=== PATIENT | female | born 1995 | race Caucasian/White ===

== ENCOUNTER → 2023-07-02 | Outpatient (CLI) | payer OTHER, SELFPAY ==
[2023-07-05 08:11] LABS: Chlamydia By Nucleic Acid AMP Negative (Negative); Gonococcus By Nucleic Acid AMP Negative (Negative)
== END | disposition home or self-care (01) ==
PROVIDERS: Visit Provider Nurse Practitioner Family
DX: N89.8 Other specified noninflammatory disorders of vagina (principal)
CPT/HCPCS: 87070; 87205; 87491; 87591

== ENCOUNTER → 2023-08-01 | Outpatient (CLI) | payer OTHER, SELFPAY ==
--- NOTE | 2023-08-01 10:19 | US_ITS ---
EXAM: US PELVIS TRANSVAGINAL CLINICAL INDICATION: PCOS TECHNIQUE: Endovaginal pelvic ultrasound was performed with grayscale and color Doppler imaging. Endovaginal imaging was used for better evaluation of the endometrium and adnexa. COMPARISON: No relevant prior studies available. FINDINGS: UTERUS/CERVIX: Uterus measures 8.0 x 5.3 x 2.4 cm. Endometrial thickness is 8 mm. RIGHT OVARY: Right ovary measures 7.0 x 6.6 x 6.0 cm and contains a 6 cm complex cyst consistent with hemorrhagic ovarian cyst. No evidence of torsion. LEFT OVARY: Left ovary measures 2.5 x 3.8 x 2.2 cm. Blood flow is present in the left ovary. FREE FLUID: Physiological amount of free fluid noted within the pelvis. US/Transvaginal Non- IMPRESSION: Complex 6 cm right ovarian cystic lesion consistent with hemorrhagic ovarian cyst. Short-interval pelvic ultrasound follow-up (6-12 weeks) is recommended to ensure resolution. Electronically Signed: Zeke Francois MD at 14:57 EDT ,
== END | disposition home or self-care (01) ==
PROVIDERS: PCP Family Medicine; Referring Provider Advanced Practice Midwife; Visit Provider Advanced Practice Midwife
DX: E28.2 Polycystic ovarian syndrome (principal)
CPT/HCPCS: 76830

== ENCOUNTER → 2023-08-08 | Outpatient (CLI) | payer OTHER, SELFPAY ==
[2023-08-08 11:40] LABS: Prolactin 14.1 ng/mL; Thyroid Stim Hormone (TSH) 1.34 uIU/mL (0.358-3.74)
[2023-08-08 12:31] LABS: Hemoglobin A1c 4.8 % (3.8-5.6)
[2023-08-15 01:07] LABS: Testosterone Free 2.6 pg/mL (0.0-4.2)
== END | disposition home or self-care (01) ==
LOC: LAB 10:29
PROVIDERS: PCP Family Medicine; Referring Provider Advanced Practice Midwife; Visit Provider Advanced Practice Midwife
DX: N97.9 Female infertility, unspecified (principal); E28.2 Polycystic ovarian syndrome
CPT/HCPCS: 82627; 83036; 84146; 84402; 84443; 82626

== ENCOUNTER → 2023-09-19 | Outpatient (CLI) | payer OTHER, SELFPAY ==
--- NOTE | 2023-09-19 09:58 | US_ITS ---
STUDY: ULTRASOUND OF THE FEMALE PELVIS - COMPLETE REASON FOR EXAM: Female, 28 years old. 6 week follow up cyst LMP: September 17, 2023. TECHNIQUE: Transvaginal TECHNICAL QUALITY: Adequate. COMPARISON: Comparison is made with prior study dated August 01, 2023. FINDINGS: The uterus is anteverted and is in a midline position. The uterus measures 6.7 cm x 4.5 cm x 2.9 cm. 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 Normal uterine cervix. The endometrium measures 8 mm in thickness, and is heterogeneous (striated). There is no demonstrated endometrial mass. There is no demonstrated myometrial mass. I.U.D. - The patient does not have an I.U.D. The right ovary is visualized. The right ovary measures 3.9 cm x 3.3 cm x 2.2 cm. There is no right ovarian cyst or ovarian mass. There is no visualized right adnexal mass or complex lesion. There is normal arterial and normal venous vascularity. The left ovary is visualized. The left ovary measures 3.8 cm x 3.8 cm x 3.3 cm. There is a dominant follicle measuring 1.8 cm by [place] by 1.9 cm. There is no visualized left adnexal mass or complex lesion. There is normal arterial and normal venous vascularity. There is no fluid in the cul-de-sac. US/Transvaginal Non- IMPRESSION: Interval decrease in size of the complex left ovarian cyst. Electronically Signed: Kwame Gibson MD at 11:01 EDT ,
== END | disposition home or self-care (01) ==
LOC: US 09:56
PROVIDERS: PCP Family Medicine; Referring Provider Advanced Practice Midwife; Visit Provider Advanced Practice Midwife
DX: N83.209 Unspecified ovarian cyst, unspecified side (principal)
CPT/HCPCS: 76830

== ENCOUNTER → 2023-10-30 | Outpatient (CLI) | payer OTHER, SELFPAY ==
[2023-11-01 14:09] LABS: PROGESTERONE 0.4 ng/mL (.)
[2023-11-03 15:08] LABS: Anti-Cardiolipin Ab, IgG, Qn 9 GPL U/mL (0-14); Anti-Cardiolipin Ab, IgM, Qn < 9 MPL U/mL (0-12); Beta-2-Glycoprotein I IgA <9 (0-25); Beta-2-Glycoprotein I IgG <9 (0-20); Beta-2-Glycoprotein I IgM <9 (0-32); Dilute Prothrombin Time (dPT) 31.8 sec (0.0-47.6); Dilute Russell Viper Venom 43.5 sec (0.0-47.0); Interpretation Comment: (.); PTT-LA 39.5 sec (0.0-43.5); Thrombin Time 18.6 sec (0.0-23.0)
== END | disposition home or self-care (01) ==
LOC: LAB 16:41
PROVIDERS: PCP Family Medicine; Referring Provider Advanced Practice Midwife; Visit Provider Advanced Practice Midwife
DX: E28.2 Polycystic ovarian syndrome (principal); N96 Recurrent pregnancy loss
CPT/HCPCS: 36415; 84144; 86146; 86147

== ENCOUNTER → 2023-12-04 | Outpatient (CLI) | payer OTHER, SELFPAY ==
[2023-12-06 08:12] LABS: PROGESTERONE 12.1 ng/mL (.)
== END | disposition home or self-care (01) ==
LOC: LAB 16:59
PROVIDERS: PCP Family Medicine; Referring Provider Advanced Practice Midwife; Visit Provider Advanced Practice Midwife
DX: E28.2 Polycystic ovarian syndrome (principal)
CPT/HCPCS: 36415; 84144

== ENCOUNTER → 2024-01-02 | Outpatient (CLI) | payer OTHER, SELFPAY ==
--- OUTSIDE RECORDS SUMMARY | 2024-01-02 09:15 | XMS RPT_ITS | CCD ---
Author Organization [facility] Care Team Providers Care Security Guard Name Role Phone GALINA WALLACE, DR LARA Primary Care Physician [phone] Galina WALLACE, Marco Espino Primary Care Provider Physician, No Pcp Primary Care Provider Unavaila GABRIELLA Andino Attending Unavailable PHYSICIAN, NO PCP Primary Care Unavailable PHYSICIAN, NO PCP Primary Care Unavailable NONE, NONE Primary Care Unavailable GRULLON DO, FOSTER K Admitting Unavailable GRULLON DO, FOSTER K Attending Unavailable TOM [phone], NASEEM Zapata Consulting U hina AGUERO CONSUMER SERVICES ADVISOR, SHONA Consulting Unavailable NONE, NONE Consulting Unavailable NONE, NONE Primary Care Unavailable YOANA IYER MD Admitting Unavailable YOANA IYER MD Attending Unavailable CORINA REYES, YA PENNINGTON Consulting Unavaila rhianna NUNEZ [phone], OSBALDO Consulting Sarah vacole HESTER [phone], JOHANNE Alvarez Consulting Unavai lable NONE, NONE Consulting Unavailable Marco Mojica MD Primary Care Provider MARCO MOJICA Primary Care Unavailable EMMANUEL MARTELL Attending Unavailabner GORDON MD, ADAM Primary Care Physician CATY WALLACE~[phone], CATY BONILLA V Admitting Unavailable NONE, NONE Consulting Unavailable NONE, NONE Primary Care Unavailable CATY WALLACE~[phone], CATY BONILLA V Attending Unavailable NONE, NONE Consulting Unavailable SOWMYA WALLACE, WOODROW Consulting Unavailable SOWMYA WALLACE, WOODROW Consulting Unavailable CATY WALLACE, CHAD Kaufman Consulting Unavailable CATY WALLACE, CHAD Kaufman Consulting Unavailable GALINA WALLACE, DR LARA Primary Care Unavailable THAD WALLACE, MARU Attending Unavailable DOLLY BLUE-IOANA, LIZ Attending Unavailabner MOJICA MD, DR LARA Primary Care Unavailable GALINA WALLACE, DR LARA Primary Care Unavailable AUGIE HANNAH MD Attending Unavailable LUNA VOSS, CARLEE GEORGE Attending Chela MOJICA MD, DR LARA Primary Care Unavailable DOLLY VOSS, LIZ Attending Yenni MOJICA MD, DR LARA Primary Care Unavailable DOLLY VOSS, LIZ Attending Yenni MOJICA MD, DR LARA Primary Care Unavailable Allergies Allergy Classification Reported Allergen(s) Allergy Type Date of Onset Reaction(s) Facility (4 sources) Contrast media; Translations: [iodinated radiocontrast agents] Drug allergy Dizziness (finding), Weal (disorder) [facility] (8 sources) Gadolinium-Contai shane Contrast Media; Translations: [GADOLINIUM-CONTA INING CONTRAST MEDIA] Drug Allergy 1 [facility] (3 sources) Iodinated Contrast Media; Translations: [IODINATED CONTRAST MEDIA] Drug Allergy 2 [facility] (1 source) Iodine (And Iodine Containting Drugs) Drug allergy (disorder) [facility] Repository Medications Current Medications Medication Drug Class(es) Dates Sig (Normalized) Sig (Original) doxycycline hyclate 100 mg oral capsule (3 sources) Tetracycline-class Drug Start: 2022 End: 02-11-2022 take 1 capsule by mouth twice daily doxycycline hyclate (VIBRAMYCIN) 100 mg capsule Indications: Vaginal discharge Take 1 capsule by mouth twice daily for 7 days. 14 capsule 0 2022 02/11/2022 Active Comment on above: Take 1 capsule by mo [facility] twice daily for 7 days. metroNIDAZOLE 500 mg oral tablet (2 sources) Nitroimidazole Antimicrobial Start: 02-06-2022 End: 02-13-2022 take 1 tablet by mouth twice daily metroNIDAZOLE (FLAGYL) 500 mg tablet Indications: Bacterial vaginosis Take 1 tablet by mouth twice daily for 7 days. 14 tablet 0 02/06/2022 02/13/2022 Active Comment on above: Take [address] [facility] twice daily for 7 days. Pharmacy See ORDER COMMENTS (3 sources) Start: 05-19-2016 Pharmacy See ORDER COMMENTS Start Date: 05/19/16 Status: Ordered progesterone 100 mg vaginal insert (2 sources) Progesterone progesterone (ENDOMETRIN) 100 mg vaginal insert Insert 100 mg into the vagina 2 (two) times a day. 0 Active Completed/Discontinued Medications Medication Drug Class(es) Dates Sig (Normalized) Sig (Original) acetaminophen 325 mg / HYDROcodone bitartrate 5 mg oral tablet (2 sources) Opioid Agonist Start: 02-15-2023 End: 02-18-2023 acetaminophen-hydr ocodone 325 mg-5 mg oral tablet Dose = 1 tab(s), Oral, q6h, PRN for pain, 0 Refill(s), 102 Start Date: 02/19/23 Status: Ordered dicyclomine hydrochloride 20 mg oral tablet (3 sources) Anticholinergic Start: 05-19-2016 End: 05-29-2016 Bentyl 20 mg oral tablet Dose : 20 mg = 1 tab(s), PO, QID, # 40 tab(s), 0 Refill(s) Start Date: 05/19/16 Stop Date: 05/29/16 Status: Ordered Problems Active Problems Problem Classification Problem Date Documented Date Episodic/Chronic Abdominal pain (1 source) Abdominal pain 02-17-2023 Episodic Anxiety disorders (1 source) Anxiety 02-19-2023 Chronic Cardiac dysrhythmias (1 source) Palpitations 02-19-2023 Episodic Diverticulosis and diverticulitis (1 source) Diverticular disease 02-19-2023 Chronic Essential hypertension (2 sources) Essential (primary) hypertension; Translations: [ESSENTIAL PRIMARY HYPERTENSION] Onset: 09-12-2021 Chronic Genitourinary symptoms and ill-defined conditions (1 source) Dysuria; Translations: [Dysuria] Episodic Inflammatory diseases of female pelvic organs (1 source) Bacterial vaginosis; Translations: [Acute vaginitis] Episodic Mood disorders (1 source) Depressive disorder 02-19-2023 Chronic Other female genital disorders (1 source) Vaginal discharge; Translations: [Other specified noninflammatory disorders of vagina] Episodic Other hematologic conditions (2 sources) Splenic cyst; Translations: [Cyst of spleen] Onset: 02-15-2023 Episodic Spontaneous (1 source) Miscarriage; Translations: [Complete or unspecified spontaneous without complication] Episodic Sprains and strains (3 sources) Strain of muscle, fascia and tendon of lower back, initial encounter; Translations: [STRAIN MUSC FASC TENDON LW BACK INT] Onset: 05-30-2022 Episodic Past or Other Problems Problem Classification Problem Date Documented Da te Episodic/Chronic Nonspecific chest pain (2 sources) Chest pain, unspecified; Translations: [CHEST PAIN UNSPECIFIED] Onset: 03-13-2021 Episodic Results Test Name Value Interpretation Reference Range Facil ity [facility] LCon 03-05-2023 Order Number [id number] [facility]) Comment on above: Performed By: #### 9 [id number] #### [address] [address] LC Test Name echinoccus granulosis ab Normal [facility] ([place]) Comment on above: Performed By: #### 9 [id number] #### [address] [place] [address] Test Source see report [facility]) Comment on above: Performed By: #### 9 [id number] #### [address] [address] [facility] Test Result COMMENT Normal [facility]) Comment on above: Result Comment: Test Ordered: [id number] Echinococcus Antibody Echinococcus Antibody Equivocal Reference Range: Negative Performed At: [facility] [address] [id number] Gia Mcgowan PhD Ph:[phone] Performed At: [facility] [address] [id number] Eric Chavira MD Ph:[phone] Performed By: #### 9 [id number] #### [address] [address] .Auto Diffon 02-15-2023 Basophil, Absolute 0.0 10 3/mcL Normal 0.0-0.2 [facility]) Comment on above: Performed By: #### A YAN WALLS, ADIFF, GFR, CBC, LIP, CMP #### [address] [address] Basophils/100 WBC (Bld) 0.3 % Normal 0.0-2.5 [facility]) Comment on above: Performed By: #### A YAN WALLS, ADIFF, GFR, CBC, LIP, CMP #### [address] [address] Eosinophil, Absolute 0.0 10 3/mcL Normal 0.0-0.4 [facility] ([place]) Comment on above: Performed By: #### A YAN WALLS, ADIFF, GFR, CBC, LIP, CMP #### [address] [address] Eosinophils/100 WBC (Bld) 0.7 % Normal 0.0-7.0 [facility] ([place]) Comment on above: Performed By: #### A YAN WALLS, ADIFF, GFR, CBC, LIP, CMP #### [address] [address] Lymphocyte, Absolute 2.1 10 3/mcL Normal 0.8-3.9 [facility] ([place]) Comment on above: Performed By: #### A YAN WALLS, SCOTTIFF, GFR, CBC, LIP, CMP #### [address] [address] Lymphocytes/100 WBC (Bld) 29.5 % Normal 10.0-50.0 [facility] ([place]) Comment on above: Performed By: #### A YAN WALLS, ADIFF, GFR, CBC, LIP, CMP #### [address] [address] Monocyte, Absolute 0.4 10 3/mcL Normal 0.2-1.0 [facility] ([place]) Comment on above: Performed By: #### A YAN WALLS, ADIFF, GFR, CBC, LIP, CMP #### [address] [address] Monocytes/100 WBC (Bld) 5.5 % Normal 1.7-13.0 [facility] ([place] Comment on above: Performed By: #### A YAN WALLS, ADIFF, GFR, CBC, LIP, CMP #### [address] [address] Neutrophils/100 WBC (Bld) 64.0 % Normal 37.0-80.0 [facility] ([place] Comment on above: Performed By: #### A YAN WALLS, ADIFF, GFR, CBC, LIP, CMP #### [address] [address] .GFRon 02-15-2023 GFR 149 ml/min/1.73sqm Normal [facility] ([place]) Comment on above: Result Comment: GFR Population mean for , Non- Americans Ages 20-29 = 116 mL/min/1.73 sq.m. Ages 30-39 = 107 mL/min/1.73 sq.m. Ages 40-49 = 99 mL/min/1.73 sq.m. Ages 50-59 = 93 mL/min/1.73 sq.m. Ages 60-69 = 85 mL/min/1.73 sq.m. Ages 70+ = 75 mL/min/1.73 sq.m. Chronic Kidney Disease: Less than 60 mL/min/1.73 square meters End Stage Renal Disease: Less than 15 mL/min/1.73 square meters Performed By: #### A YAN WALLS, ADIFF, GFR, CBC, LIP, CMP #### [address] [address] GFR Non- 123 ml/min/1.73sqm Normal [facility] ([place] Comment on above: Result Comment: GFR Population mean for , Non- Americans Ages 20-29 = 116 mL/min/1.73 sq.m. Ages 30-39 = 107 mL/min/1.73 sq.m. Ages 40-49 = 99 mL/min/1.73 sq.m. Ages 50-59 = 93 mL/min/1.73 sq.m. Ages 60-69 = 85 mL/min/1.73 sq.m. Ages 70+ = 75 mL/min/1.73 sq.m. Chronic Kidney Disease: Less than 60 mL/min/1.73 square meters End Stage Renal Disease: Less than 15 mL/min/1.73 square meters Performed By: #### A YAN WALLS, ADIFF, GFR, CBC, LIP, CMP #### [address] [address] .MDWon 02-15-2023 Monocyte Distribution Width 18.17 Normal 0.00-20.00 [facility] ([place]) Comment on above: Result Comment: For ED adult patients suspected of sepsis, MDW<=20.0 does not rule out sepsis or risk of sepsis Performed By: #### A YAN WALLS, ADIFF, GFR, CBC, LIP, CMP #### [place] [address] .NEUABSon 02-15-2023 Neutrophil, Absolute 4.5 10 3/mcL Normal 2.9-6.2 [facility] ([place] Comment on above: Performed By: #### A YAN WALLS, ADUZMA, GFR, CBC, LIP, CMP #### [place] [address] .Urinalysis Microscopic (AO) on 02-15-2023 UA Amorphus Trace Normal [facility] ([place] Comment on above: Performed By: #### 9 16462 #### [place] [address] UA Bacteria Trace Abnormal [facility] ([place] Comment on above: Performed By: #### 9 [address] #### [place] [address] UA Mucous 4+ /hpf Normal [facility] ([place] Comment on above: Performed By: #### 9 [address]38[address] #### [place] [address] UA RBC None Seen Normal None Seen [facility] [place] Comment on above: Performed By: #### 9 [id number] #### [place] [address] UA Squam Epithelial 5-10 Abnormal None Seen [facility] ([place] Comment on above: Performed By: #### 9 [address]1636 #### [place] [address] UA WBC 0-5 Abnormal None Seen [facility] [place] Comment on above: Performed By: #### 9 28069 #### [place] [address] CBCon 02-15-2023 Erythrocyte distribution width (RBC) [Ratio] 12.6 % Normal 11.5-14.5 [facility] ([place] Comment on above: Performed By: #### A YAN WALLS, ANIA, GFR, CBC, LIP, CMP #### [address] [address] Hematocrit (Bld) [Volume fraction] 45.3 % Normal 37.0-47.0 [facility] ([place] Comment on above: Performed By: #### A YAN WALLS, ANIA, GFR, CBC, LIP, CMP #### [place] [address] Hgb 15.3 G/dL Normal 12.0-16.0 [facility] [place] Comment on above: Performed By: #### A YAN WALLS, ANIA, GFR, CBC, LIP, CMP #### [place] [id number] MCH (RBC) [Entitic mass] 28.9 pg Normal 27.0-31.2 [facility] ([place] Comment on above: Performed By: #### A YAN WALLS, ANIA, GFR, CBC, LIP, CMP #### [place] [address] MCHC 33.7 G/dL Normal 33.0-37.0 [facility] [place] Comment on above: Performed By: #### A YAN WALLS, ANIA, GFR, CBC, LIP, CMP #### [place] [address] MCV (RBC) [Entitic vol] 85.7 fL Normal 80.0-94.0 [facility] [place] Comment on above: Performed By: #### A YAN WALLS, ANIA, GFR, CBC, LIP, CMP #### [place] [id number] Platelet 250 10 3/mcL Normal 130-400 [facility] ([place] Comment on above: Performed By: #### A YAN WALLS, ADIFF, GFR, CBC, LIP, CMP #### [address] [address] Platelet mean volume (Bld) [Entitic vol] 9.8 fL Normal 7.4-10.4 [facility] ([place] Comment on above: Performed By: #### A YAN WALLS, ANIA, GFR, CBC, LIP, CMP #### [address] [address] RBC 5.29 10 6/mcL Normal 4.20-5.40 [facility] ([place] Comment on above: Performed By: #### A YAN WALLS, ANIA, GFR, CBC, LIP, CMP #### [address] [address] WBC 7.0 10 3/mcL Normal 4.6-10.8 [facility] [place] Comment on above: Performed By: #### A YAN WALLS, ANIA, GFR, CBC, LIP, CMP #### [address] [address] CMPon 02-15-2023 Albumin Level 4.5 G/dL Normal 3.5-5.0 [facility] [place] Comment on above: Performed By: #### A YAN WALLS, ANIA, GFR, CBC, LIP, CMP #### [address] [address] Albumin/Globulin [Mass ratio] 1.2 {ratio} Normal 1.1-2.5 [facility] ([place] Comment on above: Performed By: #### A YAN WALLS, ANIA, GFR, CBC, LIP, CMP #### [address] [address] ALP [Catalytic activity/Vol] 101 U/L Normal 40-135 [facility] ([place] Comment on above: Performed By: #### A YAN WALLS, SCOTTIFF, GFR, CBC, LIP, CMP #### [address] [address] ALT [Catalytic activity/Vol] 29 U/L Normal 14-59 [facility] ([place] Comment on above: Performed By: #### A YAN WALLS, SCOTTIFF, GFR, CBC, LIP, CMP #### [address] [address] AST [Catalytic activity/Vol] 15 U/L Normal 10-40 [facility] ([place] Comment on above: Performed By: #### A YAN WALLS, ADIFF, GFR, CBC, LIP, CMP #### [address] [address] Bili Total 0.6 mg/dL Normal 0.2-1.0 [facility] ([place] Comment on above: Result Comment: Use of this assay is not recommended for patients undergoing treatment with eltrombopag due to the potential for falsely elevated results. Performed By: #### A YAN WALLS, ANIA, GFR, CBC, LIP, CMP #### [place] [id number] BUN/Creatinine Ratio 12 ratio Normal 7-27 [facility] ([place]) Comment on above: Performed By: #### A YAN WALLS, ANIA, GFR, CBC, LIP, CMP #### [address] [address] Calcium [Mass/Vol] 10.0 mg/dL Normal 8.4-10.2 [facility] ([place]) Comment on above: Performed By: #### A YAN WALLS, ANIA, GFR, CBC, LIP, CMP #### [address] [address] Chloride [Moles/Vol] 98 mmol/L Normal 98-107 [facility] ([place] Comment on above: Performed By: #### A YAN WALLS, ANIA, GFR, CBC, LIP, CMP #### [address] [address] CO2 [Moles/Vol] 25 mmol/L Normal 22-29 [facility] ([place] Comment on above: Performed By: #### A YAN WALLS, SCOTTIFF, GFR, CBC, LIP, CMP #### [address] [place] [address] Creatinine [Mass/Vol] 0.59 mg/dL Normal 0.55-1.02 [facility] ([place]) Comment on above: Performed By: #### A YAN WALLS, ANIA, GFR, CBC, LIP, CMP #### [address] [address] Electrolyte Balance 11.0 mEq/L Normal 4.0-15.0 [facility] ([place] Comment on above: Performed By: #### A YAN WALLS, ANIA, GFR, CBC, LIP, CMP #### [address] [address] Globulin 3.8 G/dL Normal [facility] ([place] Comment on above: Performed By: #### A YAN WALLS, ANIA, GFR, CBC, LIP, CMP #### [address] [address] Glucose [Mass/Vol] 101 mg/dL Normal 70-105 [facility] ([place] Comment on above: Performed By: #### A YAN WALLS, ANIA, GFR, CBC, LIP, CMP #### [address] [address] Potassium [Moles/Vol] 3.8 mmol/L Normal 3.5-5.1 [facility] ([place] Comment on above: Performed By: #### A YAN WALLS, ANIA, GFR, CBC, LIP, CMP #### [address] [address] Sodium [Moles/Vol] 134 mmol/L Low 136-145 [facility] ([place] Comment on above: Performed By: #### A YAN WALLS, ANIA, GFR, CBC, LIP, CMP #### [address] [address] Total Protein 8.3 G/dL High 6.4-8.2 [facility] ([place] Comment on above: Performed By: #### A YAN WALLS, SCOTTIFF, GFR, CBC, LIP, CMP #### [place] [address] [place], [place] [address] Urea nitrogen [Mass/Vol] 7 mg/dL Normal 7-18 [facility] ([place] Comment on above: Performed By: #### A YAN WALLS, ADIFF, GFR, CBC, LIP, CMP #### [place] [address] [place], [place] [address] CT ABD/PELVIS W/ IV CONTRAST ONLYon 02-15-2023 CT ABD/PELVIS W/ IV CONTRAST ONLY ORIGINAL EXAMINATION: CT OF THE ABDOMEN AND PELVIS WITH [id number]/9/2023 1:[address] ABDOMEN/PELVIS WITH CONTRAST TECHNIQUE: CT of the abdomen and pelvis was performed with the administration of intravenous contrast. Multiplanar reformatted images are provided for review. Automated exposure control, iterative reconstruction, and/or weight based adjustment of the mA/kV was utilized to reduce the radiation dose to as low as reasonably achievable. COMPARISON: 03/07/2022 MRI abdomen HISTORY: ORDERING SYSTEM PROVIDED HISTORY: Reason for Exam: Left upper pain FINDINGS: There are no lower thoracic findings. Liver: Normal size and density. No mass or biliary dilatation. Gallbladder: Physiologically distended and otherwise unremarkable in appearance. Common duct: Not dilated. Pancreas: No mass, inflammation, calcification or adjacent fluid collection. Stomach and duodenum: No mass or wall thickening. Spleen: Solid no mass and is normal in size. Cyst in the anterior spleen has increased in size, it measures 6.4 cm on today's study, it measured 4.6 cm on the prior study. Right Kidney: No hydronephrosis, solid mass or visible stone. Left Kidney: No hydronephrosis, solid mass or visible stone. Adrenal glands: Normal The large and small bowel loops are unremarkable in appearance. There is a normal appendix in the RIGHT lower quadrant. Retroperitoneum: No lymphadenopathy or hematoma. Aorta: No aneurysm. Urinary bladder: Normal Uterus and adnexal structures are unremarkable. Mesentery: No mass or inflammatory change. No ascites or free air. No abdominal wall masses or external hernias There are no suspicious bone lesions. IMPRESSION: Left-sided anterior splenic cyst which is increased in size compared to the prior study as above, this could relate to left upper quadrant pain. There is no visible acute process. Interpreted by: Domenico Lopes MD Preliminary Report By: Domenico Lopes MD Electronically signed By Domenico Lopes MD Dictated Date: 02/15/2023 1:29:53 PM Prelim Date: 02/15/2023 1:35:36 PM Sign Date: 02/15/2023 1:35:36 PM Ordering Provider: AUGIE Fagan [facility] ([place]) LABORATORYOrdered By: SYSTEM SYSTEM on 02-15-2023 Albumin BCP dye [Mass/Vol] 4.5 G/dL Normal 3.5 - 5.0 G/dL AO ADM SS Albumin/Globulin [Mass ratio] 1.2 {ratio} Normal 1.1 - 2.5 ratio AO ADM SS ALP [Catalytic activity/Vol] 101 U/L Normal 40 - 135 U/L AO ADM SS ALT With P-5'-P [Catalytic activity/Vol] 29 U/L Normal 14 - 59 U/L AO ADM SS AST With P-5'-P [Catalytic activity/Vol] 15 U/L Normal 10 - 40 U/L AO ADM SS Basophil, Absolute 0.0 103/mcL Normal 0.0 - 0.2 10^3/mcL AO Workflow SS Basophils/100 WBC (Bld) 0.3 % Normal 0.0 - 2.5 % AO Workflow SS Bilirubin [Mass/Vol] 0.6 mg/dL Normal 0.2 - 1.0 mg/dL AO ADM SS Comment on above: Interpretive Data: U se of this assay is not recommended for patients undergoing treatment with eltrombopag due to the potential for falsely elevated results. Calcium [Mass/Vol] 10.0 mg/dL Normal 8.4 - 10. 2 mg/dL AO ADM SS Chloride [Moles/Vol] 98 mmol/L Normal 98 - 107 mmol/L AO ADM SS CO2 [Moles/Vol] 25 mmol/L Normal 22 - 29 mmol/L AO AD M SS Creatinine [Mass/Vol] 0.59 mg/dL Normal 0.55 - 1.02 mg/dL AO ADM SS Electrolyte Balance 11.0 mEq/L Normal 4.0 - 15 .0 mEq/L AO ADM SS Eosinophil, Absolute 0.0 103/mcL Normal 0.0 - 0 .4 10^3/mcL AO Workflow SS Eosinophils/100 WBC (Bld) 0.7 % Normal 0.0 - 7.0 % AO Workflow SS Erythrocyte distribution width (RBC) [Ratio] 12.6 % Normal 11.5 - 14.5 % AO Workflow SS GFR/1.73 sq M.predicted among blacks MDRD (S/P/Bld) [Vol rate/Area] 149 ml/min/1.73sqm Invalid Interpretation Code AO Chemistry S Comment on above: Interpretive Data: GFR Population mean for , Non- Americans Ages 20-29 = 116 mL/min/1.73 sq.m. Ages 30-39 = 107 mL/min/1.73 sq.m. Ages 40-49 = 99 mL/min/1.73 sq.m. Ages 50-59 = 93 mL/min/1.73 sq.m. Ages 60-69 = 85 mL/min/1.73 sq.m. Ages 70+ = 75 mL/min/1.73 sq.m. Chronic Kidney Disease: Less than 60 mL/min/1.73 square meters End Stage Renal Disease: Less than 15 mL/min/1.73 square meters GFR/1.73 sq M.predicted among non-blacks MDRD (S/P/Bld) [Vol rate/Area] 123 ml/min/1.73sqm Invalid Interpretation Code AO Chemistry S Comment on above: Interpretive Data: GFR Population mean for , Non- Americans Ages 20-29 = 116 mL/min/1.73 sq.m. Ages 30-39 = 107 mL/min/1.73 sq.m. Ages 40-49 = 99 mL/min/1.73 sq.m. Ages 50-59 = 93 mL/min/1.73 sq.m. Ages 60-69 = 85 mL/min/1.73 sq.m. Ages 70+ = 75 mL/min/1.73 sq.m. Chronic Kidney Disease: Less than 60 mL/min/1.73 square meters End Stage Renal Disease: Less than 15 mL/min/1.73 square meters Globulin 3.8 G/dL Invalid Interpretation Code AO ADM SS Glucose [Mass/Vol] 101 mg/dL Normal 70 - 105 mg/dL AO ADM SS Hematocrit (Bld) [Volume fraction] 45.3 % Normal 37.0 - 47.0 % AO Workflow SS Hemoglobin (Bld) [Mass/Vol] 15.3 G/dL Normal 12.0 - 16.0 G/dL AO Workflow SS Lipase [Catalytic activity/Vol] 18 U/L Normal 16 - 77 U/L AO ADM SS Lymphocyte, Absolute 2.1 103/mcL Normal 0.8 - 3 .9 10^3/mcL AO Workflow SS Lymphocytes/100 WBC (Bld) 29.5 % Normal 10.0 - 50.0 % AO Workflow SS MCH (RBC) [Entitic mass] 28.9 pg Normal 27.0 - 31.2 pg AO Workflow SS MCHC 33.7 G/dL Normal 33.0 - 37.0 G/dL AO Workflow SS MCV (RBC) [Entitic vol] 85.7 fL Normal 80.0 - 94.0 fL AO Workflow SS Monocyte distribution width Auto (Bld) [Entitic vol] 18.17 1 Normal 0.00 - 20.00 AO Workflow SS Comment on above: Result Comment: For ED adult patients suspected of sepsis, MDW<=20.0 does not rule out sepsis or risk of sepsis Monocyte, Absolute 0.4 103/mcL Normal 0.2 - 1.0 10^3/mcL AO Workflow SS Monocytes/100 WBC (Bld) 5.5 % Normal 1.7 - 13.0 % AO Workflow SS Neutrophil, Absolute 4.5 103/mcL Normal 2.9 - 6 .2 10^3/mcL AO Workflow SS Neutrophils/100 WBC (Bld) 64.0 % Normal 37.0 - 80.0 % AO Workflow SS Platelet mean volume (Bld) [Entitic vol] 9.8 fL Normal 7.4 - 10.4 fL AO Workflow SS Platelets (Bld) [#/Vol] 250 103/mcL Normal 130 - 400 10^3/mcL AO Workflow SS Potassium [Moles/Vol] 3.8 mmol/L Normal 3.5 - 5.1 mmol/L AO ADM SS Protein [Mass/Vol] 8.3 G/dL High 6.4 - 8.2 G/dL AO ADM SS RBC (Bld) [#/Vol] 5.29 106/mcL Normal 4.20 - 5.4 0 10^6/mcL AO Workflow SS Sodium [Moles/Vol] 134 mmol/L Low 136 - 145 mmol/L AO ADM SS Urea nitrogen [Mass/Vol] 7 mg/dL Normal 7 - 18 mg/dL AO ADM SS Urea nitrogen/Creatinine [Mass ratio] 12 ratio Normal 7 - 27 ratio AO ADM SS WBC (Bld) [#/Vol] 7.0 103/mcL Normal 4.6 - 10.8 10^3/mcL AO Workflow SS LABORATORYOrdered By: Sherry Haney on 02-15-2023 Appearance (U) Cloudy *ABN* (02/15/23 12:24 PM) Invalid Interpretation Code Clear AO Auto Urine SS Bacteria LM.HPF (Urine sed) [#/Area] Trace /HPF Invalid Interpretation Code AO Auto Urine SS Bilirubin Ql (U) Negative (02/15/23 12:24 PM) Normal Negative AO Auto Urine SS Color (U) Yellow (02/15/23 12:24 PM) Normal AO Auto Urine SS Crystals.amorphous LM.HPF (Urine sed) [#/Area] Trace /HPF Normal AO Auto Urine SS Glucose Test strip (U) [Mass/Vol] Negative Normal Negative AO Auto Urine SS HCG ( test) Ql Negative (02/15/23 12:24 PM) Normal AO Manual Urine SS Hemoglobin Auto test strip (U) [Mass/Vol] Negative (02/15/23 12:24 PM) Normal Negative AO Auto Urine SS Ketones Ql (U) Negative Normal Negative AO Auto Ur ine SS test (u) int Not detected Invalid Interpretation Code AO Manual Urine SS UA Leuk Est Negative (02/15/23 12:24 PM) Normal Negative AO Auto Urine SS UA Mucous 4+ /HPF Normal AO Auto Urine SS UA Nitrite Negative (02/15/23 12:24 PM) Normal Negative AO Auto Urine SS UA pH 6.0 (02/15/23 12:24 PM) Normal 5.0 - 8.0 AO Auto Urine SS UA Protein Negative Normal Negative AO Auto Urine SS UA RBC None Seen /HPF Normal None Seen AO Auto Ur ine SS UA Spec Grav 1.025 (02/15/23 12:24 PM) Normal 1.015-1.025 AO Auto Urine SS UA Specimen Type Clean Catch (02/15/23 12:24 PM) Normal AO Auto Urine SS UA Squam Epithelial 5-10 /HPF Invalid Interpretation Code None Seen AO Auto Urine SS UA Urobilinogen 0.2 E.U./dL Normal 0.2-1.0 AO Auto Urine SS WBC LM.HPF (Urine sed) [#/Area] 0-5 /HPF Invalid Interpretation Code None Seen AO Auto Urine SS LIPon 02-15-2023 Lipase Level 18 U/L Normal 16-77 [facility] ([place]) Comment on above: Performed By: #### A TITI, MDW, ADIFF, GFR, CBC, LIP, CMP #### Porf[address]io [address] [address] PREGUon 02-15-2023 HCG ( test) Ql (U) Negative Normal [facility] ([place] Comment on above: Performed By: #### P REGU, UA, UAMICAO #### Por[address]irio [address] [address] test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 on above: Performed By: #### 1 9-0, , , ####[facility] Director - Mary Shaffer [id number] HGFR GLOMERULAR FILTRATION RATE INTERPRETATION~The eGFR is calculated using the MDRD equation.~This equation has been validated in patients with chronic kidney disease;~however, it underestimates the GFR in healthy patients with GFR's over 60 mL/min.~The equation is not valid in children under the age of 18.~NOTE: Criteria for Chronic Kidney Disease:~ ~1. Kidney damage for at least three months, as defined~by structural or functional abnormalities of the kidney,~with or without decreased glomerular filtration rate, manifested by either:~* Pathological abnormalities or~* Markers of Kidney damage, including abnormalities in~the composition of the blood or urine or abnormalities in imaging tests.~ ~2. GFR <60 mL/min/1.73 m squared for at least three months, with or without kidney damage.~ Normal [facility] Comment on above: Performed By: #### 1 9-0, , , ####[facility] Director - Mary Shaffer [id number] Potassium [Moles/Vol] 3.7 mmol/L Normal 3.5-5.1 [facility] Comment on above: Performed By: #### 1 9-0, , , ####[facility] - Mary Shaffer [id number] Protein [Mass/Vol] 6.8 g/dL Normal 6.4-8.2 [facility] Comment on above: Performed By: #### 1 9-0, , , ####[facility] Director - Mary Shaffer [id number] Sodium [Moles/Vol] 134 mmol/L Low 136-145 [facility] Comment on above: Performed By: #### 1 9-0, , , ####[facility] Director - Mary Shaffer [id number] Urea nitrogen [Mass/Vol] 7 mg/dL Normal 7-17 [facility] Comment on above: Performed By: #### 1 9-0, , , ####[facility] Director - Mary Shaffer [id number] Drugs identified Screen Nom (U)on 09-12-2021 Amphetamines Ql (U) Not detected Normal CUTOFF = 500 K [facility] Comment on above: Performed By: #### 1 2286-1 #### [facility] [address] [place] [address] T[employer]ode[employer] Rider - Mary GAUTAM [id number] Barbiturates Ql (U) Not detected Normal CUTOFF = 200 K [facility] Comment on above: Performed By: #### 1 2286-1 #### [facility] [address] [place] [address] [employer] - Mary GAUTAM [id number] Benzodiazepines Ql (U) Not detected Normal CUTOFF = 15 0 [facility] Comment on above: Performed By: #### 1 2286-1 #### [facility] [address] [place] [address] [employer] - Mary GAUTAM [id number] Cocaine Ql (U) Not detected Normal CUTOFF = 150 [facility] Comment on above: Performed By: #### 1 2286-1 #### [facility] [address] [place] [address] T[employer] Rode[employer] Rider - Mary Parra MILO [id number] [facility] Drugs of abuse screening provides only a preliminary analytical test result. A more specific alternate chemical method must be used in order to obtain a confimed analytical result. Clinical consideration and professional judgment should be applied to any drug of abuse test result, particularly when preliminary positive results are obtained. Normal [facility] Comment on above: Performed By: #### 1 2286-1 #### [facility] [address] [place] [address] Trick Rodeo Rider - [facility]Es[facility] HospitalIA [id number] Methadone Ql (U) Not detected Normal CUTOFF = 200 [facility] Comment on above: Performed By: #### 1 2286-1 #### [facility] [address] [place] [address] Trick Rodeo Rider - [facility] [id number] Opiates Ql (U) Not detected Normal CUTOFF = 300 [facility] Comment on above: Performed By: #### 1 2286-1 #### [facility] [address] [place] [address] Trick Rodeo Rider - [facility] CenterIA [id number] oxyCODONE Ql (U) Not detected Normal CUTOFF = 100 [facility] Comment on above: Performed By: #### 1 2286-1 #### [facility] [address] [place] [address] Trick Rodeo Rider - [facility] Center[facility] [id number] Phencyclidine Ql (U) Not detected Normal CUTOFF = 25 [facility] Comment on above: Performed By: #### 1 2286-1 #### [facility] [address] [place] [address] Trick Rodeo Rider - [facility] CenterIA [id number] Tetrahydrocannabinol Ql (U) Not detected Normal CUTOFF = 50 [facility] Comment on above: Performed By: #### 1 2286-1 #### [facility] [address] [place], [place] [address] [employer]ider - Mary PORTILLOIA [id number] HCG ( test) Ql (U)o n 09-12-2021 Beta HCG ( test) Ql (U) Negative Normal NEGATIVE [facility] Comment on above: Performed By: #### 2 106-3 #### [facility] [address] [place] [address] T[employer] Rode[employer] Rider - Mary PORTILLOIA [id number] #### UAR #### [place] [address] [place] [address] Trick [employer]ider - Mary PORTILLOIA [id number] Performed for [place] [address] [place] [address] HCG BLOODon 09-12-2021 HCG.beta subunit Qn m[IU]/mL Normal 1-3 [facility] Comment on above: Performed By: #### 1 1579-0, 00623-4, 70093-5, 72746-1 ####[place] [address] Director - Mary Shaffer [id number] HCG.beta subunit Qnon 2021 [facility] HCG INTERPRETATION The expected values were calculated non-parametrically and represent the central 95% of the population. When borderline results are encountered, patient samples should be drawn 48 hours later. The concentration of HCG rises rapidly during early . Gestational Age Expected HCG Values 0.2-1 week 5-50 1-2 weeks 50-500 2-3 weeks 100-5000 3-4 weeks 500-10,000 4-5 weeks 1000-50,000 5-6 weeks 10,000-100,000 6-8 weeks 15,000-200,000 2-3 months 10,000-100,000 Normal [facility] Comment on above: Performed By: #### 1 1579-0, 09289-9, 22223-0, 61362-2 ####[facility], [place] [address]Xayozwr Director - Mary Shaffer [id number] MAGNESIUMon 09-12-2021 Magnesium [Mass/Vol] 2.1 mg/dL Normal 1.6-2.6 [facility] Comment on above: Performed By: #### 1 1579-0, 85042-9, 59721-1, ####[facility] [address]Medical Director - Mary Shaffer [id number] TROPONIN HIGH SENSITIVITYon 09-12-2021 TNIH <3.00 Normal <=59.00 [facility] Comment on above: Result Comment: <59 pg/mL is considered a negative result. Performed By: #### T ROP2 #### [facility] [address] [place] [address] T[employer] Rode[employer] Rider - Mary GAUTAM [id number] TSH DL <= 0.05 mIU/L Qnon TSH Qn 1.200 uIU/mL Normal 0.358-3.740 [facility] Comment on above: Performed By: #### 1 1579-0, 33722-4, 15645-6, ####[facility] [address]Medical Director - Mary Shaffer [id number] URINALYSIS with reflex to CU LTUREon 09-12-2021 BACTERIA Normal TRACE [facility] Comment on above: Performed By: #### 2 106-3 #### [facility] [address] [place] [address] T[employer] Rode[employer] Rider - Mary GAUTAM [id number] #### UAR #### [facility] [address] [place] [address] T[employer] Rode[employer] Rider - Mary GAUTAM [id number] Performed for [facility] [address] [place] [address] Bilirubin Ql (U) Negative Normal NEGATIVE [facility] Comment on above: Performed By: #### 2 106-3 #### [facility] [address] [place] [address] T[employer] Rode[employer] Rider - Mary GAUTAM [id number] #### UAR #### [facility] [address] [place] [address] T[employer] Rode[employer] Rider - Mary GAUTAM [id number] Performed for [facility] [address] [place] [address] Clarity (U) CLEAR Normal CLEAR [facility] Comment on above: Performed By: #### 2 106-3 #### [facility] [address] [place] [address] T[employer] Rode[employer] Rider - Mary GAUTAM [id number] #### UAR #### [facility] [address] [place] [address] T[employer] Rode[employer] Rider - Mary GAUTAM [id number] Performed for [facility] [address] [place] [address] Color (U) YELLOW Normal YELLOW [facility] Comment on above: Performed By: #### 2 106-3 #### [facility] [address] [place] [address] T[employer] Rode[employer] Rider - Mary GAUTAM [id number] #### UAR #### [facility] [address] [place] [address] Trick Rode[employer] Rider - Mary GAUTAM [id number] Performed for [facility] [address] [place] [address] Glucose Ql (U) Negative Normal NEGATIVE [facility] Comment on above: Performed By: #### 2 106-3 #### [facility] [address] [place] [address] T[employer] Rode[employer] Rider - Mary GAUTAM [id number] #### UAR #### [facility] [address] [place] [address] Trick Rode[employer] Rider - Mary GAUTAM [id number] Performed for [facility] [address] [place] [address] Hemoglobin Ql (U) Negative Normal NEGATIVE [facility] Comment on above: Performed By: #### 2 106-3 #### [facility] [address] [place] [address] Trick Rodeo Rider - aMry GAUTAM [id number] #### UAR #### [facility] [address] [place] [address] Trick Rode[employer] Rider - Mary GAUTAM [id number] Performed for [facility] [address] [place] [address] HMICRO MICROSCOPIC Normal [facility] Comment on above: Performed By: #### 2 106-3 #### [facility] [address] [place] [address] Trick Rode[employer] Rider - Mary GAUTAM [id number] #### UAR #### [facility] [address] [place] [address] Trick Rodeo Rider - Mayr GAUTAM [id number] Performed for [facility] [address] [place] [address] Hyaline casts (Urine sed) [#/Area] Normal 0-8 [facility] Comment on above: Performed By: #### 2 106-3 #### [facility] [address] [place] [address] Trick Rodeo Rider - Mary GAUTAM [id number] #### UAR #### [facility] [address] [place] [address] Trick Rodeo Rider - Mary GAUTAM [id number] Performed for [facility] [address] [place] [address] KETONE Negative Normal NEGATIVE [facility] Comment on above: Performed By: #### 2 106-3 #### [facility] [address] [place] [address] Trick Rodeo Rider - Mary GAUTAM [id number] #### UAR #### [facility] [address] [place] [address] Trick Rodeo Rider - Mary GAUTAM [id number] Performed for [facility] [address] [place] [address] Leukocyte esterase Test strip Ql (U) Negative Normal TRACE [facility] Comment on above: Performed By: #### 2 106-3 #### [facility] [address] [place] [address] Trick Rode[employer] Rider - Mary GAUTAM [id number] #### UAR #### [facility] [address] [place] [address] Trick Rode[employer] Rider - Mary GAUTAM [id number] Performed for [facility] [address] [place] [address] Nitrite Ql (U) Negative Normal NEGATIVE [facility] Comment on above: Performed By: #### 2 106-3 #### [facility] [address] [place] [address] Trick Rode[employer] Rider - Mary GAUTAM [id number] #### UAR #### [facility] [address] [place] [address] Trick Rodeo Rider - Mary GAUTAM [id number] Performed for [facility] [address] [place] [address] pH (U) 6.5 [pH] Normal 5.5-7.5 [facility] Comment on above: Performed By: #### 2 106-3 #### [facility] [address] [place] [address] Trick Rodeo Rider - Mary GAUTAM [id number] #### UAR #### [facility] [address] [place] [address] Trick Rodeo Rider - Mary GAUTAM [id number] Performed for [facility] [address] [place] [address] Protein Ql (U) Negative Normal NEGATIVE [facility] Comment on above: Performed By: #### 2 106-3 #### [facility] [address] [place] [address] Trick Rodeo Rider - Mary GATUAM [id number] #### UAR #### [facility] [address] [place] [address] Trick Rode[employer] Rider - Mary GAUTAM [id number] Performed for [facility] [address] [place] [address] RBC LM.HPF (Urine sed) [#/Area] Normal 0-4 [facility] Comment on above: Performed By: #### 2 106-3 #### [facility] [address] [place] [address] Trick Rodeo Rider - Mary GAUTAM [id number] #### UAR #### [facility] [address] [place] [address] Trick Rodeo Rider - Mary GAUTAM [id number] Performed for [facility] [address] [place] [address] Specific gravity (U) [Rel density] 1.022 Normal 1.010-1.035 [facility] Comment on above: Performed By: #### 2 106-3 #### [facility] [address] [place] [address] Trick Rodeo Rider - Mary GAUTAM [id number] #### UAR #### [facility] [address] [place] [address] Trick Rodeo Rider - Mary GAUTAM [id number] Performed for [facility] [address] [place] [address] SQUAMOUS EPITHELIALS Normal 0-5 [facility] Comment on above: Performed By: #### 2 106-3 #### [facility] [address] [place] [address] Trick Rodeo Rider - Mary GAUTAM [id number] #### UAR #### [facility] [address] [place] [address] Trick Rodeo Rider - Mary GAUTAM [id number] Performed for [facility] [address] [place] [address] Urobilinogen Qn (U) 1.0 {Jasmyne'U}/dL Normal <=1.0 [facility] Comment on above: Performed By: #### 2 106-3 #### [facility] [address] [place] [address] Trick Rodeo Rider - Mary GAUTAM [id number] #### UAR #### [facility] [address] [place] [address] Trick Rodeo Rider - Mary GAUTAM [id number] Performed for [facility] [address] [place], [place] [address] WBC LM.HPF (Urine sed) [#/Area] Normal 0-5 [facility] Comment on above: Performed By: #### 2 106-3 #### [facility] [address] [place], [place] [address] Trick Rode[employer] Rider - Mary PORTILLOIA [id number] #### UAR #### [facility] [address] [place] [address] Trick Rodeo Rider [facility] CLIA [id number] Performed for [facility] [address] [place], [place] [address] HCG.beta subunit Qnon 2021 hCG Quant 1355 mIU/mL Normal [facility] Comment on above: Result Comment: Preg [place] Reference Ranges Negative = < 5 mIU/ml Positive = > OR EQUAL TO 5 mIU/ml The concentration of HCG rises rapidly during early . A maximum level of 5,000 to 200,000 mIU/ML is reached at 6-8 weeks. This is followed by a slow decline to levels of 1,000 to 50,000 mIU/ML during the third trimester. This test should be used only for the diagnosis and monitoring of . It should not be used for monitoring of neoplastic conditions including gestational trophoblastic disease (partial mole, complete hydatidiform mole, choriocarcinoma) or other tumors. For monitoring of neoplastic disease a Beta subunit HCG test should be ordered. Results obtained using different immunoassay methods are not interchangeable. Patient results should not be trended using values obtained with a different immunoassay method. Performed By: #### 2 1198-7 #### [facility] [address] [place] [address] Hemogram and platelets WO di fferential panel (Bld)on 07-20-2021 Basophils (Bld) [#/Vol] 0.10 10*3/uL Normal 0.00-0.20 [facility] Comment on above: Performed By: #### 2 4317-0 #### [facility] [address] [place] [address] Basophils/100 WBC (Bld) 0.6 % Normal 0.0-2.0 [facility] Comment on above: Performed By: #### 2 4317-0 #### [facility] [address] [place] [address] Eosinophils (Bld) [#/Vol] 0.10 10*3/uL Normal 0.00-0.70 [facility] Comment on above: Performed By: #### 2 4317-0 #### [facility] [address] [place] [address] Eosinophils/100 WBC (Bld) 0.8 % Normal 0.0-7.0 [facility] Comment on above: Performed By: #### 2 4317-0 #### [facility] [address] [place] [address] Erythrocyte distribution width (RBC) [Ratio] 12.8 % Normal 11.0-14.8 [facility] Comment on above: Performed By: #### 2 4317-0 #### [facility] [address] [place] [address] Hematocrit (Bld) [Volume fraction] 40.2 % Normal 35.0-45.0 [facility] Comment on above: Performed By: #### 2 4317-0 #### [facility] [address] [place] [address] Hemoglobin (Bld) [Mass/Vol] 14.0 g/dL Normal 12.0-16.0 [facility] Comment on above: Performed By: #### 2 4317-0 #### [facility] [address] [place] [address] Lymphocytes (Bld) [#/Vol] 3.10 10*3/uL Normal 1.00-4.80 [facility] Comment on above: Performed By: #### 2 4317-0 #### [facility] [address] [place] [address] Lymphocytes/100 WBC (Bld) 33.8 % Normal 22.0-44.0 [facility] Comment on above: Performed By: #### 2 7-0 #### [facility] [address] [place] [address] MCH 29.3 pcg Normal 27.0-34.0 [facility] Comment on above: Performed By: #### 2 4317-0 #### [facility] [address] [place] [address] MCHC (RBC) [Mass/Vol] 34.9 g/dL Normal 32.0-36.0 [facility] Comment on above: Performed By: #### 2 4317-0 #### [facility] [address] [place] [address] MCV (RBC) [Entitic vol] 84.0 fL Normal 80.0-97.0 [facility] Comment on above: Performed By: #### 2 4317-0 #### [facility] [address] [place] [address] Monocytes (Bld) [#/Vol] 0.50 10*3/uL Normal 0.00-0.90 [facility] Comment on above: Performed By: #### 2 4317-0 #### [facility] [address] [place] [address] Monocytes/100 WBC (Bld) 5.0 % Normal 0.0-12.0 [facility] Comment on above: Performed By: #### 2 4317-0 #### [facility] [address] [place] [address] Neutrophils Absolute 5.40 K/mcL Normal 1.80-7.70 [facility] Comment on above: Performed By: #### 2 4317-0 #### [facility] [address] [place] [address] Neutrophils/100 WBC (Bld) 59.8 % Normal 40.0-70.0 [facility] Comment on above: Performed By: #### 2 4317-0 #### [facility] [address] [place] [address] Platelet mean volume (Bld) [Entitic vol] 9.2 fL Normal 6.2-12.1 [facility] Comment on above: Performed By: #### 2 4317-0 #### [facility] [address] [place] [address] Platelets (Bld) [#/Vol] 219 10*3/uL Normal 142-424 [facility] Comment on above: Performed By: #### 2 4317-0 #### [facility] [address] [place] [address] RBC (Bld) [#/Vol] 4.79 10*6/uL Normal 3.80-5.10 [facility] Comment on above: Performed By: #### 2 4317-0 #### [facility] [address] [place] [address] WBC (Bld) [#/Vol] 9.0 10*3/uL Normal 4.6-10.2 [facility] Comment on above: Performed By: #### 2 4317-0 #### [facility] [address] [place] [address] Rh immune globulin screen (B ld) [Interp]on 07-20-2021 ABO group Nom (Bld) O Normal [facility] Comment on above: Performed By: #### 1 314-4 #### [facility] [address] [place] [address] Rh Type Positive Normal [facility] Comment on above: Performed By: #### 1 314-4 #### [facility] [address] [place] [address] RhIG Candidate RhIG not indicated Normal Mo [facility] Comment on above: Performed By: #### 1 314-4 #### [facility] [address] [place] [address] ABO group Nom (Bld) O [facility] Blood group antibody screen Ql Negative [employer] Rh Nom (Bld) Positive [employer] RhIG Candidate RhIG not indicated Tr [facility] [employer] HCG ( test) Ql (U)o n 07-19-2021 Preg Test, Ur Positive Abnormal Negative [facility] Comment on above: Performed By: #### 2 106-3 #### [facility] [address] [place] [address] HCG ( test) Ql (U)O rdered By: Sumi Watkins on 07-19-2021 Interpretation and review of laboratory results Abnormal [facility] [address] [employer] HCG qualitative, urineOrdere d By: Sumi Watkins on 07-19-2021 HCG ( test) Ql (U) Positive Abnormal Negative [employer] HCG.beta subunit Qnon 2021 HCG Qn 1355 m[IU]/mL mIU/mL [facility] [address] Comment on above: Reference Ranges Negative = < 5 mIU/ml Positive = > OR EQUAL TO 5 mIU/ml The concentration of HCG rises rapidly during early . A maximum level of 5,000 to 200,000 mIU/ML is reached at 6-8 weeks. This is followed by a slow decline to levels of 1,000 to 50,000 mIU/ML during the third trimester. This test should be used only for the diagnosis and monitoring of . It should not be used for monitoring of neoplastic conditions including gestational trophoblastic disease (partial mole, complete hydatidiform mole, choriocarcinoma) or other tumors. For monitoring of neoplastic disease a Beta subunit HCG test should be ordered. Results obtained using different immunoassay methods are not interchangeable. Patient results should not be trended using values obtained with a different immunoassay method. [employer] HCGQon 07-19-2021 HCGQ 2860.2 MIU/ML Normal less than 3 [facility] Comment on above: Result Comment: OMARE EARL COMMENTS Less than 5 mIU/ML NEGATIVE FOR 5-25 mIU/ML BORDERLINE; RETEST IN 48 HOURS, IF INDICATED Greater than 25 mIU/ML POSITIVE FOR WEEKS POST LMP RANGE IN mIU/ML* 3-4 9-130 4-5 75-2600 5-6 [phone] 6-7 [phone] 7-12 [id number] 12-16 [phone] 16-29 1400-40127 29-41 [phone] *These ranges are from published literature and may not be appropriate for all cases. When HCG levels are above 4000 mIU/ML, distinction between normal and abnormal is poor. The rate of change (doubling time) may be helpful. (Reference: NCCLS ) Performed By: #### L 550.99669, L550.76082 #### [facility] [address]# [phone] Hemogram and platelets WO di fferential panel (Bld)on 07-19-2021 Basophils (Bld) [#/Vol] 0.10 10*3/uL [employer] Basophils/100 WBC (Bld) 0.6 % 0.0 - 2.0 % [employer] Eosinophils (Bld) [#/Vol] 0.10 10*3/uL [employer] Eosinophils/100 WBC (Bld) 0.8 % 0.0 - 7.0 % [employer] Erythrocyte distribution width (RBC) [Ratio] 12.8 % 11.0 - 14.8 % [employer] Hematocrit (Bld) [Volume fraction] 40.2 % 35.0 - 45.0 % [facility] [address] Hemoglobin (Bld) [Mass/Vol] 14.0 g/dL 12.0 - 16.0 g/dL [facility] [address] Interpretation and review of laboratory results Normal [facility] [address] Lymphocytes (Bld) [#/Vol] 3.10 10*3/uL [facility] Lymphocytes/100 WBC (Bld) 33.8 % 22.0 - 44.0 % [facility] [address] MCH (RBC) [Entitic mass] 29.3 pg [facility] [address] MCHC (RBC) [Mass/Vol] 34.9 g/dL 32.0 - 36.0 g/dL [facility] [address] MCV (RBC) [Entitic vol] 84.0 fL [facility] [address] Monocytes (Bld) [#/Vol] 0.50 10*3/uL [facility] Monocytes/100 WBC (Bld) 5.0 % 0.0 - 12.0 % [facility] Neutrophils (Bld) [#/Vol] 5.40 10*3/uL [facility] Neutrophils/100 WBC (Bld) 59.8 % 40.0 - 70.0 % [facility] [address] Platelet mean volume (Bld) [Entitic vol] 9.2 fL [facility] [address] Platelets (Bld) [#/Vol] 219 10*3/uL [facility] RBC (Bld) [#/Vol] 4.79 10*6/uL [facility] WBC (Bld) [#/Vol] 9.0 10*3/uL [facility] No Panel Informationon 07-19 of unknown location. An ectopic is not excluded. Clinical/hCG correlation and follow-up sonography are recommended. -------- FINAL REPORT -------- Dictated By: Srinivas Wilson Dictated Date: 07/19/2021 20:51 Assigned Physician: Srinivas Wilson Reviewed and Electronically Signed By: Srinivas Wilson Signed Date: 07/19/2021 20:54 Workstation ID: [id number] Transcribed By: Self Edit Transcribed Date: 07/19/2021 20:51 POWERSCRIBE EXAMINATION TYPE: US OB LESS 14 WKS SINGLE OR FIRST GESTATION, US OB TRANSVAGINAL DATE OF EXAM : 07/19/2021 7:47 PM HISTORY: pelvic pain,, patient COMPARISON: NONE FINDINGS: Transabdominal imaging was performed. Transvaginal imaging was then performed to further evaluate the pelvic structures. The uterus is 7.4 x 4.1 x 5.7 cm. No myometrial masses. Endometrial stripe is 1.2 cm thick. No intrauterine . No amniotic fluid or placenta are demonstrated. The right and left ovaries are 3.1 x 3.3 x 3.3 and 2.8 x 2.8 x 2.9 cm respectively. A 2.1 x 2.3 x 1.6 cm mildly hypoechoic region within the right ovary is probably a corpus luteum. No adnexal masses or free pelvic fluid. POWERSCRIBE Srinivas Wilson MD - 07/19/2021 EXAMINATION TYPE: US OB LESS 14 WKS SINGLE OR FIRST GESTATION, US OB TRANSVAGINAL DATE OF EXAM : 07/19/2021 7:47 PM HISTORY: pelvic pain,, patient COMPARISON: NONE FINDINGS: Transabdominal imaging was performed. Transvaginal imaging was then performed to further evaluate the pelvic structures. The uterus is 7.4 x 4.1 x 5.7 cm. No myometrial masses. Endometrial stripe is 1.2 cm thick. No intrauterine . No amniotic fluid or placenta are demonstrated. The right and left ovaries are 3.1 x 3.3 x 3.3 and 2.8 x 2.8 x 2.9 cm respectively. A 2.1 x 2.3 x 1.6 cm mildly hypoechoic region within the right ovary is probably a corpus luteum. No adnexal masses or free pelvic fluid. IMPRESSION: of unknown location. An ectopic is not excluded. Clinical/hCG correlation and follow-up sonography are recommended. -------- FINAL REPORT -------- Dictated By: Srinivas Wilson Dictated Date: 07/19/2021 20:51 Assigned Physician: Srinivas Wilson Reviewed and Electronically Signed By: Srinivas Wilson Signed Date: 07/19/2021 20:54 Workstation ID: [id number] Transcribed By: Self Edit Transcribed Date: 07/19/2021 20:51 [facility] [address] Radiology Study observation (narrative) [facility] No Panel InformationOrdered By: Srinivas Wilson on 07-19-2021 [employer] Work Phone: PROGESTERONEon 07-19-2021 PROGESTERONE 25.43 NG/ML Normal SEE CHART [facility] Comment on above: Result Comment: Femboubacar le Reference range: Follicular 0.1 - 1.4 ng/ml Luteal 3.3 - 25.6 ng/ml Mid-luteal 4.4 - 28.0 ng/ml Postmenopausal 0.0 - 0.7 ng/ml : 1st Trimester 11.2 - 90.0 ng/ml 2nd Trimester 25.5 - 89.4 ng/ml 3rd Trimester 48.4 -422.5 ng/ml The presence of DHEA-S (a metabolite of DHEA, a steroid hormone that may be used as part of in vitro fertilization (IVF) protocols to improve ovarian response and IVF treatment outcomes), causes falsely elevated progesterone results around the clinically important decision level of 1 ng/ml of progesterone, on the [employer] Cent[employer] assay. For patients taking DHEA supplements, an alternate methodology should be used to measure progesterone concentrations. Performed By: #### L 550.37027, L550.77970 #### [facility] [address] [place] [address]# [phone] US OB LESS 14 WKS SINGLE OR FIRST GESTATIONon 07-19-2021 US OB LESS 14 WKS SINGLE OR FIRST GESTATION EXAMINATION TYPE: US OB LESS 14 WKS SINGLE OR FIRST GESTATION, US OB TRANSVAGINAL DATE OF EXAM : 07/19/2021 7:47 PM HISTORY: pelvic pain,, patient COMPARISON: NONE FINDINGS: Transabdominal imaging was performed. Transvaginal imaging was then performed to further evaluate the pelvic structures. The uterus is 7.4 x 4.1 x 5.7 cm. No myometrial masses. Endometrial stripe is 1.2 cm thick. No intrauterine . No amniotic fluid or placenta are demonstrated. The right and left ovaries are 3.1 x 3.3 x 3.3 and 2.8 x 2.8 x 2.9 cm respectively. A 2.1 x 2.3 x 1.6 cm mildly hypoechoic region within the right ovary is probably a corpus luteum. No adnexal masses or free pelvic fluid. IMPRESSION: of unknown location. An ectopic is not excluded. Clinical/hCG correlation and follow-up sonography are recommended. -------- FINAL REPORT -------- Dictated By: Srinivas Wilson Dictated Date: 07/19/2021 20:51 Assigned Physician: Srinivas Wilson Reviewed and Electronically Signed By: Srinivas Wilson Signed Date: 07/19/2021 20:54 Workstation ID: [id number] Transcribed By: Self Edit Transcribed Date: 07/19/2021 20:51 Normal [facility] US OB TRANSVAGINALon 022 US OB TRANSVAGINAL EXAMINATION TYPE: US OB LESS 14 WKS SINGLE OR FIRST GESTATION, US OB TRANSVAGINAL DATE OF EXAM : 07/19/2021 7:47 PM HISTORY: pelvic pain,, patient COMPARISON: NONE FINDINGS: Transabdominal imaging was performed. Transvaginal imaging was then performed to further evaluate the pelvic structures. The uterus is 7.4 x 4.1 x 5.7 cm. No myometrial masses. Endometrial stripe is 1.2 cm thick. No intrauterine . No amniotic fluid or placenta are demonstrated. The right and left ovaries are 3.1 x 3.3 x 3.3 and 2.8 x 2.8 x 2.9 cm respectively. A 2.1 x 2.3 x 1.6 cm mildly hypoechoic region within the right ovary is probably a corpus luteum. No adnexal masses or free pelvic fluid. IMPRESSION: of unknown location. An ectopic is not excluded. Clinical/hCG correlation and follow-up sonography are recommended. -------- FINAL REPORT -------- Dictated By: Srinivas Wilson Dictated Date: 07/19/2021 20:51 Assigned Physician: Srinivas Wilson Reviewed and Electronically Signed By: Srinivas Wilson Signed Date: 07/19/2021 20:54 Workstation ID: [id number] Transcribed By: Self Edit Transcribed Date: 07/19/2021 20:51 Normal [facility] Urinalysis dipstick W Reflex Culture panel (U)on 07-19-2021 Bacteria, Urine Few Abnormal None [facility] Comment on above: Performed By: #### 5 7019-2 #### [facility] [address] [place] [address] Bilirubin, Urine Negative Normal Negative [facility] Comment on above: Performed By: #### 5 7019-2 #### [facility] [address] [place] [address] Blood, Urine 3+ Abnormal Negative [facility] Comment on above: Performed By: #### 5 7019-2 #### [facility] [address] [place] [address] Clarity (U) Hazy Abnormal Clear [facility] Comment on above: Performed By: #### 5 7019-2 #### [facility] [address] [place] [address] Color (U) Yellow Normal Yellow [facility] Comment on above: Performed By: #### 5 7019-2 #### [facility] [address] [place] [address] Glucose Ql (U) Normal Normal Normal [facility] Comment on above: Performed By: #### 5 7019-2 #### [facility] [address] [place] [address] Ketones Ql (U) 80 mg/dL Abnormal Negative [facility] Comment on above: Performed By: #### 5 7019-2 #### [facility] [address] [place] [address] Leukocytes, Urine Negative Normal Negative [facility] Comment on above: Performed By: #### 5 7019-2 #### [facility] [address] [place] [address] Mucus, UA Many Abnormal None [facility] Comment on above: Performed By: #### 5 7019-2 #### [facility] [address] [place] [address] Nitrite, Urine Negative Normal Negative [facility] Comment on above: Performed By: #### 5 7019-2 #### [facility] [address] [place] [address] pH (U) 5.0 [pH] Normal 5.0-8.0 [facility] Comment on above: Performed By: #### 5 7019-2 #### [facility] [address] [place] [address] Protein (U) [Mass/Vol] 30 mg/dL Abnormal Negative [facility] Comment on above: Performed By: #### 5 7019-2 #### [facility] [address] [place] [address] RBC LM.HPF (Urine sed) [#/Area] 14 /[HPF] High 0-5 [facility] Comment on above: Performed By: #### 5 7019-2 #### [facility] [address] [place] [address] Specific [place] Urine 1.025 Normal 1.002-1.030 [facility] Comment on above: Performed By: #### 5 7019-2 #### [facility] [address] [place] [address] Squamous Epithelial, Urine Many Abnormal None [facility] Comment on above: Performed By: #### 5 7019-2 #### [facility] [address] [place] [address] Urobilinogen, Urine Normal Normal Normal [facility] Comment on above: Performed By: #### 5 7019-2 #### [facility] [address] [place] [address] WBC LM.HPF (Urine sed) [#/Area] 9 /[HPF] High 0-5 [facility] Comment on above: Performed By: #### 5 7019-2 #### [facility] [address] [place] [address] Bacteria LM.HPF (Urine sed) [#/Area] Few Abnormal None /HPF [facility] Bilirubin Ql (U) Negative Negative mg/dL [facility] Clarity (U) Hazy Abnormal Clear [facility] Color (U) Yellow Yellow [employer] Epithelial cells.squamous LM.HPF (Urine sed) [#/Area] Many Abnormal None /LPF [employer] Glucose Ql (U) Normal Normal mg/dL [employer] Hemoglobin Ql (U) 3+ Abnormal Negative [employer] Interpretation and review of laboratory results Abnormal [employer] Ketones (U) [Mass/Vol] 80 mg/dL Abnormal Negative mg/d L [employer] Leukocyte esterase Test strip Ql (U) Negative Negative WBCs/mcL [employer] Mucus Ql (Urine sed) Many Abnormal None /LPF [facility] Nitrite Ql (U) Negative Negative [facility] pH (U) 5.0 [pH] 5.0 - 8.0 [employer] Protein (U) [Mass/Vol] 30 mg/dL Abnormal Negative mg/d L [facility] RBC LM.HPF (Urine sed) [#/Area] 14 /[HPF] High [employer] Specific gravity (U) [Rel density] 1.025 [employer] Urobilinogen (U) [Mass/Vol] Normal Normal mg/dL [employer] WBC LM.HPF (Urine sed) [#/Area] 9 /[HPF] High [facility] HCGQon 07-17-2021 HCGQ 1594.7 MIU/ML Normal less than 3 [facility] [place] Comment on above: Result Comment: ONDINA ELLIOTT COMMENTS Less than 5 mIU/ML NEGATIVE FOR 5-25 mIU/ML BORDERLINE; RETEST IN 48 HOURS, IF INDICATED Greater than 25 mIU/ML POSITIVE FOR WEEKS POST LMP RANGE IN mIU/ML* 3-4 9-130 4-5 75-2600 5-6 [phone] 6-7 [phone] 7-12 [phone] 12-16 11044-938813 16-29 1400-98095 29-41 [phone] *These ranges are from published literature and may not be appropriate for all cases. When HCG levels are above 4000 mIU/ML, distinction between normal and abnormal is poor. The rate of change (doubling time) may be helpful. (Reference: [facility] ) Performed By: #### L 550.99305 #### [facility] [place] [address] PROGESTERONEon 07-17-2021 PROGESTERONE 3.64 NG/ML Normal SEE CHART [facility] Comment on above: Result Comment: Fema le Reference range: Follicular 0.1 - 1.4 ng/ml Luteal 3.3 - 25.6 ng/ml Mid-luteal 4.4 - 28.0 ng/ml Postmenopausal 0.0 - 0.7 ng/ml : 1st Trimester 11.2 - 90.0 ng/ml 2nd Trimester 25.5 - 89.4 ng/ml 3rd Trimester 48.4 -422.5 ng/ml The presence of DHEA-S (a metabolite of DHEA, a steroid hormone that may be used as part of in vitro fertilization (IVF) protocols to improve ovarian response and IVF treatment outcomes), causes falsely elevated progesterone results around the clinically important decision level of 1 ng/ml of progesterone, on the [employer] assay. For patients taking DHEA supplements, an alternate methodology should be used to measure progesterone concentrations. Performed By: #### L 550.59034 #### [facility] [address] [place] [address] GENITAL CULTUREon 04-22-2021 GENITAL CULTURE GENITAL RESULT NO NEISSERIA GONORRHOEAE ISOLATED BETA STREP RESULT NO BETA STREPTOCOCCUS ISOLATED NORMAL JOB FEW NORMAL JOB ORGANISM 1: YEAST QUANTITATION FEW Normal [facility] Comment on above: Performed By: #### M 100.56680 #### [facility] [address] [place] [address] PCR GC AND CHLAMon PCR CHLAMYDIA Not detected Normal NOT DETECTD [facility] Comment on above: Performed By: #### L 770.88550 #### [facility] [address] [place] [address] PCR GONORRHOEAE Not detected Normal NOT DETECTD [facility] Comment on above: Performed By: #### L 770.62517 #### [facility] [place] [address] HCGQon 04-13-2021 HCGQ LESS THAN 2.6 Normal less than 3 [facility] Comment on above: Result Comment: REFE EARL COMMENTS Less than 5 mIU/ML NEGATIVE FOR 5-25 mIU/ML BORDERLINE; RETEST IN 48 HOURS, IF INDICATED Greater than 25 mIU/ML POSITIVE FOR WEEKS POST LMP RANGE IN mIU/ML* 3-4 9-130 4-5 75-2600 5-6 [phone] 6-7 [phone] 7-12 37792-378189 12-16 [phone] 16-29 [phone] 29-41 [phone] *These ranges are from published literature and may not be appropriate for all cases. When HCG levels are above 4000 mIU/ML, distinction between normal and abnormal is poor. The rate of change (doubling time) may be helpful. (Reference: NCC ) Performed By: #### L 550.88638, L550.04513 #### [facility] [place] [address] PROGESTERONEon 04-13-2021 PROGESTERONE 0.72 NG/ML Normal SEE CHART [facility] Comment on above: Result Comment: Fema le Reference range: Follicular 0.1 - 1.4 ng/ml Luteal 3.3 - 25.6 ng/ml Mid-luteal 4.4 - 28.0 ng/ml Postmenopausal 0.0 - 0.7 ng/ml : 1st Trimester 11.2 - 90.0 ng/ml 2nd Trimester 25.5 - 89.4 ng/ml 3rd Trimester 48.4 -422.5 ng/ml The presence of DHEA-S (a metabolite of DHEA, a steroid hormone that may be used as part of in vitro fertilization (IVF) protocols to improve ovarian response and IVF treatment outcomes), causes falsely elevated progesterone results around the clinically important decision level of 1 ng/ml of progesterone, on the [employer] assay. For patients taking DHEA supplements, an alternate methodology should be used to measure progesterone concentrations. Performed By: #### L 550.23920, L550.74672 #### [facility] [address] [place] [address]# [phone] CT ABDOMEN AND PELVIS WITHOU T CONTRASTon 03-14-2021 CT ABDOMEN AND PELVIS WITHOUT CONTRAST EXAMINATION: CT ABDOMEN AND PELVIS WITHOUT CONTRAST, 03/13/2021 8:30 PM EST HISTORY: Pain COMPARISON: None. TECHNIQUE: CT scan of the abdomen and pelvis was performed without IV contrast. CT dose reduction technique was used, including Automated Exposure Control. FINDINGS: The lung bases are clear. The heart size is normal. A 3.2 cm low-density is seen about the anterior superior spleen, which can be better evaluated with ultrasound or MR imaging, but which CT appearance can be seen with a cyst or other benign etiology. The liver, gallbladder, pancreas and bilateral adrenal glands appear unremarkable on this noncontrast examination. Bilateral kidneys have an unremarkable noncontrasted appearance. There is no evidence for nephrolithiasis or hydronephrosis bilaterally. No ureteral calculus is seen bilaterally. The urinary bladder appears unremarkable. The stomach and duodenum appear unremarkable. Nonobstructive bowel pattern is seen. Normal-appearing appendix is visualized. Moderate to large volume of stool is seen throughout the colon. No significant spinal thickening is seen. No significant free fluid or abnormal fluid collection is seen in the abdomen or pelvis. Aortic and iliac arterial calcification is seen without aneurysmal dilatation. The abdominal and visualized soft tissues appear unremarkable. No acute osseous abnormality is seen. IMPRESSION: No acute abnormality on this noncontrast examination. 3.2 cm round low-density structure is seen in the anterior superior spleen, of uncertain etiology, but which appearance can be seen with benign etiology. If clinically indicated, this finding can be evaluated with ultrasound or MR imaging of the spleen. Normal appearing appendix is visualized. Normal [facility] CBC W Auto Differential pane l (Bld)on 03-13-2021 Basophils (Bld) [#/Vol] 0.02 10*3/uL Normal <=0.70 [facility] Comment on above: Performed By: #### 5 7021-8 ####[facility] Director - Mary FarrellCLIA [id number] Basophils/100 WBC (Bld) 0.2 % Normal <=2.0 [facility] Comment on above: Performed By: #### 5 7021-8 ####[place] [address] Director - Mary FarrellCLIA [id number] Eosinophils (Bld) [#/Vol] 0.07 10*3/uL Normal <=0.70 [facility] Comment on above: Performed By: #### 5 7021-8 ####[facility] Director - Mary FarrellCLIA [id number] Eosinophils/100 WBC (Bld) 0.8 % Normal <=10.0 [facility] Comment on above: Performed By: #### 5 7021-8 ####[facility] Director - Mary FarrellCLIA [id number] Erythrocyte distribution width (RBC) [Entitic vol] 35.8 fL Low 36.4-46.3 [facility] Comment on above: Performed By: #### 5 7021-8 ####[facility] Director - Mary FarrellCLIA [id number] Hematocrit (Bld) [Volume fraction] 40.6 % Normal 37.0-47.0 [facility] Comment on above: Performed By: #### 5 7021-8 ####[facility] Director - Mary FarrellCLIA [id number] Hemoglobin (Bld) [Mass/Vol] 14.0 g/dL Normal 12.0-16.0 [facility] Comment on above: Performed By: #### 5 7021-8 ####[facility] Director - Maryjazmine ParraCLIA [id number] Immature granulocytes (Bld) [#/Vol] 0.03 10*3/uL Normal <=0.10 [facility] Comment on above: Performed By: #### 5 7021-8 ####[place] [address] Director - Maryjazmine ParraCLIA [id number] Immature granulocytes/100 WBC (Bld) 0.30 % Normal <=1.50 [facility] Comment on above: Performed By: #### 5 7021-8 ####[address]ct[facility] Director - Maryjazmine ParraCLIA [id number] Lymphocytes (Bld) [#/Vol] 3.31 10*3/uL Normal 1.20-3.40 [facility] Comment on above: Performed By: #### 5 7021-8 ####[place] [address] Director - Maryjazmine AcevesIA [id number] Lymphocytes/100 WBC (Bld) 35.8 % Normal 20.0-40.0 [facility] Comment on above: Performed By: #### 5 7021-8 ####[facility] Director - Maryjazmine ParraCLIA [id number] MCH (RBC) [Entitic mass] 29.1 pg Normal 27.0-31.0 [facility] Comment on above: Performed By: #### 5 7021-8 ####[facility] Director - Mary FidelCLIA [id number] MCHC (RBC) [Mass/Vol] 34.5 g/dL Normal 32.0-36.0 [facility] Comment on above: Performed By: #### 5 7021-8 ####[facility], [place] [address]Lfoslon Director - Mary DavidrellCLIA [id number] MCV (RBC) [Entitic vol] 84.4 fL Normal 80.0-100.0 [facility] Comment on above: Performed By: #### 5 7021-8 ####[place] [address], [place] [address]Xufcvwa Director - Mary FarrellCLIA [id number] Monocytes (Bld) [#/Vol] 0.45 10*3/uL Normal 0.10-0.60 [facility] Comment on above: Performed By: #### 5 7021-8 ####[place] [address], [place] [address]Zobnlbo Director - Mary FarrellCLIA [id number] Monocytes/100 WBC (Bld) 4.9 % Normal <=8.0 [facility] Comment on above: Performed By: #### 5 7021-8 ####[facility] Director - Mary FarrellCLIA [id number] Neutrophils (Bld) [#/Vol] 5.36 10*3/uL Normal 1.40-6.50 [facility] Comment on above: Performed By: #### 5 7021-8 ####[facility], [place] [address]Wrigzes Director - Mary FarrellCLIA [id number] Neutrophils/100 WBC (Bld) 58.0 % Normal 50.0-70.0 [facility] Comment on above: Performed By: #### 5 7021-8 ####[facility], [place] [address]Cccdxpx Director - Mary FarrellCLIA [id number] Nucleated RBC (Bld) [#/Vol] 0.00 10*3/uL Normal <=0.10 [facility] Comment on above: Performed By: #### 5 7021-8 ####[facility] Director - Mary Shaffer [id number] Platelet mean volume (Bld) [Entitic vol] 11.9 fL Normal 9.0-13.0 [facility] Comment on above: Performed By: #### 5 7021-8 ####[facility] Director - Mary Shaffer [id number] Platelets (Bld) [#/Vol] 255 10*3/uL Normal 130-400 [facility] Comment on above: Performed By: #### 5 7021-8 ####[facility] Director - Mary Shaffer [id number] RBC (Bld) [#/Vol] 4.81 10*6/uL Normal 4.00-6.30 [facility] Comment on above: Performed By: #### 5 7021-8 ####[facility] Director - Mary Shaffer [id number] WBC (Bld) [#/Vol] 9.24 10*3/uL Normal 4.80-10.80 [facility] Comment on above: Performed By: #### 5 7021-8 ####[facility] Director - Mary Shaffer [id number] Comprehensive metabolic 2000 panelon 03-13-2021 Albumin [Mass/Vol] 3.9 g/dL Normal 3.4-5.0 [facility] Comment on above: Performed By: #### 3 040-3, 29088-5 ####[facility] Director - Mary Shaffer [id number] ALP [Catalytic activity/Vol] 88 U/L Normal 50-136 [facility] Comment on above: Performed By: #### 3 -3, ####[facility], [place] [address]Jatpmhj Director - Maryjazmine Shaffer [id number] ALT [Catalytic activity/Vol] 28 U/L Normal 14-59 [facility] Comment on above: Performed By: #### 3 -3, ####[facility] Director - Maryjazmine ParraCLIA [id number] Anion gap [Moles/Vol] 5.0 mmol/L Normal <=15.0 [facility] Comment on above: Performed By: #### 3 -3, ####[facility] Director - Maryjazmine HernandezrellCLMILO [id number] AST [Catalytic activity/Vol] 12 U/L Low 15-37 [facility] Comment on above: Performed By: #### 3 -3, ####[facility] Director - Mary FarrellCLIA [id number] Bilirubin [Mass/Vol] 0.4 mg/dL Normal 0.2-1.0 [facility] Comment on above: Performed By: #### 3 -3, ####[facility] Director - Maryjazmine HernandezrellCLIA [id number] Calcium [Mass/Vol] 9.0 mg/dL Normal 8.5-10.1 [facility] Comment on above: Performed By: #### 3 -3, ####[facility] Director - Maryjazmine HernandezrellCLIA [id number] Chloride [Moles/Vol] 104 mmol/L Normal 98-107 [facility] Comment on above: Performed By: #### 3 -3, ####[facility] Mary Shaffer [id number] CO2 [Moles/Vol] 28 mmol/L Normal 21-32 [facility] Comment on above: Performed By: #### 3 040-3, 84992-6 ####[facility] Mary KetanDC [id number] Creatinine [Mass/Vol] 0.43 mg/dL Low 0.51-0.95 [facility] Comment on above: Performed By: #### 3 040-3, ####[facility] [facility]GRACE [facility] [id number] GFR/1.73 sq M.predicted MDRD (S/P/Bld) [Vol rate/Area] mL/min/{1.73_m2} Normal >=59 [facility] Comment on above: Performed By: #### 3 040-3, ####[facility] Deena [id number] Glucose [Mass/Vol] 122 mg/dL High 74-106 [facility] Comment on above: Performed By: #### 3 040-3, ####[facility] FidelMILO [id number] HGFR GLOMERULAR FILTRATION RATE INTERPRETATION~The eGFR is calculated using the MDRD equation.~This equation has been validated in patients with chronic kidney disease;~however, it underestimates the GFR in healthy patients with GFR's over 60 mL/min.~The equation is not valid in children under the age of 18.~NOTE: Criteria for Chronic Kidney Disease:~ ~1. Kidney damage for at least three months, as defined~by structural or functional abnormalities of the kidney,~with or without decreased glomerular filtration rate, manifested by either:~* Pathological abnormalities or~* Markers of Kidney damage, including abnormalities in~the composition of the blood or urine or abnormalities in imaging tests.~ ~2. GFR <60 mL/min/1.73 m squared for at least three months, with or without kidney damage.~ Normal [facility] Comment on above: Performed By: #### 3 040-3, 38343-8 ####[facility] Director - Mary Shaffer [id number] Potassium [Moles/Vol] 3.3 mmol/L Low 3.5-5.1 [facility] Comment on above: Performed By: #### 3 040-3, 69425-7 ####[facility] Director - Mary Shaffer [id number] Protein [Mass/Vol] 7.7 g/dL Normal 6.4-8.2 [facility] Comment on above: Performed By: #### 3 040-3, 89491-1 ####[facility] Director - Mary Shaffer [id number] Sodium [Moles/Vol] 137 mmol/L Normal 136-145 [facility] Comment on above: Performed By: #### 3 040-3, 34799-3 ####[facility] Director - Mary Shaffer [id number] Urea nitrogen [Mass/Vol] 10 mg/dL Normal 7-17 [facility] Comment on above: Performed By: #### 3 040-3, 42477-4 ####[facility] Director - Mary Shaffer [id number] Heterophile Ab IA Qlon 03-13 MONO SCREEN Negative Normal [facility] Comment on above: Performed By: #### 6 425-3 ####[facility] Director - Mary Shaffer [id number] LIPASEon 03-13-2021 Lipase [Catalytic activity/Vol] 87 U/L Normal 73-393 [facility] Comment on above: Performed By: #### 3 040-3, 13827-5 ####[facility] [address]Medical Director - Mary Shaffer [id number] RIBS LEFT UNILATERAL WITH CX Ildefonso 03-13-2021 RIBS LEFT UNILATERAL WITH CXR RIBS LEFT UNILATERAL WITH CXR 03/13/2021 8:22 PM EST CLINICAL INDICATION: Left-sided rib pain COMPARISON: None. TECHNIQUE: Portable semiupright AP view of the chest. Multiple oblique views of the left ribs. FINDINGS: There are no tubes or implants noted. The cardiomediastinal silhouette and pulmonary vasculature is within normal limits. The lungs are clear. No pneumothorax or pleural effusion. Osseous structures and soft tissues are within normal limits. IMPRESSION: No acute cardiopulmonary abnormality. No displaced rib fractures. Normal [facility] URINALYSIS with reflex to CU LTUREon 03-13-2021 BACTERIA Normal TRACE [facility] Comment on above: Performed By: #### U AR #### [facility] [address] [place] [address] [employer] - Mary GAUTAM [id number] Performed for [facility] [address] [place], [place] [address] Bilirubin Ql (U) Negative Normal NEGATIVE [facility] Comment on above: Performed By: #### U AR #### [facility] [address] [place] [address] [employer] - Mary GAUTAM [id number] Performed for [facility] [address] [place], [place] [address] Clarity (U) CLEAR Normal CLEAR [facility] Comment on above: Performed By: #### U AR #### [facility] [address] [place] [address] [employer] - Mary GAUTAM [id number] Performed for [facility] [address] [place], [place] [address] Color (U) YELLOW Normal YELLOW [facility] Comment on above: Performed By: #### U AR #### [facility] [address] [place] [address] [employer] - Mary GAUTAM [id number] Performed for [facility] [address] [place], [place] [address] Glucose Ql (U) Negative Normal NEGATIVE [facility] Comment on above: Performed By: #### U AR #### [facility] [address] [place] [address] [employer]ider - Mary PORTILLOIA [id number] Performed for [facility] [address] [place], [place] [address] Hemoglobin Ql (U) Negative Normal NEGATIVE [facility] Comment on above: Performed By: #### U AR #### [facility] [address] [place] [address] [employer] - Mary GAUTAM [id number] Performed for [facility] [address] [place] [address] HMICRO MICROSCOPIC Normal [facility] Comment on above: Performed By: #### U AR #### [facility] [address] [place] [address] [employer] - Mary GAUTAM [id number] Performed for [facility] [address] [place], [place] [address] Hyaline casts (Urine sed) [#/Area] Normal 0-8 [facility] Comment on above: Performed By: #### U AR #### [facility] [address] [place] [address] [employer]ider - Mary GAUTAM [id number] Performed for [facility] [address] [place], [place] [address] KETONE Negative Normal NEGATIVE [facility] Comment on above: Performed By: #### U AR #### [facility] [address] [place] [address] [employer]ider - Mary GAUTAM [id number] Performed for [facility] [address] [place], [place] [address] Leukocyte esterase Test strip Ql (U) Negative Normal TRACE [facility] Comment on above: Performed By: #### U AR #### [facility] [address] [place], [place] [address] [employer] - Mary GAUTAM [id number] Performed for [facility] [address] [place], [place] [address] Nitrite Ql (U) Negative Normal NEGATIVE [facility] Comment on above: Performed By: #### U AR #### [facility] [address] [place], [place] [address] [employer] - Mary GAUTAM [id number] Performed for [facility] [address] [place], [place] [address] pH (U) 5.5 [pH] Normal 5.5-7.5 [facility] Comment on above: Performed By: #### U AR #### [facility] [address] [place], [place] [address] [employer] - Mary GAUTAM [id number] Performed for [facility] [address] [place], [place] [address] Protein Ql (U) Negative Normal NEGATIVE [facility] Comment on above: Performed By: #### U AR #### [facility] [address] [place] [address] [employer]ider - Mary GAUTAM [id number] Performed for [facility] [address] [place], [place] [address] RBC LM.HPF (Urine sed) [#/Area] Normal 0-4 [facility] Comment on above: Performed By: #### U AR #### [facility] [address] [place], [place] [address] [employer]ider - Mary GAUTAM [id number] Performed for [facility] [address] [place], [place] [address] Specific gravity (U) [Rel density] 1.024 Normal 1.010-1.035 [facility] Comment on above: Performed By: #### U AR #### [facility] [address] [place], [place] [address] [employer] - Mary GAUTAM [id number] Performed for [facility] [address] [place], [place] [address] SQUAMOUS EPITHELIALS Normal 0-5 [facility] Comment on above: Performed By: #### U AR #### [facility] [address] [place] [address] [employer]ider - Mary GAUTAM [id number] Performed for [facility] [address] [place] [address] Urobilinogen Qn (U) 1.0 {Jasmyne'U}/dL Normal <=1.0 [facility] Comment on above: Performed By: #### U AR #### [facility] [address] [place] [address] [employer]ider - Mary GAUTAM [id number] Performed for [facility] [address] [place] [address] WBC LM.HPF (Urine sed) [#/Area] Normal 0-5 [facility] Comment on above: Performed By: #### U AR #### [facility] [address] [place] [address] [employer]ider - Mary GAUTAM [id number] Performed for [facility] [address] [place] [address] VIRAL RESPIRATORY PANELon Adenovirus Not detected Normal NOT DETECTED [facility] Comment on above: Performed By: #### R ESPIRA #### [facility] [address] [place] [address] [employer]ider - Mary GAUTAM [id number] Performed for [facility] [address] [place] [address] B parapertussis Not detected Normal NOT DETECTED [facility] Comment on above: Performed By: #### R ESPIRA #### [facility] [address] [place] [address] [employer] Rider - Mary GAUTAM [id number] Performed for [facility] [address] [place] [address] B pertussis Not detected Normal NOT DETECTED [facility] Comment on above: Performed By: #### R ESPIRA #### [facility] [address] [place] [address] [employer]ider - Mary GAUTAM [id number] Performed for [facility] [address] [place], [place] [address] Chlamydia pneumoniae Not detected Normal NOT DETECTED [facility] Comment on above: Performed By: #### R ESPIRA #### [facility] [address] [place], [place] [address] [employer] - Mary Parra [place] [id number] Performed for [facility] [address] [place], [place] [address] CORONAVIRUS [id number] Not detected Normal NOT DETECTED [facility] Comment on above: Performed By: #### R ESPIRA #### [facility] [address] [place], [place] [address] [employer] Rider - MaryH[facility] InfirmaryParra [place] [id number] Performed for [facility] [address] [place], [place] [address] CORONAVIRUS HKU1 Not detected Normal NOT DETECTED [facility] Comment on above: Performed By: #### R ESPIRA #### [facility] [address] [place], [place] [address] T[employer] Rode[employer] Rider - [facility]rayEs[facility] HospitalIA [id number] Performed for [facility] [address] [place], [place] [address] CORONAVIRUS NL63 Not detected Normal NOT DETECTED [facility] Comment on above: Performed By: #### R ESPIRA #### [facility] [address] [place], [place] [address] T[employer]ider - Mary Parra MILO [id number] Performed for [facility] [address] [place], [place] [address] CORONAVIRUS OC43 Not detected Normal NOT DETECTED [facility] Comment on above: Performed By: #### R ESPIRA #### [facility] [address] [place], [place] [address] [employer]ider - Mary Parra MILO [id number] Performed for [facility] [address] [place], [place] [address] HPCR TESTING PERFORMED BY PCR METHODOLOGY Normal [facility] Comment on above: Performed By: #### R ESPIRA #### [facility] [address] [place], [place] [address] T[employer] Rider - Mary GAUTAM [id number] Performed for [facility] [address] [place], [place] [address] HPCRB TEST PERFORMED USING BIOFIRE Normal [facility] Comment on above: Performed By: #### R ESPIRA #### [facility] [address] [place], [place] [address] T[employer] Rider - Mary GAUTAM [id number] Performed for [facility] [address] [place], [place] [address] Human Metapneumoviru Not detected Normal NOT DETECTED [facility] Comment on above: Performed By: #### R ESPIRA #### [facility] [address] [place], [place] [address] T[employer] Rider - Mary GAUTAM [id number] Performed for [facility] [address] [place], [place] [address] Influenza A Not detected Normal NOT DETECTED [facility] Comment on above: Performed By: #### R ESPIRA #### [facility] [address] [place] [address] [employer] Rider - Mary GAUTAM [id number] Performed for [facility] [address] [place], [place] [address] Influenza A / H1 Normal NOT DETECTED [facility] Comment on above: Performed By: #### R ESPIRA #### [facility] [address] [place], [place] [address] T[employer] R[employer] Rider - Mary GAUTAM [id number] Performed for [facility] [address] [place], [place] [address] Influenza A / H3 Normal NOT DETECTED [facility] Comment on above: Performed By: #### R ESPIRA #### [facility] [address] [place], [place] [address] T[employer] R[employer] Rider - Mary GAUTAM [id number] Performed for [facility] [address] [place], [place] [address] Influenza A H1-2009 Normal NOT DETECTED [facility] Comment on above: Performed By: #### R ESPIRA #### [facility] [address] [place] [address] T[employer] Rode[employer] Rider - Mary GAUTAM [id number] Performed for [facility] [address] [place], [place] [address] Influenza B Not detected Normal NOT DETECTED [facility] Comment on above: Performed By: #### R ESPIRA #### [facility] [address] [place], [place] [address] T[employer] Rode[employer] Rider - MaryH[facility] InfirmaryParra [place] [id number] Performed for [facility] [address] [place], [place] [address] Mycoplasma pneumonia Not detected Normal NOT DETECTED [facility] Comment on above: Performed By: #### R ESPIRA #### [facility] [address] [place], [place] [address] T[employer] Rodeo Rider - MaryEssex [facility] HospitalIA [id number] Performed for [facility] [address] [place], [place] [address] Parainfluenza 1 Not detected Normal NOT DETECTED [facility] Comment on above: Performed By: #### R ESPIRA #### [facility] [address] [place], [place] [address] T[employer] R[employer] Rider - Mary Parra CLIA [id number] Performed for [facility] [address] [place], [place] [address] Parainfluenza 2 Not detected Normal NOT DETECTED [facility] Comment on above: Performed By: #### R ESPIRA #### [facility] [address] [place] [address] T[employer] R[employer] Rider - Mary Parra [place] [id number] Performed for [facility] [address] [place], [place] [address] Parainfluenza 3 Not detected Normal NOT DETECTED [facility] Comment on above: Performed By: #### R ESPIRA #### [facility] [address] [place], [place] [address] T[employer] R[employer] Rider - Mary Parra CLIA [id number] Performed for [facility] [address] [place], [place] [address] Parainfluenza 4 Not detected Normal NOT DETECTED [facility] Comment on above: Performed By: #### R ESPIRA #### [facility] [address] [place] [address] T[employer] Rode[employer] Rider - Mary Parra CLIA [id number] Performed for [facility] [address] [place] [address] Rhinovirus Not detected Normal NOT DETECTED [facility] Comment on above: Performed By: #### R ESPIRA #### [facility] [address] [place] [address] T[employer] R[employer] Rider - Mary Parra CLIA [id number] Performed for [facility] [address] [place] [address] RSV Not detected Normal NOT DETECTED [facility] Comment on above: Performed By: #### R ESPIRA #### [place] [address] [place] [address] T[employer] Rode[employer] Rider - MaryEs[facility] HospitalIA [id number] Performed for [place] [address] [place] [address] SARS-CoV-2 (COVID-19) RNA PETER+probe Ql (Unsp spec) Not detected Normal NOT DETECTED [facility] Comment on above: Performed By: #### R ESPIRA #### [place] [address] [place] [address] T[employer] Rodeo Rider - MaryEssex [facility] HospitalIA [id number] Performed for [facility] [address] [place] [address] HCGQon 09-04-2020 HCGQ LESS THAN 2.6 Normal less than 3 [facility] [place] Comment on above: Result Comment: REFE RUTCE COMMENTS Less than 5 mIU/ML NEGATIVE FOR 5-25 mIU/ML BORDERLINE; RETEST IN 48 HOURS, IF INDICATED Greater than 25 mIU/ML POSITIVE FOR WEEKS POST LMP RANGE IN mIU/ML* 3-4 9-130 4-5 75-2600 5-6 [phone] 6-7 [phone] 7-12 [id number] 12-16 [id number] 16-29 [phone] 29-41 [phone] *These ranges are from published literature and may not be appropriate for all cases. When HCG levels are above 4000 mIU/ML, distinction between normal and abnormal is poor. The rate of change (doubling time) may be helpful. (Reference: NCCLS ) Performed By: #### L 550.62959 #### [facility] [address] [place] [address] CHEST (TWO VIEWS) - CXRon CHEST (TWO VIEWS) - CXR [place] [address] Name: JEFF PORTILLO Linda Phys: MARCO MOJICA M.D. : [birth year] Age: 25 Sex: F Acct: [id number] Loc: RAD Exam Date: 08/21/20 Status: REG CLI Radiology No.: [id number] Unit Number: [id number] Exam # Type/Exam [id number] RAD / CHEST (TWO VIEWS) - CXR XR CHEST 2 VIEWS CLINICAL STATEMENT: Left-sided rib and chest pain. Prior smoking history. COMPARISON: 11/06/2018. FINDINGS: Lungs are clear. There is a normal cardiac and pulmonary contour. No acute airspace disease, pleural effusion or pneumothorax is present. Skeletal elements are intact and age-appropriate. IMPRESSION: No acute chest process. Electronically signed by: Lei Mayfield DO 08/21/2020 7:51 PM CDT < > Reported By: LEI MAYFIELD D.O. Signed In PowerScribe By: LEI MAYFIELD D.O. << Signature on File>> Reported By: LEI MAYFIELD D.O. Signed By: LEI MAYFIELD D.O. Tests performed at: [place] [address] Normal [facility] INSULINon 09-27-2019 INSULIN 23.2 uIU/mL Normal 2.6-24.9 [facility] Comment on above: Result Comment: Perf ormed at: CB - [facility] [address] [id number] [place] Worker: Juan M Nielsen PhD, Phone: [phone] Performed By: #### L 429.9923, L471.8397 #### [place] [address] TESTOSFREEon 09-27-2019 TESTOSFREE 3.8 pg/mL Normal 0.0-4.2 [facility] Comment on above: Result Comment: Perf ormed at: BN - [facility] [address] [id number] [place] Worker: Cait Reyes MD, Phone: [phone] Performed By: #### L 451.6815, L263.9838 #### [place] [address] CBC NO DIFon 09-21-2019 Erythrocyte distribution width (RBC) [Ratio] 12.5 % Normal 12.5-15.7 [facility] Comment on above: Performed By: #### L 200.0005 #### [facility] - [facility]AT[facility] [address] [place] [address] Hematocrit (Bld) [Volume fraction] 40.4 % Normal 36.0-48.0 [facility] Comment on above: Performed By: #### L 200.0005 #### [facility] [address] [place] [address] Hemoglobin (Bld) [Mass/Vol] 13.9 g/dL Normal 12.0-16.0 [facility] Comment on above: Performed By: #### L 200.0005 #### [facility] [address] [place] [address] MCH (RBC) [Entitic mass] 29.7 pg Normal 28.5-32.9 [facility] Comment on above: Performed By: #### L 200.0005 #### [facility] [address] [place] [address] MCHC (RBC) [Mass/Vol] 34.3 g/dL Normal 33.0-36.0 [facility] Comment on above: Performed By: #### L 200.0005 #### [facility] [address] [place] [address] MCV (RBC) [Entitic vol] 86.7 fL Normal 80.0-99.0 [facility] Comment on above: Performed By: #### L 200.0005 #### [facility] [address] [place] [address] Platelet mean volume (Bld) [Entitic vol] 10.1 fL High 7.5-9.5 [facility] Comment on above: Performed By: #### L 200.0005 #### [facility] [address] [place] [address] PLT 219 X10(3) Normal 150-450 [facility] Comment on above: Performed By: #### L 200.0005 #### [facility] [address] [place] [address] RBC 4.66 x10(6) Normal 3.30-5.00 [facility] Comment on above: Performed By: #### L 200.0005 #### [facility] [address] [place] [address] WBCHS 6.3 x10(3) Normal 4.5-10.0 [facility] Comment on above: Performed By: #### L 200.0005 #### [facility] [address] [place] [address] FSHon 09-21-2019 FSH 7.16 mIU/mL [facility] Comment on above: Result Comment: Fema le Ref. Ranges Follicular Phase: 3.5 - 12.5 mIU/mL Ovulation Phase: 4.7 - 12.5 mIU/mL Luteal Phase : 1.7 - 7.7 mIU/mL Post-Menopause : 25.8-134.8 mIU/mL Performed By: #### L 304.0170, L100.0060, L304.0140, L304.0480, L304.0180 #### [facility] [address] [place] [address] GLUCOSEon 09-21-2019 Glucose [Mass/Vol] 92 mg/dL Normal 74-106 [facility] Comment on above: Performed By: #### L 304.0170, L100.0060, L304.0140, L304.0480, L304.0180 #### [facility] [address] [place] [address] LHon 09-21-2019 LH 9.12 mIU/mL [facility] Comment on above: Result Comment: Toni huynh Ref. Ranges Follicular Phase : 2.4 - 12.6 mIU/mL Ovulatory Peak : 14.0 - 95.6 mIU/mL Luteal Phase : 1.0 - 11.4 mIU/mL Post-Menopausal : 7.7 - 58.5 mIU/mL Performed By: #### L 304.0170, L100.0060, L304.0140, L304.0480, L304.0180 #### [facility] [address] [place] [address] TESTOSTERONE TOon 09-21-2019 TESTOSTERONE TO 44.67 ng/dL Normal 8.40-48.1 [facility] Comment on above: Performed By: #### L 304.0170, L100.0060, L304.0140, L304.0480, L304.0180 #### [facility] [address] [place] [address] TSHon 09-21-2019 TSH 1.40 uIU/mL Normal 0.27-4.20 [facility] Comment on above: Performed By: #### L 304.0170, L100.0060, L304.0140, L304.0480, L304.0180 #### - LABORATORY [address] [place] [address] Vital Signs Date Time Vital Sign Value Performing Clinician Yawi angelay 02-15-2023 11:53-0500 Body temperature 98.6 [degF] AUGIE HANNAH MD [facility] 02-15-2023 11:53-0500 Body weight 101 kg AUGIE HANNAH MD [facility] 02-15-2023 11:53-0500 Diastolic Blood Pressure Non-Invasive 116 mm[Hg] AUGIE HANNAH MD [facility] 02-15-2023 11:53-0500 Heart rate 100 /min AUGIE HANNAH MD [facility] 02-15-2023 11:53-0500 Respiratory rate 16 /min AUGIE HANNAH MD [facility] 02-15-2023 11:53-0500 Systolic Blood Pressure Non-Invasive 169 mm[Hg] AUGIE HANNAH MD [facility] 2022 11:50-0500 Body temperature 97.9 [degF] Isi Martell APRN.DIPLOMA MEDICAL ASSISTANT Work Phone: [facility] 2022 11:50-0500 Body weight 102.51 kg Isi Martell APRN.DIPLOMA MEDICAL ASSISTANT Work Phone: [facility] 2022 11:50-0500 Diastolic blood pressure 89 mm[Hg] Isi Martell APRN.DIPLOMA MEDICAL ASSISTANT Work Phone: [facility] 2022 11:50-0500 Heart rate 49 /min Isi Martell APRN.DIPLOMA MEDICAL ASSISTANT Work Phone: [facility] 2022 11:50-0500 SaO2% (BldA) [Mass fraction] 96 % Isi Martell APRN.DIPLOMA MEDICAL ASSISTANT Work Phone: [facility] 2022 11:50-0500 Systolic blood pressure 140 mm[Hg] Isi Martell APRN.DIPLOMA MEDICAL ASSISTANT Work Phone: [facility] 09-11-2021 18:26-0400 Body height 172.7 cm No Physician [facility] [address] 09-11-2021 18:26-0400 Body mass index (BMI) [Ratio] 34.21 kg/m2 No Physician [facility] [address] 09-11-2021 18:26-0400 Body temperature 99.1 [degF] No Physician [facility] [address] 09-11-2021 18:26-0400 Body weight 102.06 kg No Physician [facility] [address] 09-11-2021 18:26-0400 Diastolic blood pressure 99 mm[Hg] No Physician [facility] [address] 09-11-2021 18:26-0400 Heart rate 136 /min No Physician [facility] [address] 09-11-2021 18:26-0400 SaO2% (BldA) [Mass fraction] 92 % No Physician [facility] [address] 09-11-2021 18:26-0400 Systolic blood pressure 136 mm[Hg] No Physician [facility] [address] 07-20-2021 01:01-0400 Diastolic blood pressure 78 mm[Hg] Gabriella Ohara MD Work Phone: [employer] 07-20-2021 01:01-0400 Heart rate 89 /min Gabriella Ohara MD Work Phone: [employer] 07-20-2021 01:01-0400 Respiratory rate 16 /min Gabriella Ohara MD Work Phone: [employer] 07-20-2021 01:01-0400 SaO2% (BldA) [Mass fraction] 100 % Gabriella Ohara MD Work Phone: [employer] 07-20-2021 01:01-0400 Systolic blood pressure 122 mm[Hg] Gabriella Ohara MD Work Phone: [employer] 07-19-2021 18:15-0400 Body height 172.7 cm Gabriella Ohara MD Work Phone: [employer] 07-19-2021 18:15-0400 Body mass index (BMI) [Ratio] 34.52 kg/m2 Gabriella Ohara MD Work Phone: [employer] 07-19-2021 18:15-0400 Body weight 102.97 kg Gabriella Ohara MD Work Phone: [employer] 07-19-2021 18:08-0400 Body temperature 99 [degF] [facility] MD [facility] En[facility] Encounter Date Encounter Type Care Provider Facility Start: 03-31-2023 ambulatory CARLEE GEORGE LUNA INSTRUMENT AND CONTROLS TECHNICIAN-[facility] Facility:B Start: 02-21-2023 End: 02-21-2023 ambulatory LIZ DOLLY INSTRUMENT AND CONTROLS TECHNICIAN-[employer] Facility:A Start: 02-20-[address] MARCO MOJICA MD Facil ity:A Start: 02-19-2023 ambulatory LIZ ALBERTO INSTRUMENT AND CONTROLS TECHNICIAN-[employer]IST[employer] Fa cility:A Start: 02-19-2023 End: 02-20-2023 ambulatory LIZ ALBERTO INSTRUMENT AND CONTROLS TECHNICIAN-[employer]IST[employer] Facility:B Start: 02-19-2023 End: 02-19-2023 Patient encounter procedure LIZ ALBERTO INSTRUMENT AND CONTROLS TECHNICIAN-DIPLOMA MEDICAL ASSISTANT [facility] Start: 02-15-2023 End: 02-15-2023 Emergency department patient visit DR MARCO MOJICA MD Facility:B Start: 02-15-2023 End: 02-15-2023 Emergency department patient visit AUGIE HANNAH MD [facility] Start: 05-30-2022 End: 05-31-2022 ambulatory CATY BYRNE [id number] Facility:[facility] Start: 03-07-2022 End: 03-07-[address] MARCO MOJICA MD [facility] Start: 02-06-2022 Telephone encounter Isi Martell APRN.DIPLOMA MEDICAL ASSISTANT Work Phone: [facility] Comment on above: Results Start: 2022 ambulatory FC-ISI Hutson cility:[facility] Start: 2022 End: 2022 Subsequent hospital visit by physician Provider [facility] Start: 2022 End: 2022 ambulatory MARCO MOJICA Facility:[facility] Start: 2022 End: 2022 Patient encounter procedure Isi Martell APRN.DIPLOMA MEDICAL ASSISTANT Work Phone: [facility] Comment on above: Dysuria (Primary Dx) ; Vaginal discharge Start: 09-12-2021 End: 09-12-2021 ambulatory NONE NONE Facility:[facility] Start: 09-11-2021 End: 09-11-2021 Emergency department patient visit NO PCP PHYSICIAN [facility] Start: 09-11-2021 End: 09-11-2021 Emergency department patient visit No Physician [facility] Start: 09-11-2021 End: 09-11-2021 Evaluation and management of inpatient No Physician [facility] Start: 07-19-2021 End: 07-20-2021 Emergency department patient visit GABRIELLA OHARA [facility] Start: 07-19-2021 End: 07-20-2021 Emergency department patient visit Gabriella Ohara MD Work Phone: [facility] Comment on above: Miscarriage (Primary Dx) Start: 07-19-2021 End: 07-20-2021 Evaluation and management of inpatient Gabriella Ohara MD Work Phone: [facility] Start: 07-19-2021 End: 07-19-2021 Subsequent hospital visit by physician Dat Morrow MD Work Phone: [facility] Comment on above: N92.5 Start: 07-17-2021 End: 07-17-2021 Subsequent hospital visit by physician Dat Morrow MD Work Phone: [facility] Comment on above: N92.5 Start: 03-13-2021 End: 03-14-2021 ambulatory NONE NONE Facility:[facility] Start: 03-08-2021 End: 03-08-2021 Patient encounter procedure GILLIAN VO [facility] Start: 04-02-2020 Patient encounter procedure Lencho Solis PA-C Work Phone: [facility] Start: 04-02-2020 Progress Note Lencho ElkinsC Work Phone[facility] Procedures Date Procedure Procedure Detail Performing Clinician Start: 2022 Bacteria identified in Urine by Culture Isi Martell INSTRUMENT AND CONTROLS TECHNICIAN.DIPLOMA MEDICAL ASSISTANT Work Phone: Start: 2022 BACTERIAL VAGINOSIS NAAT Isi Martell INSTRUMENT AND CONTROLS TECHNICIAN.DIPLOMA MEDICAL ASSISTANT Work Phone: Start: 2022 GONORRHEA/CHLAMYDIA NAAT Isi Martell INSTRUMENT AND CONTROLS TECHNICIAN.DIPLOMA MEDICAL ASSISTANT Work Phone: Start: 2022 TRICHOMONAS VAGINALIS NAAT Isi Martell INSTRUMENT AND CONTROLS TECHNICIAN.DIPLOMA MEDICAL ASSISTANT Work Phone: Start: 2022 Urine test visual color cmprsn meths Isi Martell INSTRUMENT AND CONTROLS TECHNICIAN.DIPLOMA MEDICAL ASSISTANT Work Phone: Start: 07-20-2021 Antibody screen GABRIELLA MURRIETA Comment on above: Performed By: #### 1 [id number] #### [facility] [address] [place] [address] Start: 07-19-2021 Antibody screen rbc each serum technique Lucian CULLEN Work Phone: Start: 07-19-2021 CBC W Auto Different ial panel - Blood Lucian CULLEN Work Phone: Start: 07-19-2021 Gonadotropin chorion ic quantitative Lucian CULLEN Work Phone: Start: 07-19-2021 Us uterus 1 4 wk transabdl 03/10 gestat Lucian CULLEN Work Phone: Start: 07-19-2021 Urine test visual color cmprsn meths Lucian CULLEN Work Phone: Start: 07-19-2021 Urnls dip stick/tabl et reagent auto microscopy Lucian CULLEN Work Phone: None (qualifier value) LIZ ALBERTO INSTRUMENT AND CONTROLS TECHNICIAN-DIPLOMA MEDICAL ASSISTANT Plan of Treatment Date Care Activity Detail Author Start: 11-08-2022 Influenza vaccination Influenza Vacc ine (#1) [facility] Start: 03-10-2022 Depression Assessment Depression Ass [facility] Start: 2022 End: 04-06-2022 Bacteria identified in Urine by Culture URINE CULTURE Microbiology Routine Dysuria Expected: 2022, Expires: 04/06/2022 [facility] Work Phone: Comment on above: Expected: 2022 , Expires: 04/06/2022 Start: 2022 End: 04-06-2022 Chlamydia trachomatis+Neisseria gonorrhoeae DNA [Presence] in Urine by PETER with probe detection GC/CHLAMYDIA AMPLIF, URINE Microbiology Routine Dysuria Vaginal discharge Expected: 2022, Expires: 04/06/2022 [facility] Work Phone: Comment on above: Expected: 2022 , Expires: 04/06/2022 Start: 11-08-2021 Influenza vaccination [facility] Start: 07-19-2021 Adolescent depressio n screening assessment Depression Screening [facility] Start: 07-19-2021 Hepatitis C screening Hepatitis C [facility] Start: 07-19-2021 HIV screening HIV Screening [facility] [address] Start: 07-19-2021 Screening for Chlamy edin trachomatis Gonorrhea/Chlamydia Screening [facility] [address] Start: 07-19-2021 Social Influencers o f Health Screening Social Influencers of Health Screening [facility] Start: 03-10-2021 DEPRESSION ASSESSMENT DEPRESSION ASS [facility] Start: 2018 PAP TESTING PAP TESTING [facility] Start: 2018 Screening for malign ant neoplasm of cervix Cervical Cancer Screening: Pap Smear [facility] [address] Start: 02-05-2016 DTaP,Tdap,and Td Vaccines (1 - Tdap) DTaP,Tdap,and Td Vaccines (1 - Tdap) [facility] [address] [facility] Start: 02-05-2016 Urine microalbumin profile [facility] Start: 2015 HEPATITIS C SCREENING HEPATITIS C [facility] Start: 2015 HIV SCREENING HIV SCREENING [facility] Start: 2011 PEDS TO ADULT TRANSI TION ANNUAL ASSESSMENT PEDS TO ADULT TRANSITION ANNUAL ASSESSMENT [facility] Start: 2009 Adult depression screening assessment DEPRESSION SCREENING [facility] Start: 2009 PEDS TO ADULT TRANSI TION INITIAL DISCUSSION PEDS TO ADULT TRANSITION INITIAL DISCUSSION [facility] Start: 02-05-2008 HPV VACCINE (1 - 2-d ose series) HPV VACCINE (1 - 2-dose series) [facility] Start: 02-05-2008 HPV Vaccines (1 - 2- dose series) HPV Vaccines (1 - 2-dose series) [facility] Start: 2007 MENINGOCOCCAL B: Consider based on risk (1 of 2 - Risk Bexsero 2-dose series) MENINGOCOCCAL B: Consider based on risk (1 of 2 - Risk Bexsero 2-dose series) [facility] Start: 2006 HPV Vaccine (1 - 2-d ose series) HPV Vaccine (1 - 2-dose series) [facility] Start: 2002 COVID-19 VACCINE (#1) COVID-19 VACCI NE (#1) [facility] Start: 2002 COVID-19 Vaccine (1) COVID-19 Vaccin e (1) [facility] Start: 1997 COVID-19 Vaccine (#1) COVID-19 Vacci ne (#1) [facility] Start: 1997 HEPATITIS B (1 of 3 - 3-dose series) HEPATITIS B (1 of 3 - 3-dose series) [facility] Start: 1997 Hepatitis B Vaccine (1 of 3 - 3-dose series) Hepatitis B Vaccine (1 of 3 - 3-dose series) [facility] BACTERIAL VAGINOSIS AMPLIFICATION BACTERIAL VAGINOSIS AMPLIFICATION Lab Routine Vaginal discharge Ordered: 2022 [facility] Work Phone: Comment on above: Ordered: 2022 HOMER / TRICHOMONA S AMPLIFICATION HOMER / TRICHOMONAS AMPLIFICATION Microbiology Routine Vaginal discharge Ordered: 2022 [facility] Work Phone: Comment on above: Ordered: 2022 Payers Date Payer Category Payer Unknown [id number] 2019 Unknown [employer] P[employer] [id number] 2019-Present [phone] [facility] [address] [place] [address] PPO [id number] 2016 Private Health Insurance [facility] [id number] 2016-Present [employer] [address] [place] [address] [id number] 2016 Private Health Insurance [id number] 1997 Unknown [id number] 1143 1997 Unknown [id number]. 1143 1997 Unknown [id number] 419 1997 Unknown [id number] 419 1997 Unknown [id number] 627 1997 Unknown [id number] 627 1997 Unknown [id number] 627 1997 Unknown [id number] 627 1997 Unknown [id number]. 627 1997 Unknown [id number] 627 1959 Private Health Insurance [id number] Unknown [id number] Social History Date Type Detail Facility Start: 04-20-2020 End: 02-15-2023 Never smoked tobacco (finding) [facility] Sex Assigned At [facility] Start: 06-22-2020 End: 07-19-2021 Tobacco smoking status NHIS Ex-smoker [facility] Start: 06-22-2020 End: 07-19-2021 Tobacco use and exposure Smokeless tobacco non-user [facility] Start: 1997 Sex Assigned At Not on file [facility] Start: 07-19-2021 Alcohol intake Lifetime non-d juan jose (finding) [facility] Start: 07-19-2021 History SDOH Alcohol Frequency 1 [facility] Start: 05-23-2020 End: 2022 Exposure to SARS-CoV-2 (event) Not sure [facility] History of tobacco use Current smoker [facility] Start: 2022 Alcohol intake Ex-drinker (finding) [facility] Start: 02-17-2020 End: 2022 History of Social function [facility] Start: 02-17-2020 End: 2022 Tobacco use panel [facility] National Score (1-100), lower number is lower risk Not on file [facility] Tobacco Nicotine Use: Va ping Product in Last 90 Days. Type: Electronic Cigarettes (Vaping). [facility] Functional Status Date Assessment Result Facility 02-15-2023 Functional Status Independent [facility] 02-15-2023 Functional Status Standard Safet y ID band on, Call device within reach, Wheels locked, Upper/Half-Length side-rails up, Bedside Cart Locked, Safety level maintained [facility] Mental Status Date Assessment Result Facility 02-15-2023 Mental Status Orientation Oriented x 4 [facility] 02-15-2023 Mental Status [facility] Clinical Notes 04-02-2020 to 03-05-2023 Note Date & Type Note Facility 03-05-2023 Note ORIGINAL PROCEDURE: Ultrasound and fluoroscopic guided percutaneous drainage catheter placement with sclerosis performed on 02/21/2023. INDICATION: 28y/o with a symptomatic splenic cyst. COMPARISON: CT Abdomen/Pelvis dated 02/15/2023. TECHNIQUE/FINDINGS: The procedure was performed in the VIR Suite following informed consent and a Time Out. Local anesthesia was obtained using 2% lidocaine. With the patient in a supine position, the left upper quadrant of the abdomen was prepped and draped in the usual sterile fashion. Ultrasound was used to localize the subcapsular splenic cyst involving the upper pole. Using ultrasound guidance, the collection was entered with a 15 cm, 5-F Centesis needle. Aspiration yielded approximately 60 mL of fluid. Contrast was then injected through the catheter to evaluate the splenic cyst. There is a mild degree of septation. There is no evidence of vascular communication from the initial catheter placement. There was near complete drainage of contrast from the catheter. Sclerosis of the splenic cyst was then performed by administering 40 mL of 95% ethanol. The sclerosant was allowed to dwell within the splenic cyst for approximately 2 hours. The patient was placed in various positions to allow adequate coverage of the sclerosant. The sclerosant was then completely aspirated from the cyst. The catheter was subsequently removed and the site cleaned and dressed in the usual fashion. There were no immediate complications. Total Fluoroscopy Time: 0.9 minutes. Reference Air Kerma (FIORELLA): 46 mGy. Intra-Service Time (Moderate Sedation): 30 minutes. Patient Monitoring: I personally supervised and directed an independent trained observer who assisted in monitoring the patient's level of consciousness and physiological status throughout the procedure. IMPRESSION: 1. Successful percutaneous 5-F catheter placement and drainage of a splenic cyst. 2. Sclerosis of the splenic cyst using 40 mL 95% Ethanol. 3. Removal of sclerosant and percutaneous drainage catheter. Interpreted by: Marco Mercedes MD Preliminary Report By: Marco Mercedes MD Electronically signed By Marco Mercedes MD Dictated Date: 03/05/2023 2:32:06 PM Prelim Date: 03/05/2023 2:56:21 PM Sign Date: 03/05/2023 2:56:21 PM Ordering Provider: [facility]) 02-15-2023 Hospital Discharge instructions Patient Education 02/15/2023 14:05:58 Abdominal Pain, Unknown Cause, (Female) Unknown Causes of Abdominal Pain (Female) The exact cause of your belly (abdominal) pain is not clear. This does not mean that this is something to worry about. Everyone likes to know the exact cause of the problem. But sometimes with belly pain, there is no clear-cut cause, and this could be a good thing. The good news is that your symptoms can be treated, and you will feel better. Your condition does not seem serious now. But sometimes the signs of a serious problem may take more time to appear. For this reason, it is important for you to watch for any new symptoms, problems, or worsening of your condition. Over the next few days, the abdominal pain may come and go. Or it may be constant. Other common symptoms can include nausea and vomiting. Sometimes it can be difficult to tell if you feel nauseous. You may just feel bad and not connect that feeling to nausea. Constipation, diarrhea, and a fever may go along with the pain. The pain may continue even if treated correctly over the following days. Depending on how things go, sometimes the cause can become clear and may need more or different treatment. Additional evaluations, medicines, or tests may also be needed. Home care Your healthcare provider may prescribe medicine for pain, symptoms, or an infection. Follow the healthcare provider's instructions for taking these medicines. General care Rest as much as you can until your next exam. No strenuous activities. Try to find positions that ease discomfort. A small pillow placed on the abdomen may help relieve pain. Something warm on your abdomen (such as a heating pad) may help, but be careful not to burn yourself. Diet Don t force yourself to eat, especially if having cramps, vomiting, or diarrhea. Water is important so you don't get dehydrated. Soup may also be good. Sports drinks may also help, especially if they are not too acidic. Don't drink sugary drinks as this can make things worse. Take liquids in small amounts. Don t guzzle them. Caffeine sometimes makes the pain and cramping worse. Don t take dairy products if you have vomiting or diarrhea. Don't eat large amounts at a time. Wait a few minutes between bites. Eat a diet low in fiber (called a low-residue diet). Foods allowed include refined breads, white rice, fruit and vegetable juices without pulp, tender meats. These foods will pass more easily through the intestine. Don t have whole-grain foods, whole fruits and vegetables, meats, seeds and nuts, fried or fatty foods, dairy, alcohol and spicy foods until your symptoms go away. Follow-up care Follow up with your healthcare provider, or as advised, if your pain does not begin to improve in the next 24 hours. Call 911 Call 911 if any of these occur: Trouble breathing Confusion Fainting or loss of consciousness Rapid heart rate Seizure When to seek medical advice Call your healthcare provider right away if any of these occur: Pain gets worse or moves to the right lower abdomen New or worsening vomiting or diarrhea Swelling of the abdomen Unable to pass stool for more than 3 days Fever of 100.4 F (38 C) or higher, or as directed by your healthcare provider. Blood in vomit or bowel movements (dark red or black color) Yellow color of eyes and skin (jaundice) Weakness, dizziness Chest, arm, back, neck, or jaw pain Unexpected vaginal bleeding or missed period Can't keep down liquids or water and you are getting dehydrated [id number] The [employer]. [address] [place] [address]. All rights reserved. This information is not intended as a substitute for professional medical care. Always follow your healthcare professional's instructions. Follow Up Care 02/15/2023 11:50:16 With:MARU REYES MD, Surgery Address: [address] [facility] [place] [address]- [phone] When:1-2 days [facility] 02-15-2023 Note Discharge Instructions Thank you for allowing [facility] to assist you with your healthcare needs. The following is important discharge information regarding your hospital visit. Diagnosis from Today's Visit Abdominal pain Splenic cyst What to Do Next Instructions from Your Care Team No qualifying data available. Post Acute Orders No qualifying data available. You Need to Schedule the Following Appointments Follow Up with MARU REYES MD, Surgery When Within 1-2 days Where: [address] [place] [address]- [phone] Allergies Contrast dye Medications Please ask your primary doctor or pharmacist before taking any other medication not listed, including over the counter drugs, herbal medications, vitamins and or supplements as they may interact with your home medications. What How Much When Why Instructions Last Dose New acetaminophen-hydrocodone ([place] 325- 5 mg oral tablet) 1 tab(s) by mouth Every 6 hours as needed for for pain Splenic cyst Duration: 3 Days Printed Prescription Unchanged .PharmacyCommunication (Pharmacy See ORDER COMMENTS) Unchanged dicyclomine (Bentyl 20 mg oral tablet) 1 tab(s) by mouth Four (4) times a day Duration: 10 Days Please take this list to your next doctor s visit. Bring all medications you take, including over the counter medications, herbals and other supplements with you to your doctor s visit. Patients and families are reminded to discard old lists and to update any records with all medication providers or retail pharmacies. Education Materials Unknown Causes of Abdominal Pain (Female) The exact cause of your belly (abdominal) pain is not clear. This does not mean that this is something to worry about. Everyone likes to know the exact cause of the problem. But sometimes with belly pain, there is no clear-cut cause, and this could be a good thing. The good news is that your symptoms can be treated, and you will feel better. Your condition does not seem serious now. But sometimes the signs of a serious problem may take more time to appear. For this reason, it is important for you to watch for any new symptoms, problems, or worsening of your condition. Over the next few days, the abdominal pain may come and go. Or it may be constant. Other common symptoms can include nausea and vomiting. Sometimes it can be difficult to tell if you feel nauseous. You may just feel bad and not connect that feeling to nausea. Constipation, diarrhea, and a fever may go along with the pain. The pain may continue even if treated correctly over the following days. Depending on how things go, sometimes the cause can become clear and may need more or different treatment. Additional evaluations, medicines, or tests may also be needed. Home care Your healthcare provider may prescribe medicine for pain, symptoms, or an infection. Follow the healthcare provider's instructions for taking these medicines. General care Rest as much as you can until your next exam. No strenuous activities. Try to find positions that ease discomfort. A small pillow placed on the abdomen may help relieve pain. Something warm on your abdomen (such as a heating pad) may help, but be careful not to burn yourself. Diet Don t force yourself to eat, especially if having cramps, vomiting, or diarrhea. Water is important so you don't get dehydrated. Soup may also be good. Sports drinks may also help, especially if they are not too acidic. Don't drink sugary drinks as this can make things worse. Take liquids in small amounts. Don t guzzle them. Caffeine sometimes makes the pain and cramping worse. Don t take dairy products if you have vomiting or diarrhea. Don't eat large amounts at a time. Wait a few minutes between bites. Eat a diet low in fiber (called a low-residue diet). Foods allowed include refined breads, white rice, fruit and vegetable juices without pulp, tender meats. These foods will pass more easily through the intestine. Don t have whole-grain foods, whole fruits and vegetables, meats, seeds and nuts, fried or fatty foods, dairy, alcohol and spicy foods until your symptoms go away. Follow-up care Follow up with your healthcare provider, or as advised, if your pain does not begin to improve in the next 24 hours. Call 911 Call 911 if any of these occur: Trouble breathing Confusion Fainting or loss of consciousness Rapid heart rate Seizure When to seek medical advice Call your healthcare provider right away if any of these occur: Pain gets worse or moves to the right lower abdomen New or worsening vomiting or diarrhea Swelling of the abdomen Unable to pass stool for more than 3 days Fever of 100.4 F (38 C) or higher, or as directed by your healthcare provider. Blood in vomit or bowel movements (dark red or black color) Yellow color of eyes and skin (jaundice) Weakness, dizziness Chest, arm, back, neck, or jaw pain Unexpected vaginal bleeding or missed period Can't keep down liquids or water and you are getting dehydrated [id number] The [facility]. [address] [place] [address], [place] [address]. All rights reserved. This information is not intended as a substitute for professional medical care. Always follow your healthcare professional's instructions. Additional Information VACCINATE! IT SAVES LIVES! Members of the community who have not yet received the COVID-19 vaccine and would like to receive it can visit one of [facility] vaccine clinics. There are many vaccine clinic locations within the [facility] [place] [facility]. For locations and available times, please visit [email or web address] [email or web address] It is important to note that some COVID mobile vaccine clinics are held outdoors and may be canceled in rainy or stormy conditions. To learn more about pediatric vaccinations (ages 5-11), we invite you to visit the [facility] webpage. [email or web address] To learn more about the COVID-19 vaccine, we invite you to visit the CDC website for a list of frequently asked questions. https://www.cdc.gov/coronavirus/ 2019-ncov/vaccines/faq.html [facility] Patient Portal Access Instructions: Stay connected with your healthcare team and access your personal medical information anytime with the [facility] Patient Portal. If you would like a full copy of your medical records please contact the [facility] Medical Records Department Friday through Friday between 8a.m. and 4:30p.m. Please follow the directions below to access the portal: 1.Access the email account you provided upon registration to the hospital.2.Look for an invitation email from [facility].3.Open the email and access the invitation link: Accept Invitation to [facility]4.Fill in the required feliz to create your account. Sign into www.[email or web address] with your username and password that you created in the above steps to stay up to date. You can then view a summary of results, a summary of your visits, and the ability to download your summaries to your computer or send the information securely to a physician. Remember that your healthcare information is confidential, so carefully consider who you will allow to register on the [facility] Patient Portal for access to your information. You can also access the [facility] Patient Portal on the [employer] sylvia. Simply click on Health Records under Health Data and then click on the [facility] logo. HOW TO SAFELY DISPOSE OF PRESCRIPTION MEDICATIONS Please use one of the following methods to safely dispose of your unused medications. 1.Use a drug disposal kit: the drug disposal pouch allows you to safely discard your old and unused drugs. Ask your nurse to give you one when you are discharged.2.Visit a local take-back location: Many local pharmacies and police departments have programs that collect old and unwanted prescription drugs. Call your local pharmacy or go to http://Mandy & Pandy.NileGuide/4P2Za7m to find one close to you.3.Make use of household items: Use cat litter or old coffee grounds to dispose medications if other options are not available. Mix your drugs with these household products, seal them in an airtight container and throw it into the garbage. Call [facility]: [phone] to be sure your drugs can be disposed of in this way. Some medicines may require a different approach.4.Never flush your medications down the toilet. IF YOU HAVE BEEN PRESCRIBED AN OPIOIDS FOR PAIN If you have been prescribed an opioid (such as hydrocodone, oxycodone or morphine), it is critical to understand the possible side effects and risks of opioid pain medications. Even when taken as directed, opioids can have several side effects including: Tolerance, meaning you might need to take more of a medication for the same pain relief. Nausea, vomiting and/or constipation. Sleepiness, dizziness, dry mouth, confusion, depression or itching. Physical dependence, meaning you have withdrawal symptoms when a medication is stopped ? this can develop within a few days. KNOW YOUR RESPONSIBILITIES It is important to know exactly how much and how often to take the opioid pain medications you are prescribed. Never take opioids in higher amounts or more often than prescribed. Do not combine opioids with alcohol or other drugs that cause drowsiness, such as benzodiazepines, also known as benzos, including diazepam and alprazolam, muscle relaxants or sleep aids. Never sell or share prescription opioids. This is illegal. Store opioids in a secure place and out of reach of others (including children, family, friends and visitors). The last page(s) of this document has been signed and retained as a CHART COPY Signatures Patient Education Materials Abdominal Pain, Unknown Cause, (Female) Medication Leaflets My discharge plan and instructions have been reviewed and explained to me and IKRISTAN TAYLOR L understand my current condition and have read and understand these discharge instructions. I have received a written copy of the plan/instructions. If I have questions, I am aware that I should contact my doctor. 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 Will proceed with abdominal CT with contrast, patient does have known history of hives after receiving IV contrast so we will pretreat with Benadryl and Solu-Medrol IV. Will give Zofran and Dilaudid for symptom control here in the emergency department. Will also check CMP, lipase, urine and follow-up on those results. MDM: Symptoms are improved here in the ED with Zofran and Dilaudid. CT of the abdomen and pelvis does show increase in size of splenic cyst from 4.5 to 6.5 cm, but otherwise is largely unremarkable. Presumably at this point her abdominal pain is due to increasing size of the splenic cyst but at this point she does not require admission for urgent intervention, she was agreeable to discharge home in stable condition with follow-up as an outpatient with general surgery to discuss elective measures to address this definitively. Given a short course of [place] for pain control over the weekend and referred to Dr. Reyes as an outpatient. [facility] 12-09-2023 Note ORIGINAL EXAMINATION: TWO XRAY VIEWS OF THE CHEST02/15/2023 1:18 pm COMPARISON: None HISTORY: ORDERING SYSTEM PROVIDED HISTORY: Reason for Exam: chest pain FINDINGS: The heart size is normal. There is no pulmonary consolidation. No pneumothorax or pleural effusion. No aggressive osseous lesions identified. IMPRESSION: No acute radiographic findings. Interpreted by: Lei Funes MD Preliminary Report By: Lei Funes MD Electronically signed By Lei Funes MD Dictated Date: 02/15/2023 1:26:04 PM Prelim Date: 02/15/2023 1:26:39 PM Sign Date: 02/15/2023 1:26:39 PM Ordering Provider: [facility] 02-15-2023 Note ORIGINAL EXAMINATION: CT OF THE ABDOMEN AND PELVIS WITH RIESRKBL95/9/2023 1:[address] ABDOMEN/PELVIS WITH CONTRAST TECHNIQUE: CT of the abdomen and pelvis was performed with the administration of intravenous contrast. Multiplanar reformatted images are provided for review. Automated exposure control, iterative reconstruction, and/or weight based adjustment of the mA/kV was utilized to reduce the radiation dose to as low as reasonably achievable. COMPARISON: 03/07/2022 MRI abdomen HISTORY: ORDERING SYSTEM PROVIDED HISTORY: Reason for Exam: Left upper pain FINDINGS: There are no lower thoracic findings. Liver: Normal size and density. No mass or biliary dilatation. Gallbladder: Physiologically distended and otherwise unremarkable in appearance. Common duct: Not dilated. Pancreas: No mass, inflammation, calcification or adjacent fluid collection. Stomach and duodenum: No mass or wall thickening. Spleen: Solid no mass and is normal in size. Cyst in the anterior spleen has increased in size, it measures 6.4 cm on today's study, it measured 4.6 cm on the prior study. Right Kidney: No hydronephrosis, solid mass or visible stone. Left Kidney: No hydronephrosis, solid mass or visible stone. Adrenal glands: Normal The large and small bowel loops are unremarkable in appearance. There is a normal appendix in the RIGHT lower quadrant. Retroperitoneum: No lymphadenopathy or hematoma. Aorta: No aneurysm. Urinary bladder: Normal Uterus and adnexal structures are unremarkable. Mesentery: No mass or inflammatory change. No ascites or free air. No abdominal wall masses or external hernias There are no suspicious bone lesions. IMPRESSION: Left-sided anterior splenic cyst which is increased in size compared to the prior study as above, this could relate to left upper quadrant pain. There is no visible acute process. Interpreted by: Domenico Lopes MD Preliminary Report By: Domenico Lopes MD Electronically signed By Domenico Lopes MD Dictated Date: 02/15/2023 1:29:53 PM Prelim Date: 02/15/2023 1:35:36 PM Sign Date: 02/15/2023 1:35:36 PM [facility] [id number] History and physical note Date of Service 02/15/2023 Chief Complaint c/o left abdominal pain since last night. 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 Explains that she does have chronic fullness and discomfort in the left upper quadrant, has been told that this was due to a cyst in the spleen, MRI of that performed in February of last year showed a 4.5 cm smoothly marginated simple appearing cyst, findings suggestive of benign cyst either congenital in nature or secondary to remote trauma. She explains that last night she woke up with sharp left-sided abdominal pain that made it difficult to sleep but she was able to get back to sleep, throughout the morning this left upper quadrant pain progressed and has gotten more severe than ever before which prompted her presentation the emergency department. She denies any recent illness, medication changes,intolerance of oral intake prior to last night, denies any urinary or bowel changes. Review of Systems Constitutional: Denies weight change, fever, chills Eyes: Denies vision changes Ears, Nose, Mouth & Throat: Denies headache, sneezing, hoarseness, sore throat Cardiovascular: Denies chest pain, orthopnea, palpitations Respiratory: Denies wheezing, cough, shortness of breath. Gastrointestinal: Denies change in appetite, vomiting, nausea, endorses diarrhea/constipation that is chronic in nature and unchanged Genitourinary: Denies frequency, urgency, dysuria Musculoskeletal: Denies lower extremity swelling bilaterally, joint pain, muscle pain Skin: Denies new rashes Neurological: denies numbness, tingling, weakness fainting Physical Exam Vitals and Measurements T: 37.0 C (Oral) HR: 100 RR: 16 BP: 169/116 SpO2: 97% WT: 101 kg Weight Dosing Weight: 101 kg (02/15/23) Constitutional - patient lying in bed, appears in pain, cooperative Head - atraumatic, normocephalic Eyes - extraocular movements grossly intact, no scleral icterus Respiratory - equal air entry bilaterally, clear to auscultation bilaterally, poor respiratory effort secondary to abdominal pain Cardiovascular - regular rate and rhythm without murmurs or rubs Abdomen - soft, tender in the LUQ without guarding or rigidity Musculoskeletal - no gross deformities, ROM intact Extremities - no pedal edema Neuro - A&Ox4 Lab Results 02/15 12:24 WBC: 7.0 Hgb: 15.3 Hct: 45.3 Platelet: 250 Neutrophil %: 64.0 Glucose Level: 101 Sodium Level: 134 L Potassium Level: 3.8 BUN: 7 Creatinine Lvl (s): 0.59 Imaging Results and Diagnostics CT Abd/Pelvis w/ IV Contrast Only Result Date: February 15, 2023 Verified By: SYMONE WALLACE, DOMENICO Juan CLINICAL STATEMENT: IMPRESSION: Left-sided anterior splenic cyst which is increased in size compared to theprior study as above, this could relate to left upper quadrant pain. Thereis no visible acute process. XR Chest 2 Views Result Date: February 15, 2023 Verified By: LEI FUNES MD CLINICAL STATEMENT: IMPRESSION: No acute radiographic findings. Assessment/Plan Abdominal Pain Splenic Cyst Abdominal pain of unclear etiology, potentially related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
[2024-01-03 08:11] LABS: PROGESTERONE 21.8 ng/mL (.)
== END | disposition home or self-care (01) ==
PROVIDERS: Referring Provider Advanced Practice Midwife; Visit Provider Advanced Practice Midwife
DX: E28.2 Polycystic ovarian syndrome (principal)
CPT/HCPCS: 36415; 84144

== ENCOUNTER → 2024-02-01 | Outpatient (CLI) | payer OTHER, SELFPAY ==
[2024-02-03 04:07] LABS: PROGESTERONE 17.6 ng/mL (.)
== END | disposition home or self-care (01) ==
LOC: LAB 10:32
PROVIDERS: Visit Provider Advanced Practice Midwife
DX: E28.2 Polycystic ovarian syndrome (principal)
CPT/HCPCS: 84144

== ENCOUNTER → 2024-03-01 | Outpatient (CLI) | payer OTHER, SELFPAY | END | disposition home or self-care (01) | PROVIDERS: Referring Provider Advanced Practice Midwife; Visit Provider Advanced Practice Midwife | DX: N97.0 Female infertility associated with anovulation (principal); E28.2 Polycystic ovarian syndrome | CPT/HCPCS: 36415; 84144 ==

== ENCOUNTER → 2024-07-06 | Outpatient (CLI) | payer OTHER, SELFPAY ==
[2024-07-06 12:32] LABS: hCG Titer Quant., Serum 36 mIU/mL (<9 non-preg)
== END | disposition home or self-care (01) ==
LOC: LAB 11:02
PROVIDERS: Referring Provider Advanced Practice Midwife; Visit Provider Advanced Practice Midwife
DX: N91.2 Amenorrhea, unspecified (principal)
CPT/HCPCS: 36415; 84702

== ENCOUNTER → 2024-07-08 | Outpatient (CLI) | payer OTHER, SELFPAY ==
[2024-07-08 13:43] LABS: hCG Titer Quant., Serum 83 mIU/mL (<9 non-preg)
== END | disposition home or self-care (01) ==
LOC: LAB 10:47
PROVIDERS: Referring Provider Advanced Practice Midwife; Visit Provider Advanced Practice Midwife
DX: N91.2 Amenorrhea, unspecified (principal)
CPT/HCPCS: 36415; 84702

== ENCOUNTER → 2024-07-19 | Outpatient (CLI) | payer OTHER, SELFPAY ==
--- NOTE | 2024-07-19 11:25 | US_ITS ---
PROCEDURE: TRANSVAGINAL W/PREG US 07/19/2024 REASON FOR EXAM: SPOTTING TECHNIQUE: Transvaginal. COMPARISON: None FINDINGS: Comments: LMP: May 29, 2024. Number of Gestational Sacs: 1 Gestational Sac Shape: Normal Number of Fetuses: 1 Heart Rate: Not detected. (Average) Yolk Sac: Present and unremarkable. Placenta: Presently not well-visualized Amniotic Fluid Volume: Subjectively normal for gestational age. Uterine Abnormalities: Maternal uterus is unremarkable. Ovaries / Adnexa: There is a corpus luteum cyst in the right ovary measuring 2.2 cm x 2.2 cm x 1.8 cm. DIMENSIONS: Parameter Measurement / EGA Gestational Sac: 1.18 cm/6 weeks and 0 days. Yolk Sac: 1.9 mm/ ESTIMATED GESTATIONAL AGE: By Ultrasound: 6 weeks and 0 days By LMP: 7 weeks and 2 days ESTIMATED DATE OF DELIVERY: By Ultrasound: March 14, 2025 By LMP: March 05, 2025 US/Transvaginal w/Preg US IMPRESSION: Intrauterine gestation with a mean gestational age of 6 weeks. No pole i s seen at this time. No detected cardiac activity. Corpus luteum cyst measuring 2.2 cm x 2.2 cm 1.8 cm seen in the right ovary. Reading Location: [id number]
[2024-07-19 17:55] LABS: hCG Titer Quant., Serum 8841 mIU/mL (<9 non-preg)
[2024-07-21 04:07] LABS: PROGESTERONE 7.7 ng/mL (.)
== END | disposition home or self-care (01) ==
PROVIDERS: Referring Provider Advanced Practice Midwife; Visit Provider Advanced Practice Midwife
DX: O26.859 Spotting complicating pregnancy, unspecified trimester (principal); O99.891 Other specified diseases and conditions complicating pregnancy; N96 Recurrent pregnancy loss; Z3A.00 Weeks of gestation of pregnancy not specified
CPT/HCPCS: 36415; 76817; 84144; 84702

== ENCOUNTER → 2024-07-21 | Outpatient (CLI) | payer OTHER, SELFPAY ==
[2024-07-21 19:14] LABS: hCG Titer Quant., Serum 15034 mIU/mL (<9 non-preg)
== END | disposition home or self-care (01) ==
PROVIDERS: Advanced Practice Midwife; Referring Provider Obstetrics & Gynecology; Visit Provider Obstetrics & Gynecology
DX: O26.859 Spotting complicating pregnancy, unspecified trimester (principal); Z3A.00 Weeks of gestation of pregnancy not specified
CPT/HCPCS: 36415; 84702

== ENCOUNTER 2024-07-25 11:12 | Emergency (ER) | payer OTHER, SELFPAY ==
[2024-07-25 11:13] VITALS: BP 134/101; PULSE 89; RESP 16; TEMP 36.3; O2SAT 99; BMI 35.0
--- NOTE | 2024-07-25 11:23 | US_ITS ---
EXAM: US , Transvaginal CLINICAL INDICATION: VAG BLEEDING TECHNIQUE: Real-time transvaginal obstetrical ultrasound of the maternal pelvis and a first trimester with image documentation. Transvaginal imaging was used for better evaluation of the fetus and adnexa. COMPARISON: No relevant prior studies available. FINDINGS: GESTATION: Gestational sac 2.1 cm. Yolk sac 0.3 cm. CRL 0.5 cm. heart tone 120 beats per minute. Gestational age 7 weeks and 0 day gestation. JYOTHI: JYOTHI 03/15/2025. PLACENTA/AMNIOTIC FLUID: Cannot be adequately evaluated due to the early gestational age. UTERUS/CERVIX: Possible cervical cardiac hemorrhage. No myometrial mass. The uterus measures 8.3 x 6.2 x 4.4 cm. OVARIES: 2.0 ovarian cysts on the right. No mass. The right ovary measures 3.9 x 3.5 x 2.8 cm. The left ovary measures 4.1 x 2.9 x 2.4 cm. FREE FLUID: No free fluid. US/Transvaginal w/Preg US IMPRESSION: Single live intrauterine . Reading Location: [id number]
--- NOTE | 2024-07-25 11:50 | ED.VIS.FEGU ---
HPI HPI - Female History of Present Illness Chief Complaint: Vag Bld, Preg Narrative Narrative: 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 Patient states that she is about 6 weeks and notes that around Mother's Day she started having some spotting with brown discharge states that she followed up with her OB at that point time and noted that they did an ultrasound that showed a intrauterine gestational sac. She states that she is on progesterone suppositories as she has a history of low progesterone and also was recently treated with Keflex for urinary tract infection. Patient states that last night she had some cramping and had some heavier bleeding therefore she called her SENIOR VICE PRESIDENT AND CHIEF INFORMATION OFFICER and they advised her to come here for further evaluation management. Patient states that she is not have any pain right now. [facility] Medical History Recurrent loss Trichomonal vaginitis Seasonal allergies Shingles Cyst of spleen Home Medications ?Medication ?Instructions ?Recorded ?Last Taken ?Type progesterone micronized 200 mg 400 mg (2 x 200 mg) vaginal ONCE 07/06/24 Unknown Rx capsule (Prometrium) #60 caps aspirin 81 mg tablet,delayed 81 mg PO QDAY 07/16/24 Unknown History release (Adult Low Dose Aspirin) multivit-min no.71-iron fum 28 cap PO 07/16/24 Unknown History mg-folate no.1 1 mg-dha 300 mg capsule (PNV-Waves) cephalexin 500 mg capsule 500 mg PO Q12H 5 days #10 caps 07/25/24 Unknown Rx Allergy/AdvReac Type Severity Reaction Status Date / Time Iodinated Contrast Media Allergy Mild Hives Verified 07/25/24 11:13 Family History Grandmother Throat cancer, Onset Age: 68 Maternal Grandfather Lung cancer Maternal, smoker-onset age unknown Father Diabetes Hypertension Myocardial infarction Surgical History [place] teeth removed Social History adopted: No household members: significant other housing: house current occupational status: employed 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 Quit Vaping 07/06/24 quit status: quit date established alcohol intake: current alcohol intake frequency: holidays/special occasions only details: socially - but not while substance use type: does not use, former substance user Date of last use: 4 years ago and marijuana well-balanced diet: daily or most days caffeine: Yes Type: carbonated beverages Number of servings: 1 eating out: rarely or never during the past year weight has: increased > 10 lbs what type of physical activity do you participate in: none whitney/yazidi: Yazidism seatbelt use: always do you feel safe at home: Yes additional social history: Significant other - Franck GROSS ROS ED ROS Narrative Constitutional: Denies fevers, chills, headaches malaise, dizziness Abdomen: Denies abdominal pain nausea vomit diarrhea : Complains of vaginal spotting as noted above denies painful urination, hematuria, polyuria Neurological: Denies numbness, weakness, tingling Musculoskeletal: Denies back pain Skin: Denies rashes or lesions EXAM Physical Exam Narrative Exam Narrative: General: Patient was lying bed rest comfortably did not appear to be acute distress Head: Atraumatic, normocephalic Eyes: PERRL bilaterally, EOMI bilateral, no conjunctival injection noted Neck: Soft, supple, trachea midline Abdomen: Soft, nondistended, nontender to palpation Extremities: +5/5 strength in the bilateral upper and lower extremities Neurological: Patient follow commands knew that she was at [facility] year is 2024 Skin: Warm, dry, intact no rashes lesions noted Const Vital Signs: 07/25/24 11:13 Temperature 97.3 F L Temperature Source Temporal Pulse Rate 89 Respiratory Rate 16 Blood Pressure 134/101 H Blood Pressure Mean 112 Pulse Ox 99 Oxygen Delivery Method Room Air MDM MDM MDM Narrative Medical decision making narrative: Patient is a 29-year-old female who presented to the emergency department chief complaint of vaginal spotting in the current setting of at 6 weeks. On the differential diagnosis includes but limited to threatened miscarriage, missed miscarriage, UTI. Once workup is obtained reviewed she will be reevaluated. Patient states that her hCG when it was checked on Friday was 15,034. Patient CBC reviewed and was largely unremarkable white blood count normal at 6.7, hemoglobin 14.9, platelet count of 203. Patient sodium is 136, potassium normal at 3.6, creatinine was 0.41. Patient's AST and ALT were 1722 respectively. Patient lipase normal at 17, hCG increased to 28,328. Patient urinalysis showed negative nitrates 25 leukocyte esterase 0-5 white cells with 2+ bacteria. She states that she completed the antibiotic on Friday she will be placed back on Keflex this was sent for culture. Patient's ultrasound was reviewed which showed a single live intrauterine with heartbeat of 120 bpm. I called and discussed the case with on-call SENIOR VICE PRESIDENT AND CHIEF INFORMATION OFFICER Dr. Vu who states the patient to follow-up early this coming week with them in the office. Discussed this plan with the patient and significant other bedside they are agreeable with this plan. She will be placed on pelvic rest and was advised to refrain from intercourse or anything in the vagina. She was encouraged to take antibiotics as prescribed and follow-up on urine culture as well. She is encouraged to return with worsening symptoms or concerns. They are agreeable to plan all question concerns answered she is discharged home in stable condition. Lab Data Labs: Laboratory Results - last 24 hr 07/25/24 07/25/24 11:28 11:29 WBC 6.7 RBC 5.09 Hgb 14.9 Hct 42.8 MCV 84.1 MCH 29.3 MCHC 34.8 RDW Std Deviation 36.9 RDW Coeff of Enma 12.2 Plt Count 203 MPV 11.9 Immature Gran % (Auto) 0.300 Neut % (Auto) 58.7 Lymph % (Auto) 35.0 [place] % (Auto) 5.1 Eos % (Auto) 0.6 Baso % (Auto) 0.3 Absolute Neuts (auto) 3.9 Absolute Lymphs (auto) 2.34 Nucleated RBC % 0 Sodium 136 Potassium 3.6 Chloride 104 Carbon Dioxide 20.4 L Anion Gap 12 BUN 5 Creatinine 0.41 L Estim Creat Clear Calc 260.82 H Est GFR (MDRD) Non-Af 138 BUN/Creatinine Ratio 12.3 Glucose 87 Calcium 9.3 Total Bilirubin 0.52 AST 17 ALT 22 Alkaline Phosphatase 73 Total Protein 7.2 Albumin 4.4 Globulin 2.8 Albumin/Globulin Ratio 1.5 Lipase 17 HCG, Quant 22764 H Serum , Qual POSITIVE Urine Color Yellow Urine Clarity Sl. Cloudy Urine pH 6.5 Ur Specific Banks 1.015 Urine Protein 30 H Urine Glucose (UA) Normal Urine Ketones Negative Urine Occult Blood 150 H Urine Nitrite Negative Urine Bilirubin Negative Urine Urobilinogen Normal Ur Leukocyte Esterase 25 H Urine RBC 0-5 SEEN Urine WBC 0-5 SEEN Ur Squamous Epith Cells 0-5 SEEN Urine Bacteria 2+ Urine Mucus 1+ Blood Type O POSITIVE Radiography Diagnostic Testing: Clinical Impression(s) from Imaging Studies Obstetrics Ultrasound 07/25/24 11:23 IMPRESSION: Single live intrauterine . Reading Location: [facility] Discharge Plan Triage Chief Complaint: Vag Bld, Preg ED Provider: Margarito Huston Dx/Rx/DC Orders Clinical Impression: Vaginal bleeding affecting early , Asymptomatic bacteriuria during Prescriptions: New cephalexin 500 mg capsule 500 mg PO Q12H 5 Days Qty: 10 0RF No Action PNV-Waves 28-1-300 mg capsule PO aspirin [Adult Low Dose Aspirin] 81 mg tablet,delayed release (DR/EC) 81 mg PO QDAY progesterone micronized [Prometrium] 200 mg capsule 400 mg vaginal ONCE Qty: 60 4RF Rx Instructions: Vaginal nightly until 16 weeks Primary Care Provider: Care Physician,No Primary Referrals: Care Physician,No Primary [Primary Care Provider] - Activity Restrictions/Additional Instructions: Follow-up with your SENIOR VICE PRESIDENT AND CHIEF INFORMATION OFFICER in the outpatient setting call them on Friday for a follow-up appointment and see if they want you to be seen tomorrow versus at your scheduled appointment on Friday. You are placed on pelvic rest no sex and do not insert anything in your vagina. Follow-up on urine culture with your SENIOR VICE PRESIDENT AND CHIEF INFORMATION OFFICER and take antibiotics as prescribed. Return with any other concerns Print Language: Grenadian Disposition Disposition: Home, Self Care
[2024-07-25 11:51] LABS: Absolute Lymphocyte Count 2.34 X10^3/uL (0.83-4.51); Absolute Neutrophil Count 3.9 X10^3/uL (2.0-7.7); Basophil# 0.02 X10^3/uL; Basophil% 0.3 % (0-1); Eosinophil# 0.04 X10^3/uL; Eosinophils% 0.6 % (0-5); Hematocrit 42.8 % (37-47); Hemoglobin 14.9 g/dL (12.0-15.0); Lymphocyte # 2.34 X10^3/ul (0.83-4.51); Mean Corp Hgb Conc 34.8 g/dL (32-36); Mean Corpuscular Hgb 29.3 pg (27.0-32.0); Mean Corpuscular Volume 84.1 fL (81-99); Mean Platelet Vol. 11.9 fl (6.2-12.0); Monocyte# 0.34 X10^3/uL; Monocyte% 5.1 % (0-10); NRBC Flagged by Analyzer 0 % (0-5); Neutrophil # 3.92 X10^3/uL (2.7-7.7); Neutrophil % 58.7 % (47-70); Platelet Count 203 K/mm3 (150-450); RBC Distribution Width CV 12.2 % (11.6-14.6); RBC Distribution Width SD 36.9 fl (35.1-43.9); Red Blood Count 5.09 M/mm3 (4.2-5.4); White Blood Count 6.7 K/mm3 (4.4-11.0)
[2024-07-25 11:55] LABS: Color, Urine Yellow (Yellow); Glucose, Dipstick Normal (Normal); Ketone-Dipstick Negative (Negative); Leukocyte Esterase-Dipstick 25 /ul (Negative); Nitrite-Dipstick Negative (Negative); Occult Blood-Urine 150 /ul (Negative); Protein-Dipstick 30 mg/dl (Negative); Specific Gravity, Urine 1.015 (1.002-1.030); Urine Bilirubin Dipstick Negative (Negative); Urine Clarity Sl. Cloudy (Clear); Urine Urobilinogen Normal (Normal); Urine pH 6.5 (5.0 - 8.0)
[2024-07-25 11:59] LABS: Internal QC Validated? YES +Cl - CLEAR BKGD
[2024-07-25 12:00] LABS: Pregnancy, Serum, hCG Quali. POSITIVE Negative
[2024-07-25 12:07] LABS: Red Blood Cells-Urine 0-5 SEEN /hpf (0-5); White Blood Cells 0-5 SEEN /hpf (0-5)
[2024-07-25 12:08] LABS: Bacteria 2+ /hpf (None Seen); Mucous, Urine 1+ /hpf (<or=2+); Squamous Epithelial Cells - UA 0-5 SEEN /hpf (5-10)
[2024-07-25 12:25] LABS: ALB/GLOB Ratio 1.5 RATIO (0.9-2.4); AST(SGOT) 17 U/L (<=31); Alanine Aminotransfer ALT/SGPT 22 U/L (<=34); Albumin, Serum 4.4 g/dL (3.5-5.0); Alkaline Phosphatase 73 U/L (35-104); Anion Gap 12 (5-15); BUN 5 mg/dL (4-19); BUN/Creat Ratio 12.3 RATIO (10-20); Calcium,Total 9.3 mg/dL (7.6-11.0); Carbon Dioxide 20.4 mmol/L (21.0-32.0); Chloride 104 mmol/L (98-108); Creatinine, Serum 0.41 mg/dL (0.70-1.20); EST Glomerular Filtration Rate 138 (>60); Estimated Creatinine Clearance 260.82 ml/min (50-250); Globulin 2.8 g/dL (2.2-4.2); Glucose 87 mg/dL (70-99); Lipase 17 U/L (13-75); Potassium 3.6 mmol/L (3.3-5.1); Protein, Total 7.2 g/dL (5.9-8.4); Sodium Level 136 mmol/L (133-145); Total Bilirubin 0.52 mg/dL (0.00-1.30)
[2024-07-25 12:51] LABS: hCG Titer Quant., Serum 28320 mIU/mL (<9 non-preg)
[2024-07-25 13:13] VITALS: BP 118/78; PULSE 80; RESP 15; O2SAT 98
[2024-07-25 13:26] VITALS: BP 118/78; PULSE 80; RESP 15; TEMP 36.4; O2SAT 98
== END 2024-07-25 13:35 | disposition home or self-care (01) ==
PROVIDERS: Emergency Provider Emergency Medicine; Referring Provider Emergency Medicine; Visit Provider Emergency Medicine
DX: O20.9 Hemorrhage in early pregnancy, unspecified (principal); Z3A.01 Less than 8 weeks gestation of pregnancy; Z87.891 Personal history of nicotine dependence
CPT/HCPCS: 76817; 80053; 81001; 83690; 84702; 84703; 85025; 86900; 86901; 87086; 87088; 99282; A4216

== ENCOUNTER → 2024-07-27 | Outpatient (CLI) | payer OTHER, SELFPAY ==
[2024-07-28 21:08] LABS: Chlamydia By Nucleic Acid AMP Negative (Negative); Gonococcus By Nucleic Acid AMP Negative (Negative)
== END | disposition home or self-care (01) ==
LOC: LABSPEC 11:48
PROVIDERS: Referring Provider Obstetrics & Gynecology; Visit Provider Obstetrics & Gynecology
DX: O09.90 Supervision of high risk pregnancy, unspecified, unspecified trimester (principal); O26.899 Other specified pregnancy related conditions, unspecified trimester; O99.891 Other specified diseases and conditions complicating pregnancy; N89.8 Other specified noninflammatory disorders of vagina; Z3A.00 Weeks of gestation of pregnancy not specified
CPT/HCPCS: 87070; 87205; 87491; 87591

== ENCOUNTER → 2024-08-03 | Outpatient (CLI) | payer OTHER, SELFPAY ==
[2024-08-03 17:26] LABS: Amphetamine Urine NEGATIVE (<1000 ng/mL); Barbiturate Urine NEGATIVE (< 200 ng/mL); Benzodiazepine Urine NEGATIVE (< 200 ng/mL); Buprenorphine Urine NEGATIVE (< 200 ng/mL); Cocaine Urine NEGATIVE (< 300 ng/mL); Fentanyl, Urine NEGATIVE; Methadone Urine NEGATIVE (< 300 ng/mL); Opiates Urine NEGATIVE (< 300 ng/mL); Oxycodone, Urine NEGATIVE (< 100 ng/mL); PCP Urine NEGATIVE (< 25 ng/mL); THC Urine NEGATIVE (< 50 ng/mL)
== END | disposition home or self-care (01) ==
LOC: LABSPEC 16:18
PROVIDERS: Referring Provider Obstetrics & Gynecology; Visit Provider Obstetrics & Gynecology
DX: O09.90 Supervision of high risk pregnancy, unspecified, unspecified trimester (principal); Z3A.00 Weeks of gestation of pregnancy not specified
CPT/HCPCS: 80307

== ENCOUNTER → 2024-08-27 | Outpatient (CLI) | payer OTHER, SELFPAY ==
[2024-08-27 17:13] LABS: Absolute Lymphocyte Count 1.75 X10^3/uL (0.83-4.51); Absolute Neutrophil Count 4.8 X10^3/uL (2.0-7.7); Basophil# 0.02 X10^3/uL; Basophil% 0.3 % (0-1); Eosinophil# 0.04 X10^3/uL; Eosinophils% 0.6 % (0-5); Hematocrit 41.7 % (37-47); Hemoglobin 14.2 g/dL (12.0-15.0); Lymphocyte # 1.75 X10^3/ul (0.83-4.51); Mean Corp Hgb Conc 34.1 g/dL (32-36); Mean Corpuscular Volume 85.1 fL (81-99); Mean Platelet Vol. 12.4 fl (6.2-12.0); Monocyte# 0.36 X10^3/uL; Monocyte% 5.1 % (0-10); NRBC Flagged by Analyzer 0 % (0-5); Neutrophil # 4.82 X10^3/uL (2.7-7.7); Neutrophil % 68.7 % (47-70); Platelet Count 184 K/mm3 (150-450); RBC Distribution Width CV 12.1 % (11.6-14.6); RBC Distribution Width SD 36.9 fl (35.1-43.9)
[2024-08-27 17:56] LABS: HIV Nonreactive (Nonreactive); Hepatitis B Surface Antigen Nonreactive (Nonreactive); Hepatitis C Antibody Nonreactive (Nonreactive); Rubella IgG REAC (Nonreactive); Syphilis Antibodies Nonreactive (Nonreactive)
--- OUTSIDE RECORDS SUMMARY | 2024-08-27 18:50 | XMS RPT_ITS | CCD ---
Author Organization [facility]iniSyaz Care Team Providers Care Mission Analyst Name Role Phone GALINA WALLACE, DR LARA Primary Care Physician Galina WALLACE, Marco Espino Primary Care Provider Physician, No Pcp Primary Care Provider Unavaila GABRIELLA Andino Attending Unavailable PHYSICIAN, NO PCP Primary Care Unavailable PHYSICIAN, NO PCP Primary Care Unavailable NONE, NONE Primary Care Unavailable GRULLON DO, FOSTER K Admitting Unavailable GRULLON DO, FOSTER K Attending Unavailable TOM [phone], NASEEM Zapata Consulting U hina AGUERO CULLET WASHER, SHONA Consulting Unavailable NONE, NONE Consulting Unavailable NONE, NONE Primary Care Unavailable YOANA IYER MD Admitting Unavailable YOANA IYER MD Attending Unavailable CORINA REYES, YA PENNINGTON Consulting Unavaila ble AHDOOT [phone], OSBALDO Consulting Sarah vailable HESTER [phone], JOHANNE Alvarez Consulting Unavai lable NONE, NONE Consulting Unavailable Galina WALLACE, Marco Espino Primary Care Provider MARCO MOJICA Primary Care Unavailable EMMANUEL MARTELL Attending Unavailabner GORDON MD, ADAM Primary Care Physician CATY WALLACE~[phone], CATY BONILLA V Admitting Unavailable NONE, NONE Consulting Unavailable NONE, NONE Primary Care Unavailable CATY WALLACE~[phone], CATY BONILLA V Attending Unavailable NONE, NONE Consulting Unavailable SOWMYA WALLACE, WOODROW Consulting Unavailable SOWMYA WALLACE, WOODROW Consulting Unavailable CATY WALLACE, CHAD Kaufman Consulting Unavailable CATY WALLACE, CHAD Kaufman Consulting Unavailable GALINA WALLACE, DR LARA Primary Care Unavailable MARU REYES MD Attending Unavailable DOLLY BLUE-IOANA, LIZ Attending Unavailabner MOJICA MD, DR ALRA Primary Care Unavailable GALINA WALLACE, DR LARA Primary Care Unavailable AUGIE HANNAH MD Attending Unavailable LUNA VOSS, CARLEE GEORGE Attending U hina MOJICA MD, DR LARA Primary Care Unavailable DOLLY VOSS, LIZ Attending Yenni MOJICA MD, DR LARA Primary Care Unavailable DOLLY VOSS, LIZ Attending Unavailabner MOJICA MD, DR LARA Primary Care Unavailable JACKI Dotson Attending Provider [phone] Unavailable Primary Care Provider UnavailMARCO Butler Primary Care Unavailable MEGHNA GARCIA Attending Unavailable Care Physician, No Primary Primary Care Provider Unavailable Elmo RIZO, Aaliyah Attending Provider [phone] Aaliyah Borrego CNM Referring Provider Care Physician, No Primary Referring Provider Un available Tena Soliman DO, Dr. Ortiz Attending Provider Tena Soliman DO, Dr. Ortiz Referring Provider Betzaida BLACK, Dr. Pimentel Referring Provider Betzaida BLACK, Dr. Pimentel Emergency Provider Betzaida BLACK, Dr. Pimentel Attending Provider Felicia Kaur CNM Attending Provider Margarito Huston Referring Unavailable Margarito Huston Attending Unavailable Care Physician, No Primary Primary Care Unava ilable Care Physician, No Primary Primary Care Unava ilable Aaliyah Borrego Attending Unavailable Aaliyah Borrego Referring Unavailable Velde, Diana Madsen Referring Unavailabl e Velde, Diana Madsen Attending Unavailabl e Care Physician, No Primary Primary Care Unava ilable Aaliyah Borrego Referring Unavailable Care Physician, No Primary Primary Care Unava ilable Aaliyah Borrego Attending Unavailable Aaliyah Borrego Referring Unavailable Care Physician, No Primary Primary Care Unava ilable Aaliyah Borrego Attending Unavailable Marco Mojica Primary Care Unavailable Aaliyah Borrego Attending Unavailable Aaliyah Borrego Referring Unavailable Velde, Diana Madsen Referring Unavailabl e Velde, Diana Madsen Attending Unavailabl e Care Physician, No Primary Primary Care Unava ilable Marco Mojica Primary Care Unavailable Aaliyah Borrego Attending Unavailable Aaliyah Borrego Referring Unavailable Velde, Diana Madsen Attending Unavailabl e Velde, Diana Madsen Referring Unavailabl e Care Physician, No Primary Primary Care Unava ilable Care Physician, No Primary Referring Unava ilable Care Physician, No Primary Primary Care Unava ilable Aaliyah Borrego Attending Unavailable Care Physician, No Primary Referring Unava ilable Care Physician, No Primary Primary Care Unava ilable Aaliyah Borrego Attending Unavailable Care Physician, No Primary Primary Care Unava ilable Aaliyah Borrego Attending Unavailable Aaliyah Borrego Referring Unavailable Care Physician, No Primary Primary Care Unava ilable Aaliyah Borrego Attending Unavailable Galina, Marco Primary Care Unavailable Elmo, Aaliyah Referring Unavailable Elmo, Aaliyah Attending Unavailable Care Physician, No Primary Referring Unava ilable Aaliyah Borrego Attending Unavailable Care Physician, No Primary Primary Care Unava ilable Galina, Marco Referring Unavailable Galina, Marco Primary Care Unavailable Elmo, Aaliyah Attending Unavailable Care Physician, No Primary Referring Unava ilable Diana Soliman Attending Unavailabl e Care Physician, No Primary Primary Care Unava ilable Care Physician, No Primary Referring Unava ilable Diana Soliman Attending Unavailabl e Care Physician, No Primary Primary Care Unava ilable Care Physician, No Primary Primary Care Unava ilable Felicia Kaur Attending Unavailable Care Physician, No Primary Referring Unava ilable Aaliyah Borrego Referring Unavailable Care Physician, No Primary Primary Care Unava ilable Aaliyah Borrego Attending Unavailable Allergies Allergy Classification Reported Allergen(s) Allergy Type Date of Onset Reaction(s) Facility (5 sources) Contrast media; Translations: [iodinated radiocontrast agents] Drug allergy Dizziness (finding), Weal (disorder) [facility] (9 sources) Gadolinium-Contain ing Contrast Media; Translations: [GADOLINIUM-CONTAI PATTIE CONTRAST MEDIA] Drug Allergy 1 [facility] (3 sources) Iodinated Contrast Media; Translations: [IODINATED CONTRAST MEDIA] Drug Allergy 2 [facility] (1 source) Iodine (And Iodine Containting Drugs) Drug allergy (disorder) [facility] Rep[facility] (12 sources) Triiodobenzoic Acids Allergy to substance 4 [facility] (1 source) Gadolinium-Contain ing Contrast Media Drug Allergy 1 [facility] Work Phone: (1 source) Iodinated Contrast Media Drug allergy (disorder) 5 [facility] Repository Medications Current Medications Medication Drug Class(es) Dates Sig (Normalized) Sig (Original) [id number] 200 actuat albuterol 0.09 mg/actuat metered dose inhaler (1 source) beta2-Adrenergic Agonist Start: 04-12-2024 End: 04-12-2025 take 2 puff(s) by inhalation every six hours for wheezing albuterol 90 mcg/actuation inhaler Indications: SOB (shortness of breath) Inhale 2 puffs every 6 hours if needed for wheezing. 18 g 04/12/2024 04/12/2025 Active amoxicillin 875 mg / clavulanate 125 mg oral tablet (1 source) Penicillin-class Antibacterial Start: 04-12-2024 End: 04-19-2024 take 1 tablet by mouth twice daily amoxicillin-pot clavulanate (Augmentin) 875-125 mg tablet Indications: Non-recurrent acute suppurative otitis media of both ears without spontaneous rupture of tympanic membranes Take 1 tablet (875 mg) by mouth 2 times a day for 7 days. 14 tablet 04/12/2024 04/19/2024 Active aspirin 81 mg delayed release oral tablet (11 sources) Platelet Aggregation Inhibitor, Nonsteroidal Anti-inflammatory Drug Start: 07-16-2024 Aspirin (Adult Low Dose Aspirin) 81 mg tablet,delayed release (DR/EC) Active 81 mg PO daily July 16, 2024 12:00am benzonatate 200 mg oral capsule (1 source) Non-narcotic Antitussive Start: 04-12-2024 End: 04-22-2024 take 1 capsule by mouth three times daily as needed for cough benzonatate (Tessalon) 200 mg capsule Indications: Acute cough Take 1 capsule (200 mg) by mouth 3 times a day as needed for cough for up to 10 days. Do not crush or chew. 30 capsule 04/12/2024 04/22/2024 Active cephalexin 500 mg oral capsule (10 sources) Cephalosporin Antibacterial Start: 07-25-2024 take 1 capsule by mouth every twelve hours Cephalexin 500 mg capsule Active 500 mg PO Q12H 10 5 July 25, 2024 12:00am cetirizine hydrochloride 10 mg oral tablet (1 source) Histamine-1 Receptor Antagonist Start: 04-12-2024 End: 05-12-2024 take 1 tablet by mouth once daily cetirizine (ZyrTEC) 10 mg tablet Indications: PND (post-nasal drip) Take 1 tablet (10 mg) by mouth once daily. 30 tablet 04/12/2024 05/12/2024 Active doxycycline hyclate 100 mg oral capsule (3 sources) Tetracycline-class Drug Start: 2022 End: 02-11-2022 take 1 capsule by mouth twice daily doxycycline hyclate (VIBRAMYCIN) 100 mg capsule Indications: Vaginal discharge Take 1 capsule by mouth twice daily for 7 days. 14 capsule 0 2022 02/11/2022 Active Comment on above: Take 1 capsule by [facility] twice daily for 7 days. fluticasone propionate 0.05 mg/actuat metered dose nasal spray (1 source) Corticosteroid Start: 04-12-2024 End: 05-12-2024 take 1 spray(s) nasal route once daily fluticasone (Flonase) 50 mcg/actuation nasal spray Indications: PND (post-nasal drip) Administer 1 spray into each nostril once daily. Shake gently. Before first use, prime pump. After use, clean tip and replace cap. 16 g 04/12/2024 05/12/2024 Active metroNIDAZOLE 500 mg oral tablet (2 sources) Nitroimidazole Antimicrobial Start: 02-06-2022 End: 02-13-2022 take 1 tablet by mouth twice daily metroNIDAZOLE (FLAGYL) 500 mg tablet Indications: Bacterial vaginosis Take 1 tablet by mouth twice daily for 7 days. 14 tablet 0 02/06/2022 02/13/2022 Active Comment on above: Take 1 tablet by [facility] twice daily for 7 days. Mv-Mins 07-Gxoh-Ytnvd No.1-Dha (Pnv-Arapaho) 28-1-300 mg capsule (11 sources) Start: 07-16-2024 Mv-Mins 22-Wfan-Fedpg No.1-Dha (Pnv-Arapaho) 28-1-300 mg capsule Active NMA PO July 16, 2024 12:00am ondansetron 4 mg disintegrating oral tablet (8 sources) Serotonin-3 Receptor Antagonist Start: 07-27-2024 take 1 tablet by mouth every six hours as needed for nausea and vomiting Ondansetron 4 mg tablet,disintegrat ing Active 4 mg PO EVERY 6 HOURS as needed for nausea and vomiting July 27, 2024 12:00am Pharmacy See ORDER COMMENTS (3 sources) Start: 05-19-2016 Pharmacy See ORDER COMMENTS Start Date: 05/19/16 Status: Ordered progesterone 200 mg oral capsule (20 sources) Progesterone Start: 07-06-2024 End: 07-06-2024 Progesterone Micronized (Prometrium) 200 mg capsule Active 400 mg VAGINAL ONCE 60 July 06, 2024 11:31am Vaginal nightly until 16 weeks progesterone (EN DOMETRIN) 100 mg vaginal insert Insert 100 mg into the vagina 2 (two) times a day. 0 Active Completed/Discontinued Medications Medication Drug Class(es) Dates Sig (Normalized) Sig (Original) acetaminophen 325 mg / HYDROcodone bitartrate 5 mg oral tablet (3 sources) Opioid Agonist Start: 02-15-2023 End: 02-18-2023 [...] Date: 05/19/16 Stop Date: 05/29/16 Status: Ordered letrozole 2.5 mg oral tablet (20 sources) Aromatase Inhibitor Start: 02-12-2024 End: 02-17-2024 Letrozole 2.5 mg tablet Discontinued 7.5 mg PO DAILY 15 February 12, 2024 9:03am February 16, 2024 1:00am February 17, 2024 1:08am begin between days 3 and 7 of menstrual cycle Start: 01-12-2024 End: 01-17-2024 Letrozole 2.5 mg tablet Disc ontinued 7.5 mg PO DAILY 15 January 12, 2024 1:00am January 16, 2024 1:00am January 17, 2024 1:15am begin between days 3 and 7 of menstrual cycle Start: 12-16-2023 End: 12-21-2023 Letrozole 2.5 mg tablet Disc ontinued 7.5 mg PO DAILY 15 5 December 16, 2023 8:59am December 20, 2023 12:00am December 21, 2023 12:09am take days 3 and 7 of menstrual cycle Start: 12-08-2023 End: 12-13-2023 Letrozole 2.5 mg tablet Disc ontinued 2.5 mg PO DAILY 5 December 08, 2023 12:00am December 12, 2023 12:00am December 13, 2023 12:13am begin between days 3 and 7 of menstrual cycle Start: 11-03-2023 End: 11-08-2023 Letrozole 2.5 mg tablet Disc ontinued 5 mg PO DAILY 10 November 03, 2023 12:00am November 07, 2023 12:00am November 08, 2023 12:09am begin between days 2 and 5 of mentrual cycle Problems Active Problems Problem Classification Problem Date Documented Date Episodic/Chronic Abdominal pain (3 sources) Abdominal pain; Translations: [Right lower quadrant pain] Onset: 07-15-2024 02-17-2023 Episodic Anxiety disorders (20 sources) Anxiety; Translations: [Anxiety disorder, unspecified] Onset: 08-16-2024 02-19-2023 Chronic Conduction disorders (20 sources) [id number]-Martw pattern; Translations: [Pre-excitation syndrome] Onset: 08-16-2024 07-16-2024 Chronic Diverticulosis and diverticulitis (2 sources) Diverticular disease 02-19-2023 Chronic Essential hypertension (2 sources) Essential (primary) hypertension; Translations: [ESSENTIAL PRIMARY HYPERTENSION] Onset: 09-12-2021 Chronic Female infertility (1 source) Female infertility associated with anovulation; Translations: [Female infertility associated with anovulation] Onset: 03-25-2024 Chronic Genitourinary congenital anomalies (20 sources) Bicornuate uterus; 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] Onset: 08-16-2024 10-20-2023 Chronic Genitourinary symptoms and ill-defined conditions (2 sources) Dysuria; Translations: [Dysuria] Onset: 07-27-2024 Episodic Hemorrhage during ; abruptio placenta; placenta previa (19 sources) Vaginal bleeding complicating early ; Translations: [Hemorrhage in early , unspecified] Onset: 07-27-2024 07-25-2024 Episodic Inflammatory diseases of female pelvic organs (1 source) Bacterial vaginosis; Translations: [Acute vaginitis] Episodic Malaise and fatigue (1 source) Fatigue; Translations: [Other fatigue] 04-12-2024 Episodic Menstrual disorders (1 source) Amenorrhea, unspecified; Translations: [Amenorrhea, unspecified] Onset: 07-13-2024 Chronic Mood disorders (2 sources) Depressive disorder 02-19-2023 Chronic Other circulatory disease (1 source) Other specified symptoms and signs involving the circulatory and respiratory systems; Translations: [Other specified symptoms and signs involving the circulatory and respiratory systems] Onset: 07-16-2024 Episodic Other complications of (20 sources) Maternal obesity complicating , childbirth and the puerperium, antepartum; Translations: [Obesity complicating , unspecified trimester] 07-16-2024 Chronic Comment on above: HGBA1c Other complications of (1 source) Obesity complicating , unspecified trimester; Translations: [Obesity complicating , unspecified trimester] Onset: 08-16-2024 Chronic Other complications of (20 sources) Spotting per vagina in ; Translations: [Spotting complicating , unspecified trimester] 07-19-2024 Episodic Comment on above: HCGx2, formal [place] Other complications of (20 sources) High risk ; Translations: [Supervision of high risk , unspecified, unspecified trimester] 07-16-2024 Episodic Comment on above: , JYOTHI 03/05/25, FOB Franck Other complications of (18 sources) Asymptomatic bacteriuria in ; Translations: [Asymptomatic bacteriuria during ] 07-25-2024 Episodic Other complications of (1 source) Spotting complicating , unspecified trimester; Translations: [Spotting complicating , unspecified trimester] Onset: 08-16-2024 Episodic Other complications of (1 source) Supervision of high risk , unspecified, unspecified trimester; Translations: [Supervision of high risk , unspecified, unspecified trimester] Onset: 08-16-2024 Episodic Other ear and sense organ disorders (1 source) Impacted cerumen of bilateral ears; Translations: [Impacted cerumen, bilateral] 04-12-2024 Episodic Other endocrine disorders (20 sources) Polycystic ovary syndrome; Translations: [Polycystic ovarian syndrome] 07-02-2023 Chronic Comment on above: per OAR Letro zole 2.5mg 12/07 per [facility]AR Letro zole 2.5mg 12/07. conceived naturally Other endocrine disorders (2 sources) Polycystic ovarian syndrome; Translations: [Polycystic ovaries] Onset: 08-16-2024 07-02-2023 Chronic Other female genital disorders (1 source) Abnormal uterine and vaginal bleeding, unspecified; Translations: [Abnormal uterine and vaginal bleeding, unspecified] Onset: 07-29-2024 Chronic Other female genital disorders (20 sources) Vaginal discharge; Translations: [Other specified noninflammatory disorders of vagina] Episodic Other female genital disorders (2 sources) Other specified noninflammatory disorders of vagina; Translations: [Leukorrhea, not specified as infective] Onset: 08-16-2024 07-02-2023 Episodic Other female genital disorders (20 sources) Recurrent loss; Translations: [History of recurrent miscarriages] Onset: 08-16-2024 07-16-2024 Episodic Comment on above: 2020 chemical, week miscarriage, APL neg in 2023 Other female genital disorders (11 sources) Recurrent miscarriage; 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] 07-16-2024 Episodic Comment on above: nl APL panel Other lower respiratory disease (1 source) Cough; Translations: [Acute cough] 04-12-2024 Episodic Other lower respiratory disease (1 source) Dyspnea; Translations: [Shortness of breath] 04-12-2024 Episodic Other and delivery including normal (20 sources) Early stage of ; Translations: [Encounter for supervision of normal , unspecified, unspecified trimester] Onset: 08-16-2024 07-06-2024 Episodic Comment on above: discussed NIPT & Car rier testing-undecided Other screening for suspected conditions (not mental disorders or infectious disease) (2 sources) Possible ; Translations: [Encounter for test, result unknown] Onset: 07-16-2024 04-12-2024 Episodic Other upper respiratory infections (1 source) Posterior rhinorrhea; Translations: [Postnasal drip] 04-12-2024 Episodic Otitis media and related conditions (1 source) Acute suppurative otitis media without spontaneous rupture of ear drum; Translations: [Acute suppurative otitis media without spontaneous rupture of ear drum, bilateral] 04-12-2024 Episodic Ovarian cyst (20 sources) Hemorrhagic cyst of ovary; Translations: [Unspecified ovarian cyst, unspecified side] Onset: 08-16-2024 08-06-2023 Episodic Residual codes; unclassified (1 source) Other specified personal risk factors, not elsewhere classified; Translations: [Other specified personal history presenting hazards to health] 04-12-2024 Episodic Residual codes; unclassified (1 source) Less than 8 weeks gestation of ; Translations: [Less than 8 weeks gestation of (HCC)] Onset: 07-15-2024 Episodic Residual codes; unclassified (1 source) 10 weeks gestation of ; Translations: [10 weeks gestation of ] Onset: 08-16-2024 Episodic Screening and history of mental health and substance abuse codes (20 sources) History of clinical finding in subject; Translations: [Personal history of nicotine dependence] Onset: 08-16-2024 07-16-2024 Episodic Comment on above: Quit 07/06/24 Quit 2021 Spontaneous (1 source) Miscarriage; Translations: [Complete or unspecified spontaneous without complication] Episodic Sprains and strains (3 sources) Strain of muscle, fascia and tendon of lower back, initial encounter; Translations: [STRAIN MUSC FASC TENDON LW BACK INT] Onset: 05-30-2022 Episodic Substance-related disorders (20 sources) History of clinical finding in subject; Translations: [History of marijuana use] 07-16-2024 Chronic Comment on above: last used 4 yrs ago, discussed tox screen initial & random last used 4 yrs ago, discussed tox screen initial & random Neg @ [facility] Unclassified (1 source) Patient encounter status 02-20-2023 Unclassified (1 source) Acute cough 04-12-2024 Unclassified (1 source) Cannabis use, unspecified, in remission; Translations: [Cannabis use, unspecified, in remission] Onset: 08-16-2024 Unclassified (1 source) Other specified diseases and conditions complicating ; Translations: [Other specified diseases and conditions complicating ] Onset: 07-27-2024 Viral infection (1 source) Disease caused by 2019-nCoV; Translations: [COVID-19] 04-12-2024 Episodic Past or Other Problems Problem Classification Problem Date Documented Da te Episodic/Chronic Cardiac dysrhythmias (2 sources) Palpitations 02-19-2023 Episodic Nonspecific chest pain (2 sources) Chest pain, unspecified; Translations: [CHEST PAIN UNSPECIFIED] Onset: 03-13-2021 Episodic Other hematologic conditions (3 sources) Splenic cyst; Translations: [Cyst of spleen] Onset: 02-15-2023 Episodic Results Test Name Value Interpretation Reference Range Facil ity Laboratory - Chemistry and C hemistry - challengeOrdered By: Aaliyah Borrego on 08-16-2024 Glucose Ql (U) Negative [facility] Laboratory - UrinalysisOrder ed By: Aaliyah Borrego on 08-16-2024 Protein Ql (U) Negative [facility] Associate Sales Manager Office Visit Reporton 08-16-2024 Associate Sales Manager Office Visit Report [facility] [address], [address] [place] [address] OFFICE VISIT Date of Service: 08/16/24 MR#: [id number] Acct: [id number] Name: JEFF RUSHING Rep #: [id number] : 1995 Provider: SALLIE Chamberlain ams Age/Sex: 29/F [place] [facility] [place]: Signed Intake Vital Signs 07/27/24 11:04 08/13/24 15:56 08/16/24 15:43 08/16/24 15:46 Height 5 ft 8 in 5 ft 8 in 5 ft 8 in 5 ft 8 in Weight: 238 lb 8 oz BMI 36.2 BP 145/87 H 130/93 H Intake Visit Reasons: 10wk ob per JV Beam Doffer Required: No Is patient in pain?: No Allergies Iodinated Contrast Media Allergy (Mild, Verified 08/16/24 15:44) Hives Medications ???Medication ???Instructions ???Recorded ???Confirmed ???Type progesterone micronized 200 mg 400 mg (2 x 200 mg) vaginal ONCE 0 07/06/24 08/16/24 Rx capsule (Prometrium) #60 caps aspirin 81 mg tablet,delayed 81 mg PO QDAY 05/09/25 06/09/25 Hi story release (Adult Low Dose Aspirin) multivit-min no.71-iron fum 28 cap PO 07/16/24 08/16/24 History mg-folate no.1 1 mg-dha 300 mg capsule (PNV-Arapaho) cephalexin 500 mg capsule 500 mg PO Q12H 5 days #10 caps 08/16/24 Rx ondansetron 4 mg disintegrating 4 mg PO Q6H PRN nausea and 5 08/16/24 Rx tablet vomiting #30 tabs Last Menstrual Period: 05/29/24 Zika: Zika virus screening: Negative : No PFSH PFSH Medical History Recurrent loss Trichomonal vaginitis Seasonal allergies Shingles Cyst of spleen Surgical History [place] teeth removed Family History Grandmother Throat cancer, Onset Age: 68 Maternal Grandfather Lung cancer Maternal, smoker-onset age unknown Father Diabetes Hypertension Myocardial infarction Social History adopted: No household members: significant other housing: house current occupational status: employed 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 Quit Vaping 07/06/24 quit status: quit date established alcohol intake: current alcohol intake frequency: holidays/special occasions only details: socially - but not while substance use type: does not use, former substance user Date of last use: 4 years ago and marijuana well-balanced diet: daily or most days caffeine: Yes Type: carbonated beverages Number of servings: 1 eating out: rarely or never during the past year weight has: increased > 10 lbs what type of physical activity do you participate in: none whit[place]/mormon: Christianity seatbelt use: always do you feel safe at home: Yes additional social history: Significant other - Franck History 3 Elective abortions Hx Para 0 Spontaneous abortions 2 Hx # Term Pregnancies Ectopic pregnancies Hx # Pregnancies Multiple births # of living children 0 Past Pregnancies Del. Date Name GA/Weeks Outcome Route Bth Weight Infant Gen Labor Lgth Anesthesia Del [place] Provider FOB 06/10/20 chemical 4 spontaneous 07/16/212021 5 spontaneous HPI 10wk ob per JV Details: JEFF RUSHING is a 29 year old who presents for routine OB visit. OB Visit JYOTHI Calculator Estimated Delivery Date Method Current WG Current Estimate 03/13/25 Ultrasound #1 10w 1d Other Estimates 03/05/25 LMP (Certain) 11w 2d 03/17/25 Ultrasound #2 9w 4d Expected Delivery Route/Plan Labor Preferences- CB/BF classes: [] labor support person: [] labor intervention preferences: [] pain management options preferred: [] cut cord/dad catch: [] : [] PP control planned: [] discussed possible routes of delivery and associated risks: [] special requests: [] Specific Issue/Plans Covid status: [] Flu vaccine: [] Tdap vaccine: [] Rhogam: [] LARC form signed: [] Problem list reviewed and updated with the most current plan of care details and appropriate orders placed. Relevant counseling for the gestational age provided. Continue routine care and follow up unless otherwise noted in visit notes/problem list details Initial Weight: Not Recorded Date -???-???-???-???-?? ?-???-???-???-???-? ??-???-???- EGA Weight BP Urine Prot -???-???-???-???-?? ? (more content not included)... Normal [facility] Laboratory - Chemistry and C hemistry - challengeOrdered By: Felicia Kaur on 08-13-2024 Glucose Ql (U) Negative [facility] - UrinalysisOrder ed By: Felicia Kaur on 08-13-2024 Protein Ql (U) Negative [facility] Associate Sales Manager Office Visit Reporton 08-13-2024 Associate Sales Manager Office Visit Report [facility] [address], [address] [place] [address] OFFICE VISIT Date of Service: 08/13/24 MR#: [id number] Acct: [id number] Name: JEFF RUSHING Rep #: [id number] : 1995 Provider: SALLIE hull Age/Sex: 29/F [place] [facility] Status: Signed Intake Vital Signs 07/27/24 10:15 07/27/24 11:03 08/09/24 14:00 08/13/24 15:55 08/13/24 15:56 Height 5 ft 8 in 5 ft 8 in 5 ft 8 in 5 ft 8 in 5 ft 8 in Weight: 234 lb 2 oz BMI 35.6 BP 130/82 H Intake Visit Reasons: 9wk ob per JV Beam Doffer Required: No Is patient in pain?: No Allergies Iodinated Contrast Media Allergy (Mild, Verified 08/13/24 15:55) Hives Medications ???Medication ???Instructions ???Recorded ???Confirmed ???Type progesterone micronized 200 mg 400 mg (2 x 200 mg) vaginal ONCE 0 07/06/24 08/13/24 Rx capsule (Prometrium) #60 caps aspirin 81 mg tablet,delayed 81 mg PO QDAY 07/16/24 08/13/24 Hi story release (Adult Low Dose Aspirin) multivit-min no.71-iron fum 28 cap PO 07/16/24 08/13/24 History mg-folate no.1 1 mg-dha 300 mg capsule (PNV-Arapaho) cephalexin 500 mg capsule 500 mg PO Q12H 5 days #10 caps 08/13/24 Rx ondansetron 4 mg disintegrating 4 mg PO Q6H PRN nausea and 5 08/13/24 Rx tablet vomiting #30 tabs Last Menstrual Period: 05/29/24 Zika: Zika virus screening: Negative : No PFSH PFSH Medical History Recurrent loss Trichomonal vaginitis Seasonal allergies Shingles Cyst of spleen Surgical History Viborg teeth removed Family History Grandmother Throat cancer, Onset Age: 68 Maternal Grandfather Lung cancer Maternal, smoker-onset age unknown Father Diabetes Hypertension Myocardial infarction Social History adopted: No household members: significant other housing: house current occupational status: employed 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 Quit Vaping 07/06/24 quit status: quit date established alcohol intake: current alcohol intake frequency: holidays/special occasions only details: socially - but not while substance use type: does not use, former substance user Date of last use: 4 years ago and marijuana well-balanced diet: daily or most days caffeine: Yes Type: carbonated beverages Number of servings: 1 eating out: rarely or never during the past year weight has: increased > 10 lbs what type of physical activity do you participate in: none whitney/mormon: Christianity seatbelt use: always do you feel safe at home: Yes additional social history: Significant other - Franck History 3 Elective abortions Hx Para 0 Spontaneous abortions 2 Hx # Term Pregnancies Ectopic pregnancies Hx # Pregnancies Multiple births # of living children 0 Past Pregnancies Del. Date Name GA/Weeks Outcome Route Bth Weight Infant Gen Labor Lgth Anesthesia Del Locatn Provider FOB 06/10/20 chemical 4 spontaneous 07/16/212021 5 spontaneous HPI 9wk ob per JV Details: JEFF RUSHING is a 29 year old who presents for routine OB visit. OB Visit JYOTHI Calculator Estimated Delivery Date Method Current WG Current Estimate 03/13/25 Ultrasound #1 9w 5d Other Estimates 03/05/25 LMP (Certain) 10w 6d 03/17/25 Ultrasound #2 9w 1d Expected Delivery Route/Plan Labor Preferences- CB/BF classes: [] labor support person: [] labor intervention preferences: [] pain management options preferred: [] cut cord/dad catch: [] : [] PP control planned: [] discussed possible routes of delivery and associated risks: [] special requests: [] Specific Issue/Plans Covid status: [] Flu vaccine: [] Tdap vaccine: [] Rhogam: [] LARC form signed: [] Problem list reviewed and updated with the most current plan of care details and appropriate orders placed. Relevant counseling for the gestational age provided. Continue routine care and follow up unless otherwise noted in visit notes/problem list details Initial Weight: Not Recorded Date -???-???-???-???-?? ?-???-???-???-???-? ??-???-???- EGA Weight BP Urine Pro (more content not included)... Normal [facility] Associate Sales Manager Office Visit Reporton 08-09-2024 Associate Sales Manager Office Visit Report [facility] [address], [address] [place] [address] OFFICE VISIT Date of Service: 08/09/24 MR#: [id number] Acct: [id number] Name: JEFF RUSHING Rep #: [id number] : 1995 Provider: SALLIE Chamberlain ams Age/Sex: 29/F [place] [facility] [place]: Signed Intake Vital Signs 08/03/24 14:54 08/09/24 14:00 08/09/24 14:19 Height 5 ft 8 in 5 ft 8 in Weight: 237 lb 238 lb 8 oz BMI 36.0 36.2 BP 139/91 H 140/98 H 135/88 H Intake Visit Reasons: bleeding, heartbeat check per KW Chief Complaint: Bleeding, Heartbeat check Beam Doffer Required: No Is patient in pain?: No Allergies Iodinated Contrast Media Allergy (Mild, Verified 08/09/24 13:59) Hives Medications ???Medication ???Instructions ???Recorded ???Confirmed ???Type progesterone micronized 200 mg 400 mg (2 x 200 mg) vaginal ONCE 0 07/06/24 08/09/24 Rx capsule (Prometrium) #60 caps aspirin 81 mg tablet,delayed 81 mg PO QDAY 07/16/24 08/09/24 Hi story release (Adult Low Dose Aspirin) multivit-min no.71-iron fum 28 cap PO 07/16/24 08/09/24 History mg-folate no.1 1 mg-dha 300 mg capsule (PNV-Arapaho) cephalexin 500 mg capsule 500 mg PO Q12H 5 days #10 caps 08/09/24 Rx ondansetron 4 mg disintegrating 4 mg PO Q6H PRN nausea and 5 08/09/24 Rx tablet vomiting #30 tabs Last Menstrual Period: 05/29/24 : No PFSH PFSH Medical History Recurrent loss Trichomonal vaginitis Seasonal allergies Shingles Cyst of spleen Surgical History Viborg teeth removed Family History Grandmother Throat cancer, Onset Age: 68 Maternal Grandfather Lung cancer Maternal, smoker-onset age unknown Father Diabetes Hypertension Myocardial infarction Social History adopted: No household members: significant other housing: house current occupational status: employed 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 Quit Vaping 07/06/24 quit status: quit date established alcohol intake: current alcohol intake frequency: holidays/special occasions only details: socially - but not while substance use type: does not use, former substance user Date of last use: 4 years ago and marijuana well-balanced diet: daily or most days caffeine: Yes Type: carbonated beverages Number of servings: 1 eating out: rarely or never during the past year weight has: increased > 10 lbs what type of physical activity do you participate in: none whitney/mormon: Christianity seatbelt use: always do you feel safe at home: Yes additional social history: Significant other - Franck History 3 Elective abortions Hx Para 0 Spontaneous abortions 2 Hx # Term Pregnancies Ectopic pregnancies Hx # Pregnancies Multiple births # of living children 0 Past Pregnancies Del. Date Name GA/Weeks Outcome Route Bth Weight Infant Gen Labor Lgth Anesthesia Del Locatn Provider FOB 06/10/20 chemical 4 spontaneous 07/16/212021 5 spontaneous HPI bleeding, heartbeat check per KW Details: JEFF RUSHING is a 29 year old who presents for routine OB visit. OB Visit JYOTHI Calculator Estimated Delivery Date Method Current WG Current Estimate 03/13/25 Ultrasound #1 9w 2d Other Estimates 03/05/25 LMP (Certain) 10w 3d 03/17/25 Ultrasound #2 8w 5d Expected Delivery Route/Plan Labor Preferences- CB/BF classes: [] labor support person: [] labor intervention preferences: [] pain management options preferred: [] cut cord/dad catch: [] : [] PP control planned: [] discussed possible routes of delivery and associated risks: [] special requests: [] Specific Issue/Plans Covid status: [] Flu vaccine: [] Tdap vaccine: [] Rhogam: [] LARC form signed: [] Problem list reviewed and updated with the most current plan of care details and appropriate orders placed. Relevant counseling for the gestational age provided. Continue routine care and follow up unless otherwise noted in visit notes/problem list details Initial Weight: Not Recorded Date -???-???-???-???-?? ?-???-???-???-???-? ??-???-???- EGA Weight BP Urine Prot -???-?? (more content not included)... Normal [facility] Amphetamine detection with 1 000 ng/mL as cutoffOrdered By: Diana Soliman on 08-03-2024 Amphetamines Screen method >1000 ng/mL Ql (U) Negative < 200 ng/mL [facility] Laboratory - Chemistry and C hemistry - challengeOrdered By: Aaliyah Borrego on 08-03-2024 Glucose Ql (U) Negative [facility] Laboratory - UrinalysisOrder ed By: Aaliyah Borrego on 08-03-2024 Protein Ql (U) Negative [facility] No Panel InformationOrdered By: Diana Soliman on 08-03-2024 Urine Buprenorphine Qualitative Negative < 200 ng/mL [facility] Urine Oxycodone Screen Negative < 100 ng/mL [facility] Associate Sales Manager Office Visit Reporton 08-03-2024 Associate Sales Manager Office Visit Report [facility] [address], [address] [place] [address] OFFICE VISIT Date of Service: 08/03/24 MR#: [id number] Acct: [id number] Name: JEFF RUSHING Rep #: [id number] : 1995 Provider: SALLIE Chamberlain ams Age/Sex: 29/F [place] [facility] [place]: Signed Intake Vital Signs 07/27/24 10:15 07/27/24 11:04 08/03/24 14:54 Height 5 ft 8 in 5 ft 8 in 5 ft 8 in Weight: 237 lb BMI 36.0 BP 139/91 H Intake Visit Reasons: 8wk ob *rescan per JV Chief Complaint: 8wk OB Beam Doffer Required: No Is patient in pain?: No Allergies Iodinated Contrast Media Allergy (Mild, Verified 08/03/24 14:52) Hives Medications ???Medication ???Instructions ???Recorded ???Confirmed ???Type progesterone micronized 200 mg 400 mg (2 x 200 mg) vaginal ONCE 0 07/06/24 08/03/24 Rx capsule (Prometrium) #60 caps aspirin 81 mg tablet,delayed 81 mg PO QDAY 07/16/24 08/03/24 Hi story release (Adult Low Dose Aspirin) multivit-min no.71-iron fum 28 cap PO 07/16/24 08/03/24 History mg-folate no.1 1 mg-dha 300 mg capsule (PNV-Arapaho) cephalexin 500 mg capsule 500 mg PO Q12H 5 days #10 caps 08/03/24 Rx ondansetron 4 mg disintegrating 4 mg PO Q6H PRN nausea and 5 08/03/24 Rx tablet vomiting #30 tabs Last Menstrual Period: 05/29/24 : No Have you fallen in the past year?: No PFSH PFSH Medical History Recurrent loss Trichomonal vaginitis Seasonal allergies Shingles Cyst of spleen Surgical History Viborg teeth removed Family History Grandmother Throat cancer, Onset Age: 68 Maternal Grandfather Lung cancer Maternal, smoker-onset age unknown Father Diabetes Hypertension Myocardial infarction Social History adopted: No household members: significant other housing: house current occupational status: employed 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 Quit Vaping 07/06/24 quit status: quit date established alcohol intake: current alcohol intake frequency: holidays/special occasions only details: socially - but not while substance use type: does not use, former substance user Date of last use: 4 years ago and marijuana well-balanced diet: daily or most days caffeine: Yes Type: carbonated beverages Number of servings: 1 eating out: rarely or never during the past year weight has: increased > 10 lbs what type of physical activity do you participate in: none whitney/mormon: Christianity seatbelt use: always do you feel safe at home: Yes additional social history: Significant other - Franck History 3 Elective abortions Hx Para 0 Spontaneous abortions 2 Hx # Term Pregnancies Ectopic pregnancies Hx # Pregnancies Multiple births # of living children 0 Past Pregnancies Del. Date Name GA/Weeks Outcome Route Bth Weight Infant Gen Labor Lgth Anesthesia Del Locatn Provider FOB 06/10/20 chemical 4 spontaneous 07/16/212021 5 spontaneous HPI 8wk ob *rescan per JV Details: JEFF RUSHING is a 29 year old who presents for routine OB visit. OB Visit JYOTHI Calculator Estimated Delivery Date Method Current WG Current Estimate 03/13/25 Ultrasound #1 8w 2d Other Estimates 03/05/25 LMP (Certain) 9w 3d 03/17/25 Ultrasound #2 7w 5d Expected Delivery Route/Plan Labor Preferences- CB/BF classes: [] labor support person: [] labor intervention preferences: [] pain management options preferred: [] cut cord/dad catch: [] : [] PP control planned: [] discussed possible routes of delivery and associated risks: [] special requests: [] Specific Issue/Plans Covid status: [] Flu vaccine: [] Tdap vaccine: [] Rhogam: [] LARC form signed: [] Problem list reviewed and updated with the most current plan of care details and appropriate orders placed. Relevant counseling for the gestational age provided. Continue routine care and follow up unless otherwise noted in visit notes/problem list details Initial Weight: Not Recorded Date -???-???-???-???-?? ?-???-???-???-???-? ??-???-???- EGA Weight BP Urine Prot -???-???-???-???-?? ?-???-???-???-? (more content not included)... Normal [facility] Quantitative urine opiates m easurementOrdered By: Diana Soliman on 08-03-2024 Opiates Ql (U) Negative < 300 ng/mL [facility] Screening urine fentanyl patti surementOrdered By: Diana Soliman on 08-03-2024 fentaNYL Screen Ql (U) Negative [facility] Urine Drug Screen (VISTA)on 08-03-2024 AMPHETAMINES Negative Normal <1000 ng/mL [facility] Comment on above: Order Comment: N day 20231010 Performed By: #### L 4500.0100, L3100.8410, L3410.2000, L801.2600 #### [facility] [address] [place], [place], [id number] BARBITIURATES Negative Normal < 200 ng/mL [facility] Comment on above: Order Comment: N day 20231010 Performed By: #### L 4500.0100, L3100.8410, L3410.2000, L801.2600 #### [facility] [address] [place], [address] BENZODIAZIPINE Negative Normal < 200 ng/mL [facility] Comment on above: Order Comment: N 20231010 Performed By: #### L 4500.0100, L3100.8410, L3410.2000, L801.2600 #### [facility] [address] [place], [address] BUP Ur Drug Scr Negative Normal < 200 ng/mL [facility] Comment on above: Order Comment: N 20231010 Performed By: #### L 4500.0100, L3100.8410, L3410.2000, L801.2600 #### [facility] [address] [place], [address] COCAINE Negative Normal < 300 ng/mL [facility] Comment on above: Order Comment: N 20231010 Performed By: #### L 4500.0100, L3100.8410, L3410.2000, L801.2600 #### [facility] [address] [place], [address] Fentanyl Negative Normal [facility] Comment on above: Order Comment: N 20231010 Performed By: #### L 4500.0100, L3100.8410, L3410.2000, L801.2600 #### [facility] [address] [place], [address] METHADONE Negative Normal < 300 ng/mL [facility] Comment on above: Order Comment: N 20231010 Performed By: #### L 4500.0100, L3100.8410, L3410.2000, L801.2600 #### [facility] [address] [place], [address] OPIATES Negative Normal < 300 ng/mL [facility] Comment on above: Order Comment: N 20231010 Performed By: #### L 4500.0100, L3100.8410, L3410.2000, L801.2600 #### [facility] [address] [place], [address] OXYCODONE Negative Normal < 100 ng/mL [facility] Comment on above: Order Comment: N day 20231010 Performed By: #### L 4500.0100, L3100.8410, L3410.2000, L801.2600 #### [facility] [address] [place], [address] PCP Negative Normal < 25 ng/mL [facility] Comment on above: Order Comment: N day 20231010 Performed By: #### L 4500.0100, L3100.8410, L3410.2000, L801.2600 #### [facility] [address] [place], [address] THC Negative Normal < 50 ng/mL [facility] Comment on above: Order Comment: N day 20231010 Performed By: #### L 4500.0100, L3100.8410, L3410.2000, L801.2600 #### [facility] [address] [place], [address] Urine benzodiazepine levelOr dered By: Diana Soliman on 08-03-2024 Benzodiazepines Ql (U) Negative < 200 ng/mL [facility] Urine cocaine levelOrdered B y: Diana Soliman on 08-03-2024 Cocaine Ql (U) Negative < 300 ng/mL [facility] Urine uaddt-4-xgigzrgonlsump abinol (THC) measurementOrdered By: Diana Soliman on 08-03-2024 Cannabinoids Screen Ql (U) Negative < 50 ng/mL [facility] Urine phencyclidine (PCP) de tectionOrdered By: Diana Soliman on 08-03-2024 Phencyclidine Ql (U) Negative < 25 ng/mL [facility] Genital Culture Comprehensiv key 05-22-2025 VAC Reason for Exam: vaginal discharge Normal vaginal job isolated. No yeast, Gardnerella, Neisseria or beta-hemolytic Streptococcus isolated. Normal [facility] Comment on above: Performed By: #### L 4500.0100, L3100.8410, L3410.2000, L801.2600 #### [facility] [address] [place], [address] Chlamydia/GC PETER aptimaon CHLAMY,NUC ACID Negative Normal Negative [facility] Comment on above: Performed By: #### L 4500.0100, L3100.8410, L3410.2000, L801.2600 #### [facility] [address] [place], [address] GC BY NUC ACID Negative Normal Negative [facility] Comment on above: Result Comment: Perf ormed at: =G - [facility] [address] [id number] Tension Machine Operator: Jada Mayberry MD, Phone: [phone] Performed By: #### L 4500.0100, L3100.8410, L3410.2000, L801.2600 #### [facility] [address] [place], [address] Urine Cultureon 07-28-2024 [facility] Mixed Gram Positive Organisms Bovey Count 11,000-25,000 MIXC Mixed contaminants. Submit a new specimen if indicated. Normal [facility] Comment on above: Performed By: #### L 4500.0100, L3100.8410, L3410.2000, L801.2600 #### [facility] [address] [place], [address] Chlamydia trachomatis rRNA d etection by probe and target amplification methodOrdered By: Diana Soliman on 07-27-2024 C. trachomatis rRNA PETER+probe Ql (Unsp spec) Negative Negative [facility] Genital cultureOrdered By: María Soliman on 07-27-2024 Source specific culture Neisseria or beta-hemolytic Streptococcus isolated. [facility] Gram Stainon 07-27-2024 GS Reason for Exam: vaginal discharge Gram Stain 4+ Gram positive rods 1+ Gram variable ximena No Gram negative diplococci Score =1 Interpretation: 0-3 Normal, 4-6 Intermediate, 7-10 Positive BV Normal [facility] Comment on above: Performed By: #### L 4500.0100, L3100.8410, L3410.2000, L801.2600 #### [facility] [address] [place], [address] Gram stainOrdered By: Daniel Soliman on 07-27-2024 Microscopic observation Gram stain Nom (Unsp spec) [facility] Neisseria gonorrhoeae nuclei c acid detection by amplified probe techniqueOrdered By: Diana Soliman on 07-27-2024 N. gonorrhoeae DNA PETER+probe Ql (Unsp spec) Negative Negative [facility] Comment on above: Performed at: =[address] [id number] Director: Jada Mayberry MD, Phone: [phone] Associate Sales Manager Office Visit Reporton 07-27-2024 Associate Sales Manager Office Visit Report [facility] [address], [address] [place] [address] OFFICE VISIT Date of Service: 07/27/24 MR#: [id number] Acct: [id number] Name: JEFF RUSHING Rep #: [id number] : 1995 Provider: Dr. Diana Morton DO Age/Sex: 29/F [place] [facility] [place]: Signed Intake Vital Signs 10/17/23 10:44 07/16/24 14:24 07/25/24 11:13 07/27/24 10:15 07/27/24 10:15 Height 5 ft 8 in 5 ft 8 in 5 ft 8 in 5 ft 8 in 5 ft 8 in Weight: 234 lb 2 oz BMI 35.6 BP 138/88 H Intake Visit Reasons: NOB: LMP 05/29/24, JYOTHI 03/05/25 Beam Doffer Required: No Is patient in pain?: No Allergies Iodinated Contrast Media Allergy (Mild, Verified 07/27/24 10:13) Hives Medications ???Medication ???Instructions ???Recorded ???Confirmed ???Type progesterone micronized 200 mg 400 mg (2 x 200 mg) vaginal ONCE 0 07/06/24 07/27/24 Rx capsule (Prometrium) #60 caps aspirin 81 mg tablet,delayed 81 mg PO QDAY 07/16/24 07/27/24 Hi story release (Adult Low Dose Aspirin) multivit-min no.71-iron fum 28 cap PO 07/16/24 07/27/24 History mg-folate no.1 1 mg-dha 300 mg capsule (PNV-Arapaho) cephalexin 500 mg capsule 500 mg PO Q12H 5 days #10 caps 07/27/24 Rx ondansetron 4 mg disintegrating 4 mg PO Q6H PRN nausea and 5 07/27/24 Rx tablet vomiting #30 tabs Last Menstrual Period: 05/29/24 Zika: Zika virus screening: Negative : No PFSH PFSH Medical History Recurrent loss Trichomonal vaginitis Seasonal allergies Shingles Cyst of spleen Surgical History Viborg teeth removed Family History Grandmother Throat cancer, Onset Age: 68 Maternal Grandfather Lung cancer Maternal, smoker-onset age unknown Father Diabetes Hypertension Myocardial infarction Social History adopted: No household members: significant other housing: house current occupational status: employed 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 Quit Vaping 07/06/24 quit status: quit date established alcohol intake: current alcohol intake frequency: holidays/special occasions only details: socially - but not while substance use type: does not use, former substance user Date of last use: 4 years ago and marijuana well-balanced diet: daily or most days caffeine: Yes Type: carbonated beverages Number of servings: 1 eating out: rarely or never during the past year weight has: increased > 10 lbs what type of physical activity do you participate in: none whit[place]/mormon: Christianity seatbelt use: always do you feel safe at home: Yes additional social history: Significant other - Franck History 3 Elective abortions Hx Para 0 Spontaneous abortions 2 Hx # Term Pregnancies Ectopic pregnancies Hx # Pregnancies Multiple births # of living children 0 Past Pregnancies Del. Date Name GA/Weeks Outcome Route Bth Weight Gen Labor Lgth Anesthesia Del Locatn Provider FOB 06/10/20 chemical 4 spontaneous 07/16/212021 5 spontaneous HPI NOB: LMP 05/29/24, JYOTHI 03/05/25 Details: JEFF RUSHING is a 29 year old who presents for New OB visit. OB Visit JYOTHI Calculator Estimated Delivery Date Method Current WG Current Estimate 03/13/25 Ultrasound #1 7w 2d Other Estimates 03/05/25 LMP (Certain) 8w 3d 03/17/25 Ultrasound #2 6w 5d Estimated Due Date: 03/05/25 Expected Delivery Route/Plan Labor Preferences- CB/BF classes: [] labor support person: [] labor intervention preferences: [] pain management options preferred: [] cut cord/dad catch: [] : [] PP control planned: [] discussed possible routes of delivery and associated risks: [] special requests: [] Specific Issue/Plans Covid status: [] Flu vaccine: [] Tdap vaccine: [] Rhogam: [] LARC form signed: [] Problem list reviewed and updated with the most current plan of care details and appropriate orders placed. Relevant counseling for the gestational age provided. Continue routine care and follow up unless otherwise noted in visit notes/problem list details Initial Weight: Not Recorded Date -??? (more content not included)... Normal [facility] Absolute lymphocyte countOrd ered By: Margarito Huston on 07-25-2024 Lymphocytes Auto (Unsp spec) [#/Vol] 2.34 10*3/uL 0.83-4.51 [facility] Absolute neutrophil countOrd ered By: Margarito Huston on 07-25-2024 Neutrophils (Bld) [#/Vol] 3.9 10*3/uL 2.0-7.7 [facility] Anion gap in Serum or Plasma Ordered By: Margarito Huston on 07-25-2024 Anion gap [Moles/Vol] 12 mmol/L 5-15 [facility] Automated lymphocyte count a s percentage of total leukocytesOrdered By: Margarito Huston on 07-25-2024 Lymphocytes/100 WBC Auto (Unsp spec) 35.0 % 19-41 [facility] [id number] 07-25-2024 ABO and Rh group Nom (Bld) Blood group O Rh(D) positive Normal [facility] Comment on above: Performed By: #### L 4500.0100, L3100.8410, L3410.2000, L801.2600 #### [facility] [address] [place], [place], [id number] BUN/creatinine ratioOrdered By: Margarito Huston on 07-25-2024 Urea nitrogen/Creatinine [Mass ratio] 12.3 mg/mg 10-20 [facility] Basophil percentageOrdered B y: Margarito Huston on 07-25-2024 Basophils/100 WBC (Bld) 0.3 % 0-1 [facility] Bilirubin Test strip Ql (U)O rdered By: Margarito Huston on 07-25-2024 Bilirubin Ql (U) Negative Negative [facility] Bilirubin, totalOrdered By: Margarito Huston on 07-25-2024 Bilirubin [Mass/Vol] 0.52 mg/dL 0.00-1.30 [facility] CBC W/Diff, Automatedon 07-08 Absolute Lymph 2.34 X10 3/uL Normal 0.83-4.51 [facility] Comment on above: Performed By: #### L 4500.0100, L3100.8410, L3410.2000, L801.2600 #### [facility] [address] [place], [place], [id number] Absolute Neut 3.9 X10 3/uL Normal 2.0-7.7 [facility] Comment on above: Performed By: #### L 4500.0100, L3100.8410, L3410.2000, L801.2600 #### [facility] [address] [place], [address] Basophils/100 WBC (Bld) 0.3 % Normal 0-1 [facility] Comment on above: Performed By: #### L 4500.0100, L3100.8410, L3410.2000, L801.2600 #### [facility] [address] [place], [address] Eosinophils/100 WBC (Bld) 0.6 % Normal 0-5 [facility] Comment on above: Performed By: #### L 4500.0100, L3100.8410, L3410.2000, L801.2600 #### [facility] [address] [place], [address] Erythrocyte distribution width (RBC) [Ratio] 12.2 % Normal 11.6-14.6 [facility] Comment on above: Performed By: #### L 4500.0100, L3100.8410, L3410.2000, L801.2600 #### [facility] [address] [place], [address] Hematocrit (Bld) [Volume fraction] 42.8 % Normal 37-47 [facility] Comment on above: Performed By: #### L 4500.0100, L3100.8410, L3410.2000, L801.2600 #### [facility] [address] [place], [address] Hemoglobin (Bld) [Mass/Vol] 14.9 g/dL Normal 12.0-15.0 [facility] Comment on above: Performed By: #### L 4500.0100, L3100.8410, L3410.2000, L801.2600 #### [facility] [address] [place], [address] IG% 0.300 Normal 0.0-0.9 [facility] Comment on above: Result Comment: IG% - Immature Granulocytes (promyelocytes, myelocytes and metamyelocytes) > 1% indicates that a LEFT SHIFT is Present. Performed By: #### L 4500.0100, L3100.8410, L3410.1999, L801.2600 #### [facility] [address] [place], [address] Lymphocytes/100 WBC (Bld) 35.0 % Normal 19-41 [facility] Comment on above: Performed By: #### L 4500.0100, L3100.8410, L3410.1999, L801.2600 #### [facility] [address] [place], [address] MCH (RBC) [Entitic mass] 29.3 pg Normal 27.0-32.0 [facility] Comment on above: Performed By: #### L 4500.0100, L3100.8410, L3410.1999, L801.2600 #### [facility] [address] [place], [address] MCHC (RBC) [Mass/Vol] 34.8 g/dL Normal 32-36 [facility] Comment on above: Performed By: #### L 4500.0100, L3100.8410, L3410.1999, L801.2600 #### [facility] [address] [place], [address] MCV (RBC) [Entitic vol] 84.1 fL Normal 81-99 [facility] Comment on above: Performed By: #### L 4500.0100, L3100.8410, L3410.2000, L801.2600 #### [facility] [address] [place], [address] Monocytes/100 WBC (Bld) 5.1 % Normal 0-10 [facility] Comment on above: Performed By: #### L 4500.0100, L3100.8410, L3410.2000, L801.2600 #### [facility] [address] [place], [address] Neutrophils/100 WBC (Bld) 58.7 % Normal 47-70 [facility] Comment on above: Performed By: #### L 4500.0100, L3100.8410, L3410.2000, L801.2600 #### [facility] [address] [place], [address] Nucleated RBC (Bld) [#/Vol] 0 10*3/uL Normal 0-5 [facility] Comment on above: Performed By: #### L 4500.0100, L3100.8410, L3410.1999, L801.2600 #### [facility] [address] [place], [address] Platelet mean volume (Bld) [Entitic vol] 11.9 fL Normal 6.2-12.0 [facility] Comment on above: Performed By: #### L 4500.0100, L3100.8410, L3410.1999, L801.2600 #### [facility] [address] [place], [address] Platelets (Bld) [#/Vol] 203 10*3/uL Normal 150-450 [facility] Comment on above: Performed By: #### L 4500.0100, L3100.8410, L3410.2000, L801.2600 #### [facility] [address] [place], [address] RBC (Bld) [#/Vol] 5.09 10*6/uL Normal 4.2-5.4 [facility] Comment on above: Performed By: #### L 4500.0100, L3100.8410, L3410.2000, L801.2600 #### [facility] [address] [place], [address] RDW SD 36.9 fl Normal 35.1-43.9 [facility] Comment on above: Performed By: #### L 4500.0100, L3100.8410, L3410.2000, L801.2600 #### [facility] [address] [place], [address] WBC (Bld) [#/Vol] 6.7 10*3/uL Normal 4.4-11.0 [facility] Comment on above: Performed By: #### L 4500.0100, L3100.8410, L3410.1999, L801.2600 #### [facility] [address] [place], [address] Carbon dioxide, total [Moles /volume] in Central venous bloodOrdered By: Margarito Huston on 07-25-2024 CO2 [Moles/Vol] 20.4 mmol/L Low 21.0-32.0 [facility] Chloride assayOrdered By: Kalpesh Huston on 07-25-2024 Chloride [Moles/Vol] 104 mmol/L 98-108 [facility] Comprehensive Metabolic Prof ilon 07-25-2024 Albumin [Mass/Vol] 4.4 g/dL Normal 3.5-5.0 [facility] Comment on above: Performed By: #### L 4500.0100, L3100.8410, L3410.2000, L801.2600 #### [facility] [address] [place], [address] Albumin/Globulin [Mass ratio] 1.5 {ratio} Normal 0.9-2.4 [facility] Comment on above: Performed By: #### L 4500.0100, L3100.8410, L3410.2000, L801.2600 #### [facility] [address] [place], [address] ALK PHOS 73 U/L Normal 35-104 [facility] Comment on above: Performed By: #### L 4500.0100, L3100.8410, L3410.2000, L801.2600 #### [facility] [address] [place], [address] ALT [Catalytic activity/Vol] 22 U/L Normal <=34 [facility] Comment on above: Performed By: #### L 4500.0100, L3100.8410, L3410.2000, L801.2600 #### [facility] [address] [place], [address] AST [Catalytic activity/Vol] 17 U/L Normal <=31 [facility] Comment on above: Performed By: #### L 4500.0100, L3100.8410, L3410.1999, L801.2600 #### [facility] [address] [place], [address] Bilirubin [Mass/Vol] 0.52 mg/dL Normal 0.00-1.30 [facility] Comment on above: Performed By: #### L 4500.0100, L3100.8410, L3410.1999, L801.2600 #### [facility] [address] [place], [address] BUN/CRE 12.3 RATIO Normal 10-20 [facility] Comment on above: Performed By: #### L 4500.0100, L3100.8410, L3410.2000, L801.2600 #### [facility] [address] [place], [address] Calcium [Mass/Vol] 9.3 mg/dL Normal 7.6-11.0 [facility] Comment on above: Performed By: #### L 4500.0100, L3100.8410, L3410.1999, L801.2600 #### [facility] [address] [place], [address] Chloride [Moles/Vol] 104 mmol/L Normal 98-108 [facility] Comment on above: Performed By: #### L 4500.0100, L3100.8410, L3410.1999, L801.2600 #### [facility] [address] [place], [address] CO2 [Moles/Vol] 20.4 mmol/L Low 21.0-32.0 [facility] Comment on above: Performed By: #### L 4500.0100, L3100.8410, L3410.1999, L801.2600 #### [facility] [address] [place], [address] Creatinine [Mass/Vol] 0.41 mg/dL Low 0.70-1.20 [facility] Comment on above: Performed By: #### L 4500.0100, L3100.8410, L3410.1999, L801.2600 #### [facility] [address] [place], [address] ECRCL 260.82 ml/min High 50-250 [facility] Comment on above: Performed By: #### L 4500.0100, L3100.8410, L3410.1999, L801.2600 #### [facility] [address] [place], [address] GAP 12 Normal 5-15 [facility] Comment on above: Performed By: #### L 4500.0100, L3100.8410, L3410.2000, L801.2600 #### [facility] [address] [place], [address] GFR/1.73 sq M.predicted among non-blacks MDRD (S/P/Bld) [Vol rate/Area] 138 mL/min/{1.73_m2} Normal >60 [facility] Comment on above: Result Comment: mL/m in/1.73m2 CKD-EPI Creatinine Equation (2020) Performed By: #### L 4500.0100, L3100.8410, L3410.2000, L801.2600 #### [facility] [address] [place], [address] Globulin (S) [Mass/Vol] 2.8 g/dL Normal 2.2-4.2 [facility] Comment on above: Performed By: #### L 4500.0100, L3100.8410, L3410.1999, L801.2600 #### [facility] [address] [place], [address] Glucose [Mass/Vol] 87 mg/dL Normal 70-99 [facility] Comment on above: Performed By: #### L 4500.0100, L3100.8410, L3410.1999, L801.2600 #### [facility] [address] [place], [address] Potassium [Moles/Vol] 3.6 mmol/L Normal 3.3-5.1 [facility] Comment on above: Performed By: #### L 4500.0100, L3100.8410, L3410.1999, L801.2600 #### [facility] [address] [place], [address] Sodium [Moles/Vol] 136 mmol/L Normal 133-145 [facility] Comment on above: Performed By: #### L 4500.0100, L3100.8410, L3410.2000, L801.2600 #### [facility] [address] [place], [address] T PROT 7.2 g/dL Normal 5.9-8.4 [facility] Comment on above: Performed By: #### L 4500.0100, L3100.8410, L3410.2000, L801.2600 #### [facility] [address] [place], [address] Urea nitrogen [Mass/Vol] 5 mg/dL Normal 4-19 [facility] Comment on above: Performed By: #### L 4500.0100, L3100.8410, L3410.2000, L801.2600 #### [facility] [address] [place], [address] Emergency Department Summary on 07-25-2024 Emergency Department Summary [facility] [address] [facility] [place] [address] Emergency Department Summary 07/25/24 MR#: [id number] Acct: [id number] Name: JEFF RUSHING Rep #: [id number] : 1995 29 From: Margarito Huston DO PCP: Care Physician,No Primary Status:REG ER Location: ED HPI HPI - Female History of Present Illness Chief Complaint: Vag Bld, Preg Narrative Narrative: 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 Patient states that she is about 6 weeks and notes that around Mother's Day she started having some spotting with brown discharge states that she followed up with her OB at that point time and noted that they did an ultrasound that showed a intrauterine gestational sac. She states that she is on progesterone suppositories as she has a history of low progesterone and also was recently treated with Keflex for urinary tract infection. Patient states that last night she had some cramping and had some heavier bleeding therefore she called her BILL CHECKER and they advised her to come here for further evaluation management. Patient states that she is not have any pain right now. [facility] Medical History Recurrent loss Trichomonal vaginitis Seasonal allergies Shingles Cyst of spleen Home Medications ???Medication ???Instructions ???Recorded ???Last Taken ???Type progesterone micronized 200 mg 400 mg (2 x 200 mg) vaginal ONCE 0 07/06/24 Unknown Rx capsule (Prometrium) #60 caps aspirin 81 mg tablet,delayed 81 mg PO QDAY 07/16/24 Unknown His tory release (Adult Low Dose Aspirin) multivit-min no.71-iron fum 28 cap PO 07/16/24 Unknown History mg-folate no.1 1 mg-dha 300 mg capsule (PNV-[place]aho) cephalexin 500 mg capsule 500 mg PO Q12H 5 days #10 caps Unknown Rx Allergy/AdvReac Type Severity Reaction Status Date / Time Iodinated Contrast Media Allergy Mild Hives Verified 07/25/24 11:13 Family History Grandmother Throat cancer, Onset Age: 68 Maternal Grandfather Lung cancer Maternal, smoker-onset age unknown Father Diabetes Hypertension Myocardial infarction Surgical History [place] teeth removed Social History adopted: No household members: significant other housing: house current occupational status: employed 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 Quit Vaping 07/06/24 quit status: quit date established alcohol intake: current alcohol intake frequency: holidays/special occasions only details: socially - but not while substance use type: does not use, former substance user Date of last use: 4 years ago and marijuana well-balanced diet: daily or most days caffeine: Yes Type: carbonated beverages Number of servings: 1 eating out: rarely or never during the past year weight has: increased > 10 lbs what type of physical activity do you participate in: none whit[place]/mormon: Christianity seatbelt use: always do you feel safe at home: Yes additional social history: Significant other - Franck GROSS ROS ED ROS Narrative Constitutional: Denies fevers, chills, headaches malaise, dizziness Abdomen: Denies abdominal pain nausea vomit diarrhea : Complains of vaginal spotting as noted above denies painful urination, hematuria, polyuria Neurological: Denies numbness, weakness, tingling Musculoskeletal: Denies back pain Skin: Denies rashes or lesions EXAM Physical Exam Narrative Exam Narrative: General: Patient was lying bed rest comfortably did not appear to be acute distress Head: Atraumatic, normocephalic Eyes: PERRL bilaterally, EOMI bilateral, no conjunctival injection noted Neck: Soft, supple, trachea midline Abdomen: Soft, nondistended, nontender to palpation Extremities: +5/5 strength in the bilateral upper and lower extremities Neurological: Patient follow commands knew that she was at [facility] year is 2024 Skin: Warm, dry, intact no rashes lesions noted Const Vital Signs: 07/25/24 11:13 Temperature 97.3 F L Temperature Source Temporal Pulse Rate 89 Respiratory Rate 16 Blood Pressure 134/101 H Blood Pressure Mean 112 Pulse Ox 99 Oxygen Delivery Method Room A (more content not included)... Normal [facility] Eosinophil percentageOrdered By: Margarito Huston on 07-25-2024 Eosinophils/100 WBC (Bld) 0.6 % 0-5 [facility] Erythrocyte distribution wid th ratioOrdered By: Margarito Huston on 07-25-2024 Erythrocyte distribution width (RBC) [Ratio] 12.2 % 11.6-14.6 [facility] Erythrocyte distribution wid th standard deviationOrdered By: Margarito Huston on 07-25-2024 Erythrocyte distribution width (RBC) [Ratio] 36.9 fl 35.1-43.9 [facility] Glomerular filtration rate ( GFR) estimation/1.73 sq m using serum, plasma, or whole bOrdered By: Margarito Huston on 07-25-2024 GFR/1.73 sq M.predicted among non-blacks MDRD (S/P/Bld) [Vol rate/Area] 138 mL/min/{1.73_m2} >60 [facility] Comment on above: mL/min/1.73m2 CKD-EP I Creatinine Equation (2020) Hematocrit Auto (Bld) [Volum e fraction]Ordered By: Margarito Huston on 07-25-2024 Hematocrit (Bld) [Volume fraction] 42.8 % 37-47 [facility] Hemoglobin measurementOrdere d By: Margarito Huston on 07-25-2024 Hemoglobin (Bld) [Mass/Vol] 14.9 g/dL 12.0-15.0 [facility] Immature granulocytes/100 WB C Auto (Bld)Ordered By: Margarito Huston on 07-25-2024 Immature granulocytes/100 WBC (Bld) 0.300 % 0.0-0.9 [facility] Comment on above: IG% - Immature Granu locytes (promyelocytes, myelocytes and metamyelocytes) > 1% indicates that a LEFT SHIFT is Present. Ketones Test strip Ql (U)Ord ered By: Margarito Huston on 07-25-2024 Ketones Ql (U) Negative Negative [facility] - Chemistry and C hemistry - challengeOrdered By: Margarito Huston on 07-25-2024 AST [Catalytic activity/Vol] 17 U/L <32 [facility] Lipaseon 07-25-2024 Lipase [Catalytic activity/Vol] 17 U/L Normal 13-75 [facility] Comment on above: Result Comment: Plea se note: LIPASE revised reference range effective 22. New Lipase methodology. Expected to produce lower values than the previous assay method. NEW Reference Range: 13 - 75 U/L Performed By: #### L 4500.0100, L3100.8410, L3410.2000, L801.2600 #### [facility] [address] [place] [address], [address] Lipase measurementOrdered By : Margarito Huston on 07-25-2024 Lipase [Catalytic activity/Vol] 17 U/L 13-75 [facility] Comment on above: Please note:LIPASE r evised reference range effective 22. New Lipase methodology. Expected to produce lower values than the previous assay method. NEW Reference Range: 13 - 75 U/L MCV (mean corpuscular volume ) determinationOrdered By: Margarito Huston on 07-25-2024 MCV (RBC) [Entitic vol] 84.1 fL 81-99 [facility] Mean corpuscular hemoglobin (MCH) determinationOrdered By: Margarito Huston on 07-25-2024 MCH (RBC) [Entitic mass] 29.3 pg 27.0-32.0 [facility] Mean corpuscular hemoglobin concentration (MCHC) determinationOrdered By: Margarito Huston on 07-25-2024 MCHC (RBC) [Mass/Vol] 34.8 g/dL 32-36 [facility] Mean platelet volume determi nationOrdered By: Margarito Huston on 07-25-2024 Platelet mean volume (Bld) [Entitic vol] 11.9 fL 6.2-12.0 [facility] Microscopic analysis of urin e for red blood cells (RBC)Ordered By: Margarito Huston on 07-25-2024 Microscopic analysis of urine for red blood cells (RBC) 0-5 SEEN /hpf 0-5 [facility] Monocyte percentageOrdered B y: Margarito Huston on 07-25-2024 Monocytes/100 WBC (Bld) 5.1 % 0-10 [facility] Mucus LM Ql (Urine sed)Order ed By: Margarito Huston on 07-25-2024 Mucus Ql (Urine sed) 1+ /hpf [facility] Neutrophil percentageOrdered By: Margarito Huston on 07-25-2024 Neutrophils/100 WBC (Bld) 58.7 % 47-70 [facility] Nitrite Test strip Ql (U)Ord ered By: Margarito Huston on 07-25-2024 Nitrite Ql (U) Negative Negative [facility] Nucleated red blood cell per centageOrdered By: Margarito Huston on 07-25-2024 Nucleated RBC/100 WBC (Bld) [Ratio] 0 % 0-5 [facility] Platelet countOrdered By: Kalpesh Huston on 07-25-2024 Platelets (Bld) [#/Vol] 203 10*3/uL 150-450 [facility] Potassium measurement (mass/ volume)Ordered By: Margarito Huston on 07-25-2024 Potassium (Unsp spec) [Mass/Vol] 3.6 mmol/L 3.3-5.1 [facility] ,Serum,hCG Quali.on 07-25-2024 HCG, SERUM QUAL Positive Normal [facility] Comment on above: Result Comment: RESU LTS CALLED TO Stefany KAM 07/25/24 1200 Jailene Kerr. REPORT READ BACK BY SAME. Performed By: #### L 4500.0100, L3100.8410, L3410.2000, L801.2600 #### [facility] [address] [place], [address] Protein Test strip Ql (U)Ord ered By: Margarito Huston on 07-25-2024 Protein Ql (U) 30 mg/dl High Negative [facility] RBC Auto (Bld) [#/Vol]Ordere d By: Margarito Huston on 07-25-2024 RBC (Bld) [#/Vol] 5.09 10*6/uL 4.2-5.4 [facility] Serum beta-hCG test, qualita tiveOrdered By: Margarito Huston on 07-25-2024 Beta HCG ( test) Ql Negative [facility] Comment on above: RESULTS CALLED TO Stefany KAM 07/25/24 1200 Jailene Krer.REPORT READ BACK BY SAME. Serum creatinine measurement (mass/volume)Ordered By: Margarito Huston on 07-25-2024 Creatinine [Mass/Vol] 0.41 mg/dL Low 0.70-1.20 [facility] Serum globulin measurementOr dered By: Margarito Huston on 07-25-2024 Globulin (S) [Mass/Vol] 2.8 g/dL 2.2-4.2 [facility] Serum glucose measurement (m ass/volume)Ordered By: Margarito Huston on 07-25-2024 Glucose [Mass/Vol] 87 mg/dL 70-99 [facility] Serum human chorionic gonado tropin detection for pregnancyOrdered By: Margarito Huston on 07-25-2024 HCG ( test) Ql [address] mIU/mL High <9 [facility] Comment on above: Gestational Age0.2-1 Week: 5-50 mIU/mL1-2 Weeks: 50-500 mIU/mL2-3 Weeks: 100-5000 mIU/mL3-4 Weeks: 500-10,000 mIU/mL4-5 Weeks:1000-50,000 mIU/mL5-6 Weeks: 10,000-100,000 mIU/mL6-8 Weeks: 15,000-200,000 mIU/mL2-3 Months:10,000-100,000 mIU/mL Serum or plasma alanine bae otransferase (ALT) measurementOrdered By: Margarito Huston on 07-25-2024 ALT [Catalytic activity/Vol] 22 U/L <35 [facility] Serum or plasma albumin ash urement (mass/volume)Ordered By: Margarito Huston on 07-25-2024 Albumin [Mass/Vol] 4.4 g/dL 3.5-5.0 [facility] Serum or plasma albumin/glob ulin mass ratioOrdered By: Margarito Huston on 07-25-2024 Albumin/Globulin [Mass ratio] 1.5 {ratio} 0.9-2.4 [facility] Serum or plasma alkaline belle sphatase measurementOrdered By: Margarito Huston on 07-25-2024 ALP [Catalytic activity/Vol] 73 U/L 35-104 [facility] Serum or plasma calcium ash urement (mass/volume)Ordered By: Margarito Huston on 07-25-2024 Calcium [Mass/Vol] 9.3 mg/dL 7.6-11.0 [facility] Serum or plasma urea nitroge n measurement (mass/volume)Ordered By: Margarito Huston on 07-25-2024 Urea nitrogen [Mass/Vol] 5 mg/dL 4-19 [facility] Sodium levelOrdered By: Placido Huston on 07-25-2024 Sodium [Moles/Vol] 136 mmol/L 133-145 [facility] Squamous epithelial cells de tection in urine sediment by light microscopyOrdered By: Margarito Huston on 07-25-2024 Epithelial cells.squamous LM Ql (Urine sed) 0-5 SEEN /hpf 5-10 [facility] Total proteinOrdered By: William Huston on 07-25-2024 Protein [Mass/Vol] 7.2 g/dL 5.9-8.4 [facility] Transvaginal w/Preg USon Transvaginal w/Preg US [facility] [address] [place], [place] [id number] Transvaginal w/Preg US MR#: [id number] Acct: [id number] Name: JEFF RUSHING Rep #: [id number] : 1995 F 29 From: Maru Huynh MD PCP: Care Physician,No Primary Status: REG ER Study: Transvaginal w/Preg US Date of Exam: 07/25/24 Exam# [id number] Ordering Dr: Margarito uHston DO EXAM: US , Transvaginal CLINICAL INDICATION: VAG BLEEDING TECHNIQUE: Real-time transvaginal obstetrical ultrasound of the maternal pelvis and a first trimester with image documentation. Transvaginal imaging was used for better evaluation of the fetus and adnexa. COMPARISON: No relevant prior studies available. FINDINGS: GESTATION: Gestational sac 2.1 cm. Yolk sac 0.3 cm. CRL 0.5 cm. heart tone 120 beats per minute. Gestational age 7 weeks and 0 day gestation. JYOTHI: JYOTHI 03/15/2025. PLACENTA/AMNIOTIC FLUID: Cannot be adequately evaluated due to the early gestational age. UTERUS/CERVIX: Possible cervical cardiac hemorrhage. No myometrial mass. The uterus measures 8.3 x 6.2 x 4.4 cm. OVARIES: 2.0 ovarian cysts on the right. No mass. The right ovary measures 3.9 x 3.5 x 2.8 cm. The left ovary measures 4.1 x 2.9 x 2.4 cm. FREE FLUID: No free fluid. US/Transvaginal w/Preg US IMPRESSION: Single live intrauterine . Reading Location: [facility] CC: Dr. Margarito Huston DO; No Primary Care Physician Block Handler: Signed Normal [facility] Urinalysis, Completeon 07-25 BACTERIA 2+ /hpf Normal None Seen [facility] Comment on above: Order Comment: CLEAN CATCH Performed By: #### L 400.0001 #### [facility] [address] [place], [address] EPI,SQUAMOUS 0-5 SEEN Normal 5-10 [facility] Comment on above: Order Comment: CLEAN CATCH Performed By: #### L 400.0001 #### [facility] [address] [place], [address] Mucus Ql (Urine sed) 1+ /hpf Normal [facility] Comment on above: Order Comment: CLEAN CATCH Performed By: #### L 400.0001 #### [facility] [address] [place], [address] RBC 0-5 SEEN Normal 0-5 [facility] Comment on above: Order Comment: CLEAN CATCH Performed By: #### L 400.0001 #### [facility] [address] [place], [address] WBC 0-5 SEEN Normal 0-5 [facility] Comment on above: Order Comment: CLEAN CATCH Performed By: #### L 400.0001 #### [facility] [address] [place], [place], [id number] Urine clarityOrdered By: William Huston on 07-25-2024 Clarity (U) Sl. Cloudy Clear [facility] Urine color determinationOrd ered By: Margarito Huston on 07-25-2024 Color (U) Yellow Yellow [facility] Urine cultureOrdered By: William Huston on 07-25-2024 Bacteria identified Cx Nom (U) Positive Abnormal [facility] Urine glucose detectionOrder ed By: Margarito Huston on 07-25-2024 Glucose Ql (U) Normal mg/dl Normal [facility] Urine leukocyte esterase det ection by dipstickOrdered By: Margarito Huston on 07-25-2024 Leukocyte esterase Test strip Ql (U) 25 /ul High Negative [facility] Urine pHOrdered By: Margarito latham on 07-25-2024 pH (U) 6.5 [pH] 5.0 - 8.0 [facility] Urine sediment bacteria coun t by microscopy (number/high power field)Ordered By: Margarito Huston on 07-25-2024 Bacteria LM.HPF (Urine sed) [#/Area] 2 /[HPF] None Seen [facility] Urine specific gravity measu rementOrdered By: Margarito Huston on 07-25-2024 Specific gravity (U) [Rel density] 1.015 1.002-1.030 [facility] Urine urobilinogen measureme ntOrdered By: Margarito Huston on 07-25-2024 Urobilinogen Ql (U) Normal mg/dl Normal [facility] White blood cell (WBC) count Ordered By: Margarito Huston on 07-25-2024 WBC (Bld) [#/Vol] 6.7 10*3/uL 4.4-11.0 [facility] White blood cell countOrdere d By: Margarito Huston on 07-25-2024 White blood cell count 0-5 SEEN /hpf 0-5 [facility] hCG Titer Quant., Serumon HCG QUANT. 31576 mIU/mL High <9 non-preg [facility] Comment on above: Result Comment: Gest ational Age 0.2-1 Week: 5-50 mIU/mL 1-2 Weeks: 50-500 mIU/mL 2-3 Weeks: 100-5000 mIU/mL 3-4 Weeks: 500-10,000 mIU/mL 4-5 Weeks:1000-50,000 mIU/mL 5-6 Weeks: 10,000-100,000 mIU/mL 6-8 Weeks: 15,000-200,000 mIU/mL 2-3 Months:10,000-100,000 mIU/mL Performed By: #### L 700.8000 #### [facility] [address] [place] [address], [id number] PROGESTERONE 4317on 07-22-19 25 PROGESTERONE 7.7 ng/mL Normal . [facility] Comment on above: Order Comment: N Result Comment: Foll icular phase 0.1 - 0.9 Luteal phase 1.8 - 23.9 Ovulation phase 0.1 - 12.0 First trimester 11.0 - 44.3 Second trimester 25.4 - 83.3 Third trimester 58.7 - 214.0 Postmenopausal 0.0 - 0.1 Performed at: [facility] [address] [id number] Tension Machine Operator: Juan M Nielsen PhD, Phone: [phone] Performed By: #### L 010.9933, L801.2600 #### [facility] [address] [place], [place], [address] Serum human chorionic gonado tropin detection for pregnancyOrdered By: Aaliyah Borrego on 07-21-2024 HCG ( [place]) [place] [address] mIU/mL High <9 [facility] Comment on above: Gestational Age0.2-1 Week: 5-50 mIU/mL1-2 Weeks: 50-500 mIU/mL2-3 Weeks: 100-5000 mIU/mL3-4 Weeks: 500-10,000 mIU/mL4-5 Weeks:1000-50,000 mIU/mL5-6 Weeks: 10,000-100,000 mIU/mL6-8 Weeks: 15,000-200,000 mIU/mL2-3 Months:10,000-100,000 mIU/mL hCG Titer Quant., Serumon HCG QUANT. 91106 mIU/mL High <9 non-preg [facility] Comment on above: Result Comment: Gest ational Age 0.2-1 Week: 5-50 mIU/mL 1-2 Weeks: 50-500 mIU/mL 2-3 Weeks: 100-5000 mIU/mL 3-4 Weeks: 500-10,000 mIU/mL 4-5 Weeks:1000-50,000 mIU/mL 5-6 Weeks: 10,000-100,000 mIU/mL 6-8 Weeks: 15,000-200,000 mIU/mL 2-3 Months:10,000-100,000 mIU/mL Performed By: #### L 4500.0100, L3100.8410, L3410.2000, L801.2600 #### [facility] [address] [place], [address] Serum human chorionic gonado tropin detection for pregnancyOrdered By: Aaliyah Borrego on 07-19-2024 HCG ( test) Ql 8841 mIU/mL High <9 [facility] Comment on above: Gestational Age0.2-1 Week: 5-50 mIU/mL1-2 Weeks: 50-500 mIU/mL2-3 Weeks: 100-5000 mIU/mL3-4 Weeks: 500-10,000 mIU/mL4-5 Weeks:1000-50,000 mIU/mL5-6 Weeks: 10,000-100,000 mIU/mL6-8 Weeks: 15,000-200,000 mIU/mL2-3 Months:10,000-100,000 mIU/mL Transvaginal w/Preg USon Transvaginal w/Preg US [facility] [address] [place] [address] Transvaginal w/Preg US MR#: [id number] Acct: [id number] Name: JEFF RUSHING Rep #: [id number] : 1995 F 29 From: Kwame lanier MD PCP: Care Physician,No Primary Status: REG CLI Study: Transvaginal w/Preg US Date of Exam: 07/19/24 Exam# [id number] Ordering Dr: Aaliyah Borrego CNM PROCEDURE: TRANSVAGINAL W/PREG US 07/19/2024 REASON FOR EXAM: SPOTTING TECHNIQUE: Transvaginal. COMPARISON: None FINDINGS: Comments: LMP: May 29, 2024. Number of Gestational Sacs: 1 Gestational Sac Shape: Normal Number of Fetuses: 1 Heart Rate: Not detected. (Average) Yolk Sac: Present and unremarkable. Placenta: Presently not well-visualized Amniotic Fluid Volume: Subjectively normal for gestational age. Uterine Abnormalities: Maternal uterus is unremarkable. Ovaries / Adnexa: There is a corpus luteum cyst in the right ovary measuring 2.2 cm x 2.2 cm x 1.8 cm. DIMENSIONS: Parameter Measurement / EGA Gestational Sac: 1.18 cm/6 weeks and 0 days. Yolk Sac: 1.9 mm/ ESTIMATED GESTATIONAL AGE: By Ultrasound: 6 weeks and 0 days By LMP: 7 weeks and 2 days ESTIMATED DATE OF DELIVERY: By Ultrasound: March 14, 2025 By LMP: March 05, 2025 US/Transvaginal w/Preg US IMPRESSION: Intrauterine gestation with a mean gestational age of 6 weeks. No pole is seen at this time. No detected cardiac activity. Corpus luteum cyst measuring 2.2 cm x 2.2 cm 1.8 cm seen in the right ovary. Reading Location: [id number] CC: SALLIE Borrego; No Primary Care Physician Block Handler: Signed Normal [facility] hCG Titer Quant., Serumon HCG QUANT. 8841 mIU/mL High <9 non-preg [facility] Comment on above: Result Comment: Gest ational Age 0.2-1 Week: 5-50 mIU/mL 1-2 Weeks: 50-500 mIU/mL 2-3 Weeks: 100-5000 mIU/mL 3-4 Weeks: 500-10,000 mIU/mL 4-5 Weeks:1000-50,000 mIU/mL 5-6 Weeks: 10,000-100,000 mIU/mL 6-8 Weeks: 15,000-200,000 mIU/mL 2-3 Months:10,000-100,000 mIU/mL Performed By: #### L 700.8000, L801.2600 #### [facility] [address] [place], [address] Laboratory - Chemistry and C hemistry - challengeOrdered By: Diana Soliman on 07-16-2024 HCG ( test) Ql (U) Positive [facility] Office Visit Reporton 2024 Office Visit Report [facility] [address] [place] [address] OFFICE VISIT Date of Service: 07/16/24 MR#: [id number] Acct: [id number] Patient: JEFF RUSHING Rep #: [id number] : 1995 Provider: Dr. Diana Morton DO Age/Sex: 29/F [place] [facility]: Signed Intake Vital Signs 10/17/23 10:44 07/16/24 14:24 Height 5 ft 8 in 5 ft 8 in Weight: 235 lb 8 oz BMI 35.8 BP 116/76 Intake Visit Reasons: PNOB/Confirmation of Beam Doffer Required: No Is patient in pain?: No Allergies Iodinated Contrast Media Allergy (Mild, Verified 08/03/24 14:52) Hives Medications ???Medication ???Instructions ???Recorded ???Confirmed ???Type progesterone micronized 200 mg 400 mg (2 x 200 mg) vaginal ONCE 0 07/06/24 08/03/24 Rx capsule (Prometrium) #60 caps aspirin 81 mg tablet,delayed 81 mg PO QDAY 07/16/24 08/03/24 Hi story release (Adult Low Dose Aspirin) multivit-min no.71-iron fum 28 cap PO 07/16/24 08/03/24 History mg-folate no.1 1 mg-dha 300 mg capsule (PNV-Arapaho) cephalexin 500 mg capsule 500 mg PO Q12H 5 days #10 caps 08/03/24 Rx ondansetron 4 mg disintegrating 4 mg PO Q6H PRN nausea and 5 08/03/24 Rx tablet vomiting #30 tabs Is last menstrual period known: Yes Last menstrual period: 05/29/24 Post menopausal: No Patient : Yes Current gender identity: female Nurse's Note: Pt here for PNOB. Office UPT: positive. Vitals WNL. PNOB questions completed. Problem list, allergies, and medications updated. 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, week miscarriage, APL neg in 2023 (4) Supervision of high-risk : Status: Acute Comment: , JYOTHI 03/05/25, LOIS Juárez (5) : Status: Acute Qualifiers: Weeks of gestation: 8 weeks Qualified Code(s): Z3A.08 - 8 weeks gestation of Comment: discussed NIPT Carrier testing-undecided (6) History of marijuana use: Status: Acute Comment: last used 4 yrs ago, discussed tox screen initial random (7) History of nicotine vaping: Status: Acute Comment: Quit 07/06/24 (8) Former smoker, stopped smoking in distant past: Status: Acute Comment: Quit 2021 (9) Anxiety: Status: Acute (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 (11) at early stage: Status: Acute (12) Bicornuate uterus: Status: Acute (13) Hemorrhagic cyst of ovary: Status: Acute (14) Vaginal discharge: Status: Acute (15) PCOS (polycystic ovarian syndrome): Status: Acute Comment: per OAR Letrozole 2.5mg 12/07 Orders: Orders CBC W/Diff, Automated 07/16/24 O09.90 - Supervision of high risk , unspecified, unspecified trimester Type Screen 07/16/24 O09.90 - Supervision of high risk , unspecified, unspecified trimester Rubella IgG 07/16/24 O09.90 - Supervision of high risk , unspecified, unspecified trimester Hepatitis C Antibody 07/16/24 O09.90 - Supervision of high risk , unspecified, unspecified trimester Hepatitis B Surface Antigen 07/16/24 O09.90 - Supervision of high risk , unspecified, unspecified trimester Culture, Urine 4 Weeks O.90 - Supervision of high risk , unspecified, unspecified trimester Syphilis Antibodies 07/16/24 O09.90 - Supervision of high risk , unspecified, unspecified trimester Chlamydia/GC PETER aptima 07/27/24 O09.90 - Supervision of high risk , unspecified, unspecified trimester HIV 07/16/24 O09.90 - Supervision of high risk , unspecified, unspecified trimester Hemoglobin A1c 07/16/24 E28.2 - Polycystic ovarian syndrome, O09.90 - Supervision of high risk , unspecified, unspecified trimester, O99.210 - Obesity complicating , unspecified trimester Urine Drug Screen 07/16/24 O09.90 - Supervision of high risk , unspecified, unspecified trimester POC Urine 07/16/24 N91.2 - Amenorrhea, unspecified 08/03/24 1508 Date Diana Vande Velde DO Cosigner Signature: Date (if applicable) CC: Normal [facility] ALLIED HEALTHon 07-15-2024 ALLIED HEALTH HNO ID: [id number] Author: SIMRAN RICKS RDMS Service: Radiology Author Type: Technologist Type: Allied Health Filed: 07/15/2024 14:30 Note Text: Radiology Service Progress Note PATIENT NAME: Jeff Rushing DATE OF SERVICE: July 15, 2024 TIME: 2:30 PM PATIENT IDENTITY VERIFICATION COMPLETED USING TWO (2) IDENTIFIERS: Name and Date of confirmed by patient verbally. FALL SCREENING: Has the patient had 2 falls in the last year or 1 fall with injury or currently using an Ambulatory Assistive Device (Walker, Cane, Wheelchair, Crutches, etc.)? No PATIENT GENDER DATA: Assigned female at . status: : Yes. Urinalysis hCG results are as follows: Positive status: NO. PATIENT RELEVANT IMPLANT DATA REVIEWED: Not Applicable PATIENT PRESENTS WITH AN IMPLANTABLE OR ATTACHED MATERIAL ENGINEER: No RADIOLOGY DEPARTMENT: Ultrasound PERIPHERAL IV DATA: Not applicable SIGNED BY: Simran Ricks RDMS July 15, 2024 2:30 PM Normal [facility] BETA HCG, QUANTITATIVE FOR Juan Diego Camacho 07-15-2024 HCG.beta subunit Qn 1851.0 m[IU]/mL High <5.0 [facility] Comment on above: Order Comment: Speci men Type: BLOOD SPECIMEN Ordering Facility: [facility] Address: [address] [place] [address] Result Comment: TI TITATIVE HCG NORMAL RANGES Weeks of Gestation (Weeks Since LMP) 3 Weeks (5.8-71.2 mIU/mL) 4 Weeks (9.5-750 mIU/mL) 5 Weeks (217-7138 mIU/mL) 6 Weeks (158-27703 mIU/mL) 7 Weeks (3697-900910 mIU/mL) 8 Weeks (51905-486270 mIU/mL) 9 Weeks (64101-033032 mIU/mL) 10 Weeks (92730-420462 mIU/mL) 12 Weeks (31557-573490 mIU/mL) Referenced to 4th IS of [facility] Performed By: #### H CGED, 05547-5 #### [facility] CLIA [id number] [address] [place] [address] [place] CBC W Auto Differential pane l (Bld)on 07-15-2024 Basophils (Bld) [#/Vol] 10*3/uL Normal <0.11 [facility] Comment on above: Order Comment: Speci men Type: BLOOD SPECIMEN Ordering Facility: [facility] Address: [address] [place] [address] Performed By: #### 5 7021-8 #### [facility] CLIA [id number] [address] [place] [address] [place] Basophils/100 WBC (Bld) 0.3 % Normal [facility] Comment on above: Order Comment: Speci men Type: BLOOD SPECIMEN Ordering Facility: [facility] Address: [address] [place] [address] Performed By: #### 5 7021-8 #### [facility] CLIA [id number] [address] [place] [address] [place] [facility] Differential cell count method Nom (Bld) Auto Normal [facility] Comment on above: Order Comment: Speci men Type: BLOOD SPECIMEN Ordering Facility: [facility] Address: [address] [place] [address] Performed By: #### 5 7021-8 #### [facility] CLIA [id number] [address] [place] [address] [place] Eosinophils (Bld) [#/Vol] 0.07 10*3/uL Normal <0.46 [facility] Comment on above: Order Comment: Speci men Type: BLOOD SPECIMEN Ordering Facility: [facility] Address: [address] [place] [address] Performed By: #### 5 7021-8 #### [facility] CLIA [id number] [address] [place] Eosinophils/100 WBC (Bld) 0.9 % Normal [facility] Comment on above: Order Comment: Speci men Type: BLOOD SPECIMEN Ordering Facility: [facility] Address: [address] [place] [address] Performed By: #### 5 7021-8 #### [facility] CLIA [id number] [address] Erythrocyte distribution width (RBC) [Ratio] 12.3 % Normal 11.5-15.0 [facility] Comment on above: Order Comment: Speci men Type: BLOOD SPECIMEN Ordering Facility: [facility] Address: [address] [place] [address] Performed By: #### 5 7021-8 #### [facility] CLIA [id number] [address] Hematocrit (Bld) [Volume fraction] 41.5 % Normal 36.0-46.0 [facility] Comment on above: Order Comment: Speci men Type: BLOOD SPECIMEN Ordering Facility: [facility] Address: [address] [place] [address] Performed By: #### 5 7021-8 #### [facility] CLIA [id number] [address] [place] Hemoglobin (Bld) [Mass/Vol] 14.1 g/dL Normal 11.5-15.5 [facility] Comment on above: Order Comment: Speci men Type: BLOOD SPECIMEN Ordering Facility: [facility] Address: [address] [place] [address] Performed By: #### 5 7021-8 #### [facility] CLIA [id number] [address] OF [facility] Immature granulocytes (Bld) [#/Vol] 10*3/uL Normal <0.10 [facility] Comment on above: Order Comment: Speci men Type: BLOOD SPECIMEN Ordering Facility: [facility] Address: [address] [place] [address] Performed By: #### 5 7021-8 #### [facility] CLIA [id number] [address] Immature granulocytes/100 WBC (Bld) 0.3 % Normal [facility] Comment on above: Order Comment: Speci men Type: BLOOD SPECIMEN Ordering Facility: [facility] Address: [address] [place] [address] Performed By: #### 5 7021-8 #### [facility] CLIA [id number] [address] Lymphocytes (Bld) [#/Vol] 2.43 10*3/uL Normal 1.00-4.00 [facility] Comment on above: Order Comment: Speci men Type: BLOOD SPECIMEN Ordering Facility: [facility] Address: [address] [place] [address] Performed By: #### 5 7021-8 #### [facility] CLIA [id number] [address] Lymphocytes/100 WBC (Bld) 32.8 % Normal [facility] Comment on above: Order Comment: Speci men Type: BLOOD SPECIMEN Ordering Facility: [facility] Address: [address] [place] [address] Performed By: #### 5 7021-8 #### [facility] CLIA [id number] [address] MCH (RBC) [Entitic mass] 29.0 pg Normal 26.0-34.0 [facility] Comment on above: Order Comment: Speci men Type: BLOOD SPECIMEN Ordering Facility: [facility] Address: [address] [place] [address] Performed By: #### 5 7021-8 #### [facility] CLIA [id number] [address] MCHC (RBC) [Mass/Vol] 34.0 g/dL Normal 30.5-36.0 [facility] Comment on above: Order Comment: Speci men Type: BLOOD SPECIMEN Ordering Facility: [facility] Address: [address] [place] [address] Performed By: #### 5 7021-8 #### [facility] CLIA [id number] [address] MCV (RBC) [Entitic vol] 85.2 fL Normal 80.0-100.0 [facility] Comment on above: Order Comment: Speci men Type: BLOOD SPECIMEN Ordering Facility: [facility] Address: [address] [place] [address] Performed By: #### 5 7021-8 #### [facility] CLIA [id number] [address] [place] [address] [place] Monocytes (Bld) [#/Vol] 0.39 10*3/uL Normal <0.87 [facility] Comment on above: Order Comment: Speci men Type: BLOOD SPECIMEN Ordering Facility: [facility] Address: [address] [place] [address] Performed By: #### 5 7021-8 #### [facility] CLIA [id number] [address] Monocytes/100 WBC (Bld) 5.3 % Normal [facility] Comment on above: Order Comment: Speci men Type: BLOOD SPECIMEN Ordering Facility: [facility] Address: [address] [place] [address] Performed By: #### 5 7021-8 #### [facility] CLIA [id number] [address] [place] [address] [place] Neutrophils (Bld) [#/Vol] 4.47 10*3/uL Normal 1.45-7.50 [facility] Comment on above: Order Comment: Speci men Type: BLOOD SPECIMEN Ordering Facility: [facility] Address: [address] [place] [address] Performed By: #### 5 7021-8 #### [facility] CLIA [id number] [address] [place] Neutrophils/100 WBC (Bld) 60.4 % Normal [facility] Comment on above: Order Comment: Speci men Type: BLOOD SPECIMEN Ordering Facility: [facility] Address: [address] [place] [address] Performed By: #### 5 7021-8 #### [facility] CLIA [id number] [address] [place] [address] [place] Nucleated RBC (Bld) [#/Vol] 10*3/uL Normal <0.01 [facility] Comment on above: Order Comment: Speci men Type: BLOOD SPECIMEN Ordering Facility: [facility] Address: [address] [place] [address] Performed By: #### 5 7021-8 #### [facility] CLIA [id number] [address] [place] Nucleated RBC/100 WBC (Bld) [Ratio] 0.0 /100 WBC Normal [facility] Comment on above: Order Comment: Speci men Type: BLOOD SPECIMEN Ordering Facility: [facility] Address: [address] [place] [address] Performed By: #### 5 7021-8 #### [facility] CLIA [id number] [address] [place] Platelet mean volume (Bld) [Entitic vol] 11.7 fL Normal 9.0-12.7 [facility] Comment on above: Order Comment: Speci men Type: BLOOD SPECIMEN Ordering Facility: [facility] Address: [address] [place] [address] Performed By: #### 5 7021-8 #### [facility] CLIA [id number] [address] [place] [address] [place] Platelets (Bld) [#/Vol] 221 10*3/uL Normal 150-400 [facility] Comment on above: Order Comment: Speci men Type: BLOOD SPECIMEN Ordering Facility: [facility] Address: [address] [place] [address] Performed By: #### 5 7021-8 #### [facility] CLIA [id number] [address] [place] [address] [place] RBC (Bld) [#/Vol] 4.87 10*6/uL Normal 3.90-5.20 [facility] Comment on above: Order Comment: Speci men Type: BLOOD SPECIMEN Ordering Facility: [facility] Address: [address] [place] [address] Performed By: #### 5 7021-8 #### [facility] CLIA [id number] [address] [place] WBC (Bld) [#/Vol] 7.40 10*3/uL Normal 3.70-11.00 [facility] Comment on above: Order Comment: Speci men Type: BLOOD SPECIMEN Ordering Facility: [facility] Address: [address] [place] [address] Performed By: #### 5 7021-8 #### [facility] CLIA [id number] [address] OF [facility] Comprehensive metabolic 2000 panelon 07-15-2024 Albumin [Mass/Vol] 4.2 g/dL Normal 3.9-4.9 [facility] Comment on above: Order Comment: Speci men Type: BLOOD SPECIMEN Ordering Facility: [facility] Address: [address] [place] [address] Performed By: #### H CGED, 09529-6 #### [facility] CLIA [id number] [address] [place] [facility] ALP [Catalytic activity/Vol] 67 U/L Normal 34-123 [facility] Comment on above: Order Comment: Speci men Type: BLOOD SPECIMEN Ordering Facility: [facility] Address: [address] [place] [address] Performed By: #### H CGED, 81642-8 #### [facility] CLIA [id number] [address] ALT [Catalytic activity/Vol] 28 U/L Normal 7-38 [facility] Comment on above: Order Comment: Speci men Type: BLOOD SPECIMEN Ordering Facility: [facility] Address: [address] [place] [address] Performed By: #### H CGED, 62174-3 #### [facility] CLIA [id number] [address] Anion gap [Moles/Vol] 12 mmol/L Normal 8-15 [facility] Comment on above: Order Comment: Speci men Type: BLOOD SPECIMEN Ordering Facility: [facility] Address: [address] [place] [address] Performed By: #### H CGED, 15761-3 #### [facility] CLIA [id number] [address] [place] AST [Catalytic activity/Vol] 22 U/L Normal 13-35 [facility] Comment on above: Order Comment: Speci men Type: BLOOD SPECIMEN Ordering Facility: [facility] Address: [address] [place] [address] Performed By: #### H CINDYED, 15900-4 #### [facility] CLIA [id number] [address] [place] [address] [place] Bilirubin [Mass/Vol] 0.3 mg/dL Normal 0.2-1.3 [facility] Comment on above: Order Comment: Speci men Type: BLOOD SPECIMEN Ordering Facility: [facility] Address: [address] [place] [address] Performed By: #### H CINDYED, 82062-3 #### [facility] CLIA [id number] [address] [place] [address] [place] Calcium [Mass/Vol] 8.8 mg/dL Normal 8.5-10.2 [facility] Comment on above: Order Comment: Speci men Type: BLOOD SPECIMEN Ordering Facility: [facility] Address: [address] [place] [address] Performed By: #### H CINDYED, 80620-3 #### [facility] CLIA [id number] [address] [place] [address] [place] Chloride [Moles/Vol] 101 mmol/L Normal 98-107 [facility] Comment on above: Order Comment: Speci men Type: BLOOD SPECIMEN Ordering Facility: [facility] Address: [address] [place] [address] Performed By: #### H CGED, 88359-2 #### [facility] CLIA [id number] [address] [place] [address] [place] CO2 [Moles/Vol] 23 mmol/L Normal 22-30 [facility] Comment on above: Order Comment: Speci men Type: BLOOD SPECIMEN Ordering Facility: [facility] Address: [address] [place] [address] Performed By: #### H CGED, 09155-2 #### [facility] CLIA [id number] [address] [place] [address] [place] Creatinine [Mass/Vol] 0.52 mg/dL Low 0.58-0.96 [facility] Comment on above: Order Comment: Khadar dye Type: BLOOD SPECIMEN Ordering Facility: [facility] Address: [address] [place] [address] Performed By: #### H CGED, 61211-1 #### [facility] CLIA [id number] [address] [place] [address] [place] [facility] Creatinine and Glomerular filtration rate.predicted panel (S/P/Bld) 131 mL/min/1.73m??? Normal >=60 [facility] Comment on above: Order Comment: Khadar dye Type: BLOOD SPECIMEN Ordering Facility: [facility] Address: [address] [place] [address] Result Comment: Thu mated Glomerular Filtration Rate (eGFR) is calculated using the 2020 CKD-EPI creatinine equation. This equation utilizes serum creatinine, sex, and age as parameters. The creatinine assay has traceable calibration to isotope dilution-mass spectrometry. Refer to KDIGO guidelines for clinical interpretation. In patients with unstable renal function, e.g. those with acute kidney injury, the eGFR may not accurately reflect actual GFR. Performed By: #### H CGED, 51548-8 #### [facility] CLIA [id number] [address] [place] [address] [place] Glucose [Mass/Vol] 127 mg/dL High 74-99 [facility] Comment on above: Order Comment: Khadar dye Type: BLOOD SPECIMEN Ordering Facility: [facility] Address: [address] [place] [address] Result Comment: The [place] [employer] (ADA) provides guidance for cutoff values for fasting glucose and random glucose. The ADA defines fasting as no caloric intake for at least 8 hours. Fasting plasma glucose results between 100 to 125 mg/dL indicate increased risk for diabetes (prediabetes). Fasting plasma glucose results greater than or equal to 126 mg/dL meet the criteria for diagnosis of diabetes. In the absence of unequivocal hyperglycemia, results should be confirmed by repeat testing. In a patient with classic symptoms of hyperglycemia or hyperglycemic crisis, random plasma glucose results greater than or equal to 200 mg/dL meet the criteria for diagnosis of diabetes. Reference: Standards of Medical Care in Diabetes 2016, [place] [employer]. Diabetes Care. 2016.39(Suppl 1). Performed By: #### H CGED, 69004-1 #### [facility] CLIA [id number] [address] [place] [address] [place] Potassium [Moles/Vol] 3.7 mmol/L Normal 3.7-5.1 [facility] Comment on above: Order Comment: Speci men Type: BLOOD SPECIMEN Ordering Facility: [facility] Address: [address] [place] [address] Performed By: #### H CGED, 05383-9 #### [facility] CLIA [id number] [address] [place] [address] [place] Protein [Mass/Vol] 6.9 g/dL Normal 6.3-8.0 [facility] Comment on above: Order Comment: Speci men Type: BLOOD SPECIMEN Ordering Facility: [facility] Address: [address] [place] [address] Performed By: #### H CGED, 56716-6 #### [facility] CLIA [id number] [address] [place] [address] [place] Sodium [Moles/Vol] 136 mmol/L Normal 136-144 [facility] Comment on above: Order Comment: Speci men Type: BLOOD SPECIMEN Ordering Facility: [facility] Address: [address] [place] [address] Performed By: #### H CGED, 63880-9 #### [facility] CLIA [id number] [address] [place] [address] [place] Urea nitrogen [Mass/Vol] 5 mg/dL Low 7-21 [facility] Comment on above: Order Comment: Speci men Type: BLOOD SPECIMEN Ordering Facility: [facility] Address: [address] [place] [address] Performed By: #### H CGED, 46104-5 #### [facility] CLIA [id number] [address] [place] [address] [place] ED NOTEon 07-15-2024 ED NOTE HNO ID: [id number] Author: ATIF RANDHAWA RN Service: ? Author Type: Registered Nurse Type: ED Notes Filed: 07/15/2024 15:32 Note Text: Ultrasound brought over cd disc. [facility] ED NOTE HNO ID: [id number] Author: ATIF RANDHAWA RN Service: ? 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 Pt in rm 10. Work excuse provided to return tomorrow . [facility] ED NOTE HNO ID: [id number] Author: ATIF RANDHAWA RN Service: ? Author Type: Registered Nurse Type: ED Notes Filed: 07/15/2024 15:29 Note Text: Denies vag bleed or discharge. [facility] ED PROV NOTEon 07-15-2024 ED PROV NOTE HNO ID: [id number] Author: MEGHNA GARCIA MD Service: ? Author Type: Physician Type: ED Provider Notes Filed: 07/15/2024 18:11 Note Text: ED Provider Note Patient Name: Jeff Rushing : 1995 SERVICE DATE: 07/15/24 History Patient presents with: Pelvic Pain: INTERMITTENT, RIGHT SIDED PELVIC PAIN X 2 DAYS, DENIES BLEEDING/DISCHARGE. G4, P0, 3 AB. 29-year-old female presents to the emergency department with right lower quadrant abdominal pain that is occurred intermittently for the last 2 days. She is currently [id number]. She reports LMP May 2024 but thinks she ovulated a few weeks later than normal based on her testing. She has had no bleeding or discharge. No fevers or chills. Pain has been intermittent lasting a second or two sharp stabbing in nature and resolves spontaneously. Today it has been frequent and she has some intermittent throbbing. History provided by: Patient sluice tender used: No History reviewed. No pertinent past medical history. No past surgical history on file. FAMILY HISTORY Problem Relation Age of Onset Diabetes Father Hyperlipidemia Father Social History Tobacco Use Smoking status: Former Smokeless tobacco: Never Vaping Use Vaping status: Never Used Substance and Sexual Activity Alcohol use: Not Currently Drug use: Not Currently Sexual activity: Not on file ALLERGIES Allergen Reactions Contrast Dye [Gadol* Hives Review of Systems Constitutional: Negative for chills and fever. HENT: Negative for congestion and sore throat. Eyes: Negative. Respiratory: Negative for cough and shortness of breath. Cardiovascular: Negative for chest pain and palpitations. Gastrointestinal: Negative for abdominal pain and vomiting. Endocrine: Negative. Genitourinary: Positive for pelvic pain. Negative for dysuria and frequency. Musculoskeletal: Negative for arthralgias and myalgias. Skin: Negative for rash and wound. Allergic/Immunologi c: Negative. Neurological: Negative for dizziness and syncope. Psychiatric/Behavio ral: Negative. Physical Exam Vitals [07/15/24 1317] BP Pulse Temp Temp src Resp SpO2 Weight Height 143/85 (!) 117 36.6 ?C (97.9 ?F) Temporal 20 97 % 104.3 kg (230 lb) -- Physical Exam Vitals and nursing note reviewed. Constitutional: General: She is not in acute distress. Appearance: Normal appearance. She is not toxic-appearing. HENT: Head: Normocephalic and atraumatic. Cardiovascular: Rate and Rhythm: Normal rate and regular rhythm. Pulses: Normal pulses. Pulmonary: Effort: Pulmonary effort is normal. Breath sounds: Normal breath sounds. No wheezing, rhonchi or rales. Abdominal: General: Bowel sounds are normal. Palpations: Abdomen is soft. Tenderness: There is no abdominal tenderness. Musculoskeletal: Legs: Skin: General: Skin is warm. Capillary Refill: Capillary refill takes less than 2 seconds. Neurological: Mental Status: She is alert and oriented to person, place, and time. Psychiatric: Mood and Affect: Mood normal. Behavior: Behavior normal. Behavior is cooperative. Diagnostic Testing ED Labs Ordered and Reviewed COMPREHENSIVE METABOLIC PANEL - Abnormal; Notable for the following components: Result Value Ref Range Glucose 127 (*) 74 - 99 mg/dL BUN 5 (*) 7 - 21 mg/dL Creatinine 0.52 (*) 0.58 - 0.96 mg/dL All other components within normal limits URINALYSIS (WITH MICROSCOPIC) WITH CULTURE IF INDICATED - Abnormal; Notable for the following components: Clarity Slightly Cloudy (*) Clear Specific Hurley, Ur >=1.030 (*) 1.005 - 1.030 Bacteria Few (*) None Seen /HPF All other components within normal limits BETA HCG, QUANTITATIVE FOR ED - Abnormal; Notable for the following components: Beta HCG, Quantitative For ED Use 1,851.0 (*) <5.0 mIU/mL All other components within normal limits COMPLETE BLOOD COUNT AND DIFFERENTIAL TYPE + SCREEN Procedures ED Course / Clinical Impression ED Course as of 07/15/24 1516 Others' Documentation Kendy July 15, 2024 1502 Beta HCG, Quantitative For ED Use(!): 1,851.0 [MU] 1502 BETA HCG, QUANTITATIVE FOR ED(!): Beta HCG, Quantitative For ED Use 1,851.0(!) [MU] ED Course User Index [MU] Meghna Garcia MD Clinical Impressions as of 07/15/24 1516 Less than 8 weeks gestation of (HCC) RLQ abdominal pain MDM / Disposition / Plan Vital signs, triage records and nursing notes were reviewed and incorporated. Patient is a 29 year old female who presents today with RLQ abdominal pain. Physical exam reveals non-toxic appearing female, AANDOX3, neurologically intact, breathing is unlabored, no use of accessory muscles. Heart rate and rhythm are regular. Lungs are clear. Abdomen is soft, nondistended, nontender. . She is tachycardic although reports she just feels anxious otherwise vital signs are stable on initial exam.Ordered and reviewed labwork with findings of (more content not included)... Normal [facility] ED Triage Noteon 07-15-2024 ED Triage Note HNO ID: [id number] Author: DOMENICO TORRES MD Service: ? Author Type: Physician Type: ED Triage Notes Filed: 07/15/2024 13:25 Note Text: ED INTAKE NOTE Patient Name: Jeff Rushing Service Date: 07/15/24 BRIEF HPI: This is a 29 year old female who presents to the ED with: Approximately 7 weeks and intermittent right sided pelvic pain for 2 days. Denies bleeding or discharge. BRIEF EXAM: NAD INITIAL WORKUP AND DECISION MAKING: Orders Placed This Encounter US PREG TRANSABD <14 WEEKS LTD US PREG TRANSVAG <14 WEEKS CBC + DIFF COMP METABOLIC PANEL (BMP+LFT) Urinalysis w Microscopic, reflex Culture BETA HCG, QUANTITATIVE FOR ED Provider examination performed via virtual platform with assistance from bedside clinician. SIGNATURE: Domenico Torres MD Further triage/room assignment per nursing Limited role in this case performing a screening of the patient in triage Further work up, treatment, follow up on testing ordered from triage, further testing, care, disposition, and final MDM per downstream emergency provider team Please see downstream ED providers's notation for full HnP and MDM [facility] TYPE + SCREEN PRENATALon ABO O [facility] Comment on above: Order Comment: Speci men Type: BLOOD SPECIMEN Ordering Facility: [facility] Address: [address] [place] [address] Performed By: #### H CGED, 14460-2 #### [facility] CLIA [id number] [address] Rh Nom (Bld) Positive [facility] Comment on above: Order Comment: Speci men Type: BLOOD SPECIMEN Ordering Facility: [facility] Address: [address] [place] [address] Performed By: #### H CGED, 15566-9 #### [facility] CLIA [id number] [address] TYPE AND SCREEN EXPIRATION 07/18/2024 23:59 [facility] Comment on above: Order Comment: Speci men Type: BLOOD SPECIMEN Ordering Facility: [facility] Address: [address] [place] [address] Performed By: #### H CGED, 76043-8 #### [facility] CLIA [id number] [address] US PREG TRANSABD <14 WKS LTD on 07-15-2024 US PREG TRANSABD <14 WKS LTD * * *Final Report* * * DATE OF EXAM: Jul 15 2024 2:35PM MDU 1035 - US PREG TRANSABD <14 WKS LTD / PROCEDURE REASON: Pelvic pain, positive beta-HCG, cell builder etiology suspected * * * * Physician Interpretation * * * * EXAMINATION: FIRST TRIMESTER TRANSVAGINAL AND TRANSABDOMINAL PELVIC ULTRASOUND CLINICAL HISTORY: Intermittent right pelvic pain. LMP 05/29/2024 (6+5). beta HCG 1851. History of PCOS. TECHNIQUE: Sonography of the pelvis was performed by transabdominal and transvaginal techniques. Images were obtained and stored in a permanent archive. COMPARISON: None. RESULT: Uterus: - Orientation: Anteverted - Size: 8.0 x 5.8 x 3.9 cm - Myometrium: Homogeneous echogenicity { If leiomyomas present give index lesion size, location etc here} Cervix: Closed with no funneling. 3.2 cm in length. Endometrium: Gestation: - Definitive gestational sac: Present - Gestational sac location: Normal location within the upper 2/3 of the uterine cavity - Mean Sac Diameter: 0.43 cm, corresponding gestational age 5 week 0 days - Amnion: Not identified - Embryo: None identified Subgestational hematoma: Absent Right ovary: 4.5 x 4.2 x 2.3 cm - Normal sonographic appearance with physiologic follicles and a corpus luteum. Left ovary: 4.0 x 2.9 x 2.4 cm - Normal sonographic appearance with physiologic follicles. Pelvis free fluid: None Impression: Single intrauterine gestational sac compatible with early . Estimated Gestational Age: 5 weeks, 0 days by mean gestational sac diameter. Block Handler: YUNG Transcribe Date/Time: Jul 15 2024 2:38P Dictated by : PAPITO OWENS MD This examination was interpreted and the report reviewed and electronically signed by: PAPITO OWENS MD on Jul 15 2024 2:49PM EST [id number] Normal [facility] US PREG TRANSVAG <14 WEEKSon 07-15-2024 US PREG TRANSVAG <14 WEEKS * * *Final Report* * * DATE OF EXAM: Jul 15 2024 2:35PM MDU 1034 - US PREG TRANSVAG <14 WEEKS / PROCEDURE REASON: Pelvic pain, positive beta-HCG, cell builder etiology suspected * * * * Physician Interpretation * * * * EXAMINATION: FIRST TRIMESTER TRANSVAGINAL AND TRANSABDOMINAL PELVIC ULTRASOUND CLINICAL HISTORY: Intermittent right pelvic pain. LMP 05/29/2024 (6+5). beta HCG 1851. History of PCOS. TECHNIQUE: Sonography of the pelvis was performed by transabdominal and transvaginal techniques. Images were obtained and stored in a permanent archive. COMPARISON: None. RESULT: Uterus: - Orientation: Anteverted - Size: 8.0 x 5.8 x 3.9 cm - Myometrium: Homogeneous echogenicity { If leiomyomas present give index lesion size, location etc here} Cervix: Closed with no funneling. 3.2 cm in length. Endometrium: Gestation: - Definitive gestational sac: Present - Gestational sac location: Normal location within the upper 2/3 of the uterine cavity - Mean Sac Diameter: 0.43 cm, corresponding gestational age 5 week 0 days - Amnion: Not identified - Embryo: None identified Subgestational hematoma: Absent Right ovary: 4.5 x 4.2 x 2.3 cm - Normal sonographic appearance with physiologic follicles and a corpus luteum. Left ovary: 4.0 x 2.9 x 2.4 cm - Normal sonographic appearance with physiologic follicles. Pelvis free fluid: None Impression: Single intrauterine gestational sac compatible with early . Estimated Gestational Age: 5 weeks, 0 days by mean gestational sac diameter. Block Handler: PSCB Transcribe Date/Time: Jul 15 2024 2:38P Dictated by : PAPITO OWENS MD This examination was interpreted and the report reviewed and electronically signed by: PAPITO OWENS MD on Jul 15 2024 2:49PM EST [id number] Normal [facility] Urinalysis complete panel (U )on 07-15-2024 Bacteria LM.HPF (Urine sed) [#/Area] Few Abnormal None Seen [facility] Comment on above: Order Comment: Speci men Type: URINE SPECIMEN Ordering Facility: [facility] Address: [address] [place] [address] Performed By: #### 2 4356-8 #### [facility] CLIA [id number] [address] [place] Bilirubin Ql (U) Negative Normal Negative [facility] Comment on above: Order Comment: Speci men Type: URINE SPECIMEN Ordering Facility: [facility] Address: [address] [place] [address] Performed By: #### 2 4356-8 #### [facility] CLIA [id number] [address] Clarity (Unsp spec) Slightly Cloudy Abnormal Clear [facility] Comment on above: Order Comment: Speci men Type: URINE SPECIMEN Ordering Facility: [facility] Address: [address] [place] [address] Performed By: #### 2 4356-8 #### [facility] CLIA [id number] [address] [place] [address] [place] Color (U) Yellow Normal Yellow [facility] Comment on above: Order Comment: Speci men Type: URINE SPECIMEN Ordering Facility: [facility] Address: [address] [place] [address] Performed By: #### 2 4356-8 #### [facility] CLIA [id number] [address] [place] [address] [place] Epithelial cells LM.HPF (Urine sed) [#/Area] Moderate Normal [facility] Comment on above: Order Comment: Speci men Type: URINE SPECIMEN Ordering Facility: [facility] Address: [address] [place] [address] Performed By: #### 2 4356-8 #### [facility] CLIA [id number] [address] [place] Glucose Test strip (U) [Mass/Vol] Negative Normal Negative [facility] Comment on above: Order Comment: Speci men Type: URINE SPECIMEN Ordering Facility: [facility] Address: [address] [place] [address] Performed By: #### 2 4356-8 #### [facility] CLIA [id number] [address] [place] [address] [place] Hemoglobin Ql (U) Negative Normal Negative [facility] Comment on above: Order Comment: Speci men Type: URINE SPECIMEN Ordering Facility: [facility] Address: [address] [place] [address] Performed By: #### 2 4356-8 #### [facility] CLIA [id number] [address] [place] [address] [place] Ketones Ql (U) Negative Normal Negative [facility] Comment on above: Order Comment: Speci men Type: URINE SPECIMEN Ordering Facility: [facility] Address: [address] [place] [address] Performed By: #### 2 4356-8 #### [facility] CLIA [id number] [address] [place] [address] [place] Leukocyte esterase Test strip Ql (U) Negative Normal Negative [facility] Comment on above: Order Comment: Speci men Type: URINE SPECIMEN Ordering Facility: [facility] Address: [address] [place] [address] Performed By: #### 2 4356-8 #### [facility] CLIA [id number] [address] [place] [address] [place] Nitrite Ql (U) Negative Normal Negative [facility] Comment on above: Order Comment: Speci men Type: URINE SPECIMEN Ordering Facility: [facility] Address: [address] [place] [address] Performed By: #### 2 4356-8 #### [facility] CLIA [id number] [address] [place] [address] [place] pH (U) 6.0 [pH] Normal 5.0-8.0 [facility] Comment on above: Order Comment: Speci men Type: URINE SPECIMEN Ordering Facility: [facility] Address: [address] [place] [address] Performed By: #### 2 4356-8 #### [facility] CLIA [id number] [address] [place] [address] [place] Protein (U) [Mass/Vol] Negative Normal Negative [facility] Comment on above: Order Comment: Speci men Type: URINE SPECIMEN Ordering Facility: [facility] Address: [address] [place] [address] Performed By: #### 2 4356-8 #### [facility] CLIA [id number] [address] [place] RBC LM.HPF (Urine sed) [#/Area] 0-3 /HPF Normal 0-3 /HPF [facility] Comment on above: Order Comment: Speci men Type: URINE SPECIMEN Ordering Facility: [facility] Address: [address] [place] [address] Performed By: #### 2 4356-8 #### [facility] CLIA [id number] [address] [place] Specific gravity (U) [Rel density] >=1.030 High 1.005-1.030 [facility] Comment on above: Order Comment: Speci men Type: URINE SPECIMEN Ordering Facility: [facility] Address: [address] [place] [address] Performed By: #### 2 4356-8 #### [facility] CLIA [id number] [address] [place] [address] [place] Urobilinogen Ql (U) 0.2 EU/dL Normal 0.2-1.0 EU/dL [facility] Comment on above: Order Comment: Speci men Type: URINE SPECIMEN Ordering Facility: [facility] Address: [address] [place] [address] Performed By: #### 2 4356-8 #### [facility] CLIA [id number] [address] [place] [address] [place] WBC LM.HPF (Urine sed) [#/Area] 0-5 /HPF Normal 0-5 /HPF [facility] Comment on above: Order Comment: Speci men Type: URINE SPECIMEN Ordering Facility: [facility] Address: [address] [place] [address] Performed By: #### 2 4356-8 #### [facility] CLIA [id number] [address] [place] Serum human chorionic gonado tropin detection for pregnancyOrdered By: Aaliyah Borrego on 07-08-2024 HCG ( test) Ql 83 mIU/mL High <9 [facility] Comment on above: Gestational Age0.2-1 Week: 5-50 mIU/mL1-2 Weeks: 50-500 mIU/mL2-3 Weeks: 100-5000 mIU/mL3-4 Weeks: 500-10,000 mIU/mL4-5 Weeks:1000-50,000 mIU/mL5-6 Weeks: 10,000-100,000 mIU/mL6-8 Weeks: 15,000-200,000 mIU/mL2-3 Months:10,000-100,000 mIU/mL hCG Titer Quant., Serumon HCG QUANT. 83 mIU/mL High <9 non-preg [facility] Comment on above: Result Comment: Gest ational Age 0.2-1 Week: 5-50 mIU/mL 1-2 Weeks: 50-500 mIU/mL 2-3 Weeks: 100-5000 mIU/mL 3-4 Weeks: 500-10,000 mIU/mL 4-5 Weeks:1000-50,000 mIU/mL 5-6 Weeks: 10,000-100,000 mIU/mL 6-8 Weeks: 15,000-200,000 mIU/mL 2-3 Months:10,000-100,000 mIU/mL Performed By: #### L 4500.0100, L3100.8410, L3410.1999, L801.2600 #### [facility] [address] [place], [address] Serum human chorionic gonado tropin detection for pregnancyOrdered By: Aaliyah Borrego on 07-06-2024 HCG ( test) Ql 36 mIU/mL High <9 [facility] Comment on above: Gestational Age0.2-1 Week: 5-50 mIU/mL1-2 Weeks: 50-500 mIU/mL2-3 Weeks: 100-5000 mIU/mL3-4 Weeks: 500-10,000 mIU/mL4-5 Weeks:1000-50,000 mIU/mL5-6 Weeks: 10,000-100,000 mIU/mL6-8 Weeks: 15,000-200,000 mIU/mL2-3 Months:10,000-100,000 mIU/mL hCG Titer Quant., Serumon HCG QUANT. 36 mIU/mL High <9 non-preg [facility] Comment on above: Result Comment: Gest ational Age 0.2-1 Week: 5-50 mIU/mL 1-2 Weeks: 50-500 mIU/mL 2-3 Weeks: 100-5000 mIU/mL 3-4 Weeks: 500-10,000 mIU/mL 4-5 Weeks:1000-50,000 mIU/mL 5-6 Weeks: 10,000-100,000 mIU/mL 6-8 Weeks: 15,000-200,000 mIU/mL 2-3 Months:10,000-100,000 mIU/mL Performed By: #### L 4500.0100, L3100.8410, L3410.2000, L801.2600 #### [facility] [address] [place], [address] Ear Cerumen Removalon 2024 BIPIN Estrada 04/12/2024 9:40 AM Ear Cerumen Removal Date/Time: 04/12/2024 9:00 AM Performed by: BIPIN Estrada Authorized by: BIPIN Estrada [facility] Work Phone: [facility] Work Phone: HCG ( test) Ql (U)o n 04-12-2024 Interpretation and review of laboratory results Normal [facility] Work Phone: Preg Test, Ur Negative Negative [facility] Work Phone: [facility] Work Phone: POCT Covid-19 Rapid Antigeno n 04-12-2024 SARS-CoV-2 (COVID-19) Ag IA.rapid Ql (Resp) Positive Abnormal Presumptive negative test for SARS-CoV-2 (no antigen detected) [facility] Work Phone: POCT Influenza A/B manually resultedon 04-12-2024 Interpretation and review of laboratory results Normal [facility] Work Phone: POC Rapid Influenza A Negative Negative [facility] Work Phone: POC Rapid Influenza B Negative Negative [facility] Work Phone: [facility] Work Phone: SARS-CoV-2 (COVID-19) Ag IA. rapid Ql (Resp)on 04-12-2024 Interpretation and review of laboratory results Abnormal [facility] Work Phone: [facility] Work Phone: XR Chest 2 Viewson No active disease in the chest identified. MACRO: None Signed by: Altaf Grullon 04/12/2024 9:10 AM Dictation workstation: [id number] MMODAL Interpreted By: Altaf Grullon, STUDY: XR CHEST 2 VIEWS; 04/12/2024 9:06 am INDICATION: Signs/Symptoms:coug h. COMPARISON: None. ACCESSION NUMBER(S): [id number] ORDERING CLINICIAN: DOMENICO LONG FINDINGS: The lungs are clear without pleural effusion. Normal heart size, mediastinum, ya, and pulmonary vasculature. MMODAL Altaf Grullon MD - 04/12/2024 Interpreted By: Altaf Grullon, STUDY: XR CHEST 2 VIEWS; 04/12/2024 9:06 am INDICATION: Signs/Symptoms:coug h. COMPARISON: None. ACCESSION NUMBER(S): [id number] ORDERING CLINICIAN: DOMENICO LONG FINDINGS: The lungs are clear without pleural effusion. Normal heart size, mediastinum, ya, and pulmonary vasculature. IMPRESSION: No active disease in the chest identified. MACRO: None Signed by: Altaf Grullon 04/12/2024 9:10 AM Dictation workstation: [id number] [facility] Work Phone: Radiology Study observation (narrative) [facility] Work Phone: XR Chest 2 ViewsOrdered By: Altaf Grullon on 04-12-2024 [facility] Work Phone: PROGESTERONE 4317on 03-03- 24 PROGESTERONE 15.0 ng/mL Normal . [facility] Comment on above: Order Comment: N Result Comment: Foll icular phase 0.1 - 0.9 Luteal phase 1.8 - 23.9 Ovulation phase 0.1 - 12.0 First trimester 11.0 - 44.3 Second trimester 25.4 - 83.3 Third trimester 58.7 - 214.0 Postmenopausal 0.0 - 0.1 Performed at: [address] [id number] Tension Machine Operator: Juan M Nielsen PhD, Phone: [phone] Performed By: #### L 0098.5510, I4984.7909, M1140.2000, G404.8808 #### [facility] [address] [place], [place], [address] PROGESTERONE 4317on 02-03-20 24 PROGESTERONE 17.6 ng/mL Normal . [facility] Comment on above: Order Comment: N day 21 [id number] Result Comment: Foll icular phase 0.1 - 0.9 Luteal phase 1.8 - 23.9 Ovulation phase 0.1 - 12.0 First trimester 11.0 - 44.3 Second trimester 25.4 - 83.3 Third trimester 58.7 - 214.0 Postmenopausal 0.0 - 0.1 Performed at: [address] [id number] Tension Machine Operator: Juan M Nielsen PhD, Phone: [phone] Performed By: #### L 4500.0100, L3100.3627, L3650.2184, L057.1246 #### [facility] [address] [place], [place], [id number] PROGESTERONE 4317on 01-03-20 24 PROGESTERONE 21.8 ng/mL Normal . [facility] Comment on above: Order Comment: N 21 day Result Comment: Foll icular phase 0.1 - 0.9 Luteal phase 1.8 - 23.9 Ovulation phase 0.1 - 12.0 First trimester 11.0 - 44.3 Second trimester 25.4 - 83.3 Third trimester 58.7 - 214.0 Postmenopausal 0.0 - 0.1 Performed at: [address] [id number] Tension Machine Operator: Juan M Nielsen PhD, Phone: [phone] Performed By: #### L 787.5827 #### [facility] [address] [place], [place], [address] PROGESTERONE 4317on 12-06-19 24 PROGESTERONE 12.1 ng/mL Normal . [facility] Comment on above: Order Comment: N 21 day progesterone Result Comment: Foll icular phase 0.1 - 0.9 Luteal phase 1.8 - 23.9 Ovulation phase 0.1 - 12.0 First trimester 11.0 - 44.3 Second trimester 25.4 - 83.3 Third trimester 58.7 - 214.0 Postmenopausal 0.0 - 0.1 Performed at: [address] [id number] Tension Machine Operator: Juan M Nielsen PhD, Phone: [phone] Performed By: #### L 459.4982 #### [facility] [address] [place], [address] Anticardiolipin IgG, IgMon 0 11-03-2023 Anticardio.IgG 9 GPL U/mL Normal 0-14 [facility] Comment on above: Result Comment: Nega tive: <15 Indeterminate: 15 - 20 Low-Med Positive: >20 - 80 High Positive: >80 Performed By: #### L 4500.0100, L3100.8410, L3410.2000, L987.2053 #### [facility] [address] [place], [address] Anticardio.IgM < 9 Normal 0-12 [facility] Comment on above: Result Comment: Nega tive: <13 Indeterminate: 13 - 20 Low-Med Positive: >20 - 80 High Positive: >80 Performed at: [address] [id number] Tension Machine Operator: Cait Reyes MD, Phone: [phone] Performed at: [address] [id number] Tension Machine Operator: Juan M Nielsen PhD, Phone: [phone] Performed By: #### L 4500.0100, L3100.8410, L3410.2000, L805.2602 #### [facility] [address] [place], [place], [address] Beta-2 Glycoprot IgG, A, 11-03-2023 B2 GLYCO I IGA <9 Normal 0-25 [facility] Comment on above: Result Comment: Resu lt Units: GPI IgA units The reference interval reflects a 3SD or 99th percentile interval, which is thought to represent a potentially clinically significant result in accordance with the International Consensus Statement on the classification criteria for definitive antiphospholipid syndrome (APS). J Thromb Haem 2006;4:295-306. Performed By: #### L 4500.0100, L3100.8410, L3410.2000, L801.2600 #### [facility] [address] [place], [address] B2 GLYCO I IGG <9 Normal 0-20 [facility] Comment on above: Result Comment: Resu lt Units: GPI IgG units The reference interval reflects a 3SD or 99th percentile interval, which is thought to represent a potentially clinically significant result in accordance with the International Consensus Statement on the classification criteria for definitive antiphospholipid syndrome (APS). J Thromb Haem 2006;4:295-306. Performed By: #### L 4500.0100, L3100.8410, L3410.2000, L801.2600 #### [facility] [address] [place], [address] B2 GLYCO I IGM <9 Normal 0-32 [facility] Comment on above: Result Comment: Resu lt Units: GPI IgM units The reference interval reflects a 3SD or 99th percentile interval, which is thought to represent a potentially clinically significant result in accordance with the International Consensus Statement on the classification criteria for definitive antiphospholipid syndrome (APS). J Thromb Haem 2006;4:295-306. Performed By: #### L 4500.0100, L3100.8410, L3410.2000, L801.2600 #### [facility] [address] [place], [address] Lupus Anticoagulant Compon 0 - aPTT Coag (Bld) [Time] 39.5 s Normal 0.0-43.5 [facility] Comment on above: Performed By: #### L 4500.0100, L3100.8410, L3410.2000, L801.2600 #### [facility] [address] [place], [address] DILUTE PT (dPT) 31.8 sec Normal 0.0-47.6 [facility] Comment on above: Performed By: #### L 4500.0100, L3100.8410, L3410.2000, L801.2600 #### [facility] [address] [place], [address] dPT Conf. Ratio 1.20 Ratio Normal 0.00-1.34 [facility] Comment on above: Performed By: #### L 4500.0100, L3100.8410, L3410.2000, L801.2600 #### [facility] [address] [place], [address] DRVVT 43.5 sec Normal 0.0-47.0 [facility] Comment on above: Performed By: #### L 4500.0100, L3100.8410, L3410.2000, L801.2600 #### [facility] [address] [place], [address] Interpretation Comment: Normal . [facility] Comment on above: Result Comment: No l upus anticoagulant was detected. Performed By: #### L 4500.0100, L3100.8410, L3410.2000, L801.2600 #### [facility] [address] [place], [address] THROMBIN TIME 18.6 sec Normal 0.0-23.0 [facility] Comment on above: Performed By: #### L 4500.0100, L3100.8410, L3410.2000, L801.2600 #### [facility] [address] [place], [address] PROGESTERONE 4317on 08-24-20 24 PROGESTERONE 0.4 ng/mL Normal . [facility] Comment on above: Order Comment: N day 21 [id number] Result Comment: Foll icular phase 0.1 - 0.9 Luteal phase 1.8 - 23.9 Ovulation phase 0.1 - 12.0 First trimester 11.0 - 44.3 Second trimester 25.4 - 83.3 Third trimester 58.7 - 214.0 Postmenopausal 0.0 - 0.1 Performed at: - [facility] [id number] Tension Machine Operator: Juan M Nielsen PhD, Phone: [phone] Performed By: #### L 4500.0100, L3152.3066, L3890.2186, L428.0263 #### [facility] [address] [place], [address] Associate Sales Manager Office Visit Reporton 10-17-2023 Associate Sales Manager Office Visit Report [facility] [address] [place] [address] OFFICE VISIT Date of Service: 10/17/23 MR#: [id number] Acct: [id number] Name: JEFF RUSHING Rep #: [id number] : 1995 Provider: SALLIE Chamberlain ams Age/Sex: 28/F [place] [facility] [place]: Signed Intake Vital Signs 07/25/23 09:56 10/17/23 10:44 10/17/23 10:44 Height 5 ft 8 in 5 ft 8 in 5 ft 8 in Weight: 222 lb 8 oz BMI 33.8 BP 128/83 H Intake Visit Reasons: discuss starting Clomid Beam Doffer Required: No Is patient in pain?: No Allergies Iodinated Contrast Media Allergy (Mild, Verified 10/17/23 10:43) Hives Medications ???Medication ???Instructions ???Recorded ???Confirmed ???Type NK 07/02/23 10/17/23 History Post menopausal: No Patient : No : No PFSH Medical History Cyst of spleen Surgical History [place] teeth removed Family History Grandmother Throat cancer Grandfather Lung cancer Father Diabetes Hypertension Social History adopted: No household members: significant other current occupational status: employed 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 Has had infertility work up and labs are normal. Needs 21 day progesterone. Has been able to conceive in the past but said previous OBGYN said she needed progesterone. Tried both shot and suppositories and still had miscarriage. Discussed getting labs to determine if she ovulated and determine if CLomid/letrozole appropriate. Female Reproductive History Last Menstrual Period: 10/10/23 Cycle Length: 21-35 Bleeding Duration: 5 Frequency of changing protection: TTC Questions: sexually active: Yes, dyspareunia: No and PCB: No ROS Const Constitutional: Reports system reviewed and no additional complaints, except as documented Cardio Card: Reports system reviewed and no additional complaints, except as documented Resp Resp: Reports system reviewed and no additional complaints, except as documented GI GI: Reports system reviewed and no additional complaints, except as documented : Reports system reviewed and no additional complaints, except as documented; Denies difficulty voiding, dysuria or urinary frequency Skin Skin/Breast: Reports system reviewed and no additional complaints, except as documented Neuro Neuro: Reports system reviewed and no additional complaints, except as documented Psych Psych: Reports system reviewed and no additional complaints, except as documented Exam Const General: cooperative, healthy appearing, comfortable and no acute distress Resp Effort Inspection: normal respiratory effort, able to speak in complete sentences and symmetric chest movement Neuro General: patient alert, patient awake and patient oriented x3 Cognition: normal cognition Speech: speech normal Gait: normal gait Psych Appearance: grossly normal and well kempt Mental Status: mental status grossly normal Affect: normal affect Speech and Movement: speech and movement normal Attitude: cooperative Thought Process: normal Thought Content: normal Judgment: judgment good Coding Level of Care Code Off vis,est,level 3 Diagnoses PCOS (polycystic ovarian syndrome) E28.2 Recurrent loss N96 Assessment and Plan Assessment and Plan (1) PCOS (polycystic ovarian syndrome): Status: Acute Plan: 21 day progesterone OAR -PCOS TVUS-nl Letrozole/clomid pending results (2) Recurrent loss: Status: Acute Plan: APL panel Orders: Orders PROGESTERONE Today E28.2 - Polycystic ovarian syndrome Beta-2 Glycoprot IgG, A, M Today N96 - Recurrent loss Lupus Anticoagulant Comp Today N96 - Recurrent loss Anticardiolipin IgG, IgM Today N96 - Recurrent loss 10/17/23 1133 Date Aaliyah Borrego CNM Cosigner Signature: Date (if applicable) CC: Normal [facility] Transvaginal Non-on 09-19-2023 Transvaginal Non- [facility] [address] [place] [address] Transvaginal Non- MR#: [id number] Acct: [id number] Name: JEFF RUSHING Rep #: [id number] : 1995 F 28 From: Kwame lanier MD PCP: Dr. Marco Mojica MD Status: [facility] Study: Transvaginal Non- Date of Exam: Exam# [id number] Ordering Dr: Aaliyah Borrego CNM -[id number] STUDY: ULTRASOUND OF THE FEMALE PELVIS - COMPLETE REASON FOR EXAM: Female, 28 years old. 6 week follow up cyst LMP: September 17, 2023. TECHNIQUE: Transvaginal TECHNICAL QUALITY: Adequate. COMPARISON: Comparison is made with prior study dated August 01, 2023. FINDINGS: The uterus is anteverted and is in a midline position. The uterus measures 6.7 cm x 4.5 cm x 2.9 cm. 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 Normal uterine cervix. The endometrium measures 8 mm in thickness, and is heterogeneous (striated). There is no demonstrated endometrial mass. There is no demonstrated myometrial mass. I.U.D. - The patient does not have an I.U.D. The right ovary is visualized. The right ovary measures 3.9 cm x 3.3 cm x 2.2 cm. There is no right ovarian cyst or ovarian mass. There is no visualized right adnexal mass or complex lesion. There is normal arterial and normal venous vascularity. The left ovary is visualized. The left ovary measures 3.8 cm x 3.8 cm x 3.3 cm. There is a dominant follicle measuring 1.8 cm by [place] by 1.9 cm. There is no visualized left adnexal mass or complex lesion. There is normal arterial and normal venous vascularity. There is no fluid in the cul-de-sac. US/Transvaginal Non- IMPRESSION: Interval decrease in size of the complex left ovarian cyst. Electronically Signed: Kwame Gibson MD at 11:01 EDT Reading Location ID and State: 3 [facility] , Service support , CC: SALLIE Borrego; Dr. Marco Mojica MD Block Handler: Signed Normal [facility] Chlamydia trachomatis rRNA d etection by probe and target amplification methodOrdered By: Esperanza Dotson on 07-02-2023 C. trachomatis rRNA PETER+probe Ql (Unsp spec) Negative Negative [facility] Gram stain for investigation of transfusion reactionOrdered By: Esperanza Dotson on 07-02-2023 Microscopic observation Gram stain Nom (Unsp spec) [facility] Laboratory - Microbiology an d Antimicrobial susceptibilityOrdered By: Esperanza Dotson on 07-02-2023 N. gonorrhoeae DNA PETER+probe Ql (Unsp spec) Negative Negative [facility] Comment on above: Performed at: =G - L [address], [place] [id number] Director: Jada Mayberry MD, Phone: [phone] No Panel InformationOrdered By: Esperanza Dotson on 07-02-2023 Genital Culture [facility] No Panel Informationon 07-01 POC Bacterial Vaginitis (Rapid) Negative [facility] POC [facility]ich[facility] (Rapid) [facility] Order Number [id number] [facility]) Comment on above: Performed By: #### 9 [id number] #### [address] Test Name echinoccus granulosis ab [facility]) Comment on above: Performed By: #### 9 [id number] #### [address] Test Source see report [facility]) Comment on above: Performed By: #### 9 [address] #### [address] 02-21-2023 [facility] Test Result COMMENT Normal [facility]) Comment on above: Result Comment: Test Ordered: [id number] Echinococcus Antibody Echinococcus Antibody Equivocal Reference Range: Negative Performed At: [facility] [address] [place], [place] [id number] Gia Mcgowan PhD Ph:[phone] Performed At: [facility] [id number] Eric Chavira MD Ph:[phone] Performed By: #### 9 [address] #### [place] [address] .Auto Diffon 02-15-2023 Basophil, Absolute 0.0 10 3/mcL Normal 0.0-0.2 [facility]) Comment on above: Performed By: #### A TITI, MDW, ADIFF, GFR, CBC, LIP, CMP #### [place] [address] Basophils/100 WBC (Bld) 0.3 % Normal 0.0-2.5 A [facility] ([place]) Comment on above: Performed By: #### A YAN WALLS, ADIFF, GFR, CBC, LIP, CMP #### [address] [address] Eosinophil, Absolute 0.0 10 3/mcL Normal 0.0-0.4 [facility] ([place]) Comment on above: Performed By: #### A YAN WALLS, ADIFF, GFR, CBC, LIP, CMP #### [address] [address] Eosinophils/100 WBC (Bld) 0.7 % Normal 0.0-7.0 [facility] ([place]) Comment on above: Performed By: #### A YAN WALLS, ADIFF, GFR, CBC, LIP, CMP #### [address] [address] Lymphocyte, Absolute 2.1 10 3/mcL Normal 0.8-3.9 [facility] ([place]) Comment on above: Performed By: #### A YAN WALLS, SCOTTIFF, GFR, CBC, LIP, CMP #### [address] [address] Lymphocytes/100 WBC (Bld) 29.5 % Normal 10.0-50.0 [facility] [facility] ([place] Comment on above: Performed By: #### A YAN WALLS, ADIFF, GFR, CBC, LIP, CMP #### [address] [address] Monocyte, Absolute 0.4 10 3/mcL Normal 0.2-1.0 [facility] ([place]) Comment on above: Performed By: #### A YAN WALLS, ADIFF, GFR, CBC, LIP, CMP #### [address] [address] Monocytes/100 WBC (Bld) 5.5 % Normal 1.7-13.0 A [facility] ([place]) Comment on above: Performed By: #### A YAN WALLS, ADIFF, GFR, CBC, LIP, CMP #### [address] [address] Neutrophils/100 WBC (Bld) 64.0 % Normal 37.0-80.0 [facility] ([place] Comment on above: Performed By: #### A YAN WALLS, ADIFF, GFR, CBC, LIP, CMP #### [address] [address] .GFRon 02-15-2023 GFR 149 ml/min/1.73sqm Normal [facility] ([place]) Comment on above: Result Comment: GFR Population [...] meters Performed By: #### A YAN WALLS, ADUZMA, GFR, CBC, LIP, CMP #### [address] [address] GFR Non- 123 ml/min/1.73sqm Normal [facility] ([place] Comment on above: Result Comment: GFR Population [...] WALLS, ADIFF, GFR, CBC, LIP, CMP #### [place] [address] .MDWon 02-15-2023 Monocyte Distribution Width 18.17 Normal 0.00-20.00 [facility] ([place] Comment on above: Result Comment: For ED adult patients suspected of sepsis, MDW<=20.0 does not rule out sepsis or risk of sepsis Performed By: #### A YAN WALLS, ADIFF, GFR, CBC, LIP, CMP #### [place] [address] .NEUABSon 02-15-2023 Neutrophil, Absolute 4.5 10 3/mcL Normal 2.9-6.2 [facility] ([place] Comment on above: Performed By: #### A YAN WALLS, ADIFF, GFR, CBC, LIP, CMP #### [place] [address] .Urinalysis Microscopic (AO) on 02-15-2023 UA Amorphus Trace Normal [facility]) Comment on above: Performed By: #### 9 [address] #### [place] [address] UA Bacteria Trace Abnormal [facility] ([place] Comment on above: Performed By: #### 9 306[address] #### [place] [address] UA Mucous 4+ /hpf Normal [facility] ([place] Comment on above: Performed By: #### 9 [address]59 #### [address] [address] UA RBC None Seen Normal None Seen [facility] ([place] Comment on above: Performed By: #### 9 [address]997 #### [place] [address] UA Squam Epithelial 5-10 Abnormal None Seen [facility] ([place] Comment on above: Performed By: #### #### [place] [address] UA WBC 0-5 Abnormal None Seen [facility] ([place] Comment on above: Performed By: #### 9 [address] #### [place] [id number] CBCon 02-15-2023 Erythrocyte distribution width (RBC) [Ratio] 12.6 % Normal 11.5-14.5 [facility] ([place] Comment on above: Performed By: #### A YAN WALLS, ANIA, GFR, CBC, LIP, CMP #### [place] [address]647 Hematocrit (Bld) [Volume fraction] 45.3 % Normal 37.0-47.0 [facility] ([place] Comment on above: Performed By: #### A YAN WALLS, ANIA, GFR, CBC, LIP, CMP #### [place] [address]647 Hgb 15.3 G/dL Normal 12.0-16.0 [facility] ([place] Comment on above: Performed By: #### A YAN WALLS, ANIA, GFR, CBC, LIP, CMP #### [place] [address]647 MCH (RBC) [Entitic mass] 28.9 pg Normal 27.0-31.2 [facility] ([place] Comment on above: Performed By: #### A YAN WALLS, ANIA, GFR, CBC, LIP, CMP #### [place] [address]647 MCHC 33.7 G/dL Normal 33.0-37.0 [facility] ([place] Comment on above: Performed By: #### A YAN WALLS, ANIA, GFR, CBC, LIP, CMP #### [place] [id number] MCV (RBC) [Entitic vol] 85.7 fL Normal 80.0-94.0 [facility] ([place]) Comment on above: Performed By: #### A YAN WALLS, ANIA, GFR, CBC, LIP, CMP #### [address] [address] Platelet 250 10 3/mcL Normal 130-400 [facility] ([place] Comment on above: Performed By: #### A YAN WALLS, ADIFF, GFR, CBC, LIP, CMP #### [address] [address] Platelet mean volume (Bld) [Entitic vol] 9.8 fL Normal 7.4-10.4 [facility] ([place] Comment on above: Performed By: #### A YAN WALLS, ANIA, GFR, CBC, LIP, CMP #### [address] [address] RBC 5.29 10 6/mcL Normal 4.20-5.40 [facility] ([place] Comment on above: Performed By: #### A YAN WALLS, ANIA, GFR, CBC, LIP, CMP #### [address] [address] WBC 7.0 10 3/mcL Normal 4.6-10.8 [facility] ([place] Comment on above: Performed By: #### A YAN WALLS, ANIA, GFR, CBC, LIP, CMP #### [address] [address] CMPon 02-15-2023 Albumin Level 4.5 G/dL Normal 3.5-5.0 [facility] ([place] Comment on above: Performed By: #### A YAN WALLS, ANIA, GFR, CBC, LIP, CMP #### [address] [address] Albumin/Globulin [Mass ratio] 1.2 {ratio} Normal 1.1-2.5 [facility] ([place] Comment on above: Performed By: #### A YAN WALLS, SCOTTIFF, GFR, CBC, LIP, CMP #### [address] [address] ALP [Catalytic activity/Vol] 101 U/L Normal 40-135 [facility] ([place] Comment on above: Performed By: #### A YAN WALLS, SCOTTIFF, GFR, CBC, LIP, CMP #### [address] [address] ALT [Catalytic activity/Vol] 29 U/L Normal 14-59 [facility] ([place] Comment on above: Performed By: #### A YAN WALLS, ADIFF, GFR, CBC, LIP, CMP #### [address] [address] AST [Catalytic activity/Vol] 15 U/L Normal 10-40 [facility] ([place] Comment on above: Performed By: #### A YAN WALLS, ADIFF, GFR, CBC, LIP, CMP #### [address] [address] Bili Total 0.6 mg/dL Normal 0.2-1.0 [facility] ([place] Comment on above: Result Comment: Use of this assay is not recommended for patients undergoing treatment with eltrombopag due to the potential for falsely elevated results. Performed By: #### A YAN WALLS, SCOTTIFF, GFR, CBC, LIP, CMP #### [address] [address] BUN/Creatinine Ratio 12 ratio Normal 7-27 [facility] ([place]) Comment on above: Performed By: #### A YAN WALLS, SCOTTIFF, GFR, CBC, LIP, CMP #### [address] [address] Calcium [Mass/Vol] 10.0 mg/dL Normal 8.4-10.2 [facility] ([place]) Comment on above: Performed By: #### A YAN WALLS, ADIFF, GFR, CBC, LIP, CMP #### [address] [address] Chloride [Moles/Vol] 98 mmol/L Normal 98-107 [facility] ([place] Comment on above: Performed By: #### A YAN WALLS, ADIFF, GFR, CBC, LIP, CMP #### [address] [address] CO2 [Moles/Vol] 25 mmol/L Normal 22-29 [facility] ([place] Comment on above: Performed By: #### A YAN WALLS, ANIA, GFR, CBC, LIP, CMP #### [place] [address] Creatinine [Mass/Vol] 0.59 mg/dL Normal 0.55-1.02 [facility] ([place]) Comment on above: Performed By: #### A YAN WALLS, ANIA, GFR, CBC, LIP, CMP #### [place] [address] Electrolyte Balance 11.0 mEq/L Normal 4.0-15.0 [facility] ([place]) Comment on above: Performed By: #### A YAN WALLS, ANIA, GFR, CBC, LIP, CMP #### [place] [address] Globulin 3.8 G/dL Normal [facility] ([place] Comment on above: Performed By: #### A YAN WALLS, ANIA, GFR, CBC, LIP, CMP #### [place] [address] Glucose [Mass/Vol] 101 mg/dL Normal 70-105 [facility] ([place] Comment on above: Performed By: #### A YAN WALLS, ANIA, GFR, CBC, LIP, CMP #### [place] [address] Potassium [Moles/Vol] 3.8 mmol/L Normal 3.5-5.1 [facility] ([place]) Comment on above: Performed By: #### A YAN WALLS, ANIA, GFR, CBC, LIP, CMP #### [place] [address] Sodium [Moles/Vol] 134 mmol/L Low 136-145 [facility] ([place] Comment on above: Performed By: #### A YAN WALLS, ANIA, GFR, CBC, LIP, CMP #### [place] [phone] Total Protein 8.3 G/dL High 6.4-8.2 [facility] ([place] Comment on above: Performed By: #### A YAN WALLS, ANIA, GFR, CBC, LIP, CMP #### [address] [place] [address] [place], [place] [address] Urea nitrogen [Mass/Vol] 7 mg/dL Normal 7-18 [facility] ([place] Comment on above: Performed By: #### A YAN WALLS, ANIA, GFR, CBC, LIP, CMP #### [place] [place] [address] [place], [place] [address] CT ABD/PELVIS W/ IV CONTRAST ONLYon 02-15-2023 CT ABD/PELVIS W/ IV CONTRAST ONLY ORIGINAL EXAMINATION: CT OF THE ABDOMEN AND PELVIS WITH YMQSNPCK67/9/2023 1:[address] ABDOMEN/PELVIS WITH CONTRAST TECHNIQUE: [...] 02/15/2023 1:35:36 PM Ordering Provider: AUGIE Fagan [facility] ([place]) LABORATORYOrdered By: SYSTEM SYSTEM on 02-15-2023 Albumin [...] Ql (U) Negative Normal Negative AO Auto Urine SS test (u) int Not detected Invalid [...] Seen /HPF Normal None Seen AO Auto Urine SS UA Spec Grav 1.025 (02/15/23 12:24 [...] 02-15-2023 Lipase Level 18 U/L Normal 16-77 [facility] ([place] Comment on above: Performed By: #### A TITI, MDW, ADIFF, GFR, CBC, LIP, CMP #### [address] [address] PREGUon 02-15-2023 HCG ( test) Ql (U) Negative Normal [facility] ([place] Comment on above: Performed By: #### P REGU, UA, UAMICAO #### [place] [id number] test (u) int Not detected Invalid Interpretation Code [facility] ([place] Comment on above: Performed By: #### P REGU, UA, UAMICAO #### [address] [address] UAon 02-15-2023 Color (U) Yellow Normal [facility] ([place] Comment on above: Performed By: #### 9 [address] #### [place] [address] Glucose (U) [Mass/Vol] Negative Normal Negative [facility] ([place]) Comment on above: Performed By: #### 9 [address] #### [place] [address] Ketones Ql (U) Negative Normal Negative [facility] ([place] Comment on above: Performed By: #### 9 [address] #### [address] [address] UA Appear Cloudy Abnormal Clear [facility] ([place] Comment on above: Performed By: #### 9 [address] #### [address] [address] UA Blood Negative Normal Negative [facility] ([place] Comment on above: Performed By: #### 9 17431 #### [place] [address] UA Leuk Est Negative Normal Negative [facility] ([place] Comment on above: Performed By: #### 9 44[address] #### [place] [address] UA Nitrite Negative Normal Negative [facility] ([place] Comment on above: Performed By: #### 9 54[address] #### [place] [address] UA pH 6.0 Normal 5.0 - 8.0 [facility] ([place] Comment on above: Performed By: #### 9 [address] #### [place] [address] UA Protein Negative Normal Negative [facility] ([place] Comment on above: Performed By: #### 9 37671 #### [place] [address] UA Spec Grav 1.025 Normal 1.015-1.025 [facility] ([place] Comment on above: Performed By: #### 9 [address] #### [place] [address] UA Specimen Type Clean Catch Normal [facility] ([place] Comment on above: Performed By: #### 9 58[address] #### [place] [address] UA Urobilinogen 0.2 E.U./dL Normal 0.2-1.0 [facility] ([place] Comment on above: Performed By: #### 9 09354 #### [place] [address] Urobilinogen (U) [Mass/Vol] Negative Normal Negative [facility] ([place] Comment on above: Performed By: #### 9 [address] #### [address] [address] XR CHEST 2 VIEWSon 3 XR CHEST [...] 02/15/2023 1:26:39 PM Ordering Provider: OSCAR ZAMBRANO [facility] ([place]) DIGIT OF FOOT LEFT 5THon DIGIT OF [...] articular extension to the PIP joint. Normal [facility] LUMBAR WITH OBLIQUESon 05-30 LUMBAR WITH OBLIQUES [...] acute osseous abnormality. 2. Normal alignment. Normal [facility] LUMBAR WITH OBLIQUESon 05-01 LUMBAR WITH OBLIQUES [...] represent constipation in proper clinical context. Normal [facility] BACTERIAL VAGINOSIS AMPLIFIC ATIONon 02-06-2022 Bacterial Vaginosis Amplification High () [facility] Bact Vag Ampon 02-06-2022 Bact Vag Amp High () [facility] Comment on above: Result Comment: INFC E Result: Positive for bacterial vaginosis INFCE Result Reference Range: Negative for bacterial INFCE Result Reference Range: vaginosis INFCE Result Abnormal Flag: A Test Performed By: [facility] [address] [place] [address] Reimbursement Representative: Sathish Gillespie III, M.D. C. trachomatis+N. gonorrhoea e DNA PETER+probe Ql (Unsp spec)on 02-06-2022 Chlamydia Amplification [facility] GC Amplification [facility] CNPNon 02-06-2022 IOANAN Telephone (KRISTY) ---- JEFF RUSHING ([id number]) 1995 F Date Time Provider Department 02/06/22 ISI MARTELL During your visit today, we recorded the following information about you: Isi Martell APRN.IOANA 02/06/2022 11:31 AM Signed Please notify patient [...] either over or under the allotted amount. eXnia stated she is waiting for a return call. Informed if urine is not able to be processed to add order to the vaginal swabs collected then. Xenia verbalized understanding. Isi Martell APRN. MACHINE [employer]AT [employer] Allergies As of Date: 02/06/2022 Noted Allergy [...] Encounter Status:Closed by [facility] JEFF RUSH[facility] ([id number]) 1995 F Date Time Provider Department 02/06/22 ISI MARTELL [facility] During your visit today, we recorded the following information about you: Isi Martell APRN.MACHINE [employer]AT BASKET MAKER 02/06/2022 3:54 PM Signed Negative for Chlamydia and Gonorrhea. May stop Doxycyline. 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 Thanks Kendy Whitt 02/07/2022 10:30 AM Signed Left message for patient to return phone call. Kendy Kam, RT(R) 02/08/2022 10:42 AM Signed Message left to call back. RT Augustine(R) Mirella Ram MA 02/09/2022 8:40 AM Signed Patient called in and was advised of results. 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 Mirella Ram MA Allergies As [...] Status:Closed by ISI MARTELL on 02/06/22 Normal [facility] GC/Jenifer Ampon 02-06-2022 Chlamydia Amp Normal [facility] Comment on above: Result Comment: INFC E Result: Negative for Chlamydia trachomatis by INFCE Result: amplification INFCE Result Reference Range: Negative for Chlamydia INFCE Result Reference Range: trachomatis by amplificaton SOURCE: GENITAL Test Performed By: [facility] [address] [place] [address] Reimbursement Representative: Sathish Gillespie III, M.D. Amplificatin [facility] Comment on above: Result Comment: INFC E Result: Negative for Neisseria gonorrhoeae by INFCE Result: amplification INFCE Result Reference Range: Negative for Neisseria INFCE Result Reference Range: gonorrhoeae by amplification T VAGINALIS AMPLIFICATIONon 02-06-2022 T. vaginalis Amplif [facility] URINE CULTUREon 02-06-2022 Bacteria identified Cx Nom (U) XXX [facility] BACTERIAL VAGINOSIS AMPLIFIC ATIONon 02-05-2022 Lactobacillus crispatus+gasseri+jense delmy + Gardnerella vaginalis + Atopobium vaginae rRNA PETER+probe Ql (Vag fld) Positive Abnormal Negative for bacterial vaginosis [facility] Comment on above: Order Comment: Speci men Type: SWAB Ordering Facility: [facility] Address: [address] [place] [address] Performed By: #### T RVAMP, BVAMP #### [facility] CLIA [id number] [address] [place] [address] [place] Bacteria Ur Culton 2 Bacteria identified Cx Nom (U) ORGANISM ID: 1 <10,000 CFU/ml Mixed microbiota Streptococcus agalactiae (Group B streptococcus) was identified in this specimen, which is clinically relevant if the individual is . Insignificant colony count. No further workup. Normal [facility] Comment on above: Performed By: #### 6 30-4 #### [facility] CLIA [id number] [facility] [place] [address] [place] C. trachomatis+N. gonorrhoea e DNA PETER+probe Ql (Unsp spec)on 02-05-2022 C. trachomatis DNA PETER+probe Ql (Unsp spec) Negative Normal Negative for Chlamydia trachomatis by amplificaton [facility] Comment on above: Order Comment: Speci men Type: SWAB Ordering Facility: [facility] Address: [address] [place] [address] Performed By: #### 3 6902-5 #### [facility] CLIA [id number] [address] [place] [address] [place] N. gonorrhoeae DNA PETER+probe Ql (Unsp spec) Negative Normal Negative for Neisseria gonorrhoeae by amplification [facility] Comment on above: Order Comment: Speci men Type: SWAB Ordering Facility: [facility] Address: [address] [place] [address] Performed By: #### 3 6902-5 #### [facility] CLIA [id number] [address] [place], [place] [id number] [place] T VAGINALIS AMPLIFICATIONon 02-05-2022 T. vaginalis DNA PETER+probe Ql (Unsp spec) Negative Normal Negative for Trichomonas vaginalis by amplification [facility] Comment on above: Order Comment: Speci men Type: MICROBIAL ISOLATE Ordering Facility: [facility] Address: [address] [place] [address] Performed By: #### T RVAMP, BVAMP #### [facility] CLIA [id number] [address] [place] [address] [id number] [address] [place] Trich Vaginalison 02-05-2022 Trich Vaginalis Normal [facility] Comment on above: Result Comment: INFC E Result: Negative for Trichomonas vaginalis by INFCE Result: amplification INFCE Result Reference Range: Negative for Trichomonas INFCE Result Reference Range: vaginalis by amplification SOURCE: GENITAL Test Performed By: [facility] [address] [place] [address] Reimbursement Representative: Agnes Rhodes III 2022 CNOV Office Visit (UCUPNO) ---- JEFF RUSHING ([id number]) 1995 F Date Time Provider Department 02/04/22 10:20 AM ISI MARTELL During your visit today, we recorded the following information about you: Temperature Pulse Blood pressure Weight 97.9 degrees 49/minute 140/89 102.5 kg Last Period 01/29/22 Isi Martell APRN.MACHINE [employer] 2022 12:37 PM Signed 2022 Subjective Chief [...] Exam Vitals reviewed. Exam conducted with a trade mark examiner present. Constitutional: General: She is not in acute distress. Appearance: Normal appearance. She is not ill-appearing, toxic-appearing or diaphoretic. HENT: Head: Normocephalic and atraumatic. Genitourinary: Exam position: Lithotomy position. Vagina: Vaginal discharge present. Cervix: Discharge present. 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 prosthetic technician, was in room during physical examination [...] Diagnosis:Vaginal discharge [N89.8] Order(s):HCG QUAL UR B/O [3818155] Order #: [id number] UA DIP B/O [[id number]] Order #: [id number] URINE CULTURE [SQURCUL] Ord (more content not included)... Normal [facility] HCG QUAL UR B/Oon 2022 status Negative neg - pos [facility] Quality Check Yes [facility] UA DIP B/Oon 2022 Bilirubin, Urine Negative Neg [facility] Color/Appearance YELLOW/CLEAR [facility] Glucose Ql (U) Negative Neg mg/dL [facility] Hemoglobin/Blood,Ur Negative Neg [facility] Ketones Ql (U) Negative Neg [facility] Leukocytes Negative Neg [facility] Nitrite Ql (U) Negative Neg [facility] pH (U) 5.5 [pH] 4.5 - 8.0 [facility] Protein.monoclonal (U) [Mass/Vol] Negative Neg mg/dL [facility] Specific [place], Ur 1.030 1.005 - 1.030 [facility] Urobilinogen, Urine 0.2 EU Normal ( <1.1) EU [facility] Urine Cultureon 2022 Bacteria identified Cx Nom (U) CULTURE, URINE MIXED MICROBIOTA <10,000 CFU/ml Mixed microbiota Streptococcus agalactiae (Group B streptococcus) was identified in this specimen, which is clinically relevant if the individual is . Insignificant colony count. No further workup. Urine, Midstream clean catch SOURCE: URINE Test Performed By: [facility] [address] [place] [address] Reimbursement Representative: Sathish Gillespie III, M.D. See Below [facility] CBC W Auto Differential pane l (Bld)on 09-12-2021 Basophils (Bld) [#/Vol] 0.01 10*3/uL Normal <=0.70 [facility] Comment on above: Performed By: #### 5 7021-8 #### [place] [address] Automotive Lube Technician - Mary PORTILLOIA [id number] Basophils/100 WBC (Bld) 0.2 % Normal <=2.0 [facility] Comment on above: Performed By: #### 5 7021-8 #### [place] [address] Automotive Lube Technician - Mary Hernandezrell LINDSEYIA [id number] Eosinophils (Bld) [#/Vol] 0.06 10*3/uL Normal <=0.70 [facility] Comment on above: Performed By: #### 5 7021-8 #### [place] [address] [employer] LINDSEYIA [id number] Eosinophils/100 WBC (Bld) 0.9 % Normal <=10.0 [facility] Comment on above: Performed By: #### 5 7021-8 #### [place] [address] Automotive Lube Technician - Mary PORTILLOIA [id number] Erythrocyte distribution width (RBC) [Entitic vol] 38.1 fL Normal 36.4-46.3 [facility] Comment on above: Performed By: #### 5 7021-8 #### [address] [place] [address] Automotive Lube Technician - Mary PORTILLOIA [id number] Hematocrit (Bld) [Volume fraction] 41.2 % Normal 37.0-47.0 [facility] Comment on above: Performed By: #### 5 7021-8 #### [address] [place] [address] Automotive Lube Technician - Mary PORTILLOIA [id number] Hemoglobin (Bld) [Mass/Vol] 14.1 g/dL Normal 12.0-16.0 [facility] Comment on above: Performed By: #### 5 7021-8 #### [place] [address] Automotive Lube Technician - Mary Parra CLIA [id number] Immature granulocytes (Bld) [#/Vol] 0.03 10*3/uL Normal <=0.10 [facility] Comment on above: Performed By: #### 5 7021-8 #### [address] [place] [address] Automotive Lube Technician - Mary Parra CLIA [id number] Immature granulocytes/100 WBC (Bld) 0.50 % Normal <=1.50 [facility] Comment on above: Performed By: #### 5 7021-8 #### [address] [place] [address] Automotive Lube Technician - Mary Parra CLIA [id number] Lymphocytes (Bld) [#/Vol] 2.28 10*3/uL Normal 1.20-3.40 [facility] Comment on above: Performed By: #### 5 7021-8 #### [address] [place] [address] Automotive Lube Technician - Mary Parra CLIA [id number] Lymphocytes/100 WBC (Bld) 35.4 % Normal 20.0-40.0 [facility] Comment on above: Performed By: #### 5 7021-8 #### [facility] [address] [place] [address] Automotive Lube Technician - Mary GAUTAM [id number] MCH (RBC) [Entitic mass] 29.3 pg Normal 27.0-31.0 [facility] Comment on above: Performed By: #### 5 7021-8 #### [facility] [address] [place] [address] Automotive Lube Technician - Mary GAUTAM [id number] MCHC (RBC) [Mass/Vol] 34.2 g/dL Normal 32.0-36.0 [facility] Comment on above: Performed By: #### 5 7021-8 #### [address] [facility] [place] [address] Automotive Lube Technician - Mary GAUTAM [id number] MCV (RBC) [Entitic vol] 85.7 fL Normal 80.0-100.0 [facility] Comment on above: Performed By: #### 5 7021-8 #### [place] [address] [place] [address] Automotive Lube Technician - Mary PORTILLOIA [id number] Monocytes (Bld) [#/Vol] 0.36 10*3/uL Normal 0.10-0.60 [facility] Comment on above: Performed By: #### 5 7021-8 #### [place] [address] [place] [address] [employer]ician - Mary PORTILLOIA [id number] Monocytes/100 WBC (Bld) 5.6 % Normal <=8.0 [facility] Comment on above: Performed By: #### 5 7021-8 #### [place] [address] [place] [address] [employer]ician - Mary PORTILLOIA [id number] Neutrophils (Bld) [#/Vol] 3.70 10*3/uL Normal 1.40-6.50 [facility] Comment on above: Performed By: #### 5 7021-8 #### [place] [address] [place] [address] Autom[employer] Technician - Mary PORTILLOIA [id number] Neutrophils/100 WBC (Bld) 57.4 % Normal 50.0-70.0 [facility] Comment on above: Performed By: #### 5 7021-8 #### [facility] [address] [place] [address] [employer] Technician - Mary PORTILLOIA [id number] Nucleated RBC (Bld) [#/Vol] 0.00 10*3/uL Normal <=0.10 [facility] Comment on above: Performed By: #### 5 7021-8 #### [facility] [address] [place] [address] Automotive L[employer] Technician - Mary PORTILLOIA [id number] Platelet mean volume (Bld) [Entitic vol] 11.9 fL Normal 9.0-13.0 [facility] Comment on above: Performed By: #### 5 7021-8 #### [place] [address] [place] [address] Autom[employer] L[employer] Technician - Mary PORTILLOIA [id number] Platelets (Bld) [#/Vol] 210 10*3/uL Normal 130-400 [facility] Comment on above: Performed By: #### 5 7021-8 #### [facility] [address] [place] [address] Automotive Lube Technician - Mary PORTILLOIA [id number] RBC (Bld) [#/Vol] 4.81 10*6/uL Normal 4.00-6.30 [facility] Comment on above: Performed By: #### 5 7021-8 #### [facility] [address] [place] [address] Automotive L[employer] Technician - Mary PORTILLOIA [id number] WBC (Bld) [#/Vol] 6.44 10*3/uL Normal 4.80-10.80 [facility] Comment on above: Performed By: #### 5 7021-8 #### [facility] [address] [place] [address] Autom[employer] L[employer] Technician - Mary PORTILLOIA [id number] CHEST AND LATERAL OR 2 VIEWS on [...] No acute cardiopulmonary process is identified. Normal [facility] Comprehensive metabolic 2000 panelon 09-12-2021 Albumin [Mass/Vol] 3.6 g/dL Normal 3.4-5.0 [facility] Comment on above: Performed By: #### 1 1579-0, 24034-1, , ####[facility] Director - Mary Shaffer [id number] ALP [Catalytic activity/Vol] 82 U/L Normal 50-136 [facility] Comment on above: Performed By: #### 1 1579-0, , , ####[facility] Director - Mary Shaffer [id number] ALT [Catalytic activity/Vol] 19 U/L Normal 14-59 [facility] Comment on above: Performed By: #### 1 1579-0, 46555-7, , ####[facility] Director - Mary Shaffer [id number] Anion gap [Moles/Vol] 3.0 mmol/L Normal <=15.0 [facility] Comment on above: Performed By: #### 1 1579-0, 42734-9, , 26327-0 ####[facility] Director - Mary Shaffer [id number] AST [Catalytic activity/Vol] 13 U/L Low 15-37 [facility] Comment on above: Performed By: #### 1 1579-0, 21448-9, , ####[facility], [place] [address]Pctlulo Director - Mary Shaffer [id number] Bilirubin [Mass/Vol] 0.4 mg/dL Normal 0.2-1.0 [facility] Comment on above: Performed By: #### 1 1579-0, , , ####[facility], [place] [address]Grnehjt Director - Mary Shaffer [id number] Calcium [Mass/Vol] 8.7 mg/dL Normal 8.5-10.1 [facility] Comment on above: Performed By: #### 1 9-0, , , ####[facility], [place] [address]Nujtqpf Director - Mary Shaffer [id number] Chloride [Moles/Vol] 105 mmol/L Normal 98-107 [facility] Comment on above: Performed By: #### 1 9-0, , , ####[facility], [place] [address]Ekjkxdv Director - Mary Shaffer [id number] CO2 [Moles/Vol] 26 mmol/L Normal 21-32 [facility] Comment on above: Performed By: #### 1 1579-0, , , ####[facility], [place] [address]Pvmdrzj Director - Mary Shaffer [id number] Creatinine [Mass/Vol] 0.40 mg/dL Low 0.51-0.95 [facility] Comment on above: Performed By: #### 1 1579-0, , , 63500-7 ####[facility] Director - Mary Shaffer [id number] GFR/1.73 sq M.predicted MDRD (S/P/Bld) [Vol rate/Area] mL/min/{1.73_m2} Normal >=59 [facility] Comment on above: Performed By: #### 1 9-0, 95855-6, , ####[facility] Director - Mary Shaffer [id number] Glucose [Mass/Vol] 99 mg/dL Normal 74-106 [facility] Comment on above: Performed By: #### 1 9-0, , , ####[place] [address] - Mary Shaffer [id number] HGFR GLOMERULAR FILTRATION RATE INTERPRETATION~The eGFR is [...] months, with or without kidney damage.~ Normal [facility] Comment on above: Performed By: #### 1 9-0, 17082-1, , ####[facility] Director - [facility] [id number] Potassium [Moles/Vol] 3.7 mmol/L Normal 3.5-5.1 [facility] Comment on above: Performed By: #### 1 9-0, 72600-4, 18948-1, 43388-9 ####[facility], [place] [address]Yjcokpt Director - Mary Shaffer [id number] Protein [Mass/Vol] 6.8 g/dL Normal 6.4-8.2 [facility] Comment on above: Performed By: #### 1 1579-0, , , 76793-5 ####[facility], [place] [address]Lzasnwk Director - Mary Shaffer [id number] Sodium [Moles/Vol] 134 mmol/L Low 136-145 [facility] Comment on above: Performed By: #### 1 1579-0, , , ####[facility], [place] [address]Uakpoyy Director - Mary Shaffer [id number] Urea nitrogen [Mass/Vol] 7 mg/dL Normal 7-17 [facility] Comment on above: Performed By: #### 1 9-0, , , ####[facility], [place] [address]Hfpnoii Director - Mary Shaffer [id number] Drugs identified Screen Nom (U)on 09-12-2021 Amphetamines Ql (U) Not detected Normal CUTOFF = 500 [facility] Comment on above: Performed By: #### 1 2286-1 #### [facility] [address] [place], [place] [address] Autom[employer] L[employer] Technician - Mary GAUTAM [id number] Barbiturates Ql (U) Not detected Normal CUTOFF = 200 [facility] Comment on above: Performed By: #### 1 2286-1 #### [facility] [address] [place], [place] [address] Automotive Lube Technician - Mary GAUTAM [id number] Benzodiazepines Ql (U) Not detected Normal CUTOFF = 15 0 [facility] Comment on above: Performed By: #### 1 2286-1 #### [facility] [address] [place] [address] Automotive Lube Technician - [facility] [id number] Cocaine Ql (U) Not detected Normal CUTOFF = 150 [facility] Comment on above: Performed By: #### 1 2286-1 #### [facility] [address] [place] [address] Automotive Lube Technician - [facility] [id number] [facility] abuse screening provides only a preliminary analytical test result. A more specific alternate chemical method must be used in order to obtain a confimed analytical result. Clinical consideration and professional judgment should be applied to any drug of abuse test result, particularly when preliminary positive results are obtained. Normal [facility] Comment on above: Performed By: #### 1 2286-1 #### [facility] [address] [place] [address] Automotive Lube Technician - [facility] [id number] Methadone Ql (U) Not detected Normal CUTOFF = 200 [facility] Comment on above: Performed By: #### 1 2286-1 #### [facility] [address] Director - [facility] [id number] Opiates Ql (U) Not detected Normal CUTOFF = 300 [facility] Comment on above: Performed By: #### 1 2286-1 #### [facility] [address] [place] [address] Automotive Lube Technician - [facility] [id number] oxyCODONE Ql (U) Not detected Normal CUTOFF = 100 [facility] Comment on above: Performed By: #### 1 2286-1 #### [facility] [address] Director - [facility] [id number] Phencyclidine Ql (U) Not detected Normal CUTOFF = 25 [facility] Comment on above: Performed By: #### 1 2286-1 #### [facility] [address] Director - Mary PORTILLOIA [id number] Tetrahydrocannabinol Ql (U) Not detected Normal CUTOFF = 50 [facility] Comment on above: Performed By: #### 1 2286-1 #### [facility] [address] [place] [address] Automotive Lube Technician - Mary PORTILLOIA [id number] HCG ( test) Ql (U)o n 09-12-2021 Beta HCG ( test) Ql (U) Negative Normal NEGATIVE [facility] Comment on above: Performed By: #### 2 106-3 #### [facility] [address] [place] [address] Automotive Lube Technician - Mary PORTILLOIA [id number] #### UAR #### [place] [address] [place] [address] Automotive Lube Technician - Mary PORITLLOIA [id number] Performed for [facility] [address] [place] [address] HCG BLOODon 09-12-2021 HCG.beta subunit Qn m[IU]/mL Normal 1-3 [facility] Comment on above: Performed By: #### 1 1579-0, 27541-7, 41449-0, 71683-1 ####[facility] [address]Medical Director - Mary Shaffer [id number] HCG.beta subunit Qnon 2021 [facility] HCG INTERPRETATION The expected values were calculated [...] 6-8 weeks 15,000-200,000 2-3 months 10,000-100,000 Normal [facility] Comment on above: Performed By: #### 1 1579-0, , , ####[facility], [place] [address]Ulyekxq Director - Mary Shaffer [id number] MAGNESIUMon 09-12-2021 Magnesium [Mass/Vol] 2.1 mg/dL Normal 1.6-2.6 [facility] Comment on above: Performed By: #### 1 1579-0, , , ####[facility], [place] [address]Ischcrx Director - Mary Shaffer [id number] TROPONIN HIGH SENSITIVITYon 09-12-2021 TNIH <3.00 Normal <=59.00 [facility] Comment on above: Result Comment: <59 pg/mL is considered a negative result. Performed By: #### T ROP2 #### [facility] [address] [place] [address] Automotive L[employer] Technician - Mary GAUTAM [id number] TSH DL <= 0.05 mIU/L Qnon TSH Qn 1.200 uIU/mL Normal 0.358-3.740 [facility] Comment on above: Performed By: #### 1 9-0, , , ####[facility] [address]Medical Director - Mary Shaffer [id number] URINALYSIS with reflex to CU LTUREon 09-12-2021 BACTERIA Normal TRACE [facility] Comment on above: Performed By: #### 2 106-3 #### [facility] [address] [place] [address] Automotive Lube Technician - Mary GAUTAM [id number] #### UAR #### [facility] [address] [place] [address] Automotive Lube Technician - Mary GAUTAM [id number] Performed for [facility] [address] [place], [place] [address] Bilirubin Ql (U) Negative Normal NEGATIVE [facility] Comment on above: Performed By: #### 2 106-3 #### [facility] [address] [place] [address] Automotive Lube Technician - Mary GAUTAM [id number] #### UAR #### [facility] [address] [place] [address] Automotive Lube Technician - Mary GAUTAM [id number] Performed for [facility] [address] [place] [address] Clarity (U) CLEAR Normal CLEAR [facility] Comment on above: Performed By: #### 2 106-3 #### [facility] [address] [place] [address] Automotive Lube Technician - Mary GAUTAM [id number] #### UAR #### [facility] [address] [place] [address] Automotive Lube Technician - Mary GAUTAM [id number] Performed for [facility] [address] [place] [address] Color (U) YELLOW Normal YELLOW [facility] Comment on above: Performed By: #### 2 106-3 #### [facility] [address] [place] [address] Automotive Lube Technician - Mary GAUTAM [id number] #### UAR #### [facility] [address] [place] [address] Automotive Lube Technician - Mary GAUTAM [id number] Performed for [facility] [address] [place] [address] Glucose Ql (U) Negative Normal NEGATIVE [facility] Comment on above: Performed By: #### 2 106-3 #### [facility] [address] [place] [address] Automotive Lube Technician - Mary GAUTAM [id number] #### UAR #### [facility] [address] [place] [address] Automotive Lube Technician - Mary GAUTAM [id number] Performed for [facility] [address] [place] [address] Hemoglobin Ql (U) Negative Normal NEGATIVE [facility] Comment on above: Performed By: #### 2 106-3 #### [facility] [address] [place] [address] Automotive Lube Technician - Mary GAUTAM [id number] #### UAR #### [facility] [address] [place] [address] Automotive Lube Technician - Mary GAUTAM [id number] Performed for [facility] [address] [place] [address] HMICRO MICROSCOPIC Normal [facility] Comment on above: Performed By: #### 2 106-3 #### [facility] [address] [place] [address] Automotive Lube Technician - Mary GAUTAM [id number] #### UAR #### [facility] [address] [place] [address] Automotive Lube Technician - Mary GAUTAM [id number] Performed for [facility] [address] [place] [address] Hyaline casts (Urine sed) [#/Area] Normal 0-8 [facility] Comment on above: Performed By: #### 2 106-3 #### [facility] [address] [place] [address] Automotive Lube Technician - Mary GAUTAM [id number] #### UAR #### [facility] [address] [place] [address] Automotive Lube Technician - Mary GAUTAM [id number] Performed for [facility] [address] [place] [address] KETONE Negative Normal NEGATIVE [facility] Comment on above: Performed By: #### 2 106-3 #### [facility] [address] [place] [address] Automotive Lube Technician - Mary GAUTAM [id number] #### UAR #### [facility] [address] [place] [address] Automotive Lube Technician - Mary GAUTAM [id number] Performed for [facility] [address] [place] [address] Leukocyte esterase Test strip Ql (U) Negative Normal TRACE [facility] Comment on above: Performed By: #### 2 106-3 #### [facility] [address] [place] [address] Automotive Lube Technician - Mary GAUTAM [id number] #### UAR #### [facility] [address] [place] [address] Automotive Lube Technician - Mary GAUTAM [id number] Performed for [facility] [address] [place] [address] Nitrite Ql (U) Negative Normal NEGATIVE [facility] Comment on above: Performed By: #### 2 106-3 #### [facility] [address] [place] [address] Automotive Lube Technician - Mary GAUTAM [id number] #### UAR #### [facility] [address] [place] [address] Automotive Lube Technician - Mary GAUTAM [id number] Performed for [facility] [address] [place] [address] pH (U) 6.5 [pH] Normal 5.5-7.5 [facility] Comment on above: Performed By: #### 2 106-3 #### [facility] [address] [place] [address] Automotive Lube Technician - Mary GAUTAM [id number] #### UAR #### [facility] [address] [place] [address] Automotive Lube Technician - Mary GAUTAM [id number] Performed for [facility] [address] [place] [address] Protein Ql (U) Negative Normal NEGATIVE [facility] Comment on above: Performed By: #### 2 106-3 #### [facility] [address] [place] [address] Automotive Lube Technician - Mary GAUTAM [id number] #### UAR #### [facility] [address] [place] [address] Automotive Lube Technician - Mary GAUTAM [id number] Performed for [facility] [address] [place], [place] [address] RBC LM.HPF (Urine sed) [#/Area] Normal 0-4 [facility] Comment on above: Performed By: #### 2 106-3 #### [facility] [address] [place] [address] Automotive Lube Technician - Mary GAUTAM [id number] #### UAR #### [facility] [address] [place] [address] Automotive Lube Technician - Mary GAUTAM [id number] Performed for [facility] [address] [place] [address] Specific gravity (U) [Rel density] 1.022 Normal 1.010-1.035 [facility] Comment on above: Performed By: #### 2 106-3 #### [facility] [address] [place] [address] Automotive Lube Technician - Mary GAUTAM [id number] #### UAR #### [facility] [address] [place] [address] Automotive Lube Technician - Mary GAUTAM [id number] Performed for [facility] [address] [place] [address] SQUAMOUS EPITHELIALS Normal 0-5 [facility] Comment on above: Performed By: #### 2 106-3 #### [facility] [address] [place] [address] Automotive Lube Technician - Mary GAUTAM [id number] #### UAR #### [facility] [address] [place] [address] Automotive Lube Technician - Mary GAUTAM [id number] Performed for [facility] [address] [place] [address] Urobilinogen Qn (U) 1.0 {Jasmyne'U}/dL Normal <=1.0 [facility] Comment on above: Performed By: #### 2 106-3 #### [facility] [address] [place] [address] Automotive Lube Technician - [facility] [id number] #### UAR #### [facility] [address] [place] [address] Automotive Lube Technician - [facility] [id number] Performed for [facility] [address] [place], [place] [address] WBC LM.HPF (Urine sed) [#/Area] Normal 0-5 [facility] Comment on above: Performed By: #### 2 106-3 #### [facility] [address] [place] [address] Automotive Lube Technician - [facility] [id number] #### UAR #### [place] [address] [place] [address] Automotive Lube Technician - [facility] [id number] Performed for [place] [address] HCG.beta subunit Qnon 2021 hCG Quant 1355 mIU/mL Normal [facility] Comment on above: Result Comment: Preg obion Reference Ranges Negative = < 5 mIU/ml [...] method. Performed By: #### 2 1198-7 #### [facility] [address] [place] [address] Hemogram and platelets WO di fferential panel (Bld)on 07-20-2021 Basophils (Bld) [#/Vol] 0.10 10*3/uL Normal 0.00-0.20 [facility] Comment on above: Performed By: #### 2 4317-0 #### [facility] [address] [place] [address] Basophils/100 WBC (Bld) 0.6 % Normal 0.0-2.0 [facility] Comment on above: Performed By: #### 2 4317-0 #### [facility] [address] [place] [address] Eosinophils (Bld) [#/Vol] 0.10 10*3/uL Normal 0.00-0.70 [facility] Comment on above: Performed By: #### 2 4317-0 #### [facility] [address] [place] [address] Eosinophils/100 WBC (Bld) 0.8 % Normal 0.0-7.0 [facility] Comment on above: Performed By: #### 2 4317-0 #### [facility] [address] [place] [address] Erythrocyte distribution width (RBC) [Ratio] 12.8 % Normal 11.0-14.8 [facility] Comment on above: Performed By: #### 2 4317-0 #### [facility] [address] [place] [address] Hematocrit (Bld) [Volume fraction] 40.2 % Normal 35.0-45.0 [facility] Comment on above: Performed By: #### 2 4317-0 #### [facility] [address] [place] [address] Hemoglobin (Bld) [Mass/Vol] 14.0 g/dL Normal 12.0-16.0 [facility] Comment on above: Performed By: #### 2 4317-0 #### [facility] [address] [place] [address] Lymphocytes (Bld) [#/Vol] 3.10 10*3/uL Normal 1.00-4.80 [facility] Comment on above: Performed By: #### 2 4317-0 #### [facility] [address] [place] [address] Lymphocytes/100 WBC (Bld) 33.8 % Normal 22.0-44.0 [facility] Comment on above: Performed By: #### 2 4317-0 #### [facility] [address] [place] [address] MCH 29.3 pcg Normal 27.0-34.0 [facility] Comment on above: Performed By: #### 2 4317-0 #### [facility] [facility] [address] [place] [address] MCHC (RBC) [Mass/Vol] 34.9 g/dL Normal 32.0-36.0 [facility] Comment on above: Performed By: #### 2 4317-0 #### [facility] [address] [place] [address] MCV (RBC) [Entitic vol] 84.0 fL Normal 80.0-97.0 M ount [facility] Comment on above: Performed By: #### 2 4317-0 #### [facility] [address] [place] [address] Monocytes (Bld) [#/Vol] 0.50 10*3/uL Normal 0.00-0.90 [facility] Comment on above: Performed By: #### 2 4317-0 #### [facility] [address] [place] [address] Monocytes/100 WBC (Bld) 5.0 % Normal 0.0-12.0 [facility] Comment on above: Performed By: #### 2 4317-0 #### [facility] [address] [place] [address] Neutrophils Absolute 5.40 K/mcL Normal 1.80-7.70 [facility] Comment on above: Performed By: #### 2 4317-0 #### [facility] [address] [place] [address] Neutrophils/100 WBC (Bld) 59.8 % Normal 40.0-70.0 [facility] Comment on above: Performed By: #### 2 4317-0 #### [facility] [address] [place] [address] Platelet mean volume (Bld) [Entitic vol] 9.2 fL Normal 6.2-12.1 [facility] Comment on above: Performed By: #### 2 4317-0 #### [facility] [address] [place] [address] Platelets (Bld) [#/Vol] 219 10*3/uL Normal 142-424 [facility] Comment on above: Performed By: #### 2 4317-0 #### [facility] [address] [place] [address] RBC (Bld) [#/Vol] 4.79 10*6/uL Normal 3.80-5.10 [facility] Comment on above: Performed By: #### 2 4317-0 #### [facility] [address] [place] [address] WBC (Bld) [#/Vol] 9.0 10*3/uL Normal 4.6-10.2 [facility] Comment on above: Performed By: #### 2 4317-0 #### [facility] [address] [place] [address] Rh immune globulin screen (B ld) [Interp]on 07-20-2021 ABO group Nom (Bld) O Normal [facility] Comment on above: Performed By: #### 1 314-4 #### [facility] [address] [place] [address] Rh Type Positive Normal [facility] Comment on above: Performed By: #### 1 314-4 #### [facility] [address] [place] [address] RhIG Candidate RhIG not indicated Normal [facility] Comment on above: Performed By: #### 1 314-4 #### [facility] [address] [place] [address] ABO group Nom (Bld) O [facility] Blood group antibody screen Ql Negative [employer] [employer] Rh Nom (Bld) Positive [facility] RhIG Candidate RhIG not indicated Tr [facility] HCG ( test) Ql (U)o n 07-19-2021 Preg Test, Ur Positive Abnormal Negative [facility] Comment on above: Performed By: #### 2 106-3 #### [facility] [address] [place] [address] HCG ( test) Ql (U)O rdered By: Sumi Watkins on 07-19-2021 Interpretation and review of laboratory results Abnormal [facility] HCG qualitative, urineOrdere d By: Sumi Watkins on 07-19-2021 HCG ( test) Ql (U) Positive Abnormal Negative [facility] HCG.beta subunit Qnon 2021 HCG Qn 1355 m[IU]/mL mIU/mL [facility] Comment on above: Reference Ranges Negative = [...] values obtained with a different immunoassay method. [facility] HCGQon 07-19-2021 HCGQ 2860.2 MIU/ML Normal less than 3 [facility] Comment on above: Result Comment: ONDINA ELLIOTT COMMENTS Less than 5 mIU/ML NEGATIVE FOR 5-25 mIU/ML BORDERLINE; RETEST IN 48 HOURS, IF INDICATED Greater than 25 mIU/ML POSITIVE FOR WEEKS POST LMP RANGE IN mIU/ML* 3-4 9-130 4-5 75-2600 5-6 [phone] 6-7 [phone] 7-12 [id number] 12-16 [id number] 16-29 1400-60078 29-41 [phone] *These ranges are from published literature and may not be appropriate for all cases. When HCG levels are above 4000 mIU/ML, distinction between normal and abnormal is poor. The rate of change (doubling time) may be helpful. (Reference: NCCLS ) Performed By: #### L 550.83445, L550.11797 #### [facility] [address]# [phone] Hemogram and platelets WO di fferential panel (Bld)on 07-19-2021 Basophils (Bld) [#/Vol] 0.10 10*3/uL [facility] Basophils/100 WBC (Bld) 0.6 % 0.0 - 2.0 % [facility] Eosinophils (Bld) [#/Vol] 0.10 10*3/uL [facility] Eosinophils/100 WBC (Bld) 0.8 % 0.0 - 7.0 % [facility] Erythrocyte distribution width (RBC) [Ratio] 12.8 % 11.0 - 14.8 % [facility] Hematocrit (Bld) [Volume fraction] 40.2 % 35.0 - 45.0 % [facility] Hemoglobin (Bld) [Mass/Vol] 14.0 g/dL 12.0 - 16.0 g/dL [facility] Interpretation and review of laboratory results Normal [facility] Lymphocytes (Bld) [#/Vol] 3.10 10*3/uL [facility] Lymphocytes/100 WBC (Bld) 33.8 % 22.0 - 44.0 % [facility] MCH (RBC) [Entitic mass] 29.3 pg [facility] MCHC (RBC) [Mass/Vol] 34.9 g/dL 32.0 - 36.0 g/dL [facility] MCV (RBC) [Entitic vol] 84.0 fL T [facility] Monocytes (Bld) [#/Vol] 0.50 10*3/uL [facility] Monocytes/100 WBC (Bld) 5.0 % 0.0 - 12.0 % [facility] Neutrophils (Bld) [#/Vol] 5.40 10*3/uL [facility] Neutrophils/100 WBC (Bld) 59.8 % 40.0 - 70.0 % [facility] Platelet mean volume (Bld) [Entitic vol] 9.2 fL [facility] Platelets (Bld) [#/Vol] 219 10*3/uL [facility] RBC (Bld) [#/Vol] 4.79 10*6/uL [facility] WBC (Bld) [#/Vol] 9.0 10*3/uL [facility] No Panel Informationon 07-19 of unknown location. An ectopic is not excluded. Clinical/hCG correlation and follow-up sonography are recommended. -------- FINAL REPORT -------- Dictated By: Srinivas Wilson Dictated Date: 07/19/2021 20:51 Assigned Physician: Srinivas Wilson Reviewed and Electronically Signed By: Srinivas Wilson Signed Date: 07/19/2021 20:54 Workstation ID: [id number] Transcribed By: Self Edit Transcribed Date: 07/19/2021 20:51 Adaptive TCR EXAMINATION TYPE: US OB LESS 14 WKS [...] No adnexal masses or free pelvic fluid. ExtrapriseE Srinivas Wilson MD - 07/19/2021 EXAMINATION TYPE: [...] By: Self Edit Transcribed Date: 07/19/2021 20:51 [facility] Radiology Study observation (narrative) [facility] No Panel InformationOrdered By: Srinivas Wilson on 07-19-2021 [facility] Work Phone: PROGESTERONEon 07-19-2021 PROGESTERONE 25.43 NG/ML Normal SEE CHART [facility] Comment on above: Result Comment: Fema [...] measure progesterone concentrations. Performed By: #### L 550.71893, L550.89384 #### [facility] [address] [place] [address]# [phone] US OB LESS 14 WKS SINGLE OR [...] Self Edit Transcribed Date: 07/19/2021 20:51 Normal [facility] US OB TRANSVAGINALon 022 US [...] Self Edit Transcribed Date: 07/19/2021 20:51 Normal [facility] Urinalysis dipstick W Reflex Culture panel (U)on 07-19-2021 Bacteria, Urine Few Abnormal None [facility] Comment on above: Performed By: #### 5 7019-2 #### [facility] [address] [place] [address] Bilirubin, Urine Negative Normal Negative [facility] Comment on above: Performed By: #### 5 7019-2 #### [facility] [address] [place] [address] Blood, Urine 3+ Abnormal Negative [facility] Comment on above: Performed By: #### 5 7019-2 #### [facility] [address] [place] [address] Clarity (U) Hazy Abnormal Clear [facility] Comment on above: Performed By: #### 5 7019-2 #### [facility] [address] [place] [address] Color (U) Yellow Normal Yellow [facility] Comment on above: Performed By: #### 5 7019-2 #### [facility] [address] [place] [address] Glucose Ql (U) Normal Normal Normal [facility] Comment on above: Performed By: #### 5 7019-2 #### [facility] [address] [place] [address] Ketones Ql (U) 80 mg/dL Abnormal Negative [facility] Comment on above: Performed By: #### 5 7019-2 #### [facility] [address] [place] [address] Leukocytes, Urine Negative Normal Negative [facility] Comment on above: Performed By: #### 5 7019-2 #### [facility] [address] [place] [address] Mucus, UA Many Abnormal None [facility] Comment on above: Performed By: #### 5 7019-2 #### [facility] [address] [place] [address] Nitrite, Urine Negative Normal Negative [facility] Comment on above: Performed By: #### 5 7019-2 #### [facility] [address] [place] [address] pH (U) 5.0 [pH] Normal 5.0-8.0 [facility] Comment on above: Performed By: #### 5 7019-2 #### [facility] [address] [place] [address] Protein (U) [Mass/Vol] 30 mg/dL Abnormal Negative [facility] Comment on above: Performed By: #### 5 7019-2 #### [facility] [address] [place] [address] RBC LM.HPF (Urine sed) [#/Area] 14 /[HPF] High 0-5 [facility] Comment on above: Performed By: #### 5 7019-2 #### [facility] [address] [place] [address] Specific [place] Urine 1.025 Normal 1.002-1.030 [facility] Comment on above: Performed By: #### 5 7019-2 #### [facility] [address] [place] [address] Squamous Epithelial, Urine Many Abnormal None [facility] Comment on above: Performed By: #### 5 7019-2 #### [facility] [address] [place] [address] Urobilinogen, Urine Normal Normal Normal [facility] Comment on above: Performed By: #### 5 7019-2 #### [facility] [address] [place] [address] WBC LM.HPF (Urine sed) [#/Area] 9 /[HPF] High 0-5 [facility] Comment on above: Performed By: #### 5 7019-2 #### [facility] [address] [place] [address] Bacteria LM.HPF (Urine sed) [#/Area] Few Abnormal None /HPF [facility] Bilirubin Ql (U) Negative Negative mg/dL [facility] [facility] Clarity (U) Hazy Abnormal Clear [facility] Color (U) Yellow Yellow [facility] Epithelial cells.squamous LM.HPF (Urine sed) [#/Area] Many Abnormal None /LPF [facility] Glucose Ql (U) Normal Normal mg/dL [facility] Hemoglobin Ql (U) 3+ Abnormal Negative [facility] Interpretation and review of laboratory results Abnormal [facility] Ketones (U) [Mass/Vol] 80 mg/dL Abnormal Negative mg/d L [facility] Leukocyte esterase Test strip Ql (U) Negative Negative WBCs/mcL [facility] Mucus Ql (Urine sed) Many Abnormal None /LPF [facility] Nitrite Ql (U) Negative Negative [facility] pH (U) 5.0 [pH] 5.0 - 8.0 [facility] Protein (U) [Mass/Vol] 30 mg/dL Abnormal Negative mg/d L [facility] RBC LM.HPF (Urine sed) [#/Area] 14 /[HPF] High [facility] Specific gravity (U) [Rel density] 1.025 [facility] [employer] (U) [Mass/Vol] Normal Normal mg/dL [facility] WBC LM.HPF (Urine sed) [#/Area] 9 /[HPF] High [facility] HCGQon 07-17-2021 HCGQ 1594.7 MIU/ML Normal less than 3 [facility] Comment on above: Result Comment: ONDINA ELLIOTT COMMENTS Less than 5 mIU/ML NEGATIVE FOR 5-25 mIU/ML BORDERLINE; RETEST IN 48 HOURS, IF INDICATED Greater than 25 mIU/ML POSITIVE FOR WEEKS POST LMP RANGE IN mIU/ML* 3-4 9-130 4-5 75-2600 5-6 [phone] 6-7 [phone] 7-12 30103-479166 12-16 39088-492538 16-29 1400-56006 29-41 [phone] *These ranges are from published literature and may not be appropriate for all cases. When HCG levels are above 4000 mIU/ML, distinction between normal and abnormal is poor. The rate of change (doubling time) may be helpful. (Reference: [facility], [facility]–1983 ) Performed By: #### L 550.71179 #### [facility] [address] [place] [address] PROGESTERONEon 07-17-2021 PROGESTERONE 3.64 NG/ML Normal SEE CHART [facility] Comment on above: Result Comment: Toni huynh Reference range: Follicular 0.1 - 1.4 ng/ml [...] measure progesterone concentrations. Performed By: #### L 550.99348 #### [facility] [address] [place] [address] GENITAL CULTUREon 04-22-2021 GENITAL CULTURE GENITAL RESULT NO NEISSERIA GONORRHOEAE ISOLATED BETA STREP RESULT NO BETA STREPTOCOCCUS ISOLATED NORMAL JOB FEW NORMAL JOB ORGANISM 1: YEAST QUANTITATION FEW Normal [facility] Comment on above: Performed By: #### M 100.86897 #### [facility] [address] [place] [address] PCR GC AND CHLAMon PCR CHLAMYDIA Not detected Normal NOT DETECTD [facility] Comment on above: Performed By: #### L 770.41587 #### [facility] [place] [address] PCR GONORRHOEAE Not detected Normal NOT DETECTD [facility] Comment on above: Performed By: #### L 770.99847 #### [facility] [address] [place] [address] HCGQon 04-13-2021 HCGQ LESS THAN 2.6 Normal less than 3 [facility] Comment on above: Result Comment: REFE EARL COMMENTS Less than 5 mIU/ML NEGATIVE FOR 5-25 mIU/ML BORDERLINE; RETEST IN 48 HOURS, IF INDICATED Greater than 25 mIU/ML POSITIVE FOR WEEKS POST LMP RANGE IN mIU/ML* 3-4 9-130 4-5 75-2600 5-6 [phone] 6-7 [phone] 7-12 53871-989505 12-16 22730-669270 16-29 1400-33615 29-41 [phone] *These ranges are from published literature and may not be appropriate for all cases. When HCG levels are above 4000 mIU/ML, distinction between normal and abnormal is poor. The rate of change (doubling time) may be helpful. (Reference: NCCLS ) Performed By: #### L 550.39636, L550.56228 #### [facility] [address] [place] [address] PROGESTERONEon 04-13-2021 PROGESTERONE 0.72 NG/ML Normal SEE CHART [facility] Comment on above: Result Comment: Fema [...] measure progesterone concentrations. Performed By: #### L 550.32715, L550.50532 #### [facility] [address] [place] [address]# [phone] CT ABDOMEN AND PELVIS WITHOU T CONTRASTon [...] spleen. Normal appearing appendix is visualized. Normal [facility] CBC W Auto Differential pane l (Bld)on 03-13-2021 Basophils (Bld) [#/Vol] 0.02 10*3/uL Normal <=0.70 [facility] Comment on above: Performed By: #### 5 7021-8 ####[place] [address] Director - Mary FarrellCLIA [id number] Basophils/100 WBC (Bld) 0.2 % Normal <=2.0 [facility] Comment on above: Performed By: #### 5 7021-8 ####[place] [address] Director - Mary FarrellCLIA [id number] Eosinophils (Bld) [#/Vol] 0.07 10*3/uL Normal <=0.70 [facility] Comment on above: Performed By: #### 5 7021-8 ####[place] [address] Director - Mary FarrellCLIA [id number] Eosinophils/100 WBC (Bld) 0.8 % Normal <=10.0 [facility] Comment on above: Performed By: #### 5 7021-8 ####[place] [address] Director - Mary DavidrellCLIA [id number] Erythrocyte distribution width (RBC) [Entitic vol] 35.8 fL Low 36.4-46.3 [facility] Comment on above: Performed By: #### 5 7021-8 ####[place] [address] Director - Maryjazmine Shaffer [id number] Hematocrit (Bld) [Volume fraction] 40.6 % Normal 37.0-47.0 [facility] Comment on above: Performed By: #### 5 7021-8 ####[facility] Director - Maryjazmine ParraCLMILO [id number] Hemoglobin (Bld) [Mass/Vol] 14.0 g/dL Normal 12.0-16.0 [facility] Comment on above: Performed By: #### 5 7021-8 ####[facility] [address] Director - Mary DavidrellCLIA [id number] Immature granulocytes (Bld) [#/Vol] 0.03 10*3/uL Normal <=0.10 [facility] Comment on above: Performed By: #### 5 7021-8 ####[place] [address] Director - Mary FarrellCLIA [id number] Immature granulocytes/100 WBC (Bld) 0.30 % Normal <=1.50 [facility] Comment on above: Performed By: #### 5 7021-8 ####[facility] Director - Mary DavidrellCLIA [id number] Lymphocytes (Bld) [#/Vol] 3.31 10*3/uL Normal 1.20-3.40 [facility] Comment on above: Performed By: #### 5 7021-8 ####[facility] Director - Mary DavidrellCLIA [id number] Lymphocytes/100 WBC (Bld) 35.8 % Normal 20.0-40.0 [facility] Comment on above: Performed By: #### 5 7021-8 ####[facility] Director - Maryjazmine HernandezrellCLIA [id number] MCH (RBC) [Entitic mass] 29.1 pg Normal 27.0-31.0 [facility] Comment on above: Performed By: #### 5 7021-8 ####[facility] Director - Mary Shaffer [id number] MCHC (RBC) [Mass/Vol] 34.5 g/dL Normal 32.0-36.0 [facility] Comment on above: Performed By: #### 5 7021-8 ####[facility] Director - Maryjazmine ParraCLIA [id number] MCV (RBC) [Entitic vol] 84.4 fL Normal 80.0-100.0 [facility] Comment on above: Performed By: #### 5 7021-8 ####[place] [address] Director - Maryjazmine Shaffer [id number] Monocytes (Bld) [#/Vol] 0.45 10*3/uL Normal 0.10-0.60 [facility] Comment on above: Performed By: #### 5 7021-8 ####[facility] Director - Mary FidelCLIA [id number] Monocytes/100 WBC (Bld) 4.9 % Normal <=8.0 [facility] Comment on above: Performed By: #### 5 7021-8 ####[facility] Director - Mary DavidrellCLIA [id number] Neutrophils (Bld) [#/Vol] 5.36 10*3/uL Normal 1.40-6.50 [facility] Comment on above: Performed By: #### 5 7021-8 ####[facility] Director - Mary DavidrellCLIA [id number] Neutrophils/100 WBC (Bld) 58.0 % Normal 50.0-70.0 [facility] Comment on above: Performed By: #### 5 7021-8 ####[place] [address] Director - Mary Shaffer [id number] Nucleated RBC (Bld) [#/Vol] 0.00 10*3/uL Normal <=0.10 [facility] Comment on above: Performed By: #### 5 7021-8 ####[facility] Director - Mary Shaffer [id number] Platelet mean volume (Bld) [Entitic vol] 11.9 fL Normal 9.0-13.0 [facility] Comment on above: Performed By: #### 5 7021-8 ####[facility] Director - Mary Shaffer [id number] Platelets (Bld) [#/Vol] 255 10*3/uL Normal 130-400 [facility] Comment on above: Performed By: #### 5 7021-8 ####[facility] Director - Mary Shaffer [id number] RBC (Bld) [#/Vol] 4.81 10*6/uL Normal 4.00-6.30 [facility] Comment on above: Performed By: #### 5 7021-8 ####[facility] Director - Mary Shaffer [id number] WBC (Bld) [#/Vol] 9.24 10*3/uL Normal 4.80-10.80 [facility] Comment on above: Performed By: #### 5 7021-8 ####[facility] Director - Mary Shaffer [id number] Comprehensive metabolic 2000 panelon 03-13-2021 Albumin [Mass/Vol] 3.9 g/dL Normal 3.4-5.0 [facility] Comment on above: Performed By: #### 3 040-3, 18664-3 ####[facility], [place] [address] Director - Mary Shaffer [id number] ALP [Catalytic activity/Vol] 88 U/L Normal 50-136 [facility] Comment on above: Performed By: #### 3 040-3, ####[facility], [place] [address] Director - Maryjazmine Shaffer [id number] ALT [Catalytic activity/Vol] 28 U/L Normal 14-59 [facility] Comment on above: Performed By: #### 3 040-3, ####[facility] Director - Mary Shaffer [id number] Anion gap [Moles/Vol] 5.0 mmol/L Normal <=15.0 [facility] Comment on above: Performed By: #### 3 -3, ####[facility], [place] [address]Ymymoyq Director - Maryjazmine HernandezrellCLMILO [id number] AST [Catalytic activity/Vol] 12 U/L Low 15-37 [facility] Comment on above: Performed By: #### 3 -3, ####[facility], [place] [address]Wmzwweu Director - Mary ParraCLMILO [id number] Bilirubin [Mass/Vol] 0.4 mg/dL Normal 0.2-1.0 [facility] Comment on above: Performed By: #### 3 040-3, ####[facility], [place] [address]Ilaygxw Director - Maryjazmine HernandezrellCLMILO [id number] Calcium [Mass/Vol] 9.0 mg/dL Normal 8.5-10.1 [facility] Comment on above: Performed By: #### 3 040-3, ####[facility] Director - Mary Shaffer [id number] Chloride [Moles/Vol] 104 mmol/L Normal 98-107 [facility] Comment on above: Performed By: #### 3 -3, ####[facility], [place] [address] [place] [address] - Mary Shaffer [id number] CO2 [Moles/Vol] 28 mmol/L Normal 21-32 [facility] Comment on above: Performed By: #### 3 -3, ####[facility] - Mary Shaffer [id number] Creatinine [Mass/Vol] 0.43 mg/dL Low 0.51-0.95 [facility] Comment on above: Performed By: #### 3 -3, ####[facility] Mary Shaffer [id number] GFR/1.73 sq M.predicted MDRD (S/P/Bld) [Vol rate/Area] mL/min/{1.73_m2} Normal >=59 [facility] Comment on above: Performed By: #### 3 -3, ####[facility] Mary Shaffer [id number] Glucose [Mass/Vol] 122 mg/dL High 74-106 [facility] Comment on above: Performed By: #### 3 040-3, ####[facility] Mary Shaffer [id number] HGFR GLOMERULAR FILTRATION RATE INTERPRETATION~The eGFR is [...] months, with or without kidney damage.~ Normal [facility] Comment on above: Performed By: #### 3 040-3, ####[facility] Director - Mary Shaffer [id number] Potassium [Moles/Vol] 3.3 mmol/L Low 3.5-5.1 [facility] Comment on above: Performed By: #### 3 -3, ####[facility] Director - Mary Shaffer [id number] Protein [Mass/Vol] 7.7 g/dL Normal 6.4-8.2 [facility] Comment on above: Performed By: #### 3 -3, 78687-0 ####[facility] Director - Mary Shaffer [id number] Sodium [Moles/Vol] 137 mmol/L Normal 136-145 [facility] Comment on above: Performed By: #### 3 -3, 81897-7 ####[facility] Director - Mary Shaffer [id number] Urea nitrogen [Mass/Vol] 10 mg/dL Normal 7-17 [facility] Comment on above: Performed By: #### 3 -3, 35247-4 ####[facility] Director - Mary Shaffer [id number] Heterophile Ab [place] Qlon 03-13 MONO SCREEN Negative Normal [facility] Comment on above: Performed By: #### 6 425-3 ####[facility] [address]Medical Director - Mary Shaffer [id number] LIPASEon 03-13-2021 Lipase [Catalytic activity/Vol] 87 U/L Normal 73-393 [facility] Comment on above: Performed By: #### 3 040-3, 15486-3 ####[facility] [address]Medical Director - Mary Shaffer [id number] RIBS LEFT UNILATERAL WITH CX Ildefonso 03-13-2021 [...] cardiopulmonary abnormality. No displaced rib fractures. Normal [facility] URINALYSIS with reflex to CU LTUREon 03-13-2021 BACTERIA Normal TRACE [facility] Comment on above: Performed By: #### U AR #### [facility] [address] [place] [address] Automotive Lube Technician - Mary GAUTAM [id number] Performed for [facility] [address] [place], [place] [address] Bilirubin Ql (U) Negative Normal NEGATIVE [facility] Comment on above: Performed By: #### U AR #### [facility] [address] [place] [address] Automotive Lube Technician - Mary GAUTAM [id number] Performed for [facility] [address] [place], [place] [address] Clarity (U) CLEAR Normal CLEAR [facility] Comment on above: Performed By: #### U AR #### [facility] [address] [place] [address] Automotive Lube Technician - Mary GAUTAM [id number] Performed for [facility] [address] [place], [place] [address] Color (U) YELLOW Normal YELLOW [facility] Comment on above: Performed By: #### U AR #### [facility] [address] [place], [place] [address] Automotive Lube Technician - Mary GAUTAM [id number] Performed for [facility] [address] [place], [place] [address] Glucose Ql (U) Negative Normal NEGATIVE [facility] Comment on above: Performed By: #### U AR #### [facility] [address] [place] [address] Automotive Lube Technician - Mary GAUTAM [id number] Performed for [facility] [address] [place], [place] [address] Hemoglobin Ql (U) Negative Normal NEGATIVE [facility] Comment on above: Performed By: #### U AR #### [facility] [address] [place] [address] Automotive Lube Technician - Mary GAUTAM [id number] Performed for [facility] [address] [place], [place] [address] HMICRO MICROSCOPIC Normal [facility] Comment on above: Performed By: #### U AR #### [facility] [address] [place], [place] [address] Automotive Lube Technician - Mary GAUTAM [id number] Performed for [facility] [address] [place], [place] [address] Hyaline casts (Urine sed) [#/Area] Normal 0-8 [facility] Comment on above: Performed By: #### U AR #### [facility] [address] [place] [address] Automotive Lube Technician - Mary GAUTAM [id number] Performed for [facility] [address] [place], [place] [address] KETONE Negative Normal NEGATIVE [facility] Comment on above: Performed By: #### U AR #### [facility] [address] [place] [address] Automotive Lube Technician - Mary GAUTAM [id number] Performed for [facility] [address] [place], [place] [address] Leukocyte esterase Test strip Ql (U) Negative Normal TRACE [facility] Comment on above: Performed By: #### U AR #### [facility] [address] [place], [place] [address] Automotive Lube Technician - Mary GAUTAM [id number] Performed for [facility] [address] [place], [place] [address] Nitrite Ql (U) Negative Normal NEGATIVE [facility] Comment on above: Performed By: #### U AR #### [facility] [address] [place], [place] [address] Automotive Lube Technician - Mary GAUTAM [id number] Performed for [facility] [address] [place], [place] [address] pH (U) 5.5 [pH] Normal 5.5-7.5 [facility] Comment on above: Performed By: #### U AR #### [facility] [address] [place], [place] [address] Automotive Lube Technician - Mary GAUTAM [id number] Performed for [facility] [address] [place], [place] [address] Protein Ql (U) Negative Normal NEGATIVE [facility] Comment on above: Performed By: #### U AR #### [facility] [address] [place], [place] [address] Automotive Lube Technician - Mary GAUTAM [id number] Performed for [facility] [address] [place], [place] [address] RBC LM.HPF (Urine sed) [#/Area] Normal 0-4 [facility] Comment on above: Performed By: #### U AR #### [facility] [address] [place], [place] [address] Automotive Lube Technician - Mary GAUTAM [id number] Performed for [facility] [address] [place], [place] [address] Specific gravity (U) [Rel density] 1.024 Normal 1.010-1.035 [facility] Comment on above: Performed By: #### U AR #### [facility] [address] [place], [place] [address] Automotive Lube Technician - Mary PORTILLOIA [id number] Performed for [facility] [address] [place], [place] [address] SQUAMOUS EPITHELIALS Normal 0-5 [facility] Comment on above: Performed By: #### U AR #### [facility] [address] [place] [address] Automotive Lube Technician - Mary PORTILLOIA [id number] Performed for [facility] [address] [place], [place] [address] Urobilinogen Qn (U) 1.0 {Jasmyne'U}/dL Normal <=1.0 [facility] Comment on above: Performed By: #### U AR #### [facility] [address] [place], [place] [address] Automotive Lube Technician - Mary GAUTAM [id number] Performed for [facility] [address] [place], [place] [address] WBC LM.HPF (Urine sed) [#/Area] Normal 0-5 [facility] Comment on above: Performed By: #### U AR #### [facility] [address] [place] [address] Automotive Lube Technician - Mary GAUTAM [id number] Performed for [facility] [address] [place], [place] [address] VIRAL RESPIRATORY PANELon Adenovirus Not detected Normal NOT DETECTED [facility] Comment on above: Performed By: #### R ESPNIMA #### [facility] [address] [place], [place] [address] Automotive Lube Technician - Mary GAUTAM [id number] Performed for [facility] [address] [place], [place] [address] B parapertussis Not detected Normal NOT DETECTED [facility] Comment on above: Performed By: #### R ESPIRA #### [facility] [address] [place], [place] [address] Automotive Lube Technician - Mary GAUTAM [id number] Performed for [facility] [address] [place], [place] [address] B pertussis Not detected Normal NOT DETECTED [facility] Comment on above: Performed By: #### R ESPIRA #### [facility] [address] [place], [place] [address] Automotive Lube Technician - Mary Parra CLIA [id number] Performed for [facility] [address] [place], [place] [address] Chlamydia pneumoniae Not detected Normal NOT DETECTED [facility] Comment on above: Performed By: #### R ESPIRA #### [facility] [address] [place], [place] [address] Autom[employer] L[employer] Technician [facility] [place] [id number] Performed for [facility] [address] [place] [address] CORONAVIRUS [id number] Not detected Normal NOT DETECTED [facility] Comment on above: Performed By: #### R ESPIRA #### [facility] [address] [place], [place] [address] Automotive Lube Technician [facility] [place] [id number] Performed for [facility] [address] [place], [place] [address] CORONAVIRUS HKU1 Not detected Normal NOT DETECTED [facility] Comment on above: Performed By: #### R ESPIRA #### [facility] [address] [place], [place] [address] Automotive Lube Technician [facility] [place] [id number] Performed for [facility] [address] [place] [address] CORONAVIRUS NL63 Not detected Normal NOT DETECTED [facility] Comment on above: Performed By: #### R ESPIRA #### [facility] [address] [place], [place] [address] Automotive Lube Technician [facility] [place] [id number] Performed for [facility] [address] [place], [place] [address] CORONAVIRUS OC43 Not detected Normal NOT DETECTED [facility] Comment on above: Performed By: #### R ESPIRA #### [facility] [address] [place], [place] [address] Automotive Lube Technician - Mary PORTILLOIA [id number] Performed for [facility] [address] [place], [place] [address] HPCR TESTING PERFORMED BY PCR METHODOLOGY Normal [facility] Comment on above: Performed By: #### R ESPIRA #### [facility] [address] [place], [place] [address] Automotive Lube Technician - Mary PORTILLOIA [id number] Performed for [facility] [address] [place], [place] [address] HPCRB TEST PERFORMED USING BIOFIRE Normal [facility] Comment on above: Performed By: #### R ESPIRA #### [facility] [address] [place] [address] Automotive Lube Technician - Mary PORTILLOIA [id number] Performed for [facility] [address] [place] [address] Human Metapneumoviru Not detected Normal NOT DETECTED [facility] Comment on above: Performed By: #### R ESPIRA #### [facility] [address] [place] [address] Automotive Lube Technician - Mary PORTILLOIA [id number] Performed for [facility] [address] [place], [place] [address] Influenza A Not detected Normal NOT DETECTED [facility] Comment on above: Performed By: #### R ESPIRA #### [facility] [address] [place] [address] Automotive Lube Technician - Mary PORTILLOIA [id number] Performed for [facility] [address] [place], [place] [address] Influenza A / H1 Normal NOT DETECTED [facility] Comment on above: Performed By: #### R ESPIRA #### [facility] [address] [place], [place] [address] Automotive Lube Technician - Mary Parra CLIA [id number] Performed for [facility] [address] [place], [place] [address] Influenza A / H3 Normal NOT DETECTED [facility] Comment on above: Performed By: #### R ESPIRA #### [facility] [address] [place] [address] Automotive Lube Technician - Mary PORTILLOIA [id number] Performed for [facility] [address] [place], [place] [address] Influenza A H1-2009 Normal NOT DETECTED [facility] Comment on above: Performed By: #### R ESPIRA #### [facility] [address] [place], [place] [address] Automotive Lube Technician - Mary PORTILLOIA [id number] Performed for [facility] [address] [place], [place] [address] Influenza B Not detected Normal NOT DETECTED [facility] Comment on above: Performed By: #### R ESPIRA #### [facility] [address] [place] [address] Automotive Lube Technician - Maryjazmine PORTILLOIA [id number] Performed for [facility] [address] [place] [address] Mycoplasma pneumonia Not detected Normal NOT DETECTED [facility] Comment on above: Performed By: #### R ESPIRA #### [facility] [address] [place] [address] Automotive Lube Technician - Mary Parra CLIA [id number] Performed for [facility] [address] [place], [place] [address] Parainfluenza 1 Not detected Normal NOT DETECTED [facility] Comment on above: Performed By: #### R ESPIRA #### [facility] [address] [place] [address] Automotive Lube Technician - Mary Parra CLIA [id number] Performed for [facility] [address] [place], [place] [address] Parainfluenza 2 Not detected Normal NOT DETECTED [facility] Comment on above: Performed By: #### R ESPIRA #### [facility] [address] [place], [place] [address] Automotive Lube Technician - [employer] CLIA [id number] Performed for [facility] [address] [place], [place] [address] Parainfluenza 3 Not detected Normal NOT DETECTED [facility] Comment on above: Performed By: #### R ESPIRA #### [facility] [address] [place] [address] Automotive Lube Technician - Mary Parra CLIA [id number] Performed for [facility] [address] [place], [place] [address] Parainfluenza 4 Not detected Normal NOT DETECTED [facility] Comment on above: Performed By: #### R ESPIRA #### [facility] [address] [place], [place] [address] Automotive Lube Technician - [facility] Hospital[facility] [id number] Performed for [facility] [address] [place], [place] [address] Rhinovirus Not detected Normal NOT DETECTED [facility] Comment on above: Performed By: #### R ESPIRA #### [facility] [address] [place] [address] Automotive Lube Technician - MaryAtlantiCare [facility] Main[facility] CampusIA [id number] Performed for [facility] [address] [place], [place] [address] RSV Not detected Normal NOT DETECTED [facility] Comment on above: Performed By: #### R ESPIRA #### [facility] [address] [place] [address] Automotive Lube Technician - MaryAtlantiCare [facility] CampusIA [id number] Performed for [facility] [address] [place], [place] [address] SARS-CoV-2 (COVID-19) RNA PETER+probe Ql (Unsp spec) Not detected Normal NOT DETECTED [facility] Comment on above: Performed By: #### R ESPIRA #### [facility] [address] [place], [place] [address] Automotive Lube Technician - MaryAtlantiCare [facility] CampusIA [id number] Performed for [facility] [address] [place], [place] [address] HCGQon 09-04-2020 HCGQ LESS THAN 2.6 Normal less than 3 [place] Comment on above: Result Comment: REFE RENCE COMMENTS Less than 5 mIU/ML NEGATIVE FOR 5-25 mIU/ML BORDERLINE; RETEST IN 48 HOURS, IF INDICATED Greater than 25 mIU/ML POSITIVE FOR WEEKS POST LMP RANGE IN mIU/ML* 3-4 9-130 4-5 75-2600 5-6 [phone] 6-7 [phone] 7-12 [id number] 12-16 [id number] 16-29 1400-20039 29-41 [phone] *These ranges are from published literature and may not be appropriate for all cases. When HCG levels are above 4000 mIU/ML, distinction between normal and abnormal is poor. The rate of change (doubling time) may be helpful. (Reference: NCCLS ) Performed By: #### L 550.97404 #### [facility] [address] [place] [address] CHEST (TWO VIEWS) - CXRon CHEST (TWO VIEWS) - CXR [place] [address] Name: DARSHANYeyoJEFF Phys: MARCO MOJICA M.D. : [birth year] Age: 25 Sex: F Acct: [id number] Loc: RAD Exam Date: 08/21/20 Status: REG CLI Radiology No.: [id number] Unit Number: [id number] Exam # Type/Exam [id number] RAD / CHEST (TWO VIEWS) - CXR [...] By: LEI MAYFIELD D.O. Tests performed at: [place] [address] Normal [facility] INSULINon 09-27-2019 INSULIN 23.2 uIU/mL Normal 2.6-24.9 [facility] Comment on above: Result Comment: Perf ormed at: - [facility] [address] [id number] Tension Machine Operator: Juan M Nielsen PhD, Phone: [phone] Performed By: #### L 800.0950, L800.1420 #### [place] [address] TESTOSFREEon 09-27-2019 TESTOSFREE 3.8 pg/mL Normal 0.0-4.2 [facility] Comment on above: Result Comment: Perf ormed at: BN - [facility] [address] [id number] Tension Machine Operator: Cait Reyes MD, Phone: [phone] Performed By: #### L 800.0950, L800.1420 #### [place] [address] CBC NO DIFon 09-21-2019 Erythrocyte distribution width (RBC) [Ratio] 12.5 % Normal 12.5-15.7 [facility] Comment on above: Performed By: #### L 200.0005 #### [facility] [address] [place] [address] Hematocrit (Bld) [Volume fraction] 40.4 % Normal 36.0-48.0 [facility] Comment on above: Performed By: #### L 200.0005 #### [facility] [address] [place] [address] Hemoglobin (Bld) [Mass/Vol] 13.9 g/dL Normal 12.0-16.0 [facility] Comment on above: Performed By: #### L 200.0005 #### [facility] [address] [place] [address] MCH (RBC) [Entitic mass] 29.7 pg Normal 28.5-32.9 [facility] Comment on above: Performed By: #### L 200.0005 #### [facility] [address] [place] [address] MCHC (RBC) [Mass/Vol] 34.3 g/dL Normal 33.0-36.0 [facility] Comment on above: Performed By: #### L 200.0005 #### [facility] [address] [place] [address] MCV (RBC) [Entitic vol] 86.7 fL Normal 80.0-99.0 [facility] Comment on above: Performed By: #### L 200.0005 #### [facility] [address] [place] [address] Platelet mean volume (Bld) [Entitic vol] 10.1 fL High 7.5-9.5 [facility] Comment on above: Performed By: #### L 200.0005 #### [facility] [address] [place] [address] PLT 219 X10(3) Normal 150-450 [facility] Comment on above: Performed By: #### L 200.0005 #### [facility] [address] [place] [address] RBC 4.66 x10(6) Normal 3.30-5.00 [facility] Comment on above: Performed By: #### L 200.0005 #### [facility] [address] [place] [address] WBCHS 6.3 x10(3) Normal 4.5-10.0 [facility] Comment on above: Performed By: #### L 200.0005 #### [facility] [address] [place] [address] FSHon 09-21-2019 FSH 7.16 mIU/mL Normal [facility] Comment on above: Result Comment: Fema le Ref. Ranges Follicular Phase: 3.5 - 12.5 mIU/mL Ovulation Phase: 4.7 - 12.5 mIU/mL Luteal Phase : 1.7 - 7.7 mIU/mL Post-Menopause : 25.8-134.8 mIU/mL Performed By: #### L 304.0170, L100.0060, L304.0140, L304.0480, L304.0180 #### [facility] [address] [place] [address] GLUCOSEon 09-21-2019 Glucose [Mass/Vol] 92 mg/dL Normal 74-106 [facility] Comment on above: Performed By: #### L 304.0170, L100.0060, L304.0140, L304.0480, L304.0180 #### - LABORATORY [address] [place] [address] LHon 09-21-2019 LH 9.12 mIU/mL Normal [facility] Comment on above: Result Comment: Toni huynh Ref. Ranges Follicular Phase : 2.4 - 12.6 mIU/mL Ovulatory Peak : 14.0 - 95.6 mIU/mL Luteal Phase : 1.0 - 11.4 mIU/mL Post-Menopausal : 7.7 - 58.5 mIU/mL Performed By: #### L 304.0170, L100.0060, L304.0140, L304.0480, L304.0180 #### [facility] [address] [place] [address] TESTOSTERONE TOon 09-21-2019 TESTOSTERONE TO 44.67 ng/dL Normal 8.40-48.1 [facility] Comment on above: Performed By: #### L 304.0170, L100.0060, L304.0140, L304.0480, L304.0180 #### [facility] [address] [place] [address] TSHon 09-21-2019 TSH 1.40 uIU/mL Normal 0.27-4.20 [facility] Comment on above: Performed By: #### L 304.0170, L100.0060, L304.0140, L304.0480, L304.0180 #### [facility] [address] [place] [address] Vital Signs Date Time Vital Sign Value Performing Clinician Facility 08-27-2024 13:02-0400 Body height 172.72 cm No Primary Care Physician [facility] 08-27-2024 13:02-0400 Body mass index (BMI) [Ratio] 35.9 kg/m2 No Primary Care Physician [facility] 08-27-2024 13:02-040 Body weight 107.16 kg No Primary Care Physician [facility] 08-27-2024 13:02-0400 Diastolic blood pressure 87 mm[Hg] No Primary Care Physician [facility] 08-27-2024 13:02-0400 Systolic blood pressure 131 mm[Hg] No Primary Care Physician [facility] 08-16-2024 15:46-0400 Body height 172.72 cm No Primary Care Physician [facility] 08-16-2024 15:46-0400 Diastolic blood pressure 93 mm[Hg] No Primary Care Physician [facility] 08-16-2024 15:46-0400 Systolic blood pressure 130 mm[Hg] No Primary Care Physician [facility] 08-16-2024 15:43-0400 Body mass index (BMI) [Ratio] 36.2 kg/m2 No Primary Care Physician [facility] [facility] 08-16-2024 15:43-0400 Body weight 108.18 kg No Primary Care Physician [facility] 08-13-2024 15:56-0400 Body height 172.72 cm No Primary Care Physician [facility] 08-13-2024 15:55-0400 Body mass index (BMI) [Ratio] 35.6 kg/m2 No Primary Care Physician [facility] 08-13-2024 15:55-0400 Body weight 106.19 kg No Primary Care Physician [facility] 08-13-2024 15:55-0400 Diastolic blood pressure 82 mm[Hg] No Primary Care Physician [facility] 08-13-2024 15:55-0400 Systolic blood pressure 130 mm[Hg] No Primary Care Physician [facility] 08-09-2024 14:19-0400 Diastolic blood pressure 88 mm[Hg] No Primary Care Physician [facility] 08-09-2024 14:19-0400 Systolic blood pressure 135 mm[Hg] No Primary Care Physician [facility] 08-09-2024 14:00-0400 Body height 172.72 cm No Primary Care Physician [facility] 08-09-2024 14:00-0400 Body mass index (BMI) [Ratio] 36.2 kg/m2 No Primary Care Physician [facility] 08-09-2024 14:00-0400 Body weight 108.18 kg No Primary Care Physician [facility] 08-03-2024 14:54-0400 Body height 172.72 cm No Primary Care Physician [facility] 08-03-2024 14:54-0400 Body mass index (BMI) [Ratio] 36 kg/m2 No Primary Care Physician [facility] 08-03-2024 14:54-0400 Body weight 107.5 kg No Primary Care Physician [facility] 08-03-2024 14:54-0400 Diastolic blood pressure 91 mm[Hg] No Primary Care Physician [facility] 08-03-2024 14:54-0400 Systolic blood pressure 139 mm[Hg] No Primary Care Physician [facility] 07-27-2024 10:15-0400 Body mass index (BMI) [Ratio] 35.6 kg/m2 No Primary Care Physician [facility] 07-27-2024 10:15-0400 Body weight 106.19 kg No Primary Care Physician [facility] 07-27-2024 10:15-0400 Diastolic blood pressure 88 mm[Hg] No Primary Care Physician [facility] 07-27-2024 10:15-0400 Systolic blood pressure 138 mm[Hg] No Primary Care Physician [facility] 07-25-2024 13:26-0400 Body temperature 97.6 [degF] No Primary Care Physician [facility] 07-25-2024 13:26-0400 Diastolic blood pressure 78 mm[Hg] No Primary Care Physician [facility] 07-25-2024 13:26-0400 Heart rate 80 /min No Primary Care Physician [facility] 07-25-2024 13:26-0400 Respiratory rate 15 /min No Primary Care Physician [facility] 07-25-2024 13:26-0400 SaO2% (BldA) [Mass fraction] 98 % No Primary Care Physician [facility] 07-25-2024 13:26-0400 Systolic blood pressure 118 mm[Hg] No Primary Care Physician [facility] 07-25-2024 11:13-0400 Body height 172.72 cm No Primary Care Physician [facility] 07-25-2024 11:13-0400 Body mass index (BMI) [Ratio] 35 kg/m2 No Primary Care Physician [facility] 07-25-2024 11:13-0400 Body weight 104.55 kg No Primary Care Physician [facility] 07-16-2024 14:24-0400 Body height 172.72 cm No Primary Care Physician [facility] 07-16-2024 14:24-0400 Body mass index (BMI) [Ratio] 35.8 kg/m2 No Primary Care Physician [facility] 07-16-2024 14:24-0400 Body weight 106.82 kg No Primary Care Physician [facility] 07-16-2024 14:24-0400 Diastolic blood pressure 76 mm[Hg] No Primary Care Physician [facility] 07-16-2024 14:24-0400 Systolic blood pressure 116 mm[Hg] No Primary Care Physician [facility] 04-12-2024 08:51-0500 Heart rate 100 /min Domenico VOSS Work Phone: [phone] [place] [address] 04-12-2024 08:18-0500 Body temperature 98.4 [degF] Domenico Long APRN-IOANA Work Phone: [facility] 04-12-2024 08:18-0500 Body weight 106.59 kg Domenico Long APRN-IOANA Work Phone: [facility] 04-12-2024 08:18-0500 Diastolic blood pressure 82 mm[Hg] Domenico Long APRN-IOANA Work Phone: [facility] 04-12-2024 08:18-0500 Respiratory rate 19 /min Domenico Long APRN-MACHINE [employer] Work Phone: [facility] 04-12-2024 08:18-0500 SaO2% (BldA) [Mass fraction] 97 % Domenico Long APRN-MACHINE [employer] Work Phone: [facility] 04-12-2024 08:18-0500 Systolic blood pressure 141 mm[Hg] Domenico Long APRN-MACHINE [employer] Work Phone: [facility] 07-02-2023 15:00-0400 Body height 172.72 cm JACKI Dotson Work Phone: [facility] 07-02-2023 15:00-0400 Body mass index (BMI) [Ratio] 34.2 kg/m2 CULLET WASHER-C Esperanza Dotson Work Phone: [facility] 07-02-2023 15:00-0400 Body weight 102.17 kg CULLET WASHER-C Esperanza Dotson Work Phone: [facility] 07-02-2023 15:00-0400 Diastolic blood pressure 82 mm[Hg] CULLET WASHER-C Esperanza Dotson Work Phone: [facility] 07-02-2023 15:00-0400 Systolic blood pressure 130 mm[Hg] CULLET WASHER-C Esperanza Dotson Work Phone: [facility] 02-21-2023 13:10-0500 Diastolic Blood Pressure Non-Invasive 73 mm[Hg] LIZ BATERS [employer]ENT-MACHINE [employer] [facility] 02-21-2023 13:10-0500 Heart rate 93 /min LIZ BATERS [employer]-MACHINE [employer] [facility] 02-21-2023 13:10-0500 Respiratory rate 16 /min LIZ BATERS [employer]ENT-MACHINE [employer] [facility] 02-21-2023 13:10-0500 Systolic Blood Pressure Non-Invasive 117 mm[Hg] LIZ BATERS [employer]ENT-MACHINE [employer] [facility] 02-21-2023 12:55-0500 Diastolic Blood Pressure Non-Invasive 65 mm[Hg] LIZ BATERS [employer]ENT-MACHINE [employer] [facility] 02-21-2023 12:55-0500 Heart rate 91 /min LIZ BATERS [employer]ENT-MACHINE [employer] [facility] 02-21-2023 12:55-0500 Respiratory rate 16 /min LIZ BATERS [employer]ENT-MACHINE [employer] [facility] 02-21-2023 12:55-0500 Systolic Blood Pressure Non-Invasive 111 mm[Hg] LIZ BATERS [employer]ENT-MACHINE [employer] [facility] 02-21-2023 12:40-0500 Diastolic Blood Pressure Non-Invasive 78 mm[Hg] LIZ BATERS [employer]ENT-MACHINE [employer] [facility] 02-21-2023 12:40-0500 Heart rate 91 /min LIZ BATERS [employer]ENT-MACHINE [employer] [facility] 02-21-2023 12:40-0500 Respiratory rate 16 /min LIZ BATERS [employer]ENT-MACHINE [employer] [facility] 02-21-2023 12:40-0500 Systolic Blood Pressure Non-Invasive 131 mm[Hg] LIZ BATERS [employer]ENT-MACHINE [employer] [facility] 02-21-2023 11:40-0500 Heart rate 71 /min LIZ BATERS [employer]ENT-MACHINE [employer] [facility] 02-21-2023 11:35-0500 Heart rate 76 /min LIZ BATERS [employer]ENT-MACHINE [employer] [facility] 02-21-2023 11:30-0500 Heart rate 75 /min LIZ BATERS [employer]ENT-MACHINE [employer] [facility] 02-21-2023 09:04-0500 Body height 172 cm LIZ BATERS [employer]ENT-MACHINE [employer] [facility] 02-21-2023 09:04-0500 Body temperature 98.6 [degF] LIZ BATERS [employer]ENT-MACHINE [employer] [facility] 02-21-2023 09:04-0500 Body weight 101 kg LIZ BATERS [employer]ENT-MACHINE [employer] [facility] 02-21-2023 09:04-0500 Body weight 34.14 kg/m2 LIZ BATERS [employer]ENT-MACHINE [employer] [facility] 02-15-2023 11:53-0500 Body temperature 98.6 [degF] AUGIE HANNAH MD [facility] 02-15-2023 11:53-0500 Body weight 101 kg AUGIE HANNAH MD [facility] 02-15-2023 11:53-0500 Diastolic Blood Pressure Non-Invasive 116 mm[Hg] AUGIE HANNAH MD [facility] 02-15-2023 11:53-0500 Heart rate 100 /min AUGIE HANNAH MD [facility] 02-15-2023 11:53-0500 Respiratory rate 16 /min AUGIE HANNAH MD [facility] 02-15-2023 11:53-0500 Systolic Blood Pressure Non-Invasive 169 mm[Hg] AUGIE HANNAH MD [facility] 2022 11:50-0500 Body temperature 97.9 [degF] Isi Martell APRN.MACHINE [employer] Work Phone: [facility] 2022 11:50-0500 Body weight 102.51 kg Isi Martell APRN.MACHINE [employer] Work Phone: [facility] 2022 11:50-0500 Diastolic blood pressure 89 mm[Hg] Isi Martell APRN.MACHINE [employer] Work Phone: [facility] 2022 11:50-0500 Heart rate 49 /min Isi Martell APRN.MACHINE [employer] Work Phone: [facility] 2022 11:50-0500 SaO2% (BldA) [Mass fraction] 96 % Isi Martell APRN.MACHINE [employer] Work Phone: [facility] 2022 11:50-0500 Systolic blood pressure 140 mm[Hg] Isi Martell APRN.MACHINE [employer] Work Phone: [facility] 09-11-2021 18:26-0400 Body height 172.7 cm Physician [facility] 09-11-2021 18:26-0400 Body mass index (BMI) [Ratio] 34.21 kg/m2 No Physician [facility] 09-11-2021 18:26-0400 Body temperature 99.1 [degF] No Physician [facility] 09-11-2021 18:26-0400 Body weight 102.06 kg No Physician [facility] 09-11-2021 18:26-0400 Diastolic blood pressure 99 mm[Hg] No Physician [facility] 09-11-2021 18:26-0400 Heart rate 136 /min No Physician [facility] 09-11-2021 18:26-0400 SaO2% (BldA) [Mass fraction] 92 % No Physician [facility] 09-11-2021 18:26-0400 Systolic blood pressure 136 mm[Hg] No Physician [facility] 07-20-2021 01:01-0400 Diastolic blood pressure 78 mm[Hg] Gabriella Ohara MD Work Phone: [facility] 07-20-2021 01:01-0400 Heart rate 89 /min Gabriella Ohara MD Work Phone: [facility] 07-20-2021 01:01-0400 Respiratory rate 16 /min Gabriella Ohara MD Work Phone: [facility] 07-20-2021 01:01-0400 SaO2% (BldA) [Mass fraction] 100 % Gabriella Ohara MD Work Phone: [facility] 07-20-2021 01:01-0400 Systolic blood pressure 122 mm[Hg] Gabriella Ohara MD Work Phone: [facility] 07-19-2021 18:15-0400 Body height 172.7 cm Gabriella Ohara MD Work Phone: [facility] 07-19-2021 18:15-0400 Body mass index (BMI) [Ratio] 34.52 kg/m2 Gabriella Ohara MD Work Phone: [facility] 07-19-2021 18:15-0400 Body weight 102.97 kg Gabriella Ohara MD Work Phone: [facility] 07-19-2021 18:08-0400 Body temperature 99 [degF] Gabriella Ohara MD Work Phone: [facility] Encounters Encounter Date Encounter Type Care Provider Facility Start: 08-27-2024 End: 08-27-2024 ambulatory No Primary Care Physician [facility] Work Phone: Start: 08-27-2024 End: 08-27-[address] Diana Leigh DO -[facility] Work Phone: Start: 08-16-2024 End: 08-16-2024 Patient encounter procedure Aaliyah Borrego [facility] -[facility] Work Phone: Start: 08-16-2024 End: 08-16-2024 ambulatory No Primary Care Physician [facility] Work Phone: Start: 08-13-2024 End: 08-13-2024 Patient encounter procedure Felicia Kaur [facility] -[facility] Work Phone: Start: 08-13-2024 End: 08-13-2024 ambulatory No Primary Care Physician [facility] Work Phone: Start: 08-09-2024 End: 08-09-2024 Patient encounter procedure Aaliyah Borrego [facility] -[facility] Work Phone: Start: 08-09-2024 End: 08-09-2024 ambulatory No Primary Care Physician [facility] Work Phone: Start: 08-03-2024 End: 08-03-2024 ambulatory No Primary Care Physician [facility] Work Phone: Start: 08-03-2024 End: 08-03-[address] Diana Leigh DO -Laboratory Specimen Work Phone: Start: 08-03-2024 End: 08-03-2024 Patient encounter procedure Aaliyah Borrego [facility] -[facility] Work Phone: Start: 08-03-2024 End: 08-03-2024 ambulatory No Primary Care Physician [facility] Work Phone: Start: 08-03-2024 End: 08-03-2024 ambulatory Diana Leigh Facility:[facility] Start: 07-27-2024 End: 07-27-2024 ambulatory No Primary Care Physician [facility] Work Phone: Start: 07-27-2024 End: 07-27-[address] Diana Legih DO -Labor[facility] Specimen Work Phone: Start: 07-27-2024 End: 07-27-[address] Diana Leigh DO -[facility] Work Phone: Start: 07-27-2024 End: 07-27-2024 ambulatory No Primary Care Physician [facility] Work Phone: Start: 07-27-2024 End: 07-27-2024 ambulatory Diana Leigh Facility:[facility] Start: 07-25-2024 End: 07-25-2024 Emergency department patient visit No Primary Care Physician -Emergency Department Work Phone: Start: 07-21-2024 End: 07-21-2024 ambulatory No Primary Care Physician [facility] Work Phone: Start: 07-21-2024 End: 07-21-[address] Diana Leigh DO -Laboratory Work Phone: Start: 07-21-2024 End: 07-21-2024 ambulatory Diana Leigh Facility:[facility] Start: 07-19-2024 End: 07-19-2024 ambulatory No Primary Care Physician [facility] Work Phone: Start: 07-19-2024 End: 07-19-2024 Patient encounter procedure Aaliyah Borrego CNM -[facility] Work Phone: Start: 07-19-2024 End: 07-19-2024 ambulatory No Primary Care Physician Facility:[facility] Start: 07-16-2024 End: 07-16-[address] Diana Leigh DO [facility] Work Phone: Start: 07-16-2024 End: 07-16-2024 ambulatory No Primary Care Physician Facility:[facility] Start: 07-15-2024 End: 07-15-2024 Emergency department patient visit MARCO MOJICA Facility:[facility] Start: 07-08-2024 End: 07-08-2024 Patient encounter procedure Aaliyah Borrego CNM -Laboratory Work Phone: Start: 07-08-2024 End: 07-08-2024 ambulatory Aaliyah Borrego Facility:[facility] Start: 07-06-2024 End: 07-06-2024 Patient encounter procedure Aaliyah Borrego CNM -Laboratory Work Phone: Start: 07-06-2024 End: 07-06-2024 ambulatory Aaliyah Borrego Facility:[facility] Start: 04-12-2024 End: 04-12-2024 Office outpatient new 45 minutes Domenico Long [employer]-MACHINE [employer] Work Phone: [facility] Comment on above: COVID-19 (Primary Dx ); Acute cough; SOB (shortness of breath); Fatigue, unspecified type; Bilateral impacted cerumen; At increased risk of exposure to COVID-19 virus; Possible ; PND (post-nasal drip); Non-recurrent acute suppurative otitis media of both ears without spontaneous rupture of tympanic membranes Start: 03-01-2024 End: 03-01-2024 ambulatory Aaliyah Borrego Facility:[facility] Start: 02-01-2024 End: 02-01-2024 ambulatory No Primary Care Physician Facility:[facility] Start: 01-02-2024 End: 01-02-2024 ambulatory No Primary Care Physician Facility:[facility] Start: 12-04-2023 End: 12-04-2023 ambulatory Marco Mojica Facility:[facility] Start: 10-30-2023 End: 10-30-2023 ambulatory Marco Mojica Facility:[facility] Start: 10-17-2023 End: 10-17-2023 ambulatory Marco Mojica [facility] Start: 09-19-2023 End: 09-19-2023 ambulatory Marco Mojica Facility:[facility] Start: 07-02-2023 End: 07-02-2023 ambulatory 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 WASHER-C Esperanza Dotson Work Phone: [facility] Work Phone: Start: 07-02-2023 End: 07-02-2023 Patient encounter procedure CULLET WASHER-C Esperanza Dotson Work Phone: [facility]-Laboratory, Specimen Work Phone: Start: 07-02-2023 End: 07-02-2023 Patient encounter procedure CULLET WASHER-C Esperanza Dotson Work Phone: [facility] Work Phone: Start: 03-31-2023 ambulatory CARLEE CARRASCO [employer]MACHINE [employer] Facility:B Start: 02-21-2023 End: 02-21-2023 ambulatory LIZ ALBERTO [employer]-MACHINE [employer] Facility:A Start: 02-21-2023 End: 02-21-2023 Patient encounter procedure LIZ BATERS [employer]ENT-MACHINE [employer] [facility] Start: 02-20-[address] MARCO MOJICA MD Facil ity:A Start: 02-19-2023 ambulatory LIZ BATERS [employer]ENT-MACHINE [employer] Fa cility:A Start: 02-19-2023 End: 02-20-2023 ambulatory LIZ AMINAHERS [employer]-MACHINE [employer] Facility:[facility] Start: 02-19-2023 End: 02-19-2023 Patient encounter procedure LIZ BURRERS [employer]ENT-MACHINE [employer] [facility] Start: 02-15-2023 End: 02-15-2023 Emergency department patient visit DR MARCO MOJICA MD Facility:[facility] Start: 02-15-2023 End: 02-15-2023 Emergency department patient visit AUGIE HANNAH MD [facility] Start: 05-30-2022 End: 05-31-2022 ambulatory CATY BYRNE MD~[id number] Facility:[facility] Start: 03-07-2022 End: 03-07-[address] MARCO MOJICA MD [facility] Start: 02-06-2022 Telephone encounter Isi Martell APRN.MACHINE [employer] Work Phone: [facility] Comment on above: Results Start: 2022 ambulatory FC-ISI MARTELL Fa cility:[facility] Start: 2022 End: 2022 Subsequent hospital visit by physician Provider [facility] Start: 2022 End: 2022 ambulatory MARCO MOJICA Facility:[facility] Start: 2022 End: 2022 Patient encounter procedure Isi Martell APRN.MACHINE [employer] Work Phone: [facility] Comment on above: Dysuria (Primary Dx) ; Vaginal discharge Start: 09-12-2021 End: 09-12-2021 ambulatory NONE NONE Facility:[facility] Start: 09-11-2021 End: 09-11-2021 Emergency department patient visit NO PCP PHYSICIAN [facility] Start: 09-11-2021 End: 09-11-2021 Emergency department patient visit No Physician [facility] Start: 09-11-2021 End: 09-11-2021 Evaluation and management of inpatient No Physician [facility] Start: 07-19-2021 End: 07-20-2021 Emergency department patient visit GABRIELLA OHARA [facility] Start: 07-19-2021 End: 07-20-2021 Emergency department patient visit Gabriella Ohara MD Work Phone: [facility] Comment on above: Miscarriage (Primary Dx) Start: 07-19-2021 End: 07-20-2021 Evaluation and management of inpatient Gabriella Ohara MD Work Phone: [facility] Start: 07-19-2021 End: 07-19-2021 Subsequent hospital visit by physician Dat Morrow MD Work Phone: [facility] Comment on above: N92.5 Start: 07-17-2021 End: 07-17-2021 Subsequent hospital visit by physician Dat Morrow MD Work Phone: [facility] Comment on above: N92.5 Start: 03-13-2021 End: 03-14-2021 ambulatory NONE NONE Facility:[facility] Start: 03-08-2021 End: 03-08-2021 Patient encounter procedure GILLIAN Marisel [facility] Start: 04-02-2020 Patient encounter procedure Lencho Solis PA-C Work Phone: [facility] Start: 04-02-2020 Progress Note Lencho Joiner-C Work Phone: [facility] Procedures Date Procedure Procedure Detail Performing Clinician Start: 08-03-2024 Methadone measurement, urine No Primary Care Physician Start: 07-27-2024 Gram stain microscopy N o Primary Care Physician Start: 07-27-2024 Source specific culture No Primary Care Physician Start: 07-25-2024 Urine culture No Primar y Care Physician Start: 07-25-2024 Urnls dip stick/tabl et reagent auto microscopy No Primary Care Physician Start: 07-25-2024 Estimated creatinine clearance No Primary Care Physician Start: 07-25-2024 Transvaginal obstetr ic ultrasonography No Primary Care Physician Start: 07-19-2024 Serum progesterone measurement No Primary Care Physician Comment on above: Follicular phase 0.1 - 0.9 Luteal phase 1.8 - 23.9 Ovulation phase 0.1 - 12.0 First trimester 11.0 - 44.3 Second trimester 25.4 - 83.3 Third trimester 58.7 - 214.0 Postmenopausal 0.0 - 0.1Performed at: [facility], [place] [id number] Director: Juan M Nielsen PhD, Phone: [phone] Start: 07-19-2024 Transvaginal obstetr ic ultrasonography No Primary Care Physician Start: 07-15-2024 Antibody screen MARCO ROMERO Comment on above: Order Comment: Speci men Type: BLOOD SPECIMEN Ordering Facility: [facility] Address: [address] [place] [address] Performed By: #### [place], [id number] #### [facility] CLIA [id number] [address] [place] [id number] [place] Start: 04-12-2024 Urine test visual color cmprsn meths Domenico Long [employer]ENT-[facility] Work Phone: Start: 04-12-2024 EAR CERUMEN REMOVAL [facility] demetrio Long [employer]ENT-[facility] Work Phone: Start: 04-12-2024 Iaadiadoo influenza [facility] demetrio Long [employer] SPECIAL AGENT-[facility] Work Phone: Start: 04-12-2024 SARS-CoV-2 (COVID-19 ) Ag [Presence] in Respiratory specimen by Rapid immunoassay Domenico Long APRN-[facility] Work Phone: Start: 07-02-2023 Genital Culture CULLET WASHER-C Camila Dotson Work Phone: Start: 07-02-2023 Investigation of tra nsfusion reaction CULLET WASHER-C Esperanza Dotson Work Phone: Start: 2022 Bacteria identified in Urine by Culture Isi Martell APRN.MACHINE [employer] Work Phone: Start: 2022 BACTERIAL VAGINOSIS NAAT Isi Martell [employer]ENT.MACHINE [employer] Work Phone: Start: 2022 GONORRHEA/CHLAMYDIA NAAT Isi Martell [employer]ENT.MACHINE [employer] Work Phone: Start: 2022 TRICHOMONAS VAGINALIS NAAT Isi Martell [employer] AGENT.MACHINE [employer] Work Phone: Start: 2022 Urine test visual color cmprsn meths Isishon Martell [employer] AGENT.MACHINE [employer] Work Phone: Start: 07-20-2021 Antibody screen GABRIELLA MURRIETA Comment on above: Performed By: #### 1 [id number] #### [facility] [address] [place] [address] Start: 07-19-2021 Antibody screen rbc each serum technique Lucian Bae PA Work Phone: Start: 07-19-2021 CBC W Auto Different ial panel - Blood Lucian Bae PA Work Phone: Start: 07-19-2021 Gonadotropin chorion ic quantitative Lucian Bae PA Work Phone: Start: 07-19-2021 Us uterus 1 4 wk transabdl 03/10 gestat Lucian CULLEN Work Phone: Start: 07-19-2021 Urine test visual color cmprsn meths Lucian Bae PA Work Phone: Start: 07-19-2021 Urnls dip stick/tabl et reagent auto microscopy Lucian Bae PA Work Phone: None (qualifier value) LIZ ALBERTO [employer]ENT-MACHINE [employer] Plan of Treatment Date Care Activity Detail Author Start: 2047 Zoster Vaccines (1 of 2) Zoste r Vaccines (1 of 2) [facility] Start: 08-27-2024 CBC W Auto Different ial panel - Blood [facility] Start: 08-27-2024 Hemoglobin A1c/Hemoglobin.total in Blood [facility] System Start: 08-27-2024 Hepatitis C antibody measurement [facility] Start: 08-27-2024 Rubella IgG measurement [facility] Start: 08-27-2024 Serologic test for syphilis [facility] Start: 08-27-2024 [facility] Start: 08-27-2024 Procedure [facility] Start: 05-18-2025 Bacteria identified in Urine by Culture Urine Culture [facility] Start: 07-25-2024 [facility] Start: 07-25-2024 [facility] Start: 11-09-2023 COVID-19 Vaccine ( season) COVID-19 Vaccine ( season) [facility] Start: 11-09-2023 Influenza vaccination Influenza Vacc ine (#1) [facility] Start: 11-08-2022 Influenza vaccination Influenza Vacc ine (#1) [facility] Start: 03-10-2022 [facility] Start: 2022 End: 04-06-2022 Bacteria identified in Urine by Culture URINE CULTURE Microbiology Routine Dysuria Expected: 2022, Expires: 04/06/2022 [facility] Work Phone: Comment on above: Expected: 2022 , Expires: 04/06/2022 Start: 2022 End: 04-06-2022 Chlamydia trachomatis+Neisseria gonorrhoeae DNA [Presence] in Urine by PETER with probe detection GC/CHLAMYDIA AMPLIF, URINE Microbiology Routine Dysuria Vaginal discharge Expected: 2022, Expires: 04/06/2022 [facility] Work Phone: Comment on above: Expected: 2022 , Expires: 04/06/2022 Start: 11-08-2021 Influenza vaccination [facility] Start: 07-19-2021 Adolescent depressio n screening assessment Depression Screening [facility] Start: 07-19-2021 Hepatitis C screening Hepatitis C Sc reening [facility] Start: 07-19-2021 HIV screening HIV Screening [facility] Start: 07-19-2021 Screening for Chlamy edin trachomatis Gonorrhea/Chlamydia Screening [facility] Start: 07-19-2021 Social Influencers o f Health Screening Social Influencers of Health Screening [facility] Start: 03-10-2021 DEPRESSION ASSESSMENT DEPRESSION ASS ESSMENT [facility] Start: 11-10-2019 DTaP/Tdap/Td Vaccine s (2 - Td or Tdap) DTaP/Tdap/Td Vaccines (2 - Td or Tdap) [facility] Start: 2018 PAP TESTING PAP TESTING [facility] Start: 2018 Screening for malign ant neoplasm of cervix [facility] Start: 02-05-2016 DTaP,Tdap,and Td Vac cines (1 - Tdap) DTaP,Tdap,and Td Vaccines (1 - Tdap) [facility] Start: 02-05-2016 Hepatitis B Vaccines (1 of 3 - 19+ 3-dose series) Hepatitis B Vaccines (1 of 3 - 19+ 3-dose series) [facility] Start: 02-05-2016 Pneumococcal Vaccine : Pediatrics and At-Risk Adult Patients (1 of 2 - PCV) Pneumococcal Vaccine: Pediatrics and At-Risk Adult Patients (1 of 2 - PCV) [facility] Start: 02-05-2016 Urine microalbumin profile [facility] Start: 2015 HEPATITIS C SCREENING HEPATITIS C [facility] Start: 2015 Hepatitis C screening Hepatitis C [facility] Start: 2015 HIV SCREENING HIV SCREENING [facility] Start: 2011 PEDS TO ADULT TRANSI TION ANNUAL ASSESSMENT PEDS TO ADULT TRANSITION ANNUAL ASSESSMENT [facility] Start: 2010 Varicella vaccination Varicell a Vaccines (1 of 2 - 13+ 2-dose series) [facility] Start: 2009 Adult depression scr ning assessment DEPRESSION SCREENING [facility] Start: 2009 PEDS TO ADULT TRANSI TION INITIAL DISCUSSION PEDS TO ADULT TRANSITION INITIAL DISCUSSION [facility] Start: 02-05-2008 HPV VACCINE (1 - 2-d ose series) HPV VACCINE (1 - 2-dose series) [facility] Start: 02-05-2008 HPV Vaccines (1 - 2- dose series) HPV Vaccines (1 - 2-dose series) [facility] Start: 2007 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 (1 of 2 - Risk Bexsero 2-dose series) MENINGOCOCCAL B: Consider based on risk (1 of 2 - Risk Bexsero 2-dose series) [facility] Start: 2006 HPV Vaccine (1 - 2-d ose series) HPV Vaccine (1 - 2-dose series) [facility] Start: 2002 COVID-19 VACCINE (#1) COVID-19 VACCI NE (#1) [facility] Start: 2002 COVID-19 Vaccine (1) COVID-19 Vaccin e (1) [facility] Start: 1998 MMR Vaccines (1 of 1 - Standard series) MMR Vaccines (1 of 1 - Standard series) [facility] Start: 1997 COVID-19 Vaccine (#1) COVID-19 Vacci ne (#1) [facility] Start: 1997 HEPATITIS B (1 of 3 - 3-dose series) HEPATITIS B (1 of 3 - 3-dose series) [facility] Start: 1997 Hepatitis B Vaccine (1 of 3 - 3-dose series) Hepatitis B Vaccine (1 of 3 - 3-dose series) [facility] Start: 1997 HIV screening HIV Screening [facility] Start: 1997 Lipid panel Lipid Panel [facility] Start: 1997 Yearly Adult Physical Yearly Adult P hycal [facility] BACTERIAL VAGINOSIS AMPLIFICATION BACTERIAL VAGINOSIS AMPLIFICATION Lab Routine Vaginal discharge Ordered: 2022 [facility] Work Phone: Comment on above: Ordered: 2022 HOMER / TRICHOMONA S AMPLIFICATION HOMER / TRICHOMONAS AMPLIFICATION Microbiology Routine Vaginal discharge Ordered: 2022 [facility] Work Phone: Comment on above: Ordered: 2022 CBC W Auto Different ial panel - Blood [facility] Chlamydia deoxyribon ucleic acid detection [facility] Chlamydia deoxyribon ucleic acid detection [facility] Drugs identified in Urine by Screen method [facility] Drugs identified in Urine by Screen method [facility] Drugs identified in Urine by Screen method [facility] Erythrocyte mean corpuscular volume determination [facility] Hematocrit [Volume Fraction] of Blood [facility] Hemoglobin [Mass/vol ume] in Blood [facility] Hemoglobin A1c/Hemoglobin.total in Blood [facility] Hepatitis B virus mackay rface Ag [Presence] in Serum [facility] Hepatitis C antibody measurement [facility] Leukocytes [#/volume ] in Blood [facility] Liquid based cervica l cytology screening [facility] Mean corpuscular hemoglobin concentration determination [facility] Mean corpuscular hemoglobin determination [facility] Neutrophil count [facility] Neutrophil percent differential count [facility] Patient referral 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 2022 Unknown [id number] 2019 Unknown [employer] PPO [id number] 2019-Present [phone] [address] [place] [address] PPO [id number]. [id number] 2016 Private Health Insurance [facility] [id number] 2016-Present [address] [address] [place] [address] [id number]. [id number] 2016 Private Health Insurance [id number] .[id number]. [id number] 1997 Unknown [id number] 2.16.840.1.317559.3.579.2. 1143 1997 Unknown [id number] 2.16.840.1.165438.3.579.2. 1143 1997 Unknown [id number] 2.16.840.1.176057.3.579.2. 419 1997 Unknown [id number] 2.16.840.1.987282.3.579.2. 419 1997 Unknown [id number] 2.16.840.1.900899.3.579.2. 627 1997 Unknown [id number] 2.16.840.1.805952.3.579.2. 627 1997 Unknown [id number] 2.16.840.1.998490.3.579.2. 627 1997 Unknown [id number] 2.16.840.1.782185.3.579.2. 627 1997 Unknown [id number] 2.16.840.1.314131.3.579.2. 627 1997 Unknown [id number] 2.16.840.1.027842.3.579.2. 627 1959 Private Health Insurance [id number] Unknown [id number] 2.16.840.1.687825.3.579.2. 283 Unknown [id number] 2.16.840.1.864490.3.579.2. 462 Unknown [id number] 2.16.840.1.463945.3.579.2. 462 Unknown [id number] 2.16840.1.411405.3.579.2. 462 Unknown [id number] 2.16840.1.930494.3.579.2. 462 Unknown [id number] 2.16840.1.724456.3.579.2. 462 Unknown [id number] 2.840.1.485147.3.579.2. 462 Unknown [id number] 2.840.1.562514.3.579.2. 462 Unknown [id number] 2.840.1.043485.3.579.2. 462 Unknown [id number] 2.840.1.855296.3.579.2. 462 Unknown [id number] 2.840.1.281505.3.579.2. 462 Unknown [id number] 2.840.1.046995.3.579.2. 462 Unknown [id number] 2.840.1.049684.3.579.2. 462 Unknown [id number] 2.840.1.396507.3.579.2. 462 Unknown [id number] 2.840.1.013424.3.579.2. 462 Unknown [id number] 2.840.1.741791.3.579.2. 462 Unknown [id number] 2.840.1.837554.3.579.2. 462 Unknown [id number] 2.840.1.326885.3.579.2. 462 Unknown [id number] 2.840.1.027164.3.579.2. 462 Unknown [id number] 2.840.1.422675.3.579.2. 462 Unknown [id number] 2.840.1.440168.3.579.2. 462 Social History Date Type Detail Facility Start: 04-20-2020 End: 02-15-2023 Never smoked tobacco (finding) [facility] Sex Assigned At [facility] Start: 06-22-2020 End: 07-27-2024 Tobacco smoking status NHIS Ex-smoker [facility] Start: 06-22-2020 End: 04-12-2024 Tobacco use and exposure Smokeless tobacco non-user [facility] Start: 1995 Sex Assigned At Not on file [facility] Start: 07-19-2021 Alcohol intake Lifetime non-d juan jose (finding) [facility] Start: 07-19-2021 History SDOH Alcohol Frequency 1 [facility] Start: 05-23-2020 End: 2022 Exposure to SARS-CoV-2 (event) Not sure [facility] History of tobacco use Current smoker [facility] Start: 2022 Alcohol intake Ex-drinker (finding) [facility] Start: 2022 End: 04-12-2024 History of Social function [facility] Start: 07-08-2017 End: 04-12-2024 Tobacco use panel [facility] National Score (1-100), lower number is lower risk Not on file [facility] Tobacco Nicotine Use: Va ping Product in Last 90 Days. Type: Electronic Cigarettes (Vaping). [facility] Start: 1995 Sex Assigned At Female [facility] Start: 04-12-2024 Tobacco smoking stat us MSIS Occasional tobacco smoker [facility] Work Phone: History of tobacco use Cigarette Smoker U [facility] Work Phone: Functional Status Date Assessment Result Facility 02-21-2023 [facility] 02-[facility]-2023 Functional Status [facility] 02-15-2023 Functional Status Independent [facility] 12-09-2023 Functional Status Standard Safet y ID band on, Call device within reach, Wheels locked, Upper/Half-Length side-rails up, Bedside Cart Locked, Safety level maintained [facility] Mental Status Date Assessment Result Facility 02-21-2023 Mental Status Orientation Oriented x 4 [facility] 02-15-2023 Mental Status Orientation Oriented x 4 [facility] 02-15-2023 Mental Status [facility] Clinical Notes 04-02-2020 to 08-16-2024 Note Date & Type Note Facility 08-16-2024 Progress note [facility] 08-16-2024 Progress note Note Date/Time August 16, 2024 4:08pm [facility] [address], [address] [place] [address] OFFICE VISIT Date of Service: 08/16/24 MR#: [id number] Acct: [id number] Name: JEFF RUSHING Rep #: [id number] : 1995 Provider: SALLIE Borrego Age/Sex: 29/F [place] [facility] [place]: Signed Intake Vital Signs 07/27/24 11:04 08/13/24 15:56 08/16/24 15:43 08/16/24 15:46 Height 5 ft 8 in 5 ft 8 in 5 ft 8 in 5 ft 8 in Weight: 238 lb 8 oz BMI 36.2 BP 145/87 H 130/93 H Intake Visit Reasons: 10wk ob per JV Beam Doffer Required: No Is patient in pain?: No Allergies Iodinated Contrast Media Allergy (Mild, Verified 08/16/24 15:44) Hives Medications ?Medication ?Instructions ?Recorded ?Confirmed ?Type progesterone micronized 200 mg 400 mg (2 x 200 mg) vag inal ONCE 07/06/24 08/16/24 Rx capsule (Prometrium) #60 caps aspirin 81 mg tablet,delayed 81 mg PO QDAY 07/16/24 History release (Adult Low Dose Aspirin) multivit-min no.71-iron fum 28 cap PO 07/16/24 5 History mg-folate no.1 1 mg-dha 300 mg capsule (PNV-Arapaho) cephalexin 500 mg capsule 500 mg PO Q12H 5 days #10 ca ps 07/25/24 08/16/24 Rx ondansetron 4 mg disintegrating 4 mg PO Q6H PRN nausea and 07/27/24 08/16/24 Rx tablet vomiting #30 tabs Last Menstrual Period: 05/29/24 Zika: Zika virus screening: Negative : No PFSH PFSH Medical History Recurrent loss Trichomonal vaginitis Seasonal allergies Shingles Cyst of spleen Surgical History [place] teeth removed Family History Grandmother Throat cancer, Onset Age: 68 Maternal Grandfather Lung cancer Maternal, smoker-onset age unknown Father Diabetes Hypertension Myocardial infarction Social History adopted: No household members: significant other housing: house current occupational status: employed 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 Quit Vaping 07/06/24 quit status: quit date established alcohol intake: current alcohol intake frequency: holidays/special occasions only details: socially - but not while substance use type: does not use, former substance user Date of last use: 4 years ago and marijuana well-balanced diet: daily or most days caffeine: Yes Type: carbonated beverages Number of servings: 1 eating out: rarely or never during the past year weight has: increased > 10 lbs what type of physical activity do you participate in: none whitney/mormon: Christianity seatbelt use: always do you feel safe at home: Yes additional social history: Significant other - Franck History 3 Elective abortions Hx Para 0 Spontaneous abortions 2 Hx # Term Pregnancies Ectopic pregnancies Hx # Pregnancies Multiple births # of living children 0 Past Pregnancies Del. Date Name GA/Weeks Outcome Route Bth Weight Infant Gen Labor Lgth Anesthesia Del Locatn Provider FOB 06/10/20 chemical 4 spontaneous 07/16/212021 5 spontaneous HPI 10wk ob per JV Details: JEFF RUSHING is a 29 year old who presents for routine OB visit. OB Visit JYOTHI Calculator Estimated Delivery Date Method Current WG Current Estimate 03/13/25 Ultrasound #1 10w 1d Other Estimates 03/05/25 LMP (Certain) 11w 2d 03/17/25 Ultrasound #2 9w 4d Expected Delivery Route/Plan Labor Preferences- CB/BF classes: [] labor support person: [] labor intervention preferences: [] pain management options preferred: [] cut cord/dad catch: [] : [] PP control planned: [] discussed possible routes of delivery and associated risks: [] special requests: [] Specific Issue/Plans Covid status: [] Flu vaccine: [] Tdap vaccine: [] Rhogam: [] LARC form signed: [] Problem list reviewed and updated with the most current plan of care details and appropriate orders placed. Relevant counseling for the gestational age provided. Continue routine care and follow up unless otherwise noted in visit notes/problem list details Initial Weight: Not Recorded Date -?-?-?-?-?-?-?-?-?-?-?-?- EGA Weight BP Urine Prot -?-?-?-?-?-?-?-?-?-?-?-?- Glucose FHR FuHt Pres Dilation -?-?-?-?-?-?-?-?-?-?-?-?- Effaced St Visit Note 07/27/24 -?-?-?-?-?-?-?-?-?-?-?-?- 7w 2d 234 lb 2 oz 138/88 -?-?-?-?-?-?-?-?-?-?-?-?- 124 -?-?-?-?-?-?-?-?-?-?-?-?- JV- CRL measurin g 6 weeks 5 days with heart tones. last ultrasound was in ER and was measuring 7 weeks 0 days. JYOTHI based on that us. still having bleeding. there is a 0.77cm MIGUEL. RTO in one week for repeat ultrasound. stop baby asa, continue progesterone. 08/03/24 -?-?-?-?-?-?-?-?-?-?-?-?- 8w 2d 237 lb 139/91 Negative -?-?-?-?-?-?-?-?-?-?-?-?- Negative 162 -?-?-?-?-?-?-?-?-?-?-?-?- KW- Rescan today . measuring 1.49cm. cons with previous scan. had some spotting last week that stopped on friday. No other concerns will RTO in one week for another scan. 08/09/24 -?-?-?-?-?-?-?-?-?-?-?-?- 9w 1d 238 lb 8 oz 140/98 135/88 -?-?-?-?-?-?-?-?-?-?-?-?- 180 -?-?-?-?-?-?-?-?-?-?-?-?- KW- Work in for spotting. FHT noted on US and measuring 1.99cm- cons with previous scan. 08/13/24 -?-?-?-?-?-?-?-?-?-?-?-?- 9w 5d 234 lb 2 oz 130/82 Nega tive -?-?-?-?-?-?-?-?-?-?-?-?- Negative 176 -?-?-?-?-?-?-?-?-?-?-?-?- - brown discha rge lightening. +FHT. 08/16/24 -?-?-?-?-?-?-?-?-?-?-?-?- 10w 1d 238 lb 8 oz 145/87 130/93 Negative -?-?-?-?-?-?-?-?-?-?-?-?- Negative 176 -?-?-?-?-?-?-?-?-?-?-?-?- KW- no vb/luiza wallace. is going to start doing home BPs. is leaving for vacation on friday. ACOG First Trimester First Trimester: Desire for , Alcohol, Tobacco Cessation, Illicit/Recreational Drug/Substance Use, Intimate Partner Violence, Barriers to care, Unstable Housing, Communication Barriers, Environmental/Work Hazards, Anticipated Course of Care, Toxoplasmosis Precations, Use of Any medications, Sexual activity, Exercise, Dental Care, Sauna/Hot tub use, Seat Belt use, Childbirth classes/Hospital facilities, Travel, Indications for Ultrasound and Screening for Aneuploidy; Discussed ROS Const Reports system reviewed and no additional complaints, except as documented Eyes Reports system reviewed and no additional complaints, except as documented ENT Reports system reviewed and no additional complaints, except as documented Card Reports system reviewed and no additional complaints, except as documented Resp Reports system reviewed and no additional complaints, except as documented GI Reports system reviewed and no additional complaints, except as documented, Denies nausea and Denies vomiting Reports system reviewed and no additional complaints, except as documented Musc Reports system reviewed and no additional complaints, except as documented Skin/Breast Reports system reviewed and no additional complaints, except as documented Neuro Yes system reviewed and no additional complaints, except as documented Psych Reports system reviewed and no additional complaints, except as documented Endo Reports system reviewed and no additional complaints, except as documented David/Lymph Reports system reviewed and no additional complaints, except as documented Aller/Immun Reports system reviewed and no additional complaints, except as documented Exam Const General: cooperative, healthy appearing and no acute distress Orientation: alert, awake and oriented x3 Neck Neck: normal visual inspection and full ROM Resp Effort & Inspection: normal respiratory effort, able to speak in complete sentences and symmetric chest movement GI Inspection: normal to inspection Palpation: soft and other Other: gravid Skin General: no rashes or lesions noted Neuro General: patient alert, patient awake and patient oriented x3 Cognition: normal cognition Speech: speech normal Gait: normal gait Motor: muscle tone normal throughout Extrem General: normal to inspection and full ROM Psych Appearance: grossly normal Mental Status: mental status grossly normal Mood: congruent mood Affect: normal affect Speech and Movement: speech and movement normal Attitude: cooperative Thought Process: normal Thought Content: normal Judgment: judgment good Results POC Urinalysis 2 Dip (Clinic) Office Urine Glucose Negative Last Edit by Rneetta Wolf on 08/16/24 15:51 Office Urine Protein Negative Last Edit by Renetta Wolf on 08/16/24 15:51 Coding Level of Care Code OB Routine Diagnoses Spotting in early O26.859 Obesity affecting O99.210 History of recurrent miscarriages N96 Supervision of high-risk O09.90 10 weeks gestation of Z3A.10 Weeks of gestation: 10 weeks History of marijuana use F12.91 History of nicotine vaping Z87.891 Former smoker, stopped smoking in distant past Z87.891 Anxiety F41.9 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.90 Bicornuate uterus Q51.3 Hemorrhagic cyst of ovary N83.209 Vaginal discharge N89.8 PCOS (polycystic ovarian syndrome) E28.2 Assessment and Plan Assessment and Plan (1) Spotting in early : Status: Acute Comment: HCGx2, formal US (2) Obesity affecting : Status: Acute Comment: HGBA1c (3) History of recurrent miscarriages: Status: Acute Comment: 2020 chemical, week miscarriage, APL neg in 2023 (4) Supervision of high-risk : Status: Acute Comment: , JYOTHI 03/05/25, FOFranci Juárez (5) : Status: Acute Qualifiers: Weeks of gestation: 10 weeks Qualified Code(s): Z3A.10 - 10 weeks gestation of Comment: discussed NIPT & Carrier testing-undecided (6) History of marijuana use: Status: Acute Comment: last used 4 yrs ago, discussed tox screen initial & random Neg @ [facility] (7) History of nicotine vaping: Status: Acute Comment: Quit 07/06/24 (8) Former smoker, stopped smoking in distant past: Status: Acute Comment: Quit 2021 (9) Anxiety: Status: Acute (10) Ziatw-Ugjskhpur-Kqqud syndrome: Status: Acute (11) at early stage: Status: Acute (12) Bicornuate uterus: Status: Acute (13) Hemorrhagic cyst of ovary: Status: Acute (14) Vaginal discharge: Status: Acute (15) PCOS (polycystic ovarian syndrome): Status: Acute Comment: per OAR Letrozole 2.5mg 12/07. conceived naturally Orders: Orders POC Urinalysis 2 Dip (Clinic) Today Plan Details Additional Comments: ACOG trimester education reviewed and updated. see problem list details for updated plan management information and see below for orders placed at this visit. GA appropriate handout given. 08/16/24 9509 <Electronically signed by Aaliyah maciel CNM> Date _ Aaliyah Borrego CNM Cosigner Signature: Date (if applicable) CC: ~ [facility] Work Phone: 1(542) 243-663205-20-2025 Evaluation note* Diagnosis Onset Date Resolution Status Admit Date Anxiety acute July 27, 2024 10:11am Bicornuate uterus acute July 10:11am Former smoker, stopped smoki ng in distant past acute July 27, 2024 1 0:11am Hemorrhagic cyst of ovary acute July 27, 2024 10:11am History of marijuana use acute July 27, 2024 10:11am History of nicotine vaping acute July 27, 2024 10:11am History of recurrent miscarriages acute July 27, 2024 1 0:11am Obesity affecting acute July 27, 2024 10:11am PCOS (polycystic ovarian syndrome) acute July 27, 2024 1 0:11am acute July 27, 2024 10:11am at early stage acute July 27, 2024 10:11am Spotting in early acute July 27, 2024 10:11am Supervision of high-risk acute July 27, 2024 1 0:11am Vaginal discharge acute July 10:11am Bkhcf-Cpdbztsjt-Jdcuj syndrome acute July 27, 2024 10:11am Asymptomatic bacteriuria dur ing inactive July 27, 2024 1 0:11am Vaginal bleeding affecting early inactive July 27, 2024 1 0:11am [facility] Work Phone: 1(927) 598-124505-20-2025 [facility] [address] [place] [address], [address] [place] [address] OFFICE VISIT Date of Service: 07/27/24 MR#: [id number] Acct: [id number] Name: JEFF RUSHING Rep #: [id number] : 1995 Provider: Dr. Caitlin Leigh DO Age/Sex: 29/F Location[facility] Status: Signed Intake Vital Signs 10/17/23 10:44 07/16/24 14:24 07/25/24 11:13 07/27/24 10:15 07/27/24 10:15 Height 5 ft 8 in 5 ft 8 in 5 ft 8 in 5 ft 8 in 5 ft 8 in Weight: 234 lb 2 oz BMI 35.6 BP 138/88 H Intake Visit Reasons: NOB: LMP 05/29/24, JYOTHI 03/05/25 Beam Doffer Required: No Is patient in pain?: No Allergies Iodinated Contrast Media Allergy (Mild, Verified 07/27/24 10:13) Hives Medications ?Medication ?Instructions ?Recorded ?Confirmed ?Type progesterone micronized 200 mg 400 mg (2 x 200 mg) vag inal ONCE 07/06/24 07/27/24 Rx capsule (Prometrium) #60 caps aspirin 81 mg tablet,delayed 81 mg PO QDAY 07/16/24 History release (Adult Low Dose Aspirin) multivit-min no.71-iron fum 28 cap PO 07/16/24 5 History mg-folate no.1 1 mg-dha 300 mg capsule (PNV-Arapaho) cephalexin 500 mg capsule 500 mg PO Q12H 5 days #10 ca ps 07/25/24 07/27/24 Rx ondansetron 4 mg disintegrating 4 mg PO Q6H PRN nausea and 07/27/24 07/27/24 Rx tablet vomiting #30 tabs Last Menstrual Period: 05/29/24 Zika: Zika virus screening: Negative : No PFSH PFSH Medical History Recurrent loss Trichomonal vaginitis Seasonal allergies Shingles Cyst of spleen Surgical History Viborg teeth removed Family History Grandmother Throat cancer, Onset Age: 68 Maternal Grandfather Lung cancer Maternal, smoker-onset age unknown Father Diabetes Hypertension Myocardial infarction Social History adopted: No household members: significant other housing: house current occupational status: employed 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 Quit Vaping 07/06/24 quit status: quit date established alcohol intake: current alcohol intake frequency: holidays/special occasions only details: socially - but not while substance use type: does not use, former substance user Date of last use: 4 years ago and marijuana well-balanced diet: daily or most days caffeine: Yes Type: carbonated beverages Number of servings: 1 eating out: rarely or never during the past year weight has: increased > 10 lbs what type of physical activity do you participate in: none whitney/mormon: Christianity seatbelt use: always do you feel safe at home: Yes additional social history: Significant other - Franck History 3 Elective abortions Hx Para 0 Spontaneous abortions 2 Hx # Term Pregnancies Ectopic pregnancies Hx # Pregnancies Multiple births # of living children 0 Past Pregnancies Del. Date Name GA/Weeks Outcome Route Bth Weight Infant Gen Labor Lgth Anesthesia Del [facility] Provider FOB 06/10/20 chemical 4 spontaneous 07/16/212021 5 spontaneous HPI NOB: LMP 05/29/24, JYOTHI 03/05/25 Details: JEFF RUSHING is a 29 year old who presents for New OB visit. OB Visit JYOTHI Calculator Estimated Delivery Date Method Current WG Current Estimate 03/13/25 Ultrasound #1 7w 2d Other Estimates 03/05/25 LMP (Certain) 8w 3d 03/17/25 Ultrasound #2 6w 5d Estimated Due Date: 03/05/25 Expected Delivery Route/Plan Labor Preferences- CB/BF classes: [] labor support person: [] labor intervention preferences: [] pain management options preferred: [] cut cord/dad catch: [] : [] PP control planned: [] discussed possible routes of delivery and associated risks: [] special requests: [] Specific Issue/Plans Covid status: [] Flu vaccine: [] Tdap vaccine: [] Rhogam: [] LARC form signed: [] Problem list reviewed and updated with the most current plan of care details and appropriate ordersplaced. Relevant counseling for the gestational age provided. Continue routine care and follow up unless otherwise noted in visit notes/problem list details Initial Weight: Not Recorded Date -?-?-?-?-?-?-?-?-?-?-?-?- EGA Weight BP Urine Prot -?-?-?-?-?-?-?-?-?-?-?-?- Glucose FHR FuHt Pres Dilation -?-?-?-?-?-?-?-?-?-?-?-?- Effaced St Visit Note 07/27/24 -?-?-?-?-?-?-?-?-?-?-?-?- 7w 2d 234 lb 2 oz 138/88 -?-?-?-?-?-?-?-?-?-?-?-?- 124 -?-?-?-?-?-?-?-?-?-?-?-?- JV- CRL measurin g 6 weeks 5 days with heart tones. last ultrasound was on07/25 in ER and was measuring 7 weeks 0 days. JYOTHI based on that us. still having bleeding. there is a 0.77cm MIGUEL. RTO in one week for repeat ultrasound. stop baby asa, continue progesterone. Menstrual History Last Menstrual Period: 05/29/24 Reported LMP: definite Normal amount/duration: Yes Frequency in days: 29-35 average On hormonal BC at conception: No hCG+: 07/06/24 Antepartum Record Genetic Screening: Congenital Heart Defect: Patient (Ricky Parkinsons Syndrome), Neural Tube Defect: Other, Hemoglobinopathy Or Carrier: Other, Cystic Fibrosis: Other, Chromosome Abnormality: Other, Naveen-Sachs: Other, Hemophilia: Other, Intellectual Disability/Autism: Other, Recurrent Loss/Stillbirth: Other, Other Structural Defect: Other, Other Genetic Disease: Other and Maternal Metabolic Disorder: Other Infection History: Live with someone with TB or Exposed to TB: No, Patient or Partner has history of Genital Herpes: No, Rash or Viral illness since last mentrual period: No, Prior GBS-Infected child: No, History of STD: Yes (Trich in past treated), HIV Infection: No, History of Hepatitis: No, Recent travel outside of [place]: No, Concern for hepatitis exposure: No, Varicella immune: Yes (immune -vaccinated, has had shingles 3-4yrsago) and Covid Vaccinated: No Medical History Medical History: Positive: Psychiatric (anxiety), Seasonal allergies (mild), Operations/hospitalizations (wisdom teeth), Uterine anomaly/marcela (bicornuate uterus-partial), Infertility (was letrazole 4 rounds) and Other (PCOS, obesity) and Negative: Diabetes, Hypertension, Heart disease, Auto-immune disorder, Kidney disease/UTI, Neurologic/epilepsy, Depression/ depression, Hepatitis/liver disease, Varicosities/phlebitis, Thyroid dysfunction, Trauma/domestic violence, History of blood transfusions, D (Rh) Sensitized, Pulmonary (e.g.,TB,Asthma), Drug/latex allergies/reactions, Breast, Computer Training Specialist surgery, Anesthetic complications, History of abnormal pap, Anti-retroviral treatment and Relevantfamily history (Nothing to add. See PFSH) ACOG First Trimester First Trimester: Desire for , Alcohol, Tobacco Cessation, Illicit/Recreational Drug/Substance Use, Intimate Partner Violence, Barriers to care, Unstable Housing, Communication Barriers, Environmental/Work Hazards, Anticipated Course of Care, Toxoplasmosis Precations, Use of Any med ications, Sexual activity, Exercise, Dental Care, Sauna/Hot tub use, Seat Belt use, Childbirth classes/Hospital facilities, Travel, Indications for Ultrasound and Screening for Aneuploidy; Discussed ROS Const Reports system reviewed and no additional complaints, except as documented, Reports fatigue and Denies fever(s) Eyes Reports system reviewed and no additional complaints, except as documented ENT Reports system reviewed and no additional complaints, except as documented Card Denies chest pain and Denies dyspnea Resp Reports system reviewed and no additional complaints, except as documented, Denies cough and Deniesdyspnea GI Denies abdominal pain and Reports nausea Reports system reviewed and no additional complaints, except as documented Musc Reports system reviewed and no additional complaints, except as documented Skin/Breast Reports system reviewed and no additional complaints, except as documented Neuro Yes system reviewed and no additional complaints, except as documented Psych Reports system reviewed and no additional complaints, except as documented Endo Reports system reviewed and no additional complaints, except as documented and Reports fatigue Exam Const General: healthy appearing, comfortable and no acute distress Orientation: alert [facility] Head: normal to inspection, normocephalic and atraumatic Ears: hearing grossly normal bilaterally and external ears normal Nose: external nose normal and nares normal Mouth: oral mucosae normal Teeth and gingiva: dentition normal Eyes General: appearance normal, both eyes and all related structures Neck Neck: normal visual inspection, no lymphadenopathy and supple Thyroid: thyroid normal Chest Chest palpation & inspection: normal inspection of the chest Breast inspection: normal inspection of the breasts and normal inspection of the axillae Breast palpation: normal palpation of the breasts and normal palpation of the axillae Resp Effort & Inspection: normal respiratory effort GI Inspection: normal to inspection Palpation: soft and no hepatosplenomegaly General: bladder normal to palpation External Female Exam: normal external appearance and normal appearance of the urethra Urethra: normal appearance of the urethra Speculum Exam - Vagina: normal appearance of the vagina and normal vaginal discharge Speculum Exam - Cervix: normal appearance of the cervix Bimanual Exam- Vagina & Uterus: normal bimanual exam, bladder normal to palpation, non-tender and other Bimanual Exam- Adnexa, other: non-tender Skin General: no rashes or lesions noted Neuro Motor: muscle tone normal throughout and no movement abnormalities noted Extrem General: normal to inspection and full ROM Supplemental Info ACOG book given and patient encouraged to read about nutrition, exercise, weight gain, and food avoidance in . 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 (3) Spotting in early : Status: Acute Comment: HCGx2, formal US (4) Obesity affecting : Status: Acute Comment: HGBA1c (5) History of recurrent miscarriages: Status: Acute Comment: 2020 chemical, week miscarriage, APL neg in 2023 (6) Supervision of high-risk : Status: Acute Comment: , JYOTHI 03/05/25, LOIS Juárez (7) : Status: Acute Comment: discussed NIPT & Carrier testing-undecided (8) History of marijuana use: Status: Acute Comment: last used 4 yrs ago, discussed tox screen initial & random (9) History of nicotine vaping: Status: Acute Comment: Quit 07/06/24 (10) Former smoker, stopped smoking in distant past: Status: Acute Comment: Quit 2021 (11) Anxiety: Status: Acute (12) Uwjri-Brnpoplql-Mzyif syndrome: Status: Acute (13) at early stage: Status: Acute (14) Bicornuate uterus: Status: Acute (15) Hemorrhagic cyst of ovary: Status: Acute (16) Vaginal discharge: Status: Acute (17) PCOS (polycystic ovarian syndrome): Status: Acute Comment: per OAR Letrozole 2.5mg 12/07 Medications: New ondansetron 4 mg PO Q6H PRN 30 tabs 0RF nausea and vomiting 07/27/24 1100 e Jourdan DO> Date _ Diana Leigh DO [facility] Signature: Date (if applicable) CC: ~ [facility]05-19-2025 Hospital Discharge instructions Additional Instructions Follow-up with your BILL CHECKER in the outpatient setting call them on Friday for a follow-up appointment and see if they want you to be seen tomorrow versus at your scheduled appointment on Friday. You are placed on pelvic rest no sex and do not insert anything in your vagina. Follow-up on urine culture with your BILL CHECKER and take antibiotics as prescribed. [facility] with any [facility] Work Phone: [phone] Discharge summary [facility] Medical Records Department [address] [place] [address] Emergency Department Summary 07/25/24 MR#: [id number] Acct: [id number] Name: JEFF RUSHING Rep #:[id number] : 1995 29 From: Margarito Huston DO PCP: Care Physician,No Primary Status :REG ER Location: ED HPI HPI - Female History of Present Illness Chief Complaint: Vag Bld, Preg Narrative Narrative: 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 Patient states that she isabout 6 weeks and notes that aroundMother's Day she started having some spotting with brown discharge states that she followed up withher OB at that point time and noted that they did an ultrasound that showed a intrauterinegestational sac. She states that she is on progesterone suppositories as she has a history of low progesterone and also was recently treated with Keflex for urinary tract infection. Patient states that last night she had some cramping and had some heavier bleeding therefore she called her BILL CHECKER and they advised her to come here for further evaluation management. Patient states that she is not have any pain right now. [facility] Medical History Recurrent loss Trichomonal vaginitis Seasonal allergies Shingles Cyst of spleen Home Medications ?Medication ?Instructions ?Recorded ?Last Taken ?Type progesterone micronized 200 mg 400 mg (2 x 200 mg) vag inal ONCE 07/06/24 Unknown Rx capsule (Prometrium) #60 caps aspirin 81 mg tablet,delayed 81 mg PO QDAY 07/16/24 Un known History release (Adult Low Dose Aspirin) multivit-min no.71-iron fum 28 cap PO 07/16/24 Unknown History mg-folate no.1 1 mg-dha 300 mg capsule (PNV-Arapaho) cephalexin 500 mg capsule 500 mg PO Q12H 5 days #10 ca ps 07/25/24 Unknown Rx Allergy/AdvReac Type Severity Reaction Status Date / Time Iodinated Contrast Media Allergy Mild Hives Verified 07/25/24 11:13 Family History Grandmother Throat cancer, Onset Age: 68 Maternal Grandfather Lung cancer Maternal, smoker-onset age unknown Father Diabetes Hypertension Myocardial infarction Surgical History Viborg teeth removed Social History adopted: No household members: significant other housing: house current occupational status: employed 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 Quit Vaping 07/06/24 quit status: quit date established alcohol intake: current alcohol intake frequency: holidays/special occasions only details: socially - but not while substance use type: does not use, former substance user Date of last use: 4 years ago and marijuana well-balanced diet: daily or most days caffeine: Yes Type: carbonated beverages Number of servings: 1 eating out: rarely or never during the past year weight has: increased > 10 lbs what type of physical activity do you participate in: none whitney/mormon: Christianity seatbelt use: always do you feel safe at home: Yes additional social history: Significant other - Franck GROSS ROS ED ROS Narrative Constitutional: Denies fevers, chills, headaches malaise, dizziness Abdomen: Denies abdominal pain nausea vomit diarrhea : Complains of vaginal spotting as noted above denies painful urination, hematuria, polyuria Neurological: Denies numbness, weakness, tingling Musculoskeletal: Denies back pain Skin: Denies rashes or lesions EXAM Physical Exam Narrative Exam Narrative: General: Patient was lying bed rest comfortably did not appear to be acute distress Head: Atraumatic, normocephalic Eyes: PERRL bilaterally, EOMI bilateral, no conjunctival injection noted Neck: Soft, supple, trachea midline Abdomen: Soft, nondistended, nontender to palpation Extremities: +5/5 strength in the bilateral upper and lower extremities Neurological: Patient follow commands knew that [facility] year[facility] 2024 Skin: Warm, dry, intact no rashes lesions noted Const Vital Signs: 07/25/24 11:13 Temperature 97.3 F L Temperature Source Temporal Pulse Rate 89 Respiratory Rate 16 Blood Pressure 134/101 H Blood Pressure Mean 112 Pulse Ox 99 Oxygen Delivery Method Room Air MDM MDM MDM Narrative Medical decision making narrative: Patient is a 29-year-old female who presented to the emergency department chief complaint of vaginal spotting in the current setting of at 6 weeks. On the differential diagnosis includes but limited to threatened miscarriage, missed miscarriage, UTI. Once workup is obtained reviewed she will be reevaluated. Patient states that her hCG when it was checked on Friday was 15,034. Patient CBC reviewed and was largely unremarkable white blood count normal at 6.7, hemoglobin 14.9,platelet count of 203. Patient sodium is 136, potassium normal at 3.6, creatinine was 0.41. Patient's AST and ALT were 1722 respectively. Patient lipase normal at 17, hCG increased to 28,328. Patient urinalysis showed negative nitrates 25 leukocyte esterase 0-5 white cells with 2+ bacteria. She states that she completed the antibiotic on Friday she will beplaced back on Keflex this was sent for culture. Patient's ultrasound was reviewed which showed a single live intrauterine with heartbeat of 120 bpm. I called and discussed the case with on-call BILL CHECKER Dr. Vu who states the patient to follow-up early this coming week with them in the office. Discussed this plan with the patient and significant other bedside they are agreeable with this plan. She will be placed on pelvic rest and was advised to refrain from intercourse or anything in the vagina. She was encouraged to take antibiotics as prescribed and follow-up on urine culture as well.She is encouraged to return with worsening symptoms or concerns. They are agreeable toplan all question concerns answered she is discharged home in stable condition. Lab Data Labs: Laboratory Results - last 24 hr 07/25/24 07/25/24 11:28 11:29 WBC 6.7 RBC 5.09 Hgb 14.9 Hct 42.8 MCV 84.1 MCH 29.3 MCHC 34.8 RDW Std Deviation 36.9 RDW Coeff of Enma 12.2 Plt Count 203 MPV 11.9 Immature Gran % (Auto) 0.300 Neut % (Auto) 58.7 Lymph % (Auto) 35.0 Gilliam % (Auto) 5.1 Eos % (Auto) 0.6 Baso % (Auto) 0.3 Absolute Neuts (auto) 3.9 Absolute Lymphs (auto) 2.34 Nucleated RBC % 0 Sodium 136 Potassium 3.6 Chloride 104 Carbon Dioxide 20.4 L Anion Gap 12 BUN 5 Creatinine 0.41 L Estim Creat Clear Calc 260.82 H Est GFR (MDRD) Non-Af 138 BUN/Creatinine Ratio 12.3 Glucose 87 Calcium 9.3 Total Bilirubin 0.52 AST 17 ALT 22 Alkaline Phosphatase 73 Total Protein 7.2 Albumin 4.4 Globulin 2.8 Albumin/Globulin Ratio 1.5 Lipase 17 HCG, Quant 87557 H Serum , Qual POSITIVE Urine Color Yellow Urine Clarity Sl. Cloudy Urine pH 6.5 Ur Specific Hurley 1.015 Urine Protein 30 H Urine Glucose (UA) Normal Urine Ketones Negative Urine Occult Blood 150 H Urine Nitrite Negative Urine Bilirubin Negative Urine Urobilinogen Normal Ur Leukocyte Esterase 25 H Urine RBC 0-5 SEEN Urine WBC 0-5 SEEN Ur Squamous Epith Cells 0-5 SEEN Urine Bacteria 2+ Urine Mucus 1+ Blood Type O POSITIVE Radiography Diagnostic Testing: Clinical Impression(s) from Imaging Studies Obstetrics Ultrasound 07/25/24 11:23 IMPRESSION: Single live intrauterine . Reading Location: [facility] Discharge Plan Triage Chief Complaint: Vag Bld, Preg ED Provider: Margarito Huston Dx/Rx/DC Orders Clinical Impression: Vaginal bleeding affecting early , Asymptomatic bacteriuria during Prescriptions: New cephalexin 500 mg capsule 500 mg PO Q12H 5 Days Qty: 10 0RF No Action PNV-Arapaho 28-1-300 mg capsule PO aspirin [Adult Low Dose Aspirin] 81 mg tablet,delayed release (DR/EC) 81 mg PO QDAY progesterone micronized [Prometrium] 200 mg capsule 400 mg vaginal ONCE Qty: 60 4RF Rx Instructions: Vaginal nightly until 16 weeks Primary Care Provider: Care Physician,No Primary Referrals: Care Physician,No Primary [Primary Care Provider] - Activity Restrictions/Additional Instructions: Follow-up with your BILL CHECKER in the outpatient setting call them on Friday for a follow-up appointment and see if they want you to be seen tomorrow versus at your scheduled appointment on Friday. You are placed on pelvic rest no sex anddo not insert anything in your vagina. Follow-up on urine culture with your BILL CHECKER and take antibiotics as prescribed. Return with any other concerns Print Language: Mosotho Disposition Disposition: Home, Self Care What to do if you have Problems For any increased pain, shortness of breath, bleeding, nausea or vomiting, chestpain, or any unexpected problems, contact your Primary Care Provider. Call [facility] ([phone]) or report tothe closest Emergency Room. Call 911 if necessary. 07/25/24 1321 Cosigner Signature (if applicable): CC: No Primary Care Physician ~ Signed [facility]05-18-2025 Radiology Diagnostic study note [facility] Imaging Services [address] [place] [address] Transvaginal w/Preg US MR#: [id number] Acct: [id number] Name: JEFF RUSHING Rep #: [id number] : 1995 F 29 From: Argenis Huynh MD PCP: Care Physician,No Primary Status: REG ER Study:Transvaginal w/Preg US Date of Exam: 07/25/24 Exam# [id number] Ordering Dr: Melchor Huston DO EXAM: US , Transvaginal CLINICAL INDICATION: VAG BLEEDING TECHNIQUE: Real-time transvaginal obstetrical ultrasound of the maternal pelvisand a first trimester with image documentation. Transvaginal imaging was used for better evaluation of the fetusand adnexa. COMPARISON: No relevant prior studies available. FINDINGS: GESTATION: Gestational sac 2.1 cm. Yolk sac 0.3 cm. CRL 0.5 cm. heart tone 120 beats per minute. Gestational age 7 weeks and 0 day gestation. JYOTHI: JYOTHI 03/15/2025. PLACENTA/AMNIOTIC FLUID: Cannot be adequately evaluated due to the early gestational age. UTERUS/CERVIX: Possible cervical cardiac hemorrhage. No myometrial mass. The uterus measures 8.3 x 6.2 x 4.4 cm. OVARIES: 2.0 ovarian cysts on the right. No mass. The right ovary measures 3.9 x 3.5 x 2.8 cm. The left ovary measures 4.1 x 2.9 x 2.4 cm. FREE FLUID: No free fluid. US/Transvaginal w/Preg US IMPRESSION: Single live intrauterine . Reading Location: [facility] CC: Dr. Margarito Huston, DO; No Primary Care Physician ~ Block Handler: Signed [facility]05-12-2025 Radiology Diagnostic study note [facility] Imaging Services [address] [facility] [address], [place] [id number] Transvaginal w/Preg US MR#: [id number] Acct: [id number] Name: JEFF RUSHING Rep #: [id number] : 1995 F 29 From: Randy Gibson MD PCP: Care Physician,No Primary Status: REG CLI Study:Transvaginal w/Preg US Date of Exam: 07/19/24 Exam# [id number] Ordering Dr: Aaliyah Borrego CNM PROCEDURE: TRANSVAGINAL W/PREG US 07/19/2024 REASON FOR EXAM: SPOTTING TECHNIQUE: Transvaginal. COMPARISON: None FINDINGS: Comments: LMP: May 29, 2024. Number of Gestational Sacs: 1 Gestational Sac Shape: Normal Number of Fetuses: 1 Heart Rate: Not detected. (Average) Yolk Sac: Present and unremarkable. Placenta: Presently not well-visualized Amniotic Fluid Volume: Subjectively normal for gestational age. Uterine Abnormalities: Maternal uterus is unremarkable. Ovaries / Adnexa: There is a corpus luteum cyst in the right ovary measuring 2.2cm x 2.2 cm x 1.8 cm. DIMENSIONS: Parameter Measurement / EGA Gestational Sac: 1.18 cm/6 weeks and 0 days. Yolk Sac: 1.9 mm/ ESTIMATED GESTATIONAL AGE: By Ultrasound: 6 weeks and 0 days By LMP: 7 weeks and 2 days ESTIMATED DATE OF DELIVERY: By Ultrasound: March 14, 2025 By LMP: March 05, 2025 US/Transvaginal w/Preg US IMPRESSION: Intrauterine gestation with a mean gestational age of 6 weeks. No pole isseen at this time. No detected cardiac activity. Corpus luteum cyst measuring 2.2 cm x 2.2 cm 1.8 cm seen in the right ovary. Reading Location: [id number] CC: SALLIE Borrego; No Primary Care Physician ~ Block Handler: Signed [facility]05-09-2025 Evaluation note* Diagnosis Onset Date Resolution Status Admit Date Anxiety acute July 16, 2024 1:06pm Bicornuate uterus acute July 1:06pm Former smoker, stopped smoki ng in distant past acute July 16, 2024 1: 06pm Hemorrhagic cyst of ovary acute July 16, 2024 1:06pm History of marijuana use acute July 16, 2024 1:06pm History of nicotine vaping acute July 16, 2024 1:06pm History of recurrent miscarriages acute July 16, 2024 1: 06pm Obesity affecting acute July 16, 2024 1:06pm PCOS (polycystic ovarian syndrome) acute July 16, 2024 1: 06pm acute July 16, 2024 1:06pm at early stage acute July 16, 2024 1:06pm Spotting in early acute July 16, 2024 1:06pm Supervision of high-risk acute July 16, 2024 1: 06pm Vaginal discharge acute July 1:06pm Fscpm-Bykalzjgc-Vcgfc syndrome acute July 16, 2024 1:06pm Anxiety acute July 27, 2024 10:11am Bicornuate uterus acute July 10:11am Former smoker, stopped smoki ng in distant past acute July 27, 2024 1 0:11am Hemorrhagic cyst of ovary acute July 27, 2024 10:11am History of marijuana use acute July 27, 2024 10:11am History of nicotine vaping acute July 27, 2024 10:11am History of recurrent miscarriages acute July 27, 2024 1 0:11am Obesity affecting acute July 27, 2024 10:11am PCOS (polycystic ovarian syndrome) acute July 27, 2024 1 0:11am acute July 27, 2024 10:11am at early stage acute July 27, 2024 10:11am Spotting in early acute July 27, 2024 10:11am Supervision of high-risk acute July 27, 2024 1 0:11am Vaginal discharge acute July 10:11am Ugqde-Kcrgimxhk-Bynod syndrome acute July 27, 2024 10:11am Asymptomatic bacteriuria dur ing inactive July 27, 2024 1 0:11am Vaginal bleeding affecting early inactive July 27, 2024 1 0:11am Anxiety acute August 03, 2024 2:51pm Bicornuate uterus acute July 2:51pm Former smoker, stopped smoki ng in distant past acute August 03, 2024 2 :51pm Hemorrhagic cyst of ovary acute August 03, 2024 2:51pm History of marijuana use acute August 03, 2024 2:51pm History of nicotine vaping acute August 03, 2024 2:51pm History of recurrent miscarriages acute August 03, 2024 2 :51pm Obesity affecting acute August 03, 2024 2:51pm PCOS (polycystic ovarian syndrome) acute August 03, 2024 2 :51pm acute August 03, 2024 2:51pm at early stage acute August 03, 2024 2:51pm Spotting in early acute August 03, 2024 2:51pm Supervision of high-risk acute August 03, 2024 2 :51pm Vaginal discharge acute July 2:51pm Dvsei-Uvoksljjq-Beren syndrome acute August 03, 2024 2:51pm [facility] Work Phone: [phone] 198-492705-09-2025 Evaluation note* Diagnosis Onset Date Resolution Status Admit Date Anxiety acute July 16, 2024 1:06pm Bicornuate uterus acute July 1:06pm Former smoker, stopped smoki ng in distant past acute July 16, 2024 1: 06pm Hemorrhagic cyst of ovary acute July 16, 2024 1:06pm History of marijuana use acute July 16, 2024 1:06pm History of nicotine vaping acute July 16, 2024 1:06pm History of recurrent miscarriages acute July 16, 2024 1: 06pm Obesity affecting acute July 16, 2024 1:06pm PCOS (polycystic ovarian syndrome) acute July 16, 2024 1: 06pm acute July 16, 2024 1:06pm at early stage acute July 16, 2024 1:06pm Spotting in early acute July 16, 2024 1:06pm Supervision of high-risk acute July 16, 2024 1: 06pm Vaginal discharge acute July 1:06pm Yuwvr-Cgqsmfaax-Jquvr syndrome acute July 16, 2024 1:06pm Anxiety acute July 27, 2024 10:11am Bicornuate uterus acute July 10:11am Former smoker, stopped smoki ng in distant past acute July 27, 2024 1 0:11am Hemorrhagic cyst of ovary acute July 27, 2024 10:11am History of marijuana use acute July 27, 2024 10:11am History of nicotine vaping acute July 27, 2024 10:11am History of recurrent miscarriages acute July 27, 2024 1 0:11am Obesity affecting acute July 27, 2024 10:11am PCOS (polycystic ovarian syndrome) acute July 27, 2024 1 0:11am acute July 27, 2024 10:11am at early stage acute July 27, 2024 10:11am Spotting in early acute July 27, 2024 10:11am Supervision of high-risk acute July 27, 2024 1 0:11am Vaginal discharge acute July 10:11am Psxng-Ztenxrzjm-Euxxu syndrome acute July 27, 2024 10:11am Asymptomatic bacteriuria dur ing inactive July 27, 2024 1 0:11am Vaginal bleeding affecting early inactive July 27, 2024 1 0:11am Anxiety acute August 03, 2024 2:51pm Bicornuate uterus acute July 2:51pm Former smoker, stopped smoki ng in distant past acute August 03, 2024 2 :51pm Hemorrhagic cyst of ovary acute August 03, 2024 2:51pm History of marijuana use acute August 03, 2024 2:51pm History of nicotine vaping acute August 03, 2024 2:51pm History of recurrent miscarriages acute August 03, 2024 2 :51pm Obesity affecting acute August 03, 2024 2:51pm PCOS (polycystic ovarian syndrome) acute August 03, 2024 2 :51pm acute August 03, 2024 2:51pm at early stage acute August 03, 2024 2:51pm Spotting in early acute August 03, 2024 2:51pm Supervision of high-risk acute August 03, 2024 2 :51pm Vaginal discharge acute July 2:51pm Rwrsj-Weqjaqpwe-Araod syndrome acute August 03, 2024 2:51pm Anxiety acute August 09, 2024 1:57pm Bicornuate uterus acute August 1:57pm Former smoker, stopped smoki ng in distant past acute August 09, 2024 1 :57pm Hemorrhagic cyst of ovary acute August 09, 2024 1:57pm History of marijuana use acute August 09, 2024 1:57pm History of nicotine vaping acute August 09, 2024 1:57pm History of recurrent miscarriages acute August 09, 2024 1 :57pm Obesity affecting acute August 09, 2024 1:57pm PCOS (polycystic ovarian syndrome) acute August 09, 2024 1 :57pm acute August 09, 2024 1:57pm at early stage acute August 09, 2024 1:57pm Spotting in early acute August 09, 2024 1:57pm Supervision of high-risk acute August 09, 2024 1 :57pm Vaginal discharge acute August 1:57pm Snsrr-Atdytifeq-Iarcv syndrome acute August 09, 2024 1:57pm [facility] Work Phone: [phone] 841-122305-09-2025 Evaluation note* Diagnosis Onset Date Resolution Status Admit Date Anxiety acute July 16, 2024 1:06pm Bicornuate uterus acute July 1:06pm Former smoker, stopped smoki ng in distant past acute July 16, 2024 1: 06pm Hemorrhagic cyst of ovary acute July 16, 2024 1:06pm History of marijuana use acute July 16, 2024 1:06pm History of nicotine vaping acute July 16, 2024 1:06pm History of recurrent miscarriages acute July 16, 2024 1: 06pm Obesity affecting acute July 16, 2024 1:06pm PCOS (polycystic ovarian syndrome) acute July 16, 2024 1: 06pm acute July 16, 2024 1:06pm at early stage acute July 16, 2024 1:06pm Spotting in early acute July 16, 2024 1:06pm Supervision of high-risk acute July 16, 2024 1: 06pm Vaginal discharge acute July 1:06pm Xfqgm-Hhhanajkp-Exeuz syndrome acute July 16, 2024 1:06pm Anxiety acute July 27, 2024 10:11am Bicornuate uterus acute July 10:11am Former smoker, stopped smoki ng in distant past acute July 27, 2024 1 0:11am Hemorrhagic cyst of ovary acute July 27, 2024 10:11am History of marijuana use acute July 27, 2024 10:11am History of nicotine vaping acute July 27, 2024 10:11am History of recurrent miscarriages acute July 27, 2024 1 0:11am Obesity affecting acute July 27, 2024 10:11am PCOS (polycystic ovarian syndrome) acute July 27, 2024 1 0:11am acute July 27, 2024 10:11am at early stage acute July 27, 2024 10:11am Spotting in early acute July 27, 2024 10:11am Supervision of high-risk acute July 27, 2024 1 0:11am Vaginal discharge acute July 10:11am Xumsj-Wqxhwxadq-Zxojh syndrome acute July 27, 2024 10:11am Asymptomatic bacteriuria dur ing inactive July 27, 2024 1 0:11am Vaginal bleeding affecting early inactive July 27, 2024 1 0:11am Anxiety acute August 03, 2024 2:51pm Bicornuate uterus acute July 2:51pm Former smoker, stopped smoki ng in distant past acute August 03, 2024 2 :51pm Hemorrhagic cyst of ovary acute August 03, 2024 2:51pm History of marijuana use acute August 03, 2024 2:51pm History of nicotine vaping acute August 03, 2024 2:51pm History of recurrent miscarriages acute August 03, 2024 2 :51pm Obesity affecting acute August 03, 2024 2:51pm PCOS (polycystic ovarian syndrome) acute August 03, 2024 2 :51pm acute August 03, 2024 2:51pm at early stage acute August 03, 2024 2:51pm Spotting in early acute August 03, 2024 2:51pm Supervision of high-risk acute August 03, 2024 2 :51pm Vaginal discharge acute July 2:51pm Dwklz-Bahvorxpy-Qcarh syndrome acute August 03, 2024 2:51pm Anxiety acute August 09, 2024 1:57pm Bicornuate uterus acute August 1:57pm Former smoker, stopped smoki ng in distant past acute August 09, 2024 1 :57pm Hemorrhagic cyst of ovary acute August 09, 2024 1:57pm History of marijuana use acute August 09, 2024 1:57pm History of nicotine vaping acute August 09, 2024 1:57pm History of recurrent miscarriages acute August 09, 2024 1 :57pm Obesity affecting acute August 09, 2024 1:57pm PCOS (polycystic ovarian syndrome) acute August 09, 2024 1 :57pm acute August 09, 2024 1:57pm at early stage acute August 09, 2024 1:57pm Spotting in early acute August 09, 2024 1:57pm Supervision of high-risk acute August 09, 2024 1 :57pm Vaginal discharge acute August 1:57pm Pdtew-Gxmhupdvt-Bdxjr syndrome acute August 09, 2024 1:57pm Anxiety acute August 13, 2024 3:43pm Bicornuate uterus acute August 3:43pm Former smoker, stopped smoki ng in distant past acute August 13, 2024 3 :43pm Hemorrhagic cyst of ovary acute August 13, 2024 3:43pm History of marijuana use acute August 13, 2024 3:43pm History of nicotine vaping acute August 13, 2024 3:43pm History of recurrent miscarriages acute August 13, 2024 3 :43pm Obesity affecting acute August 13, 2024 3:43pm PCOS (polycystic ovarian syndrome) acute August 13, 2024 3 :43pm acute August 13, 2024 3:43pm at early stage acute August 13, 2024 3:43pm Spotting in early acute August 13, 2024 3:43pm Supervision of high-risk acute August 13, 2024 3 :43pm Vaginal discharge acute August 3:43pm Jdprs-Owfwpdxtn-Voltg syndrome acute August 13, 2024 3:43pm [facility] Work Phone: [phone] Evaluation note* Diagnosis Onset Date Resolution Status Admit Date Anxiety acute July 16, 2024 1:06pm Bicornuate uterus acute July 1:06pm Former smoker, stopped smoki ng in distant past acute July 16, 2024 1: 06pm Hemorrhagic cyst of ovary acute July 16, 2024 1:06pm History of marijuana use acute July 16, 2024 1:06pm History of nicotine vaping acute July 16, 2024 1:06pm History of recurrent miscarriages acute July 16, 2024 1: 06pm Obesity affecting acute July 16, 2024 1:06pm PCOS (polycystic ovarian syndrome) acute July 16, 2024 1: 06pm acute July 16, 2024 1:06pm at early stage acute July 16, 2024 1:06pm Spotting in early acute July 16, 2024 1:06pm Supervision of high-risk acute July 16, 2024 1: 06pm Vaginal discharge acute July 1:06pm Rihpv-Wwkagtcdl-Wlcfz syndrome acute July 16, 2024 1:06pm Anxiety acute July 27, 2024 10:11am Bicornuate uterus acute July 10:11am Former smoker, stopped smoki ng in distant past acute July 27, 2024 1 0:11am Hemorrhagic cyst of ovary acute July 27, 2024 10:11am History of marijuana use acute July 27, 2024 10:11am History of nicotine vaping acute July 27, 2024 10:11am History of recurrent miscarriages acute July 27, 2024 1 0:11am Obesity affecting acute July 27, 2024 10:11am PCOS (polycystic ovarian syndrome) acute July 27, 2024 1 0:11am acute July 27, 2024 10:11am at early stage acute July 27, 2024 10:11am Spotting in early acute July 27, 2024 10:11am Supervision of high-risk acute July 27, 2024 1 0:11am Vaginal discharge acute July 10:11am Wnqem-Iztptotle-Onejs syndrome acute July 27, 2024 10:11am Asymptomatic bacteriuria dur ing inactive July 27, 2024 1 0:11am Vaginal bleeding affecting early inactive July 27, 2024 1 0:11am Anxiety acute August 03, 2024 2:51pm Bicornuate uterus acute July 2:51pm Former smoker, stopped smoki ng in distant past acute August 03, 2024 2 :51pm Hemorrhagic cyst of ovary acute August 03, 2024 2:51pm History of marijuana use acute August 03, 2024 2:51pm History of nicotine vaping acute August 03, 2024 2:51pm History of recurrent miscarriages acute August 03, 2024 2 :51pm Obesity affecting acute August 03, 2024 2:51pm PCOS (polycystic ovarian syndrome) acute August 03, 2024 2 :51pm acute August 03, 2024 2:51pm at early stage acute August 03, 2024 2:51pm Spotting in early acute August 03, 2024 2:51pm Supervision of high-risk acute August 03, 2024 2 :51pm Vaginal discharge acute July 2:51pm Zltgl-Auxrdlnoj-Ozwmm syndrome acute August 03, 2024 2:51pm Anxiety acute August 09, 2024 1:57pm Bicornuate uterus acute August 1:57pm Former smoker, stopped smoki ng in distant past acute August 09, 2024 1 :57pm Hemorrhagic cyst of ovary acute August 09, 2024 1:57pm History of marijuana use acute August 09, 2024 1:57pm History of nicotine vaping acute August 09, 2024 1:57pm History of recurrent miscarriages acute August 09, 2024 1 :57pm Obesity affecting acute August 09, 2024 1:57pm PCOS (polycystic ovarian syndrome) acute August 09, 2024 1 :57pm acute August 09, 2024 1:57pm at early stage acute August 09, 2024 1:57pm Spotting in early acute August 09, 2024 1:57pm Supervision of high-risk acute August 09, 2024 1 :57pm Vaginal discharge acute August 1:57pm Fzhuc-Fmqboldxs-Inpwq syndrome acute August 09, 2024 1:57pm Anxiety acute August 13, 2024 3:43pm Bicornuate uterus acute August 3:43pm Former smoker, stopped smoki ng in distant past acute August 13, 2024 3 :43pm Hemorrhagic cyst of ovary acute August 13, 2024 3:43pm History of marijuana use acute August 13, 2024 3:43pm History of nicotine vaping acute August 13, 2024 3:43pm History of recurrent miscarriages acute August 13, 2024 3 :43pm Obesity affecting acute August 13, 2024 3:43pm PCOS (polycystic ovarian syndrome) acute August 13, 2024 3 :43pm acute August 13, 2024 3:43pm at early stage acute August 13, 2024 3:43pm Spotting in early acute August 13, 2024 3:43pm Supervision of high-risk acute August 13, 2024 3 :43pm Vaginal discharge acute August 3:43pm Rgryu-Ipncxvthz-Ckjdb syndrome acute August 13, 2024 3:43pm Anxiety acute August 16, 2024 3:41pm Bicornuate uterus acute August 3:41pm Former smoker, stopped smoki ng in distant past acute August 16, 2024 3 :41pm Hemorrhagic cyst of ovary acute August 16, 2024 3:41pm History of marijuana use acute August 16, 2024 3:41pm History of nicotine vaping acute August 16, 2024 3:41pm History of recurrent miscarriages acute August 16, 2024 3 :41pm Obesity affecting acute August 16, 2024 3:41pm PCOS (polycystic ovarian syndrome) acute August 16, 2024 3 :41pm acute August 16, 2024 3:41pm at early stage acute August 16, 2024 3:41pm Spotting in early acute August 16, 2024 3:41pm Supervision of high-risk acute August 16, 2024 3 :41pm Vaginal discharge acute August 3:41pm Byawk-Mddnltfnk-Bkpqf syndrome acute August 16, 2024 3:41pm [facility] Work Phone: [phone] 168-789405-09-2025 Evaluation note* Diagnosis Onset Date Resolution Status Admit Date Anxiety acute July 16, 2024 1:06pm Bicornuate uterus acute July 1:06pm Former smoker, stopped smoki ng in distant past acute July 16, 2024 1: 06pm Hemorrhagic cyst of ovary acute July 16, 2024 1:06pm History of marijuana use acute July 16, 2024 1:06pm History of nicotine vaping acute July 16, 2024 1:06pm History of recurrent miscarriages acute July 16, 2024 1: 06pm Obesity affecting acute July 16, 2024 1:06pm PCOS (polycystic ovarian syndrome) acute July 16, 2024 1: 06pm acute July 16, 2024 1:06pm at early stage acute July 16, 2024 1:06pm Spotting in early acute July 16, 2024 1:06pm Supervision of high-risk acute July 16, 2024 1: 06pm Vaginal discharge acute July 1:06pm Mnkfq-Iecejxmjs-Ytbtf syndrome acute July 16, 2024 1:06pm Anxiety acute July 27, 2024 10:11am Bicornuate uterus acute July 10:11am Former smoker, stopped smoki ng in distant past acute July 27, 2024 1 0:11am Hemorrhagic cyst of ovary acute July 27, 2024 10:11am History of marijuana use acute July 27, 2024 10:11am History of nicotine vaping acute July 27, 2024 10:11am History of recurrent miscarriages acute July 27, 2024 1 0:11am Obesity affecting acute July 27, 2024 10:11am PCOS (polycystic ovarian syndrome) acute July 27, 2024 1 0:11am acute July 27, 2024 10:11am at early stage acute July 27, 2024 10:11am Spotting in early acute July 27, 2024 10:11am Supervision of high-risk acute July 27, 2024 1 0:11am Vaginal discharge acute July 10:11am Rqwia-Aphjjpmfr-Usymq syndrome acute July 27, 2024 10:11am Asymptomatic bacteriuria dur ing inactive July 27, 2024 1 0:11am Vaginal bleeding affecting early inactive July 27, 2024 1 0:11am Anxiety acute August 03, 2024 2:51pm Bicornuate uterus acute July 2:51pm Former smoker, stopped smoki ng in distant past acute August 03, 2024 2 :51pm Hemorrhagic cyst of ovary acute August 03, 2024 2:51pm History of marijuana use acute August 03, 2024 2:51pm History of nicotine vaping acute August 03, 2024 2:51pm History of recurrent miscarriages acute August 03, 2024 2 :51pm Obesity affecting acute August 03, 2024 2:51pm PCOS (polycystic ovarian syndrome) acute August 03, 2024 2 :51pm acute August 03, 2024 2:51pm at early stage acute August 03, 2024 2:51pm Spotting in early acute August 03, 2024 2:51pm Supervision of high-risk acute August 03, 2024 2 :51pm Vaginal discharge acute July 2:51pm Cfnul-Fcucawrfa-Zqykw syndrome acute August 03, 2024 2:51pm Anxiety acute August 09, 2024 1:57pm Bicornuate uterus acute August 1:57pm Former smoker, stopped smoki ng in distant past acute August 09, 2024 1 :57pm Hemorrhagic cyst of ovary acute August 09, 2024 1:57pm History of marijuana use acute August 09, 2024 1:57pm History of nicotine vaping acute August 09, 2024 1:57pm History of recurrent miscarriages acute August 09, 2024 1 :57pm Obesity affecting acute August 09, 2024 1:57pm PCOS (polycystic ovarian syndrome) acute August 09, 2024 1 :57pm acute August 09, 2024 1:57pm at early stage acute August 09, 2024 1:57pm Spotting in early acute August 09, 2024 1:57pm Supervision of high-risk acute August 09, 2024 1 :57pm Vaginal discharge acute August 1:57pm Htjqo-Zralwcqor-Uqhpx syndrome acute August 09, 2024 1:57pm Anxiety acute August 13, 2024 3:43pm Bicornuate uterus acute August 3:43pm Former smoker, stopped smoki ng in distant past acute August 13, 2024 3 :43pm Hemorrhagic cyst of ovary acute August 13, 2024 3:43pm History of marijuana use acute August 13, 2024 3:43pm History of nicotine vaping acute August 13, 2024 3:43pm History of recurrent miscarriages acute August 13, 2024 3 :43pm Obesity affecting acute August 13, 2024 3:43pm PCOS (polycystic ovarian syndrome) acute August 13, 2024 3 :43pm acute August 13, 2024 3:43pm at early stage acute August 13, 2024 3:43pm Spotting in early acute August 13, 2024 3:43pm Supervision of high-risk acute August 13, 2024 3 :43pm Vaginal discharge acute August 3:43pm Hbjjt-Relbzriwp-Awvsw syndrome acute August 13, 2024 3:43pm Anxiety acute August 16, 2024 3:41pm Bicornuate uterus acute August 3:41pm Former smoker, stopped smoki ng in distant past acute August 16, 2024 3 :41pm Hemorrhagic cyst of ovary acute August 16, 2024 3:41pm History of marijuana use acute August 16, 2024 3:41pm History of nicotine vaping acute August 16, 2024 3:41pm History of recurrent miscarriages acute August 16, 2024 3 :41pm Obesity affecting acute August 16, 2024 3:41pm PCOS (polycystic ovarian syndrome) acute August 16, 2024 3 :41pm acute August 16, 2024 3:41pm at early stage acute August 16, 2024 3:41pm Spotting in early acute August 16, 2024 3:41pm Supervision of high-risk acute August 16, 2024 3 :41pm Vaginal discharge acute August 3:41pm Badjr-Auslrypix-Wfzyf syndrome acute August 16, 2024 3:41pm Anxiety acute August 27 1:59pm Bicornuate uterus acute August 272024 1:59pm Former smoker, stopped smoki ng in distant past acute August 27, 2024 1:59pm Hemorrhagic cyst of ovary acute August 27, 2024 1:59pm History of marijuana use acute August 27, 2024 1:59pm History of nicotine vaping acute August 27, 2024 1:59pm History of recurrent miscarriages acute August 27, 2024 1:59pm Obesity affecting acute August 27, 2024 1:59pm PCOS (polycystic ovarian syndrome) acute August 27, 2024 1:59pm acute August 27 1:59pm at early stage acute August 27, 2024 1:59pm Spotting in early acute August 27, 2024 1:59pm Supervision of high-risk acute August 27, 2024 1:59pm Vaginal discharge acute August 272024 1:59pm Boyza-Bhwqymhdv-Sstch syndrome acute August 27, 2024 1:59pm [facility] Work Phone: [phone] 202-511402-03-2025 History of Present illness Narrative* Domenico Long, [employer] - 04/12/2024 8:20 AM ESTAssociated Order(s): Ear Cerumen Removal Pre-Procedure Diagnose(s): Bilateral impacted cerumen Post-Procedure Diagnose(s): Bilateral impacted cerumen Subjective Patient ID: Jeff Portillo is a 29 y.o. female. They present today with a chief complaint of Illness (2 weeks of yellow mucus, congestion. ). History of Present Illness C/o nasal/sinus, cough and cold s/s x 14 days. Has tried OTC meds with mild relief. Patient denies any CP, SOB, BARRIOS, fever, abdominal pain, and nausea/vomiting otherwise. History provided by: Patient Illness Associated symptoms: cough, ear pain, shortness of breath and sore throat Associated symptoms: no chest pain, no fatigue, no fever, no nausea, no rhinorrhea, no vomiting andno wheezing Past Medical History Allergies as of 04/12/2024 - Reviewed 04/12/2024 Allergen Reaction Noted Gadolinium-containing contrast media Hives 06/22/2020 (Not in a hospital admission) History reviewed. No pertinent past medical history. History reviewed. No pertinent surgical history. reports that she has been smoking cigarettes. She has never used smokeless tobacco. Review of Systems Review of Systems Constitutional: Negative. Negative for chills, fatigue and fever. HENT: Positive for ear discharge, ear pain, postnasal drip and sore throat. Negative for rhinorrhea, sinus pressure and sinus pain. Eyes: Negative. Respiratory: Positive for cough and shortness of breath. Negative for wheezing. Cardiovascular: Negative. Negative for chest pain. Gastrointestinal: Negative. Negative for nausea and vomiting. Musculoskeletal: Negative. Skin: Negative. Neurological: Negative. Psychiatric/Behavioral: Negative. Objective Vitals: 04/12/24 0818 04/12/24 0851 BP: 141/82 Pulse: (!) 115 100 Resp: 19 Temp: 36.9 C (98.4 F) SpO2: 97% Weight: 107 kg (235 lb) No LMP recorded. Physical Exam Vitals and nursing note reviewed. Constitutional: General: She is not in acute distress. Appearance: Normal appearance. She is not ill-appearing or toxic-appearing. HENT: Head: Normocephalic and atraumatic. Right Ear: Ear canal normal. There is impacted cerumen. Left Ear: Ear canal normal. There is impacted cerumen. Nose: Nose normal. No rhinorrhea. Mouth/Throat: Mouth: Mucous membranes are moist. Pharynx: Oropharynx is clear. Posterior oropharyngeal erythema present. Eyes: Extraocular Movements: Extraocular movements intact. Pupils: Pupils are equal, round, and reactive to light. Cardiovascular: Rate and Rhythm: Normal rate and regular rhythm. Pulses: Normal pulses. Heart sounds: Normal heart sounds. Pulmonary: Effort: Pulmonary effort is normal. No respiratory distress. Breath sounds: Normal breath sounds. No wheezing or rhonchi. Abdominal: General: Abdomen is flat. Bowel sounds are normal. Palpations: Abdomen is soft. Skin: General: Skin is warm and dry. Neurological: Mental Status: She is alert and oriented to person, place, and time. Psychiatric: Mood and Affect: Mood normal. Behavior: Behavior normal. Ear Cerumen Removal Date/Time: 04/12/2024 9:00 AM Performed by: BIPIN Estrada Authorized by: BIPIN Estrada Point of Care Test & Imaging Results from this visit Results for orders placed or performed in visit on 04/12/24 POCT Influenza A/B manually resulted Result Value Ref Range POC Rapid Influenza A Negative Negative POC Rapid Influenza B Negative Negative POCT Covid-19 Rapid Antigen Result Value Ref Range POC WILLIAN-COV-2 AG Positive test for SARS-CoV-2 (antigen detected) (A) Presumptive negative test for SARS-CoV-2 (no antigen detected) POCT , urine manually resulted Result Value Ref Range Preg Test, Ur Negative Negative XR chest 2 views Result Date: 04/12/2024 Interpreted By: Altaf Grullno, STUDY: XR CHEST 2 VIEWS; 04/12/2024 9:06 am INDICATION: Signs/Symptoms:cough. COMPARISON: None. ACCESSION NUMBER(S): [id number] ORDERING CLINICIAN: DOMENICO LONG FINDINGS: The lungs are clear without pleural effusion. Normal heart size, mediastinum, ya, and pulmonary vasculature. No active disease in the chest identified. MACRO: None Signed by: Altaf Grullon 04/12/2024 9:10 AM Dictation workstation: [id number] Diagnostic study results (if any) were reviewed by BIPIN Estrada. Assessment/Plan Allergies, medications, history, and pertinent labs/EKGs/Imaging reviewed by BIPIN Estrada. Medical Decision Making CXR neg. See results. Neg preg test. Positive COVID 19. See results. Bilat impacted cerumen. R/L ear lavage. Well tolerated. On exam, bilat otitis media. Will send augmentin. Sending cetrizine and Flonase for PND. Sending benzonatate for cough. Albuterol PRN for any SOB. See orders. Discussed pushing fluids, rest, OTC symptoms management PRN. Work note provided. Patient will stay off work/school until fever free for at least 24 hours without an antipyretics, per CDC guidelines. Pt advised to rest, stay hydrated, monitor temperature. Pt will notify PCP if temp 104 or persists for 3 weeks. Patient verbalized understanding and agreed with the plan of care. At time of discharge, patient was clinically well-appearing and appropriate for outpatient management. The patient/parent/guardian was educated regarding diagnosis, supportive care, OTC and Rx medications. The patient/parent/guardian was given the opportunity to ask questions prior to discharge. They verbalized understanding of discussion of treatment plan, expected course of illness and/or injury, indications on when to return to , when to seek further evaluation in ED/call 911, and the needto follow up with PCP and/or specialist as referred. Patient/parent/guardian was provided with work/school documentation if requested. Patient stable upon discharge. Orders and Diagnoses Diagnoses and all orders for this visit: COVID-19 Acute cough - XR chest 2 views; Future - benzonatate (Tessalon) 200 mg capsule; Take 1 capsule (200 mg) by mouth 3 times a day as needed for cough for up to 10 days. Do not crush or chew. SOB (shortness of breath) - albuterol 90 mcg/actuation inhaler; Inhale 2 puffs every 6 hours if needed for wheezing. Fatigue, unspecified type Bilateral impacted cerumen - Ear Cerumen Removal At increased risk of exposure to COVID-19 virus - POCT Influenza A/B manually resulted - POCT Covid-19 Rapid Antigen Possible - POCT , urine manually resulted PND (post-nasal drip) - cetirizine (ZyrTEC) 10 mg tablet; Take 1 tablet (10 mg) by mouth once daily. - fluticasone (Flonase) 50 mcg/actuation nasal spray; Administer 1 spray into each nostril once daily. Shake gently. Before first use, prime pump. After use, clean tip and replace cap. Non-recurrent acute suppurative otitis media of both ears without spontaneous rupture of tympanic membranes - amoxicillin-pot clavulanate (Augmentin) 875-125 mg tablet; Take 1 tablet (875 mg) by mouth 2 times a day for 7 days. Medical Admin Record Patient disposition: Home documented in this [facility] Work Phone: [phone]) 710-871312-27-2023 NoteORIGINAL PROCEDURE: Ultrasound and fluoroscopic guided percutaneous drainage [...] and percutaneous drainage catheter. Interpreted by: Marco Bloom MD Preliminary Report By: Marco Bloom MD Electronically signed By Marco Bloom MD Dictated Date: 03/05/2023 2:32:06 PM Prelim Date: 03/05/2023 2:56:21 PM Sign Date: 03/05/2023 2:56:21 PM Ordering Provider: [facility] [place]02-[place]-2023 Hospital Discharge instructions Patient Education 02/21/2023 13:13:02 Radiology- CT Aspiration or Drainage 06/23/2019 (CUSTOM) [place] [facility] Aspiration or Drainage Discharge Instructions Interventional Radiology [facility] [address] [place] [address] Today, you had a drainage or aspiration of a cyst with Sclerotherapy. This procedure was done to help your doctor treat the signs and symptoms you have been experiencing. These instructions should befollowed after your procedure to reduce the chance of experiencing complications. Diet: Resume your normal diet as tolerated. Activity: Rest for the remainder of the day. You may resume your normal activity tomorrow. You may bathe/shower after 24 hours, unless you have a drainage catheter. Do not soak or submerge site (including swimming or hot tubs) until a scab forms. No heavy lifting, pushing, or straining. Dressing: Check the site for bleeding. Apply pressure to the site if bleeding excessively and call your physician. Change the band aid as needed; it can be removed after 24 hours. Keep the site dry at all times until a scab forms over the site. Pain Control: The puncture site may be sore for 1 to 2 days following the procedure. Oeka-zlt-smiqwol pain medication should be used for pain or discomfort. Please check with the physician who ordered this procedure for you for their specific recommendations. If your pain is not relieved or becomes more severe, notify the physician who sent you for this procedure. CT Aspiration or Drainage Discharge Instructions If you were sedated for this procedure: Avoid alcoholic beverages for 24 hours after your procedure. Do not drive or operate heavy machinery for 24 hours after your procedure. Do not make any legal decisions for 24 hours after your procedure. Medication: Please resume all medications today per home schedule. When to seek medical help: Lightheadedness, dizziness, or fainting. Infection: fever greater than 101 degrees, chills, redness, warmth, swelling, bleeding, or pus frompuncture site. Increased pain at the puncture site. If you experience any of these issues during the first 24 hours, please follow the instruction below: call [phone] After 24 hours, contact the physician who ordered this procedure for you. Obtaining test results: Please make an appointment with your doctor to obtain your test results. They are usually availablewithin 4 to 7 business days. Do not assume everything is normal if you have not heard from your doctor or medical facility. It is important for you to follow up on all of your test results. Special Instructions: 02/21/2023 13:09:05 Moderate Conscious Sedation, Adult, Care After Moderate Conscious Sedation, Adult, Care After These instructions provide you with information about caring for yourself after your procedure. Your health care provider may also give you more specific instructions. Your treatment has been plannedaccording to current medical practices, but problems sometimes occur. Call your health care provider if you have any problems or questions after your procedure. What can I expect after the procedure? After your procedure, it is common: To feel sleepy for several hours. To feel clumsy and have poor balance for several hours. To have poor judgment for several hours. To vomit if you eat too soon. Follow these instructions at home: For at least 24 hours after the procedure: Do not: ?Participate in activities where you could fall or become injured. ?Drive. ?Use heavy machinery. ?Drink alcohol. ?Take sleeping pills or medicines that cause drowsiness. ?Make important decisions or sign legal documents. ?Take care of children on your own. Rest. Eating and drinking Follow the diet recommended by your health care provider. If you vomit: ?Drink water, juice, or soup when you can drink without vomiting. ?Make sure you have little or no nausea before eating solid foods. General instructions Have a responsible adult stay with you until you are awake and alert. Take rcuw-exj-rormidn and prescription medicines only as told by your health care provider. If you smoke, do not smoke without supervision. Keep all follow-up visits as told by your health care provider. This is important. Contact a health care provider if: You keep feeling nauseous or you keep vomiting. You feel light-headed. You develop a rash. You have a fever. Get help right away if: You have trouble breathing. This information is not intended to replace advice given to you by your health care provider. Make sure you discuss any questions you have with your health care provider. Document Released: 12/15/2013 Document Revised: 02/06/2018 Document Reviewed: 06/15/2016 [employer] Patient Education 2020 [employer]. Follow Up Care 02/20/2023 10:47:45 With:MARCO BLOOM MD, [facility] Address: [address] [place] [address] [place] [address]- [phone] When: Unknown Comments:Follow-up as needed With:MARCO MOJICA MD Address: [address] [place] [phone] When: Unknown With:Go to emergency room if symptoms worsen Address:Unknown When: Unknown [facility] 12-15-2023 Evaluation + Plan noteExtracted from: Title:IR pre procedure H&P Author:NOLVIA RICH PA-C Date:02/21/23 IR PREPROCEDURE H&P UPDATE IF A HISTORY AND PHYSICAL EXAMINATION HAS BEEN COMPLETED PRIOR TO ADMISSION TO THE HOSPITAL, AN UPDATED EXAMINATION MUST BE COMPLETED AND DOCUMENTED WITHIN 24 HOURS AFTER ADMISSION OR REGISTRATION BUT BEFORE A SURGICAL PROCEDURE. I have examined the patient, reviewed the H&P, and there are no changes unless noted below: Patient is allergic to contrast. Not pre medicated. The most recent H&P/Office Note has been performed on 02/20/2023 and can be found on paper, which has been scanned into the [facility] PACS/RIS system. _ Future Scheduled Tests Laboratory* [facility] Lab Send out (Blood Specimens) 02/19/23 [facility] 12-15-2023 Note* NICHELLE Dewitt: SIGN, AUTHOR, PERFORM Event Display: IR Procedure Record Authored Date: [id number] IR Procedure Record Summary Primary Physician: MARCO BLOOM MD Finalized Date/Time: 02/21/23 11:42:44 Pt. Name: JEFF RUSHING/Sex: 1995 Female Med Rec #: [id number] Physician: Financial #: [id number] Pt. Type: O Room/Bed: / Admit/Disch: 02/21/23 08:50:00 - Institution: Allergies identified in patient's electronic medical record at time of printing on 02/21/23 Entry 1 Substance Contrast dye Reaction Type Allergy Last Modified By: NICHELLE Grant 02/19/23 08:06:55 Case Attendance- IR Entry 1 Entry 2 Entry 3 Case Attendee MARCO BLOOM MD, Kendy Ayala Amanda K Tech Role Performed Primary Surgeon Scrub Technologist Circulating Technologist Details Time In 02/21/23 11:11:00 02/21/23 11:11:00 02/21/23 11:11:00 Time Out 02/21/23 11:46:00 02/21/23 11:46:00 02/21/23 11:46:00 Procedure/Preference IR Sclerotherapy SN IR Sclerotherapy SN IR Sclerotherapy SN Card Last Modified By: NICHELLE Dewitt RN Corey Snider, RN Corey 02/21/23 11:39:13 02/21/23 11:39:13 02/21/23 11:39:13 Entry 4 Case Attendee NICHELLE Dewitt Role Performed Procedure Nurse Details Time In 02/21/23 11:11:00 Time Out 02/21/23 11:46:00 Procedure/Preference IR Sclerotherapy SN Card Last Modified By: NICHELLE Dewitt 02/21/23 11:39:13 Radiology Procedures- IR Entry 1 Procedure/Preference IR Sclerotherapy SN Actual Procedure IR SCLEROTHERAPY SN Card Primary Procedure Yes Primary Surgeon MARCO BLOOM MD Anesthesia/Sedation Local, IV Sedation Type Additional Procedure Times Start 02/21/23 11:17:00 Stop 02/21/23 11:39:00 Specialty Service SN Radiology Procedure EBL 1 mL Last Modified By: NICHELLE Dewitt 02/21/23 11:39:16 Radiology Procedure Details - IR Entry 1 Radiology Sedation Case Times Sedation Start Time 02/21/23 11:17:00 Sedation Stop Time 02/21/23 11:39:00 Sedation Total Time 22min Radiology - Fluid/Drainage Fluid Amount mL: 58 Fluid Description sanguinous Radiology Contrast Contrast Used? Yes Dose 25 mL Medication OMNIPAQUE 300 50ML 10/PK Y-530 [facility] [id number] Radiology Flouroscopy Fluoroscopy Used? Yes Fluoro Dose (mGy) 46 Fluoro Time 0.9min Radiology Local Local Used? Yes Local Type: lidocaine 2% Local Dose 8ml Radiology Procedure Site Site/Location abdomen Site Condition No complications Dressing Type Gauze sponge 4 X 4, Technologist Notes 40ml etoh injected by Transparent dr bloom Last Modified By: NICHELLE Dewitt 02/21/23 11:42:27 General Case Data - IR Entry 1 Case Information Room IR 18 Case Level IR Level 2 Wound Class None Specialty SN Radiology Procedure ASA Class None Diagnosis Preop Diagnosis splenic cyst Postop Same As Preop Yes Postop Diagnosis splenic cyst Last Modified By: NICHELLE Dewitt 02/21/23 11:30:14 Medication Administration- IR Entry 1 Entry 2 Entry 3 Medication versed fentanyl versed Time Administered 02/21/23 11:21:00 02/21/23 11:21:00 02/21/23 11:29:00 Route of Admin IV Push IV Push IV Push Dose 1mg 50mcg 1mg Volume VORB * *Verbal Order Read Back (VORB) is required for NON- PHYSICIAN administration of medications. Administered by No No No Physician? Administered by: NICHELLE Dewitt RN Corey Snider, RN Corey Verbal Order Read MARCO BLOOM MD, JAMES MD BUCHINO, JAMES MD Back from: Last Modified By: NICHELLE Dewitt RN Corey Snider, RN Corey 02/21/23 11:27:50 02/21/23 11:27:50 02/21/23 11:33:39 Entry 4 Medication fentanyl Time Administered 02/21/23 11:29:00 Route of Admin IV Push Dose 50mcg Volume VORB * *Verbal Order Read Back (VORB) is required for NON- PHYSICIAN administration of medications. Administered by No Physician? Administered by: NICHELLE Dewitt Verbal Order Read MARCO BLOOM MD Back from: Last Modified By: NICHELLE Dewitt 02/21/23 11:33:39 Procedure Case Times- IR Entry 1 Patient In Procedure Patient In OR 02/21/23 11:11:00 Patient Out of OR 02/21/23 11:46:00 Procedure Start/Stop Procedure Start Time 02/21/23 11:17:00 Procedure Stop Time 02/21/23 11:39:00 Last Modified By: NICHELLE Dewitt 02/21/23 11:39:12 Immediate Post Procedure Note - IR Entry 1 Immediate Post Yes Procedure Note displayed for Physician to review Closure Technique Closure Technique Other than Primary Last Modified By: NICHELLE Dewitt 02/21/23 11:29:47 Immediate Post Procedure Note - IR Signed By: MARCO BLOOM MD 02/21/23 11:40 Allergy Information- IR Entry 1 Allergies Reviewed? Yes Allergies Reviewed Medical Record With Last Modified By: NICHELLE Dewitt 02/21/23 11:24:22 Radiology Protocols/Time Out- IR Entry 1 Preprocedure Clinician Verifies Correct patient ID When Clinically Confirmation of correct using name & date Indicated side(s) and site(s), or MRN, Accurate Correct diagnostic and procedure, complete radiology tests Informed Consent, H & P available, Required update immediately blood products, prior to procedure, if implants, devices applicable and/or special equipment available OR/Procedure Room/Bedside Time 02/21/23 11:17:00 Clinician Verifies Correct patient identity including EMR & records using name and date or medical record number, Accurate procedure consent form, Correct patient position, Necessary equipment is available, Anticipated non-routine events with surgical team (case duration, estimated blood loss, patient specific concerns)., Santiago patient factors for recovery and management identified with surgical team. When Applicable Confirmation correct Team Members MARCO BLOOM MD, side and site marked, Present for Time Out Mono Line Maintenance Relevant images and Kenyetta Louise, results are properly Kendy R Line Maintenance, labeled and NICHELLE Dewitt appropriately displayed, Alcohol based prep dry, Double verification of sterility indicators complete Instrument Sterility Team Members MARCO BLOOM MD, Verifying Sterility SharonArgoPay Line Maintenance Radha K Procedure IR Sclerotherapy SN Last Modified By: NICHELLE Dewitt 02/21/23 11:26:52 Skin Prep- IR Entry 1 Procedure IR Sclerotherapy SN Skin Prep Prep Area Abdomen Side Left By Mono Line Maintenance Prep Agents Chloraprep Radha K Hair Removal Method N/A Last Modified By: NICHELLE Dewitt 02/21/23 11:29:22 Patient Positioning- IR Entry 1 Procedure IR Sclerotherapy SN Body Position OP Supine Feet Uncrossed? Yes Pressure Points Yes Checked Last Modified By: NICHELLE Dewitt 02/21/23 11:29:30 Radiology Procedure Plan - IR Entry 1 Radiology - Nursing Care Plan Outcome Statement The patient Outcome Statement The patient receives demonstrates knowledge Cont. appropriate of the expected medication(s), safely responses to the administered during the operative/invasive perioperative/invasive procedure., The period., The patient is patient's value system, free from signs and lifestyle, ethnicity, symptoms of injury and culture are caused by extraneous considered, respected, objects (equipment, and incorporated in the instrumentation, perioperative plan of sponges, or sharps). care., The patient is free from signs and symptoms of infection., The patient is free from signs and symptoms of injury related to positioning. Radiology - Action Plan Outcomes Met? Yes Mission Analyst NICHELLE Dewitt Completing Procedure Plan Last Modified By: NICHELLE Dewitt 02/21/23 11:30:03 Case Comments <None> Finalized By: NICHELLE Dewitt Document Signatures Signed By: NICHELLE Dewitt 02/21/23 11:42 [facility] 12-15-2023 Summary of episode note Discharge Instructions Thank you for allowing [facility] to assist you with your healthcare needs. The following is importantdischarge information regarding your hospital visit. Your Care Team MARCO MOJICA MD What to do next Follow Up Appointments Follow Up with MARCO BLOOM MD, [facility] When Why: Follow-up as needed Where: [address] [place] [address] [place] [address]- [phone] Follow Up with MARCO MOJICA MD When Where: [address] [place] [phone] Follow Up with Go to emergency room if symptoms worsen When Allergies Contrast dye (Dizziness, Hives) Medications Please ask your primary doctor or pharmacist before taking any other medication not listed, including over the counter drugs, herbal medications, vitamins and or supplements as they may interact withyour home medications. What How Much When Instructions Last Dose Unchanged acetaminophen-hydrocodone (acetaminophen-hydrocodone 325 mg-5 mg oral tablet) 1 tab(s) by mouth Every 6 hours as needed for for pain Please take this list to your next doctor s visit. Bring all medications you take, including over the counter medications, herbals and other supplements with you to your doctor s visit. Patients and families are reminded to discard old lists and to update any records with all medication providers or retail pharmacies. Education Materials [place] Aspiration or Drainage Discharge Instructions Interventional Radiology [facility] [address] [address] Today, you had a drainage or aspiration of a cyst with Sclerotherapy. This procedure was done to help your doctor treat the signs and symptoms you have been experiencing. These instructions should befollowed after your procedure to reduce the chance of experiencing complications. Diet: Resume your normal diet as tolerated. Activity: Rest for the remainder of the day. You may resume your normal activity tomorrow. You may bathe/shower after 24 hours, unless you have a drainage catheter. Do not soak or submerge site (including swimming or hot tubs) until a scab forms. No heavy lifting, pushing, or straining. Dressing: Check the site for bleeding. Apply pressure to the site if bleeding excessively and call your physician. Change the band aid as needed; it can be removed after 24 hours. Keep the site dry at all times until a scab forms over the site. Pain Control: The puncture site may be sore for 1 to 2 days following the procedure. Jrwg-uyi-plszoty pain medication should be used for pain or discomfort. Please check with the physician who ordered this procedure for you for their specific recommendations. If your pain is not relieved or becomes more severe, notify the physician who sent you for this procedure. CT Aspiration or Drainage Discharge Instructions If you were sedated for this procedure: Avoid alcoholic beverages for 24 hours after your procedure. Do not drive or operate heavy machinery for 24 hours after your procedure. Do not make any legal decisions for 24 hours after your procedure. Medication: Please resume all medications today per home schedule. When to seek medical help: Lightheadedness, dizziness, or fainting. Infection: fever greater than 101 degrees, chills, redness, warmth, swelling, bleeding, or pus frompuncture site. Increased pain at the puncture site. If you experience any of these issues during the first 24 hours, please follow the instruction below: call [phone] After 24 hours, contact the physician who ordered this procedure for you. Obtaining test results: Please make an appointment with your doctor to obtain your test results. They are usually availablewithin 4 to 7 business days. Do not assume everything is normal if you have not heard from your doctor or medical facility. It is important for you to follow up on all of your test results. Special Instructions: Moderate Conscious Sedation, Adult, Care After These instructions provide you with information about caring for yourself after your procedure. Your health care provider may also give you more specific instructions. Your treatment has been plannedaccording to current medical practices, but problems sometimes occur. Call your health care provider if you have any problems or questions after your procedure. What can I expect after the procedure? After your procedure, it is common: To feel sleepy for several hours. To feel clumsy and have poor balance for several hours. To have poor judgment for several hours. To vomit if you eat too soon. Follow these instructions at home: For at least 24 hours after the procedure: Do not: ? Participate in activities where you could fall or become injured. ? Drive. ? Use heavy machinery. ? Drink alcohol. ? Take sleeping pills or medicines that cause drowsiness. ? Make important decisions or sign legal documents. ? Take care of children on your own. Rest. Eating and drinking Follow the diet recommended by your health care provider. If you vomit: ? Drink water, juice, or soup when you can drink without vomiting. ? Make sure you have little or no nausea before eating solid foods. General instructions Have a responsible adult stay with you until you are awake and alert. Take mmxl-udd-egciwpo and prescription medicines only as told by your health care provider. If you smoke, do not smoke without supervision. Keep all follow-up visits as told by your health care provider. This is important. Contact a health care provider if: You keep feeling nauseous or you keep vomiting. You feel light-headed. You develop a rash. You have a fever. Get help right away if: You have trouble breathing. This information is not intended to replace advice given to you by your health care provider. Make sure you discuss any questions you have with your health care provider. Document Released: 12/15/2013 Document Revised: 02/06/2018 Document Reviewed: 06/15/2016 [employer] Patient Education 2020 [employer] Additional Information VACCINATE! IT SAVES LIVES! Members of the community who have not yet received the COVID-19 vaccine and would like to receive it can visit one of [facility] vaccine clinics. There are many vaccine clinic locations within the [facility]. For locations and available times, please visit https://gettheshot.coronavirus.[place].gov/. It is important to note that some COVID mobile vaccine clinics are held outdoors and may be canceled in rainy or stormy conditions. To learn more about pediatric vaccinations (ages 5-11), we invite you to visit the [facility] webpage. https://www.[facility].org/pages/2354-Xqdfd-Hpaecmtbegf-Hzbbankjib-Nwpjp-Yuh stions.htmlTo learn more about the COVID-19 vaccine, we invite you to visit the CDC website for a list of frequently asked questions.https://www.cdc.gov/coronavirus/2019-ncov/vaccines/faq.html [employer] Patient Portal Access Instructions: Stay connected with your healthcare team and access your personal medical information anytime with the [facility] Patient Portal. Please follow the directions below to create your [employer] account: 1.Access the email account you provided upon registration to the hospital/physician office.2.Look for an invitation email from [facility].3.Open the email and access the invitation link: AcceptInvitation to [facility].4.Fill in the required feliz to create your account. To access your account, visit [employer]ma deliat. Click the blue button labeled Access Patient Portal and then log in with the username and password that you created in the steps above. You will be able to view your test results, lab results, a summary of your visits, upcoming appointments and more. There is also a convenient messaging option where you can send secure messages to your p rovider. In addition, you will have the ability to download any documents or summaries to your computer and/or send the information securely to a physician. Remember that your healthcare information is confidential, so carefully consider who you will allowto register on the [facility] for access to your information. You can also access the [facility] on the [facility] sylvia. Simply click on Patient Portal and then log into your account. If you would like to receive a full copy of your medical records, please contact the [facility] Medical Records Department by calling [phone], Friday through Friday between 8 a.m. and 4:30 p.m. HOW TO SAFELY DISPOSE OF PRESCRIPTION MEDICATIONS Please use one of the following methods to safely dispose of your unused medications. 1.Use a drug disposal kit: the drug disposal pouch allows you to safely discard your old and unuseddrugs. Ask your nurse to give you one when you are discharged.2.Visit a local take-back location: Many local pharmacies and police departments have programs that collect old and unwanted prescriptiondrugs. Call your local pharmacy or go to http://txtr.[employer]elloc[employer]/3Z0Ko9z to find one close to you.3.Make use of household items: Use cat litter or old coffee grounds to dispose medications if other options arenot available. Mix your drugs with these household products, seal them in an airtight container andthrow it into the garbage. Call [facility]: [phone] to be sure your drugs can be disposed of in this way. Some medicines may require a different approach.4.Never flush your medications down the toilet. IF YOU HAVE BEEN PRESCRIBED AN OPIOID FOR PAIN If you have been prescribed [...] have withdrawal symptoms when a medication is stopped, can develop within a few days. KNOW [...] children, family, friends and visitors). The last page of this document has been signed and retained as a CHART COPY. Signatures Patient Education Materials Radiology- CT Aspiration or Drainage 06/23/2019 (CUSTOM) Moderate Conscious Sedation, Adult, Care After Medication Leaflets My discharge plan and instructions have been reviewed and explained to me and I,DEMETRIS RUSHING understand my current condition and have read and understand these discharge instructions. I havereceived a written copy of the plan/instructions. If I have questions, I am aware that I should contact my doctor. Patient/Reception Clerk Signature: Date/Time: Relationship to Patient: Witness Name/Signature: Date/Time: [id number] Note IR Procedure Record Summary Primary Physician: MARCO BLOOM MD Finalized Date/Time: 02/21/23 11:42:44 Pt. Name: JEFF RUSHING D.O.B./Sex: 1995 Female Med Rec #: [id number] Physician: Financial #: [id number] Pt. Type: O Room/Bed: / Admit/Disch: 02/21/23 08:50:00 - Institution: Allergies identified in patient's electronic medical record at time of printing on 02/21/23 Entry 1 Substance Contrast dye Reaction Type Allergy Last Modified By: NICHELLE Grant 02/19/23 08:06:55 Case Attendance- IR Entry 1 Entry 2 Entry 3 Case Attendee MAROC BLOOM MD, Rad Tech Fierstos, Megan R Rad Amanda K Tech Role Performed Primary Surgeon Scrub Technologist Circulating Technologist Details Time In 02/21/23 11:11:00 02/21/23 11:11:00 02/21/23 11:11:00 Time Out 02/21/23 11:46:00 02/21/23 11:46:00 02/21/23 11:46:00 Procedure/Preference IR Sclerotherapy SN IR Sclerotherapy SN IR Sclerotherapy SN Card Last Modified By: NICHELLE Dewitt RN Corey Snider, RN Corey 02/21/23 11:39:13 02/21/23 11:39:13 02/21/23 11:39:13 Entry 4 Case Attendee NICHELLE Dewitt Role Performed Procedure Nurse Details Time In 02/21/23 11:11:00 Time Out 02/21/23 11:46:00 Procedure/Preference IR Sclerotherapy SN Card Last Modified By: NICHELLE Dewitt 02/21/23 11:39:13 Radiology Procedures- IR Entry 1 Procedure/Preference IR Sclerotherapy SN Actual Procedure IR SCLEROTHERAPY SN Card Primary Procedure Yes Primary Surgeon MARCO BLOOM MD Anesthesia/Sedation Local, IV Sedation Type Additional Procedure Times Start 02/21/23 11:17:00 Stop 02/21/23 11:39:00 Specialty Service SN Radiology Procedure EBL 1 mL Last Modified By: NICHELLE Dewitt 02/21/23 11:39:16 Radiology Procedure Details - IR Entry 1 Radiology Sedation Case Times Sedation Start Time 02/21/23 11:17:00 Sedation Stop Time 02/21/23 11:39:00 Sedation Total Time 22min Radiology - Fluid/Drainage Fluid Amount mL: 58 Fluid Description sanguinous Radiology Contrast Contrast Used? Yes Dose 25 mL Medication OMNIPAQUE 300 50ML 10/PK Y-530 [facility] [id number] Radiology Flouroscopy Fluoroscopy Used? Yes Fluoro Dose (mGy) 46 Fluoro Time 0.9min Radiology Local Local Used? Yes Local Type: lidocaine 2% Local Dose 8ml Radiology Procedure Site Site/Location abdomen Site Condition No complications Dressing Type Gauze sponge 4 X 4, Technologist Notes 40ml etoh injected by Transparent dr bloom Last Modified By: NICHELLE Dewitt 02/21/23 11:42:27 General Case Data - IR Entry 1 Case Information Room IR 18 Case Level IR Level 2 Wound Class None Specialty SN Radiology Procedure ASA Class None Diagnosis Preop Diagnosis splenic cyst Postop Same As Preop Yes Postop Diagnosis splenic cyst Last Modified By: NICHELLE Dewitt 02/21/23 11:30:14 Medication Administration- IR Entry 1 Entry 2 Entry 3 Medication versed fentanyl versed Time Administered 02/21/23 11:21:00 02/21/23 11:21:00 02/21/23 11:29:00 Route of Admin IV Push IV Push IV Push Dose 1mg 50mcg 1mg Volume VORB * *Verbal Order Read Back (VORB) is required for NON- PHYSICIAN administration of medications. Administered by No No No Physician? Administered by: NICHELLE Dewitt RN Corey Snider, RN Corey Verbal Order Read MARCO BLOOM MD, JAMES MD BUCHINO, JAMES MD Back from: Last Modified By: NICHELLE Dewitt RN Corey Snider, RN Corey 02/21/23 11:27:50 02/21/23 11:27:50 02/21/23 11:33:39 Entry 4 Medication fentanyl Time Administered 02/21/23 11:29:00 Route of Admin IV Push Dose 50mcg Volume VORB * *Verbal Order Read Back (VORB) is required for NON- PHYSICIAN administration of medications. Administered by No Physician? Administered by: NICHELLE Dewitt Verbal Order Read MARCO BLOOM MD Back from: Last Modified By: NICHELLE Dewitt 02/21/23 11:33:39 Procedure Case Times- IR Entry 1 Patient In Procedure Patient In OR 02/21/23 11:11:00 Patient Out of OR 02/21/23 11:46:00 Procedure Start/Stop Procedure Start Time 02/21/23 11:17:00 Procedure Stop Time 02/21/23 11:39:00 Last Modified By: NICHELLE Dewitt 02/21/23 11:39:12 Immediate Post Procedure Note - IR Entry 1 Immediate Post Yes Procedure Note displayed for Physician to review Closure Technique Closure Technique Other than Primary Last Modified By: NICHELLE Dewitt 02/21/23 11:29:47 Immediate Post Procedure Note - IR Signed By: MARCO BLOOM MD 02/21/23 11:40 Allergy Information- IR Entry 1 Allergies Reviewed? Yes Allergies Reviewed Medical Record With Last Modified By: NICHELLE Dewitt 02/21/23 11:24:22 Radiology Protocols/Time Out- IR Entry 1 Preprocedure Clinician Verifies Correct patient ID When Clinically Confirmation of correct using name & date Indicated side(s) and site(s), or MRN, Accurate Correct diagnostic and procedure, complete radiology tests Informed Consent, H & P available, Required update immediately blood products, prior to procedure, if implants, devices applicable and/or special equipment available OR/Procedure Room/Bedside Time 02/21/23 11:17:00 Clinician Verifies Correct patient identity including EMR & records using name and date or medical record number, Accurate procedure consent form, Correct patient position, Necessary equipment is available, Anticipated non-routine events with surgical team (case duration, estimated blood loss, patient specific concerns)., Santiago patient factors for recovery and management identified with surgical team. When Applicable Confirmation correct Team Members MARCO BLOOM MD, side and site marked, Present for Time Out Mono Line Maintenance Relevant images and Radha K, Fierstos, results are properly Kendy R Line Maintenance, labeled and NICHELLE Dewitt appropriately displayed, Alcohol based prep dry, Double verification of sterility indicators complete Instrument Sterility Team Members MARCO BLOOM MD, Verifying Sterility Mono Line Maintenance Radha K Procedure IR Sclerotherapy SN Last Modified By: NICHELLE Dewitt 02/21/23 11:26:52 Skin Prep- IR Entry 1 Procedure IR Sclerotherapy SN Skin Prep Prep Area Abdomen Side Left By Mono Line Maintenance Prep Agents Chloraprep Radha K Hair Removal Method N/A Last Modified By: NICHELLE Dewitt 02/21/23 11:29:22 Patient Positioning- IR Entry 1 Procedure IR Sclerotherapy SN Body Position OP Supine Feet Uncrossed? Yes Pressure Points Yes Checked Last Modified By: NICHELLE Dewitt 02/21/23 11:29:30 Radiology Procedure Plan - IR Entry 1 Radiology - Nursing Care Plan Outcome Statement The patient Outcome Statement The patient receives demonstrates knowledge Cont. appropriate of the expected medication(s), safely responses to the administered during the operative/invasive perioperative/invasive procedure., The period., The patient is patient's value system, free from signs and lifestyle, ethnicity, symptoms of injury and culture are caused by extraneous considered, respected, objects (equipment, and incorporated in the instrumentation, perioperative plan of sponges, or sharps). care., The patient is free from signs and symptoms of infection., The patient is free from signs and symptoms of injury related to positioning. Radiology - Action Plan Outcomes Met? Yes Mission Analyst NICHELLE Dewitt Completing Procedure Plan Last Modified By: NICHELLE Dewitt 02/21/23 11:30:03 Case Comments Finalized By: NICHELLE Dewitt Document Signatures Signed By: NICHELLE Dewitt 02/21/23 11:42 [facility]Idk[facility]zoj30[facility]-1088 History and physical note IR PREPROCEDURE H&P UPDATE IF A HISTORY AND PHYSICAL EXAMINATION HAS BEEN COMPLETED PRIOR TO ADMISSION TO THE HOSPITAL, AN UPDATED EXAMINATION MUST BE COMPLETED AND DOCUMENTED WITHIN 24 HOURS AFTER ADMISSION OR REGISTRATION BUT BEFORE A SURGICAL PROCEDURE. I have examined the patient, reviewed the H&P, and there are no changes unless noted below: Patient is allergic to contrast. Not pre medicated. The most recent H&P/Office Note has been performed on 02/20/2023 and can be found on paper, which has been scanned into the [facility] PACS/RIS system. _ Digitally Signed by UMANG RICH PA-C on 02/21/2023 09:40 AM Digitally Signed by MARCO BLOOM MD on 02/21/2023 09:51 AM [facility] [id number] Hospital Discharge instructions Patient Education 02/15/2023 14:05:58 [...] to nausea. Constipation, diarrhea, and a fever maygo along with the pain. The pain may [...] also be good. Sports drinks may also help,especially if they are not too acidic. Don't [...] meats. These foods will pass more easily throughthe intestine. Don t have whole-grain foods, whole [...] or water and you are getting dehydrated 2967-2705 [employer]. [address] [place] [address]. All rights reserved. This information is not intended as a substitute for professional medical care. Always follow yourhealthcare professional's instructions. Follow Up Care 02/15/2023 11:50:16 With:MARU REYES MD, Surgery Address: [address] [place], [place] [id number] [phone] When:1-2 days [facility] 12-09-2023 Note Discharge Instructions Thank you for allowing [facility] to assist you with your healthcare needs. The following is importantdischarge information regarding your hospital visit. Diagnosis from Today's Visit Abdominal pain Splenic cyst What to Do Next Instructions from Your Care Team No qualifying data available. Post Acute Orders No qualifying data available. You Need to Schedule the Following Appointments Follow Up with MARU REYES MD, Surgery When Within 1-2 days Where: [address] [place] [address]- [phone] Allergies Contrast dye Medications Please ask your primary doctor or pharmacist before taking any other medication not listed, including over the counter drugs, herbal medications, vitamins and or supplements as they may interact withyour home medications. What How Much When Why Instructions Last Dose New acetaminophen-hydrocodone (Vanzant 325- 5 mg oral tablet) 1 tab(s) [...] to nausea. Constipation, diarrhea, and a fever maygo along with the pain. The pain may [...] also be good. Sports drinks may also help,especially if they are not too acidic. Don't [...] meats. These foods will pass more easily throughthe intestine. Don t have whole-grain foods, whole [...] or water and you are getting dehydrated 7044-1314 [employer]. [address] [place] [address]. All rights reserved. This information is not intended as a substitute for professional medical care. Always follow yourhealthcare professional's instructions. Additional Information VACCINATE! IT SAVES LIVES! Members of the community who have not yet received the COVID-19 vaccine and would like to receive it can visit one of [facility] vaccine clinics. There are many vaccine clinic locations within the [facility]. For locations and available times, please visit www.gettheshot.coronavirus.[place].gov/. It is important to note that some COVID mobile vaccine clinics are held outdoors and may be canceled in rainy or stormy conditions. To learn more about pediatric vaccinations (ages 5-11), we invite you to visit the [facility] webpage. https://www.[facility].org/pages/1896-Cccts-Vivqscwtcrg-Mmnwhnyfms-Jraqe-Esp stions.htmlTo learn more about the COVID-19 vaccine, we invite you to visit the CDC website for a list of frequently asked questions. https://www.cdc.gov/coronavirus/2019-ncov/vaccines/faq.html [employer] Patient Portal Access Instructions: Stay connected with your healthcare team and access your personal medical information anytime with the [employer] Patient Portal. If you would like a full copy of your medical records please contact the [facility] Medical Records Department Friday through Friday between 8a.m. and 4:30p.m. Please follow the directions below to access the portal: 1.Access the email account you provided upon registration to the [facility].2.Look for an invitation email from [facility].3.Open the email and access the invitation link: Accept Invitation to [facility]4.Fill in the required feliz to create your account. Sign into www.[employer] with your username and password that you [...] you will allow to register on the [employer] Patient Portal for access to your information. You can also access the [employer] Patient Portal on the [employer]T. Simply click on Health Records under [employer] and then click on the [facility] logo. HOW TO SAFELY DISPOSE OF PRESCRIPTION MEDICATIONS Please use one of the following methods to safely dispose of your unused medications. 1.Use a drug disposal kit: the drug disposal pouch allows you to safely discard your old and unuseddrugs. Ask your nurse to give you one when you are discharged.2.Visit a local take-back location: Many local pharmacies and police departments have programs that collect old and unwanted prescriptiondrugs. Call your local pharmacy or go to http://bit.Intellocorp/1V6Ri4c to find one close to you.3.Make use of household items: Use cat litter or old coffee grounds to dispose medications if other options arenot available. Mix your drugs with these household products, seal them in an airtight container andthrow it into the garbage. Call [facility]: [phone] to be sure your drugs can be [...] drowsiness, such as benzodiazepines, also known as benzos,including diazepam and alprazolam, muscle relaxants or sleep aids. Never sell or share prescriptionopioids. This is illegal. Store opioids in a secure place and out of reach of others (including children, family, friends and visitors). The last page(s) of this document has been signed and retained as a CHART COPY Signatures Patient Education Materials Abdominal Pain, Unknown Cause, (Female) Medication Leaflets My discharge plan and instructions have been reviewed and explained to me and IKRISTAN TAYLORL understand my current condition and have read and understand these discharge instructions. I havereceived a written copy of the plan/instructions. If I have questions, I am aware that I should contact my doctor. Patient/Reception Clerk Signature: Date/Time: Relationship to Patient: Witness Name/Signature: Date/Time: [facility]12-09-2023 Evaluation + Plan noteExtracted from: Title:[place] [facility] Note Author:OSCAR LEES DO Date:02/15/23 [...] this definitively. Given a short course of Vanzant for pain control over the weekend and referred to Dr. Reyes as an outpatient. [facility] 12-09-2023 Note ORIGINAL EXAMINATION: TWO XRAY VIEWS [...] Date: 02/15/2023 1:26:39 PM Ordering Provider: [facility] 02-15-2023 Note ORIGINAL EXAMINATION: CT OF THE ABDOMEN AND PELVIS WITH EGMZOFJT87/9/2023 1:[address] ABDOMEN/PELVIS WITH CONTRAST TECHNIQUE: [...] Sign Date: 02/15/2023 1:35:36 PM Ordering Provider: [facility]12-09-2023 History and physical note Date of Service [...] this definitively. Given a short course of Vanzant for pain control over the weekend and [...] PM Digitally Signed by AUGIE HANNAH MD [facility]11-30-2022 Miscellaneous Notes* Telephone Encounter - Isi Martell APRN.CNP - 02/06/2022 3:53 PM EST Negative for Chlamydia and Gonorrhea. May stop Doxycyline. 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 Thanks documented in this encounterTrihealth [facility]11-30-2022 Miscellaneous Notes* Telephone Encounter - Kendy [...] Isi Martell APRN. CNP documented in this encounterTrihealth [facility]hes[facility] Hospital11-28-2022 NoteHNO ID: [id number] Author: Isi Martell APRN.IOANA Service: ? Author Type: Nurse Practitioner Type: [...] Exam Vitals reviewed. Exam conducted with a trade mark examiner present. Constitutional: General: She is not in acute distress. Appearance: Normal appearance. She is not ill-appearing, toxic-appearing or diaphoretic. HENT: Head: Normocephalic and atraumatic. Genitourinary: Exam position: Lithotomy position. Vagina: Vaginal discharge present. Cervix: Discharge present. 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 prosthetic technician, was in room during physical examination [...] DOXYCYCLINE HYCLATE 100 MG CAPSULE Isi Martell APRN.CNPOhiohealth O'Bleness Hospital11-28-2022 Instructions* Patient Instructions* Isi Martell APRN.CNP - 2022 12:16 PM EST -Will call with STD results -Based on clinical presentation will treat for Chlamydia -Drink plenty of fluids to stay hydrated -Vaginal rest until results are received of all STD testing -Educational pamphlet regarding Chlamydia given documented in this encounterTrihealth [facility]11-28-2022 History of Present illness Narrative* Isi [...] Exam Vitals reviewed. Exam conducted with a trade mark examiner present. Constitutional: General: She is not in acute distress. Appearance: Normal appearance. She is not ill-appearing, toxic-appearing or diaphoretic. HENT: Head: Normocephalic and atraumatic. Genitourinary: Exam position: Lithotomy position. Vagina: Vaginal discharge present. Cervix: Discharge present. 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 prosthetic technician, was in room during physical examination [...] DOXYCYCLINE HYCLATE 100 MG CAPSULE Isi Martell APRN.MACHINE SLAT BASKET MAKER documented in this encounterTrihealth [facility]hes[facility] Hospital05-12-2022 History of Present illness Narrative* Khushboo Hussein RN - 07/19/2021 6:22 PM EDT Pt arrives after speaking with her BILL CHECKER office. She had positive test on Friday [...] due to progesterone issue. documented in this encounterKindred [id number] Evaluation + Plan note Future Scheduled Tests Radiology* CT Thorax w[facility]o Contrast [facility] History of Present illness Narrative* Lencho [...] Discharged with supportive care. Lencho Solis PA-C [id number] SSI File#: [id number] END OF DOCUMENT / CHANGE LOG FOLLOWS Last Edited By Elec. Signed By Lencho SolisDYKLE Lencho Solis on 04/29/2020 10:45 ET on 04/29/2020 10:45 ET Revision Number - 2 ^^^ Verified/Reviewed by 04/29/[address] [facility] PATIENT NAME: JEFF PORTILLO [address] [place] MEDICAL REC #: [id number] [place] [address] TUSAADIAARAWAAdama STATCARE REPORT STATCARE PHYSICIAN documented in this encounterTrihealth Bethesda North HospitalDisst. john of god hospitalr summary Author Margarito Huston [facility] Note Date/Time July 25, 2024 1:21p [facility] Medical Records Department [address] [place] [address] Emergency Department Summary 07/25/24 MR#: [id number] Acct: [id number] Name: JEFF RUSHING Rep #:[id number] : 1995 29 From: Margarito Huston DO PCP: Care Physician,No Primary Status :REG ER Location: ED HPI HPI - Female History of Present Illness Chief Complaint: Vag Bld, Preg Narrative Narrative: 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 Patient states that she isabout 6 weeks and notes that around Mother's Day she started having some spotting with brown discharge states that she followed up with her OB at that point time and noted that they did an ultrasound that showed a intrauterinegestational sac. She states that she is on progesterone suppositories as she has a history of low progesterone and also was recently treated with Keflex for urinary tract infection. Patient states that last night she had some cramping and had some heavier bleeding therefore she called her BILL CHECKER and they advised her to come here for further evaluation management. Patient states that she is not have any pain right now. [facility] Medical History Recurrent loss Trichomonal vaginitis Seasonal allergies Shingles Cyst of spleen Home Medications ?Medication ?Instructions ?Recorded ?Last Taken ?Type progesterone micronized 200 mg 400 mg (2 x 200 mg) vag inal ONCE 07/06/24 Unknown Rx capsule (Prometrium) #60 caps aspirin 81 mg tablet,delayed 81 mg PO QDAY 07/16/24 Un known History release (Adult Low Dose Aspirin) multivit-min no.71-iron fum 28 cap PO 07/16/24 Unknown History mg-folate no.1 1 mg-dha 300 mg capsule (PNV-Arapaho) cephalexin 500 mg capsule 500 mg PO Q12H 5 days #10 ca ps 07/25/24 Unknown Rx Allergy/AdvReac Type Severity Reaction Status Date / Time Iodinated Contrast Media Allergy Mild Hives Verified 07/25/24 11:13 Family History Grandmother Throat cancer, Onset Age: 68 Maternal Grandfather Lung cancer Maternal, smoker-onset age unknown Father Diabetes Hypertension Myocardial infarction Surgical History V[place] teeth removed Social History adopted: No household members: significant other housing: house current occupational status: employed 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 Quit Vaping 07/06/24 quit status: quit date established alcohol intake: current alcohol intake frequency: holidays/special occasions only details: socially - but not while substance use type: does not use, former substance user Date of last use: 4 years ago and marijuana well-balanced diet: daily or most days caffeine: Yes Type: carbonated beverages Number of servings: 1 eating out: rarely or never during the past year weight has: increased > 10 lbs what type of physical activity do you participate in: none whitney/mormon: Christianity seatbelt use: always do you feel safe at home: Yes additional social history: Significant other - Franck ROS ROS ED ROS Narrative Constitutional: Denies fevers, chills, headaches malaise, dizziness Abdomen: Denies abdominal pain nausea vomit diarrhea : Complains of vaginal spotting as noted above denies painful urination, hematuria, polyuria Neurological: Denies numbness, weakness, tingling Musculoskeletal: Denies back pain Skin: Denies rashes or lesions EXAM Physical Exam Narrative Exam Narrative: General: Patient was lying bed rest comfortably did not appear to be acute distress Head: Atraumatic, normocephalic Eyes: PERRL bilaterally, EOMI bilateral, no conjunctival injection noted Neck: Soft, supple, trachea midline Abdomen: Soft, nondistended, nontender to palpation Extremities: +5/5 strength in the bilateral upper and lower extremities Neurological: Patient follow commands knew that she was at [facility] 2024 Skin: Warm, dry, intact no rashes lesions noted Const Vital Signs: 07/25/24 11:13 Temperature 97.3 F L Temperature Source Temporal Pulse Rate 89 Respiratory Rate 16 Blood Pressure 134/101 H Blood Pressure Mean 112 Pulse Ox 99 Oxygen Delivery Method Room Air MDM MDM MDM Narrative Medical decision making narrative: Patient is a 29-year-old female who presented to the emergency department chief complaint of vaginal spotting in the current setting of at 6 weeks. On the differential diagnosis includes but limited to threatened miscarriage, missed miscarriage, UTI. Once workup is obtained reviewed she will be reevaluated. Patient states that her hCG when it was checked on Friday was 15,034. Patient CBC reviewed and was largely unremarkable white blood count normal at 6.7, hemoglobin 14.9, platelet count of 203. Patient sodium is 136, potassium normal at 3.6, creatinine was 0.41. Patient's AST and ALT were 1722 respectively. Patient lipase normal at 17, hCG increased to 28,328. Patient urinalysis showed negative nitrates 25 leukocyte esterase 0-5 white cells with 2+ bacteria. She states that she completed the antibiotic on Friday she will beplaced back on Keflex this was sent for culture. Patient's ultrasound was reviewed which showed a single live intrauterine with heartbeat of 120 bpm. I called and discussed the case with on-call BILL CHECKER Dr. Vu who states the patient to follow-up early this coming week with them in the office. Discussed this plan with the patient and significant other bedside they are agreeable with this plan. She will be placed on pelvic rest and was advised to refrain from intercourse or anything in the vagina. She was encouraged to take antibiotics as prescribed and follow-up on urine culture as well. She is encouraged to return with worsening symptoms or concerns. They are agreeable toplan all question concerns answered she is discharged home in stable condition. Lab Data Labs: Laboratory Results - last 24 hr 07/25/24 07/25/24 11:28 11:29 WBC 6.7 RBC 5.09 Hgb 14.9 Hct 42.8 MCV 84.1 MCH 29.3 MCHC 34.8 RDW Std Deviation 36.9 RDW Coeff of Enma 12.2 Plt Count 203 MPV 11.9 Immature Gran % (Auto) 0.300 Neut % (Auto) 58.7 Lymph % (Auto) 35.0 Gilliam % (Auto) 5.1 Eos % (Auto) 0.6 Baso % (Auto) 0.3 Absolute Neuts (auto) 3.9 Absolute Lymphs (auto) 2.34 Nucleated RBC % 0 Sodium 136 Potassium 3.6 Chloride 104 Carbon Dioxide 20.4 L Anion Gap 12 BUN 5 Creatinine 0.41 L Estim Creat Clear Calc 260.82 H Est GFR (MDRD) Non-Af 138 BUN/Creatinine Ratio 12.3 Glucose 87 Calcium 9.3 Total Bilirubin 0.52 AST 17 ALT 22 Alkaline Phosphatase 73 Total Protein 7.2 Albumin 4.4 Globulin 2.8 Albumin/Globulin Ratio 1.5 Lipase 17 HCG, Quant 36789 H Serum , Qual POSITIVE Urine Color Yellow Urine Clarity Sl. Cloudy Urine pH 6.5 Ur Specific Hurley 1.015 Urine Protein 30 H Urine Glucose (UA) Normal Urine Ketones Negative Urine Occult Blood 150 H Urine Nitrite Negative Urine Bilirubin Negative Urine Urobilinogen Normal Ur Leukocyte Esterase 25 H Urine RBC 0-5 SEEN Urine WBC 0-5 SEEN Ur Squamous Epith Cells 0-5 SEEN Urine Bacteria 2+ Urine Mucus 1+ Blood Type O POSITIVE Radiography Diagnostic Testing: Clinical Impression(s) from Imaging Studies Obstetrics Ultrasound 07/25/24 11:23 IMPRESSION: Single live intrauterine . Reading Location: [facility] Discharge Plan Triage Chief Complaint: Vag Bld, Preg ED Provider: Margarito Huston Dx/Rx/DC Orders Clinical Impression: Vaginal bleeding affecting early , Asymptomatic bacteriuria during Prescriptions: New cephalexin 500 mg capsule 500 mg PO Q12H 5 Days Qty: 10 0RF No Action PNV-Arapaho 28-1-300 mg capsule PO aspirin [Adult Low Dose Aspirin] 81 mg tablet,delayed release (DR/EC) 81 mg PO QDAY progesterone micronized [Prometrium] 200 mg capsule 400 mg vaginal ONCE Qty: 60 4RF Rx Instructions: Vaginal nightly until 16 weeks Primary Care Provider: Care Physician,No Primary Referrals: Care Physician,No Primary [Primary Care Provider] - Activity Restrictions/Additional Instructions: Follow-up with your BILL CHECKER in the outpatient setting call them on Friday for a follow-up appointment and see if they want you to be seen tomorrow versus at your scheduled appointment on Friday. You are placed on pelvic rest no sex anddo not insert anything in your vagina. Follow-up on urine culture with your BILL CHECKER and take antibiotics as prescribed. Return with any other concerns Print Language: Mosotho Disposition Disposition: Home, Self Care What to do if you have Problems For any increased pain, shortness of breath, bleeding, nausea or vomiting, chestpain, or any unexpected problems, contact your Primary Care Provider. Call [facility] ([phone]) or report to the closest Emergency Room. Call 911 if necessary. 07/25/24 1321 <Electronically signed by Margarito Huston DO> Joseigner Signature (if applicable): CC: No Primary Care Physician ~ Signed [facility] Work Phone: Evaluation + Plan note No data available for this section [facility] Evaluation + Plan note Future Appointments Appointment Date:02/20/2023 02:30:00 PM Scheduled Provider:MARU REYES MD Location:[facility] Appointment Type:GS OV Pre Op Appointment Date:02/21/2023 10:00:00 AM Scheduled Provider: Location:IR Appointment Type:IR Sclerotherapy Diagnostic Tests Pending * Miscellaneous LC Test 02/19/23 Future Scheduled Tests Laboratory* [facility] Lab Send out (Blood Specimens) 02/19/23 Radiology* IR Sclerotherapy 02/21/23 [facility] Evaluation note* Diagnosis Miscarriage- Primary Unspecified spontaneous without mention of complication [facility]* Diagnosis Dysuria- Primary Vaginal discharge Leukorrhea, not specified as infective [facility]* Diagnosis Bacterial vaginosis- Primary Vaginitis and vulvovaginitis, unspecified [facility]* Diagnosis Onset Date Resolution Status PCOS (polycystic ovarian syndrome) acute Vaginal discharge acute Encounter for annual routine gynecological examination noneactive [facility] Work Phone: Evaluation note* Diagnosis COVID-19- Primary Acute cough SOB (shortness of breath) Shortness of breath Fatigue, unspecified type Bilateral impacted cerumen Impacted cerumen At increased risk of exposure to COVID-19 virus Possible PND (post-nasal drip) Postnasal drip Non-recurrent acute suppurative otitis media of both ears without spontaneous rupture of tympanic membranes Acute cough documented in this encounter [facility] Work Phone: Evaluation noteNo assessment information available [facility] Work Phone: Evaluation note* Diagnosis Onset Date Resolution Status Admit Date Anxiety acute July 27, 2024 10:11am Asymptomatic bacteriuria dur ing acute July 27, 2024 1 0:11am Bicornuate uterus acute July 10:11am Former smoker, stopped smoki ng in distant past acute July 27, 2024 1 0:11am Hemorrhagic cyst of ovary acute July 27, 2024 10:11am History of marijuana use acute July 27, 2024 10:11am History of nicotine vaping acute July 27, 2024 10:11am History of recurrent [place] July 27, 2024 10:11am Obesity affecting acute July 27, 2024 10:11am PCOS (polycystic ovarian syndrome) acute July 27, 2024 1 0:11am acute July 27, 2024 10:11am at early stage acute July 27, 2024 10:11am Spotting in early acute July 27, 2024 10:11am Supervision of high-risk acute July 27, 2024 1 0:11am Vaginal bleeding affecting e sylwia acute July 27, 2024 1 0:11am Vaginal discharge acute July 10:11am Qgecd-Eszflrrwp-Gmflv syndrome acute July 27, 2024 10:11am [facility] Work Phone: Hospital Discharge instructions No data available for this section [facility] Hospital Discharge instructions* Attachments The following attachments cannot be sent through Care Everywhere. * Miscarriage (Mosotho) [facility] Additional Instructions Follow-up with your BILL CHECKER in the outpatient setting call them on Friday for a follow-up appointment and see if they want you to be seen tomorrow versus at your scheduled appointment on Friday. You are placed on pelvic rest no sex and do not insert anything in your vagina. Follow-up on urine culture with your BILL CHECKER and take antibiotics as prescribed. [facility] Work Phone: Progress note No data available for this section [facility] Progress note Author Diana Soliman [facility] Note Date/Time July 27, 2024 11:00 am [facility] [address] [place] [address], [address] [place] [address] OFFICE VISIT Date of Service: 07/27/24 MR#: [id number] Acct: [id number] Name: JEFF RUSHING Rep #: [id number] : 1995 Provider: Dr. Caitlin Leigh DO Age/Sex: 29/F [place] [facility]: Signed Intake Vital Signs 10/17/23 10:44 07/16/24 14:24 07/25/24 11:13 07/27/24 10:15 07/27/24 10:15 Height 5 ft 8 in 5 ft 8 in 5 ft 8 in 5 ft 8 in 5 ft 8 in Weight: 234 lb 2 oz BMI 35.6 BP 138/88 H Intake Visit Reasons: NOB: LMP 05/29/24, JYOTHI 03/05/25 Beam Doffer Required: No Is patient in pain?: No Allergies Iodinated Contrast Media Allergy (Mild, Verified 07/27/24 10:13) Hives Medications ?Medication ?Instructions ?Recorded ?Confirmed ?Type progesterone micronized 200 mg 400 mg (2 x 200 mg) vag inal ONCE 07/06/24 07/27/24 Rx capsule (Prometrium) #60 caps aspirin 81 mg tablet,delayed 81 mg PO QDAY 07/16/24 History release (Adult Low Dose Aspirin) multivit-min no.71-iron fum 28 cap PO 07/16/24 5 History mg-folate no.1 1 mg-dha 300 mg capsule (PNV-Arapaho) cephalexin 500 mg capsule 500 mg PO Q12H 5 days #10 ca ps 07/25/24 07/27/24 Rx ondansetron 4 mg disintegrating 4 mg PO Q6H PRN nausea and 07/27/24 07/27/24 Rx tablet vomiting #30 tabs Last Menstrual Period: 05/29/24 Zika: Zika virus screening: Negative : No PFSH PFSH Medical History Recurrent loss Trichomonal vaginitis Seasonal allergies Shingles Cyst of spleen Surgical History [place] teeth removed Family History Grandmother Throat cancer, Onset Age: 68 Maternal Grandfather Lung cancer Maternal, smoker-onset age unknown Father Diabetes Hypertension Myocardial infarction Social History adopted: No household members: significant other housing: house current occupational status: employed 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 Quit Vaping 07/06/24 quit status: quit date established alcohol intake: current alcohol intake frequency: holidays/special occasions only details: socially - but not while substance use type: does not use, former substance user Date of last use: 4 years ago and marijuana well-balanced diet: daily or most days caffeine: Yes Type: carbonated beverages Number of servings: 1 eating out: rarely or never during the past year weight has: increased > 10 lbs what type of physical activity do you participate in: none whitney/mormon: Christianity seatbelt use: always do you feel safe at home: Yes additional social history: Significant other - Franck History 3 Elective abortions Hx Para 0 Spontaneous abortions 2 Hx # Term Pregnancies Ectopic pregnancies Hx # Pregnancies Multiple births # of living children 0 Past Pregnancies Del. Date Name GA/Weeks Outcome Route Bth Weight Infant Gen Labor Lgth Anesthesia Del Locatn Provider FOB 06/10/20 chemical 4 spontaneous 07/16/212021 5 spontaneous HPI NOB: LMP 05/29/24, JYOTHI 03/05/25 Details: JEFF RUSHING is a 29 year old who presents for New OB visit. OB Visit JYOTHI Calculator Estimated Delivery Date Method Current WG Current Estimate 03/13/25 Ultrasound #1 7w 2d Other Estimates 03/05/25 LMP (Certain) 8w 3d 03/17/25 Ultrasound #2 6w 5d Estimated Due Date: 03/05/25 Expected Delivery Route/Plan Labor Preferences- CB/BF classes: [] labor support person: [] labor intervention preferences: [] pain management options preferred: [] cut cord/dad catch: [] : [] PP control planned: [] discussed possible routes of delivery and associated risks: [] special requests: [] Specific Issue/Plans Covid status: [] Flu vaccine: [] Tdap vaccine: [] Rhogam: [] LARC form signed: [] Problem list reviewed and updated with the most current plan of care details and appropriate orders placed. Relevant counseling for the gestational age provided. Continue routine care and follow up unless otherwise noted in visit notes/problem list details Initial Weight: Not Recorded Date -?-?-?-?-?-?-?-?-?-?-?-?- EGA Weight BP Urine Prot -?-?-?-?-?-?-?-?-?-?-?-?- Glucose FHR FuHt Pres Dilation -?-?-?-?-?-?-?-?-?-?-?-?- Effaced St Visit Note 07/27/24 -?-?-?-?-?-?-?-?-?-?-?-?- 7w 2d 234 lb 2 oz 138/88 -?-?-?-?-?-?-?-?-?-?-?-?- 124 -?-?-?-?-?-?-?-?-?-?-?-?- JV- CRL measurin g 6 weeks 5 days with heart tones. last ultrasound was on07/25 in ER and was measuring 7 weeks 0 days. JYOTHI based on that us. still having bleeding. there is a 0.77cm MIGUEL. RTO in one week for repeat ultrasound. stop baby asa, continue progesterone. Menstrual History Last Menstrual Period: 05/29/24 Reported LMP: definite Normal amount/duration: Yes Frequency in days: 29-35 average On hormonal BC at conception: No hCG+: 07/06/24 Antepartum Record Genetic Screening: Congenital Heart Defect: Patient (Ricky Parkinsons Syndrome), Neural Tube Defect: Other, Hemoglobinopathy Or Carrier: Other, Cystic Fibrosis: Other, Chromosome Abnormality: Other, Naveen-Sachs: Other, Hemophilia: Other, Intellectual Disability/Autism: Other, Recurrent Loss/Stillbirth: Other, Other Structural Defect: Other, Other Genetic Disease: Other and Maternal Metabolic Disorder: Other Infection History: Live with someone with TB or Exposed to TB: No, Patient or Partner has history of Genital Herpes: No, Rash or Viral illness since last mentrual period: No, Prior GBS-Infected child: No, History of STD: Yes (Trich in past treated), HIV Infection: No, History of Hepatitis: No, Recent travel outside of [place]: No, Concern for hepatitis exposure: No, Varicella immune: Yes (immune -vaccinated, has had shingles 3-4yrsago) and Covid Vaccinated: No Medical History Medical History: Positive: Psychiatric (anxiety), Seasonal allergies (mild), Operations/hospitalizations (wisdom teeth), Uterine anomaly/marcela (bicornuate uterus-partial), Infertility (was letrazole 4 rounds) and Other (PCOS, obesity) and Negative: Diabetes, Hypertension, Heart disease, Auto-immune disorder, Kidney disease/UTI, Neurologic/epilepsy, Depression/ depression, Hepatitis/liver disease, Varicosities/phlebitis, Thyroid dysfunction, Trauma/domestic violence, History of blood transfusions, D (Rh) Sensitized, Pulmonary (e.g.,TB,Asthma), Drug/latex allergies/reactions, Breast, Computer Training Specialist surgery, Anesthetic complications, History of abnormal pap, Anti-retroviral treatment and Relevant family history (Nothing to add. See PFSH) ACOG First Trimester First Trimester: Desire for , Alcohol, Tobacco Cessation, Illicit/Recreational Drug/Substance Use, Intimate Partner Violence, Barriers to care, Unstable Housing, Communication Barriers, Environmental/Work Hazards, Anticipated Course of Care, Toxoplasmosis Precations, Use of Any medications, Sexual activity, Exercise, Dental Care, Sauna/Hot tub use, Seat Belt use, Childbirth classes/Hospital facilities, Travel, Indications for Ultrasound and Screening for Aneuploidy; Discussed ROS Const Reports system reviewed and no additional complaints, except as documented, Reports fatigue and Denies fever(s) Eyes Reports system reviewed and no additional complaints, except as documented ENT Reports system reviewed and no additional complaints, except as documented Card Denies chest pain and Denies dyspnea Resp Reports system reviewed and no additional complaints, except as documented, Denies cough and Denies dyspnea GI Denies abdominal pain and Reports nausea Reports system reviewed and no additional complaints, except as documented Musc Reports system reviewed and no additional complaints, except as documented Skin/Breast Reports system reviewed and no additional complaints, except as documented Neuro Yes system reviewed and no additional complaints, except as documented Psych Reports system reviewed and no additional complaints, except as documented Endo Reports system reviewed and no additional complaints, except as documented and Reports fatigue Exam Const General: healthy appearing, comfortable and no acute distress Orientation: alert [facility] Head: normal to inspection, normocephalic and atraumatic Ears: hearing grossly normal bilaterally and external ears normal Nose: external nose normal and nares normal Mouth: oral mucosae normal Teeth and gingiva: dentition normal Eyes General: appearance normal, both eyes and all related structures Neck Neck: normal visual inspection, no lymphadenopathy and supple Thyroid: thyroid normal Chest Chest palpation & inspection: normal inspection of the chest Breast inspection: normal inspection of the breasts and normal inspection of the axillae Breast palpation: normal palpation of the breasts and normal palpation of the axillae Resp Effort & Inspection: normal respiratory effort GI Inspection: normal to inspection Palpation: soft and no hepatosplenomegaly General: bladder normal to palpation External Female Exam: normal external appearance and normal appearance of the urethra Urethra: normal appearance of the urethra Speculum Exam - Vagina: normal appearance of the vagina and normal vaginal discharge Speculum Exam - Cervix: normal appearance of the cervix Bimanual Exam- Vagina & Uterus: normal bimanual exam, bladder normal to palpation, non-tender and other Bimanual Exam- Adnexa, other: non-tender Skin General: no rashes or lesions noted Neuro Motor: muscle tone normal throughout and no movement abnormalities noted Extrem General: normal to inspection and full ROM Supplemental Info ACOG book given and patient encouraged to read about nutrition, exercise, weight gain, and food avoidance in . 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 (3) Spotting in early : Status: Acute Comment: HCGx2, formal US (4) Obesity affecting : Status: Acute Comment: HGBA1c (5) History of recurrent miscarriages: Status: Acute Comment: 2020 chemical, week miscarriage, APL neg in 2023 (6) Supervision of high-risk : Status: Acute Comment: , JYOTHI 03/05/25, LOIS Juárez (7) : Status: Acute Comment: discussed NIPT & Carrier testing-undecided (8) History of marijuana use: Status: Acute Comment: last used 4 yrs ago, discussed tox screen initial & random (9) History of nicotine vaping: Status: Acute Comment: Quit 07/06/24 (10) Former smoker, stopped smoking in distant past: Status: Acute Comment: Quit 2021 (11) Anxiety: Status: Acute (12) Iyebd-Uddoomjcd-Mcmst syndrome: Status: Acute (13) at early stage: Status: Acute (14) Bicornuate uterus: Status: Acute (15) Hemorrhagic cyst of ovary: Status: Acute (16) Vaginal discharge: Status: Acute (17) PCOS (polycystic ovarian syndrome): Status: Acute Comment: per OAR Letrozole 2.5mg 12/07 Medications: New ondansetron 4 mg PO Q6H PRN 30 tabs 0RF nausea and vomiting 07/27/24 1100 <Electronically signed by Diana Londono DO> Date _ Diana Leigh DO Cosigner Signature: Date (if applicable) CC: ~ [facility] Work Phone: Reason for referral (narrative)No reason for referral information available[facility] Work Phone: Summary Purpose Family History Relationship Condition Age at Onset Recorded Date/T shelley grandmother Malignant neoplasm of throat Unknown grandfather Malignant neoplasm of lung Unknown father Diabetes mellitus Unknown Hypertension Unknown Relationship Condition Age at Onset Recorded Date/T shelley grandmother Malignant neoplasm of throat 68 grandfather Malignant neoplasm of lung Unknown father Diabetes mellitus Unknown Hypertension Unknown Myocardial infarction Unknown Advance Directives Documents on File Type Date Recorded 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 PCOS (polycystic ova chris syndrome) Vaginal discharge Encounter for annual routine gynecological examination Chief Complaint Admit Date EOER July 08, 2024 10:45a m PNOB/Confirmation of July 16, 2024 1:06pm SPOTTING (STAT) July 19, 2024 11:21 am INT LAB ORDERS July 21, 2024 4:08p m Chief Complaint Admit Date EORDER July 08, 2024 10:45a m PNOB/Confirmation of July 16, 2024 1:06pm SPOTTING (STAT) July 19, 2024 11:21 am INT LAB ORDERS July 21, 2024 4:08p m vag bleed preg July 25, 2024 11:12 am Chief Complaint Admit Date EOER July 08, 2024 10:45a m PNOB/Confirmation of July 16, 2024 1:06pm SPOTTING (STAT) July 19, 2024 11:21 am INT LAB ORDERS July 21, 2024 4:08p m vag bleed preg July 25, 2024 11:12 am NOB: LMP 05/29/24, JYOTHI 03/05/25July 10:11am Reason for Visit Admit Date Anxiety July 27, 2024 10:11 am Asymptomatic bacteriuria during pregnanc y July 27, 2024 10:11am 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 27, 2024 10:11 am Former smoker, stopped smoking in [place] past July 27, 2024 10:11am Hemorrhagic cyst of ovary July 27, 2024 10:11am History of marijuana use July 27, 2024 10:11am History of nicotine vaping July 27 10:11am History of recurrent miscarriages July 272024 10:11am Obesity affecting July 27 10:11am PCOS (polycystic ovarian syndrome) July 092024 10:11am July 27, 2024 10:11 am at early stage July 27, 2024 10:11am Spotting in early July 27 10:11am Supervision of high-risk July 092024 10:11am Vaginal bleeding affecting early pregnan cy July 27, 2024 10:11am Vaginal discharge July 27, 2024 10:11 am Zleiq-Chxhomtoq-Qobjo syndrome July 27, 2024 10:11am Reason for Visit Admit Date Anxiety July 27, 2024 10:11 am 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 27, 2024 10:11 am Former smoker, stopped smoking in past July 27, 2024 10:11am Hemorrhagic cyst of ovary July 27, 2024 10:11am History of marijuana use July 27, 2024 10:11am History of nicotine vaping July 27 10:11am History of recurrent miscarriages July 272024 10:11am Obesity affecting July 27 10:11am PCOS (polycystic ovarian syndrome) July 092024 10:11am July 27, 2024 10:11 am at early stage July 27, 2024 10:11am Spotting in early July 27 10:11am Supervision of high-risk July 092024 10:11am Vaginal discharge July 27, 2024 10:11 am Rmpqm-Dofuupuih-Jorsh syndrome July 27, 2024 10:11am Asymptomatic bacteriuria during pregnanc y July 27, 2024 10:11am Vaginal bleeding affecting early pregnan cy July 27, 2024 10:11am Chief Complaint Admit Date EORDER July 08, 2024 10:45a m PNOB/Confirmation of July 16, 2024 1:06pm SPOTTING (STAT) July 19, 2024 11:21 am INT LAB ORDERS July 21, 2024 4:08p m vag bleed preg July 25, 2024 11:12 am NOB: LMP 05/29/24, JYOTHI 03/05/25July 10:11am 8wk ob *rescan per JV August 03, 2024 2:5 1pm Reason for Visit Admit Date Anxiety July 16, 2024 1:06pm 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 16, 2024 1:06pm Former smoker, stopped smoking in past July 16, 2024 1:06pm Hemorrhagic cyst of ovary July 16, 2024 1:06pm History of marijuana use July 16, 2024 1 :06pm History of nicotine vaping July 16, 2024 1:06pm History of recurrent miscarriages July 1:06pm Obesity affecting July 16 1:06pm PCOS (polycystic ovarian syndrome) July 162024 1:06pm July 16, 2024 1:06pm at early stage July 16, 2024 1 :06pm Spotting in early July 16 1:06pm Supervision of high-risk July 162024 1:06pm Vaginal discharge July 16, 2024 1:06pm Hlkmr-Agncwsdao-Dfjig syndrome July 16, 2024 1:06pm Anxiety July 27, 2024 10:11 am 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 27, 2024 10:11 am Former smoker, stopped smoking in past July 27, 2024 10:11am Hemorrhagic cyst of ovary July 27, 2024 10:11am History of marijuana use July 27, 2024 10:11am History of nicotine vaping July 27 10:11am History of recurrent miscarriages July 272024 10:11am Obesity affecting July 27 10:11am PCOS (polycystic ovarian syndrome) July 092024 10:11am July 27, 2024 10:11 am at early stage July 27, 2024 10:11am Spotting in early July 27 10:11am Supervision of high-risk July 092024 10:11am Vaginal discharge July 27, 2024 10:11 am Xbsei-Zccpojinr-Fnfif syndrome July 27, 2024 10:11am Asymptomatic bacteriuria during pregnanc y July 27, 2024 10:11am Vaginal bleeding affecting early pregnan cy July 27, 2024 10:11am Anxiety August 03, 2024 2:51p m Bicornuate uterus August 03, 2024 2:51p m Former smoker, stopped smoking in past August 03, 2024 2:51pm Hemorrhagic cyst of ovary August 03, 2024 2:51pm History of marijuana use August 03, 2024 2:51pm History of nicotine vaping August 03 2:51pm History of recurrent miscarriages August 032024 2:51pm Obesity affecting August 03 2:51pm PCOS (polycystic ovarian syndrome) July 092024 2:51pm August 03, 2024 2:51p m at early stage August 03, 2024 2:51pm Spotting in early August 03 2:51pm Supervision of high-risk July 092024 2:51pm Vaginal discharge August 03, 2024 2:51p m Jzstr-Opspbwvrt-Jttbb syndrome August 03, 2024 2:51pm Chief Complaint Admit Date EORDER July 08, 2024 10:45a m PNOB/Confirmation of July 16, 2024 1:06pm SPOTTING (STAT) July 19, 2024 11:21 am INT LAB ORDERS July 21, 2024 4:08p m vag bleed preg July 25, 2024 11:12 am NOB: LMP 05/29/24, JYOTHI 03/05/25July 10:11am 8wk ob *rescan per JV August 03, 2024 2:5 1pm bleeding, heartbeat check per KW August 1:57pm Reason for Visit Admit Date Anxiety July 16, 2024 1:06pm 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 16, 2024 1:06pm Former smoker, stopped smoking in past July 16, 2024 1:06pm Hemorrhagic cyst of ovary July 16, 2024 1:06pm History of marijuana use July 16, 2024 1 :06pm History of nicotine vaping July 16, 2024 1:06pm History of recurrent miscarriages July 1:06pm Obesity affecting July 16 1:06pm PCOS (polycystic ovarian syndrome) July 162024 1:06pm July 16, 2024 1:06pm at early stage July 16, 2024 1 :06pm Spotting in early July 16 1:06pm Supervision of high-risk July 162024 1:06pm Vaginal discharge July 16, 2024 1:06pm Tvqha-Fdwrlecpj-Qxvkl syndrome July 16, 2024 1:06pm Anxiety July 27, 2024 10:11 am 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 27, 2024 10:11 am Former smoker, stopped smoking in [place] [facility] past July 27, 2024 10:11am Hemorrhagic cyst of ovary July 27, 2024 10:11am History of marijuana use July 27, 2024 10:11am History of nicotine vaping July 27 10:11am History of recurrent miscarriages July 272024 10:11am Obesity affecting July 27 10:11am PCOS (polycystic ovarian syndrome) July 092024 10:11am July 27, 2024 10:11 am at early stage July 27, 2024 10:11am Spotting in early July 27 10:11am Supervision of high-risk July 092024 10:11am Vaginal discharge July 27, 2024 10:11 am Biwav-Gghzxotnj-Biuyd syndrome July 27, 2024 10:11am Asymptomatic bacteriuria during pregnanc y July 27, 2024 10:11am Vaginal bleeding affecting early pregnan cy July 27, 2024 10:11am Anxiety August 03, 2024 2:51p m Bicornuate uterus August 03, 2024 2:51p m Former smoker, stopped smoking in [place] [facility] past August 03, 2024 2:51pm Hemorrhagic cyst of ovary August 03, 2024 2:51pm History of marijuana use August 03, 2024 2:51pm History of nicotine vaping August 03 2:51pm History of recurrent miscarriages August 032024 2:51pm Obesity affecting August 03 2:51pm PCOS (polycystic ovarian syndrome) July 092024 2:51pm August 03, 2024 2:51p m at early stage August 03, 2024 2:51pm Spotting in early August 03 2:51pm Supervision of high-risk July 092024 2:51pm Vaginal discharge August 03, 2024 2:51p m Aflan-Hgenstbhe-Rmnpl syndrome August 03, 2024 2:51pm Anxiety August 09, 2024 1:57p m Bicornuate uterus August 09, 2024 1:57p m Former smoker, stopped smoking in [place] [facility] past August 09, 2024 1:57pm Hemorrhagic cyst of ovary August 09, 2024 1:57pm History of marijuana use August 09, 2024 1:57pm History of nicotine vaping August 09 1:57pm 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 1:57pm Obesity affecting August 09 1:57pm PCOS (polycystic ovarian syndrome) August 09, 2024 1:57pm August 09, 2024 1:57p m at early stage August 09, 2024 1:57pm Spotting in early August 09 1:57pm Supervision of high-risk August 09, 2024 1:57pm Vaginal discharge August 09, 2024 1:57p m Unrgm-Rgqenbyup-Bqxdw syndrome August 09, 2024 1:57pm Chief Complaint Admit Date EORDER July 08, 2024 10:45a m PNOB/Confirmation of July 16, 2024 1:06pm SPOTTING (STAT) July 19, 2024 11:21 am INT LAB ORDERS July 21, 2024 4:08p m vag bleed preg July 25, 2024 11:12 am NOB: LMP 05/29/24, JYOTHI 03/05/25July 10:11am 8wk ob *rescan per JV August 03, 2024 2:5 1pm bleeding, heartbeat check per KW August 1:57pm 9wk ob per JV August 13, 2024 3:43p m Reason for Visit Admit Date Anxiety July 16, 2024 1:06pm 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 16, 2024 1:06pm Former smoker, stopped smoking in past July 16, 2024 1:06pm Hemorrhagic cyst of ovary July 16, 2024 1:06pm History of marijuana use July 16, 2024 1 :06pm History of nicotine vaping July 16, 2024 1:06pm History of recurrent miscarriages July 1:06pm Obesity affecting July 16 1:06pm PCOS (polycystic ovarian syndrome) July 162024 1:06pm July 16, 2024 1:06pm at early stage July 16, 2024 1 :06pm Spotting in early July 16 1:06pm Supervision of high-risk July 162024 1:06pm Vaginal discharge July 16, 2024 1:06pm Gmcgx-Banyrjihh-Szmls syndrome July 16, 2024 1:06pm Anxiety July 27, 2024 10:11 am 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 27, 2024 10:11 am Former smoker, stopped smoking in distan t past July 27, 2024 10:11am Hemorrhagic cyst of ovary July 27, 2024 10:11am History of marijuana use July 27, 2024 10:11am History of nicotine vaping July 27 10:11am History of recurrent miscarriages July 272024 10:11am Obesity affecting July 27 10:11am PCOS (polycystic ovarian syndrome) July 092024 10:11am July 27, 2024 10:11 am at early stage July 27, 2024 10:11am Spotting in early July 27 10:11am Supervision of high-risk July 092024 10:11am Vaginal discharge July 27, 2024 10:11 am Jcdps-Itzqqnent-Ctuzy syndrome July 27, 2024 10:11am Asymptomatic bacteriuria during pregnanc y July 27, 2024 10:11am Vaginal bleeding affecting early pregnan cy July 27, 2024 10:11am Anxiety August 03, 2024 2:51p m Bicornuate uterus August 03, 2024 2:51p m Former smoker, stopped smoking in [employer] past August 03, 2024 2:51pm Hemorrhagic cyst of ovary August 03, 2024 2:51pm History of marijuana use August 03, 2024 2:51pm History of nicotine vaping August 03 2:51pm History of recurrent miscarriages August 032024 2:51pm Obesity affecting August 03 2:51pm PCOS (polycystic ovarian syndrome) July 092024 2:51pm August 03, 2024 2:51p m at early stage August 03, 2024 2:51pm Spotting in early August 03 2:51pm Supervision of high-risk July 092024 2:51pm Vaginal discharge August 03, 2024 2:51p m Suuvk-Qtjdpyfkk-Phfei syndrome August 03, 2024 2:51pm Anxiety August 09, 2024 1:57p m Bicornuate uterus August 09, 2024 1:57p m Former smoker, stopped smoking in [employer] past August 09, 2024 1:57pm Hemorrhagic cyst of ovary August 09, 2024 1:57pm History of marijuana use August 09, 2024 1:57pm History of nicotine vaping August 09 1:57pm 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 1:57pm Obesity affecting August 09 1:57pm PCOS (polycystic ovarian syndrome) August 09, 2024 1:57pm August 09, 2024 1:57p m at early stage August 09, 2024 1:57pm Spotting in early August 09 1:57pm Supervision of high-risk August 09, 2024 1:57pm Vaginal discharge August 09, 2024 1:57p m Kcbxa-Tovgrbywn-Odpek syndrome August 09, 2024 1:57pm Anxiety August 13, 2024 3:43p m Bicornuate uterus August 13, 2024 3:43p m Former smoker, stopped smoking in distan t past August 13, 2024 3:43pm Hemorrhagic cyst of ovary August 13, 2024 3:43pm History of marijuana use August 13, 2024 3:43pm History of nicotine vaping August 13 3:43pm History of recurrent miscarriages August 132024 3:43pm Obesity affecting August 13 3:43pm PCOS (polycystic ovarian syndrome) August 13, 2024 3:43pm August 13, 2024 3:43p m at early stage August 13, 2024 3:43pm Spotting in early August 13 3:43pm Supervision of high-risk August 13, 2024 3:43pm Vaginal discharge August 13, 2024 3:43p m Mcddg-Tehswntad-Jjqod syndrome August 13, 2024 3:43pm Chief Complaint Admit Date EORDER July 08, 2024 10:45a m PNOB/Confirmation of July 16, 2024 1:06pm SPOTTING (STAT) July 19, 2024 11:21 am INT LAB ORDERS July 21, 2024 4:08p m vag bleed preg July 25, 2024 11:12 am NOB: LMP 05/29/24, JYOTHI 03/05/25July 10:11am 8wk ob *rescan per JV August 03, 2024 2:5 1pm bleeding, heartbeat check per KW August 1:57pm 9wk ob per JV August 13, 2024 3:43p m 10wk ob per JV August 16, 2024 3:41p m Reason for Visit Admit Date Anxiety July 16, 2024 1:06pm 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 16, 2024 1:06pm Former smoker, stopped smoking in past July 16, 2024 1:06pm Hemorrhagic cyst of ovary July 16, 2024 1:06pm History of marijuana use July 16, 2024 1 :06pm History of nicotine vaping July 16, 2024 1:06pm History of recurrent miscarriages July 1:06pm Obesity affecting July 16 1:06pm PCOS (polycystic ovarian syndrome) July 162024 1:06pm July 16, 2024 1:06pm at early stage July 16, 2024 1 :06pm Spotting in early July 16 1:06pm Supervision of high-risk July 162024 1:06pm Vaginal discharge July 16, 2024 1:06pm Ryrpu-Gbagwdtfe-Iizmm syndrome July 16, 2024 1:06pm Anxiety July 27, 2024 10:11 am 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 27, 2024 10:11 am [place] smoker, [place] [facility], 20[place] 10:11am Hemorrhagic cyst of ovary July 27, 2024 10:11am History of marijuana use July 27, 2024 10:11am History of nicotine vaping July 27 10:11am History of recurrent miscarriages July 272024 10:11am Obesity affecting July 27 10:11am PCOS (polycystic ovarian syndrome) July 092024 10:11am July 27, 2024 10:11 am at early stage July 27, 2024 10:11am Spotting in early July 27 10:11am Supervision of high-risk July 092024 10:11am Vaginal discharge July 27, 2024 10:11 am Qhqdw-Jjwgpgrnp-Jjyxz syndrome July 27, 2024 10:11am Asymptomatic bacteriuria during pregnanc y July 27, 2024 10:11am Vaginal bleeding affecting early pregnan cy July 27, 2024 10:11am Anxiety August 03, 2024 2:51p m Bicornuate uterus August 03, 2024 2:51p m Former smoker, stopped smoking [place] [facility] past August 03, 2024 2:51pm Hemorrhagic cyst of ovary August 03, 2024 2:51pm History of marijuana use August 03, 2024 2:51pm History of nicotine vaping August 03 2:51pm History of recurrent miscarriages August 032024 2:51pm Obesity affecting August 03 2:51pm PCOS (polycystic ovarian syndrome) July 092024 2:51pm August 03, 2024 2:51p m at early stage August 03, 2024 2:51pm Spotting in early August 03 2:51pm Supervision of high-risk July 092024 2:51pm Vaginal discharge August 03, 2024 2:51p m Djttu-Jweydrjgu-Gqkqw syndrome August 03, 2024 2:51pm Anxiety August 09, 2024 1:57p m Bicornuate uterus August 09, 2024 1:57p m Former smoker, stopped smoking [place] [facility] [place] past August 09, 2024 1:57pm Hemorrhagic cyst of ovary August 09, 2024 1:57pm History of marijuana use August 09, 2024 1:57pm History of nicotine vaping August 09 1:57pm 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 1:57pm Obesity affecting August 09 1:57pm PCOS (polycystic ovarian syndrome) August 09, 2024 1:57pm August 09, 2024 1:57p m at early stage August 09, 2024 1:57pm Spotting in early August 09 1:57pm Supervision of high-risk August 09, 2024 1:57pm Vaginal discharge August 09, 2024 1:57p m Fpbwb-Mcmjzyswa-Vtoox syndrome August 09, 2024 1:57pm Anxiety August 13, 2024 3:43p m Bicornuate uterus August 13, 2024 3:43p m Former smoker, stopped smoking [place] [facility] [place] past August 13, 2024 3:43pm Hemorrhagic cyst of ovary August 13, 2024 3:43pm History of marijuana use August 13, 2024 3:43pm History of nicotine vaping August 13 3:43pm History of recurrent miscarriages August 132024 3:43pm Obesity affecting August 13 3:43pm PCOS (polycystic ovarian syndrome) August 13, 2024 3:43pm August 13, 2024 3:43p m at early stage August 13, 2024 3:43pm Spotting in early August 13 3:43pm Supervision of high-risk August 13, 2024 3:43pm Vaginal discharge August 13, 2024 3:43p m Jthhd-Odszaramf-Gjbpb syndrome August 13, 2024 3:43pm Anxiety August 16, 2024 3:41p m Bicornuate uterus August 16, 2024 3:41p m Former smoker, stopped smoking in dist[facility] past August 16, 2024 3:41pm Hemorrhagic cyst of ovary August 16, 2024 3:41pm History of marijuana use August 16, 2024 3:41pm History of nicotine vaping August 16 3:41pm History of recurrent miscarriages August 162024 3:41pm Obesity affecting August 16 3:41pm PCOS (polycystic ovarian syndrome) August 16, 2024 3:41pm August 16, 2024 3:41p m at early stage August 16, 2024 3:41pm Spotting in early August 16 3:41pm Supervision of high-risk August 16, 2024 3:41pm Vaginal discharge August 16, 2024 3:41p m Yljnt-Rouwhmgaq-Ehnje syndrome August 16, 2024 3:41pm Chief Complaint Admit Date EORDER July 08, 2024 10:45a m PNOB/Confirmation of July 16, 2024 1:06pm SPOTTING (STAT) July 19, 2024 11:21 am INT LAB ORDERS July 21, 2024 4:08p m vag bleed preg July 25, 2024 11:12 am NOB: LMP 05/29/24, JYOTHI 03/05/25July 10:11am 8wk ob *rescan per JV August 03, 2024 2:5 1pm bleeding, heartbeat check per KW August 1:57pm 9wk ob per JV August 13, 2024 3:43p m 10wk ob per JV August 16, 2024 3:41p m 11wk ob per JV August 27, 2024 1:59 pm Reason for Visit Admit Date Anxiety July 16, 2024 1:06pm 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 16, 2024 1:06pm Former smoker, stopped smoking in past July 16, 2024 1:06pm Hemorrhagic cyst of ovary July 16, 2024 1:06pm History of marijuana use July 16, 2024 1 :06pm History of nicotine vaping July 16, 2024 1:06pm History of recurrent miscarriages July 1:06pm Obesity affecting July 16 1:06pm PCOS (polycystic ovarian syndrome) July 162024 1:06pm July 16, 2024 1:06pm at early stage July 16, 2024 1 :06pm Spotting in early July 16 1:06pm Supervision of high-risk July 162024 1:06pm Vaginal discharge July 16, 2024 1:06pm Tjlfi-Qimmflouf-Hdyuk syndrome July 16, 2024 1:06pm Anxiety July 27, 2024 10:11 am 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 27, 2024 10:11 am Former smoker, stopped smoking in past July 27, 2024 10:11am Hemorrhagic cyst of ovary July 27, 2024 10:11am History of marijuana use July 27, 2024 10:11am History of nicotine vaping July 27 10:11am History of recurrent miscarriages July 272024 10:11am Obesity affecting July 27 10:11am PCOS (polycystic ovarian syndrome) July 092024 10:11am July 27, 2024 10:11 am at early stage July 27, 2024 10:11am Spotting in early July 27 10:11am Supervision of high-risk July 092024 10:11am Vaginal discharge July 27, 2024 10:11 am Ixgij-Frcnyznie-Fbxpp syndrome July 27, 2024 10:11am Asymptomatic bacteriuria during pregnanc y July 27, 2024 10:11am Vaginal bleeding affecting early pregnan cy July 27, 2024 10:11am Anxiety August 03, 2024 2:51p m Bicornuate uterus August 03, 2024 2:51p m Former smoker, stopped smoking in [facility] past August 03, 2024 2:51pm Hemorrhagic cyst of ovary August 03, 2024 2:51pm History of marijuana use August 03, 2024 2:51pm History of nicotine vaping August 03 2:51pm History of recurrent miscarriages August 032024 2:51pm Obesity affecting August 03 2:51pm PCOS (polycystic ovarian syndrome) July 092024 2:51pm August 03, 2024 2:51p m at early stage August 03, 2024 2:51pm Spotting in early August 03 2:51pm Supervision of high-risk July 092024 2:51pm Vaginal discharge August 03, 2024 2:51p m Mfckp-Csckqnias-Whbru syndrome August 03, 2024 2:51pm Anxiety August 09, 2024 1:57p m Bicornuate uterus August 09, 2024 1:57p m Former smoker, stopped smoking in [place] [employer] [facility] past August 09, 2024 1:57pm Hemorrhagic cyst of ovary August 09, 2024 1:57pm History of marijuana use August 09, 2024 1:57pm History of nicotine vaping August 09 1:57pm 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 1:57pm Obesity affecting August 09 1:57pm PCOS (polycystic ovarian syndrome) August 09, 2024 1:57pm August 09, 2024 1:57p m at early stage August 09, 2024 1:57pm Spotting in early August 09 1:57pm Supervision of high-risk August 09, 2024 1:57pm Vaginal discharge August 09, 2024 1:57p m Dlfpa-Ieyhqwnid-Gejej syndrome August 09, 2024 1:57pm Anxiety August 13, 2024 3:43p m Bicornuate uterus August 13, 2024 3:43p m Former smoker, stopped smoking in dist[facility] past August 13, 2024 3:43pm Hemorrhagic cyst of ovary August 13, 2024 3:43pm History of marijuana use August 13, 2024 3:43pm History of nicotine vaping August 13 3:43pm History of recurrent miscarriages August 132024 3:43pm Obesity affecting August 13 3:43pm PCOS (polycystic ovarian syndrome) August 13, 2024 3:43pm August 13, 2024 3:43p m at early stage August 13, 2024 3:43pm Spotting in early August 13 3:43pm Supervision of high-risk August 13, 2024 3:43pm Vaginal discharge August 13, 2024 3:43p m Kjhee-Vfgzvlvfv-Ysxiu syndrome August 13, 2024 3:43pm Anxiety August 16, 2024 3:41p m Bicornuate uterus August 16, 2024 3:41p m Former smoker, stopped smoking [place] [facility] [facility] past August 16, 2024 3:41pm Hemorrhagic cyst of ovary August 16, 2024 3:41pm History of marijuana use August 16, 2024 3:41pm History of nicotine vaping August 16 3:41pm History of recurrent miscarriages August 162024 3:41pm Obesity affecting August 16 3:41pm PCOS (polycystic ovarian syndrome) August 16, 2024 3:41pm August 16, 2024 3:41p m at early stage August 16, 2024 3:41pm Spotting in early August 16 3:41pm Supervision of high-risk August 16, 2024 3:41pm Vaginal discharge August 16, 2024 3:41p m Pjtgw-Coeviwjmk-Dsjig syndrome August 16, 2024 3:41pm Anxiety August 27, 2024 1:59 pm Bicornuate uterus August 27, 2024 1:59 pm Former smoker, stopped smoking [place] [employer] [facility] past August 27, 2024 1:59pm Hemorrhagic cyst of ovary August 27 1:59pm History of marijuana use August 27, 2024 1:59pm History of nicotine vaping August 27 1:59pm 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 1:59pm Obesity affecting August 27 025 1:59pm PCOS (polycystic ovarian syndrome) August 27, 2024 1:59pm August 27, 2024 1:59 pm at early stage August 27, 2024 1:59pm Spotting in early Vian[place] 20th, 2 025 1:59pm Supervision of high-risk August 27, 2024 1:59pm Vaginal discharge August 27, 2024 1:59 pm Utfxa-Dgbpgmzdf-Iuohb syndrome August 1:59pm Additional Source Comments INFORMATION SOURCE (unrecogn ized section and content) DATE CREATED AUTHOR 09/02/2020 [facility] DATE CREATED AUTHOR AUTHOR'S ORGANIZ ATION 07/26/2021 [facility] DATE CREATED AUTHOR AUTHOR'S ORGANIZ ATION 09/12/2021 [facility] DATE CREATED AUTHOR AUTHOR'S ORGANIZ ATION 09/17/2021 [facility] DATE CREATED AUTHOR AUTHOR'S ORGANIZ ATION 02/09/2022 [facility] DATE CREATED AUTHOR AUTHOR'S ORGANIZ ATION 03/01/2022 [facility] DATE CREATED AUTHOR AUTHOR'S ORGANIZ ATION 08/19/2022 [facility] DATE CREATED AUTHOR AUTHOR'S ORGANIZ ATION 04/01/2023 [facility] ([place]) DATE CREATED AUTHOR AUTHOR'S ORGANIZ ATION 07/17/2024 [facility] DATE CREATED AUTHOR AUTHOR'S ORGANIZ ATION 08/17/2024 [facility] Source Comments (unrecognize d section and content) In the event this informatio n is protected by the Federal Confidentiality of Alcohol and Drug Abuse Patient Records regulations: The Federal rules restrict any use of the information to criminally investigate or prosecute any alcohol or drug abuse patient.[facility] the event this information is protected by the Federal Confidentiality of Alcohol and Drug Abuse Patient Records regulations: The Federal rules restrict any use of the information to criminally investigate or prosecute any alcohol or drug abuse patient.[facility] the event this information is protected by the Federal Confidentiality of Alcohol and Drug Abuse Patient Records regulations: The Federal rules restrict any use of the information to criminally investigate or prosecute any alcohol or drug abuse patient.[facility] the event this information is protected by the Federal Confidentiality of Alcohol and Drug Abuse Patient Records regulations: The Federal rules restrict any use of the information to criminally investigate or prosecute any alcohol or drug abuse patient.[facility] the event this information is protected by the Federal Confidentiality of Alcohol and Drug Abuse Patient Records regulations: The Federal rules restrict any use of the information to criminally investigate or prosecute any alcohol or drug abuse patient.[facility] the event this information is protected by the Federal Confidentiality of Alcohol and Drug Abuse Patient Records regulations: The Federal rules restrict any use of the information to criminally investigate or prosecute any alcohol or drug abuse patient.[facility] Hospital[facility] the event this information is protected by the Federal Confidentiality of Alcohol and Drug Abuse Patient Records regulations: The Federal rules restrict any use of the information to criminally investigate or prosecute any alcohol or drug abuse patient.[facility] Care Teams (unrecognized sec tion and content) Mission Analyst Relationship Specialty Start Date End Date Marco Mojica MD [address] [place], [place] [phone] PCP - General Family Practice 06/22/20 Mission Analyst Relationship Specialty Start Date End Date Physician, No Pcp PCP - General 07/19/21 Mission Analyst Relationship Specialty Start Date End Date Marco Mojica MD [address] [place] [phone] PCP - General Family Practice 06/22/20 Mission Analyst Relationship Specialty Start Date End Date Physician, No Pcp PCP - General 07/19/21 Mission Analyst Relationship Specialty Start Date End Date Marco Mojica MD [address] [place] [phone] PCP - General Family Medicine 06/22/20 Mission Analyst Relationship Specialty Start Date End Date Marco Mojica MD [address] [place] [phone] PCP - General Family Medicine 06/22/20 Mission Analyst Relationship Specialty Start Date End Date Marco Mojica MD [address] [place] [address] [place] [phone] PCP - General Family Medicine 06/22/20 Mission Analyst Relationship Specialty Start Date End Date Marco Mojica MD [address] [place] [phone] PCP - General Family Medicine 06/22/20 Team Status: Inactive Member Role Status Dates ERROL RuanoC Attending Provider Active Team Status: Active Member Role Status Dates No Primary Care Physician Primary Care Provider Active Team Status: Inactive Member Role Status Dates No Primary Care Physician Primary Care Provider Active Start: July 06, 2024 End: July 06, 2024 Aaliyah Borrego CNM Attending Provider Active S tart: July 06, 2024 End: July 06, 2024 Aaliyah Borrego CNM Referring Provider Active S tart: July 06, 2024 End: July 06, 2024 Team Status: Inactive Member Role Status Dates No Primary Care Physician Primary Care Provider Active Start: July 08, 2024 End: July 08, 2024 Aaliyah Borrego CNM Attending Provider Active S tart: July 08, 2024 End: July 08, 2024 Aaliyah Borrego CNM Referring Provider Active S tart: July 08, 2024 End: July 08, 2024 Team Status: Inactive Member Role Status Dates No Primary Care Physician Primary Care Provider Active Start: July 16, 2024 End: July 16, 2024 No Primary Care Physician Referring Provider Active Start: July 16, 2024 End: July 16, 2024 Dr. Diana Leigh DO Attending Provider Activ e Start: July 16, 2024 End: July 16, 2024 Team Status: Inactive Member Role Status Dates No Primary Care Physician Primary Care Provider Active Start: July 19, 2024 End: July 19, 2024 Aaliyah Borrego CNM Attending Provider Active S tart: July 19, 2024 End: July 19, 2024 Aaliyah Borrego CNM Referring Provider Active S tart: July 19, 2024 End: July 19, 2024 Team Status: Active Member Role Status Dates No Primary Care Physician Primary Care Provider Active Start: July 21, 2024 Dr. Diana Vande Velde , DO Attending Provider Activ e Start: July 21, 2024 Dr. Diana Leigh , DO Referring Provider Activ e Start: July 21, 2024 Team Status: Inactive Member Role Status Dates No Primary Care Physician Primary Care Provider Active Start: July 25, 2024 End: July 25, 2024 Dr. Margarito Huston , DO Referring Provider Active Start: July 25, 2024 End: July 25, 2024 Dr. Margarito Huston , DO Emergency Provider Active Start: July 25, 2024 End: July 25, 2024 Team Status: Inactive Member Role Status Dates No Primary Care Physician Primary Care Provider Active Start: July 21, 2024 End: July 21, 2024 Dr. Diana Leigh , DO Attending Provider Activ e Start: July 21, 2024 End: July 21, 2024 Dr. Diana Leigh , DO Referring Provider Activ e Start: July 21, 2024 End: July 21, 2024 Team Status: Inactive Member Role Status Dates No Primary Care Physician Primary Care Provider Active Start: July 27, 2024 End: July 27, 2024 No Primary Care Physician Referring Provider Active Start: July 27, 2024 End: July 27, 2024 Dr. Diana Leigh , DO Attending Provider Activ e Start: July 27, 2024 End: July 27, 2024 Team Status: Inactive Member Role Status Dates No Primary Care Physician Primary Care Provider Active Start: July 25, 2024 End: July 25, 2024 Dr. Margarito Huston , DO Attending Provider Active Start: July 25, 2024 End: July 25, 2024 Dr. Margartio Huston , DO Referring Provider Active Start: July 25, 2024 End: July 25, 2024 Dr. Margarito Huston , DO Emergency Provider Active Start: July 25, 2024 End: July 25, 2024 Team Status: Inactive Member Role Status Dates No Primary Care Physician Primary Care Provider Active Start: July 27, 2024 End: July 27, 2024 Dr. Diana Leigh , DO Attending Provider Activ e Start: July 27, 2024 End: July 27, 2024 Dr. Diana Leigh , DO Referring Provider Activ e Start: July 27, 2024 End: July 27, 2024 Team Status: Inactive Member Role Status Dates No Primary Care Physician Primary Care Provider Active Start: August 03, 2024 End: August 03, 2024 No Primary Care Physician Referring Provider Active Start: August 03, 2024 End: August 03, 2024 Aaliyah Borrego CNM Attending Provider Active S tart: August 03, 2024 End: August 03, 2024 Team Status: Inactive Member Role Status Dates No Primary Care Physician Primary Care Provider Active Start: August 03, 2024 End: August 03, 2024 Dr. Diana Leigh , DO Attending Provider Activ e Start: August 03, 2024 End: August 03, 2024 Dr. Diana Leigh , DO Referring Provider Activ e Start: August 03, 2024 End: August 03, 2024 Team Status: Inactive Member Role Status Dates No Primary Care Physician Primary Care Provider Active Start: August 09, 2024 End: August 09, 2024 No Primary Care Physician Referring Provider Active Start: August 09, 2024 End: August 09, 2024 Aaliyah Borrego CNM Attending Provider Active S tart: August 09, 2024 End: August 09, 2024 Team Status: Inactive Member Role Status Dates No Primary Care Physician Primary Care Provider Active Start: August 13, 2024 End: August 13, 2024 No Primary Care Physician Referring Provider Active Start: August 13, 2024 End: August 13, 2024 Felicia Kaur CNM Attending Provider Active Start: August 13, 2024 End: August 13, 2024 Team Status: Inactive Member Role Status Dates No Primary Care Physician Primary Care Provider Active Start: August 16, 2024 End: August 16, 2024 No Primary Care Physician Referring Provider Active Start: August 16, 2024 End: August 16, 2024 Aaliyah Borrego CNM Attending Provider Active S tart: August 16, 2024 End: August 16, 2024 Team Status: Active Member Role Status Dates No Primary Care Physician Primary Care Provider Active Start: August 27, 2024 Dr. Diana Leigh , DO Attending Provider Activ e Start: August 27, 2024 Dr. Diana Leigh , DO Referring Provider Activ e Start: August 27, 2024 Team Status: Inactive Member Role Status Dates No Primary Care Physician Primary Care Provider Active Start: August 27, 2024 End: August 27, 2024 No Primary Care Physician Referring Provider Active Start: August 27, 2024 End: August 27, 2024 Dr. Diana Leigh DO Attending Provider Activ e Start: August 27, 2024 End: August 27, 2024 Reason for Visit (unrecogniz ed section and content) Reason Comments Vaginal Bleeding - Abdominal Pain cramping Reason Comments UTI Discharge present, s genevieve smelling, burning with urination. Spouse was unfaithful, no symptoms until now. Reason Comments Results Reason Comments Illness 2 weeks of yellow mu cus, congestion. Care Team (unrecognized sect ion and content) Care Team Personnel Name: ADAM GORDON MD Position: Physician Member Role: Primary Care Physician Address: Address: [address] [place] [address] Care Team Related Persons Name: NATALIE PORTILLO Name: NATALIE PORTILLO Name: NATALIE PORTILLO Goals (unrecognized section and content) Goals may be documented in a n alternate section FOR RECORDS PERTAINING TO PATIENTS WHO ARE [...] BE BASED ON THE PRIMARY CLINICAL RECORDS. [facility] authorGEN [facility]. provides no warranty or guarantee of the accuracy or completeness of information in this document.
== END | disposition home or self-care (01) ==
PROVIDERS: Referring Provider Obstetrics & Gynecology; Visit Provider Obstetrics & Gynecology
DX: O09.90 Supervision of high risk pregnancy, unspecified, unspecified trimester (principal); O99.210 Obesity complicating pregnancy, unspecified trimester; O99.280 Endocrine, nutritional and metabolic diseases complicating pregnancy, unspecified trimester; E28.2 Polycystic ovarian syndrome; Z3A.00 Weeks of gestation of pregnancy not specified
CPT/HCPCS: 36415; 83036; 85025; 86703; 86762; 86780; 86803; 86850; 86900; 86901; 87340

== ENCOUNTER → 2024-09-01 | Outpatient (CLI) | payer OTHER, SELFPAY | END | disposition home or self-care (01) | LOC: LABSPEC 16:16 | PROVIDERS: Visit Provider Obstetrics & Gynecology | DX: O26.899 Other specified pregnancy related conditions, unspecified trimester (principal); R30.0 Dysuria; Z3A.00 Weeks of gestation of pregnancy not specified | CPT/HCPCS: 87086; 87088 ==

== ENCOUNTER 2024-09-29 21:44 | Emergency (ER) | payer OTHER, SELFPAY ==
[2024-09-29 21:46] VITALS: BP 142/88; PULSE 110; RESP 16; TEMP 36.6; O2SAT 98; BMI 36.8
--- NOTE | 2024-09-29 22:12 | EX.ED.DYSGE1 ---
HPI History of Present Illness Chief Complaint: [facility] Medical History Recurrent loss Trichomonal vaginitis Seasonal allergies Shingles Cyst of spleen Home Medications ?Medication ?Instructions ?Recorded ?Last Taken ?Type progesterone micronized 200 mg 400 mg (2 x 200 mg) vaginal ONCE 07/06/24 Unknown Rx capsule (Prometrium) #60 caps multivit-min no.71-iron fum 28 cap PO 07/16/24 09/29/24 History mg-folate no.1 1 mg-dha 300 mg capsule (PNV-Cloverdale) metoclopramide HCl 5 mg tablet 5 mg PO Q8H PRN nausea and 09/29/24 Unknown Rx (Reglan) vomiting #21 tabs Allergy/AdvReac Type Severity Reaction Status Date / Time Iodinated Contrast Media Allergy Mild Hives Verified 09/29/24 22:03 Family History Grandmother Throat cancer, Onset Age: 68 Maternal Grandfather Lung cancer Maternal, smoker-onset age unknown Father Diabetes Hypertension Myocardial infarction Surgical History [place] teeth removed Social History adopted: No household members: significant other housing: house current occupational status: employed 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 Quit Vaping 07/06/24 quit status: quit date established alcohol intake: current alcohol intake frequency: holidays/special occasions only details: socially - but not while substance use type: does not use, former substance user Date of last use: 4 years ago and marijuana well-balanced diet: daily or most days caffeine: Yes Type: carbonated beverages Number of servings: 1 eating out: rarely or never during the past year weight has: increased > 10 lbs what type of physical activity do you participate in: none whitney/zoroastrianism: Mandaeism seatbelt use: always do you feel safe at home: Yes additional social history: Significant other - Franck EXAM Physical Exam Const Vital Signs: 09/29/24 21:46 09/29/24 23:54 Temperature 98 F 98 F Temperature Source Oral Pulse Rate 110 H 96 Respiratory Rate 16 23 H Blood Pressure 142/88 H 120/85 H Blood Pressure Mean 106 96 Pulse Ox 98 99 Oxygen Delivery Method Room Air [facility] Narrative Medical decision making narrative: HISTORY OF PRESENT ILLNESS: Chief complaint: Headache 29-year-old female history of migraines presents with headache. Notes began This afternoon at 3 PM approximately 7 hours prior to arrival. Notes a pulsating sensation/visual disturbance but intermittent and has since resolved. States she has had migraines in the past with ocular phenomena. Notes this migraine is consistent with those however the ocular phenomena or different which concerned her. She also notes she is in her early second trimester of but less than 20-weeks OB (G4, P0) and that she called her OB and they were concerned that she may have gestational hypertension so wanted her evaluated. Denies recent illness. Denies neck stiffness or fever. No sick contacts. Patient denies active cancer, being bedridden for greater than 3 days, denies unilateral leg swelling, denies any varicose veins, denies any calf tenderness, denies tenderness along deep venous system. Denies major surgery within 12 weeks, recent paralysis, previous DVT. Patient denies sudden onset or thunderclap headache, denies maximal intensity within 1 minute, vomiting, neck pain, stiffness, changes in vision, fever, history malignancy, syncope, or seizures associated with headache. REVIEW OF SYSTEMS: Pertinent positives: Headache Pertinent negatives: As per HPI PHYSICAL EXAM: Nursing triage notes reviewed, Vital signs reviewed Constitutional: please see mdm HENT: MMM Eyes: Pupils equal round and reactive to light, Extraocular muscles intact Neck: No stridor, no JVD, full neck ROM Lungs: Clear to auscultation, No wheezing or rales. No increased work of breathing, no conversational dyspnea, no accessory muscle use, no nasal flaring. No respiratory distress noted Heart: Regular rate and rhythm, No murmurs, No rubs and No gallops, 2+ distal pulses (radial, femoral, posterior tibial) in all extremities Abdomen: Soft, there is no tenderness, rigidity, rebound or guarding, no obvious peritoneal signs, no palpable pulsatile abdominal masses, no auscultated abdominal bruit : No CVAT Extremities: No edema Neuro: Alert and oriented x3, neuro exam at baseline, cranial nerves II through XII are intact. No pain with extraocular muscle movement. There is negative test of skew. 5 of 5 strength in upper and lower extremities in flexion extension. Intact sensation to light touch in upper and lower extremity dermatomes. No truncal or extremity ataxia. No dysdiadochokinesia. Normal gait. 2+ reflexes in upper and lower extremities. No meningeal signs. Negative Babinski. NIH of 0. Skin: No rash or lesions noted MEDICAL DECISION MAKING: Chief Complaint: please see HPI External records reviewed: Reviewed prior imaging, allergies and problem list Factors affecting care: As per HPI Social determinants of health: none History obtained from others: none Consults: none [facility] Narrative: The patient was initially hemodynamically stable, afebrile and nontoxic-appearing. Exam without focal neurologic deficits I considered the following differential diagnosis: Primary headache, secondary headache (subarachnoid hemorrhage, ICH, cerebral vein thrombosis), meningitis, carotid artery dissection While I considered secondary cause of headache the patient's history and physical exam not consistent with these causes. On my assessment patient blood pressure was 131/86 this was not consistent with preeclampsia or gestational hypertension. I opted for symptomatic control with IV fluids, IV Reglan and Tylenol. Upon reassessment at approximately 2330 the patient looks great and is in no significant objective discomfort after Reglan and Tylenol. The patient's headache is non-specific. Exam is unremarkable. The patient is in no distress and the patient?s neurological exam is non-focal, neck is supple and without meningismus. The headache is not consistent with meningitis or infection, nor is it consistent with intracranial bleed (SAH etc.), carotid dissection, cerebral vein thrombosis nor mass by history and examination. Medication and outpatient follow-up was instructed. The patient was instructed to return as needed or if symptoms changed or worsened, fever developed or inability to tolerate fluids. The patient agreed with plan. Upon reevaluation patient blood pressure improved to 120/89. She felt better. Repeat neurologic exam remained intact. The patient is appropriate discharge home with oral Reglan and prompt PCP and OB follow-up. The patient and/or family, caregivers express understanding. The patient and/or family, caregivers agrees with the plan. Shared decision making: I will have a discussion with the patient and or visitors regarding risk/benefits of further testing or admission. They will be made aware of of the risk/benefits inherent in this decision they will be given the opportunity to voice understanding. Total critical care time today provided was at least 0 minutes. This excludes separately billable procedures. Critical care time (if documented) is secondary to the patient having high probability of clinically significant/life threatening deterioration in the patient's condition which required my urgent intervention. Impression: 1. Acute headache 2. Ocular migraine 3. Second trimester Dispo: Discharge home This note was generated with [employer] dictation software. It may contain incorrect words, spelling, and punctuation that were not noted in review of the chart prior to signing. Discharge Plan Triage Chief Complaint: Headache ED Provider: Spenser Valero Dx/Rx/DC Orders Clinical Impression: Headache Instructions: ED, Migraine (Classical) Prescriptions: New metoclopramide HCl [Reglan] 5 mg tablet 5 mg PO Q8H PRN (Reason: nausea and vomiting) Qty: 21 0RF No Action PNV-Cloverdale 28-1-300 mg capsule PO progesterone micronized [Prometrium] 200 mg capsule 400 mg vaginal ONCE Qty: 60 4RF Rx Instructions: Vaginal nightly until 16 weeks Primary Care Provider: Care Physician,No Primary Referrals: Your OBGYN [Other] Eddie Palacios MD [Non-Staff -Ordering Privileges] - Activity Restrictions/Additional Instructions: Thank you for trusting us with your care today! Your history and physical exam are reassuring. You are likely suffering from migraine/ocular migraine. Your exam was not consistent with any life-threatening headache condition. Please take Tylenol (2 pills, 650 mg), every 6 hours as needed for pain and fever control. Please take Reglan as needed for headache and nausea control. Please return to the emergency department if your symptoms change or worsen. Specifically develop loss of vision, slurred speech, facial drooping, loss of movement or sensation in your extremities. Please follow with your SPIRITUAL COUNSELOR for further outpatient evaluation and management. I have also given you information regarding local neurologist to her headache experts. Please follow with the neurologist if your headaches continue to increase in severity/duration or if you would like additional treatment options in addition to prescribed Reglan. Print Language: Uzbek Disposition Disposition: Home, Self Care
--- OUTSIDE RECORDS SUMMARY | 2024-09-29 22:14 | XMS RPT_ITS | CCD ---
Author Organization [facility] Care Team Providers Care Flame Cutting Supervisor Name Role Phone GALINA WALLACE, DR LARA Primary Care Physician Marco Mojica MD Primary Care Provider Physician, No Pcp Primary Care Provider Unavaila GABRIELLA Andino Attending Unavailable PHYSICIAN, NO PCP Primary Care Unavailable PHYSICIAN, NO PCP Primary Care Unavailable NONE, NONE Primary Care Unavailable GRULLON DO, FOSTER K Admitting Unavailable GRULLON DO, FOSTER K Attending Unavailable TOM [phone], NASEEM Zapata Consulting U hina AGUERO SWEATBAND PERFORATOR, SHONA Consulting Unavailable NONE, NONE Consulting Unavailable NONE, NONE Primary Care Unavailable YOANA IYER MD Admitting Unavailable YOANA IYER MD Attending Unavailable CORINA REYES, YA PENNINGTON Consulting Unavaila ble AHDOOT [phone], OSBALDO Consulting Sarah vailable KACIE [phone], JOHANNE Alvarez Consulting Unavai lable NONE, NONE Consulting Unavailable Marco Mojica MD Primary Care Provider [phone] MARCO MOJICA Primary Care Unavailable EMMANUEL MARTELL Attending UnavailADAM Cohn MD Primary Care Physician [phone] CATY WALLACE~[id number], CATY BONILLA V Admitting Unavailable NONE, NONE Consulting Unavailable NONE, NONE Primary Care Unavailable CATY WALLACE~[phone], CATY BONILLA V Attending Unavailable NONE, NONE Consulting Unavailable SOWMYA WALLACE, WOODROW Consulting Unavailable SOWMYA WALLACE, WOODROW Consulting Unavailable CATY WALLACE, CHAD Kaufman Consulting Unavailable CATY WALLACE, CHAD Kaufman Consulting Unavailable GALINA WALLACE, DR LARA Primary Care Unavailable THAD WALLACE, MARU Attending Unavailable DOLLY VOSS, LIZ Attending Yenni MOJICA MD, DR LARA Primary Care Unavailable GALINA WALLACE, DR LARA Primary Care Unavailable CAMDEN WALLACE, AUGIE Daniel Attending Unavailable LUNA BLUE-GIZZARD PULLER, CARLEE GEORGE Attending Chela MOJICA MD, DR LARA Primary Care Unavailable DOLLY VOSS, LIZ Attending Unavailabner MOJICA MD, DR LARA Primary Care Unavailable DOLLY VOSS, LIZ Attending Unavailabner MOJICA MD, DR LARA Primary Care Unavailable JACKI Dotson Attending Provider Unavailable Primary Care Provider UnavailMARCO Butler Primary Care Unavailable MEGHNA GARCIA Attending Unavailable Care Physician, No Primary Primary Care Provider Unavailable Aaliyah Borrego CNM Attending Provider [phone] Aaliyah Borrego CNM Referring Provider [phone] Care Physician, No Primary Referring Provider Un available Tena Soliman DO, Dr. Ortiz Attending Provider Tena Soliman DO, Dr. Ortiz Referring Provider Dr. Margarito Huston DO Referring Provider Dr. Margarito Huston DO Emergency Provider Betzaida BLACK, Dr. Pimentel Attending Provider [phone] Felicia Kaur CNM Attending Provider Care Physician, No Primary Referring Unava ilable Care Physician, No Primary Primary Care Unava ilable Aaliyah Borrego Attending Unavailable Care Physician, No Primary Primary Care Unava ilable Care Physician, No Primary Referring Unava ilable Aaliyah Borrego Attending Unavailable Marco Mojica Referring Unavailable Marco Mojica Primary Care Unavailable Aaliyah Borrego Attending Unavailable Care Physician, No Primary Referring Unava ilable Care Physician, No Primary Primary Care Unava ilable Aaliyah Borrego Attending Unavailable Care Physician, No Primary Primary Care Unava ilable Aaliyah Borrego Attending Unavailable Aaliyah Borrego Referring Unavailable Care Physician, No Primary Primary Care Unava ilable Margarito Huston Referring Unavailable Margarito Huston Attending Unavailable Care Physician, No Primary Primary Care Unava ilable Aaliyah Borrego Attending Unavailable Aaliyah Borrego Referring Unavailable Care Physician, No Primary Primary Care Unava ilable Aaliyah Borrego Referring Unavailable Aaliyah Borrego Attending Unavailable Diana Leigh Referring UnavailDiana Guo Attending Unavailabl e Care Physician, No Primary Primary Care Unava ilable Care Physician, No Primary Referring Unava ilable Karen Vu Attending Unavailable Care Physician, No Primary Primary Care Unava ilable Care Physician, No Primary Referring Unava ilable Adilenee VelDiana almendarez Attending Unavailabl e Care Physician, No Primary Primary Care Unava ilable Care Physician, No Primary Referring Unava ilable Adilenee Jourdan, Diana Attending Unavailabl e Care Physician, No Primary Primary Care Unava ilable Marco Mojica Primary Care Unavailable Aaliyah Borrego Referring Unavailable Aaliyah Borrego Attending Unavailable Diana Leigh Attending Unavailabl e Vande Velerickson, Diana Referring Unavailabl e Care Physician, No Primary Primary Care Unava ilable Adilenee Velerickson, Diana Attending Unavailabl e Care Physician, No Primary Primary Care Unava ilable Care Physician, No Primary Primary Care Unava ilable Aaliyah Borrego Attending Unavailable Care Physician, No Primary Primary Care Unava ilable Aaliyah Borrego Attending Unavailable Aaliyah Borrego Referring Unavailable Galina, Marco Primary Care Unavailable Aaliyah Borrego Referring Unavailable Aaliyah Borrego Attending Unavailable Care Physician, No Primary Primary Care Unava ilable Aaliyah Borrego Attending Unavailable Aaliyah Borrego Referring Unavailable Vande VelDiana almendarez Referring Unavailabl e Vande Velde, Diana Attending Unavailabl e Care Physician, No Primary Primary Care Unava ilable Care Physician, No Primary Primary Care Unava ilable Adilenee Velerickson, Diana Attending Unavailabl e Vande Velde, Diana Referring Unavailabl e Care Physician, No Primary Primary Care Unava ilable Care Physician, No Primary Referring Unava ilable Adilenee Diana Soliman Attending Unavailabl e Care Physician, No Primary Primary Care Unava ilable Adilenee VelDiana almendarez Attending Unavailabl e Care Physician, No Primary Referring Unava ilable Care Physician, No Primary Referring Unava ilable Felicia Kaur Attending Unavailable Care Physician, No Primary Primary Care Unava ilable Allergies Allergy Classification Reported Allergen(s) Allergy Type Date of Onset Reaction(s) Facility (5 sources) Contrast media; Translations: [iodinated radiocontrast agents] Drug allergy Dizziness (finding), Weal (disorder) [facility] (9 sources) Gadolinium-Contain ing Contrast Media; Translations: [GADOLINIUM-CONTAI PATTIE CONTRAST MEDIA] Drug Allergy 1 [facility] (3 sources) Iodinated Contrast Media; Translations: [IODINATED CONTRAST MEDIA] Drug Allergy 2 [facility] (1 source) Iodine (And Iodine Containting Drugs) Drug allergy (disorder) [facility] (15 sources) Triiodobenzoic Acids Allergy to substance 4 [facility] (1 source) Gadolinium-Contain ing Contrast Media Drug Allergy 1 [facility] Work Phone: (1 source) Iodinated Contrast Media Drug allergy (disorder) 5 [facility] Repository Medications Current Medications Medication Drug Class(es) Dates Sig (Normalized) Sig (Original) [id number] 200 actuat albuterol 0.09 mg/actuat metered dose [...] daily amoxicillin-pot clavulanate (Augmentin) 875-125 mg tablet ft 8 in Weight: 238 lb 8 oz BMI 36.2 BP 145/87 H 130/93 H Intake Visit Reasons: 10wk ob per JV Wire Stitcher Required: No Is patient in pain?: No Allergies Iodinated Contrast Media Allergy (Mild, Verified 08/16/24 15:44) Hives Medications ???Medication ???Instructions ???Recorded ???Confirmed ???Type progesterone micronized 200 mg 400 mg (2 x 200 mg) vaginal ONCE 0 07/06/24 08/16/24 Rx capsule (Prometrium) #60 caps aspirin 81 mg tablet,delayed 81 mg PO QDAY 07/16/24 08/16/24 Hi story release (Adult Low Dose Aspirin) multivit-min no.71-iron fum 28 cap PO 07/16/24 08/16/24 History mg-folate no.1 1 mg-dha 300 mg capsule (PNV-Blissfield) cephalexin 500 mg capsule 500 mg PO Q12H 5 days #10 caps 08/16/24 Rx ondansetron 4 mg disintegrating 4 mg PO Q6H PRN nausea and 5 08/16/24 Rx tablet vomiting #30 tabs Last Menstrual Period: 05/29/24 Zika: Zika virus screening: Negative : No PFSH PFSH Medical History Recurrent loss Trichomonal vaginitis Seasonal allergies Shingles Cyst of spleen Surgical History [place] teeth removed Family History Grandmother Throat cancer, [...] physical activity do you participate in: none whitney/amish: Anglican seatbelt use: always do you feel safe [...] -???-???-???-???-?? ? (more content not included)... Normal [facility] Laboratory - Chemistry and C hemistry - challengeOrdered By: Felicia Kaur on 08-13-2024 Glucose Ql (U) Negative [facility] Laboratory - UrinalysisOrder ed By: Felicia Kaur on 08-13-2024 Protein Ql (U) Negative [facility] Machine I Engraver Office Visit Reporton 08-13-2024 Machine I Engraver Office Visit Report [facility]'s [address], [address] [place] [address] OFFICE VISIT Date of Service: 08/13/24 MR#: [id number] Acct: [id number] Name: JEFF RUSHING Rep #: [id number] : 1995 Provider: SALLIE hull Age/Sex: 29/F Location: [facility] Status: Signed Intake Vital Signs 07/27/24 10:15 07/27/24 11:03 08/09/24 14:00 08/13/24 15:55 08/13/24 15:56 Height 5 ft 8 in 5 ft 8 in 5 ft 8 in 5 ft 8 in 5 ft 8 in Weight: 234 lb 2 oz BMI 35.6 BP 130/82 H Intake Visit Reasons: 9wk ob per JV Wire Stitcher Required: No Is patient in pain?: No [...] mg-folate no.1 1 mg-dha 300 mg capsule (PNV-Blissfield) cephalexin 500 mg capsule 500 mg PO Q12H 5 days #10 caps 08/13/24 Rx ondansetron 4 mg disintegrating 4 mg PO Q6H PRN nausea and 5 08/13/24 Rx tablet vomiting #30 tabs Last Menstrual Period: 05/29/24 Zika: Zika virus screening: Negative : No PFSH PFSH Medical History Recurrent loss Trichomonal vaginitis Seasonal allergies Shingles Cyst of spleen Surgical History [place] teeth removed Family History Grandmother Throat cancer, [...] physical activity do you participate in: none whitney/amish: Anglican seatbelt use: always do you feel safe [...] Urine Pro (more content not included)... Normal [facility] Machine I Engraver Office Visit Reporton 08-09-2024 Machine I Engraver Office Visit Report [facility] [address], [address] [place] [address] OFFICE VISIT Date of Service: 08/09/24 MR#: [id number] Acct: [id number] Name: JEFF RUSHING Rep #: [id number] : 1995 Provider: SALLIE Chamberlain ams Age/Sex: 29/F Location: [facility] Status: Signed Intake Vital Signs 08/03/24 14:54 08/09/24 14:00 08/09/24 14:19 Height 5 ft 8 in 5 ft 8 in Weight: 237 lb 238 lb 8 oz BMI 36.0 36.2 BP 139/91 H 140/98 H 135/88 H Intake Visit Reasons: bleeding, heartbeat check per KW Chief Complaint: Bleeding, Heartbeat check Wire Stitcher Required: No Is patient in pain?: No [...] mg-folate no.1 1 mg-dha 300 mg capsule (PNV-Blissfield) cephalexin 500 mg capsule 500 mg PO Q12H 5 days #10 caps 08/09/24 Rx ondansetron 4 mg disintegrating 4 mg PO Q6H PRN nausea and 5 08/09/24 Rx tablet vomiting #30 tabs Last Menstrual Period: 05/29/24 : No PFSH PFSH Medical History Recurrent loss Trichomonal vaginitis Seasonal allergies Shingles Cyst of spleen Surgical History [place] teeth removed Family History Grandmother Throat cancer, [...] physical activity do you participate in: none whitney/amish: Anglican seatbelt use: always do you feel safe [...] Prot -???-?? (more content not included)... Normal [facility] Amphetamine detection with 1 000 ng/mL as cutoffOrdered By: Diana Soliman on 08-03-2024 Amphetamines Screen method >1000 ng/mL Ql (U) Negative < 200 ng/mL [facility] Laboratory - Chemistry and C hemistry - challengeOrdered By: Aaliyah Borrego on 08-03-2024 Glucose Ql (U) Negative [facility] Laboratory - UrinalysisOrder ed By: Aaliyah Borrego on 08-03-2024 Protein Ql (U) Negative [facility] No Panel InformationOrdered By: Diana Soliman on 08-03-2024 Urine Buprenorphine Qualitative Negative < 200 ng/mL [facility] Urine Oxycodone Screen Negative < 100 ng/mL [facility] Machine I Engraver Office Visit Reporton 08-03-2024 Machine I Engraver Office Visit Report [facility] [place] [address], [address] [place] [address] OFFICE VISIT Date of Service: 08/03/24 MR#: [id number] Acct: [id number] Name: JEFF RUSHING Rep #: [id number] : 1995 Provider: SALLIE Chamberlain ams Age/Sex: 29/F Location: [facility] Status: Signed Intake Vital Signs 07/27/24 10:15 07/27/24 11:04 08/03/24 14:54 Height 5 ft 8 in 5 ft 8 in 5 ft 8 in Weight: 237 lb BMI 36.0 BP 139/91 H Intake Visit Reasons: 8wk ob *rescan per JV Chief Complaint: 8wk OB Wire Stitcher Required: No Is patient in pain?: No [...] mg-folate no.1 1 mg-dha 300 mg capsule (PNV-Blissfield) cephalexin 500 mg capsule 500 mg PO Q12H 5 days #10 caps 08/03/24 Rx ondansetron 4 mg disintegrating 4 mg PO Q6H PRN nausea and 5 08/03/24 Rx tablet vomiting #30 tabs Last Menstrual Period: 05/29/24 : No Have you fallen in the past year?: No PFSH PFSH Medical History Recurrent loss Trichomonal vaginitis Seasonal allergies Shingles Cyst of spleen Surgical History [place] teeth removed Family History Grandmother Throat cancer, [...] physical activity do you participate in: none whitney/amish: Anglican seatbelt use: always do you feel safe [...] -???-???-???-???-?? ?-???-???-???-? (more content not included)... Normal [facility] Quantitative urine opiates m easurementOrdered By: Diana Soliman on 08-03-2024 Opiates Ql (U) Negative < 300 ng/mL [facility] Screening urine fentanyl patti surementOrdered By: Diana Soliman on 08-03-2024 fentaNYL Screen Ql (U) Negative [facility] Urine Drug Screen (VISTA)on 08-03-2024 AMPHETAMINES Negative Normal <1000 ng/mL [facility] Comment on above: Order Comment: UNK Performed By: #### L 3100.8410, L4500.0100, L3410.1999, L801.2600 #### [facility] [address] [place], [place], [id number] BARBITIURATES Negative Normal < 200 ng/mL [facility] Comment on above: Order Comment: UNK Performed By: #### L 3100.8410, L4500.0100, L3410.2000, L801.2600 #### [facility] [address] [place], [address] BENZODIAZIPINE Negative Normal < 200 ng/mL [facility] Comment on above: Order Comment: UNK Performed By: #### L 3100.8410, L4500.0100, L3410.2000, L801.2600 #### [facility] [address] [place], [address] BUP Ur Drug Scr Negative Normal < 200 ng/mL [facility] Comment on above: Order Comment: UNK Performed By: #### L 3100.8410, L4500.0100, L3410.2000, L801.2600 #### [facility] [address] [place], [address] COCAINE Negative Normal < 300 ng/mL [facility] Comment on above: Order Comment: UNK Performed By: #### L 3100.8410, L4500.0100, L3410.1999, L801.2600 #### [facility] [address] [place], [address] Fentanyl Negative Normal [facility] Comment on above: Order Comment: UNK Performed By: #### L 3100.8410, L4500.0100, L3410.2000, L801.2600 #### [facility] [address] [place], [address] METHADONE Negative Normal < 300 ng/mL [facility] Comment on above: Order Comment: UNK Performed By: #### L 3100.8410, L4500.0100, L3410.2000, L801.2600 #### [facility] [address] [place], [address] OPIATES Negative Normal < 300 ng/mL [facility] Comment on above: Order Comment: UNK Performed By: #### L 3100.8410, L4500.0100, L3410.2000, L801.2600 #### [facility] [address] [place], [address] OXYCODONE Negative Normal < 100 ng/mL [facility] Comment on above: Order Comment: UNK Performed By: #### L 3100.8410, L4500.0100, L3410.2000, L801.2600 #### [facility] [address] [place], [address] PCP Negative Normal < 25 ng/mL [facility] Comment on above: Order Comment: UNK Performed By: #### L 3100.8410, L4500.0100, L3410.2000, L801.2600 #### [facility] [address] [place], [address] THC Negative Normal < 50 ng/mL [facility] Comment on above: Order Comment: UNK Performed By: #### L 3100.8410, L4500.0100, L3410.1999, L801.2600 #### [facility] [address] [place], [address] Urine benzodiazepine levelOr dered By: Diana Soliman on 08-03-2024 Benzodiazepines Ql (U) Negative < 200 ng/mL [facility] Urine cocaine levelOrdered B y: Diana Soliman on 08-03-2024 Cocaine Ql (U) Negative < 300 ng/mL [facility] Urine pdgdh-8-lblxtukpnrckbo abinol (THC) measurementOrdered By: Diana Soliman on 08-03-2024 Cannabinoids Screen Ql (U) Negative < 50 ng/mL [facility] Urine phencyclidine (PCP) de tectionOrdered By: Diana Soliman on 08-03-2024 Phencyclidine Ql (U) Negative < 25 ng/mL [facility] Genital Culture Comprehensiv key 07-29-2024 VAC Reason for Exam: vaginal discharge Normal vaginal job isolated. No yeast, Gardnerella, Neisseria or beta-hemolytic Streptococcus isolated. Normal [facility] Comment on above: Performed By: #### L 3100.8410, L4500.0100, L3410.2000, L801.2600 #### [facility] [address] [place], [address] Chlamydia/GC PETER aptimaon CHLAMY,NUC ACID Negative Normal Negative [facility] Comment on above: Performed By: #### L 3100.8410, L4500.0100, L3410.2000, L801.2600 #### [facility] [address] [place], [address] GC BY NUC ACID Negative Normal Negative [facility] Comment on above: Result Comment: Perf ormed at: =G - [facility] [address] [id number] Occupational Health Nurse Manager: Jada Mayberry MD, Phone: [phone] Performed By: #### L 3100.8410, L4500.0100, L3410.2000, L801.2600 #### [facility] [address] [place], [address] Urine Cultureon 07-28-2024 URC Mixed Gram Positive Organisms Welcome Count 11,000-25,000 MIXC Mixed contaminants. Submit a new specimen if indicated. Normal [facility] Comment on above: Performed By: #### L 3100.8410, L4500.0100, L3410.2000, L801.2600 #### [facility] [address] [place], [address] Chlamydia trachomatis rRNA d etection by probe and target amplification methodOrdered By: iDana Soliman on 07-27-2024 C. trachomatis rRNA PETER+probe Ql (Unsp spec) Negative Negative [facility] Genital cultureOrdered By: María Soliman on 07-27-2024 Source specific culture Neisseria or beta-hemolytic Streptococcus isolated. [facility] Gram Stainon 07-27-2024 GS Reason for Exam: vaginal discharge Gram Stain 4+ Gram positive rods 1+ Gram variable ximena No Gram negative diplococci Score =1 Interpretation: 0-3 Normal, 4-6 Intermediate, 7-10 Positive BV Normal [facility] Comment on above: Performed By: #### L 3100.8410, L4500.0100, L3410.2000, L801.2600 #### [facility] [address] [place], [address] Gram stainOrdered By: Daniel Soliman on 07-27-2024 Microscopic observation Gram stain Nom (Unsp spec) [facility] Neisseria gonorrhoeae nuclei c acid detection by amplified probe techniqueOrdered By: Diana Soliman on 07-27-2024 N. gonorrhoeae DNA PETER+probe Ql (Unsp spec) Negative Negative [facility] Comment on above: Performed at: =[address] [id number] Director: Jada Mayberry MD, Phone: [phone] Machine I Engraver Office Visit Reporton 07-27-2024 Machine I Engraver Office Visit Report [facility] [address], [address] [place] [address] OFFICE VISIT Date of Service: 07/27/24 MR#: [id number] Acct: [id number] Name: JEFF RUSHING Rep #: [id number] : 1995 Provider: Dr. Diana Morton, Age/Sex: 29/F Location: [facility] Status: Signed Intake Vital Signs 10/17/23 10:44 07/16/24 14:24 07/25/24 11:13 07/27/24 10:15 07/27/24 10:15 Height 5 ft 8 in 5 ft 8 in 5 ft 8 in 5 ft 8 in 5 ft 8 in Weight: 234 lb 2 oz BMI 35.6 BP 138/88 H Intake Visit Reasons: NOB: LMP 05/29/24, JYOTHI 03/05/25 Wire Stitcher Required: No Is patient in pain?: No Allergies Iodinated Contrast Media Allergy (Mild, Verified 07/27/24 10:13) Hives Medications ???Medication ???Instructions ???Recorded ???Confirmed ???Type progesterone micronized 200 mg 400 mg (2 x 200 mg) vaginal ONCE 0 4/29/25 05/20/25 Rx capsule (Prometrium) #60 caps aspirin 81 mg tablet,delayed 81 mg PO QDAY 07/16/24 07/27/24 Hi story release (Adult Low Dose Aspirin) multivit-min no.71-iron fum 28 cap PO 07/16/24 07/27/24 History mg-folate no.1 1 mg-dha 300 mg capsule (PNV-Blissfield) cephalexin 500 mg capsule 500 mg PO Q12H 5 days #10 caps 07/27/24 Rx ondansetron 4 mg disintegrating 4 mg PO Q6H PRN nausea and 5 07/27/24 Rx tablet vomiting #30 tabs Last Menstrual Period: 05/29/24 Zika: Zika virus screening: Negative : No PFSH PFSH Medical History Recurrent loss Trichomonal vaginitis Seasonal allergies Shingles Cyst of spleen Surgical History [place] teeth removed Family History Grandmother Throat cancer, [...] physical activity do you participate in: none whitney/amish: Anglican seatbelt use: always do you feel safe [...] Date -??? (more content not included)... Normal [facility] Absolute lymphocyte countOrd ered By: Margarito Huston on 07-25-2024 Lymphocytes Auto (Unsp spec) [#/Vol] 2.34 10*3/uL 0.83-4.51 [facility] Absolute neutrophil countOrd ered By: Margarito Huston on 07-25-2024 Neutrophils (Bld) [#/Vol] 3.9 10*3/uL 2.0-7.7 [facility] Anion gap in Serum or Plasma Ordered By: Margarito Huston on 07-25-2024 Anion gap [Moles/Vol] 12 mmol/L 5-15 [facility] Automated lymphocyte count a s percentage of total leukocytesOrdered By: Margarito Huston on 07-25-2024 Lymphocytes/100 WBC Auto (Unsp spec) 35.0 % 19-41 [facility] [id number] 07-25-2024 ABO and Rh group Nom (Bld) Blood group O Rh(D) positive Normal [facility] Comment on above: Performed By: #### L 801.2600 #### [facility] [address] [place], [place], [id number] (323) BUN/creatinine ratioOrdered By: Margarito Huston on 07-25-2024 Urea nitrogen/Creatinine [Mass ratio] 12.3 mg/mg 10-20 [facility] Basophil percentageOrdered B y: Margarito Huston on 07-25-2024 Basophils/100 WBC (Bld) 0.3 % 0-1 [facility] Bilirubin Test strip Ql (U)O rdered By: Margarito Huston on 07-25-2024 Bilirubin Ql (U) Negative Negative [facility] Bilirubin, totalOrdered By: Margarito Huston on 07-25-2024 Bilirubin [Mass/Vol] 0.52 mg/dL 0.00-1.30 [facility] CBC W/Diff, Automatedon 07-08 Absolute Lymph 2.34 X10 3/uL Normal 0.83-4.51 [facility] Comment on above: Performed By: #### L 801.2600 #### [facility] [address] [place], [address] Absolute Neut 3.9 X10 3/uL Normal 2.0-7.7 [facility] Comment on above: Performed By: #### L 801.2600 #### [facility] [address] [place], [address] Basophils/100 WBC (Bld) 0.3 % Normal 0-1 [facility] Comment on above: Performed By: #### L 801.2600 #### [facility] [address] [place], [address] Eosinophils/100 WBC (Bld) 0.6 % Normal 0-5 [facility] Comment on above: Performed By: #### L 801.2600 #### [facility] [address] [place], [address] Erythrocyte distribution width (RBC) [Ratio] 12.2 % Normal 11.6-14.6 [facility] Comment on above: Performed By: #### L 801.2600 #### [facility] [address] [place], [address] Hematocrit (Bld) [Volume fraction] 42.8 % Normal 37-47 [facility] Comment on above: Performed By: #### L 801.2600 #### [facility] [address] [place], [address] Hemoglobin (Bld) [Mass/Vol] 14.9 g/dL Normal 12.0-15.0 [facility] Comment on above: Performed By: #### L 801.2600 #### [facility] [address] [place], [address] IG% 0.300 Normal 0.0-0.9 [facility] Comment on above: Result Comment: IG% - Immature Granulocytes (promyelocytes, myelocytes and metamyelocytes) > 1% indicates that a LEFT SHIFT is Present. Performed By: #### L 801.2600 #### [facility] [address] [place], [address] Lymphocytes/100 WBC (Bld) 35.0 % Normal 19-41 [facility] Comment on above: Performed By: #### L 801.2600 #### [facility] [address] [place], [address] MCH (RBC) [Entitic mass] 29.3 pg Normal 27.0-32.0 [facility] Comment on above: Performed By: #### L 801.2600 #### [facility] [address] [place], [address] MCHC (RBC) [Mass/Vol] 34.8 g/dL Normal 32-36 [facility] Comment on above: Performed By: #### L 801.2600 #### [facility] [address] [place], [address] MCV (RBC) [Entitic vol] 84.1 fL Normal 81-[address] [facility] Comment on above: Performed By: #### L 801.2600 #### [facility] [address] [place], [address] Monocytes/100 WBC (Bld) 5.1 % Normal 0-[address] [facility] Comment on above: Performed By: #### L 801.2600 #### [facility] [address] [place], [address] Neutrophils/100 WBC (Bld) 58.7 % Normal 47-70 [facility] Comment on above: Performed By: #### L 801.2600 #### [facility] [address] [place], [address] Nucleated RBC (Bld) [#/Vol] 0 10*3/uL Normal 0-5 [facility] Comment on above: Performed By: #### L 801.2600 #### [facility] [address] [place], [address] Platelet mean volume (Bld) [Entitic vol] 11.9 fL Normal 6.2-12.0 [facility] Comment on above: Performed By: #### L 801.2600 #### [facility] [address] [place], [address] Platelets (Bld) [#/Vol] 203 10*3/uL Normal 150-450 [facility] Comment on above: Performed By: #### L 801.2600 #### [facility] [address] [place], [address] RBC (Bld) [#/Vol] 5.09 10*6/uL Normal 4.2-5.4 [facility] Comment on above: Performed By: #### L 801.2600 #### [facility] [address] [place], [address] RDW SD 36.9 fl Normal 35.1-43.9 [facility] Comment on above: Performed By: #### L 801.2600 #### [facility] [address] [place], [address] WBC (Bld) [#/Vol] 6.7 10*3/uL Normal 4.4-11.0 [facility] Comment on above: Performed By: #### L 801.2600 #### [facility] [address] [place], [address] Carbon dioxide, total [Moles /volume] in Central venous bloodOrdered By: Margarito Huston on 07-25-2024 CO2 [Moles/Vol] 20.4 mmol/L Low 21.0-32.0 [facility] Chloride assayOrdered By: Kalpesh Huston on 07-25-2024 Chloride [Moles/Vol] 104 mmol/L 98-108 [facility] Comprehensive Metabolic Prof ilon 07-25-2024 Albumin [Mass/Vol] 4.4 g/dL Normal 3.5-5.0 [facility] Comment on above: Performed By: #### L 801.2600 #### [facility] [address] [place], [address] Albumin/Globulin [Mass ratio] 1.5 {ratio} Normal 0.9-2.4 [facility] Comment on above: Performed By: #### L 801.2600 #### [facility] [address] [place], [address] ALK PHOS 73 U/L Normal 35-104 [facility] Comment on above: Performed By: #### L 801.2600 #### [facility] [address] [place], [address] ALT [Catalytic activity/Vol] 22 U/L Normal <=34 [facility] Comment on above: Performed By: #### L 801.2600 #### [facility] [address] [place], [address] AST [Catalytic activity/Vol] 17 U/L Normal <=31 [facility] Comment on above: Performed By: #### L 801.2600 #### [facility] [address] [place], [address] Bilirubin [Mass/Vol] 0.52 mg/dL Normal 0.00-1.30 [facility] Comment on above: Performed By: #### L 801.2600 #### [facility] [address] [place], [address] BUN/CRE 12.3 RATIO Normal 10-20 [facility] Comment on above: Performed By: #### L 801.2600 #### [facility] [address] [place], [address] Calcium [Mass/Vol] 9.3 mg/dL Normal 7.6-11.0 [facility] Comment on above: Performed By: #### L 801.2600 #### [facility] [address] [place], [address] Chloride [Moles/Vol] 104 mmol/L Normal 98-108 [facility] Comment on above: Performed By: #### L 801.2600 #### [facility] [address] [place], [address] CO2 [Moles/Vol] 20.4 mmol/L Low 21.0-32.0 [facility] Comment on above: Performed By: #### L 801.2600 #### [facility] [address] [place], [address] Creatinine [Mass/Vol] 0.41 mg/dL Low 0.70-1.20 [facility] Comment on above: Performed By: #### L 801.2600 #### [facility] [address] [place], [address] ECRCL 260.82 ml/min High 50-250 [facility] Comment on above: Performed By: #### L 801.2600 #### [facility] [address] [place], [address] GAP 12 Normal 5-15 [facility] Comment on above: Performed By: #### L 801.2600 #### [facility] [address] [place], [address] GFR/1.73 sq M.predicted among non-blacks MDRD (S/P/Bld) [Vol rate/Area] 138 mL/min/{1.73_m2} Normal >60 [facility] Comment on above: Result Comment: mL/m in/1.73m2 CKD-EPI Creatinine Equation (2020) Performed By: #### L 801.2600 #### [facility] [address] [place], [address] Globulin (S) [Mass/Vol] 2.8 g/dL Normal 2.2-4.[address] [facility] Comment on above: Performed By: #### L 801.2600 #### [facility] [address] [place], [address] Glucose [Mass/Vol] 87 mg/dL Normal 70-99 [facility] Comment on above: Performed By: #### L 801.2600 #### [facility] [address] [place], [address] Potassium [Moles/Vol] 3.6 mmol/L Normal 3.3-5.1 [facility] Comment on above: Performed By: #### L 801.2600 #### [facility] [address] [place], [address] Sodium [Moles/Vol] 136 mmol/L Normal 133-145 [facility] Comment on above: Performed By: #### L 801.2600 #### [facility] [address] [place], [address] T PROT 7.2 g/dL Normal 5.9-8.4 [facility] Comment on above: Performed By: #### L 801.2600 #### [facility] [address] [place], [address] Urea nitrogen [Mass/Vol] 5 mg/dL Normal 4-19 [facility] Comment on above: Performed By: #### L 801.2600 #### [facility] [address] [place], [place], [address] (826) Emergency Department Summary on 07-25-2024 Emergency Department Summary [facility] Department [address] [place] [address] Emergency Department Summary 07/25/24 MR#: [id number] Acct: [id number] Name: JEFF RUSHING Rep #: [id number] : 1995 29 From: Margarito Huston DO [...] some heavier bleeding therefore she called her [employer]RON ATTENDANT and they advised her to come here for further evaluation management. Patient states that she is not have any pain right now. [facility] Medical History Recurrent loss Trichomonal vaginitis Seasonal [...] mg-folate no.1 1 mg-dha 300 mg capsule (PNV-[place]) cephalexin 500 mg capsule 500 mg PO Q12H 5 days #10 caps Unknown Rx Allergy/AdvReac Type Severity Reaction Status Date / Time Iodinated Contrast Media Allergy Mild Hives Verified 07/25/24 11:13 Family History Grandmother Throat cancer, Onset Age: 68 Maternal Grandfather Lung cancer Maternal, smoker-onset age unknown Father Diabetes Hypertension Myocardial infarction Surgical History [place] teeth removed Social History adopted: No household [...] physical activity do you participate in: none whitney/amish: Anglican seatbelt use: always do you feel safe [...] follow commands knew that she was at [facility] year is 2024 Skin: Warm, dry, intact no rashes lesions noted Const Vital Signs: 07/25/24 11:13 Temperature 97.3 F L Temperature Source Temporal Pulse Rate 89 Respiratory Rate 16 Blood Pressure 134/101 H Blood Pressure Mean 112 Pulse Ox 99 Oxygen Delivery Method Room A (more content not included)... Normal [facility] Eosinophil percentageOrdered By: Margarito Huston on 07-25-2024 Eosinophils/100 WBC (Bld) 0.6 % 0-5 [facility] Erythrocyte distribution wid th ratioOrdered By: Margarito Huston on 07-25-2024 Erythrocyte distribution width (RBC) [Ratio] 12.2 % 11.6-14.6 [facility] Erythrocyte distribution wid th standard deviationOrdered By: Margarito Huston on 07-25-2024 Erythrocyte distribution width (RBC) [Ratio] 36.9 fl 35.1-43.9 [facility] Glomerular filtration rate ( GFR) estimation/1.73 sq m using serum, plasma, or whole bOrdered By: Margarito Huston on 07-25-2024 GFR/1.73 sq M.predicted among non-blacks MDRD (S/P/Bld) [Vol rate/Area] 138 mL/min/{1.73_m2} >60 [facility] Comment on above: mL/min/1.73m2 CKD-EP I Creatinine Equation (2020) Hematocrit Auto (Bld) [Volum e fraction]Ordered By: Margarito Huston on 07-25-2024 Hematocrit (Bld) [Volume fraction] 42.8 % 37-47 [facility] Hemoglobin measurementOrdere d By: Margarito Hutson on 07-25-2024 Hemoglobin (Bld) [Mass/Vol] 14.9 g/dL 12.0-15.0 [facility] Immature granulocytes/100 WB C Auto (Bld)Ordered By: Margarito Huston on 07-25-2024 Immature granulocytes/100 WBC (Bld) 0.300 % 0.0-0.9 [facility] Comment on above: IG% - Immature Granu locytes (promyelocytes, myelocytes and metamyelocytes) > 1% indicates that a LEFT SHIFT is Present. Ketones Test strip Ql (U)Ord ered By: Margarito Huston on 07-25-2024 Ketones Ql (U) Negative Negative [facility] - Chemistry and C hemistry - challengeOrdered By: Margarito Huston on 07-25-2024 AST [Catalytic activity/Vol] 17 U/L <32 [facility] Lipaseon 07-25-2024 Lipase [Catalytic activity/Vol] 17 U/L Normal 13-75 [facility] Comment on above: Result Comment: Alysia guardado note: LIPASE revised reference range effective 22. New Lipase methodology. Expected to produce lower values than the previous assay method. NEW Reference Range: 13 - 75 U/L Performed By: #### L 801.2600 #### [facility] [address] [place], [address] Lipase measurementOrdered By : Margarito Huston on 07-25-2024 Lipase [Catalytic activity/Vol] 17 U/L 13-75 [facility] Comment on above: Please note:LIPASE r evised reference range effective 22. New Lipase methodology. Expected to produce lower values than the previous assay method. NEW Reference Range: 13 - 75 U/L MCV (mean corpuscular volume ) determinationOrdered By: Margarito Huston on 07-25-2024 MCV (RBC) [Entitic vol] 84.1 fL 81-99 [facility] Mean corpuscular hemoglobin (MCH) determinationOrdered By: Margarito Huston on 07-25-2024 MCH (RBC) [Entitic mass] 29.3 pg 27.0-32.0 [facility] Mean corpuscular hemoglobin concentration (MCHC) determinationOrdered By: Margarito Huston on 07-25-2024 MCHC (RBC) [Mass/Vol] 34.8 g/dL 32-36 [facility] Mean platelet volume determi nationOrdered By: Margarito Huston on 07-25-2024 Platelet mean volume (Bld) [Entitic vol] 11.9 fL 6.2-12.0 [facility] Microscopic analysis of urin e for red blood cells (RBC)Ordered By: Margarito Huston on 07-25-2024 Microscopic analysis of urine for red blood cells (RBC) 0-5 SEEN /hpf 0-5 [facility] Monocyte percentageOrdered B y: Margarito Huston on 07-25-2024 Monocytes/100 WBC (Bld) 5.1 % 0-10 [facility] Mucus LM Ql (Urine sed)Order ed By: Margarito Huston on 07-25-2024 Mucus Ql (Urine sed) 1+ /hpf [facility] Neutrophil percentageOrdered By: Margarito Huston on 07-25-2024 Neutrophils/100 WBC (Bld) 58.7 % 47-70 [facility] Nitrite Test strip Ql (U)Ord ered By: Margarito Huston on 07-25-2024 Nitrite Ql (U) Negative Negative [facility] Nucleated red blood cell per centageOrdered By: Margarito Huston on 07-25-2024 Nucleated RBC/100 WBC (Bld) [Ratio] 0 % 0-5 [facility] Platelet countOrdered By: Kalpesh Huston on 07-25-2024 Platelets (Bld) [#/Vol] 203 10*3/uL 150-450 [facility] Potassium measurement (mass/ volume)Ordered By: Margarito Hustno on 07-25-2024 Potassium (Unsp spec) [Mass/Vol] 3.6 mmol/L 3.3-5.1 [facility] ,Serum,hCG Quali.on 07-25-2024 HCG, SERUM QUAL Positive Normal [facility] Comment on above: Result Comment: RESU LTS CALLED TO Stefany KAM 07/25/24 Malena Kerr. REPORT READ BACK BY SAME. Performed By: #### L 801.2600 #### [facility] [place], [place], [id number] Protein Test strip Ql (U)Ord ered By: Margarito Huston on 07-25-2024 Protein Ql (U) 30 mg/dl High Negative [facility] RBC Auto (Bld) [#/Vol]Ordere d By: Margarito Huston on 07-25-2024 RBC (Bld) [#/Vol] 5.09 10*6/uL 4.2-5.4 [facility] Serum beta-hCG test, qualita tiveOrdered By: Margarito Huston on 07-25-2024 Beta HCG ( test) Ql Negative [facility] Comment on above: RESULTS CALLED TO Stefany KAM 07/25/24 Malena Kerr.REPORT READ BACK BY SAME. Serum creatinine measurement (mass/volume)Ordered By: Margarito Huston on 07-25-2024 Creatinine [Mass/Vol] 0.41 mg/dL Low 0.70-1.20 [facility] Serum globulin measurementOr dered By: Margarito Huston on 07-25-2024 Globulin (S) [Mass/Vol] 2.8 g/dL 2.2-4.2 [facility] Serum glucose measurement (m ass/volume)Ordered By: Margarito Huston on 07-25-2024 Glucose [Mass/Vol] 87 mg/dL 70-99 [facility] Serum human chorionic gonado tropin detection for pregnancyOrdered By: Margarito Huston on 07-25-2024 HCG ( [place]) [place]l [address] mIU/mL High <9 [facility] Comment on above: Gestational Age0.2-1 Week: 5-50 mIU/mL1-2 Weeks: 50-500 mIU/mL2-3 Weeks: 100-5000 mIU/mL3-4 Weeks: 500-10,000 mIU/mL4-5 Weeks:1000-50,000 mIU/mL5-6 Weeks: 10,000-100,000 mIU/mL6-8 Weeks: 15,000-200,000 mIU/mL2-3 Months:10,000-100,000 mIU/mL Serum or plasma alanine bae otransferase (ALT) measurementOrdered By: Margarito Huston on 07-25-2024 ALT [Catalytic activity/Vol] 22 U/L <35 [facility] Serum or plasma albumin ash urement (mass/volume)Ordered By: Margarito Huston on 07-25-2024 Albumin [Mass/Vol] 4.4 g/dL 3.5-5.0 [facility] Serum or plasma albumin/glob ulin mass ratioOrdered By: Margarito Huston on 07-25-2024 Albumin/Globulin [Mass ratio] 1.5 {ratio} 0.9-2.4 [facility] Serum or plasma alkaline belle sphatase measurementOrdered By: Margarito Huston on 07-25-2024 ALP [Catalytic activity/Vol] 73 U/L 35-104 [facility] Serum or plasma calcium ash urement (mass/volume)Ordered By: Margarito Huston on 07-25-2024 Calcium [Mass/Vol] 9.3 mg/dL 7.6-11.0 [facility] Serum or plasma urea nitroge n measurement (mass/volume)Ordered By: Margarito Huston on 07-25-2024 Urea nitrogen [Mass/Vol] 5 mg/dL 4-19 [facility] Sodium levelOrdered By: Placido Huston on 07-25-2024 Sodium [Moles/Vol] 136 mmol/L 133-145 [facility] Squamous epithelial cells de tection in urine sediment by light microscopyOrdered By: Margarito Huston on 07-25-2024 Epithelial cells.squamous LM Ql (Urine sed) 0-5 SEEN /hpf 5-10 [facility] Total proteinOrdered By: William Huston on 07-25-2024 Protein [Mass/Vol] 7.2 g/dL 5.9-8.4 [facility] Transvaginal w/Preg USon Transvaginal w/Preg US [facility] Imaging Services [address] [place] [address] Transvaginal w/Preg US MR#: [id number] Acct: [id number] Name: JEFF RUSHING Rep #: [id number] : 1995 F 29 From: Maru Varghese MD PCP: Care Physician,No Primary Status: REG ER Study: Transvaginal w/Preg US Date of Exam: 07/25/24 Exam# [id number] Ordering Dr: Margarito Huston DO EXAM: US , Transvaginal CLINICAL [...] IMPRESSION: Single live intrauterine . Reading Location: [facility] CC: Dr. Margarito Huston DO; No Primary Care Physician Project Management Manager: Signed Normal [facility] Urinalysis, Completeon 07-25 BACTERIA 2+ /hpf Normal None Seen [facility] Comment on above: Order Comment: CLEAN CATCH Performed By: #### L 3100.8410, L4500.0100, L3410.2000, L801.2600 #### [facility] [address] [place], [address] EPI,SQUAMOUS 0-5 SEEN Normal 5-10 [facility] Comment on above: Order Comment: CLEAN CATCH Performed By: #### L 3100.8410, L4500.0100, L3410.2000, L801.2600 #### [facility] [address] [place], [address] Mucus Ql (Urine sed) 1+ /hpf Normal [facility] Comment on above: Order Comment: CLEAN CATCH Performed By: #### L 3100.8410, L4500.0100, L3410.2000, L801.2600 #### [facility] [address] [place], [address] RBC 0-5 SEEN Normal 0-5 [facility] Comment on above: Order Comment: CLEAN CATCH Performed By: #### L 3100.8410, L4500.0100, L3410.2000, L801.2600 #### [facility] [address] [place], [address] WBC 0-5 SEEN Normal 0-5 [facility] Comment on above: Order Comment: CLEAN CATCH Performed By: #### L 3100.8410, L4500.0100, L3410.2000, L801.2600 #### [facility] [address] [place], [address] Urine clarityOrdered By: William Huston on 07-25-2024 Clarity (U) Sl. Cloudy Clear [facility] Urine color determinationOrd ered By: Margarito Huston on 07-25-2024 Color (U) Yellow Yellow [facility] Urine cultureOrdered By: William Huston on 07-25-2024 Bacteria identified Cx Nom (U) Positive Abnormal [facility] Urine glucose detectionOrder ed By: Margarito Huston on 07-25-2024 Glucose Ql (U) Normal mg/dl Normal [facility] Urine leukocyte esterase det ection by dipstickOrdered By: Margarito Huston on 07-25-2024 Leukocyte esterase Test strip Ql (U) 25 /ul High Negative [facility] Urine pHOrdered By: aMrgarito latham on 07-25-2024 pH (U) 6.5 [pH] 5.0 - 8.0 [facility] Urine sediment bacteria coun t by microscopy (number/high power field)Ordered By: Margarito Huston on 07-25-2024 Bacteria LM.HPF (Urine sed) [#/Area] 2 /[HPF] None Seen [facility] Urine specific gravity measu rementOrdered By: Margarito Huston on 07-25-2024 Specific gravity (U) [Rel density] 1.015 1.002-1.030 [facility] Urine urobilinogen measureme ntOrdered By: Margarito Huston on 07-25-2024 Urobilinogen Ql (U) Normal mg/dl Normal [facility] White blood cell (WBC) count Ordered By: Margarito Huston on 07-25-2024 WBC (Bld) [#/Vol] 6.7 10*3/uL 4.4-11.0 [facility] White blood cell countOrdere d By: Margarito Huston on 07-25-2024 White blood cell count 0-5 SEEN /hpf 0-5 [facility] hCG Titer Quant., Serumon HCG QUANT. 27296 mIU/mL High <9 non-preg [facility] Comment on above: Result Comment: Gest ational Age 0.2-1 Week: 5-50 mIU/mL 1-2 Weeks: 50-500 mIU/mL 2-3 Weeks: 100-5000 mIU/mL 3-4 Weeks: 500-10,000 mIU/mL 4-5 Weeks:1000-50,000 mIU/mL 5-6 Weeks: 10,000-100,000 mIU/mL 6-8 Weeks: 15,000-200,000 mIU/mL 2-3 Months:10,000-100,000 mIU/mL Performed By: #### L 3100.8410, L4500.0100, L3410.1999, L801.2600 #### [facility] [address] [place], [place], [address] PROGESTERONE 4317on 07-22-19 PROGESTERONE 7.7 ng/mL Normal . [facility] Comment on above: Order Comment: N Result Comment: Foll icular phase 0.1 - 0.9 Luteal phase 1.8 - 23.9 Ovulation phase 0.1 - 12.0 First trimester 11.0 - 44.3 Second trimester 25.4 - 83.3 Third trimester 58.7 - 214.0 Postmenopausal 0.0 - 0.1 Performed at: [address] [id number] Occupational Health Nurse Manager: Juan M Nielsen PhD, Phone: [phone] Performed By: #### L 3100.8410, L4500.0100, L3410.1999, L801.2600 #### [facility] [address] [place], [place], [id number] Serum human chorionic gonado tropin detection for pregnancyOrdered By: Aaliyah Borrego on 07-21-2024 HCG ( test) [place]l [address] mIU/mL High <9 [facility] Comment on above: Gestational Age0.2-1 Week: 5-50 mIU/mL1-2 Weeks: 50-500 mIU/mL2-3 Weeks: 100-5000 mIU/mL3-4 Weeks: 500-10,000 mIU/mL4-5 Weeks:1000-50,000 mIU/mL5-6 Weeks: 10,000-100,000 mIU/mL6-8 Weeks: 15,000-200,000 mIU/mL2-3 Months:10,000-100,000 mIU/mL hCG Titer Quant., Serumon HCG QUANT. 26072 mIU/mL High <9 non-preg [facility] Comment on above: Result Comment: Gest ational Age 0.2-1 Week: 5-50 mIU/mL 1-2 Weeks: 50-500 mIU/mL 2-3 Weeks: 100-5000 mIU/mL 3-4 Weeks: 500-10,000 mIU/mL 4-5 Weeks:1000-50,000 mIU/mL 5-6 Weeks: 10,000-100,000 mIU/mL 6-8 Weeks: 15,000-200,000 mIU/mL 2-3 Months:10,000-100,000 mIU/mL Performed By: #### L 801.2600 #### [facility] [address] [place], [place], [address] Serum human chorionic gonado tropin detection for pregnancyOrdered By: Aaliyah Borrego on 07-19-2024 HCG ( test) Ql 8841 mIU/mL High <9 [facility] Comment on above: Gestational Age0.2-1 Week: 5-50 mIU/mL1-2 Weeks: 50-500 mIU/mL2-3 Weeks: 100-5000 mIU/mL3-4 Weeks: 500-10,000 mIU/mL4-5 Weeks:1000-50,000 mIU/mL5-6 Weeks: 10,000-100,000 mIU/mL6-8 Weeks: 15,000-200,000 mIU/mL2-3 Months:10,000-100,000 mIU/mL Transvaginal w/Preg USon Transvaginal w/Preg US [facility] Imaging Services [address] [place], [place] [address] Transvaginal w/Preg US MR#: [id number] Acct: [id number] Name: JEFF RUSHING Rep #: [id number] : 1995 F 29 From: Kwame lanier MD PCP: Care Physician,No Primary Status: REG CLI Study: Transvaginal w/Preg US Date of Exam: 07/19/24 Exam# [id number] Ordering Dr: Aaliyah Borrego CNM PROCEDURE: TRANSVAGINAL [...] seen in the right ovary. Reading Location: [id number] CC: SALLIE Borrego; No Primary Care Physician Project Management Manager: Signed Normal [facility] hCG Titer Quant., Serumon HCG QUANT. 8841 mIU/mL High <9 non-preg [facility] Comment on above: Result Comment: Gest ational Age 0.2-1 Week: 5-50 mIU/mL 1-2 Weeks: 50-500 mIU/mL 2-3 Weeks: 100-5000 mIU/mL 3-4 Weeks: 500-10,000 mIU/mL 4-5 Weeks:1000-50,000 mIU/mL 5-6 Weeks: 10,000-100,000 mIU/mL 6-8 Weeks: 15,000-200,000 mIU/mL 2-3 Months:10,000-100,000 mIU/mL Performed By: #### L 3100.8410, L4500.0100, L3410.2000, L801.2600 #### [facility] [address]. [place], [place], [id number] Laboratory - Chemistry and C hemistry - challengeOrdered By: Diana Soliman on 07-16-2024 HCG ( test) Ql (U) Positive [facility] Office Visit Reporton 2024 Office Visit Report [facility] [place] [address] OFFICE VISIT Date of Service: 07/16/24 MR#: [id number] Acct: [id number] Patient: JEFF RUSHING Rep #: [id number] : 1995 Provider: Dr. Diana Morton DO Age/Sex: 29/F Location: [facility] Status: Signed Intake Vital Signs 10/17/23 10:44 07/16/24 14:24 Height 5 ft 8 in 5 ft 8 in Weight: 235 lb 8 oz BMI 35.8 BP 116/76 Intake Visit Reasons: PNOB/Confirmation of Wire Stitcher Required: No Is patient in pain?: No [...] mg-folate no.1 1 mg-dha 300 mg capsule (PNV-Blissfield) cephalexin 500 mg capsule 500 mg PO [...] Quit 2021 (9) Anxiety: Status: Acute (10) Wtfsy-Cvkqlphwe-Fdb te syndrome: Status: Acute (11) at early [...] unspecified, unspecified trimester Culture, Urine 4 Weeks O09.90 - Supervision of high risk , [...] - Amenorrhea, unspecified 08/03/24 1508 Date Diana Monique Signature: Date (if applicable) CC: [facility] ALLIED HEALTHon 07-15-2024 ALLIED HEALTH HNO ID: [id number] Author: SIMRAN RICKS RDMS Service: Radiology Author [...] PATIENT PRESENTS WITH AN IMPLANTABLE OR ATTACHED MACHINE LAY OUT WORKER: No RADIOLOGY DEPARTMENT: Ultrasound PERIPHERAL IV DATA: Not applicable SIGNED BY: Simran Ricks RDMS July 15, 2024 2:30 PM Normal [facility] BETA HCG, QUANTITATIVE FOR Juan Diego Camacho 07-15-2024 HCG.beta subunit Qn 1851.0 m[IU]/mL High <5.0 [facility] Comment on above: Order Comment: Speci men Type: BLOOD SPECIMEN Ordering Facility: [facility] Address: [address] [place] [address] Result Comment: TI TITATIVE HCG NORMAL RANGES Weeks of Gestation (Weeks Since LMP) 3 Weeks (5.8-71.2 mIU/mL) 4 Weeks (9.5-750 mIU/mL) 5 Weeks (217-7138 mIU/mL) 6 Weeks (158-39948 mIU/mL) 7 Weeks (3697-256238 mIU/mL) 8 Weeks (77430-159256 mIU/mL) 9 Weeks (91015-110342 mIU/mL) 10 Weeks (53155-108100 mIU/mL) 12 Weeks (89461-271378 mIU/mL) Referenced to 4th IS of [facility] Performed By: #### H CGED, 04140-2 #### [facility] CLIA [id number] [address] [place] CBC W Auto Differential pane l (Bld)on 07-15-2024 Basophils (Bld) [#/Vol] 10*3/uL Normal <0.11 [facility] Comment on above: Order Comment: Speci men Type: BLOOD SPECIMEN Ordering Facility: [facility] Address: [address] [place] [address] Performed By: #### 5 7021-8 #### [facility] CLIA [id number] [address] [place] Basophils/100 WBC (Bld) 0.3 % Normal [facility] Comment on above: Order Comment: Speci men Type: BLOOD SPECIMEN Ordering Facility: [facility] Address: [address] [place] [address] Performed By: #### 5 7021-8 #### [facility] CLIA [id number] [address] [place] Differential cell count method Nom (Bld) Auto Normal [facility] Comment on above: Order Comment: Speci men Type: BLOOD SPECIMEN Ordering Facility: [facility] Address: [address] [place] [address] Performed By: #### 5 7021-8 #### [facility] CLIA [id number] [address] [place] [address] [place] Eosinophils (Bld) [#/Vol] 0.07 10*3/uL Normal <0.46 [facility] Comment on above: Order Comment: Speci men Type: BLOOD SPECIMEN Ordering Facility: [facility] Address: [address] [place] [address] Performed By: #### 5 7021-8 #### [facility] CLIA [id number] [address] Eosinophils/100 WBC (Bld) 0.9 % Normal [facility] Comment on above: Order Comment: Speci men Type: BLOOD SPECIMEN Ordering Facility: [facility] Address: [address] [place] [address] Performed By: #### 5 7021-8 #### [facility] CLIA [id number] [address] [place] Erythrocyte distribution width (RBC) [Ratio] 12.3 % Normal 11.5-15.0 [facility] Comment on above: Order Comment: Speci men Type: BLOOD SPECIMEN Ordering Facility: [facility] Address: [address] [place] [address] Performed By: #### 5 7021-8 #### [facility] CLIA [id number] [address] [place] Hematocrit (Bld) [Volume fraction] 41.5 % Normal 36.0-46.0 [facility] Comment on above: Order Comment: Speci men Type: BLOOD SPECIMEN Ordering Facility: [facility] Address: [address] [place] [address] Performed By: #### 5 7021-8 #### [facility] CLIA [id number] [address] [place] Hemoglobin (Bld) [Mass/Vol] 14.1 g/dL Normal 11.5-15.5 [facility] Comment on above: Order Comment: Speci men Type: BLOOD SPECIMEN Ordering Facility: [facility] Address: [address] [place] [address] Performed By: #### 5 7021-8 #### [facility] CLIA [id number] [address] [place] [address] [place] Immature granulocytes (Bld) [#/Vol] 10*3/uL Normal <0.10 [facility] Comment on above: Order Comment: Speci men Type: BLOOD SPECIMEN Ordering Facility: [facility] Address: [address] [place] [address] Performed By: #### 5 7021-8 #### [facility] CLIA [id number] [address] Immature granulocytes/100 WBC (Bld) 0.3 % Normal [facility] Comment on above: Order Comment: Speci men Type: BLOOD SPECIMEN Ordering Facility: [facility] Address: [address] [place] [address] Performed By: #### 5 7021-8 #### [facility] CLIA [id number] [address] [place] [address] [place] Lymphocytes (Bld) [#/Vol] 2.43 10*3/uL Normal 1.00-4.00 [facility] Comment on above: Order Comment: Speci men Type: BLOOD SPECIMEN Ordering Facility: [facility] Address: [address] [place] [address] Performed By: #### 5 7021-8 #### [facility] CLIA [id number] [address] [place] Lymphocytes/100 WBC (Bld) 32.8 % Normal [facility] Comment on above: Order Comment: Speci men Type: BLOOD SPECIMEN Ordering Facility: [facility] Address: [address] [place] [address] Performed By: #### 5 7021-8 #### [facility] CLIA [id number] [address] [place] [address] [place] MCH (RBC) [Entitic mass] 29.0 pg Normal 26.0-34.0 [facility] Comment on above: Order Comment: Speci men Type: BLOOD SPECIMEN Ordering Facility: [facility] Address: [address] [place] [address] Performed By: #### 5 7021-8 #### [facility] CLIA [id number] [address] [place] MCHC (RBC) [Mass/Vol] 34.0 g/dL Normal 30.5-36.0 [facility] Comment on above: Order Comment: Speci men Type: BLOOD SPECIMEN Ordering Facility: [facility] Address: [address] [place] [address] Performed By: #### 5 7021-8 #### [facility] CLIA [id number] [address] MCV (RBC) [Entitic vol] 85.2 fL Normal 80.0-100.0 [facility] Comment on above: Order Comment: Speci men Type: BLOOD SPECIMEN Ordering Facility: [facility] Address: [address] [place] [address] Performed By: #### 5 7021-8 #### [facility] CLIA [id number] [address] [place] Monocytes (Bld) [#/Vol] 0.39 10*3/uL Normal <0.87 [facility] Comment on above: Order Comment: Speci men Type: BLOOD SPECIMEN Ordering Facility: [facility] Address: [address] [place] [address] Performed By: #### 5 7021-8 #### [facility] CLIA [id number] [address] Monocytes/100 WBC (Bld) 5.3 % Normal [facility] Comment on above: Order Comment: Speci men Type: BLOOD SPECIMEN Ordering Facility: [facility] Address: [address] [place] [address] Performed By: #### 5 7021-8 #### [facility] CLIA [id number] [address] [place] [address] [place] Neutrophils (Bld) [#/Vol] 4.47 10*3/uL Normal 1.45-7.50 [facility] Comment on above: Order Comment: Speci men Type: BLOOD SPECIMEN Ordering Facility: [facility] Address: [address] [place] [address] Performed By: #### 5 7021-8 #### [facility] CLIA [id number] [address] [place] Neutrophils/100 WBC (Bld) 60.4 % Normal [facility] Comment on above: Order Comment: Speci men Type: BLOOD SPECIMEN Ordering Facility: [facility] Address: [address] [place] [address] Performed By: #### 5 7021-8 #### [facility] CLIA [id number] [address] [place] Nucleated RBC (Bld) [#/Vol] 10*3/uL Normal <0.01 [facility] Comment on above: Order Comment: Speci men Type: BLOOD SPECIMEN Ordering Facility: [facility] Address: [address] [place] [address] Performed By: #### 5 7021-8 #### [facility] CLIA [id number] [address] Nucleated RBC/100 WBC (Bld) [Ratio] 0.0 /100 WBC Normal [facility] Comment on above: Order Comment: Speci men Type: BLOOD SPECIMEN Ordering Facility: [facility] Address: [address] [place] [address] Performed By: #### 5 7021-8 #### [facility] CLIA [id number] [address] [place] [address] [place] Platelet mean volume (Bld) [Entitic vol] 11.7 fL Normal 9.0-12.7 [facility] Comment on above: Order Comment: Speci men Type: BLOOD SPECIMEN Ordering Facility: [facility] Address: [address] [place] [address] Performed By: #### 5 7021-8 #### [facility] CLIA [id number] [address] [place] [address] [place] Platelets (Bld) [#/Vol] 221 10*3/uL Normal 150-400 [facility] Comment on above: Order Comment: Speci men Type: BLOOD SPECIMEN Ordering Facility: [facility] Address: [address] [place] [address] Performed By: #### 5 7021-8 #### [facility] CLIA [id number] [address] [place] RBC (Bld) [#/Vol] 4.87 10*6/uL Normal 3.90-5.20 [facility] Comment on above: Order Comment: Speci men Type: BLOOD SPECIMEN Ordering Facility: [facility] Address: [address] [place] [address] Performed By: #### 5 7021-8 #### [facility] CLIA [id number] [address] WBC (Bld) [#/Vol] 7.40 10*3/uL Normal 3.70-11.00 [facility] Comment on above: Order Comment: Speci men Type: BLOOD SPECIMEN Ordering Facility: [facility] Address: [address] [place] [address] Performed By: #### 5 7021-8 #### [facility] CLIA [id number] [address] Comprehensive metabolic 2000 panelon 07-15-2024 Albumin [Mass/Vol] 4.2 g/dL Normal 3.9-4.9 [facility] Comment on above: Order Comment: Speci men Type: BLOOD SPECIMEN Ordering Facility: [facility] Address: [address] [place] [address] Performed By: #### H CGED, 39105-1 #### [facility] CLIA [id number] [address] ALP [Catalytic activity/Vol] 67 U/L Normal 34-123 [facility] Comment on above: Order Comment: Speci men Type: BLOOD SPECIMEN Ordering Facility: [facility] Address: [address] [place] [address] Performed By: #### H CGED, 92552-2 #### [facility] CLIA [id number] [address] [place] [address] [place] ALT [Catalytic activity/Vol] 28 U/L Normal 7-38 [facility] Comment on above: Order Comment: Speci men Type: BLOOD SPECIMEN Ordering Facility: [facility] Address: [address] [place] [address] Performed By: #### H GIACOMO, 77276-5 #### [facility] CLIA [id number] [address] [place] [address] [place] Anion gap [Moles/Vol] 12 mmol/L Normal 8-15 [facility] Comment on above: Order Comment: Speci men Type: BLOOD SPECIMEN Ordering Facility: [facility] Address: [address] [place] [address] Performed By: #### H CINDYED, 92998-7 #### [facility] CLIA [id number] [address] [place] AST [Catalytic activity/Vol] 22 U/L Normal 13-35 [facility] Comment on above: Order Comment: Speci men Type: BLOOD SPECIMEN Ordering Facility: [facility] Address: [address] [place] [address] Performed By: #### H GIACOMO, 68068-3 #### [facility] CLIA [id number] [address] [place] Bilirubin [Mass/Vol] 0.3 mg/dL Normal 0.2-1.3 [facility] Comment on above: Order Comment: Speci men Type: BLOOD SPECIMEN Ordering Facility: [facility] Address: [address] [place] [address] Performed By: #### H CGED, #### [facility] CLIA [id number] [address] [place] Calcium [Mass/Vol] 8.8 mg/dL Normal 8.5-10.2 [facility] Comment on above: Order Comment: Speci men Type: BLOOD SPECIMEN Ordering Facility: [facility] Address: [address] [place] [address] Performed By: #### H CINDYED, 27248-2 #### [facility] CLIA [id number] [address] [place] [address] [place] Chloride [Moles/Vol] 101 mmol/L Normal 98-107 [facility] Comment on above: Order Comment: Khadar dye Type: BLOOD SPECIMEN Ordering Facility: [facility] Address: [address] [place] [address] Performed By: #### H CGED, 13979-0 #### [facility] CLIA [id number] [address] [place] [address] [place] CO2 [Moles/Vol] 23 mmol/L Normal 22-30 [facility] Comment on above: Order Comment: Khadar yde Type: BLOOD SPECIMEN Ordering Facility: [facility] Address: [address] [place] [address] Performed By: #### H CGED, 20352-6 #### [facility] CLIA [id number] [address] STATES OF [facility] Creatinine [Mass/Vol] 0.52 mg/dL Low 0.58-0.96 [facility] Comment on above: Order Comment: Khadar dye Type: BLOOD SPECIMEN Ordering Facility: [facility] Address: [address] [place] [address] Performed By: #### H CGED, 74922-9 #### [facility] CLIA [id number] [address] Creatinine and Glomerular filtration rate.predicted panel (S/P/Bld) 131 mL/min/1.73m??? Normal >=60 [facility] Comment on above: Order Comment: Khadar dye Type: BLOOD SPECIMEN Ordering Facility: [facility] Address: [address] [place] [address] Result Comment: Thu mated Glomerular Filtration Rate [...] actual GFR. Performed By: #### H CGED, #### [facility] CLIA [id number] [address] [place] [address] [place] Glucose [Mass/Vol] 127 mg/dL High 74-99 [facility] Comment on above: Order Comment: Khadar dye Type: BLOOD SPECIMEN Ordering Facility: [facility] Address: [address] [place] [address] Result Comment: The [place] [employer] (ADA) provides guidance for cutoff [...] Standards of Medical Care in Diabetes 2016, [place] [employer]. Diabetes Care. 2016.39(Suppl 1). Performed By: #### H CGED, 68130-5 #### [facility] CLIA [id number] [address] [place] [address] [place] Potassium [Moles/Vol] 3.7 mmol/L Normal 3.7-5.1 [facility] Comment on above: Order Comment: Khadar dye Type: BLOOD SPECIMEN Ordering Facility: [facility] Address: [address] [place] [address] Performed By: #### H CGED, #### [facility] CLIA [id number] [address] [place] [address] [place] Protein [Mass/Vol] 6.9 g/dL Normal 6.3-8.0 [facility] Comment on above: Order Comment: Khadar dye Type: BLOOD SPECIMEN Ordering Facility: [facility] Address: [address] [place] [address] Performed By: #### H CGED, 24816-8 #### [facility] CLIA [id number] [address] [place] [address] [place] Sodium [Moles/Vol] 136 mmol/L Normal 136-144 [facility] Comment on above: Order Comment: Speci men Type: BLOOD SPECIMEN Ordering Facility: [facility] Address: [address] [place] [id number] Performed By: #### H CGED, 69490-7 #### [facility] CLIA [id number] 1000 [place], [place] [address] [place] [address] Urea nitrogen [Mass/Vol] 5 mg/dL Low 7-21 [facility] Comment on above: Order Comment: Speci men Type: BLOOD SPECIMEN Ordering Facility: [facility] Address: [address] [place] [id number] Performed By: #### H CGED, 61790-3 #### [facility] CLIA [id number] [address] ED NOTEon 07-15-2024 ED NOTE HNO ID: [id number] Author: ATIF RANDHAWA RN Service: ? Author Type: Registered Nurse Type: ED Notes Filed: 07/15/2024 15:32 Note Text: Ultrasound brought over cd disc. [facility] ED NOTE HNO ID: [id number] Author: ATIF RANDHAWA RN Service: ? Author Type: Registered Nurse Type: ED Notes Filed: 07/15/2024 15:30 Note Text: Called over and they are bring disc at ultrasound, twila over per flor diamond selector. Pt in rm 10. Work excuse provided to return tomorrow . [facility] ED NOTE HNO ID: [id number] Author: ATIF RANDHAWA RN Service: ? Author Type: Registered Nurse Type: ED Notes Filed: 07/15/2024 15:29 Note Text: Denies vag bleed or discharge. [facility] ED PROV NOTEon 07-15-2024 ED PROV NOTE HNO ID: [id number] Author: MEGHNA GARCIA MD Service: ? Author [...] the last 2 days. She is currently [id number]. She reports LMP May 2024 but thinks she ovulated a few weeks later than normal based on her testing. She has had no bleeding or discharge. No fevers or chills. Pain has been intermittent lasting a second or two sharp stabbing in nature and resolves spontaneously. Today it has been frequent and she has some intermittent throbbing. History provided by: Patient bingo clerk used: No History reviewed. No pertinent past [...] components: Clarity Slightly Cloudy (*) Clear Specific Brooks, Ur >=1.030 (*) 1.005 - 1.030 Bacteria [...] with findings of (more content not included)... [facility] ED Triage Noteon 07-15-2024 ED Triage Note HNO ID: [id number] Author: DOMENICO TORRES MD Service: ? Author [...] providers's notation for full HnP and MDM [facility] TYPE + SCREEN PRENATALon ABO O [facility] Comment on above: Order Comment: Speci men Type: BLOOD SPECIMEN Ordering Facility: [facility] Address: [address] [place] [address] Performed By: #### H CGED, 47385-9 #### [facility] CLIA [id number] [address] [place] [address] [place] Rh Nom (Bld) Positive [facility] Comment on above: Order Comment: Speci men Type: BLOOD SPECIMEN Ordering Facility: [facility] Address: [address] [place] [address] Performed By: #### H CGED, 32492-0 #### [facility] CLIA [id number] [address] [place] TYPE AND SCREEN EXPIRATION 07/18/2024 23:59 [facility] Comment on above: Order Comment: Speci men Type: BLOOD SPECIMEN Ordering Facility: [facility] Address: [facility] [place] [id number] Performed By: #### H [facility], [address]-4 #### [facility] CLIA [id number] [address] [place] [address] [place] US PREG TRANSABD <14 WKS LTD on 07-15-2024 US PREG TRANSABD <14 WKS LTD * * *Final Report* * * DATE OF EXAM: Jul 15 2024 2:35PM MDU 1035 - US PREG TRANSABD <14 WKS LTD / PROCEDURE REASON: Pelvic 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 Project Management Manager: PSCB Transcribe Date/Time: Jul 15 2024 2:38P Dictated by : PAPITO OWENS MD This examination was interpreted and the report reviewed and electronically signed by: PAPITO OWENS MD on Jul 15 2024 2:49PM EST [id number] Normal [facility] Urinalysis complete panel (U )on 07-15-2024 Bacteria LM.HPF (Urine sed) [#/Area] Few Abnormal None Seen [facility] Comment on above: Order Comment: Speci men Type: URINE SPECIMEN Ordering Facility: [facility] Address: [address] [place] [address] Performed By: #### 2 4356-8 #### [facility] CLIA [id number] [address] [place] [address] [place] Bilirubin Ql (U) Negative Normal Negative [facility] Comment on above: Order Comment: Speci men Type: URINE SPECIMEN Ordering Facility: [facility] Address: [address] [place] [address] Performed By: #### 2 4356-8 #### [facility] CLIA [id number] [address] Clarity (Unsp spec) Slightly Cloudy Abnormal Clear [facility] Comment on above: Order Comment: Speci men Type: URINE SPECIMEN Ordering Facility: [facility] Address: [address] [place] [address] Performed By: #### 2 4356-8 #### [facility] CLIA [id number] [address] [place] Color (U) Yellow Normal Yellow [facility] Comment on above: Order Comment: Speci men Type: URINE SPECIMEN Ordering Facility: [facility] Address: [address] [place] [address] Performed By: #### 2 4356-8 #### [facility] CLIA [id number] [address] Epithelial cells LM.HPF (Urine sed) [#/Area] Moderate Normal [facility] Comment on above: Order Comment: Speci men Type: URINE SPECIMEN Ordering Facility: [facility] Address: [address] [place] [address] Performed By: #### 2 4356-8 #### [facility] CLIA [id number] [address] [place] Glucose Test strip (U) [Mass/Vol] Negative Normal Negative [facility] Comment on above: Order Comment: Speci men Type: URINE SPECIMEN Ordering Facility: [facility] Address: [address] [place] [address] Performed By: #### 2 4356-8 #### [facility] CLIA [id number] [address] [place] [address] [place] Hemoglobin Ql (U) Negative Normal Negative [facility] Comment on above: Order Comment: Speci men Type: URINE SPECIMEN Ordering Facility: [facility] Address: [address] [place] [address] Performed By: #### 2 4356-8 #### [facility] CLIA [id number] [address] [place] [address] [place] Ketones Ql (U) Negative Normal Negative [facility] Comment on above: Order Comment: Speci men Type: URINE SPECIMEN Ordering Facility: [facility] Address: [address] [place] [address] Performed By: #### 2 4356-8 #### [facility] CLIA [id number] [address] [place] Leukocyte esterase Test strip Ql (U) Negative Normal Negative [facility] Comment on above: Order Comment: Speci men Type: URINE SPECIMEN Ordering Facility: [facility] Address: [address] [place] [address] Performed By: #### 2 4356-8 #### [facility] CLIA [id number] [address] [place] [address] [place] Nitrite Ql (U) Negative Normal Negative [facility] Comment on above: Order Comment: Speci men Type: URINE SPECIMEN Ordering Facility: [facility] Address: [address] [place] [address] Performed By: #### 2 4356-8 #### [facility] CLIA [id number] [address] [place] [address] [place] pH (U) 6.0 [pH] Normal 5.0-8.0 [facility] Comment on above: Order Comment: Speci men Type: URINE SPECIMEN Ordering Facility: [facility] Address: [address] [place] [address] Performed By: #### 2 4356-8 #### [facility] CLIA [id number] [address] [place] [address] [place] Protein (U) [Mass/Vol] Negative Normal Negative [facility] Comment on above: Order Comment: Speci men Type: URINE SPECIMEN Ordering Facility: [facility] Address: [address] [place] [address] Performed By: #### 2 4356-8 #### [facility] CLIA [id number] [address] RBC LM.HPF (Urine sed) [#/Area] 0-3 /HPF Normal 0-3 /HPF [facility] Comment on above: Order Comment: Speci men Type: URINE SPECIMEN Ordering Facility: [facility] Address: [address] [place] [address] Performed By: #### 2 4356-8 #### [facility] CLIA [id number] [address] [place] Specific gravity (U) [Rel density] >=1.030 High 1.005-1.030 [facility] Comment on above: Order Comment: Speci men Type: URINE SPECIMEN Ordering Facility: [facility] Address: [address] [place] [address] Performed By: #### 2 4356-8 #### [facility] CLIA [id number] [address] Urobilinogen Ql (U) 0.2 EU/dL Normal 0.2-1.0 EU/dL [facility] Comment on above: Order Comment: Speci men Type: URINE SPECIMEN Ordering Facility: [facility] Address: [address] [place] [address] Performed By: #### 2 4356-8 #### [facility] CLIA [id number] [address] WBC LM.HPF (Urine sed) [#/Area] 0-5 /HPF Normal 0-5 /HPF [facility] Comment on above: Order Comment: Speci men Type: URINE SPECIMEN Ordering Facility: [facility] Address: [address] [place] [address] Performed By: #### 2 4356-8 #### [facility] CLIA [id number] [address] [place] Serum human chorionic gonado tropin detection for pregnancyOrdered By: Aaliyah Borrego on 07-08-2024 HCG ( test) Ql 83 mIU/mL High <9 [facility] Comment on above: Gestational Age0.2-1 Week: 5-50 mIU/mL1-2 Weeks: 50-500 mIU/mL2-3 Weeks: 100-5000 mIU/mL3-4 Weeks: 500-10,000 mIU/mL4-5 Weeks:1000-50,000 mIU/mL5-6 Weeks: 10,000-100,000 mIU/mL6-8 Weeks: 15,000-200,000 mIU/mL2-3 Months:10,000-100,000 mIU/mL hCG Titer Quant., Serumon HCG QUANT. 83 mIU/mL High <9 non-preg [facility] Comment on above: Result Comment: Gest ational Age 0.2-1 Week: 5-50 mIU/mL 1-2 Weeks: 50-500 mIU/mL 2-3 Weeks: 100-5000 mIU/mL 3-4 Weeks: 500-10,000 mIU/mL 4-5 Weeks:1000-50,000 mIU/mL 5-6 Weeks: 10,000-100,000 mIU/mL 6-8 Weeks: 15,000-200,000 mIU/mL 2-3 Months:10,000-100,000 mIU/mL Performed By: #### L 3100.8410, L4500.0100, L3410.2000, L801.2600 #### [facility] [address] [place], [address] Serum human chorionic gonado tropin detection for pregnancyOrdered By: Aaliyah Borrego on 07-06-2024 HCG ( test) Ql 36 mIU/mL High <9 [facility] Comment on above: Gestational Age0.2-1 Week: 5-50 mIU/mL1-2 Weeks: 50-500 mIU/mL2-3 Weeks: 100-5000 mIU/mL3-4 Weeks: 500-10,000 mIU/mL4-5 Weeks:1000-50,000 mIU/mL5-6 Weeks: 10,000-100,000 mIU/mL6-8 Weeks: 15,000-200,000 mIU/mL2-3 Months:10,000-100,000 mIU/mL hCG Titer Quant., Serumon HCG QUANT. 36 mIU/mL High <9 non-preg [facility] Comment on above: Result Comment: Gest ational Age 0.2-1 Week: 5-50 mIU/mL 1-2 Weeks: 50-500 mIU/mL 2-3 Weeks: 100-5000 mIU/mL 3-4 Weeks: 500-10,000 mIU/mL 4-5 Weeks:1000-50,000 mIU/mL 5-6 Weeks: 10,000-100,000 mIU/mL 6-8 Weeks: 15,000-200,000 mIU/mL 2-3 Months:10,000-100,000 mIU/mL Performed By: #### L 3100.8410, L4500.0100, L3410.2000, L801.2600 #### [facility] [address] [place], [address] Ear Cerumen Removalon 2024 BIPIN Estrada 04/12/2024 9:40 AM Ear Cerumen Removal Date/Time: 04/12/2024 9:00 AM Performed by: BIPIN Estrada Authorized by: BIPIN Estrada [facility] Work Phone: [facility] Work Phone: HCG ( test) Ql (U)o n 04-12-2024 Interpretation and review of laboratory results Normal [facility] Work Phone: Preg Test, Ur Negative Negative [facility] Work Phone: [facility] Work Phone: POCT Covid-19 Rapid Antigeno n 04-12-2024 SARS-CoV-2 (COVID-19) Ag IA.rapid Ql (Resp) Positive Abnormal Presumptive negative test for SARS-CoV-2 (no antigen detected) [facility] Work Phone: POCT Influenza A/B manually resultedon 04-12-2024 Interpretation and review of laboratory results Normal [facility] Work Phone: POC Rapid Influenza A Negative Negative [facility] Work Phone: POC Rapid Influenza B Negative Negative [facility] Work Phone: [facility] Work Phone: SARS-CoV-2 (COVID-19) Ag IA. rapid Ql (Resp)on 04-12-2024 Interpretation and review of laboratory results Abnormal [facility] Work Phone: [facility] Work Phone: XR Chest 2 Viewson No active disease in the chest identified. MACRO: None Signed by: Altaf Grullon 04/12/2024 9:10 AM Dictation workstation: [id number] MMODAL Interpreted By: Altaf Grullon, STUDY: XR CHEST 2 VIEWS; 04/12/2024 9:06 am INDICATION: Signs/Symptoms:coug h. COMPARISON: None. ACCESSION NUMBER(S): [id number] ORDERING CLINICIAN: DOMENICO LONG FINDINGS: The lungs are clear without pleural effusion. Normal heart size, mediastinum, ya, and pulmonary vasculature. [facility] Altaf Grullon MD - 04/12/2024 Interpreted By: Altaf Grullon, STUDY: XR CHEST 2 VIEWS; 04/12/2024 9:06 am INDICATION: Signs/Symptoms:coug h. COMPARISON: None. ACCESSION NUMBER(S): [id number] ORDERING CLINICIAN: DOMENICO LONG FINDINGS: The lungs are clear without pleural effusion. Normal heart size, mediastinum, ya, and pulmonary vasculature. IMPRESSION: No active disease in the chest identified. MACRO: None Signed by: Altaf Grullon 04/12/2024 9:10 AM Dictation workstation: [id number] [facility] Work Phone: Radiology Study observation (narrative) [facility] Work Phone: XR Chest 2 ViewsOrdered By: Altaflola Grullon on 04-12-2024 [facility] Work Phone: PROGESTERONE 4317on 03-03- 24 PROGESTERONE 15.0 ng/mL Normal . [facility] Comment on above: Order Comment: N 21 day Result Comment: Foll icular phase 0.1 - 0.9 Luteal phase 1.8 - 23.9 Ovulation phase 0.1 - 12.0 First trimester 11.0 - 44.3 Second trimester 25.4 - 83.3 Third trimester 58.7 - 214.0 Postmenopausal 0.0 - 0.1 Performed at: [email or web address] [id number] Occupational Health Nurse Manager: Juan M Nielsen PhD, Phone: [phone] Performed By: #### L 286.7399 #### [facility] [address] [place], [address] PROGESTERONE 4317on 02-02- 24 PROGESTERONE 17.6 ng/mL Normal . [facility] Comment on above: Order Comment: 21 da y progesterone Result Comment: Foll icular phase 0.1 - 0.9 Luteal phase 1.8 - 23.9 Ovulation phase 0.1 - 12.0 First trimester 11.0 - 44.3 Second trimester 25.4 - 83.3 Third trimester 58.7 - 214.0 Postmenopausal 0.0 - 0.1 Performed at: [facility] [id number] Occupational Health Nurse Manager: Juan M Nielsen PhD, Phone: [phone] Performed By: #### L 3100.8410, L4500.0100, L3410.2000, L854.0644 #### [facility] [address] [place], [address] PROGESTERONE 4317on 01-02-20 24 PROGESTERONE 21.8 ng/mL Normal . [facility] Comment on above: Order Comment: N 21 day Result Comment: Foll icular phase 0.1 - 0.9 Luteal phase 1.8 - 23.9 Ovulation phase 0.1 - 12.0 First trimester 11.0 - 44.3 Second trimester 25.4 - 83.3 Third trimester 58.7 - 214.0 Postmenopausal 0.0 - 0.1 Performed at: [facility] [employer] [id number] Occupational Health Nurse Manager: Juan M Nielsen PhD, Phone: [phone] Performed By: #### L [id number] #### [facility] [address] [place], [place], [address] PROGESTERONE 4317on 12-06-19 24 PROGESTERONE 12.1 ng/mL Normal . [facility] Comment on above: Order Comment: N21 d ay progesterone Result Comment: Foll icular phase 0.1 - 0.9 Luteal phase 1.8 - 23.9 Ovulation phase 0.1 - 12.0 First trimester 11.0 - 44.3 Second trimester 25.4 - 83.3 Third trimester 58.7 - 214.0 Postmenopausal 0.0 - 0.1 Performed at: [facility] [id number] Occupational Health Nurse Manager: Juan M Nielsen PhD, Phone: [phone] Performed By: #### L 3100.8410, L4500.0100, L3410.1999, L802.2600 #### [facility] [address] [place] [place], [address] Anticardiolipin IgG, IgMon 0 11-03-2023 Anticardio.IgG 9 GPL U/mL Normal 0-14 [facility] Comment on above: Result Comment: Nega tive: <15 Indeterminate: 15 - 20 Low-Med Positive: >20 - 80 High Positive: >80 Performed By: #### L 3100.8410, L4500.0100, L3410.1999, L801.2600 #### [facility] [address] [place], [place], [address] Anticardio.IgM < 9 Normal 0-12 [facility] Comment on above: Result Comment: Nega tive: <13 Indeterminate: 13 - 20 Low-Med Positive: >20 - 80 High Positive: >80 Performed at: [facility] - [facility] [address] [id number] Occupational Health Nurse Manager: Cait Reyes MD, Phone: [phone] Performed at: - [facility] [address] [place] [id number] [place], [place] [id number] Occupational Health Nurse Manager: Juan M Nielsen PhD, Phone: [phone] Performed By: #### L 3100.8410, L4500.0100, L3410.1999, L801.2600 #### [facility] [address] [place], [place], [address] Beta-2 Glycoprot IgG, A, 11-03-2023 B2 GLYCO I IGA <9 Normal 0-25 [facility] Comment on above: Result Comment: Resu lt Units: GPI IgA units The reference interval reflects a 3SD or 99th percentile interval, which is thought to represent a potentially clinically significant result in accordance with the International Consensus Statement on the classification criteria for definitive antiphospholipid syndrome (APS). J Thromb Haem 2006;4:295-306. Performed By: #### L 3100.8410, L4500.0100, L3410.2000, L801.2600 #### [facility] [address] [place], [place], [address] B2 GLYCO I IGG <9 Normal 0-20 [facility] Comment on above: Result Comment: Resu lt Units: GPI IgG units The reference interval reflects a 3SD or 99th percentile interval, which is thought to represent a potentially clinically significant result in accordance with the International Consensus Statement on the classification criteria for definitive antiphospholipid syndrome (APS). J Thromb Haem 2006;4:295-306. Performed By: #### L 3100.8410, L4500.0100, L3410.2000, L801.2600 #### [facility] [address] [place], [place], [address] B2 GLYCO I IGM <9 Normal 0-32 [facility] Comment on above: Result Comment: Resu lt Units: GPI IgM units The reference interval reflects a 3SD or 99th percentile interval, which is thought to represent a potentially clinically significant result in accordance with the International Consensus Statement on the classification criteria for definitive antiphospholipid syndrome (APS). J Thromb Haem 2006;4:295-306. Performed By: #### L 3100.8410, L4500.0100, L3410.2000, L801.2600 #### [facility] [address] [place], [address] Lupus Anticoagulant Compon 0 - aPTT Coag (Bld) [Time] 39.5 s Normal 0.0-43.5 [facility] Comment on above: Performed By: #### L 3100.8410, L4500.0100, L3410.2000, L801.2600 #### [facility] [address] [place], [address] DILUTE PT (dPT) 31.8 sec Normal 0.0-47.6 [facility] Comment on above: Performed By: #### L 3100.8410, L4500.0100, L3410.2000, L801.2600 #### [facility] [address] [place], [address] dPT Conf. Ratio 1.20 Ratio Normal 0.00-1.34 [facility] Comment on above: Performed By: #### L 3100.8410, L4500.0100, L3410.2000, L801.2600 #### [facility] [address] [place], [address] DRVVT 43.5 sec Normal 0.0-47.0 [facility] Comment on above: Performed By: #### L 3100.8410, L4500.0100, L3410.2000, L801.2600 #### [facility] [address] [place], [address] Interpretation Comment: Normal . [facility] Comment on above: Result Comment: No l upus anticoagulant was detected. Performed By: #### L 3100.8410, L4500.0100, L3410.2000, L801.2600 #### [facility] [address] [place], [address] THROMBIN TIME 18.6 sec Normal 0.0-23.0 [facility] Comment on above: Performed By: #### L 3100.8410, L4500.0100, L3410.2000, L801.2600 #### [facility] [address] [place], [address] PROGESTERONE 4317on 10-31- 24 PROGESTERONE 0.4 ng/mL Normal . [facility] Comment on above: Order Comment: N day [id number] Result Comment: Foll icular phase 0.1 - 0.9 Luteal phase 1.8 - 23.9 Ovulation phase 0.1 - 12.0 First trimester 11.0 - 44.3 Second trimester 25.4 - 83.3 Third trimester 58.7 - 214.0 Postmenopausal 0.0 - 0.1 Performed at: [facility] [address] [id number] Occupational Health Nurse Manager: Juan M Nielsen PhD, Phone: [phone] Performed By: #### L 3100.8410, L4500.0100, L3410.2000, L801.2600 #### [facility] [address] [place], [place], [address] [employer] Office Visit Reporton 10-17-2023 Machine I Engraver Office Visit Report [facility] [address] [place], [place] [address] OFFICE VISIT Date of Service: 10/17/23 MR#: [id number] Acct: [id number] Name: JEFF RUSHING Rep #: [id number] : 1995 Provider: SALLIE Chamberlain ams Age/Sex: 28/F Location: [facility] Status: Signed Intake Vital Signs 07/25/23 09:56 10/17/23 10:44 10/17/23 10:44 Height 5 ft 8 in 5 ft 8 in 5 ft 8 in Weight: 222 lb 8 oz BMI 33.8 BP 128/83 H Intake Visit Reasons: discuss starting Clomid Wire Stitcher Required: No Is patient in pain?: No Allergies Iodinated Contrast Media Allergy (Mild, Verified 10/17/23 10:43) Hives Medications ???Medication ???Instructions ???Recorded ???Confirmed ???Type NK 07/02/23 10/17/23 History Post menopausal: No Patient : No : No [facility] Medical History Cyst of spleen Surgical History [place] teeth removed Family History Grandmother Throat cancer Grandfather Lung cancer Father Diabetes Hypertension Social History adopted: No household members: significant other current occupational status: employed 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 trachomatis rRNA PETER+probe Ql (Unsp spec) Negative Negative [facility] Gram stain for investigation of transfusion reactionOrdered By: Esperanza Dotson on 07-02-2023 Microscopic observation Gram stain Nom (Unsp spec) [facility] - Microbiology an d Antimicrobial susceptibilityOrdered By: Esperanza Dotson on 07-02-2023 N. gonorrhoeae DNA PETER+probe Ql (Unsp spec) Negative Negative [facility] Comment on above: Performed at: [address] [id number] Director: Jada Mayberry MD, Phone: [phone] No Panel InformationOrdered By: Esperanza Dotson on 07-02-2023 Genital Culture [facility] No Panel Informationon 07-01 POC Bacterial Vaginitis (Rapid) Negative [facility] POC Trich[facility] (Rapid) [facility]23 Order Number [id number] [facility] ([place]) Comment on above: Performed By: #### 9 [address] #### [facility] [address] Test Name echinoccus granulosis ab [facility] ([place]) Comment on above: Performed By: #### 9 [address] #### [facility] [address] Test Source see report Replaced by [facility]) Comment on above: Performed By: #### 9 [address] #### [facility] [place] [address] [facility] Test Result COMMENT Replaced by [facility]) Comment on above: Result Comment: Test Ordered: [id number] Echinococcus Antibody Echinococcus Antibody Equivocal Reference Range: Negative Performed At: [facility] [address] [place], [place] [id number] Gia Mcgowan PhD Ph:[phone] Performed At: [facility] [id number] Eric Chavira MD Ph:[phone] Performed By: #### 9 [address] #### [facility] [place] [address] .Auto Diffon 02-15-2023 Basophil, Absolute 0.0 10 3/mcL Normal 0.0-0.2 [facility] ([place]) Comment on above: Performed By: #### A YAN WALLS, ADIFF, GFR, CBC, LIP, CMP #### [address] [address] Basophils/100 WBC (Bld) 0.3 % Normal 0.0-2.5 A [facility] ([place]) Comment on above: Performed By: #### A YAN WALLS, ADIFF, GFR, CBC, LIP, CMP #### [address] [address] Eosinophil, Absolute 0.0 10 3/mcL Normal 0.0-0.4 [facility] ([place]) Comment on above: Performed By: #### A YAN WALLS, ADIFF, GFR, CBC, LIP, CMP #### [address] [address] Eosinophils/100 WBC (Bld) 0.7 % Normal 0.0-7.0 [facility] ([place]) Comment on above: Performed By: #### A YAN WALLS, ADIFF, GFR, CBC, LIP, CMP #### [address] [address] Lymphocyte, Absolute 2.1 10 3/mcL Normal 0.8-3.9 [facility] ([place]) Comment on above: Performed By: #### A YAN WALLS, ADIFF, GFR, CBC, LIP, CMP #### [address] [address] Lymphocytes/100 WBC (Bld) 29.5 % Normal 10.0-50.0 [facility] ([place]) Comment on above: Performed By: #### A YAN WALLS, ADIFF, GFR, CBC, LIP, CMP #### [address] [address] Monocyte, Absolute 0.4 10 3/mcL Normal 0.2-1.0 [facility] ([place]) Comment on above: Performed By: #### A YAN WALLS, ADIFF, GFR, CBC, LIP, CMP #### [address] [address] Monocytes/100 WBC (Bld) 5.5 % Normal 1.7-13.0 A [facility] ([place]) Comment on above: Performed By: #### A YAN WALLS, ADIFF, GFR, CBC, LIP, CMP #### [address] [address] Neutrophils/100 WBC (Bld) 64.0 % Normal 37.0-80.0 [facility] ([place]) Comment on above: Performed By: #### A YAN WALLS, SCOTTIFF, GFR, CBC, LIP, CMP #### [address] [address] .GFRon 02-15-2023 GFR 149 ml/min/1.73sqm Normal [facility] ([place]) Comment on above: Result Comment: GFR [...] ADIFF, GFR, CBC, LIP, CMP #### [address] [address] GFR Non- 123 ml/min/1.73sqm Normal [facility] ([place]) Comment on above: Result Comment: GFR Population [...] WALLS, ADIFF, GFR, CBC, LIP, CMP #### [place] [address] .MDWon 02-15-2023 Monocyte Distribution Width 18.17 Normal 0.00-20.00 [facility] ([place]) Comment on above: Result Comment: For ED adult patients suspected of sepsis, MDW<=20.0 does not rule out sepsis or risk of sepsis Performed By: #### A YAN WALLS, ADIFF, GFR, CBC, LIP, CMP #### [place] [address] .NEUABSon 02-15-2023 Neutrophil, Absolute 4.5 10 3/mcL Normal 2.9-6.2 [facility] ([place]) Comment on above: Performed By: #### A YAN WALLS, ADIFF, GFR, CBC, LIP, CMP #### [place] [address] .Urinalysis Microscopic (AO) on 02-15-2023 UA Amorphus Trace Normal [facility] ([place]) Comment on above: Performed By: #### 9 [address] #### [place] [address] UA Bacteria Trace Abnormal [facility] ([place]) Comment on above: Performed By: #### 9 [address] #### [place] [address] UA Mucous 4+ /hpf Normal [facility] ([place]) Comment on above: Performed By: #### 9 [address] #### [place] [address] UA RBC None Seen Normal None Seen [facility] ([place]) Comment on above: Performed By: #### 9 [address] #### [address] [address] UA Squam Epithelial 5-10 Abnormal None Seen [facility] ([place]) Comment on above: Performed By: #### 9 [address] #### [address] [address] UA WBC 0-5 Abnormal None Seen [facility] ([place]) Comment on above: Performed By: #### 9 [address] #### [address] [address] CBCon 02-15-2023 Erythrocyte distribution width (RBC) [Ratio] 12.6 % Normal 11.5-14.5 [facility] ([place]) Comment on above: Performed By: #### A YAN WALLS, ANIA, GFR, CBC, LIP, CMP #### [address] [address] Hematocrit (Bld) [Volume fraction] 45.3 % Normal 37.0-47.0 [facility] ([place]) Comment on above: Performed By: #### A YAN WALLS, ANIA, GFR, CBC, LIP, CMP #### [address] [address] Hgb 15.3 G/dL Normal 12.0-16.0 [facility] ([place]) Comment on above: Performed By: #### A YAN WALLS, ANIA, GFR, CBC, LIP, CMP #### [address] [address] MCH (RBC) [Entitic mass] 28.9 pg Normal 27.0-31.2 [facility] ([place]) Comment on above: Performed By: #### A YAN WALLS, ANIA, GFR, CBC, LIP, CMP #### [address] [address] MCHC 33.7 G/dL Normal 33.0-37.0 [facility] ([place]) Comment on above: Performed By: #### A YAN WALLS, SCOTTIFF, GFR, CBC, LIP, CMP #### [address] [address] MCV (RBC) [Entitic vol] 85.7 fL Normal 80.0-94.0 A [facility] ([place]) Comment on above: Performed By: #### A YAN WALLS, ANIA, GFR, CBC, LIP, CMP #### [address] [address] Platelet 250 10 3/mcL Normal 130-400 [facility] ([place]) Comment on above: Performed By: #### A YAN WALLS, ANIA, GFR, CBC, LIP, CMP #### [address] [address] Platelet mean volume (Bld) [Entitic vol] 9.8 fL Normal 7.4-10.4 [facility] ([place]) Comment on above: Performed By: #### A YAN WALLS, ANIA, GFR, CBC, LIP, CMP #### [address] [address] RBC 5.29 10 6/mcL Normal 4.20-5.40 [facility] ([place]) Comment on above: Performed By: #### A YAN WALLS, ANIA, GFR, CBC, LIP, CMP #### [address] [address] WBC 7.0 10 3/mcL Normal 4.6-10.8 [facility] ([place]) Comment on above: Performed By: #### A YAN WALLS, ANIA, GFR, CBC, LIP, CMP #### [address] [address] CMPon 02-15-2023 Albumin Level 4.5 G/dL Normal 3.5-5.0 [facility] ([place]) Comment on above: Performed By: #### A YAN WALLS, ANIA, GFR, CBC, LIP, CMP #### [address] [address] Albumin/Globulin [Mass ratio] 1.2 {ratio} Normal 1.1-2.5 [facility] ([place]) Comment on above: Performed By: #### A YAN WALLS, SCOTTIFF, GFR, CBC, LIP, CMP #### [address] [address] ALP [Catalytic activity/Vol] 101 U/L Normal 40-135 [facility] ([place]) Comment on above: Performed By: #### A YAN WALLS, ADIFF, GFR, CBC, LIP, CMP #### [address] [address] ALT [Catalytic activity/Vol] 29 U/L Normal 14-59 [facility] ([place]) Comment on above: Performed By: #### A YAN WALLS, SCOTTIFF, GFR, CBC, LIP, CMP #### [address] [address] AST [Catalytic activity/Vol] 15 U/L Normal 10-40 [facility] ([place]) Comment on above: Performed By: #### A YAN WALLS, SCOTTIFF, GFR, CBC, LIP, CMP #### [address] [address] Bili Total 0.6 mg/dL Normal 0.2-1.0 [facility] ([place]) Comment on above: Result Comment: Use of this assay is not recommended for patients undergoing treatment with eltrombopag due to the potential for falsely elevated results. Performed By: #### A YAN WALLS, SCOTTIFF, GFR, CBC, LIP, CMP #### [address] [address] BUN/Creatinine Ratio 12 ratio Normal 7-27 [facility] ([place]) Comment on above: Performed By: #### A YAN WALLS, SCOTTIFF, GFR, CBC, LIP, CMP #### [address] [address] Calcium [Mass/Vol] 10.0 mg/dL Normal 8.4-10.2 [facility] ([place]) Comment on above: Performed By: #### A YAN WALLS, ADIFF, GFR, CBC, LIP, CMP #### [address] [address] Chloride [Moles/Vol] 98 mmol/L Normal 98-107 [facility] ([place]) Comment on above: Performed By: #### A YAN WALLS, ANIA, GFR, CBC, LIP, CMP #### [place] [address] CO2 [Moles/Vol] 25 mmol/L Normal 22-29 [facility] ([place]) Comment on above: Performed By: #### A YAN WALLS, SCOTTIFF, GFR, CBC, LIP, CMP #### [place] [address] Creatinine [Mass/Vol] 0.59 mg/dL Normal 0.55-1.02 [facility] ([place]) Comment on above: Performed By: #### A YAN WALLS, ANIA, GFR, CBC, LIP, CMP #### [place] [address] Electrolyte Balance 11.0 mEq/L Normal 4.0-15.0 [facility] ([place]) Comment on above: Performed By: #### A YAN WALLS, ANIA, GFR, CBC, LIP, CMP #### [place] [address] Globulin 3.8 G/dL Normal [facility] ([place]) Comment on above: Performed By: #### A YAN WALLS, ANIA, GFR, CBC, LIP, CMP #### [place] [address] Glucose [Mass/Vol] 101 mg/dL Normal 70-105 [facility] ([place]) Comment on above: Performed By: #### A YAN WALLS, SCOTTIFF, GFR, CBC, LIP, CMP #### [place] [address] Potassium [Moles/Vol] 3.8 mmol/L Normal 3.5-5.1 [facility] ([place] Comment on above: Performed By: #### A YAN WALLS, SCOTTIFF, GFR, CBC, LIP, CMP #### [place] [address] Sodium [Moles/Vol] 134 mmol/L Low 136-145 [facility] ([place]) Comment on above: Performed By: #### A YAN WALLS, ADIFF, GFR, CBC, LIP, CMP #### [facility] [address] [place], [place] [address] Total Protein 8.3 G/dL High 6.4-8.2 [facility] ([place]) Comment on above: Performed By: #### A YAN WALLS, ADIFF, GFR, CBC, LIP, CMP #### [facility] [address] [place], [place] [address] Urea nitrogen [Mass/Vol] 7 mg/dL Normal 7-18 [facility] ([place]) Comment on above: Performed By: #### A YAN WALLS, ANIA, GFR, CBC, LIP, CMP #### [place] [address] [place], [place] [address] CT ABD/PELVIS W/ IV CONTRAST ONLYon 02-15-2023 CT ABD/PELVIS W/ IV CONTRAST ONLY ORIGINAL EXAMINATION: CT OF THE ABDOMEN AND PELVIS WITH XTWAELPE16/9/2023 1:[address] ABDOMEN/PELVIS WITH CONTRAST TECHNIQUE: [...] Date: 02/15/2023 1:35:36 PM Ordering Provider: AUGIE HANNAH [facility] ([place]) LABORATORYOrdered By: SYSTEM SYSTEM on 02-15-2023 Albumin [...] 02-15-2023 Lipase Level 18 U/L Normal 16-77 [facility] ([place]) Comment on above: Performed By: #### A YAN WALLS, ADIFF, GFR, CBC, LIP, CMP #### [address] [address] PREGUon 02-15-2023 HCG ( test) Ql (U) Negative Normal [facility] ([place]) Comment on above: Performed By: #### P REGU, UA, UAMICAO #### [address] [address] test (u) int Not detected Invalid Interpretation Code [facility] ([place]) Comment on above: Performed By: #### P REGU, UA, UAMICAO #### [address] [address] UAon 02-15-2023 Color (U) Yellow Normal [facility] ([place]) Comment on above: Performed By: #### 9 [address] #### [address] [address] Glucose (U) [Mass/Vol] Negative Normal Negative [facility] ([place]) Comment on above: Performed By: #### 9 [address] #### [address] [address] Ketones Ql (U) Negative Normal Negative [facility] ([place]) Comment on above: Performed By: #### 9 [address] #### [address] [address] UA Appear Cloudy Abnormal Clear [facility] ([place]) Comment on above: Performed By: #### 9 [address] #### Porfirio Guerrero[address] [address] UA Blood Negative Normal Negative [facility] ([place]) Comment on above: Performed By: #### 9 [address] #### Porfirio Van [address] [place] [address] UA Leuk Est Negative Normal Negative [facility] ([place]) Comment on above: Performed By: #### 9 [address] #### Porfirio Guerrero[address] [address] UA Nitrite Negative Normal Negative [facility] ([place]) Comment on above: Performed By: #### 9 35[address] #### Porfirio Guerrero[address] [address] UA pH 6.0 Normal 5.0 - 8.0 [facility] ([place]) Comment on above: Performed By: #### 9 [address] #### Porfirio [address] [address] UA Protein Negative Normal Negative [facility] ([place]) Comment on above: Performed By: #### 9 18125 #### Porfirio [address] [address] UA Spec Grav 1.025 Normal 1.015-1.025 [facility] ([place]) Comment on above: Performed By: #### 9 [address] #### Porfirio [address] [address] UA Specimen Type Clean Catch Normal [facility] ([place]) Comment on above: Performed By: #### 9 [address] #### Porfirio Guerrero[address] [address] UA Urobilinogen 0.2 E.U./dL Normal 0.2-1.0 [facility] ([place]) Comment on above: Performed By: #### 9 [address] #### Porfirio [address] [address] Urobilinogen (U) [Mass/Vol] Negative Normal Negative [facility] ([place]) Comment on above: Performed By: #### 9 [address] #### [facility] [address] [place], [place] [address] XR CHEST 2 VIEWSon 3 XR CHEST [...] 02/15/2023 1:26:39 PM Ordering Provider: OSCAR ZAMBRANO [facility] ([place]) DIGIT OF FOOT LEFT 5THon DIGIT OF [...] articular extension to the PIP joint. Normal [facility] LUMBAR WITH OBLIQUESon 05-30 LUMBAR WITH [...] acute osseous abnormality. 2. Normal alignment. Normal [facility] LUMBAR WITH OBLIQUESon 05-01 LUMBAR WITH [...] represent constipation in proper clinical context. Normal [facility] BACTERIAL VAGINOSIS AMPLIFIC ATIONon 02-06-2022 Bacterial Vaginosis Amplification High () [facility] Bact Vag Ampon 02-06-2022 Bact Vag Amp High () [facility] Comment on above: Result Comment: INFC E Result: Positive for bacterial vaginosis INFCE Result Reference Range: Negative for bacterial INFCE Result Reference Range: vaginosis INFCE Result Abnormal Flag: A Test Performed By: [facility] [address] [place] [address] Campus Receptionist: Sathish Gillespie III, M.D. C. trachomatis+N. gonorrhoea e DNA PETER+probe Ql (Unsp spec)on 02-06-2022 Chlamydia Amplification C [facility] CNPNon 02-06-2022 CNPN Telephone (UCUPNO) ---- JEFF RUSHING ([id number]) 1995 F Date Time Provider Department 02/06/22 [facility] During your visit today, we recorded the following information about you: Isi Martell APRN.GIZZARD PULLER 02/06/2022 11:31 AM Signed Please notify patient [...] then. Xenia verbalized understanding. Isi Martell APRN. GIZZARD PULLER Allergies As of Date: 02/06/2022 Noted Allergy [...] Encounter Status:Closed by ISI MAR[facility]LL on 02/06/22 [facility] JEFF RUSHING ([id number]) 1995 F Date Time Provider Department 02/06/22 ISI MARTELL During your visit today, we recorded the following information about you: Isi Martell APRN.IOANA 02/06/2022 3:54 PM Signed Negative for Chlamydia and Gonorrhea. May stop Doxycyline. Make sure to order picker/assembler and take Flagyl as directed. Robin Whitt 02/07/2022 10:30 AM Signed Left message for patient to return phone call. Kendy Kam RT(R) 02/08/2022 10:42 AM Signed Message left to call back. RT Augustine(R) Mirella Ram MA 02/09/2022 8:40 AM Signed Patient called in and was advised of results. She was also advised to stop the doxycycline and order picker/assembler the Flagyl. Mirella Ram MA Allergies As [...] ISI MARTELL on 02/06/[address] [facility] GC/Jenifer Ampon 02-06-2022 Chlamydia Amp [facility] Comment on above: Result Comment: INFC E Result: Negative for Chlamydia trachomatis by INFCE Result: amplification INFCE Result Reference Range: Negative for Chlamydia INFCE Result Reference Range: trachomatis by amplificaton SOURCE: GENITAL Test Performed By: [facility] [address] [place] [address] Campus Receptionist: Sathish Gillespie III, M.D. Amplificatin [facility] Comment on above: Result Comment: INFC E Result: Negative for Neisseria gonorrhoeae by INFCE Result: amplification INFCE Result Reference Range: Negative for Neisseria INFCE Result Reference Range: gonorrhoeae by amplification T VAGINALIS AMPLIFICATIONon 02-06-2022 T. vaginalis Amplif [facility] URINE CULTUREon 02-06-2022 Bacteria identified Cx Nom (U) XXX [facility] BACTERIAL VAGINOSIS AMPLIFIC ATIONon 02-05-2022 Lactobacillus crispatus+gasseri+jense delmy + Gardnerella vaginalis + Atopobium vaginae rRNA PETER+probe Ql (Vag fld) Positive Abnormal Negative for bacterial vaginosis [facility] Comment on above: Order Comment: Speci men Type: SWAB Ordering Facility: [facility] Address: [address] [place] [address] Performed By: #### T RVAMP, BVAMP #### [facility] CLIA [id number] [address] [place] [address] [place] Bacteria Ur Culton 2 Bacteria identified Cx Nom (U) ORGANISM ID: 1 <10,000 CFU/ml Mixed microbiota Streptococcus agalactiae (Group B streptococcus) was identified in this specimen, which is clinically relevant if the individual is . Insignificant colony count. No further workup. Normal [facility] Comment on above: Performed By: #### 6 30-4 #### [facility] CLIA [id number] [address] [place] [address] [place] C. trachomatis+N. gonorrhoea e DNA PETER+probe Ql (Unsp spec)on 02-05-2022 C. trachomatis DNA PETER+probe Ql (Unsp spec) Negative Normal Negative for Chlamydia trachomatis by amplificaton [facility] Comment on above: Order Comment: Speci men Type: SWAB Ordering Facility: [facility] Address: [address] [place] [address] Performed By: #### 3 6902-5 #### [facility] CLIA [id number] [address] [place] [address] [place] N. gonorrhoeae DNA PETER+probe Ql (Unsp spec) Negative Normal Negative for Neisseria gonorrhoeae by amplification [facility] Comment on above: Order Comment: Speci men Type: SWAB Ordering Facility: [facility] Address: [address] [place] [address] Performed By: #### 3 6902-5 #### [facility] CLIA [id number] [address] [place] [address] [place] T VAGINALIS AMPLIFICATIONon 02-05-2022 T. vaginalis DNA PETER+probe Ql (Unsp spec) Negative Normal Negative for Trichomonas vaginalis by amplification [facility] Comment on above: Order Comment: Speci men Type: MICROBIAL ISOLATE Ordering Facility: [facility] Address: [address] [place] [address] Performed By: #### T RVAMP, BVAMP #### [facility] CLIA [id number] [address] [place] [address] [place] [address] [place] Trich Vaginalison 02-05-2022 Trich Vaginalis Normal [facility] Comment on above: Result Comment: INFC E Result: Negative for Trichomonas vaginalis by INFCE Result: amplification INFCE Result Reference Range: Negative for Trichomonas INFCE Result Reference Range: vaginalis by amplification SOURCE: GENITAL Test Performed By: [facility] [address] [place] [address] Campus Receptionist: Agnes Rhodes III 2022 ASHLEY Office Visit ([place]UPNO) ---- JEFF RUSHING ([id number]) 1995 F Date Time Provider Department 02/04/22 10:20 AM ISI MARTELL ERA During your visit today, we recorded the following information about you: Temperature Pulse Blood pressure Weight 97.9 degrees 49/minute 140/89 102.5 kg Last Period 01/29/22 Isi Martell APRN.GIZZARD PULLER 2022 12:37 PM Signed 2022 Subjective Chief [...] Exam Vitals reviewed. Exam conducted with a cargo vessel stewardess present. Constitutional: General: She is not in acute distress. Appearance: Normal appearance. She is not ill-appearing, toxic-appearing or diaphoretic. HENT: Head: Normocephalic and atraumatic. Genitourinary: Exam position: Lithotomy position. Vagina: Vaginal discharge present. Cervix: Discharge present. 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, X-ray chemical research technician, was in room during physical examination [...] Diagnosis:Vaginal discharge [N89.8] Order(s):HCG QUAL UR B/O [[id number]] Order #: [id number] UA DIP B/O [[id number]] Order #: [id number] URINE CULTURE [SQURCUL] Ord (more content not included)... Normal [facility] HCG QUAL UR B/Oon 2022 status Negative neg - pos [facility] Quality Check Yes [facility] UA DIP B/Oon 2022 Bilirubin, Urine Negative Neg [facility] Color/Appearance YELLOW/CLEAR [facility] Glucose Ql (U) Negative Neg mg/dL [facility] Hemoglobin/Blood,Ur Negative Neg [facility] Ketones Ql (U) Negative Neg [facility] Leukocytes Negative Neg [facility] Nitrite Ql (U) Negative Neg [facility] pH (U) 5.5 [pH] 4.5 - 8.0 [facility] Protein.monoclonal (U) [Mass/Vol] Negative Neg mg/dL [facility] Specific Brooks, Ur 1.030 1.005 - 1.030 C [facility] Urobilinogen, Urine 0.2 EU Normal ( <1.1) EU [facility] Urine Cultureon 2022 Bacteria identified Cx Nom (U) CULTURE, URINE MIXED MICROBIOTA <10,000 CFU/ml Mixed microbiota Streptococcus agalactiae (Group B streptococcus) was identified in this specimen, which is clinically relevant if the individual is . Insignificant colony count. No further workup. Urine, Midstream clean catch SOURCE: URINE Test Performed By: [facility] [address] [place] [address] Campus Receptionist: Sathish Gillespie III, M.D. See Below Normal [facility] CBC W Auto Differential pane l (Bld)on 09-12-2021 Basophils (Bld) [#/Vol] 0.01 10*3/uL Normal <=0.70 [facility] Comment on above: Performed By: #### 5 7021-8 #### [place] [address] [employer] - Mary PORTILLOIA [id number] Basophils/100 WBC (Bld) 0.2 % Normal <=2.0 [facility] Comment on above: Performed By: #### 5 7021-8 #### [place] [address] [employer] Mary Parra CLIA [id number] Eosinophils (Bld) [#/Vol] 0.06 10*3/uL Normal <=0.70 [facility] Comment on above: Performed By: #### 5 7021-8 #### [place] [address] [employer] [facility] PORTILLOIA [id number] Eosinophils/100 WBC (Bld) 0.9 % Normal <=10.0 [facility] Comment on above: Performed By: #### 5 7021-8 #### [facility] [address] [facility]. [place] [address] [employer] PORTILLOIA [id number] Erythrocyte distribution width (RBC) [Entitic vol] 38.1 fL Normal 36.4-46.3 [facility] Comment on above: Performed By: #### 5 7021-8 #### [address] [place] [address] [employer] Mary PORTILLOIA [id number] Hematocrit (Bld) [Volume fraction] 41.2 % Normal 37.0-47.0 [facility] Comment on above: Performed By: #### 5 7021-8 #### [address] [place] [address] [employer] - Mary PORTILLOIA [id number] Hemoglobin (Bld) [Mass/Vol] 14.1 g/dL Normal 12.0-16.0 [facility] Comment on above: Performed By: #### 5 7021-8 #### [place] [address] [facility]. [place] [address] [employer] PORTILLOIA [id number] Immature granulocytes (Bld) [#/Vol] 0.03 10*3/uL Normal <=0.10 [facility] Comment on above: Performed By: #### 5 7021-8 #### [address] [place] [address] [employer] - Mary PORTILLOIA [id number] Immature granulocytes/100 WBC (Bld) 0.50 % Normal <=1.50 [facility] Comment on above: Performed By: #### 5 7021-8 #### [address] [place] [address] [employer] PORTILLOIA [id number] Lymphocytes (Bld) [#/Vol] 2.28 10*3/uL Normal 1.20-3.40 [facility] Comment on above: Performed By: #### 5 7021-8 #### [facility] [address] [place] [address] [employer] - Mary GAUTAM [id number] Lymphocytes/100 WBC (Bld) 35.4 % Normal 20.0-40.0 [facility] Comment on above: Performed By: #### 5 7021-8 #### [facility] [address] [place] [address] [employer] - Mary GAUTAM [id number] MCH (RBC) [Entitic mass] 29.3 pg Normal 27.0-31.0 [facility] Comment on above: Performed By: #### 5 7021-8 #### [place] [address] [place] [address] [employer] - Mary GAUTAM [id number] MCHC (RBC) [Mass/Vol] 34.2 g/dL Normal 32.0-36.0 [facility] Comment on above: Performed By: #### 5 7021-8 #### [place] [address] [place] [address] [employer] - Mary GAUTAM [id number] MCV (RBC) [Entitic vol] 85.7 fL Normal 80.0-100.0 [facility] Comment on above: Performed By: #### 5 7021-8 #### [place] [address] [place] [address] [employer] - Mary GAUTAM [id number] Monocytes (Bld) [#/Vol] 0.36 10*3/uL Normal 0.10-0.60 [facility] Comment on above: Performed By: #### 5 7021-8 #### [place] [address] [place] [address] [employer] - Mary GAUTAM [id number] Monocytes/100 WBC (Bld) 5.6 % Normal <=8.0 [facility] Comment on above: Performed By: #### 5 7021-8 #### [place] [address] [place] [address] [employer] - Mary GAUTAM [id number] Neutrophils (Bld) [#/Vol] 3.70 10*3/uL Normal 1.40-6.50 [facility] Comment on above: Performed By: #### 5 7021-8 #### [facility] [address] [place] [address] [employer] Mary PORTILLOIA [id number] Neutrophils/100 WBC (Bld) 57.4 % Normal 50.0-70.0 [facility] Comment on above: Performed By: #### 5 7021-8 #### [address] [place] [address] [employer] - Mary GAUTAM [id number] Nucleated RBC (Bld) [#/Vol] 0.00 10*3/uL Normal <=0.10 [facility] Comment on above: Performed By: #### 5 7021-8 #### [address] [place] [address] [employer] - Mary PORTILLOIA [id number] Platelet mean volume (Bld) [Entitic vol] 11.9 fL Normal 9.0-13.0 [facility] Comment on above: Performed By: #### 5 7021-8 #### [address] [place] [address] [employer] - Mary PORTILLOIA [id number] Platelets (Bld) [#/Vol] 210 10*3/uL Normal 130-400 [facility] Comment on above: Performed By: #### 5 7021-8 #### [address] [place] [address] [employer] - Mary PORTILLOIA [id number] RBC (Bld) [#/Vol] 4.81 10*6/uL Normal 4.00-6.30 [facility] Comment on above: Performed By: #### 5 7021-8 #### [address] [place] [address] [employer] - Mary PORTILLOIA [id number] WBC (Bld) [#/Vol] 6.44 10*3/uL Normal 4.80-10.80 [facility] Comment on above: Performed By: #### 5 7021-8 #### [facility] [address] [place], [place] [address] [employer] - Mary GAUTAM [id number] CHEST AND LATERAL OR 2 VIEWS on [...] No acute cardiopulmonary process is identified. Normal [facility] Comprehensive metabolic 2000 panelon 09-12-2021 Albumin [Mass/Vol] 3.6 g/dL Normal 3.4-5.0 [facility] Comment on above: Performed By: #### 1 1579-0, 28230-9, 59834-2, 69459-5 ####[facility], [place] [address]Bnzxjgf Director - Mary Shaffer [id number] ALP [Catalytic activity/Vol] 82 U/L Normal 50-136 [facility] Comment on above: Performed By: #### 1 1579-0, 27854-3, 67984-9, 28218-3 ####[facility], [place] [address]Hwxtfnq Director - Mary Shaffer [id number] ALT [Catalytic activity/Vol] 19 U/L Normal 14-59 [facility] Comment on above: Performed By: #### 1 1579-0, 92045-5, 37197-5, 94910-8 ####[facility], [place] [address]Irecsgr Director - Mary Shaffer [id number] Anion gap [Moles/Vol] 3.0 mmol/L Normal <=15.0 [facility] Comment on above: Performed By: #### 1 1579-0, , , ####[facility] Director - Mary Shaffer [id number] AST [Catalytic activity/Vol] 13 U/L Low 15-37 [facility] Comment on above: Performed By: #### 1 1579-0, , , ####[facility] Director - Mary Shaffer [id number] Bilirubin [Mass/Vol] 0.4 mg/dL Normal 0.2-1.0 [facility] Comment on above: Performed By: #### 1 9-0, , , ####[facility] Director - Mary Shaffer [id number] Calcium [Mass/Vol] 8.7 mg/dL Normal 8.5-10.1 [facility] Comment on above: Performed By: #### 1 9-0, , , ####[facility] Director - Mary Shaffer [id number] Chloride [Moles/Vol] 105 mmol/L Normal 98-107 [facility] Comment on above: Performed By: #### 1 9-0, , , ####[facility] Director - Maryjazmine ParraCLMILO [id number] CO2 [Moles/Vol] 26 mmol/L Normal 21-32 [facility] Comment on above: Performed By: #### 1 1579-0, , , ####[facility] Director - Mary Deena [id number] Creatinine [Mass/Vol] 0.40 mg/dL Low 0.51-0.95 [facility] Comment on above: Performed By: #### 1 9-0, , , ####[facility], [place] [address]Ydpldzk Director - Maryjazmine Shaffer [id number] GFR/1.73 sq M.predicted MDRD (S/P/Bld) [Vol rate/Area] mL/min/{1.73_m2} Normal >=59 [facility] Comment on above: Performed By: #### 1 9-0, , , ####[facility] - Mary Shaffer [id number] Glucose [Mass/Vol] 99 mg/dL Normal 74-106 [facility] Comment on above: Performed By: #### 1 9-0, , , ####[facility] Mary Shaffer [id number] HGFR GLOMERULAR FILTRATION RATE INTERPRETATION~The eGFR is [...] months, with or without kidney damage.~ Normal [facility] Comment on above: Performed By: #### 1 9-0, , , ####[facility], [place] [address]Fxkdjaz Director - Mary Shaffer [id number] Potassium [Moles/Vol] 3.7 mmol/L Normal 3.5-5.1 [facility] Comment on above: Performed By: #### 1 1579-0, 40562-9, , ####[facility], [place] [address]Ulhkqux Director - Mary Shaffer [id number] Protein [Mass/Vol] 6.8 g/dL Normal 6.4-8.2 [facility] Comment on above: Performed By: #### 1 1579-0, , , ####[facility], [place] [address]Bynpwnu Director - Mary Shaffer [id number] Sodium [Moles/Vol] 134 mmol/L Low 136-145 [facility] Comment on above: Performed By: #### 1 9-0, 45655-1, , ####[facility], [place] [address]Onspquv Director - Mary Shaffer [id number] Urea nitrogen [Mass/Vol] 7 mg/dL Normal 7-17 [facility] Comment on above: Performed By: #### 1 1579-0, , , ####[facility], [place] [address]Swejzes Director - Mary Shaffer [id number] Drugs identified Screen Nom (U)on 09-12-2021 Amphetamines Ql (U) Not detected Normal CUTOFF = 500 [facility] Comment on above: Performed By: #### 1 2286-1 #### [facility] [address] [place], [place] [address] Grain Thresher - Mary GAUTAM [id number] Barbiturates Ql (U) Not detected Normal CUTOFF = 200 K [facility] Comment on above: Performed By: #### 1 2286-1 #### [facility] [address] [place] [address] Grain Thresher - Mary [facility] [id number] Benzodiazepines Ql (U) Not detected Normal CUTOFF = 15 0 [facility] Comment on above: Performed By: #### 1 2286-1 #### [facility] [address] [place] [address] Grain Thresher - [facility] [id number] Cocaine Ql (U) Not detected Normal CUTOFF = 150 [facility] Comment on above: Performed By: #### 1 2286-1 #### [facility] [address] [place] [address] Grain Thresher - Mary [facility] [id number] HDRUG Drugs of abuse screening provides only a preliminary analytical test result. A more specific alternate chemical method must be used in order to obtain a confimed analytical result. Clinical consideration and professional judgment should be applied to any drug of abuse test result, particularly when preliminary positive results are obtained. Normal [facility] Comment on above: Performed By: #### 1 2286-1 #### [facility] [address] [place] [address] Grain Thresher [facility] [id number] Methadone Ql (U) Not detected Normal CUTOFF = 200 [facility] Comment on above: Performed By: #### 1 2286-1 #### [facility] [address] [place] [address] Grain Thresher [facility] [id number] Opiates Ql (U) Not detected Normal CUTOFF = 300 [facility] Comment on above: Performed By: #### 1 2286-1 #### [facility] [address] [place] [address] Grain Thresher - [facility] [id number] oxyCODONE Ql (U) Not detected Normal CUTOFF = 100 [facility] Comment on above: Performed By: #### 1 2286-1 #### [facility] [address] [place] [address] Grain Thresher - Mary [facility] [id number] Phencyclidine Ql (U) Not detected Normal CUTOFF = 25 [facility] Comment on above: Performed By: #### 1 2286-1 #### [facility] [address] [place] [address] Grain Thresher - Mary [facility] [id number] Tetrahydrocannabinol Ql (U) Not detected Normal CUTOFF = 50 [facility] Comment on above: Performed By: #### 1 2286-1 #### [facility] [address] [place] [address] Grain Thresher - Mary [facility] [id number] HCG ( test) Ql (U)o n 09-12-2021 Beta HCG ( test) Ql (U) Negative Normal NEGATIVE [facility] Comment on above: Performed By: #### 2 106-3 #### [place] [address] [place] [address] Grain Thresher - Mary [facility] [id number] #### UAR #### [place] [address] [place] [address] Grain Thresher - Mary [facility] [id number] Performed for [address] [place] [address] HCG BLOODon 09-12-2021 HCG.beta subunit Qn m[IU]/mL Normal 1-3 [facility] Comment on above: Performed By: #### 1 1579-0, 09625-4, 48938-3, 85337-7 ####[place] [address] [address]Medical Director - Mary Shaffer [id number] HCG.beta subunit Qnon 2021 [facility] HCG INTERPRETATION The expected values were [...] 6-8 weeks 15,000-200,000 2-3 months 10,000-100,000 Normal [facility] Comment on above: Performed By: #### 1 1579-0, 89380-6, 20906-2, ####[facility] [address]Medical Director - Mary Shaffer [id number] MAGNESIUMon 09-12-2021 Magnesium [Mass/Vol] 2.1 mg/dL Normal 1.6-2.6 [facility] Comment on above: Performed By: #### 1 1579-0, , , ####[facility] Director - Mary Shaffer [id number] TROPONIN HIGH SENSITIVITYon 09-12-2021 TNIH <3.00 Normal <=59.00 [facility] Comment on above: Result Comment: <59 pg/mL is considered a negative result. Performed By: #### T ROP2 #### [facility] [address] [place] [address] Grain Thresher - Mary GAUTAM [id number] TSH DL <= 0.05 mIU/L Qnon TSH Qn 1.200 uIU/mL Normal 0.358-3.740 [facility] Comment on above: Performed By: #### 1 1579-0, 01426-0, , ####[facility] Director - Mary Shaffer [id number] URINALYSIS with reflex to CU LTUREon 09-12-2021 BACTERIA Normal TRACE [facility] Comment on above: Performed By: #### 2 106-3 #### [facility] [address] [place] [address] Grain Thresher - Mary GAUTAM [id number] #### UAR #### [facility] [address] [place] [address] Grain Thresher - Mary GAUTAM [id number] Performed for [facility] [address] [place] [address] Bilirubin Ql (U) Negative Normal NEGATIVE [facility] Comment on above: Performed By: #### 2 106-3 #### [facility] [address] [place] [address] Grain Thresher - Mary GAUTAM [id number] #### UAR #### [facility] [address] [place] [address] Grain Thresher - Mary GAUTAM [id number] Performed for [facility] [address] [place] [address] Clarity (U) CLEAR Normal CLEAR [facility] Comment on above: Performed By: #### 2 106-3 #### [facility] [address] [place] [address] Grain Thresher - Mary GAUTAM [id number] #### UAR #### [facility] [address] [place] [address] Grain Thresher - Mary GAUTAM [id number] Performed for [facility] [address] [place] [address] Color (U) YELLOW Normal YELLOW [facility] Comment on above: Performed By: #### 2 106-3 #### [facility] [address] [place] [address] Grain Thresher - Mary GAUTAM [id number] #### UAR #### [facility] [address] [place] [address] Grain Thresher - Mary GAUTAM [id number] Performed for [facility] [address] [place] [address] Glucose Ql (U) Negative Normal NEGATIVE [facility] Comment on above: Performed By: #### 2 106-3 #### [facility] [address] [place] [address] Grain Thresher - Mary GAUTAM [id number] #### UAR #### [facility] [address] [place] [address] Grain Thresher - Mary GAUTAM [id number] Performed for [facility] [address] [place] [address] Hemoglobin Ql (U) Negative Normal NEGATIVE [facility] Comment on above: Performed By: #### 2 106-3 #### [facility] [address] [place] [address] Grain Thresher - Mary GAUTAM [id number] #### UAR #### [facility] [address] [place] [address] Grain Thresher - Mary GUATAM [id number] Performed for [facility] [address] [place] [address] HMICRO MICROSCOPIC Normal [facility] Comment on above: Performed By: #### 2 106-3 #### [facility] [address] [place] [address] Grain Thresher - Mary GAUTAM [id number] #### UAR #### [facility] [address] [place] [address] Grain Thresher - Mary GAUTAM [id number] Performed for [facility] [address] [place] [address] Hyaline casts (Urine sed) [#/Area] Normal 0-8 [facility] Comment on above: Performed By: #### 2 106-3 #### [facility] [address] [place] [address] Grain Thresher - Mary GAUTAM [id number] #### UAR #### [facility] [address] [place] [address] Grain Thresher - Mary GAUTAM [id number] Performed for [facility] [address] [place] [address] KETONE Negative Normal NEGATIVE [facility] Comment on above: Performed By: #### 2 106-3 #### [facility] [address] [place] [address] Grain Thresher - Mary PORTILLOIA [id number] #### UAR #### [facility] [address] [place] [address] Grain Thresher - Mary PORTILLOIA [id number] Performed for [facility] [address] [place] [address] Leukocyte esterase Test strip Ql (U) Negative Normal TRACE [facility] Comment on above: Performed By: #### 2 106-3 #### [facility] [address] [place] [address] Grain Thresher - Mary GAUTAM [id number] #### UAR #### [facility] [address] [place] [address] Grain Thresher - Mary PORTILLOIA [id number] Performed for [facility] [address] [place] [address] Nitrite Ql (U) Negative Normal NEGATIVE [facility] Comment on above: Performed By: #### 2 106-3 #### [facility] [address] [place] [address] Grain Thresher - Mary PORTILLOIA [id number] #### UAR #### [facility] [address] [place] [address] Grain Thresher - Mary PORTILLOIA [id number] Performed for [facility] [address] [place] [address] pH (U) 6.5 [pH] Normal 5.5-7.5 [facility] Comment on above: Performed By: #### 2 106-3 #### [facility] [address] [place] [address] Grain Thresher - Mary PORTILLOIA [id number] #### UAR #### [facility] [address] [place] [address] Grain Thresher - Mary PORTILLOIA [id number] Performed for [facility] [address] [place] [address] Protein Ql (U) Negative Normal NEGATIVE [facility] Comment on above: Performed By: #### 2 106-3 #### [facility] [address] [place] [address] Grain Thresher - Mary GAUTAM [id number] #### UAR #### [facility] [address] [place] [address] Grain Thresher - Mary GAUTAM [id number] Performed for [facility] [address] [place] [address] RBC LM.HPF (Urine sed) [#/Area] Normal 0-4 [facility] Comment on above: Performed By: #### 2 106-3 #### [facility] [address] [place] [address] Grain Thresher - Mayr GAUTAM [id number] #### UAR #### [facility] [address] [place] [address] Grain Thresher - Mary GAUTAM [id number] Performed for [facility] [address] [place] [address] Specific gravity (U) [Rel density] 1.022 Normal 1.010-1.035 [facility] Comment on above: Performed By: #### 2 106-3 #### [facility] [address] [place] [address] Grain Thresher - Mary GAUTAM [id number] #### UAR #### [facility] [address] [place] [address] Grain Thresher - Mary GAUTAM [id number] Performed for [facility] [address] [place] [address] SQUAMOUS EPITHELIALS Normal 0-5 [facility] Comment on above: Performed By: #### 2 106-3 #### [facility] [address] [place] [address] Grain Thresher - Mary GAUTAM [id number] #### UAR #### [facility] [address] [place] [address] Grain Thresher - Mary GAUTAM [id number] Performed for [facility] [address] [place] [address] Urobilinogen Qn (U) 1.0 {Jasmyne'U}/dL Normal <=1.0 [facility] Comment on above: Performed By: #### 2 106-3 #### [place] [address] [place] [address] Grain Thresher - Mary GAUTAM [id number] #### UAR #### [place] [address] [place] [address] Grain Thresher [facility] [id number] Performed for [address] [place] [address] WBC LM.HPF (Urine sed) [#/Area] Normal 0-5 [facility] Comment on above: Performed By: #### 2 106-3 #### [place] [address] [place] [address] Grain Thresher - Mary PORTILLOIA [id number] #### UAR #### [place] [address] [place] [address] Grain Thresher - Mary PORTILLOIA [id number] Performed for [place] [address] HCG.beta subunit [facility] 2021 hCG Quant 1355 mIU/mL Normal [facility] Comment on above: Result Comment: Preg bisbee Reference Ranges Negative = < 5 mIU/ml [...] method. Performed By: #### 2 1198-7 #### [facility] [address] [place] [address] Hemogram and platelets WO di fferential panel (Bld)on 07-20-2021 Basophils (Bld) [#/Vol] 0.10 10*3/uL Normal 0.00-0.20 [facility] Comment on above: Performed By: #### 2 4317-0 #### [facility] [address] [place] [address] Basophils/100 WBC (Bld) 0.6 % Normal 0.0-2.0 [facility] Comment on above: Performed By: #### 2 4317-0 #### [facility] [address] [place] [address] Eosinophils (Bld) [#/Vol] 0.10 10*3/uL Normal 0.00-0.70 [facility] Comment on above: Performed By: #### 2 4317-0 #### [facility] [address] [place] [address] Eosinophils/100 WBC (Bld) 0.8 % Normal 0.0-7.0 [facility] Comment on above: Performed By: #### 2 4317-0 #### [facility] [address] [place] [address] Erythrocyte distribution width (RBC) [Ratio] 12.8 % Normal 11.0-14.8 [facility] Comment on above: Performed By: #### 2 4317-0 #### [facility] [address] [place] [address] Hematocrit (Bld) [Volume fraction] 40.2 % Normal 35.0-45.0 [facility] Comment on above: Performed By: #### 2 4317-0 #### [facility] [address] [place] [address] Hemoglobin (Bld) [Mass/Vol] 14.0 g/dL Normal 12.0-16.0 [facility] Comment on above: Performed By: #### 2 4317-0 #### [facility] [address] [place] [address] Lymphocytes (Bld) [#/Vol] 3.10 10*3/uL Normal 1.00-4.80 [facility] Comment on above: Performed By: #### 2 4317-0 #### [facility] [address] [place] [address] Lymphocytes/100 WBC (Bld) 33.8 % Normal 22.0-44.0 [facility] Comment on above: Performed By: #### 2 4317-0 #### [facility] [address] [place] [address] MCH 29.3 pcg Normal 27.0-34.0 [facility] Comment on above: Performed By: #### 2 4317-0 #### [facility] [address] [place] [address] MCHC (RBC) [Mass/Vol] 34.9 g/dL Normal 32.0-36.0 [facility] Comment on above: Performed By: #### 2 4317-0 #### [facility] [address] [place] [address] MCV (RBC) [Entitic vol] 84.0 fL Normal 80.0-97.0 [facility] Comment on above: Performed By: #### 2 4317-0 #### [facility] [address] [place] [address] Monocytes (Bld) [#/Vol] 0.50 10*3/uL Normal 0.00-0.90 [facility] Comment on above: Performed By: #### 2 4317-0 #### [facility] [address] [place] [address] Monocytes/100 WBC (Bld) 5.0 % Normal 0.0-12.0 [facility] Comment on above: Performed By: #### 2 4317-0 #### [facility] [address] [place] [address] Neutrophils Absolute 5.40 K/mcL Normal 1.80-7.70 [facility] Comment on above: Performed By: #### 2 4317-0 #### [facility] [address] [place] [address] Neutrophils/100 WBC (Bld) 59.8 % Normal 40.0-70.0 [facility] Comment on above: Performed By: #### 2 4317-0 #### [facility] [address] [place] [address] Platelet mean volume (Bld) [Entitic vol] 9.2 fL Normal 6.2-12.1 [facility] Comment on above: Performed By: #### 2 4317-0 #### [facility] [address] [place] [address] Platelets (Bld) [#/Vol] 219 10*3/uL Normal 142-424 [facility] Comment on above: Performed By: #### 2 4317-0 #### [facility] [address] [place] [address] RBC (Bld) [#/Vol] 4.79 10*6/uL Normal 3.80-5.10 [facility] Comment on above: Performed By: #### 2 4317-0 #### [facility] [address] [place] [address] WBC (Bld) [#/Vol] 9.0 10*3/uL Normal 4.6-10.2 [facility] Comment on above: Performed By: #### 2 4317-0 #### [facility] [address] [place] [address] Rh immune globulin screen (B ld) [Interp]on 07-20-2021 ABO group Nom (Bld) O Normal [facility] Comment on above: Performed By: #### 1 314-4 #### [facility] [address] [place] [address] Rh Type Positive Normal [facility] Comment on above: Performed By: #### 1 314-4 #### [facility] [address] [place] [address] RhIG Candidate RhIG not indicated Normal [facility] Comment on above: Performed By: #### 1 314-4 #### [facility] [address] [place] [address] ABO group Nom (Bld) O [facility] Blood group antibody screen Ql Negative [facility] Rh Nom (Bld) Positive [facility] RhIG Candidate RhIG not indicated Tr [facility] [place] HCG ( test) Ql (U)o n 07-19-2021 Preg Test, Ur Positive Abnormal Negative [facility] Comment on above: Performed By: #### 2 106-3 #### [facility] [address] [place] [address] HCG ( test) Ql (U)O rdered By: Sumi Watkins on 07-19-2021 Interpretation and review of laboratory results Abnormal [facility] HCG qualitative, urineOrdere d By: Sumi Watkins on 07-19-2021 HCG ( test) Ql (U) Positive Abnormal Negative [employer] HCG.beta subunit Qnon 2021 HCG Qn 1355 m[IU]/mL mIU/mL [facility] Comment on above: Reference Ranges Negative = [...] values obtained with a different immunoassay method. [employer] HCGQon 07-19-2021 HCGQ 2860.2 MIU/ML Normal less than 3 [facility] Comment on above: Result Comment: [facility] EARL COMMENTS Less than 5 mIU/ML NEGATIVE FOR 5-25 mIU/ML BORDERLINE; RETEST IN 48 HOURS, IF INDICATED Greater than 25 mIU/ML POSITIVE FOR WEEKS POST LMP RANGE IN mIU/ML* 3-4 9-130 4-5 75-2600 5-6 [phone] 6-7 [phone] 7-12 [id number] 12-16 58746-227701 16-29 1400-95283 29-41 [phone] *These ranges are from published literature and may not be appropriate for all cases. When HCG levels are above 4000 mIU/ML, distinction between normal and abnormal is poor. The rate of change (doubling time) may be helpful. (Reference: NCC ) Performed By: #### L 550.46318, L550.44613 #### [facility] [address]# [phone] Hemogram and platelets WO di fferential panel (Bld)on 07-19-2021 Basophils (Bld) [#/Vol] 0.10 10*3/uL [facility] Basophils/100 WBC (Bld) 0.6 % 0.0 - 2.0 % [facility] Eosinophils (Bld) [#/Vol] 0.10 10*3/uL [facility] Eosinophils/100 WBC (Bld) 0.8 % 0.0 - 7.0 % [facility] Erythrocyte distribution width (RBC) [Ratio] 12.8 % 11.0 - 14.8 % [facility] Hematocrit (Bld) [Volume fraction] 40.2 % 35.0 - 45.0 % [facility] Hemoglobin (Bld) [Mass/Vol] 14.0 g/dL 12.0 - 16.0 g/dL [facility] Interpretation and review of laboratory results Normal [facility] Lymphocytes (Bld) [#/Vol] 3.10 10*3/uL [facility] Lymphocytes/100 WBC (Bld) 33.8 % 22.0 - 44.0 % [facility] MCH (RBC) [Entitic mass] 29.3 pg [facility] MCHC (RBC) [Mass/Vol] 34.9 g/dL 32.0 - 36.0 g/dL [facility] MCV (RBC) [Entitic vol] 84.0 fL [facility] Monocytes (Bld) [#/Vol] 0.50 10*3/uL [facility] [...] (Bld) [#/Vol] 9.0 10*3/uL [facility] No Panel Informationon 07-19 of unknown location. [...] adnexal masses or free pelvic fluid. POWERSCRIBE Sriinvas Wilson MD - 07/19/2021 EXAMINATION TYPE: US [...] By: Self Edit Transcribed Date: 07/19/2021 20:51 [employer] Radiology Study observation (narrative) Instant Opinion Panel InformationOrdered By: Srinivas Wilson on 07-19-2021 [employer] Work Phone: PROGESTERONEon 07-19-2021 PROGESTERONE 25.43 NG/ML Normal SEE CHART [facility] Comment on above: Result Comment: Fema [...] measure progesterone concentrations. Performed By: #### L 550.78659, L550.87872 #### [facility] [address] [place] [address]# [phone] US OB LESS 14 WKS SINGLE OR [...] Self Edit Transcribed Date: 07/19/2021 20:51 Normal [facility] US OB TRANSVAGINALon 022 US OB TRANSVAGINAL [...] Self Edit Transcribed Date: 07/19/2021 20:51 Normal [facility] Urinalysis dipstick W Reflex Culture panel (U)on 07-19-2021 Bacteria, Urine Few Abnormal None [facility] Comment on above: Performed By: #### 5 7019-2 #### [facility] [address] [place] [address] Bilirubin, Urine Negative Normal Negative [facility] Comment on above: Performed By: #### 5 7019-2 #### [facility] [address] [place] [address] Blood, Urine 3+ Abnormal Negative [facility] Comment on above: Performed By: #### 5 7019-2 #### [facility] [address] [place] [address] Clarity (U) Hazy Abnormal Clear [facility] Comment on above: Performed By: #### 5 7019-2 #### [facility] [address] [place] [address] Color (U) Yellow Normal Yellow [facility] Comment on above: Performed By: #### 5 7019-2 #### [facility] [address] [place] [address] Glucose Ql (U) Normal Normal Normal [facility] Comment on above: Performed By: #### 5 7019-2 #### [facility] [address] [place] [address] Ketones Ql (U) 80 mg/dL Abnormal Negative [facility] Comment on above: Performed By: #### 5 7019-2 #### [facility] [address] [place] [address] Leukocytes, Urine Negative Normal Negative [facility] Comment on above: Performed By: #### 5 7019-2 #### [facility] [address] [place] [address] Mucus, UA Many Abnormal None [facility] Comment on above: Performed By: #### 5 7019-2 #### [facility] [address] [place] [address] Nitrite, Urine Negative Normal Negative [facility] Comment on above: Performed By: #### 5 7019-2 #### [facility] [address] [place] [address] pH (U) 5.0 [pH] Normal 5.0-8.0 [facility] Comment on above: Performed By: #### 5 7019-2 #### [facility] [address] [place] [address] Protein (U) [Mass/Vol] 30 mg/dL Abnormal Negative [facility] Comment on above: Performed By: #### 5 7019-2 #### [facility] [address] [place] [address] RBC LM.HPF (Urine sed) [#/Area] 14 /[HPF] High 0-5 [facility] Comment on above: Performed By: #### 5 7019-2 #### [facility] [address] [place] [address] Specific [place] Urine 1.025 Normal 1.002-1.030 [facility] Comment on above: Performed By: #### 5 7019-2 #### [facility] [address] [place] [address] Squamous Epithelial, Urine Many Abnormal None [facility] Comment on above: Performed By: #### 5 7019-2 #### [facility] [address] [place] [address] Urobilinogen, Urine Normal Normal Normal [facility] Comment on above: Performed By: #### 5 7019-2 #### [facility] [address] [place] [address] WBC LM.HPF (Urine sed) [#/Area] 9 /[HPF] High 0-5 [facility] Comment on above: Performed By: #### 5 7019-2 #### [facility] [address] [place] [address] Bacteria LM.HPF (Urine sed) [#/Area] Few Abnormal None /HPF [facility] Bilirubin Ql (U) Negative Negative mg/dL [facility] Clarity (U) Hazy Abnormal Clear [facility] Color (U) Yellow Yellow [facility] Epithelial cells.squamous LM.HPF (Urine sed) [#/Area] Many Abnormal None /LPF [facility] Glucose Ql (U) Normal Normal mg/dL [employer] Hemoglobin Ql (U) 3+ Abnormal Negative [facility] Interpretation and review of laboratory results Abnormal [facility] Ketones (U) [Mass/Vol] 80 mg/dL Abnormal Negative mg/d L [facility] Leukocyte esterase Test strip Ql (U) Negative Negative WBCs/mcL [facility] Mucus Ql (Urine sed) Many Abnormal None /LPF [facility] Nitrite Ql (U) Negative Negative [facility] pH (U) 5.0 [pH] 5.0 - 8.0 [facility] Protein (U) [Mass/Vol] 30 mg/dL Abnormal Negative mg/d L [facility] RBC LM.HPF (Urine sed) [#/Area] 14 /[HPF] High [facility] Specific gravity (U) [Rel density] 1.025 [facility] Urobilinogen (U) [Mass/Vol] Normal Normal mg/dL [facility] WBC LM.HPF (Urine sed) [#/Area] 9 /[HPF] High [facility] HCGQon 07-17-2021 HCGQ 1594.7 MIU/ML Normal less than 3 [facility] Comment on above: Result Comment: REFE EARL COMMENTS Less than 5 mIU/ML NEGATIVE FOR 5-25 mIU/ML BORDERLINE; RETEST IN 48 HOURS, IF INDICATED Greater than 25 mIU/ML POSITIVE FOR WEEKS POST LMP RANGE IN mIU/ML* 3-4 9-130 4-5 75-2600 5-6 [phone] 6-7 [phone] 7-12 [phone] 12-16 [phone] 16-29 1400-19440 29-41 [phone] *These ranges are from published literature and may not be appropriate for all cases. When HCG levels are above 4000 mIU/ML, distinction between normal and abnormal is poor. The rate of change (doubling time) may be helpful. (Reference: [facility] ) Performed By: #### L 550.65327 #### [facility] [address]# [phone] PROGESTERONEon 07-17-2021 PROGESTERONE 3.64 NG/ML Normal SEE CHART [facility] Comment on above: Result Comment: Fema [...] measure progesterone concentrations. Performed By: #### L 550.39506 #### [facility] [address] [place] [address] GENITAL CULTUREon 04-22-2021 GENITAL CULTURE GENITAL RESULT NO NEISSERIA GONORRHOEAE ISOLATED BETA STREP RESULT NO BETA STREPTOCOCCUS ISOLATED NORMAL JOB FEW NORMAL JOB ORGANISM 1: YEAST QUANTITATION FEW Normal [facility] Comment on above: Performed By: #### M 100.62490 #### [facility] [address] [place] [address] PCR GC AND CHLAMon PCR CHLAMYDIA Not detected Normal NOT DETECTD [facility] Comment on above: Performed By: #### L 770.39333 #### [facility] [address] [place] [address] PCR GONORRHOEAE Not detected Normal NOT DETECTD [facility] Comment on above: Performed By: #### L 770.82234 #### [facility] [address] [place] [address] HCGQon 04-13-2021 HCGQ LESS THAN 2.6 Normal less than 3 [facility] Comment on above: Result Comment: REFE RENCE COMMENTS Less than 5 mIU/ML NEGATIVE FOR 5-25 mIU/ML BORDERLINE; RETEST IN 48 HOURS, IF INDICATED Greater than 25 mIU/ML POSITIVE FOR WEEKS POST LMP RANGE IN mIU/ML* 3-4 9-130 4-5 75-2600 5-6 [phone] 6-7 [phone] 7-12 69670-937352 12-16 [phone] 16-29 1400-20704 29-41 [phone] *These ranges are from published literature and may not be appropriate for all cases. When HCG levels are above 4000 mIU/ML, distinction between normal and abnormal is poor. The rate of change (doubling time) may be helpful. (Reference: [facility] ) Performed By: #### L 550.54910, L550.18672 #### [facility] [address] [place] [address] # [phone] PROGESTERONEon 04-13-2021 PROGESTERONE 0.72 NG/ML Normal SEE CHART [facility] Comment on above: Result Comment: Femboubacar [...] measure progesterone concentrations. Performed By: #### L 550.49582, L550.20476 #### [facility] [address] [place] [address] # [phone] CT ABDOMEN AND PELVIS WITHOU T CONTRASTon [...] spleen. Normal appearing appendix is visualized. Normal [facility] CBC W Auto Differential pane l (Bld)on 03-13-2021 Basophils (Bld) [#/Vol] 0.02 10*3/uL Normal <=0.70 [facility] Comment on above: Performed By: #### 5 7021-8 ####[facility] Director - Mary Davidnorth shore healthDAIN [id number] Basophils/100 WBC (Bld) 0.2 % Normal <=2.0 [facility] Comment on above: Performed By: #### 5 7021-8 ####[place] [address] Director - Mary Deena [id number] Eosinophils (Bld) [#/Vol] 0.07 10*3/uL Normal <=0.70 [facility] Comment on above: Performed By: #### 5 7021-8 ####[place] [address] Director - [facility] [id number] Eosinophils/100 WBC (Bld) 0.8 % Normal <=10.0 [facility] Comment on above: Performed By: #### 5 7021-8 ####[place] [address] Director - Mary FidelMILO [id number] Erythrocyte distribution width (RBC) [Entitic vol] 35.8 fL Low 36.4-46.3 [facility] Comment on above: Performed By: #### 5 7021-8 ####[facility] Director - Maryjazmine ParraCLMILO [id number] Hematocrit (Bld) [Volume fraction] 40.6 % Normal 37.0-47.0 [facility] Comment on above: Performed By: #### 5 7021-8 ####[facility] Director - Maryjazmine Shaffer [id number] Hemoglobin (Bld) [Mass/Vol] 14.0 g/dL Normal 12.0-16.0 [facility] Comment on above: Performed By: #### 5 7021-8 ####[facility] Director - Maryjazmine ParraCLIA [id number] Immature granulocytes (Bld) [#/Vol] 0.03 10*3/uL Normal <=0.10 [facility] Comment on above: Performed By: #### 5 7021-8 ####[facility] Director - Mary FidelCLIA [id number] Immature granulocytes/100 WBC (Bld) 0.30 % Normal <=1.50 [facility] Comment on above: Performed By: #### 5 7021-8 ####[facility] Director - Mary DavidrellCLIA [id number] Lymphocytes (Bld) [#/Vol] 3.31 10*3/uL Normal 1.20-3.40 [facility] Comment on above: Performed By: #### 5 7021-8 ####[facility] Director - Maryjazmine ParraCLIA [id number] Lymphocytes/100 WBC (Bld) 35.8 % Normal 20.0-40.0 [facility] Comment on above: Performed By: #### 5 7021-8 ####[facility] Director - Mary Shaffer [id number] MCH (RBC) [Entitic mass] 29.1 pg Normal 27.0-31.0 [facility] Comment on above: Performed By: #### 5 7021-8 ####[facility] Director - Mary Shaffer [id number] MCHC (RBC) [Mass/Vol] 34.5 g/dL Normal 32.0-36.0 [facility] Comment on above: Performed By: #### 5 7021-8 ####[place] [address] Director - Mary Shaffer [id number] MCV (RBC) [Entitic vol] 84.4 fL Normal 80.0-100.0 [facility] Comment on above: Performed By: #### 5 7021-8 ####[place] [address] Director - Mary Shaffer [id number] Monocytes (Bld) [#/Vol] 0.45 10*3/uL Normal 0.10-0.60 [facility] Comment on above: Performed By: #### 5 7021-8 ####[facility] Director - Mary Shaffer [id number] Monocytes/100 WBC (Bld) 4.9 % Normal <=8.0 [facility] Comment on above: Performed By: #### 5 7021-8 ####[facility] Director - Maryjazmine Shaffer [id number] Neutrophils (Bld) [#/Vol] 5.36 10*3/uL Normal 1.40-6.50 [facility] Comment on above: Performed By: #### 5 7021-8 ####[place] [address], [place] [address]Ftwcqra Director - Mary Shaffer [id number] Neutrophils/100 WBC (Bld) 58.0 % Normal 50.0-70.0 [facility] Comment on above: Performed By: #### 5 7021-8 ####[facility], [place] [address]Hkeirey Director - Maryjazmine ParraCLMILO [id number] Nucleated RBC (Bld) [#/Vol] 0.00 10*3/uL Normal <=0.10 [facility] Comment on above: Performed By: #### 5 7021-8 ####[facility] Director - Mary Shaffer [id number] Platelet mean volume (Bld) [Entitic vol] 11.9 fL Normal 9.0-13.0 [facility] Comment on above: Performed By: #### 5 7021-8 ####[facility] Director - Mary DavidrellCLIA [id number] Platelets (Bld) [#/Vol] 255 10*3/uL Normal 130-400 [facility] Comment on above: Performed By: #### 5 7021-8 ####[facility] Director - Mary FarrellCLIA [id number] RBC (Bld) [#/Vol] 4.81 10*6/uL Normal 4.00-6.30 [facility] Comment on above: Performed By: #### 5 7021-8 ####[facility] Director - Mary FarrellCLIA [id number] WBC (Bld) [#/Vol] 9.24 10*3/uL Normal 4.80-10.80 [facility] Comment on above: Performed By: #### 5 7021-8 ####[facility] Director - Mary FarrellCLIA [id number] Comprehensive metabolic 2000 panelon 03-13-2021 Albumin [Mass/Vol] 3.9 g/dL Normal 3.4-5.0 [facility] Comment on above: Performed By: #### 3 040-3, ####[facility], [place] [address]Bsxkdak Director - Mary Shaffer [id number] ALP [Catalytic activity/Vol] 88 U/L Normal 50-136 [facility] Comment on above: Performed By: #### 3 040-3, ####[facility] Director - Mary Shaffer [id number] ALT [Catalytic activity/Vol] 28 U/L Normal 14-59 [facility] Comment on above: Performed By: #### 3 040-3, ####[facility] Director - Mary Shaffer [id number] Anion gap [Moles/Vol] 5.0 mmol/L Normal <=15.0 [facility] Comment on above: Performed By: #### 3 040-3, ####[facility] Director - Mary Shaffer [id number] AST [Catalytic activity/Vol] 12 U/L Low 15-37 [facility] Comment on above: Performed By: #### 3 040-3, ####[facility] Director - Mary Shaffer [id number] Bilirubin [Mass/Vol] 0.4 mg/dL Normal 0.2-1.0 [facility] Comment on above: Performed By: #### 3 040-3, 47881-0 ####[facility] Director - Mary Shaffer [id number] Calcium [Mass/Vol] 9.0 mg/dL Normal 8.5-10.1 [facility] Comment on above: Performed By: #### 3 -3, ####[facility], [place] [address]Dgqzaqp Director - Mary Shaffer [id number] Chloride [Moles/Vol] 104 mmol/L Normal 98-107 [facility] Comment on above: Performed By: #### 3 040-3, ####[facility] Director - Mary Shaffer [id number] CO2 [Moles/Vol] 28 mmol/L Normal 21-32 [facility] Comment on above: Performed By: #### 3 040-3, ####[facility] Director - Mary Shaffer [id number] Creatinine [Mass/Vol] 0.43 mg/dL Low 0.51-0.95 [facility] Comment on above: Performed By: #### 3 040-3, ####[facility] Director - Mary Shaffer [id number] GFR/1.73 sq M.predicted MDRD (S/P/Bld) [Vol rate/Area] mL/min/{1.73_m2} Normal >=59 [facility] Comment on above: Performed By: #### 3 040-3, ####[facility] Director - Mary Shaffer [id number] Glucose [Mass/Vol] 122 mg/dL High 74-106 [facility] Comment on above: Performed By: #### 3 040-3, ####[facility] Director - Mary Shaffer [id number] HGFR GLOMERULAR FILTRATION RATE INTERPRETATION~The eGFR is [...] months, with or without kidney damage.~ Normal [facility] Comment on above: Performed By: #### 3 -3, ####[facility] Director - [facility] [id number] Potassium [Moles/Vol] 3.3 mmol/L Low 3.5-5.1 [facility] Comment on above: Performed By: #### 3 -3, ####[facility] [id number] Protein [Mass/Vol] 7.7 g/dL Normal 6.4-8.2 [facility] Comment on above: Performed By: #### 3 -3, 27941-0 ####[facility] - [facility] [id number] Sodium [Moles/Vol] 137 mmol/L Normal 136-145 [facility] Comment on above: Performed By: #### 3 -3, 42188-3 ####[facility] [id number] Urea nitrogen [Mass/Vol] 10 mg/dL Normal 7-17 [facility] Comment on above: Performed By: #### 3 040-3, 57433-7 ####[facility] Director - Mary Shaffer [id number] Heterophile Ab IA Qlon 03-13 MONO SCREEN Negative Normal [facility] Comment on above: Performed By: #### 6 425-3 ####[facility] Director - Mary Shaffer [id number] LIPASEon 03-13-2021 Lipase [Catalytic activity/Vol] 87 U/L Normal 73-393 [facility] Comment on above: Performed By: #### 3 040-3, 89854-9 ####[facility] Director - Mary Shaffer [id number] RIBS LEFT UNILATERAL WITH CX Ildefonso 03-13-2021 [...] cardiopulmonary abnormality. No displaced rib fractures. Normal [facility] URINALYSIS with reflex to CU LTUREon 03-13-2021 BACTERIA Normal TRACE [facility] Comment on above: Performed By: #### U AR #### [facility] [address] [place] [address] [employer] - Mary GAUTAM [id number] Performed for [facility] [address] [place] [address] Bilirubin Ql (U) Negative Normal NEGATIVE [facility] Comment on above: Performed By: #### U AR #### [facility] [address] [place] [address] [employer]rain Th[employer]her - Mary GAUTAM [id number] Performed for [facility] [address] [place], [place] [address] Clarity (U) CLEAR Normal CLEAR [facility] Comment on above: Performed By: #### U AR #### [facility] [address] [place] [address] Grain Thresher - Mary PORTILLOIA [id number] Performed for [facility] [address] [place] [address] Color (U) YELLOW Normal YELLOW [facility] Comment on above: Performed By: #### U AR #### [facility] [address] [place] [address] Grain Thresher - Mary PORTILLOIA [id number] Performed for [facility] [address] [place] [address] Glucose Ql (U) Negative Normal NEGATIVE [facility] Comment on above: Performed By: #### U AR #### [facility] [address] [place] [address] Grain Thresher - Mary PORTILLOIA [id number] Performed for [facility] [address] [place] [address] Hemoglobin Ql (U) Negative Normal NEGATIVE [facility] Comment on above: Performed By: #### U AR #### [facility] [address] [place] [address] Grain Th[employer]her - Mary GAUTAM [id number] Performed for [facility] [address] [place] [address] HMICRO MICROSCOPIC Normal [facility] Comment on above: Performed By: #### U AR #### [facility] [address] [place] [address] Grain Thresher - Mary PORTILLOIA [id number] Performed for [facility] [address] [place] [address] Hyaline casts (Urine sed) [#/Area] Normal 0-8 [facility] Comment on above: Performed By: #### U AR #### [facility] [address] [place] [address] Grain Th[employer]her - Mary GAUTAM [id number] Performed for [facility] [address] [place], [place] [address] KETONE Negative Normal NEGATIVE [facility] Comment on above: Performed By: #### U AR #### [facility] [address] [place], [place] [address] Grain Thresher - Mary PORTILLOIA [id number] Performed for [facility] [address] [place], [place] [address] Leukocyte esterase Test strip Ql (U) Negative Normal TRACE [facility] Comment on above: Performed By: #### U AR #### [facility] [address] [place], [place] [address] Grain Thresher - Mary PORTILLOIA [id number] Performed for [facility] [address] [place], [place] [address] Nitrite Ql (U) Negative Normal NEGATIVE [facility] Comment on above: Performed By: #### U AR #### [facility] [address] [place], [place] [address] Grain Thresher - Mary PORTILLOIA [id number] Performed for [facility] [address] [place], [place] [address] pH (U) 5.5 [pH] Normal 5.5-7.5 [facility] Comment on above: Performed By: #### U AR #### [facility] [address] [place], [place] [address] Grain Thresher - Mary PORTILLOIA [id number] Performed for [facility] [address] [place], [place] [address] Protein Ql (U) Negative Normal NEGATIVE [facility] Comment on above: Performed By: #### U AR #### [facility] [address] [place], [place] [address] Grain Thresher - Mary PORTILLOIA [id number] Performed for [facility] [address] [place], [place] [address] RBC LM.HPF (Urine sed) [#/Area] Normal 0-4 [facility] Comment on above: Performed By: #### U AR #### [facility] [address] [place], [place] [address] Grain Thresher - Mary GAUTAM [id number] Performed for [facility] [address] [place], [place] [address] Specific gravity (U) [Rel density] 1.024 Normal 1.010-1.035 [facility] Comment on above: Performed By: #### U AR #### [facility] [address] [place], [place] [address] Grain Thresher - Mary GAUTAM [id number] Performed for [facility] [address] [place], [place] [address] SQUAMOUS EPITHELIALS Normal 0-5 [facility] Comment on above: Performed By: #### U AR #### [facility] [address] [place], [place] [address] Grain Thresher - Mary Parrabeny GAUTAM [id number] Performed for [facility] [address] [place], [place] [address] Urobilinogen Qn (U) 1.0 {Jasmyne'U}/dL Normal <=1.0 [facility] Comment on above: Performed By: #### U AR #### [facility] [address] [place], [place] [address] Grain Thresher - Mary Parrabeny GAUTAM [id number] Performed for [facility] [address] [place], [place] [address] WBC LM.HPF (Urine sed) [#/Area] Normal 0-5 [facility] Comment on above: Performed By: #### U AR #### [facility] [address] [place], [place] [address] Grain Thresher - Mary GAUTAM [id number] Performed for [facility] [address] [place], [place] [address] VIRAL RESPIRATORY PANELon Adenovirus Not detected Normal NOT DETECTED [facility] Comment on above: Performed By: #### R ESPIRA #### [facility] [address] [place], [place] [address] Grain Thresher - Mary GAUTAM [id number] Performed for [facility] [address] [place], [place] [address] B parapertussis Not detected Normal NOT DETECTED [facility] Comment on above: Performed By: #### R ESPIRA #### [facility] [address] [place], [place] [address] Grain Th[employer]her - [place] [id number] Performed for [facility] [address] [place], [place] [address] B pertussis Not detected Normal NOT DETECTED [facility] Comment on above: Performed By: #### R ESPIRA #### [facility] [address] [place], [place] [address] Grain Th[employer]her - [place] [id number] Performed for [facility] [address] [place], [place] [address] Chlamydia pneumoniae Not detected Normal NOT DETECTED [facility] Comment on above: Performed By: #### R ESPIRA #### [facility] [address] [place], [place] [address] Grain Th[employer]her - [place] [id number] Performed for [facility] [address] [place], [place] [address] CORONAVIRUS [id number] Not detected Normal NOT DETECTED [facility] Comment on above: Performed By: #### R ESPIRA #### [facility] [address] [place], [place] [address] Grain Th[employer]her - [place] [id number] Performed for [facility] [address] [place], [place] [address] CORONAVIRUS HKU1 Not detected Normal NOT DETECTED [facility] Comment on above: Performed By: #### R ESPIRA #### [facility] [address] [place], [place] [address] Grain Thresher - [place] [id number] Performed for [facility] [address] [place], [place] [address] CORONAVIRUS NL63 Not detected Normal NOT DETECTED [facility] Comment on above: Performed By: #### R ESPIRA #### [facility] [address] [place], [place] [address] Grain Thresher - Mary Parra [place] [id number] Performed for [facility] [address] [place], [place] [address] CORONAVIRUS OC43 Not detected Normal NOT DETECTED [facility] Comment on above: Performed By: #### R ESPIRA #### [facility] [address] [place], [place] [address] Grain Thresher - Mary GAUTAM [id number] Performed for [facility] [address] [place], [place] [address] HPCR TESTING PERFORMED BY PCR METHODOLOGY Normal [facility] Comment on above: Performed By: #### R ESPIRA #### [facility] [address] [place] [address] Grain Thresher - Mary PORTILLOIA [id number] Performed for [facility] [address] [place] [address] HPCRB TEST PERFORMED USING BIOFIRE Normal [facility] Comment on above: Performed By: #### R ESPIRA #### [facility] [address] [place] [address] Grain Thresher - Mary PORTILLOIA [id number] Performed for [facility] [address] [place], [place] [address] Human Metapneumoviru Not detected Normal NOT DETECTED [facility] Comment on above: Performed By: #### R ESPIRA #### [facility] [address] [place], [place] [address] Grain Thresher - Mary PORTILLOIA [id number] Performed for [facility] [address] [place], [place] [address] Influenza A Not detected Normal NOT DETECTED [facility] Comment on above: Performed By: #### R ESPIRA #### [facility] [address] [place], [place] [address] Grain Thresher - Mary PORTILLOIA [id number] Performed for [facility] [address] [place], [place] [address] Influenza A / H1 Normal NOT DETECTED [facility] Comment on above: Performed By: #### R ESPIRA #### [facility] [address] [place], [place] [address] Grain Thresher - Mary PORTILLOIA [id number] Performed for [facility] [address] [place], [place] [address] Influenza A / H3 Normal NOT DETECTED [facility] Comment on above: Performed By: #### R ESPIRA #### [facility] [address] [place] [address] Grain Thresher - Mary Parra CLIA [id number] Performed for [facility] [address] [place], [place] [address] Influenza A H1-[address] [facility] Comment on above: Performed By: #### R ESPIRA #### [facility] [address] [place] [address] [employer] - Mary Parra [place] [id number] Performed for [facility] [address] [place] [address] Influenza B Not detected Normal NOT DETECTED [facility] Comment on above: Performed By: #### R ESPIRA #### [facility] [address] [place] [address] [employer]rain [employer] - [facility] [place] [id number] Performed for [facility] [address] [place] [address] Mycoplasma pneumonia Not detected Normal NOT DETECTED [facility] Comment on above: Performed By: #### R ESPIRA #### [facility] [address] [place] [address] Grain Th[employer]her - Mary Parra [place] [id number] Performed for [facility] [address] [place] [address] Parainfluenza 1 Not detected Normal NOT DETECTED [facility] Comment on above: Performed By: #### R ESPIRA #### [facility] [address] [place] [address] [employer] - [facility] [place] [id number] Performed for [facility] [address] [place], [place] [address] Parainfluenza 2 Not detected Normal NOT DETECTED [facility] Comment on above: Performed By: #### R ESPIRA #### [facility] [address] [place] [address] Grain Th[employer]her - [employer] [place] [id number] Performed for [facility] [address] [place], [place] [address] Parainfluenza 3 Not detected Normal NOT DETECTED [facility] Comment on above: Performed By: #### R ESPIRA #### [facility] [address] [place] [address] [facility] - [facility] [id number] Performed for [facility] [address] [place] [address] Parainfluenza 4 Not detected Normal NOT DETECTED [facility] Comment on above: Performed By: #### R ESPIRA #### [facility] [address] [place] [address] [employer]her - [facility] [id number] Performed for [facility] [address] [place] [address] Rhinovirus Not detected Normal NOT DETECTED [facility] Comment on above: Performed By: #### R ESPIRA #### [facility] [address] [place] [address] [employer] - [facility] [id number] Performed for [facility] [address] [place] [address] RSV Not detected Normal NOT DETECTED [facility] Comment on above: Performed By: #### R ESPIRA #### [facility] [address] [place] [address] [employer] - [facility] [id number] Performed for [facility] [address] [place] [address] SARS-CoV-2 (COVID-19) RNA PETER+probe Ql (Unsp spec) Not detected Normal NOT DETECTED [facility] Comment on above: Performed By: #### R ESPIRA #### [facility] [address] [place] [address] [employer] - [facility] [id number] Performed for [facility] [address] [place] [address] HCGQon 09-04-2020 HCGQ LESS THAN 2.6 Normal less than 3 [facility] Comment on above: Result Comment: REFE RENCE COMMENTS Less than 5 mIU/ML NEGATIVE FOR 5-25 mIU/ML BORDERLINE; RETEST IN 48 HOURS, IF INDICATED Greater than 25 mIU/ML POSITIVE FOR WEEKS POST LMP RANGE IN mIU/ML* 3-4 9-130 4-5 [phone] 5-6 [phone] 6-7 [phone] 7-12 [id number] 12-16 [id number] 16-29 [phone] 29-41 [phone] *These ranges are from published literature and may not be appropriate for all cases. When HCG levels are above 4000 mIU/ML, distinction between normal and abnormal is poor. The rate of change (doubling time) may be helpful. (Reference: NCCLS ) Performed By: #### L 550.43707 #### [facility] [address] [place] [address]# [phone] CHEST (TWO VIEWS) - CXRon CHEST (TWO VIEWS) - CXR [address] [address] Name: JEFF PORTILLO Phys: MARCO MOJICA M.D. : [birth year] Age: 25 Sex: F Acct: [id number] Loc: RAD Exam Date: 08/21/20 Status: REG CLI Radiology No.: [id number] Unit Number: [id number] Exam # Type/Exam [id number] RAD / CHEST (TWO VIEWS) - CXR [...] By: LEI MAYFIELD D.O. Tests performed at: [place] [id number] Normal [facility] INSULINon 09-27-2019 INSULIN 23.2 uIU/mL Normal 2.6-24.9 [facility] Comment on above: Result Comment: Perf ormed at: - [facility] [address] [place], [place] [id number] Occupational Health Nurse Manager: Juan M Nielsen PhD, Phone: [phone] Performed By: #### L 800.0950, L800.1420 #### [place] [address] TESTOSFREEon 09-27-2019 TESTOSFREE 3.8 pg/mL Normal 0.0-4.2 [facility] Comment on above: Result Comment: Perf ormed at: BN - [facility] [address] [id number] Occupational Health Nurse Manager: Cait Reyes MD, Phone: [phone] Performed By: #### L 800.0950, L800.1420 #### [place] [address] CBC NO DIFon 09-21-2019 Erythrocyte distribution width (RBC) [Ratio] 12.5 % Normal 12.5-15.7 [facility] Comment on above: Performed By: #### L 200.0005 #### ML - LABORATORY [address] [place] [address] Hematocrit (Bld) [Volume fraction] 40.4 % Normal 36.0-48.0 [facility] Comment on above: Performed By: #### L 200.0005 #### [facility] - LABORATORY [address] [place] [address] Hemoglobin (Bld) [Mass/Vol] 13.9 g/dL Normal 12.0-16.0 [facility] Comment on above: Performed By: #### L 200.0005 #### ML - [facility] [address] [place] [address] MCH (RBC) [Entitic mass] 29.7 pg Normal 28.5-32.9 [facility] Comment on above: Performed By: #### L 200.0005 #### ML - [facility] [address] [place] [address] MCHC (RBC) [Mass/Vol] 34.3 g/dL Normal 33.0-36.0 [facility] Comment on above: Performed By: #### L 200.0005 #### [facility] - LABORATORY [address] [place] [address] MCV (RBC) [Entitic vol] 86.7 fL Normal 80.0-99.0 [facility] Comment on above: Performed By: #### L 200.0005 #### ML - LABORATORY [address] [place] [address] Platelet mean volume (Bld) [Entitic vol] 10.1 fL High 7.5-9.5 [facility] Comment on above: Performed By: #### L 200.0005 #### [facility] - LABORATORY [address] [place] [address] PLT 219 X10(3) Normal 150-450 [facility] Comment on above: Performed By: #### L 200.0005 #### ML [facility] [address] [place] [address] RBC 4.66 x10(6) Normal 3.30-5.00 [facility] Comment on above: Performed By: #### L 200.0005 #### ML - LABORATORY [address] [place] [address] WBCHS 6.3 x10(3) Normal 4.5-10.0 [facility] Comment on above: Performed By: #### L 200.0005 #### ML - LABORATORY [address] [place] [address] FSHon 09-21-2019 FSH 7.16 mIU/mL Normal [facility] Comment on above: Result Comment: Fema le Ref. Ranges Follicular Phase: 3.5 - 12.5 mIU/mL Ovulation Phase: 4.7 - 12.5 mIU/mL Luteal Phase : 1.7 - 7.7 mIU/mL Post-Menopause : 25.8-134.8 mIU/mL Performed By: #### L 304.0170, L100.0060, L304.0140, L304.0480, L304.0180 #### ML - LABORATORY [address] [place] [address] GLUCOSEon 09-21-2019 Glucose [Mass/Vol] 92 mg/dL Normal 74-106 [facility] Comment on above: Performed By: #### L 304.0170, L100.0060, L304.0140, L304.0480, L304.0180 #### - LABORATORY [address] [place] [address] LHon 09-21-2019 LH 9.12 mIU/mL Normal [facility] Comment on above: Result Comment: Fema le Ref. Ranges Follicular Phase : 2.4 - 12.6 mIU/mL Ovulatory Peak : 14.0 - 95.6 mIU/mL Luteal Phase : 1.0 - 11.4 mIU/mL Post-Menopausal : 7.7 - 58.5 mIU/mL Performed By: #### L 304.0170, L100.0060, L304.0140, L304.0480, L304.0180 #### [facility] [address] [place] [address] TESTOSTERONE TOon 09-21-2019 TESTOSTERONE TO 44.67 ng/dL Normal 8.40-48.1 [facility] Comment on above: Performed By: #### L 304.0170, L100.0060, L304.0140, L304.0480, L304.0180 #### - LABORATORY [address] [place] [address] TSHon 09-21-2019 TSH 1.40 uIU/mL Normal 0.27-4.20 [facility] Comment on above: Performed By: #### L 304.0170, L100.0060, L304.0140, L304.0480, L304.0180 #### - LABORATORY [address] [place] [address] Vital Signs Date Time Vital Sign Value Performing Clinician Facility 09-01-2024 15:49-0400 Body height 172.72 cm No Primary Care Physician [facility] 09-01-2024 15:46-0400 Body mass index (BMI) [Ratio] 36.3 kg/m2 No Primary Care Physician [facility] 09-01-2024 15:46-0400 Body weight 108.46 kg No Primary Care Physician [facility] 09-01-2024 15:46-0400 Diastolic blood pressure 86 mm[Hg] No Primary Care Physician [facility] 09-01-2024 15:46-0400 Systolic blood pressure 131 mm[Hg] No Primary Care Physician [facility] 08-27-2024 13:02-0400 Body height 172.72 cm No Primary Care Physician [facility] 08-27-2024 13:02-0400 Body mass index (BMI) [Ratio] 35.9 kg/m2 No Primary Care Physician [facility] 08-27-2024 13:02-0400 Body weight 107.16 kg No Primary Care Physician [facility] 08-27-2024 13:02-0400 Diastolic blood pressure 87 mm[Hg] No Primary Care Physician [facility] 08-27-2024 13:02-0400 Systolic blood pressure 131 mm[Hg] No Primary Care Physician [facility] 08-16-2024 15:46-0400 Body height 172.72 cm No Primary Care Physician [facility] 08-16-2024 15:46-0400 Diastolic blood pressure 93 mm[Hg] No Primary Care Physician [facility] 08-16-2024 15:46-0400 Systolic blood pressure 130 mm[Hg] No Primary Care Physician [facility] 08-16-2024 15:43-0400 Body mass index (BMI) [Ratio] 36.2 kg/m2 No Primary Care Physician [facility] 08-16-2024 15:43-0400 Body weight 108.18 kg No Primary Care Physician [facility] 08-13-2024 15:56-0400 Body height 172.72 cm No Primary Care Physician [facility] 08-13-2024 15:55-0400 Body mass index (BMI) [Ratio] 35.6 kg/m2 No Primary Care Physician [facility] 08-13-2024 15:55-0400 Body weight 106.19 kg No Primary Care Physician [facility] 08-13-2024 15:55-0400 Diastolic blood pressure 82 mm[Hg] No Primary Care Physician [facility] 08-13-2024 15:55-0400 Systolic blood pressure 130 mm[Hg] No Primary Care Physician [facility] 08-09-2024 14:19-0400 Diastolic blood pressure 88 mm[Hg] No Primary Care Physician [facility] 08-09-2024 14:19-0400 Systolic blood pressure 135 mm[Hg] No Primary Care Physician [facility] 08-09-2024 14:00-0400 Body height 172.72 cm No Primary Care Physician [facility] 08-09-2024 14:00-0400 Body mass index (BMI) [Ratio] 36.2 kg/m2 No Primary Care Physician [facility] 08-09-2024 14:00-0400 Body weight 108.18 kg No Primary Care Physician [facility] 08-03-2024 14:54-0400 Body height 172.72 cm No Primary Care Physician [facility] 08-03-2024 14:54-0400 Body mass index (BMI) [Ratio] 36 kg/m2 No Primary Care Physician [facility] 08-03-2024 14:54-0400 Body weight 107.5 kg No Primary Care Physician [facility] 08-03-2024 14:54-0400 Diastolic blood pressure 91 mm[Hg] No Primary Care Physician [facility] 08-03-2024 14:54-0400 Systolic blood pressure 139 mm[Hg] No Primary Care Physician [facility] 07-27-2024 10:15-0400 Body mass index (BMI) [Ratio] 35.6 kg/m2 No Primary Care Physician [facility] 07-27-2024 10:15-0400 Body weight 106.19 kg No Primary Care Physician [facility] 07-27-2024 10:15-0400 Diastolic blood pressure 88 mm[Hg] No Primary Care Physician [facility] 07-27-2024 10:15-0400 Systolic blood pressure 138 mm[Hg] No Primary Care Physician [facility] 07-25-2024 13:26-0400 Body temperature 97.6 [degF] No Primary Care Physician [facility] 07-25-2024 13:26-0400 Diastolic blood pressure 78 mm[Hg] No Primary Care Physician [facility] 07-25-2024 13:26-0400 Heart rate 80 /min No Primary Care Physician [facility] 07-25-2024 13:26-0400 Respiratory rate 15 /min No Primary Care Physician [facility] 07-25-2024 13:26-0400 SaO2% (BldA) [Mass fraction] 98 % No Primary Care Physician [facility] 07-25-2024 13:26-0400 Systolic blood pressure 118 mm[Hg] No Primary Care Physician [facility] 07-25-2024 11:13-0400 Body height 172.72 cm No Primary Care Physician [facility] 07-25-2024 11:130400 Body mass index (BMI) [Ratio] 35 kg/m2 No Primary Care Physician [facility] 07-25-2024 11:130400 Body weight 104.55 kg No Primary Care Physician [facility] 07-16-2024 14:240400 Body height 172.72 cm No Primary Care Physician [facility] 07-16-2024 14:24-0400 Body mass index (BMI) [Ratio] 35.8 kg/m2 No Primary Care Physician [facility] 07-16-2024 14:240400 Body weight 106.82 kg No Primary Care Physician [facility] 07-16-2024 14:24-0400 Diastolic blood pressure 76 mm[Hg] No Primary Care Physician [facility] 07-16-2024 14:24-0400 Systolic blood pressure 116 mm[Hg] No Primary Care Physician [facility] 04-12-2024 08:51-0500 Heart rate 100 /min Domenico Long APRN-GIZZARD PULLER Work Phone: [facility] 04-12-2024 08:18-0500 Body temperature 98.4 [degF] Domenico Long APRN-GIZZARD PULLER Work Phone: [facility] 04-12-2024 08:18-0500 Body weight 106.59 kg Domenico Long APRN-GIZZARD PULLER Work Phone: [facility] 04-12-2024 08:18-0500 Diastolic blood pressure 82 mm[Hg] Domenico Long CHORUS MASTER-GIZZARD PULLER Work Phone: [facility] 04-12-2024 08:18-0500 Respiratory rate 19 /min Domenico Long CHORUS MASTER-GIZZARD PULLER Work Phone: [facility] 04-12-2024 08:18-0500 SaO2% (BldA) [Mass fraction] 97 % Domenico Long CHORUS MASTER-GIZZARD PULLER Work Phone: [facility] 04-12-2024 08:18-0500 Systolic blood pressure 141 mm[Hg] Domenico Long CHORUS MASTER-GIZZARD PULLER Work Phone: [facility] 07-02-2023 15:00-0400 Body height 172.72 cm SWEATBAND PERFORATOR-C Esperanza Dotson Work Phone: [facility] 07-02-2023 15:00-0400 Body mass index (BMI) [Ratio] 34.2 kg/m2 SWEATBAND PERFORATOR-C Esperanza Dotson Work Phone: [facility] 07-02-2023 15:00-0400 Body weight 102.17 kg SWEATBAND PERFORATOR-C Esperanza Dotson Work Phone: [facility] 07-02-2023 15:00-0400 Diastolic blood pressure 82 mm[Hg] SWEATBAND PERFORATOR-C Esperanza Dotson Work Phone: [facility] 07-02-2023 15:00-0400 Systolic blood pressure 130 mm[Hg] SWEATBAND PERFORATOR-C Esperanzahardik Dotson Work Phone: [facility] 02-21-2023 13:10-0500 Diastolic Blood Pressure Non-Invasive 73 mm[Hg] LIZ BURRTERE CHORUS MASTER-GIZZARD PULLER [facility] 02-21-2023 13:10-0500 Heart rate 93 /min LIZ BATERS CHORUS MASTER-GIZZARD PULLER [facility] 02-21-2023 13:10-0500 Respiratory rate 16 /min LIZTHEO BURRERS CHORUS MASTER-GIZZARD PULLER [facility] 02-21-2023 13:10-0500 Systolic Blood Pressure Non-Invasive 117 mm[Hg] LIZ BATERS CHORUS MASTER-GIZZARD PULLER [facility] 02-21-2023 12:55-0500 Diastolic Blood Pressure Non-Invasive 65 mm[Hg] LIZ BATERS CHORUS MASTER-GIZZARD PULLER [facility] 02-21-2023 12:55-0500 Heart rate 91 /min LIZ BATERS CHORUS MASTER-GIZZARD PULLER [facility] 02-21-2023 12:55-0500 Respiratory rate 16 /min LIZ BATERS CHORUS MASTER-GIZZARD PULLER [facility] 02-21-2023 12:55-0500 Systolic Blood Pressure Non-Invasive 111 mm[Hg] LIZ BATERS CHORUS MASTER-GIZZARD PULLER [facility] 02-21-2023 12:40-0500 Diastolic Blood Pressure Non-Invasive 78 mm[Hg] LIZ BATERS CHORUS MASTER-GIZZARD PULLER [facility] 02-21-2023 12:40-0500 Heart rate 91 /min LIZ BATERS CHORUS MASTER-GIZZARD PULLER [facility] 02-21-2023 12:40-0500 Respiratory rate 16 /min LIZ BATERS CHORUS MASTER-GIZZARD PULLER [facility] 02-21-2023 12:40-0500 Systolic Blood Pressure Non-Invasive 131 mm[Hg] LIZ BATERS CHORUS MASTER-GIZZARD PULLER [facility] 02-21-2023 11:40-0500 Heart rate 71 /min LIZ BATERS CHORUS MASTER-GIZZARD PULLER [facility] 02-21-2023 11:35-0500 Heart rate 76 /min LIZ BATERS CHORUS MASTER-GIZZARD PULLER [facility] 02-21-2023 11:30-0500 Heart rate 75 /min LIZ BATERS CHORUS MASTER-GIZZARD PULLER [facility] 02-21-2023 09:04-0500 Body height 172 cm LIZ ALBERTO CHORUS MASTER-GIZZARD PULLER [facility] 02-21-2023 09:04-0500 Body temperature 98.6 [degF] LIZ ALBERTO CHORUS MASTER-GIZZARD PULLER [facility] 02-21-2023 09:04-0500 Body weight 101 kg LIZ ALBERTO CHORUS MASTER-GIZZARD PULLER [facility] 02-21-2023 09:04-0500 Body weight 34.14 kg/m2 LIZ ALBERTO CHORUS MASTER-GIZZARD PULLER [facility] 02-15-2023 11:53-0500 Body temperature 98.6 [degF] AUGIE HANNAH MD [facility] 02-15-2023 11:53-0500 Body weight 101 kg AUGIE HANNAH MD [facility] 02-15-2023 11:53-0500 Diastolic Blood Pressure Non-Invasive 116 mm[Hg] AUGIE HANNAH MD [facility] 02-15-2023 11:53-0500 Heart rate 100 /min AUGIE HANNAH MD [facility] 02-15-2023 11:53-0500 Respiratory rate 16 /min AUGIE HANNAH MD [facility] 02-15-2023 11:53-0500 Systolic Blood Pressure Non-Invasive 169 mm[Hg] AUGIE HANNAH MD [facility] 2022 11:50-0500 Body temperature 97.9 [degF] Isi Martell CHORUS MASTER.GIZZARD PULLER Work Phone: [facility] 2022 11:50-0500 Body weight 102.51 kg Isi Martell CHORUS MASTER.GIZZARD PULLER Work Phone: [facility] 2022 11:50-0500 Diastolic blood pressure 89 mm[Hg] Isi Martell APRN.GIZZARD PULLER Work Phone: [facility] 2022 11:50-0500 Heart rate 49 /min Isi Martell APRN.GIZZARD PULLER Work Phone: [facility] 2022 11:50-0500 SaO2% (BldA) [Mass fraction] 96 % Isishon Martell APRN.GIZZARD PULLER Work Phone: [facility] 2022 11:50-0500 Systolic blood pressure 140 mm[Hg] Isi Martell APRN.GIZZARD PULLER Work Phone: [facility] 09-11-2021 18:26-0400 Body height 172.7 cm No Physician [facility] 09-11-2021 18:26-0400 Body mass index (BMI) [Ratio] 34.21 kg/m2 No Physician [facility] 09-11-2021 18:26-0400 Body temperature 99.1 [degF] No Physician [facility] 09-11-2021 18:26-0400 Body weight 102.06 kg No Physician [facility] 09-11-2021 18:26-0400 Diastolic blood pressure 99 mm[Hg] No Physician [facility] 09-11-2021 18:26-0400 Heart rate 136 /min No Physician [facility] 09-11-2021 18:26-0400 SaO2% (BldA) [Mass fraction] 92 % No Physician [facility] 09-11-2021 18:26-0400 Systolic blood pressure 136 mm[Hg] No Physician [facility] 07-20-2021 01:01-0400 Diastolic blood pressure 78 mm[Hg] Gabriella Ohara MD Work Phone: [facility] 07-20-2021 01:01-0400 Heart rate 89 /min Gabriella Ohara MD Work Phone: [facility] 07-20-2021 01:01-0400 Respiratory rate 16 /min Gabriella Ohara MD Work Phone: [employer] 07-20-2021 01:01-0400 SaO2% (BldA) [Mass fraction] 100 % Gabriella Ohara MD Work Phone: [employer] 07-20-2021 01:01-0400 Systolic blood pressure 122 mm[Hg] Gabriella Ohara MD Work Phone: [employer] 07-19-2021 18:15-0400 Body height 172.7 cm Gabriella Ohara MD Work Phone: [employer] 07-19-2021 18:15-0400 Body mass index (BMI) [Ratio] 34.52 kg/m2 Gabriella Ohara MD Work Phone: [employer] 07-19-2021 18:15-0400 Body weight 102.97 kg Gabriella Ohara MD Work Phone: [employer] 07-19-2021 18:08-0400 Body temperature 99 [degF] Gabriella Ohara MD Work Phone: [facility] Encounters Encounter Date Encounter Type Care Provider Facility Start: 09-30-2024 ambulatory No Primary Car e Physician Facility:[facility] Start: 09-01-2024 End: 09-01-[address] [place] Leigh DO -[facility] Work Phone: Start: 09-01-2024 End: 09-01-2024 ambulatory No Primary Care Physician [facility] Work Phone: Start: 09-01-2024 End: 09-01-2024 ambulatory [place] Facility:[facility] Start: 08-27-2024 End: 08-27-2024 ambulatory No Primary Care Physician [facility] Work Phone: Start: 08-27-2024 End: 08-27-[address] [place] Leigh DO -[facility] Work Phone: Start: 08-27-2024 End: 08-27-2024 ambulatory [place] Facility:[facility] Start: 08-16-2024 End: 08-16-2024 Patient encounter procedure Aaliyah Borrego [facility] -[facility] Work Phone: Start: 08-16-2024 End: 08-16-2024 ambulatory No Primary Care Physician [facility] Work Phone: Start: 08-13-2024 End: 08-13-2024 Patient encounter procedure Felicia Kaur [facility] -[facility] Work Phone: Start: 08-13-2024 End: 08-13-2024 ambulatory No Primary Care Physician [facility] Work Phone: Start: 08-09-2024 End: 08-09-2024 Patient encounter procedure Aaliyah Borrego [facility] -[facility] Work Phone: Start: 08-09-2024 End: 08-09-2024 ambulatory No Primary Care Physician [facility] Work Phone: Start: 08-03-2024 End: 08-03-2024 ambulatory No Primary Care Physician [facility] Work Phone: Start: 08-03-2024 End: 08-03-[address] [place] Leigh DO -[facility] Work Phone: Start: 08-03-2024 End: 08-03-2024 Patient encounter procedure Aaliyah Borrego [facility] -[facility] Work Phone: Start: 08-03-2024 End: 08-03-2024 ambulatory No Primary Care Physician [facility] Work Phone: Start: 08-03-2024 End: 08-03-2024 ambulatory [place] Facility:[facility] Start: 07-27-2024 End: 07-27-2024 ambulatory No Primary Care Physician [facility] Work Phone: Start: 07-27-2024 End: 07-27-[address] [place] Leigh DO -[facility] Work Phone: Start: 07-27-2024 End: 07-27-[address] [place] Leigh DO -[facility] Work Phone: Start: 07-27-2024 End: 07-27-2024 ambulatory No Primary Care Physician [facility] Work Phone: Start: 07-27-2024 End: 07-27-2024 ambulatory [place] Facility:[facility] Start: 07-25-2024 End: 07-25-2024 Emergency department patient visit No Primary Care Physician -Emergency Department Work Phone: Start: 07-21-2024 End: 07-21-2024 ambulatory No Primary Care Physician [facility] Work Phone: Start: 07-21-2024 End: 07-21-[address] [place] Leigh DO -Laboratory Work Phone: Start: 07-21-2024 End: 07-21-2024 ambulatory No Primary Care Physician Facility:[facility] Start: 07-19-2024 End: 07-19-2024 ambulatory No Primary Care Physician [facility] Work Phone: Start: 07-19-2024 End: 07-19-2024 Patient encounter procedure Aaliyah Borrego CNM -Ultrasound [facility] Work Phone: Start: 07-19-2024 End: 07-19-2024 ambulatory No Primary Care Physician Facility:[facility] Start: 07-16-2024 End: 07-16-[address] Diana Leigh DO -[facility] Work Phone: Start: 07-16-2024 End: 07-16-2024 ambulatory No Primary Care Physician Facility:[facility] Start: 07-15-2024 End: 07-15-2024 Emergency department patient visit MARCO MOJICA Facility:[facility] Start: 07-08-2024 End: 07-08-2024 Patient encounter procedure Aaliyah Borrego CNM -Laboratory Work Phone: Start: 07-08-2024 End: 07-08-2024 ambulatory No Primary Care Physician Facility:[facility] Start: 07-06-2024 End: 07-06-2024 Patient encounter procedure Aaliyah Borrego CNM -Laboratory Work Phone: Start: 07-06-2024 End: 07-06-2024 ambulatory No Primary Care Physician Facility:[facility] Start: 04-12-2024 End: 04-12-2024 Office outpatient new 45 minutes Domenico Long CHORUS MASTER-GIZZARD PULLER Work Phone: [facility] [place] Comment on above: COVID-19 (Primary Dx ); Acute cough; SOB (shortness of breath); Fatigue, unspecified type; Bilateral impacted cerumen; At increased risk of exposure to COVID-19 virus; Possible ; PND (post-nasal drip); Non-recurrent acute suppurative otitis media of both ears without spontaneous rupture of tympanic membranes Start: 03-01-2024 End: 03-01-2024 ambulatory No Primary Care Physician Facility:[facility] Start: 02-01-2024 End: 02-01-2024 ambulatory No Primary Care Physician Facility:[facility] Start: 01-02-2024 End: 01-02-2024 ambulatory No Primary Care Physician Facility:[facility] Start: 12-04-2023 End: 12-04-2023 ambulatory Marco Mojica Facility:[facility] Start: 10-30-2023 End: 10-30-2023 ambulatory Marco Mojica Facility:[facility] Start: 10-17-2023 End: 10-17-2023 ambulatory Marco Mojica Facility:[facility] Start: 07-02-2023 End: 07-02-2023 ambulatory SWEATBAND PERFORATOR-C Esperanza Dotson Work Phone: [facility] Work Phone: Start: 07-02-2023 End: 07-02-2023 Patient encounter procedure SWEATBAND PERFORATOR-Monserrat Dotson Work Phone: [facility]-Laboratory, Specimen Work Phone: Start: 07-02-2023 End: 07-02-2023 Patient encounter procedure SWEATBAND PERFORATOR-Monserrat Dotson Work Phone: [facility] Work Phone: Start: 03-31-2023 ambulatory CARLEE CARRASCO [employer] MA[employer]ZARD P[employer]ER Facility:B Start: 02-21-2023 End: 02-21-2023 ambulatory LIZ ALBERTO [employer] MA[employer]ZARD P[employer]ER Facility:A Start: 02-21-2023 End: 02-21-2023 Patient encounter procedure LIZ ALBERTO CHORUS MASTER-GIZZARD PULLER [facility] Start: 02-20-[address] MARCO MOJICA MD [facility] ity:A Start: 02-19-2023 ambulatory LIZ ALBERTO [employer]ORUS MASTER-GIZZARD PULLER Fa cility:A Start: 02-19-2023 End: 02-20-2023 ambulatory LIZ ALBERTO [employer] MASTER-GIZZARD PULLER Facility:B Start: 02-19-2023 End: 02-19-2023 Patient encounter procedure LIZ ALBERTO CHORUS MASTER-GIZZARD PULLER [facility] Start: 02-15-2023 End: 02-15-2023 Emergency department patient visit DR MARCO MOJICA MD Facility:B Start: 02-15-2023 End: 02-15-2023 Emergency department patient visit AUGIE HANNAH MD [facility] Start: 05-30-2022 End: 05-31-2022 ambulatory CATY BYRNE MD~[id number] Facility:[facility] Start: 03-07-2022 End: 03-07-[address] MARCO MOJICA MD [facility] Start: 02-06-2022 Telephone encounter Isi Martell CHORUS MASTER.GIZZARD PULLER Work Phone: [facility] Comment on above: Results Start: 2022 ambulatory FC-ISI MARTELL Fa cility:[facility] Start: 2022 End: 2022 Subsequent hospital visit by physician Provider Keyshawn [facility] Start: 2022 End: 2022 ambulatory MARCO MOJICA Facility:[facility] Start: 2022 End: 2022 Patient encounter procedure Isi Linda Martell APRN.CNP Work Phone: [facility] Comment on above: Dysuria (Primary Dx) ; Vaginal discharge Start: 09-12-2021 End: 09-12-2021 ambulatory NONE NONE Facility:[facility] Start: 09-11-2021 End: 09-11-2021 Emergency department patient visit NO PCP PHYSICIAN [facility] Start: 09-11-2021 End: 09-11-2021 Emergency department patient visit No Physician [facility] Start: 09-11-2021 End: 09-11-2021 Evaluation and management of inpatient No Physician [facility] Start: 07-19-2021 End: 07-20-2021 Emergency department patient visit GABRIELLA OHARA [facility] Start: 07-19-2021 End: 07-20-2021 Emergency department patient visit Gabriella Ohara MD Work Phone: [facility] Comment on above: Miscarriage (Primary Dx) Start: 07-19-2021 End: 07-20-2021 Evaluation and management of inpatient Gabriella Ohara MD Work Phone: [facility] Start: 07-19-2021 End: 07-19-2021 Subsequent hospital visit by physician Dat Morrow MD Work Phone: [facility] Comment on above: N92.5 Start: 07-17-2021 End: 07-17-2021 Subsequent hospital visit by physician Dat Morrow MD Work Phone: [facility] Comment on above: N92.5 Start: 03-13-2021 End: 03-14-2021 ambulatory NONE NONE Facility:[facility] Start: 03-08-2021 End: 03-08-2021 Patient encounter procedure GILLIAN VO [facility] Start: 04-02-2020 Patient encounter procedure Lencho Solis PA-C Work Phone: [facility] Start: 04-02-2020 Progress Note Lencho Will Zapata A-C Work Phone: [facility] Procedures Date Procedure Procedure Detail Performing Clinician Start: 09-01-2024 Urine culture No Primar y Care Physician Start: 08-27-2024 Hepatitis C antibody measurement No Primary Care Physician Comment on above: Reactive: Presumptiv e evidence of antibodies to HCV. Follow CDC recommendations for supplemental testing.Non-Reactive: Antibodies to HCV were not detected; does not exclude the possibility of exposure to HCVReactive Results are presumptive evidence of antibodies to HCV. Follow CDC recommendations for supplemental testing.Order confirmation testing: HCV Quant by PCR testing - HCVPCR #[id number] Non Reactive: < 0.8 Equivocal: >/= 0.8 to < 1.0 Reactive: >/= 1.0The CDC requires that a reactive/equivocal HCV antibody result be sent out for confirmation. HCV Quant by PCR testing. Start: 08-27-2024 Procedure No Primary Care Physician Start: 08-27-2024 Rubella IgG measurement No Primary Care Physician Comment on above: Antibody Result: Int erpretationNon-Reactive: Non- ImmuneReactive: ImmuneThe following results were obtained with the Ele[employer]ys Rubella IgG assay. Results from assays of other manufacturers cannot be used interchangeably. Start: 08-27-2024 Serologic test for syphilis No Primary Care Physician Start: 08-03-2024 Methadone measurement, urine No Primary [...] - 214.0 Postmenopausal 0.0 - 0.1Performed at: [facility] [place] [id number] [place], [place] [id number] Director: Juan M Nielsen PhD, Phone: [phone] Start: 07-19-2024 Transvaginal obstetr ic ultrasonography No Primary Care Physician Start: 07-15-2024 Antibody screen MARCO ROMERO Comment on above: Order Comment: Speci men Type: BLOOD SPECIMEN Ordering Facility: [facility] Address: [address] [place] [address] Performed By: #### [place], [id number] #### [facility] CLIA [id number] [address] [place] [address] Start: 04-12-2024 Urine test visual color cmprsn meths Domenico Long [employer] MASTER[employer]ZARD PULLER Work Phone: Start: 04-12-2024 EAR CERUMEN REMOVAL Vern demetrio Long [employer]US MASTER-[employer]ZARD PULLER Work Phone: Start: 04-12-2024 Iaadiadoo influenza [facility] demetrio Long CHORUS MASTER-GIZZARD PULLER Work Phone: Start: 04-12-2024 SARS-CoV-2 (COVID-19 ) Ag [Presence] in Respiratory specimen by Rapid immunoassay Domenico Long CHORUS MASTER-GIZZARD PULLER Work Phone: Start: 07-02-2023 Genital Culture SWEATBAND PERFORATOR-C Camila Dotson Work Phone: Start: 07-02-2023 Investigation of tra nsfusion reaction SWEATBAND PERFORATOR-C Esperanza Dotson Work Phone: Start: 2022 Bacteria identified in Urine by Culture Isi Martell APRN.GIZZARD PULLER Work Phone: Start: 2022 BACTERIAL VAGINOSIS NAAT Isi Linda Smooth CHORUS MASTER.GIZZARD PULLER Work Phone: Start: 2022 GONORRHEA/CHLAMYDIA NAAT Isi Mckeon Smooth CHORUS MASTER.GIZZARD PULLER Work Phone: Start: 2022 TRICHOMONAS VAGINALIS NAAT Isi L Smooth CHORUS MASTER.GIZZARD PULLER Work Phone: Start: 2022 Urine test visual color cmprsn meths Isi Mckeon Smooth CHORUS MASTER.GIZZARD PULLER Work Phone: Start: 07-20-2021 Antibody screen GABRIELLA MURRIETA Comment on above: Performed By: #### 1 [id number] #### [facility] [address] [place] [address] Start: 07-19-2021 Antibody screen rbc each serum [...] Work Phone: None (qualifier value) LIZ ALBERTO [employer]US MASTER[employer]ZARD P[employer]ER Plan of Treatment Date Care Activity Detail Author Start: 2047 Zoster Vaccines (1 of 2) Zoste r Vaccines (1 of 2) [facility] Start: 09-01-2024 Bacteria identified in Urine by Culture Urine Culture [facility] Start: 09-01-2024 [facility] Start: 08-27-2024 CBC W Auto Different ial panel - Blood [facility] Start: 08-27-2024 Hemoglobin A1c/Hemoglobin.total in Blood [facility] Start: 08-27-2024 Hepatitis C antibody measurement [facility] Start: 08-27-2024 Rubella IgG measurement [facility] Start: 08-27-2024 Serologic test for syphilis [facility] Start: 08-27-2024 [facility] Start: 08-27-2024 Procedure [facility] Start: 07-25-2024 Bacteria identified in Urine by Culture Urine Culture [facility] Start: 07-25-2024 [facility] Start: 07-25-2024 [facility] Start: 11-09-2023 COVID-19 Vaccine ( season) COVID-19 Vaccine () [facility] Start: 11-09-2023 Influenza vaccination Influenza Vacc ine (#1) [facility] Start: 11-08-2022 Influenza vaccination Influenza Vacc ine (#1) [facility] Start: 03-10-2022 Depression Assessment Depression Ass essment [facility] Start: 2022 End: 04-06-2022 Bacteria identified in Urine by Culture URINE CULTURE Microbiology Routine Dysuria Expected: 2022, Expires: 04/06/2022 [facility] Work Phone: Comment on above: Expected: 2022 , Expires: 04/06/2022 Start: 2022 End: 04-06-2022 Chlamydia trachomatis+Neisseria gonorrhoeae DNA [Presence] in Urine by PETER with probe detection GC/CHLAMYDIA AMPLIF, URINE Microbiology Routine Dysuria Vaginal discharge Expected: 2022, Expires: 04/06/2022 [facility] Work Phone: Comment on above: Expected: 2022 , Expires: 04/06/2022 Start: 11-08-2021 Influenza vaccination [facility] Start: 07-19-2021 Adolescent depressio n screening assessment Depression Screening [facility] Start: 07-19-2021 Hepatitis C screening Hepatitis C [facility] Start: 07-19-2021 HIV screening HIV Screening [facility] Start: 07-19-2021 Screening for Chlamy edin trachomatis Gonorrhea/Chlamydia Screening [facility] Start: 07-19-2021 Social Influencers o f Health Screening Social Influencers of Health Screening [facility] Start: 03-10-2021 DEPRESSION ASSESSMENT DEPRESSION ASS ESSMENT [facility] Start: 11-10-2019 DTaP/Tdap/Td Vaccine s (2 - Td or Tdap) DTaP/Tdap/Td Vaccines (2 - Td or Tdap) [facility] Start: 2018 PAP TESTING PAP TESTING [facility] Start: 2018 Screening for malign ant neoplasm of cervix [facility] Start: 02-05-2016 DTaP,Tdap,and Td Vac cines (1 - Tdap) DTaP,Tdap,and Td Vaccines (1 - Tdap) [facility] Start: 02-05-2016 Hepatitis B Vaccines (1 of 3 - 19+ 3-dose series) Hepatitis B Vaccines (1 of 3 - 19+ 3-dose series) [facility] Start: 02-05-2016 Pneumococcal Vaccine : Pediatrics and At-Risk Adult Patients (1 of 2 - PCV) Pneumococcal Vaccine: Pediatrics and At-Risk Adult Patients (1 of 2 - PCV) [facility] Start: 02-05-2016 Urine microalbumin profile [facility] Start: 2015 HEPATITIS C SCREENING HEPATITIS C [facility] Start: 2015 Hepatitis C screening Hepatitis C [facility] Start: 2015 HIV SCREENING HIV SCREENING [facility] Start: 2011 PEDS TO ADULT TRANSI TION ANNUAL ASSESSMENT PEDS TO ADULT TRANSITION ANNUAL ASSESSMENT [facility] Start: 2010 Varicella vaccination Varicell a Vaccines (1 of 2 - 13+ 2-dose series) [facility] Start: 2009 Adult depression scr eening assessment DEPRESSION SCREENING [facility] Start: 2009 PEDS TO ADULT TRANSI TION INITIAL DISCUSSION PEDS TO ADULT TRANSITION INITIAL DISCUSSION [facility] Start: 02-05-2008 HPV VACCINE (1 - 2-d ose series) HPV VACCINE (1 - 2-dose series) [facility] Start: 02-05-2008 HPV Vaccines (1 - 2- dose series) HPV Vaccines (1 - 2-dose series) [facility] Start: 2007 MENINGOCOCCAL B: Con learning support aide based on risk (1 of 2 - Risk Bexsero 2-dose series) MENINGOCOCCAL B: Consider based on risk (1 of 2 - Risk Bexsero 2-dose series) [facility] Start: 2006 HPV Vaccine (1 - 2-d ose series) HPV Vaccine (1 - 2-dose series) [facility] Start: 2002 COVID-19 VACCINE (#1) COVID-19 VACCI NE (#1) [facility] Start: 2002 COVID-19 Vaccine (1) COVID-19 Vaccin e (1) [facility] Start: 1998 MMR Vaccines (1 of 1 - Standard series) MMR Vaccines (1 of 1 - Standard series) [facility] Start: 1997 COVID-19 Vaccine (#1) COVID-19 Vacci ne (#1) [facility] Start: 1997 HEPATITIS B (1 of 3 - 3-dose series) HEPATITIS B (1 of 3 - 3-dose series) [facility] Start: 1997 Hepatitis B Vaccine (1 of 3 - 3-dose series) Hepatitis B Vaccine (1 of 3 - 3-dose series) [facility] Start: 1997 HIV screening HIV Screening [facility] Start: 1997 Lipid panel Lipid Panel [facility] Start: 1997 Yearly Adult Physical Yearly Adult P hysical [facility] BACTERIAL VAGINOSIS AMPLIFICATION BACTERIAL VAGINOSIS AMPLIFICATION Lab Routine Vaginal discharge Ordered: 2022 [facility] Work Phone: Comment on above: Ordered: 2022 HOMER / TRICHOMONA S AMPLIFICATION HOMER / TRICHOMONAS AMPLIFICATION Microbiology Routine Vaginal discharge Ordered: 2022 [facility] Work Phone: Comment on above: Ordered: 2022 CBC W Auto Different ial panel - Blood [facility] Chlamydia deoxyribon ucleic acid detection [facility] Chlamydia deoxyribon ucleic acid detection [facility] Drugs identified in Urine by Screen method [facility] Drugs identified in Urine by Screen method [facility] Drugs identified in Urine by Screen method [facility] Erythrocyte mean corpuscular volume determination [facility] Hematocrit [Volume Fraction] of Blood [facility] Hemoglobin [Mass/vol ume] in Blood [facility] Hemoglobin A1c/Hemoglobin.total in Blood [facility] Hepatitis B virus mackay rface Ag [Presence] in Serum [facility] Hepatitis C antibody measurement [facility] Leukocytes [#/volume ] in Blood [facility] Liquid based cervica l cytology screening [facility] Mean corpuscular hemoglobin concentration determination [facility] Mean corpuscular hemoglobin determination [facility] Neutrophil count [facility] Neutrophil percent differential count [facility] Patient referral [facility] Work Phone: Platelets [#/volume] in Blood [facility] Red blood cell count [facility] Red cell distributio n width determination [facility] Rubella IgG measurement [facility] Serologic test for syphilis [facility] Source specific culture [facility] Urine culture [facility] Urine culture [facility] Immunizations Immunization Date Immunization Notes Care Provider Caryl severino 05-15-2023 influenza virus vaccine, unspecified formulation Domenioc Long APRN-GIZZARD PULLER Work Phone: [facility] Work Phone: Payers Date Payer Category Payer Private Health Insurance [id number] 2024 Private Health Insurance [id number] 2023 Self-pay 2023 Private Health Insurance [id number] 2023 Managed Care (Private) ROMMEL VILLEGAS [facility] PLAN [id number] 2022 Unknown [id number] 2019 Unknown [employer] PPO [id number] 2019-Present [phone] [address] [place] [address] PPO [id number] 2016 Private Health Insurance [facility] [id number] 2016-Present [address] [address] [place] [address] [id number]. [id number] 2016 Private Health Insurance [id number] .[id number]. [id number] 1997 Unknown [id number] 2.16840.1.121067.3.579.2. 1143 1997 Unknown [id number] 2.840.1.184864.3.579.2. 1143 1997 Unknown [id number] 2.840.1.073693.3.579.2. 419 1997 Unknown [id number] 2.16840.1.333194.3.579.2. 419 1997 Unknown [id number] 2.16840.1.134970.3.579.2. 627 1997 Unknown [id number] 2.16840.1.218252.3.579.2. 627 1997 Unknown [id number] 2.16840.1.463804.3.579.2. 627 1997 Unknown [id number] 2.16.840.1.477854.3.579.2. 627 1997 Unknown [id number] 2.16.840.1.371818.3.579.2. 627 1997 Unknown [id number] 2.16.840.1.447063.3.579.2. 627 1959 Private Health Insurance [id number] Unknown [id number] 2..840.1.968150.3.579.2. 283 Unknown [id number] 2.840.1.366405.3.579.2. 462 Unknown [id number] 2.840.1.647570.3.579.2. 462 Unknown [id number] 2.840.1.718397.3.579.2. 462 Unknown [id number] 2.840.1.403318.3.579.2. 462 Unknown [id number] 2.840.1.151586.3.579.2. 462 Unknown [id number] 2.840.1.601936.3.579.2. 462 Unknown [id number] 2.840.1.463880.3.579.2. 462 Unknown [id number] 2.840.1.056064.3.579.2. 462 Unknown [id number] 2.840.1.442769.3.579.2. 462 Unknown [id number] 2.840.1.879537.3.579.2. 462 Unknown [id number] 2.840.1.102483.3.579.2. 462 Unknown [id number] 2.840.1.932941.3.579.2. 462 Unknown [id number] 2.16840.1.197322.3.579.2. 462 Unknown [id number] 2.840.1.048798.3.579.2. 462 Unknown [id number] 2.16.840.1.245507.3.579.2. 462 Unknown [id number] 2.16.840.1.120697.3.579.2. 462 Unknown [id number] 2.16.840.1.083103.3.579.2. 462 Unknown [id number] 2.16.840.1.226582.3.579.2. 462 Unknown [id number] 2.16.840.1.781765.3.579.2. 462 Unknown [id number] 2.16.840.1.604656.3.579.2. 462 Unknown [id number] 2.16.840.1.116873.3.579.2. 462 Unknown [id number] 2.16.840.1.066460.3.579.2. 462 Unknown [id number] 2.16.840.1.892682.3.579.2. 462 Unknown [id number] 2.16.840.1.361270.3.579.2. 462 Social History Date Type Detail Facility Start: 04-20-2020 End: 02-15-2023 Never smoked tobacco (finding) [facility] Sex Assigned At [facility] Start: 06-22-2020 End: 07-27-2024 Tobacco smoking status ILIS Ex-smoker [facility] Start: 06-22-2020 End: 04-12-2024 Tobacco use and exposure Smokeless tobacco non-user [facility] Start: 1995 Sex Assigned At Not on file [facility] Start: 07-19-2021 Alcohol intake Lifetime non-d juan jose (finding) [facility] Start: 07-19-2021 History SDOH Alcohol Frequency 1 [facility] Start: 05-23-2020 End: 2022 Exposure to SARS-CoV-2 (event) Not sure [facility] History of tobacco use Current smoker [facility] Start: 2022 Alcohol intake Ex-drinker (finding) [facility] Start: 2022 End: 04-12-2024 History of Social function [facility] Start: 07-08-2017 End: 04-12-2024 Tobacco use panel [facility] National Score (1-100), lower number is lower risk Not on file [facility] Tobacco Nicotine Use: Va ping Product in Last 90 Days. Type: Electronic Cigarettes (Vaping). [facility] Start: 1995 Sex Assigned At Female [facility] Start: 04-12-2024 Tobacco smoking stat us ILIS Occasional tobacco smoker [facility] Work Phone: History of tobacco use Cigarette Smoker [facility] Work Phone: Functional Status Date Assessment Result Facility 02-21-2023 Functional Status Maintained [facility] 02-21-[address] [facility] 02-15-2023 Functional Status Independent [facility] 02-15-2023 Functional Status Standard Safet y ID band on, Call device within reach, Wheels locked, Upper/Half-Length side-rails up, Bedside Cart Locked, Safety level maintained [facility] Mental Status Date Assessment Result Facility 02-21-2023 Mental Status Orientation Oriented x 4 [facility] 02-15-2023 Mental Status Orientation Oriented x 4 [facility] 02-15-2023 Mental Status [facility] Clinical Notes 04-02-2020 to 09-01-2024 Note Date & Type Note Facility 09-01-2024 Progress note [facility] 09-01-2024 Progress note Note Date/Time September 01, 2024 4:30pm [facility] [address], [address] [place] [address] OFFICE VISIT Date of Service: 09/01/24 MR#: [id number] Acct: [id number] Name: JEFF RUSHING Rep #: [id number] : 1995 Provider: Dr. Caitlin Leigh DO Age/Sex: 29/F Location: [facility] Status: Signed Intake Vital Signs 07/27/24 11:04 08/27/24 13:02 09/01/24 15:46 09/01/24 15:49 Height 5 ft 8 in 5 ft 8 in 5 ft 8 in 5 ft 8 in Weight: 239 lb 2 oz BMI 36.3 BP 131/86 H Intake Visit Reasons: 12wk ob per [employer] Required: No Is patient in pain?: No Allergies Iodinated Contrast Media Allergy (Mild, Verified 09/01/24 15:46) Hives Medications ?Medication ?Instructions ?Recorded ?Confirmed ?Type progesterone micronized 200 mg 400 mg (2 x 200 mg) vag inal ONCE 07/06/24 09/01/24 Rx capsule (Prometrium) #60 caps multivit-min no.71-iron fum 28 cap PO 07/16/24 5 History mg-folate no.1 1 mg-dha 300 mg capsule (PNV-[place]) ondansetron 4 mg disintegrating 4 mg PO Q6H PRN nausea and 07/27/24 09/01/24 Rx tablet vomiting #30 tabs Last Menstrual Period: 05/29/24 Zika: Zika virus screening: Negative : No PFSH PFSH Medical History Recurrent loss Trichomonal vaginitis Seasonal allergies Shingles Cyst of spleen Surgical History [place] teeth removed Family History Grandmother Throat cancer, [...] physical activity do you participate in: none whitney/amish: Anglican seatbelt use: always do you feel safe at home: Yes additional social history: Significant other - Franck History 3 Elective abortions Hx Para 0 Spontaneous abortions 2 Hx # Term Pregnancies Ectopic pregnancies Hx # Pregnancies Multiple births # of living children 0 Past Pregnancies Del. Date Name GA/Weeks Outcome Route Bth Weight Infant Gen Labor Lgth Anesthesia Del [facility] Provider FOB 06/10/20 chemical 4 spontaneous 07/16/212021 5 spontaneous HPI 12wk ob per JV Details: JEFF RUSHING is a 29 year old who presents for routine OB visit. OB Visit JYOTHI Calculator Estimated Delivery Date Method Current WG Current Estimate 03/13/25 Ultrasound #1 12w 3d Other Estimates 03/05/25 LMP (Certain) 13w 4d 03/17/25 Ultrasound #2 11w 6d Expected Delivery Route/Plan Labor Preferences- CB/BF classes: [...] 130/82 Nega tive -?-?-?-?-?-?-?-?-?-?-?-?- Negative 176 -?-?-?-?-?-?-?-?-?-?-?-?- LC- suman mcleana rge lightening. +FHT. 08/16/24 -?-?-?-?-?-?-?-?-?-?-?-?- 10w 1d 238 lb 8 oz 145/87 130/93 Negative -?-?-?-?-?-?-?-?-?-?-?-?- Negative 176 -?-?-?-?-?-?-?-?-?-?-?-?- KW- no vb/crampi ng. is going to start doing home BPs. is leaving for vacation on friday. 08/27/24 -?-?-?-?-?-?-?-?-?-?-?-?- 11w 5d 236 lb 4 oz 131/87 -?-?-?-?-?-?-?-?-?-?-?-?- 150 -?-?-?-?-?-?-?-?-?-?-?-?- JV- No cramping or bleeding for almost 3 weeks. want to try intercourse again. has appt next week for heart beat check. 09/01/24 -?-?-?-?-?-?-?-?-?-?-?-?- 12w 3d 239 lb 2 oz 131/86 Nega tive -?-?-?-?-?-?-?-?-?-?-?-?- Negative 172 -?-?-?-?-?-?-?--?-?-?-?-?- JV_ no complaint s other than some nausea and urinary frequency. no signs of UTI. pt reassured by scan today. NIPT low risk. She will do a gender reveal tonight. ACOG First Trimester First Trimester: Desire for , Alcohol, Tobacco Cessation, Illicit/Recreational Drug/Substance Use, Intimate Partner Violence, Barriers to care, Unstable Housing, Communication Barriers, Environmental/Work Hazards, Anticipated Course of Care, Toxoplasmosis Precations, Use of Any medications, Sexual activity, Exercise, Dental Care, Sauna/Hot tub use, Seat Belt use, Childbirth classes/Hospital facilities, Travel, Indications for Ultrasound and Screening for Aneuploidy; Discussed Results POC Urinalysis Dip (Clinic) Office Urine Color Yellow Last Edit by Aubree Carson on 09/01/24 16:03 Office Urine Clarity Clear Last Edit by Aubree Carson on 09/01/24 16:03 Office Urine Glucose Negative Last Edit by Aubree Carson on 09/01/24 16: 03 Office Urine Ketones Negative Last Edit by Aubree Carson on 09/01/24 16: 03 Off Ur Spec Brooks 1.020 Last Edit by Aubree Carson on 09/01/24 16:03 Office Urine pH 5.0 Last Edit by Aubree Carson on 09/01/24 16:03 Office Urine Bilirubin Negative Last Edit by Aubree Carson on 09/01/24 16:03 Office Urine Urobilinogen 0.2 mg/dL Last Edit by Aubree Carson on 16:03 Office Urine Blood Negative Last Edit by Aubree Carson on 09/01/24 16:03 Office Urine Blood Hemolyzed Last Edit by Aubree Carson on 09/01/24 16: 03 Office Urine Protein Negative Last Edit by Aubree Carson on 09/01/24 16: 03 Office Urine Nitrate Negative Last Edit by Aubree Carson on 09/01/24 16: 03 Off Ur Leukocytes Negatve Last Edit by Aubree Carson on 09/01/24 16:03 Coding Level of Care Code OB Routine Diagnoses Spotting in early O26.859 Obesity affecting O99.210 History of recurrent miscarriages N96 Supervision of high-risk O09.90 12 weeks gestation of Z3A.12 Weeks of gestation: 12 weeks History of marijuana use F12.91 History of nicotine vaping Z87.891 Former smoker, stopped smoking in distant past Z87.891 Anxiety F41.9 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 Z34.90 Bicornuate [...] Supervision of high-risk : Status: Acute Comment: PRR , JYOTHI 03/05/25, FOB Franck (5) : Status: Acute Qualifiers: Weeks of gestation: 12 weeks Qualified Code(s): Z3A.12 - 12 weeks gestation of Comment: NIPT low risk, gender -Pt does NOT want to know at this time (6) History of marijuana use: Status: Acute Comment: last used 4 yrs ago, discussed tox screen initial & random Neg @ [facility] (7) History of nicotine vaping: Status: Acute Comment: Quit 07/06/24 (8) Former smoker, stopped smoking in distant past: Status: Acute Comment: Quit 2021 (9) Anxiety: Status: Acute (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 conceived naturally Orders: Orders POC Urinalysis Dip (Clinic) Today O26.899 - Other specified related conditions, unspecified trimester, R30.0 - Dysuria Culture, Urine Today O26.899 - Other specified related conditions, unspecified trimester, R30.0 - Dysuria 09/01/24 1630 <Electronically signed by Diana Londono DO> Date _ Diana Leigh DO Cosigner Signature: Date (if applicable) CC: ~ [facility] Work Phone: 1(190) 644-100906-09-2025 Progress [facility] [address], [address] [place] [id number] OFFICE VISIT Date of Service: 08/16/24 MR#: [id number] Acct: [id number] Name: JEFF RUSHING Rep #: [id number] : 1995 Provider: SALLIE Borrego Age/Sex: 29/F Location: [facility] Status: Signed Intake Vital Signs 07/27/24 11:04 08/13/24 15:56 08/16/24 15:43 08/16/24 15:46 Height 5 ft 8 in 5 ft 8 in 5 ft 8 in 5 ft 8 in Weight: 238 lb 8 oz BMI 36.2 BP 145/87 H 130/93 H Intake Visit Reasons: 10wk ob per JV Wire Stitcher Required: No Is patient in pain?: No [...] mg-folate no.1 1 mg-dha 300 mg capsule (PNV-Blissfield) cephalexin 500 mg capsule 500 mg PO Q12H 5 days #10 ca ps 07/25/24 08/16/24 Rx ondansetron 4 mg disintegrating 4 mg PO Q6H PRN nausea and 07/27/24 08/16/24 Rx tablet vomiting #30 tabs Last Menstrual Period: 05/29/24 Zika: Zika virus screening: Negative : No PFSH PFSH Medical History Recurrent loss Trichomonal vaginitis Seasonal allergies Shingles Cyst of spleen Surgical History [place] teeth removed Family History Grandmother Throat cancer, [...] physical activity do you participate in: none whitney/amish: Anglican seatbelt use: always do you feel safe [...] 130/82 Nega tive -?-?-?-?-?-?-?-?-?-?-?-?- Negative 176 -?-?-?-?-?-?-?-?-?-?-?-?- LC- brown discha rge lightening. +FHT. 08/16/24 -?-?-?-?-?-?-?-?-?-?-?-?- 10w 1d 238 lb 8 oz 145/87 130/93 Negative -?-?-?-?-?-?-?-?-?-?-?-?- Negative 176 -?-?-?-?-?-?-?-?-?-?-?-?- KW- no vb/crampi ng. is going to start doing home BPs. [...] Office Urine Glucose Negative Last Edit by Renetta Wolf on 08/16/24 15:51 Office Urine Protein [...] smoking in distant past Z87.891 Anxiety F41.9 Okhtk-Ablkgmjsx-Sxezm syndrome I45.6 at early stage Z34.90 Bicornuate [...] : Status: Acute Comment: , JYOTHI 03/05/25, FOB Franck (5) : Status: Acute Qualifiers: Weeks of [...] Quit 2021 (9) Anxiety: Status: Acute (10) Xkobu-Vynihnthd-Dqqsg syndrome: Status: Acute (11) at early stage: [...] information and see below for orders placed atthis visit. GA appropriate handout given. 08/16/24 1608 s SALLIE> Date Con Borrego CNM Cosigner Signature: Date (if applicable) CC: ~ [facility] [id number] Progress note Author Aaliyah Elmo [facility] Note Date/Time August 16, 2024 4:08p m [facility] [address], [address] [place] [address] OFFICE VISIT Date of Service: 08/16/24 MR#: [id number] Acct: [id number] Name: JEFF RUSHING Rep #: [id number] : 1995 Provider: SALLIE Borrego Age/Sex: 29/F Location: [facility] Status: Signed Intake Vital Signs 07/27/24 11:04 08/13/24 15:56 08/16/24 15:43 08/16/24 15:46 Height 5 ft 8 in 5 ft 8 in 5 ft 8 in 5 ft 8 in Weight: 238 lb 8 oz BMI 36.2 BP 145/87 H 130/93 H Intake Visit Reasons: 10wk ob per JV Wire Stitcher Required: No Is patient in pain?: No [...] mg-folate no.1 1 mg-dha 300 mg capsule (PNV-Blissfield) cephalexin 500 mg capsule 500 mg PO Q12H 5 days #10 ca ps 07/25/24 08/16/24 Rx ondansetron 4 mg disintegrating 4 mg PO Q6H PRN nausea and 07/27/24 08/16/24 Rx tablet vomiting #30 tabs Last Menstrual Period: 05/29/24 Zika: Zika virus screening: Negative : No PFSH PFSH Medical History Recurrent loss Trichomonal vaginitis Seasonal allergies Shingles Cyst of spleen Surgical History [place] teeth removed Family History Grandmother Throat cancer, [...] physical activity do you participate in: none whitney/amish: Anglican seatbelt use: always do you feel safe [...] 130/82 Nega tive -?-?-?-?-?-?-?-?-?-?-?-?- Negative 176 -?-?-?-?-?-?-?-?-?-?-?-?- LC- brown discha rge lightening. +FHT. 08/16/24 -?-?-?-?-?-?-?-?-?-?-?-?- 10w 1d 238 lb 8 oz 145/87 130/93 Negative -?-?-?-?-?-?-?-?-?-?-?-?- Negative 176 -?-?-?-?-?-?-?-?-?-?-?-?- KW- no vb/crampi ng. is going to start doing home BPs. 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 GA appropriate handout given. 08/16/24 1294 <Electronically signed by Aaliyah maciel CNM> Date _ Aaliyah Borrego CNM Cosigner Signature: Date (if applicable) CC: ~ [facility] Work Phone: 1(639) 978-585305-20-2025 Evaluation note* Diagnosis Onset Date Resolution Status [...] 1 0:11am Vaginal discharge acute July 10:11am Yrxal-Nutpwobtp-Gizri syndrome acute July 27, 2024 10:11am Asymptomatic bacteriuria dur ing inactive July 27, 2024 1 0:11am Vaginal bleeding affecting early inactive July 27, 2024 1 0:11am [facility] Work Phone: 1(710) 805-758605-20-2025 Progress [facility] [address] [place] [address], [address] [place] [address] OFFICE VISIT Date of Service: 07/27/24 MR#: [id number] Acct: [id number] Name: JEFF RUSHING Rep #: [id number] : 1995 Provider: Dr. Caitlin Leigh DO Age/Sex: 29/F Location: [facility] Status: Signed Intake Vital Signs 10/17/23 10:44 07/16/24 14:24 07/25/24 11:13 07/27/24 10:15 07/27/24 10:15 Height 5 ft 8 in 5 ft 8 in 5 ft 8 in 5 ft 8 in 5 ft 8 in Weight: 234 lb 2 oz BMI 35.6 BP 138/88 H Intake Visit Reasons: NOB: LMP 05/29/24, JYOTHI 03/05/25 Wire Stitcher Required: No Is patient in pain?: No [...] mg-folate no.1 1 mg-dha 300 mg capsule (PNV-Blissfield) cephalexin 500 mg capsule 500 mg PO Q12H 5 days #10 ca ps 07/25/24 07/27/24 Rx ondansetron 4 mg disintegrating 4 mg PO Q6H PRN nausea and 07/27/24 07/27/24 Rx tablet vomiting #30 tabs Last Menstrual Period: 05/29/24 Zika: Zika virus screening: Negative : No PFSH PFSH Medical History Recurrent loss Trichomonal vaginitis Seasonal allergies Shingles Cyst of spleen Surgical History [place] teeth removed Family History Grandmother Throat cancer, [...] physical activity do you participate in: none whitney/amish: Anglican seatbelt use: always do you feel safe [...] (Rh) Sensitized, Pulmonary (e.g.,TB,Asthma), Drug/latex allergies/reactions, Breast, Manufacturing Shift Supervisor surgery, Anesthetic complications, History of abnormal pap, [...] comfortable and no acute distress Orientation: alert [facility] Head: normal to inspection, normocephalic and atraumatic [...] smoking in distant past Z87.891 Anxiety F41.9 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 at early stage Z34.90 Bicornuate [...] Acute Comment: , JYOTHI 03/05/25, FOFranci Juárez (7) : Status: Acute Comment: discussed NIPT & Carrier testing-undecided (8) History of marijuana use: Status: Acute Comment: last used 4 yrs ago, discussed tox screen initial & random (9) History of nicotine vaping: Status: Acute Comment: Quit 07/06/24 (10) Former smoker, stopped smoking in distant past: Status: Acute Comment: Quit 2021 (11) Anxiety: Status: Acute (12) Actmf-Yzrdudhjv-Ncqzv syndrome: Status: Acute (13) at early stage: Status: Acute (14) Bicornuate uterus: Status: Acute (15) Hemorrhagic cyst of ovary: Status: Acute (16) Vaginal discharge: Status: Acute (17) PCOS (polycystic ovarian syndrome): Status: Acute Comment: per OAR Letrozole 2.5mg 12/07 Medications: New ondansetron 4 mg PO Q6H PRN 30 tabs 0RF nausea and vomiting 07/27/24 1100 e Jourdan DO> Date _ Diana Monique Signature: Date (if applicable) CC: ~ [facility]05-19-2025 Hospital Discharge instructions Additional Instructions Follow-up with your PATRON ATTENDANT in the outpatient setting call them on Friday for a follow-up appointment and see if they want you to be seen tomorrow versus at your scheduled appointment on Friday. You are placed on pelvic rest no sex and do not insert anything in your vagina. Follow-up on urine culture with your PATRON ATTENDANT and take antibiotics as prescribed. [facility] with any other [facility] Work Phone: 1(664) 311-103205-18-2025 Discharge summary [facility] Medical Records Department [address] [place] [address] Emergency Department Summary 07/25/24 MR#: [id number] Acct: [id number] Name: JEFF RUSHING Rep #:[id number] : 1995 29 From: Margarito Huston DO [...] some heavier bleeding therefore she called her PATRON ATTENDANT and they advised her to come here for further evaluation management. Patient states that she is not have any pain right now. [facility] Medical History Recurrent loss Trichomonal vaginitis Seasonal [...] mg-folate no.1 1 mg-dha 300 mg capsule (PNV-Blissfield) cephalexin 500 mg capsule 500 mg PO Q12H 5 days #10 ca ps 07/25/24 Unknown Rx Allergy/AdvReac Type Severity Reaction Status Date / Time Iodinated Contrast Media Allergy Mild Hives Verified 07/25/24 11:13 Family History Grandmother Throat cancer, Onset Age: 68 Maternal Grandfather Lung cancer Maternal, smoker-onset age unknown Father Diabetes Hypertension Myocardial infarction Surgical History [place] teeth removed Social History adopted: No household [...] physical activity do you participate in: none whitney/amish: Anglican seatbelt use: always do you feel safe at home: Yes additional social history: Significant other - Franck GROSS ED ROS Narrative Constitutional: Denies fevers, chills, [...] follow commands knew that she was at [facility] 2024 Skin: Warm, dry, intact no [...] on Friday she will beplaced back on flex this was sent for culture. Patient's ultrasound was reviewed which showed a single live intrauterine with heartbeat of 120 bpm. I called and discussed the case with on-call PATRON ATTENDANT Dr. Vu who states the patient to [...] % (Auto) 58.7 Lymph % (Auto) 35.0 [place] % (Auto) 5.1 Eos % (Auto) 0.6 [...] Albumin/Globulin Ratio 1.5 Lipase 17 HCG, Quant 41858 H Serum , Qual POSITIVE Urine Color Yellow Urine Clarity Sl. Cloudy Urine pH 6.5 Ur Specific Brooks 1.015 Urine Protein 30 H Urine Glucose [...] IMPRESSION: Single live intrauterine . [facility] T[facility] Chief Complaint: Vag Bld, Preg ED Provider: Margarito Huston Dx/Rx/DC Orders Clinical Impression: Vaginal bleeding affecting early , Asymptomatic bacteriuria during Prescriptions: New cephalexin 500 mg capsule 500 mg PO Q12H 5 Days Qty: 10 0RF No Action PNV-Blissfield 28-1-300 mg capsule PO aspirin [Adult Low Dose Aspirin] 81 mg tablet,delayed release (DR/EC) 81 mg PO QDAY progesterone micronized [Prometrium] 200 mg capsule 400 mg vaginal ONCE Qty: 60 4RF Rx Instructions: Vaginal nightly until 16 weeks Primary Care Provider: Care Physician,No Primary Referrals: Care Physician,No Primary [Primary Care Provider] - Activity Restrictions/Additional Instructions: Follow-up with your PATRON ATTENDANT in the outpatient setting call them on Friday for a follow-up appointment and see if they want you to be seen tomorrow versus at your scheduled appointment on Friday. You are placed on pelvic rest no sex anddo not insert anything in your vagina. Follow-up on urine culture with your PATRON ATTENDANT and take antibiotics as prescribed. Return with any other concerns Print Language: Ivorian Disposition Disposition: Home, Self Care What to do if you have Problems For any increased pain, shortness of breath, bleeding, nausea or vomiting, chestpain, or any unexpected problems, contact your Primary Care Provider. Call [facility] ([phone]) or report tothe closest Emergency Room. Call 911 if necessary. 07/25/24 1321 Cosigner Signature (if applicable): CC: No Primary Care Physician ~ Signed [facility]05-18-2025 Radiology Diagnostic study note [facility] Imaging Services [address] [place] [address] Transvaginal w/Preg US MR#: [id number] Acct: [id number] Name: JEFF RUSHING Rep #: [id number] : 1995 F 29 From: Argenis Varghese MD PCP: Care Physician,No Primary Status: REG ER Study:Transvaginal w/Preg US Date of Exam: 07/25/24 Exam# [id number] Ordering Dr: Melchor Huston DO EXAM: US [...] IMPRESSION: Single live intrauterine . Reading Location: [facility] CC: Dr. Margarito Huston DO; No Primary Care Physician ~ Project Management Manager: Signed [facility]05-12-2025 Radiology Diagnostic study note [facility] Imaging Services [address] [place], [place] [address] Transvaginal w/Preg US MR#: [id number] Acct: [id number] Name: JEFF RUSHING Rep #: [id number] : 1995 F 29 From: Randy Gibson MD PCP: Care Physician,No Primary Status: REG CLI Study:Transvaginal w/Preg US Date of Exam: 07/19/24 Exam# [id number] Ordering Dr: Aaliyah Borrego CNM PROCEDURE: TRANSVAGINAL [...] seen in the right ovary. Reading Location: [id number] CC: SALLIE Borrego; No Primary Care Physician ~ Project Management Manager: Signed [facility]05-09-2025 Evaluation note* Diagnosis Onset Date Resolution Status [...] 1: 06pm Vaginal discharge acute July 1:06pm Aared-Eiaegvzvf-Lnelu syndrome acute July 16, 2024 1:06pm Anxiety [...] 1 0:11am Vaginal discharge acute July 10:11am Wwdfx-Ucryhmsrx-Wzckw syndrome acute July 27, 2024 10:11am Asymptomatic [...] 2 :51pm Vaginal discharge acute July 2:51pm Gemyf-Klbjnxrfs-Jhdjq syndrome acute August 03, 2024 2:51pm [facility] Work Phone: [phone]) [phone] Evaluation note* Diagnosis Onset Date Resolution Status [...] 1: 06pm Vaginal discharge acute July 1:06pm Nimrq-Jyaectdrm-Cyork syndrome acute July 16, 2024 1:06pm Anxiety [...] 1 0:11am Vaginal discharge acute July 10:11am Lgzbr-Vakqasket-Jbnkz syndrome acute July 27, 2024 10:11am Asymptomatic [...] 2 :51pm Vaginal discharge acute July 2:51pm Kakrl-Bzaxniakh-Inlan syndrome acute August 03, 2024 2:51pm Anxiety [...] 1 :57pm Vaginal discharge acute August 1:57pm Tnkra-Ogntaozvw-Otwew syndrome acute August 09, 2024 1:57pm [facility] Work Phone: [phone]) [phone] Evaluation note* Diagnosis Onset Date Resolution Status [...] 1: 06pm Vaginal discharge acute July 1:06pm Mwumz-Jcggkpvcj-Wzymk syndrome acute July 16, 2024 1:06pm Anxiety [...] 1 0:11am Vaginal discharge acute July 10:11am Fpxhh-Maqczarlx-Uurxu syndrome acute July 27, 2024 10:11am Asymptomatic [...] 2 :51pm Vaginal discharge acute July 2:51pm Yvxdi-Wkomvyecp-Abmds syndrome acute August 03, 2024 2:51pm Anxiety [...] 1 :57pm Vaginal discharge acute August 1:57pm Kkmzt-Hkximgleu-Echpw syndrome acute August 09, 2024 1:57pm Anxiety [...] 3 :43pm Vaginal discharge acute August 3:43pm Yytxk-Yljuzwgkl-Pfrps syndrome acute August 13, 2024 3:43pm [facility] Work Phone: [phone] Evaluation note* Diagnosis Onset Date Resolution Status [...] 1: 06pm Vaginal discharge acute July 1:06pm Ujtba-Jfymdqzey-Puffj syndrome acute July 16, 2024 1:06pm Anxiety [...] 1 0:11am Vaginal discharge acute July 10:11am Meprj-Ukdptvkzm-Jjhry syndrome acute July 27, 2024 10:11am Asymptomatic [...] 2 :51pm Vaginal discharge acute July 2:51pm Mlknb-Lxnvzyatj-Yajqf syndrome acute August 03, 2024 2:51pm Anxiety [...] 1 :57pm Vaginal discharge acute August 1:57pm Zzhbu-Bpbnoumyq-Wmcvh syndrome acute August 09, 2024 1:57pm Anxiety [...] 3 :43pm Vaginal discharge acute August 3:43pm Bpdlf-Ukcmfirvx-Bnkdd syndrome acute August 13, 2024 3:43pm Anxiety [...] 3 :41pm Vaginal discharge acute August 3:41pm Eaqdc-Dwkpjdvbe-Jatac syndrome acute August 16, 2024 3:41pm [facility] Work Phone: [phone]) 195-540005-09-2025 Evaluation note* Diagnosis Onset Date Resolution Status [...] 1: 06pm Vaginal discharge acute July 1:06pm Fripa-Xgquofpuj-Xuamt syndrome acute July 16, 2024 1:06pm Anxiety [...] 1 0:11am Vaginal discharge acute July 10:11am Whnpk-Xkjbchlkt-Wecvg syndrome acute July 27, 2024 10:11am Asymptomatic [...] 2 :51pm Vaginal discharge acute July 2:51pm Aejkn-Wzptxpbxn-Mftkd syndrome acute August 03, 2024 2:51pm Anxiety [...] 1 :57pm Vaginal discharge acute August 1:57pm Isywl-Tysfcvbgt-Cqxom syndrome acute August 09, 2024 1:57pm Anxiety [...] 3 :43pm Vaginal discharge acute August 3:43pm Urrbt-Tyanayyli-Bjdyq syndrome acute August 13, 2024 3:43pm Anxiety [...] 3 :41pm Vaginal discharge acute August 3:41pm Gceiy-Vvizzxgda-Gylhb syndrome acute August 16, 2024 3:41pm Anxiety [...] 1:59pm Vaginal discharge acute August 272024 1:59pm Buiuc-Imstwpesx-Vyecf syndrome acute August 27, 2024 1:59pm [facility] Work Phone: [phone]) [phone] Evaluation note* Diagnosis Onset Date Resolution Status [...] 1: 06pm Vaginal discharge acute July 1:06pm Ekhha-Hwhwjqwvt-Yhgmk syndrome acute July 16, 2024 1:06pm Anxiety [...] 1 0:11am Vaginal discharge acute July 10:11am Itirf-Dvdnsliat-Xizfw syndrome acute July 27, 2024 10:11am Asymptomatic [...] 2 :51pm Vaginal discharge acute July 2:51pm Dmphy-Dakssyegu-Xgnce syndrome acute August 03, 2024 2:51pm Anxiety [...] 1 :57pm Vaginal discharge acute August 1:57pm Ebnxg-Emgcaozxi-Yumgn syndrome acute August 09, 2024 1:57pm Anxiety [...] 3 :43pm Vaginal discharge acute August 3:43pm Wltsn-Athzhqynp-Hrrch syndrome acute August 13, 2024 3:43pm Anxiety [...] 3 :41pm Vaginal discharge acute August 3:41pm Tspio-Nrweeddqn-Valyg syndrome acute August 16, 2024 3:41pm Anxiety [...] 1:59pm Vaginal discharge acute August 272024 1:59pm Vfali-Myilotbyy-Mnidh syndrome acute August 27, 2024 1:59pm Anxiety acute September 01 3:40pm Bicornuate uterus acute September 012024 3:40pm Former smoker, stopped smoki ng in distant past acute September 01, 2024 3:40pm Hemorrhagic cyst of ovary acute September 01, 2024 3:40pm History of marijuana use acute September 01, 2024 3:40pm History of nicotine vaping acute September 01, 2024 3:40pm History of recurrent miscarriages acute September 01, 2024 3:40pm Obesity affecting acute September 01, 2024 3:40pm PCOS (polycystic ovarian syndrome) acute September 01, 2024 3:40pm acute September 01 3:40pm at early stage acute September 01, 2024 3:40pm Spotting in early acute September 01, 2024 3:40pm Supervision of high-risk acute September 01, 2024 3:40pm Vaginal discharge acute September 012024 3:40pm Gwgqp-Kwnruthfy-Jwpuw syndrome acute September 01, 2024 3:40pm [facility] Work Phone: 1(659) 887-938902-03-2025 History of Present illness Narrative* Domenico Long APRN-GIZZARD PULLER - 04/12/2024 8:20 AM ESTAssociated Order(s): Ear [...] views Result Date: 04/12/2024 Interpreted By: Altaf Grullon, STUDY: XR CHEST 2 VIEWS; 04/12/2024 9:06 am INDICATION: Signs/Symptoms:cough. COMPARISON: None. ACCESSION NUMBER(S): [id number] ORDERING CLINICIAN: DOMENICO LONG FINDINGS: The lungs are clear without pleural effusion. Normal heart size, mediastinum, ya, and pulmonary vasculature. No active disease in the chest identified. MACRO: None Signed by: Altaf Grullon 04/12/2024 9:10 AM Dictation workstation: [id number] Diagnostic study results (if any) were reviewed [...] Record Patient disposition: Home documented in this [facility] Work Phone: 1(108) 739-598912-27-2023 NoteORIGINAL PROCEDURE: Ultrasound and fluoroscopic guided percutaneous [...] Sign Date: 03/05/2023 2:56:21 PM Ordering Provider: [facility] ([place]02-21-2023 Hospital Discharge instructions Patient Education 02/21/2023 13:13:02 Radiology- CT Aspiration or Drainage 06/23/2019 (CUSTOM) TACOMA CT Aspiration or Drainage Discharge Instructions Interventional Radiology [facility] Imaging Services [address] [place] [address] Today, you had a drainage or aspiration [...] 1 to 2 days following the procedure. Hlae-anf-bwfujhu pain medication should be used for pain [...] hours, please follow the instruction below: call [phone] After 24 hours, contact the physician who [...] until you are awake and alert. Take nozs-vfr-xfgizql and prescription medicines only as told by [...] 12/15/2013 Document Revised: 02/06/2018 Document Reviewed: 06/15/2016 [employer]Trainer Patient Education 2020 [employer] Follow Up Care 02/20/2023 10:47:45 With:MARCO BLOOM MD, [facility] Address: [address] [place] [address] [place] [address]- [phone] When: Unknown Comments:Follow-up as needed With:MARCO MOJICA MD Address: [address] [place] [phone] [phone] When: Unknown With:Go to emergency room if symptoms worsen Address:Unknown When: Unknown [facility] 12-15-2023 Evaluation + Plan noteExtracted from: [...] paper, which has been scanned into the [facility] PACS/RIS system. _ Future Scheduled Tests Laboratory* [facility] Lab Send out (Blood Specimens) 02/19/23 [facility] 12-15-2023 Note* NICHELLE Dewitt: SIGN, AUTHOR, PERFORM Event Display: IR Procedure Record Authored Date: [id number] IR Procedure Record Summary Primary Physician: MARCO BLOOM MD Finalized Date/Time: 02/21/23 11:42:44 Pt. Name: KRISTAN JEFF OmalleyO.B./Sex: 1995 Female Med Rec #: [id number] Physician: Financial #: [id number] Pt. Type: O Room/Bed: / Admit/Disch: 02/21/23 08:50:00 - Institution: Allergies identified in patient's electronic medical record at time of printing on 02/21/23 Entry 1 Substance Contrast dye Reaction Type Allergy Last Modified By: NICHELLE Grant 02/19/23 08:06:55 Case Attendance- IR Entry 1 Entry 2 Entry 3 Case Attendee MARCO BLOOM MD, Rad Tech Fierstos, Megan R [...] 11:39:13 02/21/23 11:39:13 Entry 4 Case Attendee Renate, RN Keyur Role Performed Procedure Nurse Details Time In [...] mL Medication OMNIPAQUE 300 50ML 10/PK Y-530 [facility] 3719-2593-71 Radiology Flouroscopy Fluoroscopy Used? Yes Fluoro Dose [...] site marked, Present for Time Out Mono Transliterator Relevant images and Radha K, Fierstos, results are properly Kendy R Michael Briseno, labeled and NICHELLE Dewitt appropriately displayed, Alcohol based prep dry, Double verification of sterility indicators complete Instrument Sterility Team Members MARCO BLOOM MD, Verifying Sterility Mono Transliterator Radha K Procedure IR Sclerotherapy SN Last Modified By: NICHELLE Dewitt 02/21/23 11:26:52 Skin Prep- IR Entry 1 Procedure IR Sclerotherapy SN Skin Prep Prep Area Abdomen Side Left By Michael Villareal Prep Agents Chloraprep Radha K Hair Removal [...] Radiology - Action Plan Outcomes Met? Yes Flame Cutting Supervisor NICHELLE Dewitt Completing Procedure Plan Last Modified By: NICHELLE Dewitt 02/21/23 11:30:03 Case Comments <None> Finalized By: NICHELLE Dewitt Document Signatures Signed By: NICHELLE Dewitt 02/21/23 11:42 [facility] 12-15-2023 Summary of episode note Discharge Instructions Thank you for allowing [facility] to assist you with your healthcare needs. The following is importantdischarge information regarding your hospital visit. Your Care Team MARCO MOJICA MD What to do next Follow Up Appointments Follow Up with MARCO BLOOM MD, [facility] When Why: Follow-up as needed Where: [address] [place] [address] [place] [address]- [phone] Follow Up with MARCO MOJICA MD When Where: [address] [place] [phone] Follow Up with Go to emergency room [...] medication providers or retail pharmacies. Education Materials TACOMA CT Aspiration or Drainage Discharge Instructions Interventional Radiology [facility] Imaging Services [address] [facility] [address] Today, you had a drainage or aspiration [...] 1 to 2 days following the procedure. Eomp-rai-qmkoola pain medication should be used for pain [...] hours, please follow the instruction below: call [phone] After 24 hours, contact the physician who [...] until you are awake and alert. Take wsin-vkt-ewbgwxu and prescription medicines only as told by [...] 12/15/2013 Document Revised: 02/06/2018 Document Reviewed: 06/15/2016 ElseDriveHQ Patient Education 2020 [employer] Inc. Additional Information VACCINATE! IT SAVES LIVES! Members of the community who have not yet received the COVID-19 vaccine and would like to receive it can visit one of [facility] vaccine clinics. There are many vaccine clinic locations within the [facility]. For locations and available times, please visit [email or web address]/. It is important to note that some COVID mobile vaccine clinics are held outdoors and may be canceled in rainy or stormy conditions. To learn more about pediatric vaccinations (ages 5-11), we invite you to visit the [facility] webpage. https://www.[facility].org/pages/6351-Kjsnz-Nemjpmxpdrq-Lqkdrbqjfi-Gstek-Zae stions.htmlTo learn more about the COVID-19 vaccine, we invite you to visit the CDC website for a list of frequently asked questions.https://www.cdc.gov/coronavirus/2019-ncov/vaccines/faq.html [facility] Patient Portal Access Instructions: Stay connected with your healthcare team and access your personal medical information anytime with the [facility] Patient Portal. Please follow the directions below to create your [facility] account: 1.Access the email account you provided upon registration to the hospital/physician office.2.Look for an invitation email from [facility].3.Open the email and access the invitation link: AcceptInvitation to [facility].4.Fill in the required feliz to create your account. To access your account, visit [email or web address]. Click the blue button labeled Access Patient Portal and then log in with the username and password that you created in the steps above. You will be able to view your test results, lab results, a summary of your visits, upcoming appointments and more. There is also a convenient messaging option where you can send secure messages to your p Proxsysvider. In addition, you will have the ability to download any documents or summaries to your computer and/or send the information securely to a physician. Remember that your healthcare information is confidential, so carefully consider who you will allowto register on the [employer]fir[employer] Patient Portal for access to your information. You can also access the [facility] Patient Portal on the Flipzuwhere sylvia. Simply click on Patient Portal and then log into your account. If you would like to receive a full copy of your medical records, please contact the [facility] Medical Records Department by calling [phone], Friday through Friday between 8 a.m. and [...] Call your local pharmacy or go to [email or web address] to find one close to you.3.Make use of household items: Use cat litter or old coffee grounds to dispose medications if other options arenot available. Mix your drugs with these household products, seal them in an airtight container andthrow it into the garbage. Call [facility]: [phone] to be sure your drugs can be [...] aware that I should contact my doctor. Patient/Directory Compiler Signature: Date/Time: Relationship to Patient: Witness Name/Signature: Date/Time: [facility] [id number] Note IR Procedure Record Summary Primary Physician: MARCO BLOOM MD Finalized Date/Time: 02/21/23 11:42:44 Pt. Name: JEFF RUSHING /Sex: 1995 Female Med Rec #: [id number] Physician: Financial #: [id number] Pt. Type: O Room/Bed: / Admit/Disch: 02/21/23 08:50:00 - Institution: Allergies identified in patient's electronic medical record at time of printing on 02/21/23 Entry 1 Substance Contrast dye Reaction Type Allergy Last Modified By: NICHELLE Grant 02/19/23 08:06:55 Case Attendance- IR Entry 1 Entry 2 Entry 3 Case Attendee MARCO BLOOM MD, Rad Tech Fierstos, Megan R [...] mL Medication OMNIPAQUE 300 50ML 10/PK Y-530 [facility] [id number] Radiology Flouroscopy Fluoroscopy Used? Yes Fluoro Dose [...] No No No Physician? Administered by: NICHELLE Deiwtt RN Corey Snider, RN Corey Verbal Order [...] and site marked, Present for Time Out [email or web address] [employer] Relevant images and Kenyetta Louise, results are properly Kendy Granados Transliterator, labeled and NICHELLE Dewitt appropriately displayed, Alcohol based prep dry, Double verification of sterility indicators complete Instrument Sterility Team Members MARCO BLOOM MD, Verifying Sterility SharonReadyDock [employer] Radha K Procedure IR Sclerotherapy SN Last Modified By: NICHELLE Dewitt 02/21/23 11:26:52 Skin Prep- IR Entry 1 Procedure IR Sclerotherapy SN Skin Prep Prep Area Abdomen Side Left By Mono [employer] Prep Agents Chloraprep Radha [place]ron[place] Hair Removal Method N/A Last Modified By: [...] Radiology - Action Plan Outcomes Met? Yes Flame Cutting Supervisor NICHELLE Dewitt Completing Procedure Plan Last Modified By: NICHELLE Dewitt 02/21/23 11:30:03 Case Comments Finalized By: NICHELLE Dewitt Document Signatures Signed By: NICHELLE Dewitt 02/21/23 11:42 [facility] [id number] History and physical note IR PREPROCEDURE H&P [...] paper, which has been scanned into the [facility] PACS/RIS system. _ Digitally Signed by UMANG RICH PA-C on 02/21/2023 09:40 AM Digitally Signed by MARCO BLOOM MD on 02/21/2023 09:51 AM [facility] [id number] Hospital Discharge instructions Patient Education 02/15/2023 14:05:58 [...] or water and you are getting dehydrated 1931-[address] [employer] [place] [address], [place] [address]. All rights reserved. This information is not intended as a substitute for professional medical care. Always follow yourhealthcare professional's instructions. Follow Up Care 02/15/2023 11:50:16 With:MARU REYES MD, Surgery Address: [address] [facility] General Surgery [place], [place] [address]- [phone] [facility] Note Discharge Instructions Thank you for allowing [facility] to assist you with your healthcare needs. [...] Surgery When Within 1-2 days Where: [address] [place] [address]- [phone] Allergies Contrast dye Medications Please ask your primary doctor or pharmacist before taking any other medication not listed, including over the counter drugs, herbal medications, vitamins and or supplements as they may interact withyour home medications. What How Much When Why Instructions Last Dose New acetaminophen-hydrocodone (Welcome 325- 5 mg oral tablet) 1 tab(s) [...] or water and you are getting dehydrated 1203-[address] [employer] [place] [address]. All rights reserved. This information is not intended as a substitute for professional medical care. Always follow yourhealthcare professional's instructions. Additional Information VACCINATE! IT SAVES LIVES! Members of the community who have not yet received the COVID-19 vaccine and would like to receive it can visit one of [facility] vaccine clinics. There are many vaccine clinic locations within the [facility]. For locations and available times, please visit www.[email or web address].[place].gov/. It is important to note that some COVID mobile vaccine clinics are held outdoors and may be canceled in rainy or stormy conditions. To learn more about pediatric vaccinations (ages 5-11), we invite you to visit the [facility] webpage. https://www.[facility].org/pages/8873-Aaxen-Zxqbrgkeycc-Dekhodiomt-Badjs-Jpd stions.htmlTo learn more about the COVID-19 vaccine, we invite you to visit the CDC website for a list of frequently asked questions. https://www.cdc.gov/coronavirus/2019-ncov/vaccines/faq.html [facility] Patient Portal Access Instructions: Stay connected with your healthcare team and access your personal medical information anytime with the [facility] Patient Portal. If you would like a full copy of your medical records please contact the [facility] Medical Records Department Friday through Friday between 8a.m. and 4:30p.m. Please follow the directions below to access the portal: 1.Access the email account you provided upon registration to the [facility].2.Look for an invitation email from [facility].3.Open the email and access the invitation link: Accept Invitation to [facility]4.Fill in the required feliz to create your account. Sign into [email or web address] with your username and password that you [...] you will allow to register on the [facility] Patient Portal for access to your information. You can also access the [facility] Patient Portal on the BiiCode. Simply click on Health Records under [employer] and then click on the [employer]ible [employer] logo. HOW TO SAFELY DISPOSE OF PRESCRIPTION [...] Call your local pharmacy or go to [email or web address] to find one close to you.3.Make use of household items: Use cat litter or old coffee grounds to dispose medications if other options arenot available. Mix your drugs with these household products, seal them in an airtight container andthrow it into the garbage. Call [facility]: [phone] to be sure your drugs can be [...] aware that I should contact my doctor. Patient/Directory Compiler Signature: Date/Time: Relationship to Patient: Witness Name/Signature: Date/Time: [facility]12-09-2023 Evaluation + Plan noteExtracted from: Title:[facility] Note Author:OSCAR LEES DO Date:02/15/23 [...] this definitively. Given a short course of Welcome for pain control over the weekend and referred to Dr. Reyes as an outpatient. [facility] 12-09-2023 Note ORIGINAL EXAMINATION: TWO [...] Date: 02/15/2023 1:26:39 PM [facility] Note ORIGINAL EXAMINATION: CT OF THE ABDOMEN AND PELVIS WITH THRCALVZ95/9/2023 1:[address] ABDOMEN/PELVIS WITH CONTRAST TECHNIQUE: [...] Sign Date: 02/15/2023 1:35:36 PM Ordering Provider: [facility]12-09-2023 History and physical note Date of Service [...] Result Date: February 15, 2023 Verified By: DOMENICO LOPES MD CLINICAL STATEMENT: IMPRESSION: Left-sided anterior splenic cyst [...] this definitively. Given a short course of Welcome for pain control over the weekend and [...] PM Digitally Signed by AUGIE HANNAH MD [facility]11-30-2022 Miscellaneous Notes* Telephone Encounter - Isi Martell APRN.CNP - 02/06/2022 3:53 PM EST Negative for Chlamydia and Gonorrhea. May stop Doxycyline. Make sure to order picker/assembler and take Flagyl as directed. Thanks [facility] Miscellaneous Notes* Telephone Encounter - Kendy [...] Isi Martell APRN. CNP documented in this encounterC[facility]-28-2022 NoteHNO ID: [id number] Author: Isi Martell APRN.CNP Service: ? Author [...] Exam Vitals reviewed. Exam conducted with a cargo vessel stewardess present. Constitutional: General: She is not in acute distress. Appearance: Normal appearance. She is not ill-appearing, toxic-appearing or diaphoretic. HENT: Head: Normocephalic and atraumatic. Genitourinary: Exam position: Lithotomy position. Vagina: Vaginal discharge present. Cervix: Discharge present. 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, X-ray chemical research technician, was in room during physical examination [...] 100 MG CAPSULE Isi Martell APRN.[facility]PMer[facility]11-28-2022 Instructions* Patient Instructions* Isi Martell APRN.CNP - 2022 12:16 PM EST -Will call with STD results -Based on clinical presentation will treat for Chlamydia -Drink plenty of fluids to stay hydrated -Vaginal rest until results are received of all STD testing -Educational pamphlet regarding Chlamydia given documented in this encounterC[facility]11-28-2022 History of Present illness Narrative* Isi [...] Exam Vitals reviewed. Exam conducted with a cargo vessel stewardess present. Constitutional: General: She is not in acute distress. Appearance: Normal appearance. She is not ill-appearing, toxic-appearing or diaphoretic. HENT: Head: Normocephalic and atraumatic. Genitourinary: Exam position: Lithotomy position. Vagina: Vaginal discharge present. Cervix: Discharge present. 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, X-ray chemical research technician, was in room during physical examination [...] DOXYCYCLINE HYCLATE 100 MG CAPSULE Isi Martell APRN.GIZZARD PULLER documented in this encounterC[facility]05-12-2022 History of Present illness Narrative* Khushboo Hussein RN - 07/19/2021 6:22 PM EDT Pt arrives after speaking with her PATRON ATTENDANT office. She had positive test on Friday [...] due to progesterone issue. documented in this encounterJefferson Abington HospitalPudqbl21-77-4907 Evaluation + Plan note Future Scheduled Tests Radiology* CT Thorax w/o Contrast 03/15/21 [facility] 01-24-2021 History of Present illness Narrative* Lencho [...] Anaprox for discomfort. Discharged with supportive care. ERIC Mak/[id number] SSI File#: [id number] END OF DOCUMENT / CHANGE LOG FOLLOWS Last Edited By Elec. Signed By Lencho SolisKLE Lencho Solis on 04/29/2020 10:45 ET on 04/29/2020 10:45 ET Revision Number - 2 ^^^ Verified/Reviewed by 04/29/20 1045 [facility] PATIENT NAME: JEFF PORTILLO [address] [facility] [address] MEDICAL REC #: [id number] [place] [address] [facility] STATCARE REPORT STATCARE PHYSICIAN documented in this encounterWhite Sulphur Springs ClinicDischar summary Author Margarito Huston [facility] Note Date/Time July 25, 2024 1:21p [facility] Medical Records Department [address] [place] [address] Emergency Department Summary 07/25/24 MR#: [id number] Acct: [id number] Name: JEFF RUSHING Rep #:[id number] : 1995 29 From: Margarito Huston DO [...] some heavier bleeding therefore she called her PATRON ATTENDANT and they advised her to come here for further evaluation management. Patient states that she is not have any pain right now. PFSH [facility] Medical History Recurrent loss Trichomonal vaginitis [...] mg-folate no.1 1 mg-dha 300 mg capsule (PNV-Blissfield) cephalexin 500 mg capsule 500 mg PO Q12H 5 days #10 ca ps 07/25/24 Unknown Rx Allergy/AdvReac Type Severity Reaction Status Date / Time Iodinated Contrast Media Allergy Mild Hives Verified 07/25/24 11:13 Family History Grandmother Throat cancer, Onset Age: 68 Maternal Grandfather Lung cancer Maternal, smoker-onset age unknown Father Diabetes Hypertension Myocardial infarction Surgical History [place] teeth removed Social History adopted: No household [...] physical activity do you participate in: none whitney/amish: Anglican seatbelt use: always do you feel safe at home: Yes additional social history: Significant other - Franck GROSS [facility]IN[facility] ED ROS Narrative Constitutional: Denies fevers, chills, [...] follow commands knew that she was at [facility] 2024 Skin: Warm, dry, intact no [...] on Friday she will beplaced back on flex this was sent for culture. Patient's ultrasound was reviewed which showed a single live intrauterine with heartbeat of 120 bpm. I called and discussed the case with on-call PATRON ATTENDANT Dr. Vu who states the patient to [...] % (Auto) 58.7 Lymph % (Auto) 35.0 [place] % (Auto) 5.1 Eos % (Auto) 0.6 [...] Albumin/Globulin Ratio 1.5 Lipase 17 HCG, Quant 46234 H Serum , Qual POSITIVE Urine Color Yellow Urine Clarity Sl. Cloudy Urine pH 6.5 Ur Specific Brooks 1.015 Urine Protein 30 H Urine Glucose [...] IMPRESSION: Single live intrauterine . Reading Location: [facility] Discharge Plan Triage Chief Complaint: Vag Bld, Preg ED Provider: Margarito Huston Dx/Rx/DC Orders Clinical Impression: Vaginal bleeding affecting early , Asymptomatic bacteriuria during Prescriptions: New cephalexin 500 mg capsule 500 mg PO Q12H 5 Days Qty: 10 0RF No Action PNV-Blissfield 28-1-300 mg capsule PO aspirin [Adult Low Dose Aspirin] 81 mg tablet,delayed release (DR/EC) 81 mg PO QDAY progesterone micronized [Prometrium] 200 mg capsule 400 mg vaginal ONCE Qty: 60 4RF Rx Instructions: Vaginal nightly until 16 weeks Primary Care Provider: Care Physician,No Primary Referrals: Care Physician,No Primary [Primary Care Provider] - Activity Restrictions/Additional Instructions: Follow-up with your PATRON ATTENDANT in the outpatient setting call them on Friday for a follow-up appointment and see if they want you to be seen tomorrow versus at your scheduled appointment on Friday. You are placed on pelvic rest no sex anddo not insert anything in your vagina. Follow-up on urine culture with your PATRON ATTENDANT and take antibiotics as prescribed. Return with any other concerns Print Language: Ivorian Disposition Disposition: Home, Self Care What to do if you have Problems For any increased pain, shortness of breath, bleeding, nausea or vomiting, chestpain, or any unexpected problems, contact your Primary Care Provider. Call [facility] ([phone]) or report to the closest Emergency Room. Call 911 if necessary. 07/25/24 1321 <Electronically signed by Margarito Huston DO> Joseigner Signature (if applicable): CC: No Primary Care Physician ~ Signed [facility] Work Phone: Evaluation + Plan note No data available for this section [facility] Evaluation + Plan note Future Appointments Appointment Date:02/20/2023 02:30:00 PM Scheduled Provider:MARU REYES MD Location:[facility] Appointment Type:GS OV Pre Op Appointment Date:02/21/2023 10:00:00 AM Scheduled Provider: Location:IR Appointment Type:IR Sclerotherapy Diagnostic Tests Pending * Miscellaneous LC Test 02/19/23 Future Scheduled Tests Laboratory* [facility] Lab Send out (Blood Specimens) 02/19/23 Radiology* IR Sclerotherapy 02/21/23 [facility] Evaluation note* Diagnosis Miscarriage- Primary Unspecified spontaneous without mention of complication documented in this encounter [facility]* Diagnosis Dysuria- Primary Vaginal discharge Leukorrhea, not specified as infective documented in this encounter [facility]* Diagnosis Bacterial vaginosis- Primary Vaginitis and vulvovaginitis, unspecified documented in this encounter [facility] note* Diagnosis Onset Date Resolution Status PCOS (polycystic ovarian syndrome) acute Vaginal discharge acute Encounter for annual routine gynecological examination noneactive [facility] Work Phone: Evaluation note* Diagnosis COVID-19- Primary Acute cough SOB (shortness of breath) Shortness of breath Fatigue, unspecified type Bilateral impacted cerumen Impacted cerumen At increased risk of exposure to COVID-19 virus Possible PND (post-nasal drip) Postnasal drip Non-recurrent acute suppurative otitis media of both ears without spontaneous rupture of tympanic membranes Acute cough documented in this encounter [facility] Work Phone: Evaluation noteNo assessment information available [facility] Work Phone: Evaluation note* Diagnosis Onset Date [...] 2024 10:11am History of recurrent miscarriages ac alturas July 27, 2024 10:11am Obesity affecting acute [...] 1 0:11am Vaginal discharge acute July 10:11am Wsfrl-Ioqqmxwmf-Kghjk syndrome acute July 27, 2024 10:11am [facility] Work Phone: Hospital Discharge instructions No data available for this section [facility] Hospital Discharge instructions* Attachments The following attachments cannot be sent through Care Everywhere. * Miscarriage (Ivorian) [facility] Additional Instructions Follow-up with your PATRON ATTENDANT in the outpatient setting call them on Friday for a follow-up appointment and see if they want you to be seen tomorrow versus at your scheduled appointment on Friday. You are placed on pelvic rest no sex and do not insert anything in your vagina. Follow-up on urine culture with your PATRON ATTENDANT and take antibiotics as prescribed. [facility] with any other [facility] Work Phone: Progress note No data available for this section [facility] Progress note Author Diana Soliman [facility] Note Date/Time July 27, 2024 11:00 am [facility] [address] [place] [address], [address] [place] [address] OFFICE VISIT Date of Service: 07/27/24 MR#: [id number] Acct: [id number] Name: JEFF RUSHING Rep #: [id number] : 1995 Provider: Dr. Caitlin Leigh, Age/Sex: 29/F Location: [facility] Status: Signed Intake Vital Signs 10/17/23 10:44 07/16/24 14:24 07/25/24 11:13 07/27/24 10:15 07/27/24 10:15 Height 5 ft 8 in 5 ft 8 in 5 ft 8 in 5 ft 8 in 5 ft 8 in Weight: 234 lb 2 oz BMI 35.6 BP 138/88 H Intake Visit Reasons: NOB: LMP 05/29/24, JYOTHI 03/05/25 Wire Stitcher Required: No Is patient in pain?: No [...] mg-folate no.1 1 mg-dha 300 mg capsule (PNV-[place]) cephalexin 500 mg capsule 500 mg PO Q12H 5 days #10 ca ps 07/25/24 07/27/24 Rx ondansetron 4 mg disintegrating 4 mg PO Q6H PRN nausea and 07/27/24 07/27/24 Rx tablet vomiting #30 tabs Last Menstrual Period: 05/29/24 Zika: Zika virus screening: Negative : No PFSH PFSH Medical History Recurrent loss Trichomonal vaginitis Seasonal allergies Shingles Cyst of spleen Surgical History [place] teeth removed Family History Grandmother Throat cancer, [...] physical activity do you participate in: none whitney/amish: Anglican seatbelt use: always do you feel safe [...] still having bleeding. there is a 0.77cm MIUGEL. RTO in one week for repeat ultrasound. 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 Bicornuate [...] : Status: Acute Comment: , JYOTHI 03/05/25, FOB Franck (7) : Status: Acute Comment: discussed NIPT & Carrier testing-undecided (8) History of marijuana use: Status: Acute Comment: last used 4 yrs ago, discussed tox screen initial & random (9) History of nicotine vaping: Status: Acute Comment: Quit 07/06/24 (10) Former smoker, stopped smoking in distant past: Status: Acute Comment: Quit 2021 (11) Anxiety: Status: Acute (12) Crwck-Rqabzmxkr-Tkzwk syndrome: Status: Acute (13) at early stage: [...] Diana Londono DO> Date _ Diana Leigh [facility] Signature: Date (if applicable) CC: ~ [facility] Work Phone: Reason for referral (narrative)No reason for referral information availableWAsht[facility] Work Phone: Summary Purpose Family History No Family History Records Found Relationship Condition Age at Onset Recorded Date/T shelley grandmother Malignant neoplasm of throat Unknown grandfather Malignant neoplasm of lung Unknown father Diabetes mellitus Unknown Hypertension Unknown Relationship Condition Age at Onset Recorded Date/T shelley grandmother Malignant neoplasm of throat 68 grandfather Malignant neoplasm of lung Unknown father Diabetes mellitus Unknown Hypertension Unknown Myocardial infarction Unknown Advance Directives No Advanced Directives Records FoundDocuments on File Type Date Recorded Patient Directory Compiler Expl anation Power of Lace And Textiles Restorer Advance Directive Response Recorded Date/ Time Do you have a Healthcare Power of Lace And Textiles Restorer? 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) Reason for Visit PCOS (polycystic ova chris syndrome) Vaginal discharge Encounter for annual routine gynecological examination Chief Complaint Admit Date EOER July 08, 2024 10:45a m PNOB/Confirmation of July 16, 2024 1:06pm SPOTTING (STAT) July 19, 2024 11:21 am INT LAB ORDERS July 21, 2024 4:08p m Chief Complaint Admit Date EOJuly 08, 2024 10:45a m PNOB/Confirmation of July 16, 2024 1:06pm SPOTTING (STAT) July 19, 2024 11:21 am INT LAB ORDERS July 21, 2024 4:08p m vag bleed preg July 25, 2024 11:12 am Chief Complaint Admit Date EOJuly 08, 2024 10:45a m PNOB/Confirmation of July [...] Vaginal discharge July 27, 2024 10:11 am Vbtuc-Urgdwhaxx-Xhiza syndrome July 27, 2024 10:11am Reason for Visit Admit Date Anxiety July 27, 2024 10:11 am 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 27, 2024 10:11 am Former smoker, stopped smoking in [employer] past July 27, 2024 10:11am Hemorrhagic cyst [...] Vaginal discharge July 27, 2024 10:11 am Rpkuk-Pbyfubzqo-Dpavp syndrome July 27, 2024 10:11am Asymptomatic bacteriuria [...] 2024 1:06pm Former smoker, stopped smoking in [employer] past July 16, 2024 1:06pm Hemorrhagic cyst [...] 1:06pm Vaginal discharge July 16, 2024 1:06pm Zqecl-Lrhnneqrp-Vxnbr syndrome July 16, 2024 1:06pm Anxiety July 27, 2024 10:11 am 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 27, 2024 10:11 am Former smoker, stopped smoking in [employer] t past July 27, 2024 10:11am Hemorrhagic [...] Vaginal discharge July 27, 2024 10:11 am Qzeav-Wtbgmbxuh-Aonba syndrome July 27, 2024 10:11am Asymptomatic bacteriuria [...] Vaginal discharge August 03, 2024 2:51p m Eqsfd-Vpluoquvt-Ckhbk syndrome August 03, 2024 2:51pm Chief Complaint [...] 1:06pm Vaginal discharge July 16, 2024 1:06pm Aoigd-Weicjhgzk-Sxiir syndrome July 16, 2024 1:06pm Anxiety July 27, 2024 10:11 am 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 27, 2024 10:11 am Former smoker, stopped smoking in July 27, 2024 10:11am Hemorrhagic cyst of [...] Vaginal discharge July 27, 2024 10:11 am Dtfxh-Rlpvyhacz-Lkkte syndrome July 27, 2024 10:11am Asymptomatic bacteriuria [...] Vaginal discharge August 03, 2024 2:51p m Ebenv-Bktzbrrnb-Tzxrz syndrome August 03, 2024 2:51pm Anxiety August 09, 2024 1:57p m Bicornuate uterus August 09, 2024 1:57p m Former smoker, stopped smoking in distan t past August 09, 2024 1:57pm Hemorrhagic cyst [...] Vaginal discharge August 09, 2024 1:57p m Ciltn-Xmzfdqjww-Ffxgj syndrome August 09, 2024 1:57pm Chief Complaint [...] 1:06pm Vaginal discharge July 16, 2024 1:06pm Scfwx-Crprbfngo-Uabez syndrome July 16, 2024 1:06pm Anxiety July [...] Vaginal discharge July 27, 2024 10:11 am Eacdv-Gpcjgxyiz-Iguol syndrome July 27, 2024 10:11am Asymptomatic bacteriuria [...] Vaginal discharge August 03, 2024 2:51p m Qbrwv-Aapuggsgj-Wtqgl syndrome August 03, 2024 2:51pm Anxiety August 09, 2024 1:57p m Bicornuate uterus August 09, 2024 1:57p m Former smoker, stopped smoking in [employer] past August 09, 2024 1:57pm Hemorrhagic cyst [...] Vaginal discharge August 09, 2024 1:57p m Jsvbg-Maluhejjb-Jfjsz syndrome August 09, 2024 1:57pm Anxiety August 13, 2024 3:43p m Bicornuate uterus August 13, 2024 3:43p m Former smoker, stopped smoking in [employer] t past August 13, 2024 3:43pm Hemorrhagic [...] Vaginal discharge August 13, 2024 3:43p m Gjfbf-Bwnsdhgaw-Qfdbs syndrome August 13, 2024 3:43pm Chief Complaint [...] 2024 1:06pm Former smoker, stopped smoking in distan t past July 16, 2024 1:06pm Hemorrhagic cyst [...] 1:06pm Vaginal discharge July 16, 2024 1:06pm Kiize-Llfyojvaq-Ykgim syndrome July 16, 2024 1:06pm Anxiety July 27, 2024 10:11 am 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 27, 2024 10:11 am Former smoker, stopped smoking in July 27, 2024 10:11am Hemorrhagic cyst of [...] Vaginal discharge July 27, 2024 10:11 am Wejlm-Qdmyhdomb-Vjtke syndrome July 27, 2024 10:11am Asymptomatic bacteriuria [...] Vaginal discharge August 03, 2024 2:51p m Iizfm-Dygnunsrs-Otezb syndrome August 03, 2024 2:51pm Anxiety August 09, 2024 1:57p m Bicornuate uterus August 09, 2024 1:57p m Former smoker, stopped smoking in [employer] t past August 09, 2024 1:57pm Hemorrhagic cyst [...] Vaginal discharge August 09, 2024 1:57p m Mtwlt-Wyspyrgqi-Otxbj syndrome August 09, 2024 1:57pm Anxiety August 13, 2024 3:43p m Bicornuate uterus August 13, 2024 3:43p m Former smoker, stopped smoking in [employer] past August 13, 2024 3:43pm Hemorrhagic cyst [...] Vaginal discharge August 13, 2024 3:43p m Rsfzl-Wdscjzvfl-Uhvxl syndrome August 13, 2024 3:43pm Anxiety August 16, 2024 3:41p m Bicornuate uterus August 16, 2024 3:41p m Former smoker, stopped smoking in [employer] past August 16, 2024 3:41pm Hemorrhagic cyst of ovary August 16, 2024 3:41pm History of marijuana use August 16, 2024 3:41pm History of nicotine vaping August 16 3:41pm History of recurrent miscarriages Vianney 9 th, 2025 3:41pm Obesity affecting August 16 3:41pm PCOS (polycystic ovarian syndrome) August 16, 2024 3:41pm August 16, 2024 3:41p m at early stage August 16, 2024 3:41pm Spotting in early August 16 3:41pm Supervision of high-risk August 16, 2024 3:41pm Vaginal discharge August 16, 2024 3:41p m Qgrmf-Mqrwxahdw-Qyfin syndrome August 16, 2024 3:41pm Chief Complaint [...] 2024 1:06pm Former smoker, stopped smoking in distan t past July 16, 2024 1:06pm Hemorrhagic cyst [...] 1:06pm Vaginal discharge July 16, 2024 1:06pm Vbsex-Hyhrfpgvq-Quvlv syndrome July 16, 2024 1:06pm Anxiety July [...] Vaginal discharge July 27, 2024 10:11 am Vclsi-Ndomczjjx-Hvlij syndrome July 27, 2024 10:11am Asymptomatic bacteriuria [...] Vaginal discharge August 03, 2024 2:51p m Gwrih-Zgifwluvg-Dudjq syndrome August 03, 2024 2:51pm Anxiety August 09, 2024 1:57p m Bicornuate uterus August 09, 2024 1:57p m Former smoker, stopped smoking in [employer] past August 09, 2024 1:57pm Hemorrhagic cyst [...] Vaginal discharge August 09, 2024 1:57p m Lsrhz-Vzanuukpp-Ifqus syndrome August 09, 2024 1:57pm Anxiety August 13, 2024 3:43p m Bicornuate uterus August 13, 2024 3:43p m Former smoker, stopped smoking in [employer] past August 13, 2024 3:43pm Hemorrhagic cyst [...] Vaginal discharge August 13, 2024 3:43p m Jlaqg-Xfjwjabkq-Kpvlc syndrome August 13, 2024 3:43pm Anxiety August 16, 2024 3:41p m Bicornuate uterus August 16, 2024 3:41p m Former smoker, stopped smoking in [employer] past August 16, 2024 3:41pm Hemorrhagic cyst [...] Vaginal discharge August 16, 2024 3:41p m Comuy-Jwxwpzpsb-Ueruo syndrome August 16, 2024 3:41pm Anxiety August 27, 2024 1:59 pm Bicornuate uterus August 27, 2024 1:59 pm Former smoker, stopped smoking in distan t past August 27, 2024 1:59pm Hemorrhagic [...] August 27, 2024 1:59pm Spotting in early August 27 025 1:59pm Supervision of high-risk August 27, 2024 1:59pm Vaginal discharge August 27, 2024 1:59 pm Fiuhy-Lcogrqqal-Wimza syndrome August 1:59pm Chief Complaint Admit Date EORDER July 08, [...] per JV August 27, 2024 1:59 pm 12wk ob per JV September 01, 2024 3:40 pm Reason for Visit Admit Date Anxiety [...] 1:06pm Vaginal discharge July 16, 2024 1:06pm Utcwb-Egonjoqym-Aklbu syndrome July 16, 2024 1:06pm Anxiety July [...] Vaginal discharge July 27, 2024 10:11 am Fqmnu-Tadolszwn-Gmofw syndrome July 27, 2024 10:11am Asymptomatic bacteriuria [...] Vaginal discharge August 03, 2024 2:51p m Wbjrw-Ebuwanexa-Barqq syndrome August 03, 2024 2:51pm Anxiety August 09, 2024 1:57p m Bicornuate uterus August 09, 2024 1:57p m Former smoker, stopped smoking in distan t past August 09, 2024 1:57pm Hemorrhagic cyst [...] Vaginal discharge August 09, 2024 1:57p m Yoclw-Sqphiusui-Ekjzy syndrome August 09, 2024 1:57pm Anxiety August [...] Vaginal discharge August 13, 2024 3:43p m Pmwri-Uvnzcdfno-Rxpli syndrome August 13, 2024 3:43pm Anxiety August 16, 2024 3:41p m Bicornuate uterus August 16, 2024 3:41p m Former smoker, stopped smoking in [employer] past August 16, 2024 3:41pm Hemorrhagic [...] Vaginal discharge August 16, 2024 3:41p m Oemyh-Ahptnemwk-Fnuln syndrome August 16, 2024 3:41pm Anxiety August 27, 2024 1:59 pm Bicornuate uterus August 27, 2024 1:59 pm Former smoker, stopped smoking in [employer] past August 27, 2024 1:59pm Hemorrhagic cyst of ovary August 27 1:59pm History of marijuana use August 27, 2024 1:59pm History of nicotine vaping August 27 1:59pm 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 1:59pm Obesity affecting August 27, 025 1:59pm PCOS (polycystic ovarian syndrome) August 27, 2024 1:59pm August 27, 2024 1:59 pm at early stage August 27, 2024 1:59pm Spotting in early August 27 2 025 1:59pm Supervision of high-risk August 27, 2024 1:59pm Vaginal discharge August 27, 2024 1:59 pm Othgb-Oiwhvszza-Ocpmu syndrome August 1:59pm Anxiety September 01, 2024 3:40 pm Bicornuate uterus September 01, 2024 3:40 pm Former smoker, stopped smoking in distan t past September 01, 2024 3:40pm Hemorrhagic cyst of ovary September 01 3:40pm History of marijuana use September 01, 2024 3:40pm History of nicotine vaping September 01 3:40pm 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 3:40pm Obesity affecting September 01 025 3:40pm PCOS (polycystic ovarian syndrome) September 01, 2024 3:40pm September 01, 2024 3:40 pm at early stage September 01, 2024 3:40pm Spotting in early September 01 025 3:40pm Supervision of high-risk September 01, 2024 3:40pm Vaginal discharge September 01, 2024 3:40 pm Xakjz-Scwtpvooc-Wsfyk syndrome August 3:40pm Additional Source Comments INFORMATION SOURCE (unrecogn ized section and content) DATE CREATED AUTHOR 09/02/2020 [facility] DATE CREATED AUTHOR AUTHOR'S ORGANIZ ATION 07/26/2021 [facility] [place] DATE CREATED AUTHOR AUTHOR'S ORGANIZ ATION 09/12/2021 [facility] DATE CREATED AUTHOR AUTHOR'S ORGANIZ ATION 09/17/2021 [facility] DATE CREATED AUTHOR AUTHOR'S ORGANIZ ATION 02/09/[address] [facility] DATE CREATED AUTHOR AUTHOR'S ORGANIZ ATION 03/01/2022 [facility] DATE CREATED AUTHOR AUTHOR'S ORGANIZ ATION 08/19/2022 [facility] DATE CREATED AUTHOR AUTHOR'S ORGANIZ ATION 04/01/2023 [facility] ([place]) DATE CREATED AUTHOR AUTHOR'S ORGANIZ ATION 07/17/2024 [facility] DATE CREATED AUTHOR AUTHOR'S ORGANIZ ATION 09/27/2024 [facility] Source Comments (unrecognize d section and content) In the event this informatio n is protected by the Federal Confidentiality of Alcohol and Drug Abuse Patient Records regulations: The Federal rules restrict any use of the information to criminally investigate or prosecute any alcohol or drug abuse patient.[facility] the event this information is protected by the Federal Confidentiality of Alcohol and Drug Abuse Patient Records regulations: The Federal rules restrict any use of the information to criminally investigate or prosecute any alcohol or drug abuse patient.[facility] Hospital[facility] the event this information is protected by the Federal Confidentiality of Alcohol and Drug Abuse Patient Records regulations: The Federal rules restrict any use of the information to criminally investigate or prosecute any alcohol or drug abuse patient.[facility] Hospital[facility] the event this information is protected by the Federal Confidentiality of Alcohol and Drug Abuse Patient Records regulations: The Federal rules restrict any use of the information to criminally investigate or prosecute any alcohol or drug abuse patient.[facility] Hospital[facility] the event this information is protected by the Federal Confidentiality of Alcohol and Drug Abuse Patient Records regulations: The Federal rules restrict any use of the information to criminally investigate or prosecute any alcohol or drug abuse patient.[facility] Hospital[facility] the event this information is protected by the Federal Confidentiality of Alcohol and Drug Abuse Patient Records regulations: The Federal rules restrict any use of the information to criminally investigate or prosecute any alcohol or drug abuse patient.[facility] Hospital[facility] the event this information is protected by the Federal Confidentiality of Alcohol and Drug Abuse Patient Records regulations: The Federal rules restrict any use of the information to criminally investigate or prosecute any alcohol or drug abuse patient.[facility] Care Teams (unrecognized sec tion and content) Flame Cutting Supervisor Relationship Specialty Start Date End Date Marco Mojcia MD [address] [place] [phone] PCP - General Family Practice 06/22/20 Flame Cutting Supervisor Relationship Specialty Start Date End Date Physician, No Pcp PCP - General 07/19/21 Flame Cutting Supervisor Relationship Specialty Start Date End Date Marco Mojica MD [address] [place] [phone] PCP - General Family Practice 06/22/20 Flame Cutting Supervisor Relationship Specialty Start Date End Date Physician, No Pcp PCP - General 07/19/21 Flame Cutting Supervisor Relationship Specialty Start Date End Date Marco Mojica MD [address] [place] [phone] PCP - General Family Medicine 06/22/20 Flame Cutting Supervisor Relationship Specialty Start Date End Date Marco Mojica MD [address] [place] [phone] PCP - General Family Medicine 06/22/20 Flame Cutting Supervisor Relationship Specialty Start Date End Date Marco Mojica MD [address] [place] [phone] PCP - General Family Medicine 06/22/20 Flame Cutting Supervisor Relationship Specialty Start Date End Date Marco Mojica MD [address] [place] [phone] PCP - General Family Medicine 06/22/20 Team Status: Inactive Member Role Status Dates Esperanza Dotson NP-C Attending Provider Active Team Status: Active Member [...] End: July 16, 2024 Dr. Diana Leigh , DO Attending [...] Active Start: July 21, 2024 Dr. Diana Leigh , DO Attending Provider Activ e Start: July 21, 2024 Dr. Diana Leigh , DO Referring Provider Activ e Start: July 21, 2024 Team Status: Inactive Member Role Status Dates No Primary Care Physician Primary Care Provider Active Start: July 25, 2024 End: July 25, 2024 Dr. Margarito Huston , Referring Provider Active Start: July 25, 2024 [...] July 25, 2024 Dr. Margarito Huston , Attending Provider Active Start: July 25, 2024 [...] End: August 03, 2024 Dr. Diana Leigh DO Attending Provider Activ e Start: August 03, 2024 End: August 03, 2024 Dr. Diana Leigh DO Referring Provider Activ e Start: August [...] Start: August 27, 2024 Dr. Diana Leigh DO Attending Provider Activ e Start: August 27, 2024 Dr. Diana Leigh DO Referring Provider Activ e Start: August 27, 2024 Team Status: Inactive Member Role Status Dates No Primary Care Physician Primary Care Provider Active Start: August 27, 2024 End: August 27, 2024 No Primary Care Physician Referring Provider Active Start: August 27, 2024 End: August 27, 2024 Dr. Diana Leigh DO Attending Provider Activ e Start: August 27, 2024 End: August 27, 2024 Team Status: Inactive Member Role Status Dates No Primary Care Physician Primary Care Provider Active Start: August 27, 2024 End: August 27, 2024 Dr. Diana Leigh DO Attending Provider Activ e Start: August 27, 2024 End: August 27, 2024 Dr. Diana Leigh DO Referring Provider Activ e Start: August 27, 2024 End: August 27, 2024 Team Status: Inactive Member Role Status Dates No Primary Care Physician Primary Care Provider Active Start: September 01, 2024 End: September 01, 2024 No Primary Care Physician Referring Provider Active Start: September 01, 2024 End: September 01, 2024 Dr. Diana Leigh DO Attending Provider Activ e Start: September 01, 2024 End: September 01, 2024 Team Status: Active Member Role Status Dates No Primary Care Physician Primary Care Provider Active Start: September 01, 2024 Dr. Diana Leigh DO Attending Provider Activ e Start: September 01, 2024 Team Status: Active Member Role/Relationship Status Dates No Primary Care Physician Primary Care Provider Active Team Status: Inactive Member Role/Relationship Status Dates No Primary Care Physician Primary Care Provider Active Start: July 06, 2024 End: July 06, 2024 Aaliyah Borrego CNM Attending Provider Active S tart: July 06, 2024 End: July 06, 2024 Aaliyah Borrego CNM Referring Provider Active S tart: July 06, 2024 End: July 06, 2024 Team Status: Inactive Member Role/Relationship Status Dates No Primary Care Physician Primary Care Provider Active Start: July 08, 2024 End: July 08, 2024 Aaliyah Borrego CNM Attending Provider Active S tart: July 08, 2024 End: July 08, 2024 Aaliyah Borrego CNM Referring Provider Active S tart: July 08, 2024 End: July 08, 2024 Team Status: Inactive Member Role/Relationship Status Dates No Primary Care Physician Primary Care Provider Active Start: July 16, 2024 End: July 16, 2024 No Primary Care Physician Referring Provider Active Start: July 16, 2024 End: July 16, 2024 Dr. Diana Leigh , DO Attending Provider Activ e Start: July 16, 2024 End: July 16, 2024 Team Status: Inactive Member Role/Relationship Status Dates No Primary Care Physician Primary Care Provider Active Start: July 19, 2024 End: July 19, 2024 Aaliyah Borrego CNM Attending Provider Active S tart: July 19, 2024 End: July 19, 2024 Aaliyah Borrego CNM Referring Provider Active S tart: July 19, 2024 End: July 19, 2024 Team Status: Inactive Member Role/Relationship Status Dates No Primary Care Physician Primary Care Provider Active Start: July 21, 2024 End: July 21, 2024 Dr. Diana Leigh , Attending Provider Activ e Start: July 21, 2024 End: July 21, 2024 Dr. Diana Leigh , Referring Provider Activ e Start: July 21, 2024 End: July 21, 2024 Team Status: Inactive Member Role/Relationship Status Dates No Primary Care Physician Primary Care Provider Active Start: July 25, 2024 End: July 25, 2024 Dr. Margarito Huston , Attending Provider Active Start: July 25, 2024 End: July 25, 2024 Dr. Margarito Huston , Referring Provider Active Start: July 25, 2024 End: July 25, 2024 Dr. Margarito Huston , Emergency Provider Active Start: July 25, 2024 End: July 25, 2024 Team Status: Inactive Member Role/Relationship Status Dates No Primary Care Physician Primary Care Provider Active Start: July 27, 2024 End: July 27, 2024 No Primary Care Physician Referring Provider Active Start: July 27, 2024 End: July 27, 2024 Dr. Diana Leigh , Attending Provider Activ e Start: July 27, 2024 End: July 27, 2024 Team Status: Inactive Member Role/Relationship Status Dates No Primary Care Physician Primary Care Provider Active Start: July 27, 2024 End: July 27, 2024 Dr. Diana Leigh , Attending Provider Activ e Start: July 27, 2024 End: July 27, 2024 Dr. Diana Leigh DO Referring Provider Activ e Start: July 27, 2024 End: July 27, 2024 Team Status: Inactive Member Role/Relationship Status Dates No Primary Care Physician Primary Care Provider Active Start: August 03, 2024 End: August 03, 2024 No Primary Care Physician Referring Provider Active Start: August 03, 2024 End: August 03, 2024 Aaliyah Borrego CNM Attending Provider Active S tart: August 03, 2024 End: August 03, 2024 Team Status: Inactive Member Role/Relationship Status Dates No Primary Care Physician Primary Care Provider Active Start: August 03, 2024 End: August 03, 2024 Dr. Diana Leigh DO Attending Provider Activ e Start: August 03, 2024 End: August 03, 2024 Dr. Diana Leigh DO Referring Provider Activ e Start: August 03, 2024 End: August 03, 2024 Team Status: Inactive Member Role/Relationship Status Dates No Primary Care Physician Primary Care Provider Active Start: August 09, 2024 End: August 09, 2024 No Primary Care Physician Referring Provider Active Start: August 09, 2024 End: August 09, 2024 Aaliyah Borrego CNM Attending Provider Active S tart: August 09, 2024 End: August 09, 2024 Team Status: Inactive Member Role/Relationship Status Dates No Primary Care Physician Primary Care Provider Active Start: August 13, 2024 End: August 13, 2024 No Primary Care Physician Referring Provider Active Start: August 13, 2024 End: August 13, 2024 Felicia Kaur CNM Attending Provider Active Start: August 13, 2024 End: August 13, 2024 Team Status: Inactive Member Role/Relationship Status Dates No Primary Care Physician Primary Care Provider Active Start: August 16, 2024 End: August 16, 2024 No Primary Care Physician Referring Provider Active Start: August 16, 2024 End: August 16, 2024 Aaliyah Borrego CNM Attending Provider Active S tart: August 16, 2024 End: August 16, 2024 Team Status: Inactive Member Role/Relationship Status Dates No Primary Care Physician Primary Care Provider Active Start: August 27, 2024 End: August 27, 2024 Dr. Diana Leigh DO Attending Provider Activ e Start: August 27, 2024 End: August 27, 2024 Dr. Diana Leigh DO Referring Provider Activ e Start: August 27, 2024 End: August 27, 2024 Team Status: Inactive Member Role/Relationship Status Dates No Primary Care Physician Primary Care Provider Active Start: August 27, 2024 End: August 27, 2024 No Primary Care Physician Referring Provider Active Start: August 27, 2024 End: August 27, 2024 Dr. Diana Leigh DO Attending Provider Activ e Start: August 27, 2024 End: August 27, 2024 Team Status: Inactive Member Role/Relationship Status Dates No Primary Care Physician Primary Care Provider Active Start: September 01, 2024 End: September 01, 2024 No Primary Care Physician Referring Provider Active Start: September 01, 2024 End: September 01, 2024 Dr. Diana Leigh DO Attending Provider Activ e Start: September 01, 2024 End: September 01, 2024 Team Status: Inactive Member Role/Relationship Status Dates No Primary Care Physician Primary Care Provider Active Start: September 01, 2024 End: September 01, 2024 Dr. Diana Leigh DO Attending Provider Activ e Start: September 01, 2024 End: September 01, 2024 Reason for Visit (unrecogniz ed section [...] Member Role: Primary Care Physician Address: Address: [address] [place] [id number] [place] Care Team Related Persons Name: NATALIE [...] BE BASED ON THE PRIMARY CLINICAL RECORDS. [employer] provides no warranty or guarantee of the accuracy or completeness of information in this document.
[2024-09-29] MEDS: 0.9% Normal Saline (1000mL) 1,000 ML 999 ML IV (22:59)
[2024-09-29 23:54] VITALS: BP 120/85; PULSE 96; RESP 23; TEMP 36.6; O2SAT 99
== END 2024-09-29 23:58 | disposition home or self-care (01) ==
PROVIDERS: Emergency Provider Emergency Medicine; Visit Provider Emergency Medicine
DX: O99.352 Diseases of the nervous system complicating pregnancy, second trimester (principal); G43.909 Migraine, unspecified, not intractable, without status migrainosus; Z87.891 Personal history of nicotine dependence; Z3A.00 Weeks of gestation of pregnancy not specified
CPT/HCPCS: 96374; 99282; A4216

== ENCOUNTER → 2024-10-01 | Outpatient (CLI) | payer OTHER, SELFPAY ==
[2024-10-01 13:37] LABS: Hematocrit 39.9 % (37-47); Hemoglobin 13.6 g/dL (12.0-15.0); Immature Granulocytes Count 0.030 X10^3/uL (0.0-0.0); Mean Corp Hgb Conc 34.1 g/dL (32-36); Mean Corpuscular Volume 84.9 fL (81-99); Mean Platelet Vol. 11.9 fl (6.2-12.0); NRBC Flagged by Analyzer 0 % (0-5); Platelet Count 177 K/mm3 (150-450); RBC Distribution Width CV 12.3 % (11.6-14.6); RBC Distribution Width SD 37.5 fl (35.1-43.9); Red Blood Count 4.70 M/mm3 (4.2-5.4); White Blood Count 6.7 K/mm3 (4.4-11.0)
[2024-10-01 14:05] LABS: Creatinine, Urine (random) 202.00 mg/dL (28.00-217.00); Protein, Urine (Random) 46.2 mg/dL (0.0-12.0); Protein:Creat Ratio 229 mg/g CRE (0-200)
[2024-10-01 14:18] LABS: AST(SGOT) 12 U/L (<=31); Alanine Aminotransfer ALT/SGPT 10 U/L (<=34); Albumin, Serum 3.8 g/dL (3.5-5.0); Alkaline Phosphatase 62 U/L (35-104); Anion Gap 12 (5-15); BUN 5 mg/dL (4-19); BUN/Creat Ratio 14.9 RATIO (10-20); Calcium,Total 9.3 mg/dL (7.6-11.0); Carbon Dioxide 19.9 mmol/L (21.0-32.0); Chloride 105 mmol/L (98-108); Globulin 2.9 g/dL (2.2-4.2); Glucose 81 mg/dL (70-99); Potassium 3.9 mmol/L (3.3-5.1)
[2024-10-01 16:19] LABS: Creatinine, Urine (random) 153.00 mg/dL (28.00-217.00); Protein, Urine (Random) 28.7 mg/dL (0.0-12.0); Protein:Creat Ratio 188 mg/g CRE (0-200)
== END | disposition home or self-care (01) ==
PROVIDERS: Referring Provider Obstetrics & Gynecology; Visit Provider Obstetrics & Gynecology
DX: R80.9 Proteinuria, unspecified (principal)
CPT/HCPCS: 36415; 80053; 82570; 84156; 85025

== ENCOUNTER → 2024-10-11 | Outpatient (CLI) | payer OTHER, SELFPAY ==
[2024-10-11 15:00] LABS: Hematocrit 39.5 % (37-47); Hemoglobin 13.4 g/dL (12.0-15.0); Mean Corp Hgb Conc 33.9 g/dL (32-36); Mean Corpuscular Volume 84.4 fL (81-99); Mean Platelet Vol. 12.3 fl (6.2-12.0); Platelet Count 169 K/mm3 (150-450); RBC Distribution Width CV 12.8 % (11.6-14.6); RBC Distribution Width SD 38.8 fl (35.1-43.9); Red Blood Count 4.68 M/mm3 (4.2-5.4); White Blood Count 7.2 K/mm3 (4.4-11.0)
[2024-10-11 15:33] LABS: AST(SGOT) 17 U/L (<=31); Alanine Aminotransfer ALT/SGPT 18 U/L (<=34); Albumin, Serum 4.2 g/dL (3.5-5.0); Alkaline Phosphatase 62 U/L (35-104); Anion Gap 14 (5-15); BUN 6 mg/dL (4-19); BUN/Creat Ratio 16.7 RATIO (10-20); Calcium,Total 9.2 mg/dL (7.6-11.0); Carbon Dioxide 20.7 mmol/L (21.0-32.0); Chloride 102 mmol/L (98-108); Globulin 2.7 g/dL (2.2-4.2); Glucose 76 mg/dL (70-99); Potassium 3.8 mmol/L (3.3-5.1)
[2024-10-11 15:37] LABS: Creatinine, Urine (random) 70.30 mg/dL (28.00-217.00); Protein, Urine (Random) 7.7 mg/dL (0.0-12.0); Protein:Creat Ratio 110 mg/g CRE (0-200)
[2024-10-11 16:29] LABS: LDH 146 U/L (84-246); Uric Acid 3.0 mg/dL (2.6-6.0)
== END | disposition home or self-care (01) ==
PROVIDERS: Referring Provider Obstetrics & Gynecology; Visit Provider Obstetrics & Gynecology
DX: O99.350 Diseases of the nervous system complicating pregnancy, unspecified trimester (principal); G43.909 Migraine, unspecified, not intractable, without status migrainosus; O99.210 Obesity complicating pregnancy, unspecified trimester; Z3A.00 Weeks of gestation of pregnancy not specified
CPT/HCPCS: 36415; 80053; 82570; 83615; 84156; 84550; 85027

== ENCOUNTER → 2024-11-05 | Outpatient (CLI) | payer OTHER, SELFPAY ==
--- NOTE | 2024-11-05 08:47 | ECHOD_ITS ---
Reason For Study Reason For Study: PALPITATIONS Procedure This was a 2D Doppler, Color Flow transthoracic echocardiogram. Exam performed in department. Left Ventricle Normal LV size. Left ventricular systolic function is normal. The left ventricular ejection fraction is 65 %. No regional wall motion abnormalities noted. Right Ventricle Normal RV size. Normal systolic function. Atria Normal left atrium. Normal right atrium. Mitral Valve Normal mitral valve. Tricuspid Valve Normal tricuspid valve. Aortic Valve Normal aortic valve. Pulmonic Valve Normal pulmonic valve. Great Vessels Normal aortic root. The pulmonary artery is normal size. Inferior vena cava collapse with respiration. Pericardium/Pleural No pericardial effusion. MMode/2D Measurements & Calculations LVIDd: 4.5 cm IVSd: 1.2 cm Ao root diam: 3.1 cm LVIDs: 2.6 cm LVPWd: 1.1 cm RVDd: 3.2 cm FS: 41.1 % LAV(MOD-bp): 70.6 ml LVAd ap4: 38.4 cm2 LVAd ap2: 37.0 cm2 LAV(MOD-bp) Indexed: 32.0 ml/m2 LVLd ap4: 9.7 cm LVLd ap2: 8.7 cm LAV(MOD-sp2): 65.5 ml EDV(MOD-sp4): 128.8 ml EDV(MOD-sp2): 135.9 ml LAV(MOD-sp4): 65.4 ml EDV(sp4-el): 129.4 ml EDV(sp2-el): 133.7 ml LVAs ap4: 19.5 cm2 LVAs ap2: 20.6 cm2 LVLs ap4: 7.4 cm LVLs ap2: 7.3 cm ESV(MOD-sp4): 46.4 ml ESV(MOD-sp2): 52.5 ml ESV(sp4-el): 43.1 ml ESV(sp2-el): 49.1 ml EF(MOD-sp4): 64.0 % EF(MOD-sp2): 61.4 % EF(sp4-el): 66.7 % SV(MOD-sp4): 82.4 ml SV(MOD-sp2): 83.4 ml SV(sp4-el): 86.3 ml SI(MOD-sp4): 37.3 ml/m2 SI(MOD-sp2): 37.8 ml/m2 LA A4 area: 21.9 cm2 LA dimension(2D): 3.8 cm RA A4 area: 17.1 cm2 TAPSE: 2.0 cm Time Measurements MV dec time: 0.17 sec Doppler Measurements & Calculations MV E max sudeep: 68.7 cm/sec Lat Peak E' Sudeep: 14.5 cm/sec Med Peak E' Sudeep: 11.3 cm/sec MV A max sudeep: 45.8 cm/sec E/E' lat: 4.7 E/E' med: 6.1 MV E/A: 1.5 MV V2 max: 77.6 cm/sec MV P1/2t max sudeep: 74.7 cm/sec Ao V2 max: 117.0 cm/sec MV max P.4 mmHg MV P1/2t: 46.1 msec Ao max P.5 mmHg MV V2 mean: 37.1 cm/sec Ao V2 mean: 83.8 cm/sec MV mean P.63 mmHg MV dec slope: 474.8 cm/sec2 Ao mean P.2 mmHg MV V2 VTI: 21.0 cm MVA(P1/2t): 4.8 cm2 Ao V2 VTI: 24.4 cm AV (velocity ratio): 0.76 LV V1 max: 88.9 cm/sec PA V2 max: 88.9 cm/sec LV V1 max P.2 mmHg PA V2 mean: 65.0 cm/sec LV V1 mean P.8 mmHg LV V1 mean: 62.1 cm/sec LV V1 VTI: 18.5 cm ECHO/Echo Complete Interpretation Summary Normal LV size. Left ventricular systolic function is normal. The left ventricular ejection fraction is 65 %. Structurally normal valves. Ordering Physician: Pepe Cuellar Referring Physician: BOYD PCP Performed By: Whitney Little, CLARISSA, RVT
== END | disposition home or self-care (01) ==
LOC: CVS 08:45
PROVIDERS: Referring Provider Internal Medicine Cardiovascular Disease; Visit Provider Internal Medicine Cardiovascular Disease
DX: R00.2 Palpitations (principal)
CPT/HCPCS: 93306

== ENCOUNTER → 2024-11-19 | Outpatient (CLI) | payer OTHER, SELFPAY | END | disposition home or self-care (01) | LOC: LABSPEC 10:21 | PROVIDERS: Referring Provider Obstetrics & Gynecology; Visit Provider Obstetrics & Gynecology | DX: N89.8 Other specified noninflammatory disorders of vagina (principal); R10.2 Pelvic and perineal pain | CPT/HCPCS: 87070; 87086; 87088; 87205 ==

== ENCOUNTER → 2025-01-14 | Outpatient (CLI) | payer OTHER, SELFPAY | END | disposition home or self-care (01) | LOC: LABSPEC 16:29 | PROVIDERS: Visit Provider Advanced Practice Midwife | DX: R10.20 Pelvic and perineal pain unspecified side (principal) | CPT/HCPCS: 87070; 87205 ==

== ENCOUNTER 2025-02-06 22:55 | Emergency (ER) | payer OTHER, SELFPAY ==
[2025-02-06 22:55] VITALS: BP 138/102; PULSE 107; RESP 16; TEMP 36.6; O2SAT 100; BMI 35.7
--- NOTE | 2025-02-06 23:20 | ED.VIS.GI ---
HPI HPI - GI History of Present Illness Chief Complaint: Abd Pain Detail of Chief Complaint: Right lower quadrant abdominal pain associated nausea. Informant: patient Abdominal Pain/Flank Pain Onset: Days (Started Friday morning.) Context: Gradual Onset Timing: Intermittent Quality: Sharp Location: RLQ Current Severity: Mild Maximum Severity: Mild Worsened by: Nothing Relieved by: Nothing Nausea/Vomiting/Emesis GI Symptom: Positive for Nausea; Negative for Vomiting Onset: Days Severity: Mild Diarrhea/Melena/Hematochezia GI Symptom: Positive for Diarrhea; Negative for Melena or Hematochezia Associated Symptoms Associated Symptoms: Negative for Dysuria, Frequency, Hematuria or Urgency LMP: 1 week ago. Narrative Narrative: 30-year-old female history of IBS. Recent miscarriage in October. History of PCOS. Complaining of abdominal pain that began Friday morning. Associated nausea no vomiting. Mild diarrhea. No fever or chills. No dysuria no history of kidney stones. She has been having bowel movements. Denies any urinary symptoms. States the pain comes and goes. No prior abdominal surgeries. Prior similar symptoms: Yes Recent Illness/Hospitalization: No PFSH PFSH Medical History Palpitations Chronic hypertension affecting Migraine headache Obesity affecting History of recurrent miscarriages Supervision of high-risk Anxiety Xrawy-Xopgkndxp-Nvnmn syndrome Bicornuate uterus Recurrent loss Trichomonal vaginitis Seasonal allergies Shingles Cyst of spleen Home Medications ?Medication ?Instructions ?Recorded ?Last Taken ?Type ondansetron 4 mg disintegrating 4 mg PO Q8H PRN PRN Nausea #7 tabs 02/07/25 Unknown Rx tablet Allergy/AdvReac Type Severity Reaction Status Date / Time Iodinated Contrast Media Allergy Mild Hives Verified 02/06/25 22:58 Family History Grandmother Throat cancer, Onset Age: 68 Maternal Grandfather Lung cancer Maternal, smoker-onset age unknown Father Diabetes Hypertension Myocardial infarction Surgical History S/P dilation and curettage (~10/27/24) [place] teeth removed Social History adopted: No household members: significant other housing: house current occupational status: employed 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 Quit Vaping 07/06/24 quit status: quit date established alcohol intake: current alcohol intake frequency: holidays/special occasions only details: socially - but not while substance use type: does not use, former substance user Date of last use: 4 years ago and marijuana well-balanced diet: daily or most days caffeine: Yes Type: carbonated beverages Number of servings: 1 eating out: rarely or never during the past year weight has: increased > 10 lbs what type of physical activity do you participate in: none whitney/orthodoxy: Mosque seatbelt use: always do you feel safe at home: Yes additional social history: Significant other - Franck GROSS ROS ED ROS Narrative Abdominal pain. Nausea. Constitutional Constitutional ED: Denies chills or fever(s) ENT ENT ED: Denies ear pain Cardiovascular Cardiovascular: Denies chest pain Respiratory/Chest Respiratory/Chest: Denies cough or dyspnea Gastrointestinal Gastrointestinal: Reports abdominal pain, diarrhea and nausea; Denies constipation, melena or vomiting Genitourinary Genitourinary ED: Denies dysuria or hematuria Musculoskeletal Musculoskeletal: Denies arthralgias or back pain Integumentary Denies abscess Neurologic Neurologic: Denies headache(s) Psychiatric Psychiatric: Denies anxiety or depression Endocrine Endocrinology: Denies polydipsia or polyphagia Hematologic/Lymphatic Hematologic/Lymphatic: Denies easy bleeding or easy bruising Allergic/Immunologic Allergic/Immunologic ED: Denies mouth swelling, tongue swelling or urticaria EXAM Physical Exam Narrative Exam Narrative: Well-appearing 30-year-old female. Vital signs are stable afebrile. She does not look septic or toxic. She is in no acute distress. H EENT exam pupils round react to light. Moist mucous membranes. Lungs clear to auscultation bilaterally. Heart regular rhythm no murmur rate about 100. Chest wall ribs nontender. Abdomen soft nondistended normal bowel sounds without peritoneal signs. She is tender in the right lower quadrant. No hernia or no mass. No obstruction. Right upper quadrant and left abdomen are nontender. No signs of abdominal trauma. Moving all 4 extremities. Normal strength. Nontender. Neurologically patient is awake alert. Answering questions following commands. Const Vital Signs: 02/06/25 22:55 02/07/25 00:55 Temperature 97.9 F 98.1 F Temperature Source Oral Oral Pulse Rate 107 H 107 H Respiratory Rate 16 16 Blood Pressure 138/102 H 146/88 H Blood Pressure Mean 114 107 Pulse Ox 100 98 Oxygen Delivery Method Room Air MDM MDM MDM Narrative Medical decision making narrative: 30-year-old female right lower quadrant abdominal pain with a history of IBS and PCOS. Had a recent miscarriage in October. Differential would include appendicitis but she has other reasons to have this pain including her IBS and PCOS. She is also been having diarrhea this could be viral. CAT scan labs to be obtained. She will be given Zofran. She did not want anything for pain at this time. Patient does have an allergy to CAT scan dye will be given IV Solu-Medrol and Benadryl before receiving the contrast. Repeat exam around 12:31 AM patient doing well. No change. Still nauseated needed. She will be given a second dose of Zofran. Awaiting CAT scan to be done. Patient doing well around 1:13 AM. Nausea improved and resolved at the second dose of Zofran. Awaiting CT read. She had already gone over her labs. History & Record Review Discussion w/independent historian: Patient Additional record(s) reviewed:: Prior outpatient record, Prior ED visit and Prior labs Lab Data Attestation: I reviewed the patient's lab results. Lab results narrative: CBC shows a white count 7.8. H&H of 14 and 41. Platelets 241. Electrolytes show a gap of 12. BUN and creatinine 9 and 0.4. Glucose 118. Liver enzymes unremarkable. Lipase normal at 29. Serum test negative. UA negative. No nitrates. Urine is contaminated. 25-50 epithelial cells. No urinary symptoms. CAT scan shows no acute abnormality. Read by the radiologist. Labs: Laboratory Results - last 24 hr 02/06/25 02/06/25 23:10 23:20 WBC 7.8 RBC 4.94 Hgb 14.1 Hct 41.6 MCV 84.2 MCH 28.5 MCHC 33.9 RDW Std Deviation 36.5 RDW Coeff of Enma 12.1 Plt Count 241 MPV 12.1 H Immature Gran % (Auto) 0.100 Neut % (Auto) 46.8 L Lymph % (Auto) 45.5 H [place] % (Auto) 5.6 Eos % (Auto) 1.7 Baso % (Auto) 0.3 Absolute Neuts (auto) 3.7 Absolute Lymphs (auto) 3.56 Nucleated RBC % 0 Sodium 139 Potassium 3.3 Chloride 103 Carbon Dioxide 24.1 Anion Gap 12 BUN 9 Creatinine 0.44 L Estim Creat Clear Calc 243.47 Est GFR (MDRD) Non-Af 135 BUN/Creatinine Ratio 21.0 H Glucose 118 H Calcium 9.4 Total Bilirubin 0.23 AST 17 ALT 18 Alkaline Phosphatase 89 Total Protein 7.0 Albumin 4.3 Globulin 2.7 Albumin/Globulin Ratio 1.6 Lipase 29 Serum , Qual NEGATIVE Urine Color Yellow Urine Clarity Clear Urine pH 6.5 Ur Specific [place] 1.020 Urine Protein Negative Urine Glucose (UA) Normal Urine Ketones Negative Urine Occult Blood 25 H Urine Nitrite Negative Urine Bilirubin Negative Urine Urobilinogen Normal Ur Leukocyte Esterase Negative Urine RBC 0 SEEN Urine WBC 5-10 SEEN Ur Squamous Epith Cells 25-50 SEEN Urine Bacteria 1+ Urine Mucus 0 SEEN Radiography Diagnostic Testing: Clinical Impression(s) from Imaging Studies Abdomen/Pelvis CT 02/07/25 23:02 IMPRESSION: No acute intra-abdominal process. Normal appendix. Reading Location: [facility] Discharge Plan Triage Chief Complaint: Abd Pain ED Provider: Dangelo Gonzalez Dx/Rx/DC Orders Clinical Impression: Diarrhea, Nausea, History of IBS, Abdominal pain Instructions: ED Abdominal Pain Unkn Cause Fem Prescriptions: New ondansetron 4 mg tablet,disintegrating 4 mg PO Q8H PRN PRN (Reason: Nausea) Qty: 7 0RF Primary Care Provider: Riana Jane Referrals: Riana Jane MD [Primary Care Provider, Family Practice] - 3-5 Days if not improving Activity Restrictions/Additional Instructions: All your labs and CAT scan look good. No signs of acute appendicitis or any other acute intra-abdominal pathology. Motrin and Tylenol for pain. Zofran as needed for nausea. Follow-up if not improving. Print Language: French Disposition Disposition: Home, Self Care
--- OUTSIDE RECORDS SUMMARY | 2025-02-06 23:22 | XMS RPT_ITS | CCD ---
Author Organization [facility] Care Team Providers Care Laser Printing Operator Name Role Phone GALINA WALLACE, DR LARA Primary Care Physician Galina WALLACE, Marco Espino Primary Care Provider Physician, No Pcp Primary Care Provider Unavaila GABRIELLA Andino Attending Unavailable PHYSICIAN, NO PCP Primary Care Unavailable PHYSICIAN, NO PCP Primary Care Unavailable NONE, NONE Primary Care Unavailable GRULLON DO, FOSTER K Admitting Unavailable GRULLON DO, FOSTER K Attending Unavailable TOM [id number], NASEEM Zapata Consulting U hina AGUERO AUTO GARAGE ATTENDANT, SHONA Consulting Unavailable NONE, NONE Consulting Unavailable NONE, NONE Primary Care Unavailable YOANA IYER MD Admitting Unavailable YOANA IYER MD Attending Unavailable CORINA REYES, YA PENNINGTON Consulting Unavaila ble AHDOOT [phone], OSBALDO Consulting Sarah vailable KACIE [phone], JOHANNE Alvarez Consulting Unavai lable NONE, NONE Consulting Unavailable Galina WALLACE, Marco Espino Primary Care Provider [phone] EMMANUEL MARTELL Attending Unavailabner GORDON MD, ADAM Primary Care Physician CATY WALLACE~[id number], CATY BONILLA V Admitting Unavailable NONE, NONE Consulting Unavailable NONE, NONE Primary Care Unavailable CATY WALLACE~[id number], CATY BONILLA V Attending Unavailable NONE, NONE Consulting Unavailable SOWMYA WALLACE, WOODROW Consulting Unavailable SOWMYA WALLACE, WOODROW Consulting Unavailable CATY WALLACE, CHAD Kaufman Consulting Unavailable CATY WALLACE, CHAD Kaufman Consulting Unavailable GALINA WALLACE, DR LARA Primary Care Unavailable THAD WALLACE, MARU Attending Unavailable DOLLY VOSS, LIZ Attending Unavailabner MOJICA MD, DR LARA Primary Care Unavailable GALINA WALLACE, DR LARA Primary Care Unavailable CAMDEN WALLACE, AUGIE Daniel Attending Unavailable LUNA BOILER CONTROL ROOM OPERATOR-BANK ADVISOR, CARLEE GEORGE Attending U hina MOJICA MD, DR LARA Primary Care Unavailable DOLLY BOILER CONTROL ROOM OPERATOR-BANK ADVISOR, LIZ Attending Unavailabner MOJICA MD, DR LARA Primary Care Unavailable DOLLY VOSS, LIZ Attending Unavailabner MOJICA MD, DR LARA Primary Care Unavailable ERROL DotsonC Esperanza Attending Provider Unavailable Primary Care Provider UnavailMARCO Butler Primary Care Unavailable MEGHNA GARCIA Attending Unavailable Care Physician, No Primary Primary Care Provider Unavailable Aaliyah Borrego CNM Attending Provider Aaliyah Borrego CNM Referring Provider Care Physician, No Primary Referring Provider Un available Dr. Diana Leigh DO Attending Provider Dr. Diana Leigh DO Referring Provider Dr. Margarito Huston DO Referring Provider Dr. Margarito Huston DO Emergency Provider Dr. Margarito Huston DO Attending Provider Felicia Kaur CNM Attending Provider Dr. Spenser Valero DO Emergency Provider Dr. Karen Vu MD Attending Provider Dr. Spenser Valero DO Attending Provider Dr. Karen Vu MD Referring Provider Polo WALLACE, Dr. Cantu Attending Provider DIANA VORA Referring Unavailab le NO PRIMARY CARE, Primary Care Unavailable DIANA MOHAN Attending Unavailable DIANA MOHAN Attending Unavailable DIANA MOHAN Referring Unavailable NO PRIMARY CARE, Primary Care Unavailable DIANA MOHAN Attending Unavailable DIANA VORA Referring Unavailab le NO PRIMARY CARE, Primary Care Unavailable Care Physician, No Primary Primary Care Provider Unavailable Aaliyah Borrego CNM Attending Provider [phone] Aaliyah Borrego CNM Referring Provider [phone] Polo WALLACE, Dr. Cantu Referring Provider Care Physician, No Primary Primary Care Provider Unavailable Care Physician, No Primary Referring Provider Un available Tena Soliman DO, Dr. Ortiz Attending Provider Tena Soliman DO, Dr. Ortiz Referring Provider Elmo RIZO, Aaliyah Attending Provider [phone] Care Physician, No Primary Primary Care Physicia n Unavailable Care Physician, No Primary Referring Provider Un available Felicia Kaur CNM Attending Physician [phone] Elmo RIZO, Aaliyah Attending Physician [phone] Tena Soliman DO, Dr. Ortiz Attending Physician Tena Soliman DO, Dr. Ortiz Referring Provider Dr. Spenser Valero DO Attending Physician Marylu BLACK, Dr. Dueñas Emergency Department Physi jack Teodoro WALLACE, Dr. Jones Attending Physician Polo WALLACE, Dr. Cantu Attending Physician [phone] Karen Vu Attending Unavailable Karen Vu Referring Unavailable Care Physician, No Primary Primary Care Unava ilable Aaliyah Borrego Referring Unavailable Aaliyah Borrego Attending Unavailable Care Physician, No Primary Primary Care Unava ilable Diana Leigh Attending Unavailabl e Care Physician, No Primary Primary Care Unava ilable Care Physician, No Primary Referring Unava ilable Care Physician, No Primary Primary Care Unava ilable Pepe Cuellar Attending Unavailable Care Physician, No Primary Primary Care Unava ilable Diana Leigh Referring Unavailabl e Diana Leigh Attending Unavailabl e Aaliyah Borrego Attending Unavailable Care Physician, No Primary Primary Care Unava ilable Aaliyah Borrego Referring Unavailable Aaliyah Borrego Attending Unavailable Care Physician, No Primary Primary Care Unava ilable Aaliyah Borrego Attending Unavailable Care Physician, No Primary Primary Care Unava ilable Diana Leigh Attending Unavailabl e Diana Leigh Referring Unavailabl e Care Physician, No Primary Referring Unava ilable Care Physician, No Primary Primary Care Unava ilable Mylenee VelDiana almendarez Attending Unavailabl e Care Physician, No Primary Referring Unava ilable Care Physician, No Primary Primary Care Unava ilable Mylenee Diana Soliman Attending UnavailKaren Broderick Attending Unavailable Karen Vu Referring Unavailable HustonMargarito Attending Unavailable Huston, Margarito Referring Unavailable Care Physician, No Primary Primary Care Unava ilable Care Physician, No Primary Primary Care Unava ilable Pepe Cuellar Attending Unavailable Polo, Pepe Referring Unavailable Care Physician, No Primary Primary Care Unava ilable Aaliyah Borrego Referring Unavailable Aaliyah Borrego Attending Unavailable Care Physician, No Primary Primary Care Unava ilable Vande Velerickson, Diana Referring Unavailabl e Vande Velerickson, Diana Attending Unavailabl e Aaliyah Borrego Referring Unavailable Aaliyah Borrego Attending Unavailable Care Physician, No Primary Primary Care Unava ilable Care Physician, No Primary Referring Unava ilable Care Physician, No Primary Primary Care Unava ilable Aaliyah Borrego Attending Unavailable Care Physician, No Primary Referring Unava ilable Care Physician, No Primary Primary Care Unava ilable Felicia Kaur Attending Unavailable Karen Vu Attending Unavailable Care Physician, No Primary Referring Unava ilable Care Physician, No Primary Primary Care Unava ilable Vande Velerickson, Diana Referring Unavailabl e Vande Velde, Diana Attending Unavailabl e Care Physician, No Primary Primary Care Unava ilable Vande Velerickson, Diana Referring Unavailabl e Vande Velde, Diana Attending Unavailabl e Karen Vu Attending Unavailable Care Physician, No Primary Referring Unava ilable Care Physician, No Primary Primary Care Unava ilable Care Physician, No Primary Primary Care Unava ilable Spenser Valero Attending Unavailable Care Physician, No Primary Primary Care Unava ilable Pepe Cuellar Attending Unavailable Care Physician, No Primary Referring Unava ilable Care Physician, No Primary Primary Care Unava ilable Aaliyah Borrego Attending Unavailable Care Physician, No Primary Referring Unava ilable Care Physician, No Primary Primary Care Unava ilable Aaliyah Borrego Attending Unavailable Care Physician, No Primary Referring Unava ilable Care Physician, No Primary Primary Care Unava ilable Vande Velerickson, Diana Attending Unavailabl e Vande Velde, Diana Attending Unavailabl e Care Physician, No Primary Referring Unava ilable Care Physician, No Primary Primary Care Unava ilable Aaliyah Borrego Attending Unavailable Care Physician, No Primary Referring Unava ilable Care Physician, No Primary Primary Care Unava ilable Diana Leigh Attending Unavailabl e Care Physician, No Primary Referring Unava ilable Care Physician, No Primary Primary Care Unava ilable Aaliyah Borrego Attending Unavailable KRISHNA, RIANA Attending Unavailable KRISHNA, RIANA Referring Unavailable KRISHNA, RIANA Primary Care Unavailable Allergies Allergy Classification Reported Allergen(s) Allergy Type Date of Onset Reaction(s) Facility (5 sources) Contrast media; Translations: [iodinated radiocontrast agents] Drug allergy Dizziness (finding), Weal (disorder) [facility] (9 sources) Gadolinium-Contain ing Contrast Media; Translations: [GADOLINIUM-CONTAI PATTIE CONTRAST MEDIA] Drug Allergy 1 [facility] (4 sources) Iodinated Contrast Media; Translations: [IODINATED CONTRAST MEDIA] Drug Allergy 2 [facility] (1 source) Iodine (And Iodine Containting Drugs) Drug allergy (disorder) [facility] Repository (20 sources) Triiodobenzoic Acids Allergy to substance 4 [facility] (1 source) Gadolinium-Contain ing Contrast Media Drug Allergy 1 [facility] Work Phone: (1 source) Iodinated Contrast Media Drug allergy (disorder) 5 [facility] Repository Medications Current Medications Medication Drug Class(es) Dates Sig (Normalized) Sig (Original) [id number] 200 actuat albuterol 0.09 mg/actuat metered dose [...] 7 days. 14 tablet 04/12/2024 04/19/2024 Active benzonatate 200 mg oral capsule (1 source) Non-narcotic Antitussive Start: 04-12-2024 End: 04-22-2024 take 1 capsule by mouth three times daily as needed for cough benzonatate (Tessalon) 200 mg capsule Indications: Acute cough Take 1 capsule (200 mg) by mouth 3 times a day as needed for cough for up to 10 days. Do not crush or chew. 30 capsule 04/12/2024 04/22/2024 Active cetirizine hydrochloride 10 mg oral tablet (1 [...] Comment on above: Take 1 capsule by [facility] twice daily for 7 days. fluticasone propionate [...] Comment on above: Take 1 tablet by lynne twice daily for 7 days. Mv-Mins 76-Lvnn-Anqkh No.1-Dha (Pnv-[place]on) 28-1-300 mg capsule (20 sources) Start: 07-16-2024 Start: 07-16-2024 Mv-Mins 71-Iro n-Folic No.1-Dha (Pnv-[place]) 28-1-300 mg capsule Active NMA PO July 16, 2024 12:00am Pharmacy See ORDER COMMENTS (3 sources) Start: 05-19-2016 Pharmacy See O RDER COMMENTS Start Date: 05/19/16 Status: Ordered Completed/Discontinued Medications Medication Drug Class(es) Dates Sig (Normalized) Sig (Original) acetaminophen 325 mg / HYDROcodone bitartrate 5 mg oral tablet (3 sources) Opioid Agonist Start: 02-15-2023 End: 02-18-2023 acetaminophen-hydr ocodone 325 mg-5 mg oral tablet Dose = 1 tab(s), Oral, q6h, PRN for pain, 0 Refill(s), 102 Start Date: 02/19/23 Status: Ordered aspirin 81 mg delayed release oral tablet (20 sources) Platelet Aggregation Inhibitor, Nonsteroidal Anti-inflammatory Drug Start: 10-12-2024 End: 11-19-2024 take 1 tablet by mouth once daily Aspirin (Adult Aspirin Regimen) 81 mg tablet,delayed release (DR/EC) Discontinued 81 mg PO daily October 12, 2024 12:00am November 19, 2024 9:17am Start: 07-16-2024 End: 09-01-2024 Aspirin (Adult Low Dose Aspi rin) 81 mg tablet,delayed release (DR/EC) Discontinued 81 mg PO daily July 16, 2024 12:00am September 01, 2024 4:00pm cephalexin 500 mg oral capsule (20 sources) Cephalosporin Antibacterial Start: 11-21-2024 End: 11-28-2024 take 1 capsule by mouth three times daily Cephalexin 500 mg capsule Discontinued 500 mg PO THREE TIMES A DAY 21 7 0 November 21, 2024 12:00am November 27, 2024 12:00am November 28, 2024 12:10am space evenly during waking hours Start: 07-25-2024 End: 09-01-2024 take 1 capsule by mouth every twelve hours Cephalexin 500 mg capsule Discontinued 500 mg PO Q12H 10 5 0 July 25, 2024 12:00am September 01, 2024 4:00pm dicyclomine hydrochloride 20 mg oral tablet (3 sources) Anticholinergic Start: 05-19-2016 End: 05-29-2016 Bentyl 20 mg oral tablet Dose : 20 mg = 1 tab(s), PO, QID, # 40 tab(s), 0 Refill(s) Start Date: 05/19/16 Stop Date: 05/29/16 Status: Ordered labetalol hydrochloride 100 mg oral tablet (10 sources) beta-Adrenergic Sunil Start: 10-11-2024 End: 11-09-2024 take 1 tablet by mouth three times daily Labetalol 100 mg tablet Discontinued 100 mg PO THREE TIMES A DAY 90 3 October 12, 2024 12:00am November 09, 2024 4:57pm letrozole 2.5 mg oral tablet (20 sources) Aromatase Inhibitor Start: 02-12-2024 End: 02-17-2024 Letrozole 2.5 mg tablet Discontinued 7.5 mg PO DAILY 15 5 0 February 12, 2024 9:03am February 16, 2024 1:00am February 17, 2024 1:08am Polycystic ovary syndrome Infertility Polycystic ovarian syndrome begin between days 3 and 7 of menstrual cycle Start: 01-12-2024 End: 01-17-2024 Letrozole 2.5 mg tablet Disc ontinued 7.5 mg PO DAILY 15 5 0 January 12, 2024 1:00am January 16, 2024 1:00am January 17, 2024 1:15am Polycystic ovary syndrome Infertility Polycystic ovarian syndrome begin between days 3 and 7 of menstrual cycle Start: 12-16-2023 End: 12-21-2023 Letrozole 2.5 mg tablet Disc ontinued 7.5 mg PO DAILY 15 5 0 December 16, 2023 8:59am December 20, 2023 12:00am December 21, 2023 12:09am Polycystic ovary syndrome Polycystic ovarian syndrome take days 3 and 7 of menstrual cycle Start: 12-08-2023 End: 12-13-2023 Letrozole 2.5 mg tablet Disc ontinued 2.5 mg PO DAILY 5 5 0 December 08, 2023 12:00am December 12, 2023 12:00am December 13, 2023 12:13am Polycystic ovary syndrome Polycystic ovarian syndrome begin between days 3 and 7 of menstrual cycle Start: 11-03-2023 End: 11-08-2023 Letrozole 2.5 mg tablet Disc ontinued 5 mg PO DAILY 10 5 0 November 03, 2023 12:00am November 07, 2023 12:00am November 08, 2023 12:09am begin between days 2 and 5 of mentrual cycle metoclopramide 5 mg oral tablet (9 sources) Dopamine-2 Receptor Antagonist Start: 09-29-2024 End: 11-19-2024 take 1 tablet by mouth every eight hours as needed for nausea and vomiting Metoclopramide Hcl (Reglan) 5 mg tablet Discontinued 5 mg PO Q8H as needed for nausea and vomiting 21 0 September 29, 2024 11:48pm November 19, 2024 9:17am ondansetron 4 mg disintegrating oral tablet (20 sources) Serotonin-3 Receptor Antagonist Start: 07-27-2024 End: 09-29-2024 take 1 tablet by mouth every six hours as needed for nausea and vomiting Ondansetron 4 mg tablet,disintegrati ng Discontinued 4 mg PO EVERY 6 HOURS as needed for nausea and vomiting 30 0 July 27, 2024 12:00am September 29, 2024 10:04pm progesterone 200 mg oral capsule (20 sources) Progesterone Start: 07-06-2024 End: 10-01-2024 Progesterone Micronized (Prometrium) 200 mg capsule Discontinued 400 mg VAGINAL ONCE 60 4 July 06, 2024 11:31am October 01, 2024 12:18pm Vaginal nightly until 16 weeks progesterone (EN DOMETRIN) 100 mg vaginal insert Insert 100 mg into the vagina 2 (two) times a day. 0 Active promethazine hydrochloride 12.5 mg oral tablet (8 sources) Phenothiazine Start: 10-01-2024 End: 11-19-2024 take 1 tablet by mouth every six hours as needed for nausea and vomiting Promethazine 12.5 mg tablet Discontinued 12.5 mg PO EVERY 6 HOURS as needed for nausea and vomiting 90 4 October 01, 2024 12:00am November 19, 2024 9:17am Problems Active Problems Problem Classification Problem Date Documented Date Episodic/Chronic Abdominal pain (4 sources) Abdominal pain; Translations: [Right lower quadrant pain] Onset: 07-15-2024 02-17-2023 Episodic Administrative/social admission (1 source) Persons encountering health services in other specified circumstances; Translations: [Encounter to establish care] Onset: 01-19-2025 Episodic Anxiety disorders (20 sources) Anxiety; Translations: [Anxiety disorder, unspecified] Onset: 10-12-2024 02-19-2023 Chronic Cardiac dysrhythmias (12 sources) Palpitations; Translations: [Palpitations] Onset: 11-12-2024 02-19-2023 Episodic Conduction disorders (20 sources) Awsfh-Ohuuvsucl-Bhxsf pattern; Translations: [Pre-excitation syndrome] Onset: 10-12-2024 07-16-2024 Chronic Diverticulosis and diverticulitis (2 sources) Diverticular disease 02-19-2023 Chronic Essential hypertension (2 sources) Essential (primary) hypertension; Translations: [ESSENTIAL PRIMARY HYPERTENSION] Onset: 09-12-2021 Chronic Female infertility (1 source) Female infertility associated with anovulation; Translations: [Female infertility associated with anovulation] Onset: 03-25-2024 Chronic Genitourinary congenital anomalies (20 sources) Bicornuate uterus; 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] Onset: 10-12-2024 10-20-2023 Chronic Headache; including migraine (20 sources) Migraine; Translations: [Migraine, unspecified, not intractable, without status migrainosus] Onset: 10-12-2024 10-01-2024 Chronic Headache; including migraine (9 sources) Headache; Translations: [Headache] 09-29-2024 Episodic Headache; including migraine (1 source) Headache; including migraine; Translations: [Headache, unspecified] Onset: 10-04-2024 Hypertension complicating ; childbirth and the puerperium (18 sources) Chronic hypertension complicating AND/OR reason for care during ; Translations: [Unspecified pre-existing hypertension complicating , unspecified trimester] Onset: 10-12-2024 10-11-2024 Chronic Inflammatory diseases of female pelvic organs (1 source) Bacterial vaginosis; Translations: [Acute vaginitis] Episodic Malaise and fatigue (1 source) Fatigue; Translations: [Other fatigue] 04-12-2024 Episodic Menstrual disorders (1 source) Amenorrhea, unspecified; Translations: [Amenorrhea, unspecified] Onset: 07-13-2024 Chronic Mood disorders (2 sources) Depressive disorder 02-19-2023 Chronic Other complications of ; puerperium affecting management of mother (3 sources) Multiple anomalies of fetus; Translations: [Maternal care for other (suspected) abnormality and damage, not applicable or unspecified] 10-27-2024 Episodic Comment on above: found at [facility], discussed with Dr. Arrington. Pt decided medical termination. Other complications of (20 sources) Maternal obesity complicating , childbirth and the puerperium, antepartum; Translations: [Obesity complicating , unspecified trimester] 07-16-2024 Chronic Comment on above: HGBA1c Other complications of (1 source) Obesity complicating , unspecified trimester; Translations: [Obesity complicating , unspecified trimester] Onset: 10-12-2024 Chronic Other complications of (20 sources) Spotting per vagina in ; Translations: [Spotting complicating , unspecified trimester] 07-19-2024 Episodic Comment on above: HCGx2, formal [place] Other complications of (20 sources) High risk ; Translations: [Supervision of high risk , unspecified, unspecified trimester] 07-16-2024 Episodic Comment on above: , JYOTHI 03/05/25, FOB Franck PRR , JYOTHI , LOIS Juárez Other complications of (20 sources) Asymptomatic bacteriuria in ; Translations: [Asymptomatic bacteriuria during ] 07-25-2024 Episodic Other ear and sense organ disorders (1 source) Impacted cerumen of bilateral ears; Translations: [Impacted cerumen, bilateral] 04-12-2024 Episodic Other endocrine disorders (20 sources) Polycystic ovary syndrome; Translations: [Polycystic ovarian syndrome] 07-02-2023 Chronic Comment on above: per [facility] Letro zole 2.5mg 12/07 per [facility] Letro zole 2.5mg 12/07. conceived naturally Other endocrine disorders (2 sources) Polycystic ovarian syndrome; Translations: [Polycystic ovaries] Onset: 09-01-2024 07-02-2023 Chronic Other female genital disorders (1 source) Abnormal uterine and vaginal bleeding, unspecified; Translations: [Abnormal uterine and vaginal bleeding, unspecified] Onset: 07-29-2024 Chronic Other female genital disorders (20 sources) Vaginal discharge; Translations: [Other specified noninflammatory disorders of vagina] Episodic Other female genital disorders (2 sources) Other specified noninflammatory disorders of vagina; Translations: [Leukorrhea, not specified as infective] Onset: 12-03-2024 07-02-2023 Episodic Other female genital disorders (20 sources) Recurrent miscarriage; 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] 07-16-2024 Episodic Comment on above: nl APL panel Other female genital disorders (2 sources) Vaginal odor; Translations: [Other specified noninflammatory disorders of vagina] 11-19-2024 Episodic Other hematologic conditions (8 sources) Splenic cyst; Translations: [Cyst of spleen] Onset: 02-15-2023 Episodic Other lower respiratory disease (1 source) Cough; Translations: [Acute cough] 04-12-2024 Episodic Other lower respiratory disease (1 source) Dyspnea; Translations: [Shortness of breath] 04-12-2024 Episodic Other upper respiratory infections (1 source) Posterior rhinorrhea; Translations: [Postnasal drip] 04-12-2024 Episodic Otitis media and related conditions (1 source) Acute suppurative otitis media without spontaneous rupture of ear drum; Translations: [Acute suppurative otitis media without spontaneous rupture of ear drum, bilateral] 04-12-2024 Episodic Residual codes; unclassified (1 source) Other specified personal risk factors, not elsewhere classified; Translations: [Other specified personal history presenting hazards to health] 04-12-2024 Episodic Residual codes; unclassified (1 source) Less than 8 weeks gestation of ; Translations: [Less than 8 weeks gestation of (HCC)] Onset: 07-15-2024 Episodic Spontaneous (1 source) Miscarriage; Translations: [Complete [...] Unclassified (1 source) Acute cough 04-12-2024 Unclassified (5 sources) Chronic hypertension affecting Unclassified (5 sources) Ntiiy-Infsuilcf-Nxqqt (WPW) syndrome Unclassified (6 sources) O10.919 - Unspecified pre-existing hypertension complicating , unspecified trimester,I45.6 - Pre-excitation syndrome Unclassified (1 source) Pelvic and perineal pain unspecified side; Translations: [Pelvic and perineal pain unspecified side] Onset: 01-14-2025 Unclassified (1 source) Cannabis use, unspecified, in remission; Translations: [Cannabis use, unspecified, in remission] Onset: 09-01-2024 Unclassified (1 source) Other specified diseases and conditions complicating ; Translations: [Other specified diseases and conditions complicating ] Onset: 07-27-2024 Viral infection (1 source) Disease caused by 2019-nCoV; Translations: [COVID-19] 04-12-2024 Episodic Past or Other Problems Problem Classification Problem Date Documented Da te Episodic/Chronic Genitourinary symptoms and ill-defined conditions (4 sources) Dysuria; Translations: [Dysuria] Onset: 07-27-2024 Episodic Hemorrhage during ; abruptio placenta; placenta previa (20 sources) Vaginal bleeding complicating early ; Translations: [Hemorrhage in early , unspecified] Onset: 07-27-2024 07-25-2024 Episodic Nonspecific chest pain (2 sources) Chest pain, unspecified; Translations: [CHEST PAIN UNSPECIFIED] Onset: 03-13-2021 Episodic Other circulatory disease (1 source) Other specified symptoms and signs involving the circulatory and respiratory systems; Translations: [Other specified symptoms and signs involving the circulatory and respiratory systems] Onset: 07-16-2024 Episodic Other complications of (1 source) Supervision of high risk , unspecified, unspecified trimester; Translations: [Supervision of high risk , unspecified, unspecified trimester] Onset: 10-12-2024 Episodic Other complications of (1 source) Diseases of the nervous system complicating , unspecified trimester; Translations: [Diseases of the nervous system complicating , unspecified trimester] Onset: 10-18-2024 Episodic Other complications of (1 source) Other specified related conditions, unspecified trimester; Translations: [Other specified related conditions, unspecified trimester] Onset: 09-06-2024 Episodic Other complications of (1 source) Spotting complicating , unspecified trimester; Translations: [Spotting complicating , unspecified trimester] Onset: 09-01-2024 Episodic Other female genital disorders (20 sources) Recurrent loss; 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 14/14 Other screening for suspected conditions (not mental disorders or infectious disease) (2 sources) Possible ; Translations: [Encounter for test, result unknown] Onset: 07-16-2024 04-12-2024 Episodic Ovarian cyst (20 sources) Hemorrhagic cyst of ovary; Translations: [Unspecified ovarian cyst, unspecified side] Onset: 09-01-2024 08-06-2023 Episodic Residual codes; unclassified (1 source) 18 weeks gestation of ; Translations: [18 weeks gestation of ] Onset: 10-12-2024 Episodic Residual codes; unclassified (1 source) 12 weeks gestation of ; Translations: [12 weeks gestation of ] Onset: 09-01-2024 Episodic Residual codes; unclassified (1 source) 10 weeks gestation of ; Translations: [10 weeks gestation of ] Onset: 08-16-2024 Episodic Screening and history of mental health and substance abuse codes (20 sources) History of clinical finding in subject; Translations: [Personal history of nicotine dependence] Onset: 09-01-2024 07-16-2024 Episodic Comment on above: Quit 07/06/24 Quit 2021 Results Test Name Value Interpretation Reference Range Facility 25(OH)D3 [facility] 2024 25-hydroxyvitamin D3 [Mass/Vol] 13.8 ng/mL Low 31.0-80.0 [facility] Comment on above: Order Comment: Speci men Type: BLOOD SPECIMENOrdering Facility: [facility] Address: [address] [place] [address] Result Comment: Clas sification of 25 [place] Vitamin D status: Deficiency/Insufficiency: < or = 30 ng/ml. Sufficiency/Optimal Levels: 31-80 ng/mL Toxicity: > 100 ng/mL. Test performed by chemiluminescent immunoassay. Performed By: #### 1 989-3 ####[facility] LABCLIA [id number] [address] OF [facility] CNOVon 01-19-2025 CNOV Office Visit (FAMPWS) ---- JEFF PORTILLO ([id number]) 1995 F Date Time Provider Department 01/19/25 9:00 AM RIANA JANE During your visit today, we recorded the following information about you: Temperature Pulse Respiration Blood pressure 99.4 degrees 88/minute 16/minute 144/92 Weight Height Last Period 110.3 kg 1.676 m 12/28/21 Riana Jane MD 01/19/2025 12:48 PM Signed Family Medicine OUTPATIENT VISIT January 19, 2025 CC: Establish care HPI: 29 year old female patient with a history of PCOS Gestational hypertension History of splenic cyst Yeh parkinson white vs other arrhythmia workup up with cards. 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 Had gestational HTN but believes her home BP cuff was malfunctioning so does not currently have home BP monitoring. Review of Systems PAIN ASSESSMENT: Negative for pain, history of chronic pain, or current treatment for a chronic pain condition. GENERAL: No weight loss, or fevers HEENT: Negative for frequent or significant headaches RESPIRATORY: Negative for cough, wheezing, shortness of breath CARDIOVASCULAR: Negative for chest pain, palpitations, PND or orthopnea GI: No nausea, vomiting, or diarrhea or abdominal pain. No AZ bleeding or melana : No history of dysuria, frequency, urgency, or change in urine appearance NEURO: No history of headaches, numbness, weakness, or changes to vision or hearing Health maintenance: Hepatitis C Screening Never done HIV Screening Never done Hepatitis B Vaccine(1 of 3 - 19+ 3-dose series) Never done Cervical Cancer Screening Never done Allergies: ALLERGIES Allergen Reactions Contrast Dye [Gadol* Hives Medications: inositol/D-chiro-in ositol (OVASITOL PO) Take 2,000 mg by mouth two times a day. vit/iron fum/folic ac ( 03/10 ORAL) Take 1 tablet by mouth once daily. Blood Pressure Test Kit-Large Use as directed for blood pressure monitoring Past Medical History: PAST MEDICAL HISTORY Diagnosis Date Arrhythmia Follows with Dr[facility] PCOS (polycystic ovarian syndrome) Social History: SOCIAL HISTORY[1] Family History: Family History Problem Relation Age of Onset Diabetes Father Hyperlipidemia Father BP 144/92 Pulse 88 Temp 37.4 ?C (99.4 ?F) (Temporal) Resp 16 Ht 167.6 cm (5' 6) Wt 110.3 kg (243 lb 3.2 oz) LMP 12/28/2021 (Exact Date) SpO2 98% BMI 39.25 kg/m? 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 No abnormal posturing or positioning. Speech is normal. Strength grossly intact. RESP: Clear lungs bilateral with good air entry, No increased work of breathing CVS: RRR, No murmur. Pulses 2+. GI: Abdomen is soft, non distended, non tender. No masses or hepatomegaly appreciated. Skin/Other: No rashes or lesions. HEENT: pupils equal Extremities: No peripheral edema, swelling or erythema of lower extremities. Labs: Reviewed the following: Pertinent labs as outlined above Imaging: Reviewed the following: Reviewed recent pertinent imaging Assessment/Plan: ASSESSMENT/PLAN: 1. Encounter to establish care - ICD9: V65.8, ICD10: Z76.89 (primary diagnosis) Reviewed hx as above Nutritional labs due to malformation in most recent - LIPID PANEL, NONFASTING - HEMOGLOBIN A1C - HIV 1/2 COMBO WITH REFLEX TO DIFFERENTIATION - HEP REMOTE PANEL BL - VITAMIN D 25 HYDROXY - IRON AND TIBC - FERRITIN - VITAMIN B12 - TSH W/REFLEX FT4 2. Screening for depression - ICD9: V79.0, ICD10: Z13.31 - DEPRESSION SCREENING 3. Encounter for screening examination for other mental health and behavioral disorders - ICD9: V79.8, ICD10: Z13.39 - ANXIETY SCREENING 4. Splenic cyst - ICD9: 289.59, ICD10: D73.4 Hx of splenic cyst patient reports was due for monitoring - US ABD RIGHT UPPER QUADRANT 5. Elevated blood pressure reading without diagnosis of hypertension - ICD9: 796.2, ICD10: R03.0 - Encouraged dietary sodium restriction/DASH diet - Recommended regular aerobic exercise. - Recommend home blood pressure monitoring, to bring results in on next visit - Goal of BP <130/80 - BLOOD PRESSURE TEST KIT-LARGE CUFF Review at next visit 6. Class 2 obesity with body mass index (BMI) of 39.0 to 39.9 in adult, unspecified obesity type, unspecified whether serious comorbidity present - ICD9: 278.00, V85.39, ICD10: E66.812, Z68.39 Newly diagnosed - Behavioral intervention - CONSULT TO NUTRITION THERAPY Riana Jane Remainder of plan including medications to be continued as prior to this visit unless noted above. I will reach out if lab testing or i (more content not included)... Normal [facility] Ferritin SerPl-Miguel Ángelon 2024 Ferritin [Mass/Vol] 84.3 ng/mL Normal 14.7-205.1 [facility] Comment on above: Order Comment: Khadar dye Type: BLOOD SPECIMEN [facility] Address: [address] [place] [address] Performed By: #### 5 0190-8, TSHRF, 2276-4, LIPNF #### [facility] CLIA [id number] [address] [place] [address] [place] HBV core Ab Ser Qlon HBV core Ab Ql (S) Negative Normal Negative [facility] Comment on above: Order Comment: Khadar dye Type: BLOOD SPECIMEN Ordering Facility: [facility] Address: [address] [place] [address] Result Comment: No e vidence of current or past infection with Hepatitis B virus. Should recent infection be suspected, repeat testing may be considered 3-4 weeks after this draw. Performed By: #### 3 1201-7, 88409-5, 94090-9, 5-3 #### [facility] CLIA [id number] [address] [place] [address] [place] HBV surface Ab Ql (S)on 01-08 HBV surface Ab Qn (S) <8.00 Normal [facility] Comment on above: Order Comment: Khadar dye Type: BLOOD SPECIMEN [facility] Address: [address] [place] [address] Result Comment: <8 m IU/mL: No serological evidence of immunity to Hepatitis B Virus. >/= 8 to <12 mIU/mL: No serological evidence of immunity to Hepatitis B Virus. >/= 12 mIU/mL: Consistent with serological evidence of immunity to Hepatitis B Virus. Performed By: #### 3 1201-7, 04237-8, 79931-5, 5-3 #### [facility] CLIA [id number] [address] [place] [address] [place] HBV surface Ab Ser Qlon 01-08 HBV surface Ab Ql (S) Negative Normal [facility] Comment on above: Order Comment: Khadar dye Type: BLOOD SPECIMEN [facility] Address: [address] [place] [address] Result Comment: No s erological evidence of immunity to Hepatitis B Virus. Performed By: #### 3 1201-7, 73665-0, 82116-1, 5194-3 #### [facility] CLIA [id number] [address] [place] [address] [place] HBV surface Ag Ser Qlon 01-08 HBV surface Ag Ql (S) Negative Normal Negative [facility] Comment on above: Order Comment: Speci men Type: BLOOD SPECIMEN [facility] Address: [address] [place] [address] Performed By: #### 3 1201-7, 88325-1, 15046-1, 3 #### [facility] CLIA [id number] [address] [place] [address] [place] HCV Ab Ser Qlon 01-19-2025 HCV Ab Ql (S) Negative Normal Negative [facility] Comment on above: Order Comment: Speci men Type: BLOOD SPECIMEN [facility] Address: [address] [place] [address] Result Comment: The result suggests no evidence of infection with Hepatitis C virus. Should recent infection be suspected, repeat testing may be considered 4-6 weeks after this draw. Performed By: #### 1 6128-1 #### [facility] CLIA [id number] [address] [place] [address] [place] HIV 1+2 Ab IA Qlon HIV 1 and 2 Ab IA.rapid Nom (S/P/Bld) Normal [facility] Comment on above: Order Comment: Speci men Type: BLOOD SPECIMEN [facility] Address: [address] [place] [address] Result Comment: Test not indicated. Performed By: #### 3 1201-7, 75311-9, 86320-9, 5194-3 #### [facility] CLIA [id number] [address] [place] [address] [place] HIV 1+2 Ab+HIV1 p24 Ag IA Ql Non-Reactive Normal Nonreactive [facility] Comment on above: Order Comment: Speci men Type: BLOOD SPECIMEN [facility]ing [facility]: [facility] Address: [address] [place] [address] Performed By: #### 3 1201-7, 01947-6, 30900-3, 5-3 #### [facility] CLIA [id number] [address] [place] [address] STATES [facility] HIV immunoassay testing algorithm interpretation (S/P/Bld) [Interp] Normal [facility] Comment on above: Order Comment: Speci men Type: BLOOD SPECIMEN [facility] Address: [address] [place] [address] Result Comment: No e vidence of HIV-1 or HIV-2 infection. Should recent infection be suspected, repeat testing may be considered 2-3 weeks after this draw. [place] Rev. Code 3701.243(E): This information has been disclosed to you from confidential records protected from disclosure by state law. You shall make no further disclosure of this information without the specific, written, and informed release of the individual to whom it pertains or as otherwise permitted by state law. A general authorization for the release of medical or other information is not sufficient for the purpose of the release of HIV test results or diagnoses. Performed By: #### 3 1201-7, 40984-0, 63929-2, 5-3 #### [facility] CLIA [id number] [address] [place] [address] [place] HbA1c (Bld)on 01-19-2025 Average glucose Estimated from glycated hemoglobin (Bld) [Mass/Vol] 85 mg/dL Normal [facility] Comment on above: Order Comment: Speci men Type: BLOOD SPECIMENOrdering Facility: [facility] Address: [address] [place] [address] Result Comment: eAG: (Estimated average glucose) is a calculated value from HgbA1c and is roofing sales representative of the average blood glucose level in the last 2-3 month period. Performed By: #### 5 5454-3 ####[facility] LAB[facility] [id number] [place] [address] [place] HbA1c (Bld) [Mass fraction] 4.6 % Normal 4.3-5.6 [facility] Comment on above: Order Comment: Khdaar dye Type: BLOOD SPECIMENOrdering Facility: [facility] Address: [address] [place] [address] Result Comment: Amer ican Diabetes Association guidelines indicate that patients with HgbA1c in the range 5.7-6.4% are at increased risk for development of diabetes, and intervention by lifestyle modification may be beneficial. HgbA1c greater or equal to 6.5% is considered diagnostic of diabetes. Performed By: #### 5 5454-3 ####[facility] LABCLIA [id number] [place] [address] [place] Iron and Iron binding capaci ty panel 01-19-2025 Iron [Mass/Vol] 91 ug/dL Normal 41-186 [facility] Comment on above: Order Comment: Kashifi men Type: BLOOD SPECIMEN [facility] Address: [address] [place] [address] Performed By: #### 5 0190-8, TSHRF, 2276-4, LIPNF #### [facility] CLIA [id number] [address] [place] [address] [place] Iron binding capacity [Mass/Vol] 324 ug/dL Normal 232-386 [facility] Comment on above: Order Comment: Speci men Type: BLOOD SPECIMEN [facility] Address: [address] [place] [address] Performed By: #### 5 0190-8, TSHRF, 2276-4, LIPNF #### [facility] CLIA [id number] [address] [place] [address] [place] Iron/TIBC [Molar ratio] 28.1 % Normal 15.0-57.0 [facility] Comment on above: Order Comment: Speci men Type: BLOOD SPECIMEN [facility] Address: [address] [place] [address] Performed By: #### 5 0190-8, TSHRF, 2275-, LIPNF #### [facility] CLIA [id number] [address] [place] [address] [place] LIPID PANEL, NONFASTINGon Cholesterol [Mass/Vol] 252 mg/dL High <200 [facility] Comment on above: Order Comment: Speci men Type: BLOOD SPECIMEN [facility] Address: [address] [place] [address] Result Comment: <200 mg/dL, Desirable 200-239 mg/dL, Borderline high >239 mg/dL, High Performed By: #### 5 0190-8, TSHRF, 2275-06, LIPNF #### [facility] CLIA [id number] [address] [place] [address] STATES OF [facility] HDL CHOLESTEROL, NF 38 mg/dL Low >39 [facility] Comment on above: Order Comment: Speci men Type: BLOOD SPECIMEN [facility] Address: [address] [place] [address] Result Comment: 40-5 9 mg/dL, Acceptable >59 mg/dL, High: Negative risk factor for coronary heart disease <40 mg/dL, Low: Positive risk factor for coronary heart disease Performed By: #### 5 0190-8, TSHRF, 2275-06, LIPNF #### [facility] CLIA [id number] [address] [place] [address] [place] LDL CHOLESTEROL CALCULATED, NF 181 mg/dL High <100 [facility] Comment on above: Order Comment: Speci men Type: BLOOD SPECIMEN [facility] Address: [address] [place] [address] Result Comment: <100 mg/dL, Optimal 100-129 mg/dL, Near optimal/above optimal 130-159 mg/dL, Borderline high 160-189 mg/dL, High >189 mg/dL, Very high Secondary prevention optimal LDL Cholesterol levels are recommended to be <70 mg/dL LDL cholesterol is calculated using the Bernal-NIH equation. Performed By: #### 5 0190-8, TSHRF, 2276-4, LIPNF #### [facility] CLIA [id number] [address] [place] [address] [place] LDL/HDL RATIO, NF 4.76 mg/dL High <2.54 [facility] Comment on above: Order Comment: Speci men Type: BLOOD SPECIMEN [facility] Address: [address] [place] [address] Result Comment: Refe rence: 1. National Cholesterol Education Program ATP III Guideline At-A-Glance Quick Desk Reference: National Heart, Lung, and Blood [place]. National Institutes of Health. 2001: NIH Publication No. 01-3305. 2. An International Atherosclerosis Society position paper: global recommendations for the management of dyslipidemia: executive summary, Atherosclerosis. 2014: 232(2):410-413. Performed By: #### 5 0190-8, TSHRF, 2275-4, LIPNF #### [facility] CLIA [id number] [address] [place] [address] [place] NON HDL CHOL, NF 214 mg/dL High <130 [facility] Comment on above: Order Comment: Speci men Type: BLOOD SPECIMEN [facility] Address: [address] [place] [address] Result Comment: <130 mg/dL, Optimal 130-159 mg/dL, Near optimal/above optimal 160-189 mg/dL, Borderline high 190-219 mg/dL, High >219 mg/dL, Very high Secondary prevention optimal non HDL Cholesterol levels are recommended to be <100 mg/dL Performed By: #### 5 0190-8, TSHRF, 2276-4, LIPNF #### [facility] CLIA [id number] [address] [place] [address] [place] T CHOL/HDL RATIO NF 6.63 mg/dL High <5.10 [facility] Comment on above: Order Comment: Speci men Type: BLOOD SPECIMEN [facility] Address: [address] [place] [address] Performed By: #### 5 0190-8, TSHRF, 2276-4, LIPNF #### [facility] CLIA [id number] [address] [place] [address] [place] TRIGLYCERIDES, NF 178 mg/dL High <150 [facility] Comment on above: Order Comment: Khadar dye Type: BLOOD SPECIMEN [facility] Address: [address] [place] [address] Result Comment: <150 mg/dL, Normal 150-199 mg/dL, Borderline high 200-499 mg/dL, High >499 mg/dL, Very high Performed By: #### 5 0190-8, TSHRF, 2276-4, LIPNF #### [facility] CLIA [id number] [address] [place] [address] [place] VLDL CHOLESTEROL, NF 36 mg/dL High <[address] [facility] Comment on above: Order Comment: Speci hardik Type: BLOOD SPECIMEN [facility] Address: [address] [place] [address] Performed By: #### 5 0190-8, TSHRF, 2276-4, LIPNF #### [facility] CLIA [id number] [address] [place] [address] [place] TSH W/REFLEX FT4on 01-19-202 5 TSH Qn 1.180 m[IU]/L Normal 0.270-4.200 [facility] Comment on above: Order Comment: Khadar dye Type: BLOOD SPECIMENOrdering Facility: [facility] Address: [address] [place] [address] Result Comment: If t he patient is , TSH reference range varies by gestational period: First Trimester (weeks 9-12): 0.180-2.990 mIU/L Second Trimester: 0.110-3.980 mIU/L Third Trimester: 0.480-4.710 mIU/L Sadiq Mckeon et al. A Practical Approach for the Verifications and Determination of Site- and Trimester-Specific Reference Intervals for Thyroid Function tests in . Thyroid, 2019:29:3:412-420. Mehrdad E, et al. 2017 Guidelines of the [place] Thyroid Association for the Diagnosis and Management of Thyroid Disease during and the . Thyroid, 2017:27:3:315-389. Performed By: #### 5 0190-8, TSHRF, 2276-4, LIPNF ####[facility] [id number] [place] [id number] [place] Vit [facility] 025 Cobalamin (Vitamin B12) [Mass/Vol] 383 pg/mL Normal 232-1245 [facility] Comment on above: Order Comment: Speci men Type: BLOOD SPECIMENOrdering Facility: [facility] Address: [address] [place] [address] Performed By: #### 2 132-9 ####[facility] [id number] [place] [address] [place] Genital Culture Comprehensiv key 01-15-2025 VAC Reason for Exam: pelvic pain Normal vaginal job isolated. No yeast, Gardnerella, Neisseria or beta-hemolytic Streptococcus isolated. Normal [facility] Comment on above: Performed By: #### M 100.3200, M1.1999 ####[facility] [id number] [address] [facility]. [place], [place], [id number] Gram Stainon 01-14-2025 Reason for Exam: pelvic pain Gram Stain 4+ Gram positive rods 4+ Gram negative rods 1+ Epithelial cells No Gram negative diplococci Score = 4 Interpretation: 0-3 Normal, 4-6 Intermediate, 7-10 Positive BV Normal [facility] Comment on above: Performed By: #### M 100.3200, M1 ####[facility] [id number] [place], [place], [address] Film Or Videotape Editor Office Visit Reporton 01-14-2025 Film Or Videotape Editor Office Visit Report [facility] [address], [address] [place] [address] OFFICE VISIT Date of Service: 01/14/25 MR#: [id number] Acct: [id number] Name: JEFF PORTILLO Rep #: [id number] : 1995 Provider: SALLIE Chamberlain ams Age/Sex: 29/F Location: [facility] Status: Signed Intake Vital Signs 11/19/24 09:10 01/14/25 15:44 Height 5 ft 8 in 5 ft 8 in Weight: 242 lb 9 oz BMI 36.8 BP 148/89 H Intake Visit Reasons: Right pelvic pain, discharge Special Inspector Required: No Is patient in pain?: No Allergies Iodinated Contrast Media Allergy (Mild, Verified 01/14/25 15:44) Hives Medications ???Medication ???Instructions ???Recorded ???Confirmed ???Type NK 01/14/25 01/14/25 History Post menopausal: No Patient : No : No PFSH Medical History Palpitations Chronic hypertension affecting Migraine headache Obesity affecting History of recurrent miscarriages Supervision of high-risk Anxiety Iaucp-Bwvlogbjc-Mki te syndrome Bicornuate uterus Recurrent loss Trichomonal vaginitis Seasonal allergies Shingles Cyst of spleen Surgical History S/P dilation and curettage ( 10/27/24) [place] teeth removed Family History Grandmother Throat [...] physical activity do you participate in: none whitney/congregational: Jehovah'S Witness seatbelt use: always do you feel safe at home: Yes additional social history: Significant other - Franck HPI Right pelvic pain, discharge Details: JEFF PORTILLO is a 29 year old who presents for vaginal odor and discharge-worsening since after loss of baby (Aristides). Offers that she is also having right sided pelvic pain on and off. Was on 3 weeks of doxycycline and said she thought the odor was better. She is TTC again and is hesitant to take medication at this time. would like to wait for results prior to starting anything. no irritation at this time Female Reproductive History Last Menstrual Period: 12/27/24 Cycle Length: 21-35 Questions: sexually active: Yes, dyspareunia: No and PCB: No History 3 Elective abortions 1 Hx Para 0 Spontaneous abortions 2 Hx # Term Pregnancies Ectopic pregnancies Hx # Pregnancies Multiple births # of living children 0 Past Pregnancies Del. Date Name GA/Weeks Outcome Route Bth Weight Infant Gen Labor Lgth Anesthesia Del Locatn Provider FOB 06/10/20 chemical 4 spontaneous 07/16/212021 5 spontaneous 10/27/24 [place] elective Delivery Date: 10/27/24 Last Updated by: Aubree Adamson Coding Level of Care Code Off vis,est,level 3 Diagnoses Pelvic pain R10.20 Vaginal odor N89.8 Assessment and Plan Assessment and Plan (1) Pelvic pain: Status: Acute Plan: TVUS genital culture PARAS BV- call results. RTO prn/annual- call + test for progesterone has appt with PCP next month for labs and to establish for BP control (2) Vaginal odor: Status: Acute Orders: Orders Transvaginal Non- Today R10.20 - Pelvic and perineal pain unspecified side POC BV Blue Test Today R10.20 - Pelvic and perineal pain unspecified side Culture, Genital Comprehensive Today R10.20 - Pelvic and perineal pain unspecified side 01/14/25 1625 Date Aaliyah Borrego CNM Co (more content not included)... Normal [facility] Genital Culture Comprehensiv key 11-22-2024 VAC Reason for Exam: vaginal odor Normal genital job isolated Normal [facility] Comment on above: Performed By: #### L 501.0900, L100.0100, L500.4050 #### [facility] [address] [place], [address] Urine Cultureon 11-21-2024 URC Below infection level. GPC Poss Enterococcus sp Van Count 1000-10,000 Normal [facility] Comment on above: Performed By: #### L 501.0900, L100.0100, L500.4050 #### [facility] [address] [place], [address] Genital cultureOrdered By: Janell Vu on 11-19-2024 Source specific culture Normal genital job isolated [facility] Gram Stainon 11-19-2024 GS Reason for Exam: vaginal odor Gram Stain 4+ Gram positive rods 2+ Epithelial cells No Gram negative diplococci Score = 0 Interpretation: 0-3 Normal, 4-6 Intermediate, 7-10 Positive BV Normal [facility] Comment on above: Performed By: #### L 501.0900, L100.0100, L500.4050 #### [facility] [address] [place], [address] Gram stainOrdered By: Karen Vu on 11-19-2024 Microscopic observation Gram stain Nom (Unsp spec) [facility] - Chemistry and C hemistry - challengeOrdered By: Karen Vu on 11-19-2024 Bilirubin Ql (U) Negative [facility] Glucose Ql (U) Negative [facility] Ketones Ql (U) Negative [facility] pH (U) 6.0 [pH] [facility] Specific gravity (U) [Rel density] 1.020 [facility] Urobilinogen (U) [Mass/Vol] 0.6407724 mg/dL [facility] - Hematology and Cell countsOrdered By: Karen Vu on 11-19-2024 Hemoglobin Ql (U) Trace [facility] - Specimen inform ationOrdered By: Karen Vu on 11-19-2024 Clarity (U) Clear [facility] Color (U) Yellow [facility] - UrinalysisOrder ed By: Karen Vu on 11-19-2024 Nitrite Ql (U) Negative [facility] Protein Ql (U) Negative [facility] No Panel InformationOrdered By: Karen Vu on 11-19-2024 POC Bacterial Vaginitis (Rapid) Negative [facility] Urine Leukocytes Negatve [facility] Urine Non-Hemolyzed Blood Non-Hemolyzed [facility] Film Or Videotape Editor Office Visit Reporton 11-19-2024 Film Or Videotape Editor Office Visit Report [facility] [address], [address] [place] [address] OFFICE VISIT Date of Service: 11/19/24 MR#: [id number] Acct: [id number] Name: JEFF RUSHING Rep #: [id number] : 1995 Provider: Dr. Karen reza MD Age/Sex: 29/F Location: [facility] Status: Signed Intake Vital Signs 10/12/24 13:45 11/19/24 09:07 11/19/24 09:10 Height 5 ft 8 in 5 ft 8 in 5 ft 8 in Weight: 240 lb 238 lb BMI 36.5 36.1 BP 134/87 H 134/87 H Blood Pressure Location Lt brachial Position Sitting Respiration 16 Pulse 110 H Pulse Source Monitor Intake Visit Reasons: Strong vaginal odor Special Inspector Required: No Is patient in pain?: No Allergies Iodinated Contrast Media Allergy (Mild, Verified 11/19/24 09:07) Hives Medications ???Medication ???Instructions ???Recorded ???Confirmed ???Type multivit-min no.71-iron fum 28 cap PO 07/16/24 11/19/24 History mg-folate no.1 1 mg-dha 300 mg capsule (PNV-Easton) Post menopausal: No Patient : No : No PFSH Medical History (Updated 11/19/24 @ 10:[address] Karen Vu MD) Palpitations Chronic hypertension affecting Migraine headache Obesity affecting History of recurrent miscarriages Supervision of high-risk Anxiety Ipccv-Qrohhqsyw-Rte te syndrome Bicornuate uterus Recurrent loss Trichomonal vaginitis Seasonal allergies Shingles Cyst of spleen Surgical History (Updated 11/19/24 @ 09:24 by Aubree Carson) S/P dilation and curettage ( 10/27/24) [place] teeth removed Family History Grandmother Throat [...] physical activity do you participate in: none whitney/congregational: Jehovah'S Witness seatbelt use: always do you feel safe at home: Yes additional social history: Significant other - Franck HPI Strong vaginal odor Details: JEFF RUSHING is a 29 year old who presents for vaginla odor post d and e. it started after having sex. she co strong odor, co some itching burning when she urinates. she hsa some dysuria History 3 Elective abortions 1 Hx Para 0 Spontaneous abortions 2 Hx # Term Pregnancies Ectopic pregnancies Hx # Pregnancies Multiple births # of living children 0 Past Pregnancies Del. Date Name GA/Weeks Outcome Route Bth Weight Infant Gen Labor Lgth Anesthesia Del [facility] Provider FOB 06/10/20 chemical 4 spontaneous 07/16/212021 5 spontaneous 10/27/24 [place] 20 elective Delivery Date: 10/27/24 Last Updated by: Aubree GROSS Const Constitutional: Denies fatigue, fever(s), headache(s), increased appetite, poor appetite, weight gain or weight loss Cardio Card: Denies chest pain Resp Resp: Denies cough or dyspnea GI GI: Reports as per HPI and abdominal pain; Denies constipation, nausea or vomiting : Reports as per HPI, nipple discharge, vaginal discharge, vaginal odor and vaginal pruritus; Denies difficulty voiding, dysuria, urinary frequency, urinary incontinence, urinary hesitancy, urinary urgency or vaginal dryness Skin Skin/Breast: Reports nipple discharge; Denies change in hair, breast mass, breast pain or breast skin changes Exam Const General: cooperative, healthy appearing, comfortable, no acute distress and well developed Nutritional Appearance: average body habitus Orientation: alert HENMT Head: normal to inspection and normocephalic Neck Neck: normal visual inspe (more content not included)... Normal [facility] Urine cultureOrdered By: Evgeny Vu on 11-19-2024 Bacteria identified Cx Nom (U) GPC Poss Enterococcus sp Abnormal [facility] Echocardiogram study reportO rdered By: Pepe Cuellar on 11-08-2024 Study report [facility] [address] [place] [address] Echo Complete 11/05/24 0853 MR#: [id number] Acct: [id number] Name: JEFF RUSHING Rep #:[id number] : 1995 29 From: Pepe Chowdary Attending Dr: Dr. Pepe Cuellar MD S tatus: REG CLI Ordering Dr: Pepe Cuellar MD Date: Location: CVS Sex: F C Admitted: Reason For Study Reason For Study: PALPITATIONS Procedure This was a 2D Doppler, Color Flow transthoracic echocardiogram. Exam performed in department. Left Ventricle Normal LV size. Left ventricular systolic function is normal. The left ventricular ejection fraction is 65 %. No regional wall motion abnormalities noted. Right Ventricle Normal RV size. Normal systolic function. Atria Normal left atrium. Normal right atrium. Mitral Valve Normal mitral valve. Tricuspid Valve Normal tricuspid valve. Aortic Valve Normal aortic valve. Pulmonic Valve Normal pulmonic valve. Great Vessels Normal aortic root. The pulmonary artery is normal size. Inferior vena cava collapse with respiration. Pericardium/Pleural No pericardial effusion. MMode/2D Measurements & Calculations LVIDd: 4.5 cm IVSd: 1.2 cm Ao root diam: 3.1 cm LVIDs: 2.6 cm LVPWd: 1.1 cm RVDd: 3.2 cm FS: 41.1 % __ LAV(MOD-bp): 70.6 ml LVAd ap4: 38.4 cm2 LVAd ap2: 37.0 cm2 LAV(MOD-bp) Indexed: 32.0 ml/m2 LVLd ap4: 9.7 cm LVLd ap2: 8.7 cm LAV(MOD-sp2): 65.5 ml EDV(MOD-sp4): 128.8 ml EDV(MOD-sp2): 135.9 ml LAV(MOD-sp4): 65.4 ml EDV(sp4-el): 129.4 ml EDV(sp2-el): 133.7 ml LVAs ap4: 19.5 cm2 LVAs ap2: 20.6 cm2 LVLs ap4: 7.4 cm LVLs ap2: 7.3 cm ESV(MOD-sp4): 46.4 ml ESV(MOD-sp2): 52.5 ml ESV(sp4-el): 43.1 ml ESV(sp2-el): 49.1 ml EF(MOD-sp4): 64.0 % EF(MOD-sp2): 61.4 % EF(sp4-el): 66.7 % ____ SV(MOD-sp4): 82.4 ml SV(MOD-sp2): 83.4 ml SV(sp4-el): 86.3 ml SI(MOD-sp4): 37.3 ml/m2 SI(MOD-sp2): 37.8 ml/m2 __ LA A4 area: 21.9 cm2 LA dimension(2D): 3.8 cm RA A4 area: 17.1 cm2 __ TAPSE: 2.0 cm Time Measurements MV dec time: 0.17 sec Doppler Measurements & Calculations MV E max yesika: 68.7 cm/sec Lat Peak E' Yesika: 14.5 cm/sec Med Peak E' Yesika: 11.3 cm/sec MV A max yesika: 45.8 cm/sec E/E' lat: 4.7 E/E' med: 6.1 MV E/A: 1.5 MV V2 max: 77.6 cm/sec MV P1/2t max yesika: 74.7 cm/sec Ao V2 max: 117.0 cm/sec MV max P.4 mmHg MV P1/2t: 46.1 msec Ao max P.5 mmHg MV V2 mean: 37.1 cm/sec Ao V2 mean: 83.8 cm/sec MV mean P.63 mmHg MV dec slope: 474.8 cm/sec2 Ao mean P.2 mmHg MV V2 VTI: 21.0 cm MVA(P1/2t): 4.8 cm2 Ao V2 VTI: 24.4 cm AV (velocity ratio): 0.76 ____ LV V1 max: 88.9 cm/sec PA V2 max: 88.9 cm/sec LV V1 max P.2 mmHg PA V2 mean: 65.0 cm/sec LV V1 mean P.8 mmHg LV V1 mean: 62.1 cm/sec LV V1 VTI: 18.5 cm ECHO/Echo Complete Interpretation Summary Normal LV size. Left ventricular systolic function is normal. The left ventricular ejection fraction is 65 %. Structurally normal valves. __ Ordering Physician: Pepe Cuellar Referring Physician: NO PCP Performed By: Whitney Little, RDCS, RVT 11/08/24 1133 Date _ Pepe Cuellar MD CC: Dr. Pepe Cuellar MD; No Primary Care Physician ~ Date Dictated: 11/05/2453 Date Transcribed: 11/08/241132 Monotype Keyboard Operator: Signed [facility] Work Phone: Echo Completeon 11-05-2024 Echo Complete [facility] [address] [place] [address] Echo Complete 11/05/24852 MR#: [id number] Acct: [id number] Name: JEFF RUSHING Rep #: [id number] : 1995 29 From: Pepe Cuellar MD Attending Dr: Dr. Pepe Cuellar MD Status: REG Monserrat Ordering Dr: Pepe Cuellar MD Date: 11/05/24 Location: [facility] Sex: F C Admitted: Reason For Study Reason For Study: PALPITATIONS Procedure This was a 2D Doppler, Color Flow transthoracic echocardiogram. Exam performed in department. Left Ventricle Normal LV size. Left ventricular systolic function is normal. The left ventricular ejection fraction is 65 %. No regional wall motion abnormalities noted. Right Ventricle Normal RV size. Normal systolic function. Atria Normal left atrium. Normal right atrium. Mitral Valve Normal mitral valve. Tricuspid Valve Normal tricuspid valve. Aortic Valve Normal aortic valve. Pulmonic Valve Normal pulmonic valve. Great Vessels Normal aortic root. The pulmonary artery is normal size. Inferior vena cava collapse with respiration. Pericardium/Pleural No pericardial effusion. MMode/2D Measurements Calculations LVIDd: 4.5 cm IVSd: 1.2 cm Ao root diam: 3.1 cm LVIDs: 2.6 cm LVPWd: 1.1 cm RVDd: 3.2 cm FS: 41.1 % __ LAV(MOD-bp): 70.6 ml LVAd ap4: 38.4 cm2 LVAd ap2: 37.0 cm2 LAV(MOD-bp) Indexed: 32.0 ml/m2 LVLd ap4: 9.7 cm LVLd ap2: 8.7 cm LAV(MOD-sp2): 65.5 ml EDV(MOD-sp4): 128.8 ml EDV(MOD-sp2): 135.9 ml LAV(MOD-sp4): 65.4 ml EDV(sp4-el): 129.4 ml EDV(sp2-el): 133.7 ml LVAs ap4: 19.5 cm2 LVAs ap2: 20.6 cm2 LVLs ap4: 7.4 cm LVLs ap2: 7.3 cm ESV(MOD-sp4): 46.4 ml ESV(MOD-sp2): 52.5 ml ESV(sp4-el): 43.1 ml ESV(sp2-el): 49.1 ml EF(MOD-sp4): 64.0 % EF(MOD-sp2): 61.4 % EF(sp4-el): 66.7 % __ SV(MOD-sp4): 82.4 ml SV(MOD-sp2): 83.4 ml SV(sp4-el): 86.3 ml SI(MOD-sp4): 37.3 ml/m2 SI(MOD-sp2): 37.8 ml/m2 __ LA A4 area: 21.9 cm2 LA dimension(2D): 3.8 cm RA A4 area: 17.1 cm2 __ TAPSE: 2.0 cm Time Measurements MV dec time: 0.17 sec Doppler Measurements Calculations MV E max yesika: 68.7 cm/sec Lat Peak E' Yesika: 14.5 cm/sec Med Peak E' Yesika: 11.3 cm/sec MV A max yesika: 45.8 cm/sec E/E' lat: 4.7 E/E' med: 6.1 MV E/A: 1.5 __ MV V2 max: 77.6 cm/sec MV P1/2t max yesika: 74.7 cm/sec Ao V2 max: 117.0 cm/sec MV max P.4 mmHg MV P1/2t: 46.1 msec Ao max P.5 mmHg MV V2 mean: 37.1 cm/sec Ao V2 mean: 83.8 cm/sec MV mean P.63 mmHg MV dec slope: 474.8 cm/sec2 Ao mean P.2 mmHg MV V2 VTI: 21.0 cm MVA(P1/2t): 4.8 cm2 Ao V2 VTI: 24.4 cm AV (velocity ratio): 0.76 __ LV V1 max: 88.9 cm/sec PA V2 max: 88.9 cm/sec LV V1 max P.2 mmHg PA V2 mean: 65.0 cm/sec LV V1 mean P.8 mmHg LV V1 mean: 62.1 cm/sec LV V1 VTI: 18.5 cm ECHO/Echo Complete Interpretation Summary Normal LV size. Left ventricular systolic function is normal. The left ventricular ejection fraction is 65 %. Structurally normal valves. __ Ordering Physician: Pepe Cuellar Referring Physician: BOYD PCP Performed By: Whitney Little, CLARISSA, RVT 11/08/24 1133 Date Pepe Cuellar MD CC: Dr. Pepe Cuellar MD; No Primary Care Physician Date Dictated: 11/05/24 0853 Date Transcribed: 11/08/24 113 Monotype Keyboard Operator: Signed [facility] Progress Noteon 10-21-2024 Nut Process Helper Authentication Interface Message Text [facility] Antepartum Consult Note I saw your patient today, Ms. Rushing. She is a at 19w4d. She comes today for her anatomy ultrasound. 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 Unfortunately, at the time of the ultrasound, multiple and severe abnormalities were noted consistent with Lkye-Gojj-Mnso Complex. Therefore, the consultation portion of the visit today was used to discuss the ultrasound findings. 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 Mental status - alert, oriented to person, place, and time Chest - No difficulty with breathing Heart - Normal Rate Abdomen - Non tender during US exam Pelvic - Deferred Extremities - no edema noted Ultrasound performed today in the office: please see report for further detail. As was stated above, there are severe abnormalities noted. What we are seeing is consistent with Zmfw-Cafy-Mfdb. There is a contreras fetus seen in the cephalic position. There is no abdominal wall. All of the organs are in the amniotic space and in some areas appear to be part of or fused with the amnion. The umbilical cord is extremely short. There is a single umbilical artery. The heart remains in the chest but is deviated medially. There is also evidence of a cardiac defect as there is a dominant ventricle noted. 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 The spine has marked scoliosis. The fetus is very near the placenta and does not move away from the placenta. Chorion and amnion are in several areas. Normal findings include that the fetus has 4 extremities. My Impression and recommendations include the following: Edrg-Nqki-Vwij complex. The findings are not compatible with life. Her choices include termination versus carrying the to term (or demise, whichever occurs first). If she chooses to carry the , delivery would probably need to be done by , without any expectation that the fetus would live after delivery. She reports that she is interested in termination. We discussed that regionally, [facility] at [facility]. She was able to speak with the genetic counselor who gave her some resources. Her primary OB, Dr. Vu will call her later today. This office remains available to assist further in any way that we can. It was explained to the couple that what we are seeing does not have a clear cause, and should not recur in a follow-up . Thank you for the opportunity to participate in the care of Jeff Rushing. Please feel free to contact me if you have any questions. I am very sorry to have to share these findings with this family. Billing Components Chart review and preparation: 10 minutes. Face to face: 15 minutes. Documentation and care coordination: 15 minutes. =-=-=-=-=-=-==-=-=- =-=-=-==-=-=-=-=-=- ==-=-=-=-= Total time spent on patient care today: 40 minutes. Tere Reed MD [facility] Cardiology Visit Reporton Cardiology Visit Report [facility] [address] [place], [place] [address] OFFICE VISIT Date of Service: 10/12/24 MR#: [id number] Acct: [id number] Name: JEFF RUSHING Rep #: [id number] : 1995 Provider: Dr. Pepe Cuellar MD Age/Sex: 29/F Location: [facility] [place] Status: Signed HPI HPI History of Present Illness Details: 29-year-old lady who says that she presented to an emergency room in [place] in 2019 with palpitations she was told that she had Mllbo-Lqvsjtulq-Yvn te she had a 24-hour multi performed with did not demonstrate any significant sustained arrhythmias or evidence of preexcitation pattern. She has not had any episodes since then and is currently with hypertension and her OB sent her to us to find out whether beta-blockers which are the safest medications during will be able to be used. She has had no dizziness or diaphoresis no near-syncope or syncope she has had occasional palpitations but nothing sustained. She has been compliant with all her medications. Her physical exam is unremarkable her electrocardiogram demonstrates sinus rhythm with a premature atrial complex/an ectopic atrial complex and a rate of 90 bpm. Intake Vital Signs 10/11/24 13:05 10/12/24 13:45 Height 5 ft 8 in 5 ft 8 in Weight: 240 lb BMI 36.5 BP 134/87 H Blood Pressure Location Lt brachial Position Sitting Respiration 16 Pulse 110 H Pulse Source Monitor Intake Visit Reasons: HTN/RICKY-PARKINSON -WHITE SYNDROME (VANDMAYEELDE) Special Inspector Required: No Accompanied by: Self Is patient in pain?: No Allergies Iodinated Contrast Media Allergy (Mild, Verified 10/12/24 13:49) Hives Medications ???Medication ???Instructions ???Recorded ???Confirmed ???Type multivit-min no.71-iron fum 28 cap PO 07/16/24 10/12/24 History mg-folate no.1 1 mg-dha 300 mg capsule (PNV-Easton) metoclopramide HCl 5 mg tablet 5 mg PO Q8H PRN nausea and 10/12/24 Rx (Reglan) vomiting #21 tabs promethazine 12.5 mg tablet 12.5 mg PO Q6H PRN nausea and 09/0810/12/24 Rx vomiting #90 tabs aspirin 81 mg tablet,delayed 81 mg PO QDAY 10/12/24 10/12/24 Hi story release (Adult Aspirin Regimen) labetalol 100 mg tablet 100 mg PO TID #90 tabs 10/12/24 Rx PFSH Medical History Palpitations Chronic hypertension affecting Migraine headache Obesity affecting History of recurrent miscarriages Supervision of high-risk Anxiety Indvt-Fzxvonidm-Rut te syndrome Bicornuate uterus Recurrent loss Trichomonal vaginitis Seasonal allergies Shingles Cyst of spleen Surgical History [place] teeth removed Family History Grandmother Throat [...] physical activity do you participate in: none whitney/congregational: Jehovah'S Witness seatbelt use: always do you feel safe at home: Yes additional social history: Significant other - Franck ROS Const Const: Positive for headache(s); Negative for fatigue, weakness, daytime sleepiness or difficulty sleeping Eyes Eyes: Positive for change in vision ENT ENT: Positive for headache(s) and dizziness; Negative for Nosebleed/epistaxis Cardio Chest Pain: No Palpitations: Yes (fluttering) Edema: None Resp Respiratory: Negative for SOB with activity, SOB at rest, SOB orthopnea SOB lying down or Cough GI GI: Positive for heartburn; Negative nausea or vomiting Neuro (more content not included)... Normal [facility] Anion gap in Serum or Plasma Ordered By: Diana Soliman on 10-11-2024 Anion gap [Moles/Vol] 14 mmol/L 5-15 [facility] Automated blood erythrocyte countOrdered By: Diana Soliman on 10-11-2024 RBC (Bld) [#/Vol] 4.68 10*6/uL Normal 4.2-5.4 [facility] Comment on above: Performed By: #### L 501.1400, L500.4050, L504.2610, L100.0500 ####[facility] [address] [place], [place], [address] Automated blood hematocrit ( percentage)Ordered By: Diana Soliman on 10-11-2024 Hematocrit (Bld) [Volume fraction] 39.5 % Normal 37-47 [facility] Comment on above: Performed By: #### L 501.1400, L500.4050, L504.2610, L100.0500 ####[facility] [address] [place], [address] BUN/creatinine ratioOrdered By: Diana Soliman on 10-11-2024 Urea nitrogen/Creatinine [Mass ratio] 16.7 mg/mg 10-20 [facility] Bilirubin, totalOrdered By: Diana Soliman on 10-11-2024 Bilirubin [Mass/Vol] 0.26 mg/dL 0.00-1.30 [facility] CBC-Complete Blood Cnt No Di ffon 10-11-2024 RDW SD 38.8 fl Normal 35.1-43.9 [facility] Comment on above: Performed By: #### L 501.1400, L500.4050, L504.2610, L100.0500 ####[facility] [address] [place], [place], [id number] Carbon dioxide, total [Moles /volume] in Central venous bloodOrdered By: Diana Soliman on 10-11-2024 CO2 [Moles/Vol] 20.7 mmol/L Low 21.0-32.0 [facility] Chloride assayOrdered By: Adonis Soliman on 10-11-2024 Chloride [Moles/Vol] 102 mmol/L 98-108 [facility] Comprehensive Metabolic Prof ilon 10-11-2024 Albumin [Mass/Vol] 4.2 g/dL Normal 3.5-5.0 [facility] Comment on above: Performed By: #### L 501.1400, L500.4050, L504.2610, L100.0500 ####[facility] [address] [place], [address] Albumin/Globulin [Mass ratio] 1.5 {ratio} Normal 0.9-2.4 [facility] Comment on above: Performed By: #### L 501.1400, L500.4050, L504.2610, L100.0500 ####[facility] [address] [place], [address] ALK PHOS 62 U/L Normal 35-104 [facility] Comment on above: Performed By: #### L 501.1400, L500.4050, L504.2610, L100.0500 ####[facility] [address] [place], [address] ALT [Catalytic activity/Vol] 18 U/L Normal <=34 [facility] Comment on above: Performed By: #### L 501.1400, L500.4050, L504.2610, L100.0500 ####[facility] [address] [place], [address] AST [Catalytic activity/Vol] 17 U/L Normal <=31 [facility] Comment on above: Performed By: #### L 501.1400, L500.4050, L504.2610, L100.0500 ####[facility] [address] [place], [address] Bilirubin [Mass/Vol] 0.26 mg/dL Normal 0.00-1.30 [facility] Comment on above: Performed By: #### L 501.1400, L500.4050, L504.2610, L100.0500 ####[facility] [address] [place], [address] BUN/CRE 16.7 RATIO Normal 10-20 [facility] Comment on above: Performed By: #### L 501.1400, L500.4050, L504.2610, L100.0500 ####[facility] [address] [place], [address] Calcium [Mass/Vol] 9.2 mg/dL Normal 7.6-11.0 [facility] Comment on above: Performed By: #### L 501.1400, L500.4050, L504.2610, L100.0500 ####[facility] [address] [place], [address] Chloride [Moles/Vol] 102 mmol/L Normal 98-108 [facility] Comment on above: Performed By: #### L 501.1400, L500.4050, L504.2610, L100.0500 ####[facility] [address] [place], [address] CO2 [Moles/Vol] 20.7 mmol/L Low 21.0-32.0 [facility] Comment on above: Performed By: #### L 501.1400, L500.4050, L504.2610, L100.0500 ####[facility] [address] [place], [address] Creatinine [Mass/Vol] 0.36 mg/dL Low 0.70-1.20 [facility] Comment on above: Performed By: #### L 501.1400, L500.4050, L504.2610, L100.0500 ####[facility] [address] [place], [address] GAP 14 Normal 5-15 [facility] Comment on above: Performed By: #### L 501.1400, L500.4050, L504.2610, L100.0500 ####[facility] [address] [place], [address] GFR/1.73 sq M.predicted among non-blacks MDRD (S/P/Bld) [Vol rate/Area] 143 mL/min/{1.73_m2} Normal >60 [facility] Comment on above: Result Comment: mL/m in/1.73m2 CKD-EPI Creatinine Equation (2020) Performed By: #### L 501.1400, L500.4050, L504.2610, L100.0500 ####[facility] [address] [place], [address] Globulin (S) [Mass/Vol] 2.7 g/dL Normal 2.2-4.2 [facility] Comment on above: Performed By: #### L 501.1400, L500.4050, L504.2610, L100.0500 ####[facility] [address] [place], [address] Glucose [Mass/Vol] 76 mg/dL Normal 70-99 [facility] Comment on above: Performed By: #### L 501.1400, L500.4050, L504.2610, L100.0500 ####[facility] [address] [place], [address] Potassium [Moles/Vol] 3.8 mmol/L Normal 3.3-5.1 [facility] Comment on above: Performed By: #### L 501.1400, L500.4050, L504.2610, L100.0500 ####[facility] [address] [place], [address] Sodium [Moles/Vol] 137 mmol/L Normal 133-145 [facility] Comment on above: Performed By: #### L 501.1400, L500.4050, L504.2610, L100.0500 ####[facility] [address] [place], [address] T PROT 6.9 g/dL Normal 5.9-8.4 [facility] Comment on above: Performed By: #### L 501.1400, L500.4050, L504.2610, L100.0500 ####[facility] [address] [place], [address] Urea nitrogen [Mass/Vol] 6 mg/dL Normal 4-19 [facility] Comment on above: Performed By: #### L 501.1400, L500.4050, L504.2610, L100.0500 ####[facility] [address] [place], [address] Erythrocyte distribution wid th ratioOrdered By: Diana Soliman on 10-11-2024 Erythrocyte distribution width (RBC) [Ratio] 12.8 % Normal 11.6-14.6 [facility] Comment on above: Performed By: #### L 501.1400, L500.4050, L504.2610, L100.0500 ####[facility] [address] [place], [address] Erythrocyte distribution wid th standard deviationOrdered By: Diana Soliman on 10-11-2024 Erythrocyte distribution width (RBC) [Ratio] 38.8 fl 35.1-43.9 [facility] Glomerular filtration rate ( GFR) estimation/1.73 sq m using serum, plasma, or whole bOrdered By: Diana Soliman on 10-11-2024 GFR/1.73 sq M.predicted among non-blacks MDRD (S/P/Bld) [Vol rate/Area] 143 mL/min/{1.73_m2} >60 [facility] Comment on above: mL/min/1.73m2 CKD-EP I Creatinine Equation (2020) Hemoglobin measurementOrdere d By: Diana Soliman on 10-11-2024 Hemoglobin (Bld) [Mass/Vol] 13.4 g/dL Normal 12.0-15.0 [facility] Comment on above: Performed By: #### L 501.1400, L500.4050, L504.2610, L100.0500 ####[facility] [address] [place], [address] LDHon 10-11-2024 LDH 146 U/L Normal 84-246 [facility] Comment on above: Order Comment: 1 Performed By: #### L 501.1400, L500.4050, L504.2610, L100.0500 ####[facility] [address] [place], [place], [id number] Laboratory - Chemistry and C hemistry - challengeOrdered By: Diana Soliman on 10-11-2024 AST [Catalytic activity/Vol] 17 U/L <32 [facility] Glucose Ql (U) Negative [facility] Laboratory - UrinalysisOrder ed By: Diana Soliman on 10-11-2024 Protein Ql (U) Negative [facility] Lactate dehydrogenase (LDH) measurementOrdered By: Diana Soliman on 10-11-2024 LDH [Catalytic activity/Vol] 146 U/L 84-246 [facility] MCV (mean corpuscular volume ) determinationOrdered By: Diana Soliman on 10-11-2024 MCV (RBC) [Entitic vol] 84.4 fL Normal 81-99 [facility] Comment on above: Performed By: #### L 501.1400, L500.4050, L504.2610, L100.0500 ####[facility] [address] [place], [address] Mean corpuscular hemoglobin (MCH) determinationOrdered By: Diana Soliman on 10-11-2024 MCH (RBC) [Entitic mass] 28.6 pg Normal 27.0-32.0 [facility] Comment on above: Performed By: #### L 501.1400, L500.4050, L504.2610, L100.0500 ####[facility] [address] [place], [place], [id number] Mean corpuscular hemoglobin concentration (MCHC) determinationOrdered By: Diana Soliman on 10-11-2024 MCHC (RBC) [Mass/Vol] 33.9 g/dL Normal 32-36 [facility] Comment on above: Performed By: #### L 501.1400, L500.4050, L504.2610, L100.0500 ####[facility] [address] [place], [address] Mean platelet volume determi nationOrdered By: Diana Soliman on 10-11-2024 Platelet mean volume (Bld) [Entitic vol] 12.3 fL High 6.2-12.0 [facility] Comment on above: Performed By: #### L 501.1400, L500.4050, L504.2610, L100.0500 ####[facility] [address] [place], [address] Film Or Videotape Editor Office Visit Reporton 10-11-2024 Film Or Videotape Editor Office Visit Report [facility] [address], [address] [place] [address] OFFICE VISIT Date of Service: 10/11/24 MR#: [id number] Acct: [id number] Name: JEFF RUSHING Rep #: [id number] : 1995 Provider: Dr. Diana Morton DO Age/Sex: 29/F Location: [facility] Status: Signed Intake Vital Signs 10/01/24 11:43 10/11/24 09:13 10/11/24 13:05 Height 5 ft 8 in 5 ft 8 in 5 ft 8 in Weight: 242 lb 2 oz BMI 36.8 BP 132/86 H Intake Visit Reasons: OB high BP - see note Special Inspector Required: No Is patient in pain?: No Allergies Iodinated Contrast Media Allergy (Mild, Verified 10/11/24 13:04) Hives Medications ???Medication ???Instructions ???Recorded ???Confirmed ???Type multivit-min no.71-iron fum 28 cap PO 07/16/24 10/11/24 History mg-folate no.1 1 mg-dha 300 mg capsule (PNV-[place]) metoclopramide HCl 5 mg tablet 5 mg PO Q8H PRN nausea and 10/11/24 Rx (Reglan) vomiting #21 tabs promethazine 12.5 mg tablet 12.5 mg PO Q6H PRN nausea and 09/0810/11/24 Rx vomiting #90 tabs Last Menstrual Period: 05/29/24 Zika: Zika virus screening: Negative : No PFSH PFSH Medical History Recurrent loss Trichomonal vaginitis Seasonal allergies Shingles Cyst of spleen Surgical History [place] teeth removed Family History Grandmother Throat [...] physical activity do you participate in: none whitney/congregational: Jehovah'[employer] Witness seatbelt use: always do you feel safe [...] chemical 4 spontaneous 07/16/212021 5 spontaneous HPI OB high BP - see note Details: JEFF RUSHING is a 29 year old who presents for routine OB visit. OB Visit JYOTHI Calculator Estimated Delivery Date Method Current WG Current Estimate 03/13/25 Ultrasound #1 18w 1d Other Estimates 03/05/25 LMP (Certain) 19w 2d 03/17/25 Ultrasound #2 17w 4d Expected Delivery Route/Plan Labor Preferences- CB/BF [...] ??-???-???- EGA Weight BP Urine Prot -???-???-???-???-?? ?-???-???-???-???-? ??-???-???- Glucose FHR FuHt Pres Dilation -???-???-???-???-?? ?-???-???-???-???-? ??-???-???- Effaced St Visit Note 07/27/24 -???-???-???-???-?? ?-???-???-???-???-? ??-???-???- 7w 2d (more content not included)... Normal [facility] Platelet countOrdered By: Adonis Soliman on 10-11-2024 Platelets (Bld) [#/Vol] 169 10*3/uL Normal 150-450 [facility] Comment on above: Performed By: #### L 501.1400, L500.4050, L504.2610, L100.0500 ####[facility] [address] [place], [address] Potassium measurement (mass/ volume)Ordered By: Diana Soliman on 10-11-2024 Potassium (Unsp spec) [Mass/Vol] 3.8 mmol/L 3.3-5.1 [facility] Protein+Creatinine Ratio,Uri neon 10-11-2024 PROT:CRE RATIO 110 mg/g CRE Normal 0-200 [facility] Comment on above: Performed By: #### L 501.0900 #### [facility] [address] [place], [address] Protein (U) [Mass/Vol] 7.7 mg/dL Normal 0.0-12.0 [facility] Comment on above: Performed By: #### L 501.0900 #### [facility] [address] [place], [address] UR CREAT 70.30 mg/dL Normal 28.00-217.00 [facility] Comment on above: Performed By: #### L 501.0900 #### [facility] [address] [place], [address] Random urine creatinine ash urement (mass/volume)Ordered By: Diana Soliman on 10-11-2024 Creatinine Unsp time (U) [Mass/Vol] 70.30 mg/dL 28.00-217.00 [facility] Serum creatinine measurement (mass/volume)Ordered By: Diana Soliman on 10-11-2024 Creatinine [Mass/Vol] 0.36 mg/dL Low 0.70-1.20 [facility] Serum globulin measurementOr dered By: Diana Soliman on 10-11-2024 Globulin (S) [Mass/Vol] 2.7 g/dL 2.2-4.[address] [facility] Serum glucose measurement (m ass/volume)Ordered By: Diana Soliman on 08-04-2025 Glucose [Mass/Vol] 76 mg/dL 70-99 [facility] Serum or plasma alanine bae otransferase (ALT) measurementOrdered By: Diana Soliman on 10-11-2024 ALT [Catalytic activity/Vol] 18 U/L <35 [facility] Serum or plasma albumin ash urement (mass/volume)Ordered By: Diana Soliman on 10-11-2024 Albumin [Mass/Vol] 4.2 g/dL 3.5-5.0 [facility] Serum or plasma albumin/glob ulin mass ratioOrdered By: Diana Soliman on 10-11-2024 Albumin/Globulin [Mass ratio] 1.5 {ratio} 0.9-2.4 [facility] Serum or plasma alkaline belle sphatase measurementOrdered By: Diana Soliman on 10-11-2024 ALP [Catalytic activity/Vol] 62 U/L 35-104 [facility] Serum or plasma calcium ash urement (mass/volume)Ordered By: Diana Soliman on 10-11-2024 Calcium [Mass/Vol] 9.2 mg/dL 7.6-11.0 [facility] Serum or plasma urea nitroge n measurement (mass/volume)Ordered By: Diana Soliman on 10-11-2024 Urea nitrogen [Mass/Vol] 6 mg/dL 4-19 [facility] Serum or plasma uric acid me asurement (mass/volume)Ordered By: Diana Soliman on 10-11-2024 Urate [Mass/Vol] 3.0 mg/dL 2.6-6.0 [facility] Comment on above: The drugs N-Acetylcy steine and Metamizole may falsely depress this assay. Sodium levelOrdered By: Caitlin Soliman on 10-11-2024 Sodium [Moles/Vol] 137 mmol/L 133-145 [facility] Total proteinOrdered By: Zayra Soliman on 10-11-2024 Protein [Mass/Vol] 6.9 g/dL 5.9-8.4 [facility] Uric Acidon 10-11-2024 URIC 3.0 mg/dL Normal 2.6-6.0 [facility] Comment on above: Result Comment: The drugs N-Acetylcysteine and Metamizole may falsely depress this assay. Performed By: #### L 501.1400, L500.4050, L504.2610, L100.0500 ####[facility] [address] [place], [place], [phone] Urine protein measurement (m ass/volume)Ordered By: Diana Soliman on 10-11-2024 Protein (U) [Mass/Vol] 7.7 mg/dL 0.0-12.0 [facility] Urine protein/creatinine mas s ratioOrdered By: Diana Soliman on 10-11-2024 Protein/Creatinine (U) [Mass ratio] 110 mg/g CRE 0-200 [facility] White blood cell (WBC) count Ordered By: Diana Soliman on 10-11-2024 WBC (Bld) [#/Vol] 7.2 10*3/uL Normal 4.4-11.0 [facility] Comment on above: Performed By: #### L 501.1400, L500.4050, L504.2610, L100.0500 ####[facility] [address] [place], [place], [id number] Absolute lymphocyte countOrd ered By: Karen Vu on 10-01-2024 Lymphocytes Auto (Unsp spec) [#/Vol] 1.75 10*3/uL 0.83-4.51 [facility] Absolute neutrophil countOrd ered By: Karen Vu on 10-01-2024 Neutrophils (Bld) [#/Vol] 4.6 10*3/uL 2.0-7.7 [facility] Anion gap in Serum or Plasma Ordered By: Karen Vu on 10-01-2024 Anion gap [Moles/Vol] 12 mmol/L 5-15 [facility] Automated lymphocyte count a s percentage of total leukocytesOrdered By: Karen Vu on 10-01-2024 Lymphocytes/100 WBC Auto (Unsp spec) 26.0 % 19-41 [facility] BUN/creatinine ratioOrdered By: Karen Vu on 10-01-2024 Urea nitrogen/Creatinine [Mass ratio] 14.9 mg/mg 10-20 [facility] Basophil percentageOrdered B y: Karen Vu on 10-01-2024 Basophils/100 WBC (Bld) 0.0 % 0-[address] [facility] Bilirubin, totalOrdered By: Karen Vu on 10-01-2024 Bilirubin [Mass/Vol] 0.20 mg/dL 0.00-1.30 [facility] CBC W/Diff, Automatedon 09-08 Absolute Lymph 1.75 X10 3/uL Normal 0.83-4.51 [facility] Comment on above: Performed By: #### L 501.0900, L100.0100, L500.4050 #### [facility] [address] [place], [address] Absolute Neut 4.6 X10 3/uL Normal 2.0-7.7 [facility] Comment on above: Performed By: #### L 501.0900, L100.0100, L500.4050 #### [facility] [address] [place], [address] Basophils/100 WBC (Bld) 0.0 % Normal 0-[address] [facility] Comment on above: Performed By: #### L 501.0900, L100.0100, L500.4050 #### [facility] [address] [place], [address] Eosinophils/100 WBC (Bld) 0.9 % Normal 0-5 [facility] Comment on above: Performed By: #### L 501.0900, L100.0100, L500.4050 #### [facility] [address] [place], [address] Erythrocyte distribution width (RBC) [Ratio] 12.3 % Normal 11.6-14.6 [facility] Comment on above: Performed By: #### L 501.0900, L100.0100, L500.4050 #### [facility] [address] [place], [address] Hematocrit (Bld) [Volume fraction] 39.9 % Normal 37-47 [facility] Comment on above: Performed By: #### L 501.0900, L100.0100, L500.4050 #### [facility] [address] [place], [address] Hemoglobin (Bld) [Mass/Vol] 13.6 g/dL Normal 12.0-15.0 [facility] Comment on above: Performed By: #### L 501.0900, L100.0100, L500.4050 #### [facility] [address] [place], [address] IG% 0.400 Normal 0.0-0.9 [facility] Comment on above: Result Comment: IG% - Immature Granulocytes (promyelocytes, myelocytes and metamyelocytes) > 1% indicates that a LEFT SHIFT is Present. Performed By: #### L 501.0900, L100.0100, L500.4050 #### [facility] [address] [place], [address] Lymphocytes/100 WBC (Bld) 26.0 % Normal 19-41 [facility] Comment on above: Performed By: #### L 501.0900, L100.0100, L500.4050 #### [facility] [address] [place], [address] MCH (RBC) [Entitic mass] 28.9 pg Normal 27.0-32.0 [facility] Comment on above: Performed By: #### L 501.0900, L100.0100, L500.4050 #### [facility] [address] [place], [address] MCHC (RBC) [Mass/Vol] 34.1 g/dL Normal 32-36 [facility] Comment on above: Performed By: #### L 501.0900, L100.0100, L500.4050 #### [place] [facility] [address] [place], [address] MCV (RBC) [Entitic vol] 84.9 fL Normal 81-[address] [facility] Comment on above: Performed By: #### L 501.0900, L100.0100, L500.4050 #### [facility] [address] [place], [address] Monocytes/100 WBC (Bld) 4.9 % Normal 0-10 [facility] Comment on above: Performed By: #### L 501.0900, L100.0100, L500.4050 #### [facility] [address] [place], [address] Neutrophils/100 WBC (Bld) 67.8 % Normal 47-70 [facility] Comment on above: Performed By: #### L 501.0900, L100.0100, L500.4050 #### [facility] [address] [place], [address] Nucleated RBC (Bld) [#/Vol] 0 10*3/uL Normal 0-5 [facility] Comment on above: Performed By: #### L 501.0900, L100.0100, L500.4050 #### [facility] [address] [place], [address] Platelet mean volume (Bld) [Entitic vol] 11.9 fL Normal 6.2-12.0 [facility] Comment on above: Performed By: #### L 501.0900, L100.0100, L500.4050 #### [facility] [address] [place], [address] Platelets (Bld) [#/Vol] 177 10*3/uL Normal 150-450 [facility] Comment on above: Performed By: #### L 501.0900, L100.0100, L500.4050 #### [facility] [address] [place], [address] RBC (Bld) [#/Vol] 4.70 10*6/uL Normal 4.2-5.4 [facility] Comment on above: Performed By: #### L 501.0900, L100.0100, L500.4050 #### [facility] [address] [place], [address] RDW SD 37.5 fl Normal 35.1-43.9 [facility] Comment on above: Performed By: #### L 501.0900, L100.0100, L500.4050 #### [facility] [address] [place], [address] WBC (Bld) [#/Vol] 6.7 10*3/uL Normal 4.4-11.0 [facility] Comment on above: Performed By: #### L 501.0900, L100.0100, L500.4050 #### [facility] [address] [place], [address] Carbon dioxide, total [Moles /volume] in Central venous bloodOrdered By: Karen Vu on 10-01-2024 CO2 [Moles/Vol] 19.9 mmol/L Low 21.0-32.0 [facility] Chloride assayOrdered By: Tomasa Vu on 10-01-2024 Chloride [Moles/Vol] 105 mmol/L 98-108 [facility] Comprehensive Metabolic Prof ilon 10-01-2024 Albumin [Mass/Vol] 3.8 g/dL Normal 3.5-5.0 [facility] Comment on above: Performed By: #### L 501.0900, L100.0100, L500.4050 #### [facility] [address] [place], [address] Albumin/Globulin [Mass ratio] 1.3 {ratio} Normal 0.9-2.4 [facility] Comment on above: Performed By: #### L 501.0900, L100.0100, L500.4050 #### [facility] [address] [place], [address] ALK PHOS 62 U/L Normal 35-104 [facility] Comment on above: Performed By: #### L 501.0900, L100.0100, L500.4050 #### [facility] [address] [place], [address] ALT [Catalytic activity/Vol] 10 U/L Normal <=34 [facility] Comment on above: Performed By: #### L 501.0900, L100.0100, L500.4050 #### [facility] [address] [place], [address] AST [Catalytic activity/Vol] 12 U/L Normal <=31 [facility] Comment on above: Performed By: #### L 501.0900, L100.0100, L500.4050 #### [facility] [address] [place], [address] Bilirubin [Mass/Vol] 0.20 mg/dL Normal 0.00-1.30 [facility] Comment on above: Performed By: #### L 501.0900, L100.0100, L500.4050 #### [facility] [address] [place], [address] BUN/CRE 14.9 RATIO Normal 10-20 [facility] Comment on above: Performed By: #### L 501.0900, L100.0100, L500.4050 #### [facility] [address] [place], [address] Calcium [Mass/Vol] 9.3 mg/dL Normal 7.6-11.0 [facility] Comment on above: Performed By: #### L 501.0900, L100.0100, L500.4050 #### [facility] [address] [place], [address] Chloride [Moles/Vol] 105 mmol/L Normal 98-108 [facility] Comment on above: Performed By: #### L 501.0900, L100.0100, L500.4050 #### [facility] [address] [place], [address] CO2 [Moles/Vol] 19.9 mmol/L Low 21.0-32.0 [facility] Comment on above: Performed By: #### L 501.0900, L100.0100, L500.4050 #### [facility] [address] [place], [address] Creatinine [Mass/Vol] 0.35 mg/dL Low 0.70-1.20 [facility] Comment on above: Performed By: #### L 501.0900, L100.0100, L500.4050 #### [facility] [address] [place], [address] GAP 12 Normal 5-15 [facility] Comment on above: Performed By: #### L 501.0900, L100.0100, L500.4050 #### [facility] [address] [place], [address] GFR/1.73 sq M.predicted among non-blacks MDRD (S/P/Bld) [Vol rate/Area] 144 mL/min/{1.73_m2} Normal >60 [facility] Comment on above: Result Comment: mL/m in/1.73m2 CKD-EPI Creatinine Equation (2020) Performed By: #### L 501.0900, L100.0100, L500.4050 #### [facility] [address] [place], [address] Globulin (S) [Mass/Vol] 2.9 g/dL Normal 2.2-4.2 [facility] Comment on above: Performed By: #### L 501.0900, L100.0100, L500.4050 #### [facility] [address] [place], [address] Glucose [Mass/Vol] 81 mg/dL Normal 70-99 [facility] Comment on above: Performed By: #### L 501.0900, L100.0100, L500.4050 #### [facility] [address] [place], [address] Potassium [Moles/Vol] 3.9 mmol/L Normal 3.3-5.1 [facility] Comment on above: Performed By: #### L 501.0900, L100.0100, L500.4050 #### [facility] [address] [place], [address] Sodium [Moles/Vol] 136 mmol/L Normal 133-145 [facility] Comment on above: Performed By: #### L 501.0900, L100.0100, L500.4050 #### [facility] [address] [place], [address] T PROT 6.7 g/dL Normal 5.9-8.4 [facility] Comment on above: Performed By: #### L 501.0900, L100.0100, L500.4050 #### [facility] [address] [place], [address] Urea nitrogen [Mass/Vol] 5 mg/dL Normal 4-19 [facility] Comment on above: Performed By: #### L 501.0900, L100.0100, L500.4050 #### [facility] [address] [place], [address] Eosinophil percentageOrdered By: Karen Vu on 10-01-2024 Eosinophils/100 WBC (Bld) 0.9 % 0-5 [facility] Erythrocyte distribution wid th ratioOrdered By: Karen Vu on 10-01-2024 Erythrocyte distribution width (RBC) [Ratio] 12.3 % 11.6-14.6 [facility] Erythrocyte distribution wid th standard deviationOrdered By: Karen Vu on 10-01-2024 Erythrocyte distribution width (RBC) [Ratio] 37.5 fl 35.1-43.9 [facility] Glomerular filtration rate ( GFR) estimation/1.73 sq m using serum, plasma, or whole bOrdered By: Karen Vu on 10-01-2024 GFR/1.73 sq M.predicted among non-blacks MDRD (S/P/Bld) [Vol rate/Area] 144 mL/min/{1.73_m2} >60 [facility] Comment on above: mL/min/1.73m2 CKD-EP I Creatinine Equation (2020) Hematocrit Auto (Bld) [Volum e fraction]Ordered By: Karen Vu on 10-01-2024 Hematocrit (Bld) [Volume fraction] 39.9 % 37-47 [facility] Hemoglobin measurementOrdere d By: Karen Vu on 10-01-2024 Hemoglobin (Bld) [Mass/Vol] 13.6 g/dL 12.0-15.0 [facility] Immature granulocytes/100 WB C Auto (Bld)Ordered By: Karen Vu on 10-01-2024 Immature granulocytes/100 WBC (Bld) 0.400 % 0.0-0.9 [facility] Comment on above: IG% - Immature Granu locytes (promyelocytes, myelocytes and metamyelocytes) > 1% indicates that a LEFT SHIFT is Present. Laboratory - Chemistry and C hemistry - challengeOrdered By: Karen Vu on 10-01-2024 AST [Catalytic activity/Vol] 12 U/L <32 [facility] Glucose Ql (U) 500 g/dL [facility] Laboratory - UrinalysisOrder ed By: Karen Vu on 10-01-2024 Protein Ql (U) 1+ [facility] MCV (mean corpuscular volume ) determinationOrdered By: Karen Vu on 10-01-2024 MCV (RBC) [Entitic vol] 84.9 fL 81-[address] [facility] Mean corpuscular hemoglobin (MCH) determinationOrdered By: Karen Vu on 10-01-2024 MCH (RBC) [Entitic mass] 28.9 pg 27.0-32.0 [facility] Mean corpuscular hemoglobin concentration (MCHC) determinationOrdered By: Karen Vu on 10-01-2024 MCHC (RBC) [Mass/Vol] 34.1 g/dL 32-36 [facility] Mean platelet volume determi nationOrdered By: Karen Vu on 10-01-2024 Platelet mean volume (Bld) [Entitic vol] 11.9 fL 6.2-12.0 [facility] Monocyte percentageOrdered B y: Karen Vu on 10-01-2024 Monocytes/100 WBC (Bld) 4.9 % 0-[address] [facility] Neutrophil percentageOrdered By: Karen Vu on 10-01-2024 Neutrophils/100 WBC (Bld) 67.8 % 47-70 [facility] Nucleated red blood cell per centageOrdered By: Karen Vu on 10-01-2024 Nucleated RBC/100 WBC (Bld) [Ratio] 0 % 0-5 [facility] Film Or Videotape Editor Office Visit Reporton 10-01-2024 Film Or Videotape Editor Office Visit Report [facility] [address], [address] [place] [address] OFFICE VISIT Date of Service: 10/01/24 MR#: [id number] Acct: [id number] Name: JEFF RUSHING Rep #: [id number] : 1995 Provider: Dr. Karen reza MD Age/Sex: 29/F Location: [facility] Status: Signed Intake Vital Signs 09/01/24 15:49 09/29/24 21:46 10/01/24 11:43 10/01/24 12:05 Height 5 ft 8 in 5 ft 8 in 5 ft 8 in Weight: 238 lb 6 oz BMI 36.2 BP 138/91 H 124/87 H Intake Visit Reasons: 16wk ob Special Inspector Required: No Is patient in pain?: Yes (headache since Friday) Feel stressed/tense/nerv ous/anxious/difficu lty sleeping: not at all Allergies Iodinated Contrast Media Allergy (Mild, Verified 10/01/24 11:42) Hives Medications ???Medication ???Instructions ???Recorded ???Confirmed ???Type multivit-min no.71-iron fum 28 cap PO 07/16/24 10/01/24 History mg-folate no.1 1 mg-dha 300 mg capsule (PNV-Easton) metoclopramide HCl 5 mg tablet 5 mg PO Q8H PRN nausea and 5 10/01/24 Rx (Reglan) vomiting #21 tabs promethazine 12.5 mg tablet 12.5 mg PO Q6H PRN nausea and 09/0810/01/24 Rx vomiting #90 tabs Last Menstrual Period: 05/29/24 Zika: Zika virus screening: Negative : No PFSH PFSH Medical History (Updated 10/01/24 @ 12:[address] Karen Vu MD) Recurrent loss Trichomonal vaginitis Seasonal allergies Shingles Cyst of spleen Surgical History [place] teeth removed Family History Grandmother Throat [...] physical activity do you participate in: none whitney/congregational: Jehovah'S Witness seatbelt use: always do you feel safe [...] chemical 4 spontaneous 07/16/212021 5 spontaneous HPI 16wk ob Details: JEFF RUSHING is a 29 year old who presents for routine OB visit. OB Visit JYOTHI Calculator Estimated Delivery Date Method Current WG Current Estimate 03/13/25 Ultrasound #1 16w 5d Other Estimates 03/05/25 LMP (Certain) 17w 6d 03/17/25 Ultrasound #2 16w 1d Expected Delivery Route/Plan Labor Preferences- CB/BF [...] ??-???-???- EGA Weight BP Urine Prot -???-???-???-???-?? ?-???-???-???-???-? ??-???-???- Glucose FHR FuHt Pres Dilation -???-???-???-???-?? ?-???-???-???-???-? ??-???-???- Effa (more content not included)... Normal [facility] Platelet countOrdered By: Tomasa tyson Vu on 10-01-2024 Platelets (Bld) [#/Vol] 177 10*3/uL 150-450 [facility] Potassium measurement (mass/ volume)Ordered By: Karen Janischuy on 10-01-2024 Potassium (Unsp spec) [Mass/Vol] 3.9 mmol/L 3.3-5.1 [facility] Protein+Creatinine Ratio,Uri neon 10-01-2024 PROT:CRE RATIO 188 mg/g CRE Normal 0-200 [facility] Comment on above: Performed By: #### L 501.0900 #### [facility] [address] [place], [address] Protein (U) [Mass/Vol] 28.7 mg/dL High 0.0-12.0 [facility] Comment on above: Performed By: #### L 501.0900 #### [facility] [address] [place], [address] UR CREAT 153.00 mg/dL Normal 28.00-217.00 [facility] Comment on above: Performed By: #### L 501.0900 #### [facility] [address] [place], [address] PROT:CRE RATIO 229 mg/g CRE High 0-200 [facility] Comment on above: Performed By: #### L 501.0900, L100.0100, L500.4050 #### [facility] [address] [place], [address] Protein (U) [Mass/Vol] 46.2 mg/dL High 0.0-12.0 [facility] Comment on above: Performed By: #### L 501.0900, L100.0100, L500.4050 #### [facility] [address] [place], [address] UR CREAT 202.00 mg/dL Normal 28.00-217.00 [facility] Comment on above: Performed By: #### L 501.0900, L100.0100, L500.4050 #### [facility] [address] [place], [address] RBC Auto (Bld) [#/Vol]Ordere d By: Karen Vu on 10-01-2024 RBC (Bld) [#/Vol] 4.70 10*6/uL 4.2-5.4 [facility] Random urine creatinine ash urement (mass/volume)Ordered By: Karen Vu on 10-01-2024 Creatinine Unsp time (U) [Mass/Vol] 153.00 mg/dL 28.00-217.00 [facility] Serum creatinine measurement (mass/volume)Ordered By: Karen Vu on 10-01-2024 Creatinine [Mass/Vol] 0.35 mg/dL Low 0.70-1.20 [facility] Serum globulin measurementOr dered By: Karen Vu on 10-01-2024 Globulin (S) [Mass/Vol] 2.9 g/dL 2.2-4.[address] [facility] Serum glucose measurement (m ass/volume)Ordered By: Karen Vu on 10-01-2024 Glucose [Mass/Vol] 81 mg/dL 70-99 [facility] Serum or plasma alanine bae otransferase (ALT) measurementOrdered By: Karen Vu on 10-01-2024 ALT [Catalytic activity/Vol] 10 U/L <35 [facility] Serum or plasma albumin ash urement (mass/volume)Ordered By: Karen Vu on 10-01-2024 Albumin [Mass/Vol] 3.8 g/dL 3.5-5.0 [facility] Serum or plasma albumin/glob ulin mass ratioOrdered By: Karen Vu on 10-01-2024 Albumin/Globulin [Mass ratio] 1.3 {ratio} 0.9-2.4 [facility] Serum or plasma alkaline belle sphatase measurementOrdered By: Karen Vu on 10-01-2024 ALP [Catalytic activity/Vol] 62 U/L 35-104 [facility] Serum or plasma calcium ash urement (mass/volume)Ordered By: Karen Vu on 10-01-2024 Calcium [Mass/Vol] 9.3 mg/dL 7.6-11.0 [facility] Serum or plasma urea nitroge n measurement (mass/volume)Ordered By: Karen Vu on 10-01-2024 Urea nitrogen [Mass/Vol] 5 mg/dL 4-19 [facility] Sodium levelOrdered By: Antwon Vu on 10-01-2024 Sodium [Moles/Vol] 136 mmol/L 133-145 [facility] Total proteinOrdered By: Evgeny Vu on 10-01-2024 Protein [Mass/Vol] 6.7 g/dL 5.9-8.4 [facility] Urine protein measurement (m ass/volume)Ordered By: Karen Vu on 10-01-2024 Protein (U) [Mass/Vol] 28.7 mg/dL High 0.0-12.0 [facility] Urine protein/creatinine mas s ratioOrdered By: Karen Vu on 10-01-2024 Protein/Creatinine (U) [Mass ratio] 188 mg/g CRE 0-200 [facility] White blood cell (WBC) count Ordered By: Karen Vu on 10-01-2024 WBC (Bld) [#/Vol] 6.7 10*3/uL 4.4-11.0 [facility] Emergency Department Summary on 09-29-2024 Emergency Department Summary [facility] Medical Records Department [address] [place] [address] Emergency Department Summary 09/29/24 MR#: [id number] Acct: [id number] Name: JEFF RUSHING Rep #: [id number] : 1995 29 From: Spenser Valero DO PCP: Care Physician,No Primary Status:DEP ER Location: ED HPI History of Present Illness Chief Complaint: Headache PFSH PFS Medical History Recurrent loss Trichomonal vaginitis Seasonal allergies Shingles Cyst of spleen Home Medications ???Medication ???Instructions ???Recorded ???Last Taken ???Type progesterone micronized 200 mg 400 mg (2 x 200 mg) vaginal ONCE 0 07/06/24 Unknown Rx capsule (Prometrium) #60 caps multivit-min no.71-iron fum 28 cap PO 07/16/24 09/29/24 History mg-folate no.1 1 mg-dha 300 mg capsule (PNV-Easton) metoclopramide HCl 5 mg tablet 5 mg PO Q8H PRN nausea and 5 Unknown Rx (Reglan) vomiting #21 tabs Allergy/AdvReac Type Severity Reaction Status Date / Time Iodinated Contrast Media Allergy Mild Hives Verified 09/29/24 22:03 Family History Grandmother Throat cancer, Onset Age: 68 Maternal Grandfather Lung cancer Maternal, smoker-onset age unknown Father Diabetes Hypertension Myocardial infarction Surgical History [place] teeth removed Social History adopted: No [...] physical activity do you participate in: none whitney/congregational: Jehovah'S Witness seatbelt use: always do you feel safe at home: Yes additional social history: Significant other - Franck EXAM Physical Exam Const Vital Signs: 09/29/24 21:46 09/29/24 23:54 Temperature 98 F 98 F Temperature Source Oral Pulse Rate 110 H 96 Respiratory Rate 16 23 H Blood Pressure 142/88 H 120/85 H Blood Pressure Mean 106 96 Pulse Ox 98 99 Oxygen Delivery Method Room Air [facility] MDM Narrative Medical decision making narrative: HISTORY OF PRESENT ILLNESS: Chief complaint: Headache 29-year-old female history of migraines presents with headache. Notes began This afternoon at 3 PM approximately 7 hours prior to arrival. Notes a pulsating sensation/visual disturbance but intermittent and has since resolved. States she has had migraines in the past with ocular phenomena. Notes this migraine is consistent with those however the ocular phenomena or different which concerned her. She also notes she is in her early second trimester of but less than 20-weeks OB (G4, P0) and that she called her OB and they were concerned that she may have gestational hypertension so wanted her evaluated. Denies recent illness. Denies neck stiffness or fever. No sick contacts. Patient denies active cancer, being bedridden for greater than 3 days, denies unilateral leg swelling, denies any varicose veins, denies any calf tenderness, denies tenderness along deep venous system. Denies major surgery within 12 weeks, recent paralysis, previous DVT. Patient denies sudden onset or thunderclap headache, denies maximal intensity within 1 minute, vomiting, neck pain, stiffness, changes in vision, fever, history malignancy, syncope, or seizures associated with headache. REVIEW OF SYSTEMS: Pertinent positives: Headache Pertinent negatives: As per HPI PHYSICAL EXAM: Nursing triage notes reviewed, Vital signs reviewed Constitutional: please see mdm HENT: MMM Eyes: Pupils equal round and reactive to light, Extraocular muscles intact Neck: No stridor, no JVD, full neck ROM Lungs: Clear to auscultation, No wheezing or rales. No increased work of breathing, no conversational dyspnea, no accessory muscle use, no nasal (more content not included)... Normal [facility] Urine Cultureon 09-03-2024 URC Below infection level. Mixed Gram Positive Organisms Van Count <1000 MIXC Mixed contaminants. Submit a new specimen if indicated. Normal [facility] Comment on above: Performed By: #### L 501.0900 #### [facility] [address] [place], [address] Laboratory - Chemistry and C hemistry - challengeOrdered By: Diana Soliman on 09-01-2024 Bilirubin Ql (U) Negative [facility] Glucose Ql (U) Negative [facility] Ketones Ql (U) Negative [facility] pH (U) 5.0 [pH] [facility] Specific gravity (U) [Rel density] 1.020 [facility] Urobilinogen (U) [Mass/Vol] 0.5593424 mg/dL [facility] Laboratory - Hematology and Cell countsOrdered By: Diana Soliman on 09-01-2024 Hemoglobin Ql (U) Negative [facility] Laboratory - Specimen inform ationOrdered By: Diana Soliman on 09-01-2024 Clarity (U) Clear [facility] Color (U) Yellow [facility] Laboratory - UrinalysisOrder ed By: Diana Soliman on 09-01-2024 Nitrite Ql (U) Negative [facility] Protein Ql (U) Negative [facility] No Panel InformationOrdered By: Diana Soliman on 09-01-2024 Urine Leukocytes Negatve [facility] Film Or Videotape Editor Office Visit Reporton 09-01-2024 Film Or Videotape Editor Office Visit Report [facility], [address] [place] [address] OFFICE VISIT Date of Service: 09/01/24 MR#: [id number] Acct: [id number] Name: JEFF RUSHING Rep #: [id number] : 1995 Provider: Dr. Diana Morton DO Age/Sex: 29/F Location: [facility] [place] Status: Signed Intake Vital Signs 07/27/24 11:04 08/27/24 13:02 09/01/24 15:46 09/01/24 15:49 Height 5 ft 8 in 5 ft 8 in 5 ft 8 in 5 ft 8 in Weight: 239 lb 2 oz BMI 36.3 BP 131/86 H Intake Visit Reasons: 12wk ob per JV Special Inspector Required: No Is patient in pain?: No Allergies Iodinated Contrast Media Allergy (Mild, Verified 09/01/24 15:46) Hives Medications ???Medication ???Instructions ???Recorded ???Confirmed ???Type progesterone micronized 200 mg 400 mg (2 x 200 mg) vaginal ONCE 0 07/06/24 09/01/24 Rx capsule (Prometrium) #60 caps multivit-min no.71-iron fum 28 cap PO 07/16/24 09/01/24 History mg-folate no.1 1 mg-dha 300 mg capsule (PNV-Easton) ondansetron 4 mg disintegrating 4 mg PO Q6H PRN nausea and 5 09/01/24 Rx tablet vomiting #30 tabs Last Menstrual Period: 05/29/24 Zika: Zika virus screening: Negative : No PFSH PFSH Medical History Recurrent loss Trichomonal vaginitis Seasonal allergies Shingles Cyst of spleen Surgical History [place] teeth removed Family History Grandmother Throat [...] physical activity do you participate in: none whitney/congregational: Jehovah'S Witness seatbelt use: always do you feel safe [...] ??-???-???- EGA Weight BP Urine Prot -???-???-???-???-?? ?-???-???-???-???-? ??-???-???- Glucose FHR FuHt Pres Dilation -???-???-???-???-?? ?-???-???-???-???-? ??-???-???- Effaced St Visit Note 07/27/24 -???-???-???-???-?? ?-???-??? (more content not included)... Normal [facility] Urine cultureOrdered By: Zayra Sheetserickson on 09-01-2024 Bacteria identified Cx Nom (U) Positive Abnormal [facility] Absolute lymphocyte countOrd ered By: Diana Sheetserickson on 08-27-2024 Lymphocytes Auto (Unsp spec) [#/Vol] 1.75 10*3/uL 0.83-4.51 [facility] Absolute neutrophil countOrd ered By: Diana Sheetserickson on 08-27-2024 Neutrophils (Bld) [#/Vol] 4.8 10*3/uL 2.0-7.7 [facility] Automated lymphocyte count a s percentage of total leukocytesOrdered By: Diana Jourdan on 08-27-2024 Lymphocytes/100 WBC Auto (Unsp spec) 25.0 % 19-41 [facility] Basophil percentageOrdered B y: Diana Sheetserickson on 08-27-2024 Basophils/100 WBC (Bld) 0.3 % 0-[address] [facility] CBC W/Diff, Automatedon - Absolute Lymph 1.75 X10 3/uL Normal 0.83-4.51 [facility] Comment on above: Performed By: #### L 501.0900, L100.0100, L500.4050 #### [facility] [address] [place], [address] Absolute Neut 4.8 X10 3/uL Normal 2.0-7.7 [facility] Comment on above: Performed By: #### L 501.0900, L100.0100, L500.4050 #### [facility] [address] [place], [address] Basophils/100 WBC (Bld) 0.3 % Normal 0-[address] [facility] Comment on above: Performed By: #### L 501.0900, L100.0100, L500.4050 #### [facility] [address] [place], [address] Eosinophils/100 WBC (Bld) 0.6 % Normal 0-5 [facility] Comment on above: Performed By: #### L 501.0900, L100.0100, L500.4050 #### [facility] [address] [place], [address] Erythrocyte distribution width (RBC) [Ratio] 12.1 % Normal 11.6-14.6 [facility] Comment on above: Performed By: #### L 501.0900, L100.0100, L500.4050 #### [facility] [address] [place], [address] Hematocrit (Bld) [Volume fraction] 41.7 % Normal 37-47 [facility] Comment on above: Performed By: #### L 501.0900, L100.0100, L500.4050 #### [facility] [address] [place], [address] Hemoglobin (Bld) [Mass/Vol] 14.2 g/dL Normal 12.0-15.0 [facility] Comment on above: Performed By: #### L 501.0900, L100.0100, L500.4050 #### [facility] [address] [place], [address] IG% 0.300 Normal 0.0-0.9 [facility] Comment on above: Result Comment: IG% - Immature Granulocytes (promyelocytes, myelocytes and metamyelocytes) > 1% indicates that a LEFT SHIFT is Present. Performed By: #### L 501.0900, L100.0100, L500.4050 #### [facility] [address] [place], [address] Lymphocytes/100 WBC (Bld) 25.0 % Normal 19-41 [facility] Comment on above: Performed By: #### L 501.0900, L100.0100, L500.4050 #### [facility] [address] [place], [address] MCH (RBC) [Entitic mass] 29.0 pg Normal 27.0-32.0 [facility] Comment on above: Performed By: #### L 501.0900, L100.0100, L500.4050 #### [facility] [address] [place], [address] MCHC (RBC) [Mass/Vol] 34.1 g/dL Normal 32-36 [facility] Comment on above: Performed By: #### L 501.0900, L100.0100, L500.4050 #### [facility] [address] [place], [address] MCV (RBC) [Entitic vol] 85.1 fL Normal 81-99 [facility] Comment on above: Performed By: #### L 501.0900, L100.0100, L500.4050 #### [facility] [address] [place], [address] Monocytes/100 WBC (Bld) 5.1 % Normal 0-10 [facility] Comment on above: Performed By: #### L 501.0900, L100.0100, L500.4050 #### [facility] [address] [place], [address] Neutrophils/100 WBC (Bld) 68.7 % Normal 47-70 [facility] Comment on above: Performed By: #### L 501.0900, L100.0100, L500.4050 #### [facility] [address] [place], [address] Nucleated RBC (Bld) [#/Vol] 0 10*3/uL Normal 0-5 [facility] Comment on above: Performed By: #### L 501.0900, L100.0100, L500.4050 #### [facility] [address] [place], [address] Platelet mean volume (Bld) [Entitic vol] 12.4 fL High 6.2-12.0 [facility] Comment on above: Performed By: #### L 501.0900, L100.0100, L500.4050 #### [facility] [address] [place], [address] Platelets (Bld) [#/Vol] 184 10*3/uL Normal 150-450 [facility] Comment on above: Performed By: #### L 501.0900, L100.0100, L500.4050 #### [facility] [address] [place], [address] RBC (Bld) [#/Vol] 4.90 10*6/uL Normal 4.2-5.4 [facility] Comment on above: Performed By: #### L 501.0900, L100.0100, L500.4050 #### [facility] [address] [place], [address] RDW SD 36.9 fl Normal 35.1-43.9 [facility] Comment on above: Performed By: #### L 501.0900, L100.0100, L500.4050 #### [facility] [address] [place], [address] WBC (Bld) [#/Vol] 7.0 10*3/uL Normal 4.4-11.0 [facility] Comment on above: Performed By: #### L 501.0900, L100.0100, L500.4050 #### [facility] [address] [place], [address] Eosinophil percentageOrdered By: Diana Jourdan on 08-27-2024 Eosinophils/100 WBC (Bld) 0.6 % 0-5 [facility] Erythrocyte distribution wid th ratioOrdered By: Diana Jourdan on 08-27-2024 Erythrocyte distribution width (RBC) [Ratio] 12.1 % 11.6-14.6 [facility] Erythrocyte distribution wid th standard deviationOrdered By: Diana Jourdan on 08-27-2024 Erythrocyte distribution width (RBC) [Ratio] 36.9 fl 35.1-43.9 [facility] HIVon 08-27-2024 HIV Non-Reactive Normal Nonreactive [facility] Comment on above: Result Comment: Non- Reactive Reactive Repeatedly reactive samples must be confirmed according to CDC recommended confirmatory algorithms. The subresults for either HIVAG or AHIV can be used as an aid in the selection of the confirmation algorithm for reactive samples. Send out specimens with Reactive results to [facility] for confirmation. Order the HIV antibody detection and differentiation: lc#[id number] Performed By: #### L 501.0900, L100.0100, L500.4050 #### [facility] [address] [place], [place], [address] Hematocrit Auto (Bld) [Volum e fraction]Ordered By: Diana Soliman on 08-27-2024 Hematocrit (Bld) [Volume fraction] 41.7 % 37-47 [facility] Hemoglobin A1con 08-27-2024 HbA1c (Bld) [Mass fraction] 5.0 % Normal <=5.6 [facility] Comment on above: Result Comment: Norm al < 5.7 % Prediabetic 5.7 - 6.4 % Diabetic >or= 6.5 % Please note range changes. Performed By: #### L 501.0900, L100.0100, L500.4050 #### [facility] [address] [place], [address] Hemoglobin A1c percentageOrd ered By: Diana Soliman on 08-27-2024 HbA1c (Bld) [Mass fraction] 5.0 % <5.7 [facility] Comment on above: Normal < 5.7 % Predi abetic 5.7 - 6.4 % Diabetic >or= 6.5 % Please note range changes. Hemoglobin measurementOrdere d By: Diana Jourdan on 08-27-2024 Hemoglobin (Bld) [Mass/Vol] 14.2 g/dL 12.0-15.0 [facility] Hepatitis C Antibodyon 08-27 Hepatitis C Ab Non-Reactive Normal Nonreactive [facility] Comment on above: Result Comment: Reac tive: Presumptive evidence of antibodies to HCV. Follow CDC recommendations for supplemental testing. Non-Reactive: Antibodies to HCV were not detected; does not exclude the possibility of exposure to HCV Reactive Results are presumptive evidence of antibodies to HCV. Follow CDC recommendations for supplemental testing. Order confirmation testing: HCV Quant by PCR testing - HCVPCR #[id number] Non Reactive: < 0.8 Equivocal: >/= 0.8 to < 1.0 Reactive: >/= 1.0 The [facility] requires that a reactive/equivocal HCV antibody result be sent out for confirmation. HCV Quant by PCR testing. Performed By: #### L 501.0900, L100.0100, L500.4050 #### [facility] [address] [place], [address] Immature granulocytes/100 WB C Auto (Bld)Ordered By: Diana Soliman on 08-27-2024 Immature granulocytes/100 WBC (Bld) 0.300 % 0.0-0.9 [facility] Comment on above: IG% - Immature Granu locytes (promyelocytes, myelocytes and metamyelocytes) > 1% indicates that a LEFT SHIFT is Present. [id number] 08-27-2024 HEP B Surf Ag Non-Reactive Normal Nonreactive [facility] Comment on above: Result Comment: Reac tive: Presumptive evidence of HBV. Repeatedly reactive samples must be confirmed using a neutralization test ([employer] HBsAg Confirmatory Test) Non-Reactive: HBsAg not detected; does not exclude the possibility of exposure to HBV Performed By: #### L 501.0900, L100.0100, L500.4050 #### [facility] [address] [place], [address] L509.4006on 08-27-2024 Rubella IgG REAC Normal Nonreactive [facility] Comment on above: Result Comment: Anti body Result: Interpretation Non-Reactive: Non-Immune Reactive: Immune The following results were obtained with the [employer] Rubella IgG assay. Results from assays of other manufacturers cannot be used interchangeably. Performed By: #### L 501.0900, L100.0100, L500.4050 #### [facility] [address] [place], [id number] Laboratory - Microbiology an d Antimicrobial susceptibilityOrdered By: Diana Soliman on 08-27-2024 HBV surface Ag Ql (S) Non-Reactive Nonreactive [facility] Comment on above: Reactive: Presumptiv e evidence of HBV. Repeatedly reactive samples must be confirmed using a neutralization test ([employer] HBsAg Confirmatory Test)Non-Reactive: HBsAg not detected; does not exclude the possibility of exposure to HBV MCV (mean corpuscular volume ) determinationOrdered By: Diana Soliman on 08-27-2024 MCV (RBC) [Entitic vol] 85.1 fL 81-99 [facility] Mean corpuscular hemoglobin (MCH) determinationOrdered By: Diana Soliman on 08-27-2024 MCH (RBC) [Entitic mass] 29.0 pg 27.0-32.0 [facility] Mean corpuscular hemoglobin concentration (MCHC) determinationOrdered By: Diana Soliman on 08-27-2024 MCHC (RBC) [Mass/Vol] 34.1 g/dL 32-36 [facility] Mean platelet volume determi nationOrdered By: Diana Soliman on 08-27-2024 Platelet mean volume (Bld) [Entitic vol] 12.4 fL High 6.2-12.0 [facility] Monocyte percentageOrdered B y: Diana Soliman on 08-27-2024 Monocytes/100 WBC (Bld) 5.1 % 0-[address] [facility] NATERAon 08-27-2024 NATURA SEE SCANNED REPORT Normal [facility] Comment on above: Performed By: #### L 501.0900, L100.0100, L500.4050 #### [facility] Laboratory [address] [place], [address] Neutrophil percentageOrdered By: Diana Soliman on 08-27-2024 Neutrophils/100 WBC (Bld) 68.7 % 47-70 [facility] No Panel InformationOrdered By: Diana Soliman on 08-27-2024 HIV (1&2) Antibody Non-Reactive Nonreactive [facility] Comment on above: Non-ReactiveReactive Repeatedly reactive samples must be confirmed according to CDC recommended confirmatory algorithms. The subresults for either HIVAG or AHIV can be used as an aid in the selection of the confirmation algorithm for reactive samples.Send out specimens with Reactive results to [facility] for confirmation.Order the HIV antibody detection and differentiation: #[id number] Nucleated red blood cell per centageOrdered By: Diana Soliman on 08-27-2024 Nucleated RBC/100 WBC (Bld) [Ratio] 0 % 0-5 [facility] Film Or Videotape Editor Office Visit Reporton 08-27-2024 Film Or Videotape Editor Office Visit Report [facility]'s [address], [address] [place] [address] OFFICE VISIT Date of Service: 08/27/24 MR#: [id number] Acct: [id number] Name: JEFF RUSHING Rep #: [id number] : 1995 Provider: Dr. Diana Morton DO Age/Sex: 29/F Location: [facility] Status: Signed Intake Vital Signs 10/17/23 10:44 08/16/24 15:46 08/27/24 13:02 Height 5 ft 8 in 5 ft 8 in 5 ft 8 in Weight: 236 lb 4 oz BMI 35.9 BP 131/87 H Intake Visit Reasons: 11wk ob per JV Special Inspector Required: No Is patient in pain?: No Allergies Iodinated Contrast Media Allergy (Mild, Verified 08/27/24 13:14) Hives Medications ???Medication ???Instructions ???Recorded ???Confirmed ???Type progesterone micronized 200 mg 400 mg (2 x 200 mg) vaginal ONCE 0 4/29/25 06/09/25 Rx capsule (Prometrium) #60 caps aspirin 81 mg tablet,delayed 81 mg PO QDAY 07/16/24 08/16/24 Hi story release (Adult Low Dose Aspirin) multivit-min no.71-iron fum 28 cap PO 07/16/24 08/16/24 History mg-folate no.1 1 mg-dha 300 mg capsule (PNV-Easton) cephalexin 500 mg capsule 500 mg PO Q12H 5 days #10 caps 08/16/24 Rx ondansetron 4 mg disintegrating 4 mg PO Q6H PRN nausea and 5 08/16/24 Rx tablet vomiting #30 tabs Last Menstrual Period: 05/29/24 Zika: Zika virus screening: Negative : No PFSH PFSH Medical History Recurrent loss Trichomonal vaginitis Seasonal allergies Shingles Cyst of spleen Surgical History [place] teeth removed Family History Grandmother Throat [...] physical activity do you participate in: none whitney/congregational: Jehovah'S Witness seatbelt use: always do you feel safe [...] chemical 4 spontaneous 07/16/212021 5 spontaneous HPI 11wk ob per JV Details: JEFF RUSHING is a 29 year old who presents for routine OB visit. OB Visit JYOTHI Calculator Estimated Delivery Date Method Current WG Current Estimate 03/13/25 Ultrasound #1 12w 0d Other Estimates 03/05/25 LMP (Certain) 13w 1d 03/17/25 Ultrasound #2 11w 3d Expected Delivery Route/Plan Labor Preferences- CB/BF classes: [...] ??-???-???- EGA Weight BP Urine Prot -???-???-???-???-?? ?-???-???-???-???-? ??-???- (more content not included)... Normal [facility] Platelet countOrdered By: Adonis Soliman on 08-27-2024 Platelets (Bld) [#/Vol] 184 10*3/uL 150-450 [facility] RBC Auto (Bld) [#/Vol]Ordere d By: Dianakassandra Soliman on 08-27-2024 RBC (Bld) [#/Vol] 4.90 10*6/uL 4.2-5.4 [facility] Syphilis Antibodieson 2024 Syphilis Abs Non-Reactive Normal Nonreactive [facility] Comment on above: Performed By: #### L 501.0900, L100.0100, L500.4050 #### [facility] Laboratory [address] [place], [address] Type AND Screenon 08-27-2024 Ab SCREEN GEL Negative Normal [facility] Comment on above: Order Comment: PN Performed By: #### L 501.0900, L100.0100, L500.4050 #### [facility] Laboratory [address] [place], [address] White blood cell (WBC) count Ordered By: Diana Soliman on 08-27-2024 WBC (Bld) [#/Vol] 7.0 10*3/uL 4.4-11.0 [facility] Laboratory - Chemistry and C hemistry - challengeOrdered By: Aaliyah Borrego on 08-16-2024 Glucose Ql (U) Negative [facility] Laboratory - UrinalysisOrder ed By: Aaliyah Borrego on 08-16-2024 Protein Ql (U) Negative [facility] Film Or Videotape Editor Office Visit Reporton 08-16-2024 Film Or Videotape Editor Office Visit Report [facility]'s [address], [address] [place] [address] OFFICE VISIT Date of Service: 08/16/24 MR#: [id number] Acct: [id number] Name: YVANEUNJEFF WISEN Rep #: [id number] : 1995 Provider: SALLIE Chamberlain ams Age/Sex: 29/F Location: [facility] Status: Signed Intake Vital Signs 07/27/24 11:04 08/13/24 15:56 08/16/24 15:43 08/16/24 15:46 Height 5 ft 8 in 5 ft 8 in 5 ft 8 in 5 ft 8 in Weight: 238 lb 8 oz BMI 36.2 BP 145/87 H 130/93 H Intake Visit Reasons: 10wk ob per JV Special Inspector Required: No Is patient in pain?: No [...] mg-folate no.1 1 mg-dha 300 mg capsule (PNV-Easton) cephalexin 500 mg capsule 500 mg PO Q12H 5 days #10 caps 08/16/24 Rx ondansetron 4 mg disintegrating 4 mg PO Q6H PRN nausea and 5 08/16/24 Rx tablet vomiting #30 tabs Last Menstrual Period: 05/29/24 Zika: Zika virus screening: Negative : No PFSH PFSH Medical History Recurrent loss Trichomonal vaginitis Seasonal allergies Shingles Cyst of spleen Surgical History [place] teeth removed Family History Grandmother Throat [...] physical activity do you participate in: none whitney/congregational: Jehovah'S Witness seatbelt use: always do you feel safe at home: Yes additional social history: Significant other - Franck History 3 Elective abortions Hx Para 0 Spontaneous abortions 2 Hx # Term Pregnancies Ectopic pregnancies Hx # Pregnancies Multiple births # of living children 0 Past Pregnancies Del. Date Name GA/Weeks Outcome Route Bth Weight Gen Labor Lgth Anesthesia Del [facility] Provider FOB 06/10/20 chemical 4 spontaneous 07/16/212021 [...] -???-???-???-???-?? ? (more content not included)... Normal [facility] Laboratory - Chemistry and C hemistry - challengeOrdered By: Felicia Kaur on 08-13-2024 Glucose Ql (U) Negative [facility] Laboratory - UrinalysisOrder ed By: Felicia Kaur on 08-13-2024 Protein Ql (U) Negative [facility] Film Or Videotape Editor Office Visit Reporton 08-13-2024 Film Or Videotape Editor Office Visit Report [facility]'s [address], [address] [place] [address] OFFICE VISIT Date of Service: 08/13/24 MR#: [id number] Acct: [id number] Name: JEFF RUSHING Rep #: [id number] : 1995 Provider: SALLIE hull Age/Sex: 29/F Location: [facility] Status: Signed Intake Vital Signs 07/27/24 10:15 07/27/24 11:03 08/09/24 14:00 08/13/24 15:55 08/13/24 15:56 Height 5 ft 8 in 5 ft 8 in 5 ft 8 in 5 ft 8 in 5 ft 8 in Weight: 234 lb 2 oz BMI 35.6 BP 130/82 H Intake Visit Reasons: 9wk ob per JV Special Inspector Required: No Is patient in pain?: No [...] mg-folate no.1 1 mg-dha 300 mg capsule (PNV-Easton) cephalexin 500 mg capsule 500 mg PO Q12H 5 days #10 caps 08/13/24 Rx ondansetron 4 mg disintegrating 4 mg PO Q6H PRN nausea and 5 08/13/24 Rx tablet vomiting #30 tabs Last Menstrual Period: 05/29/24 Zika: Zika virus screening: Negative : No PFSH PFSH Medical History Recurrent loss Trichomonal vaginitis Seasonal allergies Shingles Cyst of spleen Surgical History [place] teeth removed Family History Grandmother Throat [...] physical activity do you participate in: none whitney/congregational: Jehovah'S Witness seatbelt use: always do you feel safe at home: Yes additional social history: Significant other - Franck History 3 Elective abortions Hx Para 0 Spontaneous abortions 2 Hx # Term Pregnancies Ectopic pregnancies Hx # Pregnancies Multiple births # of living children 0 Past Pregnancies Del. Date Name GA/Weeks Outcome Route Bth Weight [facility]/10[facility]20 chemical 4 spontaneous 07/16/212021 [...] Urine Pro (more content not included)... Normal [facility] Film Or Videotape Editor Office Visit Reporton 08-09-2024 Film Or Videotape Editor Office Visit Report [facility] [address], [address] [place] [address] OFFICE VISIT Date of Service: 08/09/24 MR#: [id number] Acct: [id number] Name: JEFF RUSHING Rep #: [id number] : 1995 Provider: SALLIE Chamberlain ams Age/Sex: 29/F Location: [facility] Status: Signed Intake Vital Signs 08/03/24 14:54 08/09/24 14:00 08/09/24 14:19 Height 5 ft 8 in 5 ft 8 in Weight: 237 lb 238 lb 8 oz BMI 36.0 36.2 BP 139/91 H 140/98 H 135/88 H Intake Visit Reasons: bleeding, heartbeat check per KW Chief Complaint: Bleeding, Heartbeat check Special Inspector Required: No Is patient in pain?: No [...] mg-folate no.1 1 mg-dha 300 mg capsule (PNV-Easton) cephalexin 500 mg capsule 500 mg PO Q12H 5 days #10 caps 08/09/24 Rx ondansetron 4 mg disintegrating 4 mg PO Q6H PRN nausea and 5 08/09/24 Rx tablet vomiting #30 tabs Last Menstrual Period: 05/29/24 : No PFSH PFSH Medical History Recurrent loss Trichomonal vaginitis Seasonal allergies Shingles Cyst of spleen Surgical History [place] teeth removed Family History Grandmother Throat [...] physical activity do you participate in: none whitney/congregational: Jehovah'S Witness seatbelt use: always do you feel safe [...] Prot -???-?? (more content not included)... Normal [facility] Amphetamine detection with 1 000 ng/mL as cutoffOrdered By: Diana Soliman on 08-03-2024 Amphetamines Screen method >1000 ng/mL Ql (U) Negative < 200 ng/mL [facility] Laboratory - Chemistry and C hemistry - challengeOrdered By: Aaliyah Borrego on 08-03-2024 Glucose Ql (U) Negative [facility] Laboratory - UrinalysisOrder ed By: Aaliyah Borrego on 08-03-2024 Protein Ql (U) Negative [facility] No Panel InformationOrdered By: Diana Soliman on 08-03-2024 Urine Buprenorphine Qualitative Negative < 200 ng/mL [facility] Urine Oxycodone Screen Negative < 100 ng/mL [facility] Film Or Videotape Editor Office Visit Reporton 08-03-2024 Film Or Videotape Editor Office Visit Report [facility]'s [address], [address] [place] [address] OFFICE VISIT Date of Service: 08/03/24 MR#: [id number] Acct: [id number] Name: JEFF RUSHING Rep #: [id number] : 1995 Provider: SALLIE Chamberlain ams Age/Sex: 29/F Location: [facility] Status: Signed Intake Vital Signs 07/27/24 10:15 07/27/24 11:04 08/03/24 14:54 Height 5 ft 8 in 5 ft 8 in 5 ft 8 in Weight: 237 lb BMI 36.0 BP 139/91 H Intake Visit Reasons: 8wk ob *rescan per JV Chief Complaint: 8wk OB Special Inspector Required: No Is patient in pain?: No [...] mg-folate no.1 1 mg-dha 300 mg capsule (PNV-Easton) cephalexin 500 mg capsule 500 mg PO Q12H 5 days #10 caps 08/03/24 Rx ondansetron 4 mg disintegrating 4 mg PO Q6H PRN nausea and 5 08/03/24 Rx tablet vomiting #30 tabs Last Menstrual Period: 05/29/24 : No Have you fallen in the past year?: No PFSH PFSH Medical History Recurrent loss Trichomonal vaginitis Seasonal allergies Shingles Cyst of spleen Surgical History [place] teeth removed Family History Grandmother Throat [...] physical activity do you participate in: none whitney/congregational: Jehovah'S Witness seatbelt use: always do you feel safe [...] -???-???-???-???-?? ?-???-???-???-? (more content not included)... Normal [facility] Quantitative urine opiates m easurementOrdered By: Diana Soliman on 08-03-2024 Opiates Ql (U) Negative < 300 ng/mL [facility] Screening urine fentanyl patti surementOrdered By: Diana Soliman on 08-03-2024 fentaNYL Screen Ql (U) Negative [facility] Urine Drug Screen (VISTA)on 08-03-2024 AMPHETAMINES Negative Normal <1000 ng/mL [facility] Comment on above: Order Comment: UNK Performed By: #### L 501.0900, L100.0100, L500.4050 #### [facility] Laboratory [address] [place], [address] BARBITIURATES Negative Normal < 200 ng/mL [facility] Comment on above: Order Comment: UNK Performed By: #### L 501.0900, L100.0100, L500.4050 #### [facility] Laboratory [address] [place], [address] BENZODIAZIPINE Negative Normal < 200 ng/mL [facility] Comment on above: Order Comment: UNK Performed By: #### L 501.0900, L100.0100, L500.4050 #### [facility] Laboratory [address] [place], [address] BUP Ur Drug Scr Negative Normal < 200 ng/mL [facility] Comment on above: Order Comment: UNK Performed By: #### L 501.0900, L100.0100, L500.4050 #### [facility] Laboratory [address] [place], [address] COCAINE Negative Normal < 300 ng/mL [facility] Comment on above: Order Comment: UNK Performed By: #### L 501.0900, L100.0100, L500.4050 #### [facility] Laboratory [address] [place], [address] Fentanyl Negative Normal [facility] Comment on above: Order Comment: UNK Performed By: #### L 501.0900, L100.0100, L500.4050 #### [facility] Laboratory [address] [place], [address] METHADONE Negative Normal < 300 ng/mL [facility] Comment on above: Order Comment: UNK Performed By: #### L 501.0900, L100.0100, L500.4050 #### [facility] Laboratory [address] [place], [address] OPIATES Negative Normal < 300 ng/mL [facility] Comment on above: Order Comment: UNK Performed By: #### L 501.0900, L100.0100, L500.4050 #### [facility] Laboratory [address] [place], [address] OXYCODONE Negative Normal < 100 ng/mL [facility] Comment on above: Order Comment: UNK Performed By: #### L 501.0900, L100.0100, L500.4050 #### [facility] Laboratory [address] [place], [address] PCP Negative Normal < 25 ng/mL [facility] Comment on above: Order Comment: UNK Performed By: #### L 501.0900, L100.0100, L500.4050 #### [facility] Laboratory [address] [place], [address] THC Negative Normal < 50 ng/mL [facility] Comment on above: Order Comment: UNK Performed By: #### L 501.0900, L100.0100, L500.4050 #### [facility] [address] [place], [address] Urine benzodiazepine levelOr dered By: Diana Soliman on 08-03-2024 Benzodiazepines Ql (U) Negative < 200 ng/mL [facility] Urine cocaine levelOrdered B y: Diana Soliman on 08-03-2024 Cocaine Ql (U) Negative < 300 ng/mL [facility] Urine ifoxa-9-fcoveeluufnulj abinol (THC) measurementOrdered By: Diana Soliman on 08-03-2024 Cannabinoids Screen Ql (U) Negative < 50 ng/mL [facility] Urine phencyclidine (PCP) de tectionOrdered By: Diana Soliman on 08-03-2024 Phencyclidine Ql (U) Negative < 25 ng/mL [facility] Genital Culture Comprehensiv key 07-29-2024 VAC Reason for Exam: vaginal discharge Normal vaginal job isolated. No yeast, Gardnerella, Neisseria or beta-hemolytic Streptococcus isolated. Normal [facility] Comment on above: Performed By: #### L 501.0900, L100.0100, L500.4050 #### [facility] Laboratory [address] [place], [address] Chlamydia/GC PETER aptimaon CHLAMY,NUC ACID Negative Normal Negative [facility] Comment on above: Performed By: #### L 501.0900, L100.0100, L500.4050 #### [facility] Laboratory [address] [place], [address] GC BY NUC ACID Negative Normal Negative [facility] Comment on above: Result Comment: Perf ormed at: =G - [facility] [address] [id number] [employer] Helper: Jada Mayberry MD, Phone: [phone] Performed By: #### L 501.0900, L100.0100, L500.4050 #### [facility] [address] [place], [address] Urine Cultureon 07-28-2024 URC Mixed Gram Positive Organisms Van Count 11,000-25,000 MIXC Mixed contaminants. Submit a new specimen if indicated. Normal [facility] Comment on above: Performed By: #### L 501.0900, L100.0100, L500.4050 #### [facility] [address] [place], [address] Chlamydia trachomatis rRNA d etection by probe and target amplification methodOrdered By: Diana Soliman on 07-27-2024 C. trachomatis rRNA PETER+probe Ql (Unsp spec) Negative Negative [facility] Genital cultureOrdered By: María Soliman on 07-27-2024 Source specific culture Neisseria or beta-hemolytic Streptococcus isolated. [facility] Gram Stainon 07-27-2024 GS Reason for Exam: vaginal discharge Gram Stain 4+ Gram positive rods 1+ Gram variable ximena No Gram negative diplococci Score =1 Interpretation: 0-3 Normal, 4-6 Intermediate, 7-10 Positive BV Normal [facility] Comment on above: Performed By: #### L 501.0900, L100.0100, L500.4050 #### [facility] [address] [place], [address] Gram stainOrdered By: Daniel Soliman on 07-27-2024 Microscopic observation Gram stain Nom (Unsp spec) [facility] Neisseria gonorrhoeae nuclei c acid detection by amplified probe techniqueOrdered By: Diana Soliman on 07-27-2024 N. gonorrhoeae DNA PETER+probe Ql (Unsp spec) Negative Negative [facility] Comment on above: Performed at: =[address] [id number] Director: Jada Mayberry MD, Phone: [phone] Film Or Videotape Editor Office Visit Reporton 07-27-2024 Film Or Videotape Editor Office Visit Report [facility] [address], [address] [place] [address] OFFICE VISIT Date of Service: 07/27/24 MR#: [id number] Acct: [id number] Name: JEFF RUSHING Rep #: [id number] : 1995 Provider: Dr. Diana Morton, Age/Sex: 29/F Location: [facility] Status: Signed Intake Vital Signs 10/17/23 10:44 07/16/24 14:24 07/25/24 11:13 07/27/24 10:15 07/27/24 10:15 Height 5 ft 8 in 5 ft 8 in 5 ft 8 in 5 ft 8 in 5 ft 8 in Weight: 234 lb 2 oz BMI 35.6 BP 138/88 H Intake Visit Reasons: NOB: LMP 05/29/24, JYOTHI 03/05/25 Special Inspector Required: No Is patient in pain?: No [...] mg-folate no.1 1 mg-dha 300 mg capsule (PNV-Easton) cephalexin 500 mg capsule 500 mg PO Q12H 5 days #10 caps 07/27/24 Rx ondansetron 4 mg disintegrating 4 mg PO Q6H PRN nausea and 5 07/27/24 Rx tablet vomiting #30 tabs Last Menstrual Period: 05/29/24 Zika: Zika virus screening: Negative : No PFSH PFSH Medical History Recurrent loss Trichomonal vaginitis Seasonal allergies Shingles Cyst of spleen Surgical History [place] teeth removed Family History Grandmother Throat [...] physical activity do you participate in: none whitney/congregational: Jehovah'S Witness seatbelt use: always do you feel safe [...] Date -??? (more content not included)... Normal [facility] Absolute lymphocyte countOrd ered By: Margarito Huston on 07-25-2024 Lymphocytes Auto (Unsp spec) [#/Vol] 2.34 10*3/uL 0.83-4.51 [facility] Absolute neutrophil countOrd ered By: Margarito Huston on 07-25-2024 Neutrophils (Bld) [#/Vol] 3.9 10*3/uL 2.0-7.7 [facility] Anion gap in Serum or Plasma Ordered By: Margarito Huston on 07-25-2024 Anion gap [Moles/Vol] 12 mmol/L 5-15 [facility] Automated lymphocyte count a s percentage of total leukocytesOrdered By: Margarito Huston on 07-25-2024 Lymphocytes/100 WBC Auto (Unsp spec) 35.0 % 19-41 [facility] [id number] 07-25-2024 ABO and Rh group Nom (Bld) Blood group O Rh(D) positive Normal [facility] Comment on above: Performed By: #### B 882-1, L100.0100, L501.2450, L700.6800, L500.4050 ####[facility] [address] [place], [place], [id number] BUN/creatinine ratioOrdered By: Margarito Huston on 07-25-2024 Urea nitrogen/Creatinine [Mass ratio] 12.3 mg/mg 10-20 [facility] Basophil percentageOrdered B y: Margarito Huston on 07-25-2024 Basophils/100 WBC (Bld) 0.3 % 0-[address] [facility] Bilirubin Test strip Ql (U)O rdered By: Margarito Huston on 07-25-2024 Bilirubin Ql (U) Negative Negative [facility] Bilirubin, totalOrdered By: Margarito Huston on 07-25-2024 Bilirubin [Mass/Vol] 0.52 mg/dL 0.00-1.30 [facility] CBC W/Diff, Automatedon 07-08 Absolute Lymph 2.34 X10 3/uL Normal 0.83-4.51 [facility] Comment on above: Performed By: #### B 882-1, L100.0100, L501.2450, L700.6800, L500.4050 #### [facility] Laboratory [address] [place], [address] Absolute Neut 3.9 X10 3/uL Normal 2.0-7.7 [facility] Comment on above: Performed By: #### Franci 882-1, L100.0100, L501.2450, L700.6800, L500.4050 #### [facility] Laboratory [address] [place], [address] Basophils/100 WBC (Bld) 0.3 % Normal 0-[address] [facility] Comment on above: Performed By: #### Franci 882-1, L100.0100, L501.2450, L700.6800, L500.4050 #### [facility] [address] [place], [address] Eosinophils/100 WBC (Bld) 0.6 % Normal 0-5 [facility] Comment on above: Performed By: #### Franci 882-1, L100.0100, L501.2450, L700.6800, L500.4050 #### [facility] [address] [place], [address] Erythrocyte distribution width (RBC) [Ratio] 12.2 % Normal 11.6-14.6 [facility] Comment on above: Performed By: ###Yury Koroma 882-1, L100.0100, L501.2450, L700.6800, L500.4050 #### [facility] [address] [place], [address] Hematocrit (Bld) [Volume fraction] 42.8 % Normal 37-47 [facility] Comment on above: Performed By: #### Franci 882-1, L100.0100, L501.2450, L700.6800, L500.4050 #### [facility] [address] [place], [address] Hemoglobin (Bld) [Mass/Vol] 14.9 g/dL Normal 12.0-15.0 [facility] [facility] Comment on above: Performed By: #### Franci 882-1, L100.0100, L501.2450, L700.6800, L500.4050 #### [facility] [address] [place], [address] IG% 0.300 Normal 0.0-0.9 [facility] Comment on above: Result Comment: IG% - Immature Granulocytes (promyelocytes, myelocytes and metamyelocytes) > 1% indicates that a LEFT SHIFT is Present. Performed By: ###Yury Koroma 882-1, L100.0100, L501.2450, L700.6800, L500.4050 #### [facility] [address] [place], [address] Lymphocytes/100 WBC (Bld) 35.0 % Normal 19-41 [facility] Comment on above: Performed By: ###Yury Koroma 882-1, L100.0100, L501.2450, L700.6800, L500.4050 #### [facility] [address] [place], [address] MCH (RBC) [Entitic mass] 29.3 pg Normal 27.0-32.0 [facility] Comment on above: Performed By: ##Tamra Koroma 882-1, L100.0100, L501.2450, L700.6800, L500.4050 #### [facility] [address] [place], [address] MCHC (RBC) [Mass/Vol] 34.8 g/dL Normal 32-36 [facility] Comment on above: Performed By: ###Yury Koroma 882-1, L100.0100, L501.2450, L700.6800, L500.4050 #### [facility] [address] [place], [address] MCV (RBC) [Entitic vol] 84.1 fL Normal 81-[address] [facility] Comment on above: Performed By: ##Tamra Koroma 882-1, L100.0100, L501.2450, L700.6800, L500.4050 #### [facility] [address] [place], [address] Monocytes/100 WBC (Bld) 5.1 % Normal 0-[address] [facility] Comment on above: Performed By: #### Franci 882-1, L100.0100, L501.2450, L700.6800, L500.4050 #### [facility] [address] [place], [address] Neutrophils/100 WBC (Bld) 58.7 % Normal 47-70 [facility] Comment on above: Performed By: #### Franci 882-1, L100.0100, L501.2450, L700.6800, L500.4050 #### [facility] [address] [place], [address] Nucleated RBC (Bld) [#/Vol] 0 10*3/uL Normal 0-5 [facility] Comment on above: Performed By: #### Franci 882-1, L100.0100, L501.2450, L700.6800, L500.4050 #### [facility] [address] [place], [address] Platelet mean volume (Bld) [Entitic vol] 11.9 fL Normal 6.2-12.0 [facility] Comment on above: Performed By: #### Franci 882-1, L100.0100, L501.2450, L700.6800, L500.4050 #### [facility] [address] [place], [address] Platelets (Bld) [#/Vol] 203 10*3/uL Normal 150-450 [facility] Comment on above: Performed By: #### Franci 882-1, L100.0100, L501.2450, L700.6800, L500.4050 #### [facility] [address] [place], [address] RBC (Bld) [#/Vol] 5.09 10*6/uL Normal 4.2-5.4 [facility] Comment on above: Performed By: #### Franci 882-1, L100.0100, L501.2450, L700.6800, L500.4050 #### [facility] [address] [place], [address] RDW SD 36.9 fl Normal 35.1-43.9 [facility] Comment on above: Performed By: #### Franci 882-1, L100.0100, L501.2450, L700.6800, L500.4050 #### [facility] [address] [place], [address] WBC (Bld) [#/Vol] 6.7 10*3/uL Normal 4.4-11.0 [facility] Comment on above: Performed By: #### Franci 882-1, L100.0100, L501.2450, L700.6800, L500.4050 #### [facility] [address] [place], [address] Carbon dioxide, total [Moles /volume] in Central venous bloodOrdered By: Margarito Huston on 07-25-2024 CO2 [Moles/Vol] 20.4 mmol/L Low 21.0-32.0 [facility] Chloride assayOrdered By: Kalpesh Huston on 07-25-2024 Chloride [Moles/Vol] 104 mmol/L 98-108 [facility] Comprehensive Metabolic Prof ilon 07-25-2024 Albumin [Mass/Vol] 4.4 g/dL Normal 3.5-5.0 [facility] Comment on above: Performed By: #### Franci 882-1, L100.0100, L501.2450, L700.6800, L500.4050 ####[facility] [address] [place], [address] Albumin/Globulin [Mass ratio] 1.5 {ratio} Normal 0.9-2.4 [facility] Comment on above: Performed By: #### B 882-1, L100.0100, L501.2450, L700.6800, L500.4050 ####[facility] [address] [place], [address] ALK PHOS 73 U/L Normal 35-104 [facility] Comment on above: Performed By: #### B 882-1, L100.0100, L501.2450, L700.6800, L500.4050 ####[facility] [address] [place], [address] ALT [Catalytic activity/Vol] 22 U/L Normal <=34 [facility] Comment on above: Performed By: #### Franci 882-1, L100.0100, L501.2450, L700.6800, L500.4050 ####[facility] [address] [place], [address] AST [Catalytic activity/Vol] 17 U/L Normal <=31 [facility] Comment on above: Performed By: #### Franci 882-1, L100.0100, L501.2450, L700.6800, L500.4050 ####[facility] [address] [place], [address] Bilirubin [Mass/Vol] 0.52 mg/dL Normal 0.00-1.30 [facility] Comment on above: Performed By: #### B 882-1, L100.0100, L501.2450, L700.6800, L500.4050 ####[facility] [address] [place], [address] BUN/CRE 12.3 RATIO Normal 10-20 [facility] Comment on above: Performed By: #### Franci 882-1, L100.0100, L501.2450, L700.6800, L500.4050 ####[facility] [address] [place], [address] Calcium [Mass/Vol] 9.3 mg/dL Normal 7.6-11.0 [facility] Comment on above: Performed By: #### Franci 882-1, L100.0100, L501.2450, L700.6800, L500.4050 ####[facility] [address] [place], [address] Chloride [Moles/Vol] 104 mmol/L Normal 98-108 [facility] Comment on above: Performed By: #### Franci 882-1, L100.0100, L501.2450, L700.6800, L500.4050 ####[facility] [address] [place], [address] CO2 [Moles/Vol] 20.4 mmol/L Low 21.0-32.0 [facility] Comment on above: Performed By: #### Franci 882-1, L100.0100, L501.2450, L700.6800, L500.4050 ####[facility] [address] [place], [address] Creatinine [Mass/Vol] 0.41 mg/dL Low 0.70-1.20 [facility] Comment on above: Performed By: #### Franci 882-1, L100.0100, L501.2450, L700.6800, L500.4050 ####[facility] [address] [place], [address] ECRCL 260.82 ml/min High 50-250 [facility] Comment on above: Performed By: #### Franci 882-1, L100.0100, L501.2450, L700.6800, L500.4050 ####[facility] [address] [place], [address] GAP 12 Normal 5-15 [facility] Comment on above: Performed By: #### Franci 882-1, L100.0100, L501.2450, L700.6800, L500.4050 ####[facility] [address] [place], [address] GFR/1.73 sq M.predicted among non-blacks MDRD (S/P/Bld) [Vol rate/Area] 138 mL/min/{1.73_m2} Normal >60 [facility] Comment on above: Result Comment: mL/m in/1.73m2 CKD-EPI Creatinine Equation (2020) Performed By: #### Franci 882-1, L100.0100, L501.2450, L700.6800, L500.4050 ####[facility] [address] [place], [address] Globulin (S) [Mass/Vol] 2.8 g/dL Normal 2.2-4.2 [facility] Comment on above: Performed By: #### Franci 882-1, L100.0100, L501.2450, L700.6800, L500.4050 ####[facility] [address] [place], [address] Glucose [Mass/Vol] 87 mg/dL Normal 70-99 [facility] Comment on above: Performed By: #### Franci 882-1, L100.0100, L501.2450, L700.6800, L500.4050 ####[facility] [address] [place], [address] Potassium [Moles/Vol] 3.6 mmol/L Normal 3.3-5.1 [facility] Comment on above: Performed By: #### Franci 882-1, L100.0100, L501.2450, L700.6800, L500.4050 ####[facility] [address] [place], [address] Sodium [Moles/Vol] 136 mmol/L Normal 133-145 [facility] Comment on above: Performed By: #### B 882-1, L100.0100, L501.2450, L700.6800, L500.4050 ####[facility] [address] [place] [place], [address] T PROT 7.2 g/dL Normal 5.9-8.4 [facility] Comment on above: Performed By: #### B 882-1, L100.0100, L501.2450, L700.6800, L500.4050 ####[facility] [address] [place], [address] Urea nitrogen [Mass/Vol] 5 mg/dL Normal 4-19 [facility] Comment on above: Performed By: #### B 882-1, L100.0100, L501.2450, L700.6800, L500.4050 ####[facility] [address] [place], [address] Emergency Department Summary on 07-25-2024 Emergency Department Summary [facility] Medical Records Department [address] [place] [address] Emergency Department Summary 07/25/24 MR#: [id number] Acct: [id number] Name: JEFF RUSHING Rep #: [id number] : 1995 29 From: Margarito Huston DO [...] some heavier bleeding therefore she called her [employer] and they advised her to come here for further evaluation management. Patient states that she is not have any pain right now. [facility]SH [facility] Medical History Recurrent loss Trichomonal vaginitis Seasonal [...] mg-folate no.1 1 mg-dha 300 mg capsule (PNV-[place]) cephalexin 500 mg capsule 500 mg PO Q12H 5 days #10 caps Unknown Rx Allergy/AdvReac Type Severity Reaction Status Date / Time Iodinated Contrast Media Allergy Mild Hives Verified 07/25/24 11:13 Family History Grandmother Throat cancer, Onset Age: 68 Maternal Grandfather Lung cancer Maternal, smoker-onset age unknown Father Diabetes Hypertension Myocardial infarction Surgical History [place] teeth removed Social History adopted: No [...] physical activity do you participate in: none whitney/congregational: Jehovah'[employer] Witness seatbelt use: always do you feel safe [...] follow commands knew that she was at [facility] year is 2024 Skin: Warm, dry, intact no rashes lesions noted Const Vital Signs: 07/25/24 11:13 Temperature 97.3 F L Temperature Source Temporal Pulse Rate 89 Respiratory Rate 16 Blood Pressure 134/101 H Blood Pressure Mean 112 Pulse Ox 99 Oxygen Delivery Method Room A (more content not included)... Normal [facility] Eosinophil percentageOrdered By: Margarito Huston on 07-25-2024 Eosinophils/100 WBC (Bld) 0.6 % 0-5 [facility] Erythrocyte distribution wid th ratioOrdered By: Margarito Huston on 07-25-2024 Erythrocyte distribution width (RBC) [Ratio] 12.2 % 11.6-14.6 [facility] Erythrocyte distribution wid th standard deviationOrdered By: Margarito Huston on 07-25-2024 Erythrocyte distribution width (RBC) [Ratio] 36.9 fl 35.1-43.9 [facility] Glomerular filtration rate ( GFR) estimation/1.73 sq m using serum, plasma, or whole bOrdered By: Margarito Huston on 07-25-2024 GFR/1.73 sq M.predicted among non-blacks MDRD (S/P/Bld) [Vol rate/Area] 138 mL/min/{1.73_m2} >60 [facility] Comment on above: mL/min/1.73m2 CKD-EP I Creatinine Equation (2020) Hematocrit Auto (Bld) [Volum e fraction]Ordered By: Margarito Huston on 07-25-2024 Hematocrit (Bld) [Volume fraction] 42.8 % 37-47 [facility] Hemoglobin measurementOrdere d By: Margarito Huston on 07-25-2024 Hemoglobin (Bld) [Mass/Vol] 14.9 g/dL 12.0-15.0 [facility] Immature granulocytes/100 WB C Auto (Bld)Ordered By: Margarito Huston on 07-25-2024 Immature granulocytes/100 WBC (Bld) 0.300 % 0.0-0.9 [facility] Comment on above: IG% - Immature Granu locytes (promyelocytes, myelocytes and metamyelocytes) > 1% indicates that a LEFT SHIFT is Present. Ketones Test strip Ql (U)Ord ered By: Margarito Huston on 07-25-2024 Ketones Ql (U) Negative Negative [facility] - Chemistry and C hemistry - challengeOrdered By: Margarito Huston on 07-25-2024 AST [Catalytic activity/Vol] 17 U/L <32 [facility] Lipaseon 07-25-2024 Lipase [Catalytic activity/Vol] 17 U/L Normal 13-75 [facility] Comment on above: Result Comment: Alysia guardado note: LIPASE revised reference range effective 22. New Lipase methodology. Expected to produce lower values than the previous assay method. NEW Reference Range: 13 - 75 U/L Performed By: #### B 882-1, L100.0100, L501.2450, L700.6800, L500.4050 ####[facility] [address] [place], [address] Lipase measurementOrdered By : Margarito Huston on 07-25-2024 Lipase [Catalytic activity/Vol] 17 U/L 13-75 [facility] Comment on above: Please note:LIPASE r evised reference range effective 22. New Lipase methodology. Expected to produce lower values than the previous assay method. NEW Reference Range: 13 - 75 U/L MCV (mean corpuscular volume ) determinationOrdered By: Margarito Huston on 07-25-2024 MCV (RBC) [Entitic vol] 84.1 fL 81-[address] [facility] Mean corpuscular hemoglobin (MCH) determinationOrdered By: Margarito Huston on 07-25-2024 MCH (RBC) [Entitic mass] 29.3 pg 27.0-32.0 [facility] Mean corpuscular hemoglobin concentration (MCHC) determinationOrdered By: Margarito Huston on 07-25-2024 MCHC (RBC) [Mass/Vol] 34.8 g/dL 32-36 [facility] Mean platelet volume determi nationOrdered By: Margarito Huston on 07-25-2024 Platelet mean volume (Bld) [Entitic vol] 11.9 fL 6.2-12.0 [facility] Microscopic analysis of urin e for red blood cells (RBC)Ordered By: Margarito Huston on 07-25-2024 Microscopic analysis of urine for red blood cells (RBC) 0-5 SEEN /hpf 0-5 [facility] Monocyte percentageOrdered B y: Margarito Huston on 07-25-2024 Monocytes/100 WBC (Bld) 5.1 % 0-[address] [facility] Mucus LM Ql (Urine sed)Order ed By: Margarito Huston on 07-25-2024 Mucus Ql (Urine sed) 1+ /hpf [facility] Neutrophil percentageOrdered By: Margarito Huston on 07-25-2024 Neutrophils/100 WBC (Bld) 58.7 % 47-70 [facility] Nitrite Test strip Ql (U)Ord ered By: Margarito Huston on 07-25-2024 Nitrite Ql (U) Negative Negative [facility] Nucleated red blood cell per centageOrdered By: Margarito Huston on 07-25-2024 Nucleated RBC/100 WBC (Bld) [Ratio] 0 % 0-5 [facility] Platelet countOrdered By: Kalpesh Huston on 07-25-2024 Platelets (Bld) [#/Vol] 203 10*3/uL 150-450 [facility] Potassium measurement (mass/ volume)Ordered By: Margarito Huston on 07-25-2024 Potassium (Unsp spec) [Mass/Vol] 3.6 mmol/L 3.3-5.1 [facility] ,Serum,hCG Quali.on 07-25-2024 HCG, SERUM QUAL Positive Normal [facility] Comment on above: Result Comment: RESU LTS CALLED TO Stefany KAM 07/25/24 Malena Kerr. REPORT READ BACK BY SAME. Performed By: #### B 882-1, L100.0100, L501.2450, L700.6800, L500.4050 #### [facility] [place], [address] Protein Test strip Ql (U)Ord ered By: Margarito Huston on 07-25-2024 Protein Ql (U) 30 mg/dl High Negative [facility] RBC Auto (Bld) [#/Vol]Ordere d By: Margarito Huston on 07-25-2024 RBC (Bld) [#/Vol] 5.09 10*6/uL 4.2-5.4 [facility] Serum beta-hCG test, qualita tiveOrdered By: Margarito Huston on 07-25-2024 Beta HCG ( test) Ql Negative [facility] Comment on above: RESULTS CALLED TO Stefany KAM 07/25/24 Malena Kerr.REPORT READ BACK BY KORIN. Serum creatinine measurement (mass/volume)Ordered By: Margarito Huston on 07-25-2024 Creatinine [Mass/Vol] 0.41 mg/dL Low 0.70-1.20 [facility] Serum globulin measurementOr dered By: Margarito Huston on 07-25-2024 Globulin (S) [Mass/Vol] 2.8 g/dL 2.2-4.[address] [facility] Serum glucose measurement (m ass/volume)Ordered By: Margarito Huston on 07-25-2024 Glucose [Mass/Vol] 87 mg/dL 70-99 [facility] Serum human chorionic gonado tropin detection for pregnancyOrdered By: Margarito Huston on 07-25-2024 HCG ( test) [place]l [address] mIU/mL High <9 [facility] Comment on above: Gestational Age0.2-1 Week: 5-50 mIU/mL1-2 Weeks: 50-500 mIU/mL2-3 Weeks: 100-5000 mIU/mL3-4 Weeks: 500-10,000 mIU/mL4-5 Weeks:1000-50,000 mIU/mL5-6 Weeks: 10,000-100,000 mIU/mL6-8 Weeks: 15,000-200,000 mIU/mL2-3 Months:10,000-100,000 mIU/mL Serum or plasma alanine bae otransferase (ALT) measurementOrdered By: Margarito Huston on 07-25-2024 ALT [Catalytic activity/Vol] 22 U/L <35 [facility] Serum or plasma albumin ash urement (mass/volume)Ordered By: Margarito Huston on 07-25-2024 Albumin [Mass/Vol] 4.4 g/dL 3.5-5.0 [facility] Serum or plasma albumin/glob ulin mass ratioOrdered By: Margarito Huston on 07-25-2024 Albumin/Globulin [Mass ratio] 1.5 {ratio} 0.9-2.4 [facility] Serum or plasma alkaline belle sphatase measurementOrdered By: Margarito Huston on 07-25-2024 ALP [Catalytic activity/Vol] 73 U/L 35-104 [facility] Serum or plasma calcium ash urement (mass/volume)Ordered By: Margarito Huston on 07-25-2024 Calcium [Mass/Vol] 9.3 mg/dL 7.6-11.0 [facility] Serum or plasma urea nitroge n measurement (mass/volume)Ordered By: Margarito Huston on 07-25-2024 Urea nitrogen [Mass/Vol] 5 mg/dL 4-19 [facility] Sodium levelOrdered By: Placido Huston on 07-25-2024 Sodium [Moles/Vol] 136 mmol/L 133-145 [facility] Squamous epithelial cells de tection in urine sediment by light microscopyOrdered By: Margarito Huston on 07-25-2024 Epithelial cells.squamous LM Ql (Urine sed) 0-5 SEEN /hpf 5-10 [facility] Total proteinOrdered By: William Huston on 07-25-2024 Protein [Mass/Vol] 7.2 g/dL 5.9-8.4 [facility] Transvaginal w/Preg USon Transvaginal w/Preg US [facility] [address] [place], [place] [address] Transvaginal w/Preg US MR#: [id number] Acct: [id number] Name: JEFF RUSHING Rep #: [id number] : 1995 F 29 From: Maru Varghese MD PCP: Care Physician,No Primary Status: REG ER Study: Transvaginal w/Preg US Date of Exam: 07/25/24 Exam# [id number] Ordering Dr: Margarito Huston DO EXAM: US [...] live intrauterine . Reading Location: [facility] CC: Dr. Margarito Huston DO; No Primary Care Physician Monotype Keyboard Operator: Signed Normal [facility] Urinalysis, Completeon 07-25 BACTERIA 2+ /hpf Normal None Seen [facility] Comment on above: Order Comment: CLEAN CATCH Performed By: #### L 400.0001 #### [facility] [address] [place], [address] EPI,SQUAMOUS 0-5 SEEN Normal 5-10 [facility] Comment on above: Order Comment: CLEAN CATCH Performed By: #### L 400.0001 #### [facility] [address] [place], [address] Mucus Ql (Urine sed) 1+ /hpf Normal [facility] Comment on above: Order Comment: CLEAN CATCH Performed By: #### L 400.0001 #### [facility] [address] [place], [address] RBC 0-5 SEEN Normal 0-5 [facility] Comment on above: Order Comment: CLEAN CATCH Performed By: #### L 400.0001 #### [facility] [address] [place], [address] WBC 0-5 SEEN Normal 0-5 [facility] Comment on above: Order Comment: CLEAN CATCH Performed By: #### L 400.0001 #### [facility] [address] [place], [address] Urine clarityOrdered By: William Huston on 07-25-2024 Clarity (U) Sl. Cloudy Clear [facility] Urine color determinationOrd ered By: Margarito Huston on 07-25-2024 Color (U) Yellow Yellow [facility] Urine cultureOrdered By: William Huston on 07-25-2024 Bacteria identified Cx Nom (U) Positive Abnormal [facility] Urine glucose detectionOrder ed By: Margarito Huston on 07-25-2024 Glucose Ql (U) Normal mg/dl Normal [facility] Urine leukocyte esterase det ection by dipstickOrdered By: Margarito Huston on 07-25-2024 Leukocyte esterase Test strip Ql (U) 25 /ul High Negative [facility] Urine pHOrdered By: Margarito latham on 07-25-2024 pH (U) 6.5 [pH] 5.0 - 8.0 [facility] Urine sediment bacteria coun t by microscopy (number/high power field)Ordered By: Margarito Huston on 07-25-2024 Bacteria LM.HPF (Urine sed) [#/Area] 2 /[HPF] None Seen [facility] Urine specific gravity measu rementOrdered By: Margarito Huston on 07-25-2024 Specific gravity (U) [Rel density] 1.015 1.002-1.030 [facility] Urine urobilinogen measureme ntOrdered By: Margarito Huston on 07-25-2024 Urobilinogen Ql (U) Normal mg/dl Normal [facility] White blood cell (WBC) count Ordered By: Margarito Huston on 07-25-2024 WBC (Bld) [#/Vol] 6.7 10*3/uL 4.4-11.0 [facility] White blood cell countOrdere d By: Margarito Huston on 07-25-2024 White blood cell count 0-5 SEEN /hpf 0-5 [facility] hCG Titer Quant., Serumon HCG QUANT. 67561 mIU/mL High <9 non-preg [facility] Comment on above: Result Comment: Gest ational Age 0.2-1 Week: 5-50 mIU/mL 1-2 Weeks: 50-500 mIU/mL 2-3 Weeks: 100-5000 mIU/mL 3-4 Weeks: 500-10,000 mIU/mL 4-5 Weeks:1000-50,000 mIU/mL 5-6 Weeks: 10,000-100,000 mIU/mL 6-8 Weeks: 15,000-200,000 mIU/mL 2-3 Months:10,000-100,000 mIU/mL Performed By: #### L 501.0900, L100.0100, L500.4050 #### [facility] [address] [place], [place], [address] PROGESTERONE 4317on 07-22-19 PROGESTERONE 7.7 ng/mL Normal . [facility] Comment on above: Order Comment: N Result Comment: Foll icular phase 0.1 - 0.9 Luteal phase 1.8 - 23.9 Ovulation phase 0.1 - 12.0 First trimester 11.0 - 44.3 Second trimester 25.4 - 83.3 Third trimester 58.7 - 214.0 Postmenopausal 0.0 - 0.1 Performed at: [address] [id number] [employer] Helper: Juan M Nielsen PhD, Phone: [phone] Performed By: #### L 801.2600, L700.2270 ####[facility] [address] [place], [place], [id number] Serum human chorionic gonado tropin detection for pregnancyOrdered By: Aaliyah Borrego on 07-21-2024 HCG ( test) [place]l [address] mIU/mL High <9 [facility] Comment on above: Gestational Age0.2-1 Week: 5-50 mIU/mL1-2 Weeks: 50-500 mIU/mL2-3 Weeks: 100-5000 mIU/mL3-4 Weeks: 500-10,000 mIU/mL4-5 Weeks:1000-50,000 mIU/mL5-6 Weeks: 10,000-100,000 mIU/mL6-8 Weeks: 15,000-200,000 mIU/mL2-3 Months:10,000-100,000 mIU/mL hCG Titer Quant., Serumon HCG QUANT. 99840 mIU/mL High <9 non-preg [facility] Comment on above: Result Comment: Gest ational Age 0.2-1 Week: 5-50 mIU/mL 1-2 Weeks: 50-500 mIU/mL 2-3 Weeks: 100-5000 mIU/mL 3-4 Weeks: 500-10,000 mIU/mL 4-5 Weeks:1000-50,000 mIU/mL 5-6 Weeks: 10,000-100,000 mIU/mL 6-8 Weeks: 15,000-200,000 mIU/mL 2-3 Months:10,000-100,000 mIU/mL Performed By: #### L 501.0900, L100.0100, L500.4050 #### [facility] [facility] [address] [place], [place], [address] Serum human chorionic gonado tropin detection for pregnancyOrdered By: Aaliyah Borrego on 07-19-2024 HCG ( test) Ql 8841 mIU/mL High <9 [facility] Comment on above: Gestational Age0.2-1 Week: 5-50 mIU/mL1-2 Weeks: 50-500 mIU/mL2-3 Weeks: 100-5000 mIU/mL3-4 Weeks: 500-10,000 mIU/mL4-5 Weeks:1000-50,000 mIU/mL5-6 Weeks: 10,000-100,000 mIU/mL6-8 Weeks: 15,000-200,000 mIU/mL2-3 Months:10,000-100,000 mIU/mL Transvaginal w/Preg USon Transvaginal w/Preg US [facility] [address] [place], [place] [address] Transvaginal w/Preg US MR#: [id number] Acct: [id number] Name: JEFF RUSHING Rep #: [id number] : 1995 F 29 From: Kwame lanier MD PCP: Care Physician,No Primary Status: REG CLI Study: Transvaginal w/Preg US Date of Exam: 07/19/24 Exam# [id number] Ordering Dr: Aailyah Borrego CNM PROCEDURE: TRANSVAGINAL W/PREG US 07/19/2024 [...] seen in the right ovary. Reading Location: [id number] CC: SALLIE Borrego; No Primary Care Physician Monotype Keyboard Operator: Signed Normal [facility] hCG Titer Quant., Serumon HCG QUANT. 8841 mIU/mL High <9 non-preg [facility] Comment on above: Result Comment: Gest ational Age 0.2-1 Week: 5-50 mIU/mL 1-2 Weeks: 50-500 mIU/mL 2-3 Weeks: 100-5000 mIU/mL 3-4 Weeks: 500-10,000 mIU/mL 4-5 Weeks:1000-50,000 mIU/mL 5-6 Weeks: 10,000-100,000 mIU/mL 6-8 Weeks: 15,000-200,000 mIU/mL 2-3 Months:10,000-100,000 mIU/mL Performed By: #### L 801.2600, L700.8000 ####[facility] [address] [place], [address] Laboratory - Chemistry and C hemistry - challengeOrdered By: Diana Soliman on 07-16-2024 HCG ( test) Ql (U) Positive [facility] Office Visit Reporton 2024 Office Visit Report [facility] [address] [address] OFFICE VISIT Date of Service: 07/16/24 MR#: [id number] Acct: [id number] Patient: JEFF RUSHING Rep #: [id number] : 1995 Provider: Dr. Diana Morton, Age/Sex: 29/F Location: [facility] Status: Signed Intake Vital Signs 10/17/23 10:44 07/16/24 14:24 Height 5 ft 8 in 5 ft 8 in Weight: 235 lb 8 oz BMI 35.8 BP 116/76 Intake Visit Reasons: PNOB/Confirmation of Special Inspector Required: No Is patient in pain?: No [...] mg-folate no.1 1 mg-dha 300 mg capsule (PNV-Easton) cephalexin 500 mg capsule 500 mg PO [...] Positive Last Edit by Kyleigh Brewster on 05/09/25 14:27 Nursing Note here for amenorrhea and [...] Quit 2021 (9) Anxiety: Status: Acute (10) Ncmiu-Cnqbgkwsv-Gat te syndrome: Status: Acute (11) at early [...] Diana Monique Signature: Date (if applicable) CC: [facility] ALLIED HEALTHon 07-15-2024 ALLIED HEALTH HNO ID: [id number] Author: SIMRAN RICKS RDMS Service: Radiology Author [...] PATIENT PRESENTS WITH AN IMPLANTABLE OR ATTACHED ELIGIBILITY SPECIALIST: No RADIOLOGY DEPARTMENT: Ultrasound PERIPHERAL IV DATA: Not applicable SIGNED BY: Simran Ricks RDMS July 15, 2024 2:30 PM [facility] BETA HCG, QUANTITATIVE FOR Juan Diego Camacho 07-15-2024 HCG.beta subunit Qn 1851.0 m[IU]/mL High <5.0 [facility] Comment on above: Order Comment: Speci men Type: BLOOD SPECIMEN Ordering Facility: [facility] Address: [address] [place] [address] Result Comment: TI TITATIVE HCG NORMAL RANGES Weeks of Gestation (Weeks Since LMP) 3 Weeks (5.8-71.2 mIU/mL) 4 Weeks (9.5-750 mIU/mL) 5 Weeks (217-7138 mIU/mL) 6 Weeks (158-96052 mIU/mL) 7 Weeks (3697-219195 mIU/mL) 8 Weeks (59070-233523 mIU/mL) 9 Weeks (64909-451873 mIU/mL) 10 Weeks (35949-002208 mIU/mL) 12 Weeks (54751-587068 mIU/mL) Referenced to 4th IS of [facility] Performed By: #### H CGED, 78624-9 #### [facility] CLIA [id number] [address] [place] [address] [place] CBC W Auto Differential pane l (Bld)on 07-15-2024 Basophils (Bld) [#/Vol] 10*3/uL Normal <0.11 M [facility] Comment on above: Order Comment: Speci men Type: BLOOD SPECIMEN Ordering Facility: [facility] Address: [address] [place] [address] Performed By: #### 5 7021-8 #### [facility] CLIA [id number] [address] [place] [address] [place] Basophils/100 WBC (Bld) 0.3 % Normal [facility] Comment on above: Order Comment: Speci men Type: BLOOD SPECIMEN Ordering Facility: [facility] Address: [address] [place] [address] Performed By: #### 5 7021-8 #### [facility] CLIA [id number] [address] [place] Differential cell count method Nom (Bld) Auto Normal [facility] Comment on above: Order Comment: Speci men Type: BLOOD SPECIMEN Ordering Facility: [facility] Address: [address] [place] [address] Performed By: #### 5 7021-8 #### [facility] CLIA [id number] [address] [place] [address] [place] Eosinophils (Bld) [#/Vol] 0.07 10*3/uL Normal <0.46 [facility] Comment on above: Order Comment: Speci men Type: BLOOD SPECIMEN Ordering Facility: [facility] Address: [address] [place] [address] Performed By: #### 5 7021-8 #### [facility] CLIA [id number] [address] Eosinophils/100 WBC (Bld) 0.9 % Normal [facility] Comment on above: Order Comment: Speci men Type: BLOOD SPECIMEN Ordering Facility: [facility] Address: [address] [place] [address] Performed By: #### 5 7021-8 #### [facility] CLIA [id number] [address] [place] Erythrocyte distribution width (RBC) [Ratio] 12.3 % Normal 11.5-15.0 [facility] Comment on above: Order Comment: Speci men Type: BLOOD SPECIMEN Ordering Facility: [facility] Address: [address] [place] [address] Performed By: #### 5 7021-8 #### [facility] CLIA [id number] [address] [place] Hematocrit (Bld) [Volume fraction] 41.5 % Normal 36.0-46.0 [facility] Comment on above: Order Comment: Speci men Type: BLOOD SPECIMEN Ordering Facility: [facility] Address: [address] [place] [address] Performed By: #### 5 7021-8 #### [facility] CLIA [id number] [address] [place] Hemoglobin (Bld) [Mass/Vol] 14.1 g/dL Normal 11.5-15.5 [facility] Comment on above: Order Comment: Speci men Type: BLOOD SPECIMEN Ordering Facility: [facility] Address: [address] [place] [address] Performed By: #### 5 7021-8 #### [facility] CLIA [id number] [address] [place] Immature granulocytes (Bld) [#/Vol] 10*3/uL Normal <0.10 [facility] Comment on above: Order Comment: Speci men Type: BLOOD SPECIMEN Ordering Facility: [facility] Address: [address] [place] [address] Performed By: #### 5 7021-8 #### [facility] CLIA [id number] [address] Immature granulocytes/100 WBC (Bld) 0.3 % Normal [facility] Comment on above: Order Comment: Speci men Type: BLOOD SPECIMEN Ordering Facility: [facility] Address: [address] [place] [address] Performed By: #### 5 7021-8 #### [facility] CLIA [id number] [address] Lymphocytes (Bld) [#/Vol] 2.43 10*3/uL Normal 1.00-4.00 [facility] Comment on above: Order Comment: Speci men Type: BLOOD SPECIMEN Ordering Facility: [facility] Address: [address] [place] [address] Performed By: #### 5 7021-8 #### [facility] CLIA [id number] [address] Lymphocytes/100 WBC (Bld) 32.8 % Normal [facility] Comment on above: Order Comment: Speci men Type: BLOOD SPECIMEN Ordering Facility: [facility] Address: [address] [place] [address] Performed By: #### 5 7021-8 #### [facility] CLIA [id number] [address] [place] MCH (RBC) [Entitic mass] 29.0 pg Normal 26.0-34.0 [facility] Comment on above: Order Comment: Speci men Type: BLOOD SPECIMEN Ordering Facility: [facility] Address: [address] [place] [address] Performed By: #### 5 7021-8 #### [facility] CLIA [id number] [address] MCHC (RBC) [Mass/Vol] 34.0 g/dL Normal 30.5-36.0 [facility] Comment on above: Order Comment: Speci men Type: BLOOD SPECIMEN Ordering Facility: [facility] Address: [address] [place] [address] Performed By: #### 5 7021-8 #### [facility] CLIA [id number] [address] MCV (RBC) [Entitic vol] 85.2 fL Normal 80.0-100.0 [facility] Comment on above: Order Comment: Speci men Type: BLOOD SPECIMEN Ordering Facility: [facility] Address: [address] [place] [address] Performed By: #### 5 7021-8 #### [facility] CLIA [id number] [address] Monocytes (Bld) [#/Vol] 0.39 10*3/uL Normal <0.87 [facility] Comment on above: Order Comment: Speci men Type: BLOOD SPECIMEN Ordering Facility: [facility] Address: [address] [place] [address] Performed By: #### 5 7021-8 #### [facility] CLIA [id number] [address] Monocytes/100 WBC (Bld) 5.3 % Normal [facility] Comment on above: Order Comment: Speci men Type: BLOOD SPECIMEN Ordering Facility: [facility] Address: [address] [place] [address] Performed By: #### 5 7021-8 #### [facility] CLIA [id number] [address] Neutrophils (Bld) [#/Vol] 4.47 10*3/uL Normal 1.45-7.50 [facility] Comment on above: Order Comment: Speci men Type: BLOOD SPECIMEN Ordering Facility: [facility] Address: [address] [place] [address] Performed By: #### 5 7021-8 #### [facility] CLIA [id number] [address] Neutrophils/100 WBC (Bld) 60.4 % Normal [facility] Comment on above: Order Comment: Speci men Type: BLOOD SPECIMEN Ordering Facility: [facility] Address: [address] [place] [address] Performed By: #### 5 7021-8 #### [facility] CLIA [id number] [address] [place] Nucleated RBC (Bld) [#/Vol] 10*3/uL Normal <0.01 [facility] Comment on above: Order Comment: Speci men Type: BLOOD SPECIMEN Ordering Facility: [facility] Address: [address] [place] [address] Performed By: #### 5 7021-8 #### [facility] CLIA [id number] [address] [place] Nucleated RBC/100 WBC (Bld) [Ratio] 0.0 /[address] [facility] Comment on above: Order Comment: Speci men Type: BLOOD SPECIMEN Ordering Facility: [facility] Address: [address] [place] [address] Performed By: #### 5 7021-8 #### [facility] CLIA [id number] [address] [place] Platelet mean volume (Bld) [Entitic vol] 11.7 fL Normal 9.0-12.7 [facility] Comment on above: Order Comment: Speci men Type: BLOOD SPECIMEN Ordering Facility: [facility] Address: [address] [place] [address] Performed By: #### 5 7021-8 #### [facility] CLIA [id number] [address] [place] [address] [place] Platelets (Bld) [#/Vol] 221 10*3/uL Normal 150-400 [facility] Comment on above: Order Comment: Speci men Type: BLOOD SPECIMEN Ordering Facility: [facility] Address: [address] [place] [address] Performed By: #### 5 7021-8 #### [facility] CLIA [id number] [address] OF [facility] RBC (Bld) [#/Vol] 4.87 10*6/uL Normal 3.90-5.20 [facility] Comment on above: Order Comment: Speci men Type: BLOOD SPECIMEN Ordering Facility: [facility] Address: [address] [place] [address] Performed By: #### 5 7021-8 #### [facility] CLIA [id number] [address] OF [facility] WBC (Bld) [#/Vol] 7.40 10*3/uL Normal 3.70-11.00 [facility] Comment on above: Order Comment: Speci men Type: BLOOD SPECIMEN Ordering Facility: [facility] Address: [address] [place] [address] Performed By: #### 5 7021-8 #### [facility] CLIA [id number] [address] Comprehensive metabolic 2000 panelon 07-15-2024 Albumin [Mass/Vol] 4.2 g/dL Normal 3.9-4.9 [facility] Comment on above: Order Comment: Speci men Type: BLOOD SPECIMEN Ordering Facility: [facility] Address: [address] [place] [address] Performed By: #### H CGED, 07132-7 #### [facility] CLIA [id number] [address] ALP [Catalytic activity/Vol] 67 U/L Normal 34-123 [facility] Comment on above: Order Comment: Speci men Type: BLOOD SPECIMEN Ordering Facility: [facility] Address: [address] [place] [address] Performed By: #### H CGED, 80075-5 #### [facility] CLIA [id number] [address] [place] [address] [place] ALT [Catalytic activity/Vol] 28 U/L Normal 7-38 [facility] Comment on above: Order Comment: Speci men Type: BLOOD SPECIMEN Ordering Facility: [facility] Address: [address] [place] [address] Performed By: #### H CGED, 23432-3 #### [facility] CLIA [id number] [address] [place] [address] [place] Anion gap [Moles/Vol] 12 mmol/L Normal 8-15 [facility] Comment on above: Order Comment: Speci men Type: BLOOD SPECIMEN Ordering Facility: [facility] Address: [address] [place] [address] Performed By: #### H CGED, 88691-1 #### [facility] CLIA [id number] [address] AST [Catalytic activity/Vol] 22 U/L Normal 13-35 [facility] Comment on above: Order Comment: Speci men Type: BLOOD SPECIMEN Ordering Facility: [facility] Address: [address] [place] [address] Performed By: #### H CGED, 82854-5 #### [facility] CLIA [id number] [address] [place] Bilirubin [Mass/Vol] 0.3 mg/dL Normal 0.2-1.3 [facility] Comment on above: Order Comment: Speci men Type: BLOOD SPECIMEN Ordering Facility: [facility] Address: [address] [place] [address] Performed By: #### H CGED, 14002-9 #### [facility] CLIA [id number] [address] [place] [address] [place] Calcium [Mass/Vol] 8.8 mg/dL Normal 8.5-10.2 [facility] Comment on above: Order Comment: Speci men Type: BLOOD SPECIMEN Ordering Facility: [facility] Address: [address] [place] [address] Performed By: #### H CGED, 18831-9 #### [facility] CLIA [id number] [address] [place] [address] [place] Chloride [Moles/Vol] 101 mmol/L Normal 98-107 [facility] Comment on above: Order Comment: Khadar dye Type: BLOOD SPECIMEN Ordering Facility: [facility] Address: [address] [place] [address] Performed By: #### H CGED, 81049-6 #### [facility] CLIA [id number] [address] [place] [address] [place] CO2 [Moles/Vol] 23 mmol/L Normal 22-30 [facility] Comment on above: Order Comment: Khadar men Type: BLOOD SPECIMEN Ordering Facility: [facility] Address: [address] [place] [address] Performed By: #### H CGED, 58163-4 #### [facility] CLIA [id number] [address] [place] Creatinine [Mass/Vol] 0.52 mg/dL Low 0.58-0.96 [facility] Comment on above: Order Comment: Khadar men Type: BLOOD SPECIMEN Ordering Facility: [facility] Address: [address] [place] [address] Performed By: #### H CGED, 73586-1 #### [facility] CLIA [id number] [address] Creatinine and Glomerular filtration rate.predicted panel (S/P/Bld) 131 mL/min/1.73m??? Normal >=60 [facility] Comment on above: Order Comment: Khadar hardik Type: BLOOD SPECIMEN Ordering Facility: [facility] Address: [address] [place] [address] Result Comment: Thu mated Glomerular Filtration Rate [...] actual GFR. Performed By: #### H CGED, 67269-7 #### [facility] CLIA [id number] [address] [place] [address] [place] Glucose [Mass/Vol] 127 mg/dL High 74-99 [facility] Comment on above: Order Comment: Khadar dye Type: BLOOD SPECIMEN Ordering Facility: [facility] Address: [address] [id number] Result Comment: The [place] [employer] (ADA) provides guidance for cutoff [...] Standards of Medical Care in Diabetes 2016, [place] [employer]. Diabetes Care. 2016.39(Suppl 1). Performed By: #### H CGED, 20565-4 #### [facility] CLIA [id number] [address] [place] [address] [place] Potassium [Moles/Vol] 3.7 mmol/L Normal 3.7-5.1 [facility] Comment on above: Order Comment: Khadar dye Type: BLOOD SPECIMEN Ordering Facility: [facility] Address: [address] [place] [address] Performed By: #### H CGED, 51583-8 #### [facility] CLIA [id number] [address] [place] [address] [place] Protein [Mass/Vol] 6.9 g/dL Normal 6.3-8.0 [facility] Comment on above: Order Comment: Khadar dye Type: BLOOD SPECIMEN Ordering Facility: [facility] Address: [address] [id number] Performed By: #### H CGED, 65868-9 #### [facility] CLIA [id number] [address] [place] [address] [place] Sodium [Moles/Vol] 136 mmol/L Normal 136-144 [facility] Comment on above: Order Comment: Khadar dye Type: BLOOD SPECIMEN Ordering Facility: [facility] Address: [address] [place], [place] [id number] Performed By: #### H CGED, 20135-2 #### [facility] CLIA [id number] [address] Urea nitrogen [Mass/Vol] 5 mg/dL Low 09-27 [facility] Comment on above: Order Comment: Speci men Type: BLOOD SPECIMEN Ordering Facility: [facility] Address: [address] [place] [address] Performed By: #### H CGED, 29055-1 #### [facility] CLIA [id number] [address] ED NOTEon 07-15-2024 ED NOTE HNO ID: [id number] Author: ATIF RANDHAWA RN Service: ? Author Type: Registered Nurse Type: ED Notes Filed: 07/15/2024 15:32 Note Text: Ultrasound brought over cd disc. [facility] ED NOTE HNO ID: [id number] Author: ATIF RANDHAWA RN Service: ? Author Type: Registered Nurse Type: ED Notes Filed: 07/15/2024 15:30 Note Text: Called over and they are bring disc at ultrasound, twila over per flor capellan. Pt in rm 10. Work excuse provided to return tomorrow . [facility] ED NOTE HNO ID: [id number] Author: ATIF RANDHAWA RN Service: ? Author Type: Registered Nurse Type: ED Notes Filed: 07/15/2024 15:29 Note Text: Denies vag bleed or discharge. [facility] ED PROV NOTEon 07-15-2024 ED PROV NOTE HNO ID: [id number] Author: MEGHNA GARCIA MD Service: ? Author [...] the last 2 days. She is currently [id number]. She reports LMP May 2024 but thinks she ovulated a few weeks later than normal based on her testing. She has had no bleeding or discharge. No fevers or chills. Pain has been intermittent lasting a second or two sharp stabbing in nature and resolves spontaneously. Today it has been frequent and she has some intermittent throbbing. History provided by: Patient teacher visually impaired used: No History reviewed. No pertinent past [...] components: Clarity Slightly Cloudy (*) Clear Specific Peggs, Ur >=1.030 (*) 1.005 - 1.030 Bacteria [...] findings of (more content not included)... Normal [facility] ED Triage Noteon 07-15-2024 ED Triage Note HNO ID: [id number] Author: DOMENICO TORRES MD Service: ? Author [...] for full HnP and MDM [facility] TYPE + SCREEN PRENATALon ABO O [facility] Comment on above: Order Comment: Speci men Type: BLOOD SPECIMEN Ordering Facility: [facility] Address: [address] [place] [address] Performed By: #### H CGED, 20861-7 #### [facility] CLIA [id number] [address] [place] [address] [place] Rh Nom (Bld) Positive [facility] Comment on above: Order Comment: Speci men Type: BLOOD SPECIMEN Ordering Facility: [facility] Address: [address] [place] [address] Performed By: #### H CGED, 06416-7 #### [facility] CLIA [id number] [address] [place] TYPE AND SCREEN EXPIRATION 07/18/2024 23:59 [facility] Comment on above: Order Comment: Speci men Type: BLOOD SPECIMEN Ordering Facility: [facility] Address: [address] [place] [address] Performed By: #### H CGED, 78273-0 #### [facility] CLIA [id number] [address] [place] [address] [place] US PREG TRANSABD <14 WKS LTD on 07-15-2024 US PREG TRANSABD <14 WKS LTD * * *Final Report* * * DATE OF EXAM: Jul 15 2024 2:35PM MDU 1035 - US PREG TRANSABD <14 WKS LTD / PROCEDURE REASON: Pelvic pain, positive beta-HCG, 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 Monotype Keyboard Operator: PSCB Transcribe Date/Time: Jul 15 2024 2:38P Dictated by : PAPITO OWENS MD This examination was interpreted and the report reviewed and electronically signed by: PAPITO OWENS MD on Jul 15 2024 2:49PM EST [id number] ACN Normal 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 Monotype Keyboard Operator: PSCFranci Transcribe Date/Time: Jul 15 2024 2:38P Dictated by : PAPITO OWENS MD This examination was interpreted and the report reviewed and electronically signed by: PAPITO OWENS MD on Jul 15 2024 2:49PM EST [id number] ACN Normal [facility] Urinalysis complete panel (U )on 07-15-2024 Bacteria LM.HPF (Urine sed) [#/Area] Few Abnormal None Seen [facility] Comment on above: Order Comment: Speci men Type: URINE SPECIMEN Ordering Facility: [facility] Address: [address] [place] [address] Performed By: #### 2 4356-8 #### [facility] CLIA [id number] [address] [place] [address] [place] Bilirubin Ql (U) Negative Normal Negative [facility] Comment on above: Order Comment: Speci men Type: URINE SPECIMEN Ordering Facility: [facility] Address: [address] [place] [address] Performed By: #### 2 4356-8 #### [facility] CLIA [id number] [address] [place] Clarity (Unsp spec) Slightly Cloudy Abnormal Clear [facility] Comment on above: Order Comment: Speci men Type: URINE SPECIMEN Ordering Facility: [facility] Address: [address] [place] [address] Performed By: #### 2 4356-8 #### [facility] CLIA [id number] [address] OF [facility] Color (U) Yellow Normal Yellow [facility] Comment on above: Order Comment: Speci men Type: URINE SPECIMEN Ordering Facility: [facility] Address: [address] [place] [address] Performed By: #### 2 4356-8 #### [facility] CLIA [id number] [address] Epithelial cells LM.HPF (Urine sed) [#/Area] Moderate Normal [facility] Comment on above: Order Comment: Speci men Type: URINE SPECIMEN Ordering Facility: [facility] Address: [address] [place] [address] Performed By: #### 2 4356-8 #### [facility] CLIA [id number] [address] [place] Glucose Test strip (U) [Mass/Vol] Negative Normal Negative [facility] Comment on above: Order Comment: Speci men Type: URINE SPECIMEN Ordering Facility: [facility] Address: [address] [place] [address] Performed By: #### 2 4356-8 #### [facility] CLIA [id number] [address] [place] Hemoglobin Ql (U) Negative Normal Negative [facility] Comment on above: Order Comment: Speci men Type: URINE SPECIMEN Ordering Facility: [facility] Address: [address] [place] [address] Performed By: #### 2 4356-8 #### [facility] CLIA [id number] [address] OF [facility] Ketones Ql (U) Negative Normal Negative [facility] Comment on above: Order Comment: Speci men Type: URINE SPECIMEN Ordering Facility: [facility] Address: [address] [place] [address] Performed By: #### 2 4356-8 #### [facility] CLIA [id number] [address] [place] Leukocyte esterase Test strip Ql (U) Negative Normal Negative [facility] Comment on above: Order Comment: Speci men Type: URINE SPECIMEN Ordering Facility: [facility] Address: [address] [place] [address] Performed By: #### 2 4356-8 #### [facility] CLIA [id number] [address] [place] Nitrite Ql (U) Negative Normal Negative [facility] Comment on above: Order Comment: Speci men Type: URINE SPECIMEN Ordering Facility: [facility] Address: [address] [place] [address] Performed By: #### 2 4356-8 #### [facility] CLIA [id number] 1000 [place] [address] [place] pH (U) 6.0 [pH] Normal 5.0-8.0 [facility] Comment on above: Order Comment: Speci men Type: URINE SPECIMEN Ordering Facility: [facility] Address: [address] [place] [address] Performed By: #### 2 4356-8 #### [facility] CLIA [id number] 1000 [place] [address] [place] Protein (U) [Mass/Vol] Negative Normal Negative [facility] Comment on above: Order Comment: Speci men Type: URINE SPECIMEN Ordering Facility: [facility] Address: [address] [place] [address] Performed By: #### 2 4356-8 #### [facility] CLIA [id number] 1000 [place] [address] [place] RBC LM.HPF (Urine sed) [#/Area] 0-3 /HPF Normal 0-3 /HPF [facility] Comment on above: Order Comment: Speci men Type: URINE SPECIMEN Ordering Facility: [facility] Address: [address] [place] [address] Performed By: #### 2 4356-8 #### [facility] CLIA [id number] 1000 [place] [address] [place] Specific gravity (U) [Rel density] >=1.030 High 1.005-1.030 [facility] Comment on above: Order Comment: Speci men Type: URINE SPECIMEN Ordering Facility: [facility] Address: [address] [place] [address] Performed By: #### 2 4356-8 #### [facility] CLIA [id number] [address] [place] Urobilinogen Ql (U) 0.2 EU/dL Normal 0.2-1.0 EU/dL [facility] Comment on above: Order Comment: Speci men Type: URINE SPECIMEN Ordering Facility: [facility] Address: [address] [place] [address] Performed By: #### 2 4356-8 #### [facility] CLIA [id number] [address] [place] WBC LM.HPF (Urine sed) [#/Area] 0-5 /HPF Normal 0-5 /HPF [facility] Comment on above: Order Comment: Speci men Type: URINE SPECIMEN Ordering Facility: [facility] Address: [address] [place] [address] Performed By: #### 2 4356-8 #### [facility] CLIA [id number] [address] [place] Serum human chorionic gonado tropin detection for pregnancyOrdered By: Aaliyah Borrego on 07-08-2024 HCG ( test) Ql 83 mIU/mL High <[address] [facility] Comment on above: Gestational Age0.2-1 Week: 5-50 mIU/mL1-2 Weeks: 50-500 mIU/mL2-3 Weeks: 100-5000 mIU/mL3-4 Weeks: 500-10,000 mIU/mL4-5 Weeks:1000-50,000 mIU/mL5-6 Weeks: 10,000-100,000 mIU/mL6-8 Weeks: 15,000-200,000 mIU/mL2-3 Months:10,000-100,000 mIU/mL hCG Titer Quant., Serumon HCG QUANT. 83 mIU/mL High <9 non-preg [facility] Comment on above: Result Comment: Gest ational Age 0.2-1 Week: 5-50 mIU/mL 1-2 Weeks: 50-500 mIU/mL 2-3 Weeks: 100-5000 mIU/mL 3-4 Weeks: 500-10,000 mIU/mL 4-5 Weeks:1000-50,000 mIU/mL 5-6 Weeks: 10,000-100,000 mIU/mL 6-8 Weeks: 15,000-200,000 mIU/mL 2-3 Months:10,000-100,000 mIU/mL Performed By: #### L 501.0900, L100.0100, L500.4050 #### [facility] [address] [place], [address] Serum human chorionic gonado tropin detection for pregnancyOrdered By: Aaliyah Borrego on 07-06-2024 HCG ( test) Ql 36 mIU/mL High <[address] [facility] Comment on above: Gestational Age0.2-1 Week: 5-50 mIU/mL1-2 Weeks: 50-500 mIU/mL2-3 Weeks: 100-5000 mIU/mL3-4 Weeks: 500-10,000 mIU/mL4-5 Weeks:1000-50,000 mIU/mL5-6 Weeks: 10,000-100,000 mIU/mL6-8 Weeks: 15,000-200,000 mIU/mL2-3 Months:10,000-100,000 mIU/mL hCG Titer Quant., Serumon HCG QUANT. 36 mIU/mL High <9 non-preg [facility] Comment on above: Result Comment: Gest ational Age 0.2-1 Week: 5-50 mIU/mL 1-2 Weeks: 50-500 mIU/mL 2-3 Weeks: 100-5000 mIU/mL 3-4 Weeks: 500-10,000 mIU/mL 4-5 Weeks:1000-50,000 mIU/mL 5-6 Weeks: 10,000-100,000 mIU/mL 6-8 Weeks: 15,000-200,000 mIU/mL 2-3 Months:10,000-100,000 mIU/mL Performed By: #### L 700.8000 ####[facility] [id number] [place], [address] Ear Cerumen Removalon 2024 BIPIN Estrada 04/12/2024 9:40 AM Ear Cerumen Removal Date/Time: 04/12/2024 9:00 AM Performed by: BIPIN Estrada Authorized by: Domenico Long APRN-IOANA [facility] Work Phone: [facility] Work Phone: HCG ( test) Ql (U)o n 04-12-2024 Interpretation and review of laboratory results Normal [facility] Work Phone: Preg Test, Ur Negative Negative [facility] Work Phone: [facility] Work Phone: POCT Covid-19 Rapid Antigeno n 04-12-2024 SARS-CoV-2 (COVID-19) Ag IA.rapid Ql (Resp) Positive Abnormal Presumptive negative test for SARS-CoV-2 (no antigen detected) [facility] Work Phone: POCT Influenza A/B manually resultedon 04-12-2024 Interpretation and review of laboratory results Normal [facility] Work Phone: POC Rapid Influenza A Negative Negative [facility] Work Phone: POC Rapid Influenza B Negative Negative [facility] Work Phone: [facility] Work Phone: SARS-CoV-2 (COVID-19) Ag IA. rapid Ql (Resp)on 04-12-2024 Interpretation and review of laboratory results Abnormal [facility] Work Phone: [facility] Work Phone: XR Chest 2 Viewson No active disease in the chest identified. MACRO: None Signed by: Altaf Grullon 04/12/2024 9:10 AM Dictation workstation: [id number] MMODAL Interpreted By: Altaf Grullon, STUDY: XR CHEST 2 VIEWS; 04/12/2024 9:06 am INDICATION: Signs/Symptoms:coug h. COMPARISON: None. ACCESSION NUMBER(S): [id number] ORDERING CLINICIAN: DOMENICO LONG FINDINGS: The lungs are clear without pleural effusion. Normal heart size, mediastinum, ya, and pulmonary vasculature. [facility] Altaf Grullon MD - 04/12/2024 Interpreted By: Altaf Grullon, STUDY: XR CHEST 2 VIEWS; 04/12/2024 9:06 am INDICATION: Signs/Symptoms:coug h. COMPARISON: None. ACCESSION NUMBER(S): [id number] ORDERING CLINICIAN: DOMENICO LONG FINDINGS: The lungs are clear without pleural effusion. Normal heart size, mediastinum, ya, and pulmonary vasculature. IMPRESSION: No active disease in the chest identified. MACRO: None Signed by: Altaf Grullon 04/12/2024 9:10 AM Dictation workstation: [id number] [facility] Work Phone: Radiology Study observation (narrative) [facility] Work Phone: XR Chest 2 ViewsOrdered By: Altaf Grullon on 04-12-2024 [facility] Work Phone: PROGESTERONE 4317on 12- 24 PROGESTERONE 15.0 ng/mL Normal . [facility] Comment on above: Order Comment: N Result Comment: Foll icular phase 0.1 - 0.9 Luteal phase 1.8 - 23.9 Ovulation phase 0.1 - 12.0 First trimester 11.0 - 44.3 Second trimester 25.4 - 83.3 Third trimester 58.7 - 214.0 Postmenopausal 0.0 - 0.1 Performed at: [address] [id number] [employer] Helper: Juan M Nielsen PhD, Phone: [phone] Performed By: #### L 501.0900, L100.0100, L500.4050 #### [facility] [address] [place], [address] PROGESTERONE 4317on 02-03-20 24 PROGESTERONE 17.6 ng/mL Normal . [facility] Comment on above: Order Comment: 23 da y progesterone Result Comment: Foll icular phase 0.1 - 0.9 Luteal phase 1.8 - 23.9 Ovulation phase 0.1 - 12.0 First trimester 11.0 - 44.3 Second trimester 25.4 - 83.3 Third trimester 58.7 - 214.0 Postmenopausal 0.0 - 0.1 Performed at: [address] [id number] [employer] Helper: Juan M Nielsen PhD, Phone: [phone] Performed By: #### L 801.2600 ####[facility] [id number] [place], [address] Chlamydia trachomatis rRNA d etection by probe and target amplification methodOrdered By: Esperanza Dotson on 07-02-2023 C. trachomatis rRNA PETER+probe Ql (Unsp spec) Negative Negative [facility] Gram stain for investigation of transfusion reactionOrdered By: Esperanza Dotson on 07-02-2023 Microscopic observation Gram stain Nom (Unsp spec) [facility] - Microbiology an d Antimicrobial susceptibilityOrdered By: Esperanza Dotson on 07-02-2023 N. gonorrhoeae DNA PETER+probe Ql (Unsp spec) Negative Negative [facility] Comment on above: Performed at: =G - L [address] [place], [place] [id number] Director: Jada Mayberry MD, Phone: [phone] No Panel InformationOrdered By: Esperanza Dotson on 07-02-2023 Genital Culture [facility] No Panel Informationon 07-01 POC Bacterial Vaginitis (Rapid) Negative [facility] POC Trich[facility] (Rapid) [facility]23 Order Number [id number] [facility] ([place]) Comment on above: Performed By: #### 9 [address] #### [address] Test Name echinoccus granulosis ab Normal [facility] ([place]) Comment on above: Performed By: #### 9 [address] #### [address] Test Source see report [facility]) Comment on above: Performed By: #### 9 07673 #### [address] 02-21-2023 [facility] Test Result COMMENT Normal [facility]) Comment on above: Result Comment: Test Ordered: [id number] Echinococcus Antibody Echinococcus Antibody Equivocal Reference Range: Negative [facility]formed At: [facility] [address] [place] [id number] Gia Mcgowan PhD Ph:[phone] Performed At: [facility] [id number] Eric Chavira MD Ph:[phone] Performed By: #### 9 [address]606 #### [address] [address] .Auto Diffon 02-15-2023 Basophil, Absolute 0.0 10 3/mcL Normal 0.0-0.2 [facility]) Comment on above: Performed By: #### A TITI, W, ADIFF, GFR, CBC, LIP, CMP #### [address] [address] Basophils/100 WBC (Bld) 0.3 % Normal 0.0-2.5 [facility] ([place]) Comment on above: Performed By: #### A YAN WALLS, ADIFF, GFR, CBC, LIP, CMP #### [address] [address] Eosinophil, Absolute 0.0 10 3/mcL Normal 0.0-0.4 [facility] ([place]) Comment on above: Performed By: #### A YAN WALLS, ADIFF, GFR, CBC, LIP, CMP #### [address] [address] Eosinophils/100 WBC (Bld) 0.7 % Normal 0.0-7.0 [facility] ([place]) Comment on above: Performed By: #### A YAN WALLS, ADIFF, GFR, CBC, LIP, CMP #### [address] [address] Lymphocyte, Absolute 2.1 10 3/mcL Normal 0.8-3.9 [facility] ([place]) Comment on above: Performed By: #### A YAN WALLS, ADIFF, GFR, CBC, LIP, CMP #### [address] [address] Lymphocytes/100 WBC (Bld) 29.5 % Normal 10.0-50.0 [facility] ([place]) Comment on above: Performed By: #### A YAN WALLS, SCOTTIFF, GFR, CBC, LIP, CMP #### [address] [address] Monocyte, Absolute 0.4 10 3/mcL Normal 0.2-1.0 [facility] ([place]) Comment on above: Performed By: #### A YAN WALLS, ADIFF, GFR, CBC, LIP, CMP #### [address] [address] Monocytes/100 WBC (Bld) 5.5 % Normal 1.7-13.0 [facility] ([place]) Comment on above: Performed By: #### A YAN WALLS, ADIFF, GFR, CBC, LIP, CMP #### [address] [address] Neutrophils/100 WBC (Bld) 64.0 % Normal 37.0-80.0 [facility] ([place]) Comment on above: Performed By: #### A YAN WALLS, ANIA, GFR, CBC, LIP, CMP #### [address] [address] .GFRon 02-15-2023 GFR 149 ml/min/1.73sqm Normal [facility] ([place]) Comment on above: Result Comment: GFR Population [...] meters Performed By: #### A YAN WALLS, ANIA, GFR, CBC, LIP, CMP #### [address] [address] GFR Non- 123 ml/min/1.73sqm Normal [facility] ([place]) Comment on above: Result Comment: GFR Population [...] WALLS, ADIFF, GFR, CBC, LIP, CMP #### [place] [address] .MDWon 02-15-2023 Monocyte Distribution Width 18.17 Normal 0.00-20.00 [facility] ([place]) Comment on above: Result Comment: For ED adult patients suspected of sepsis, MDW<=20.0 does not rule out sepsis or risk of sepsis Performed By: #### A YAN WALLS, ADIFF, GFR, CBC, LIP, CMP #### [place] [address] .NEUABSon 02-15-2023 Neutrophil, Absolute 4.5 10 3/mcL Normal 2.9-6.2 [facility] ([place]) Comment on above: Performed By: #### A YAN WALLS, ADIFF, GFR, CBC, LIP, CMP #### [place] [address] .Urinalysis Microscopic (AO) on 02-15-2023 UA Amorphus Trace Normal [facility] ([place]) Comment on above: Performed By: #### 9 [address] #### [place] [address] UA Bacteria Trace Abnormal [facility] ([place]) Comment on above: Performed By: #### 9 78716 #### [place] [address] UA Mucous 4+ /hpf Normal [facility] ([place]) Comment on above: Performed By: #### 9 61938 #### [place] [address] UA RBC None Seen Normal None Seen [facility] ([place]) Comment on above: Performed By: #### 9 [address]79[address] #### [place] [address] UA Squam Epithelial 5-10 Abnormal None Seen [facility] ([place]) Comment on above: Performed By: #### 9 20298 #### [place] [address] UA WBC 0-5 Abnormal None Seen [facility] ([place]) Comment on above: Performed By: #### 9 10698 #### [place] [id number] CBCon 02-15-2023 Erythrocyte distribution width (RBC) [Ratio] 12.6 % Normal 11.5-14.5 [facility] ([place]) Comment on above: Performed By: #### A YAN WALLS, SCOTTIFF, GFR, CBC, LIP, CMP #### [place] [address] Hematocrit (Bld) [Volume fraction] 45.3 % Normal 37.0-47.0 [facility] ([place]) Comment on above: Performed By: #### A YAN WALLS, ANIA, GFR, CBC, LIP, CMP #### [place] [address] Hgb 15.3 G/dL Normal 12.0-16.0 [facility] ([place]) Comment on above: Performed By: #### A YAN WALLS, ANIA, GFR, CBC, LIP, CMP #### [place] [address] MCH (RBC) [Entitic mass] 28.9 pg Normal 27.0-31.2 [facility] ([place]) Comment on above: Performed By: #### A YAN WALLS, ANIA, GFR, CBC, LIP, CMP #### [place] [address] MCHC 33.7 G/dL Normal 33.0-37.0 [facility] ([place]) Comment on above: Performed By: #### A YAN WALLS, ANIA, GFR, CBC, LIP, CMP #### [place] [id number] MCV (RBC) [Entitic vol] 85.7 fL Normal 80.0-94.0 A [facility] ([place]) Comment on above: Performed By: #### A YAN WALLS, SCOTTIFF, GFR, CBC, LIP, CMP #### [address] [address] Platelet 250 10 3/mcL Normal 130-400 [facility] ([place]) Comment on above: Performed By: #### A YAN WALLS, ANIA, GFR, CBC, LIP, CMP #### [address] [address] Platelet mean volume (Bld) [Entitic vol] 9.8 fL Normal 7.4-10.4 [facility] ([place]) Comment on above: Performed By: #### A YAN WALLS, ANIA, GFR, CBC, LIP, CMP #### [address] [address] RBC 5.29 10 6/mcL Normal 4.20-5.40 [facility] ([place]) Comment on above: Performed By: #### A YAN WALLS, ANIA, GFR, CBC, LIP, CMP #### [address] [address] WBC 7.0 10 3/mcL Normal 4.6-10.8 [facility] ([place]) Comment on above: Performed By: #### A YAN WALLS, ANIA, GFR, CBC, LIP, CMP #### [address] [address] CMPon 02-15-2023 Albumin Level 4.5 G/dL Normal 3.5-5.0 [facility] ([place]) Comment on above: Performed By: #### A YAN WALLS, ANIA, GFR, CBC, LIP, CMP #### [address] [address] Albumin/Globulin [Mass ratio] 1.2 {ratio} Normal 1.1-2.5 [facility] ([place]) Comment on above: Performed By: #### A YAN WALLS, ANIA, GFR, CBC, LIP, CMP #### [address] [address] ALP [Catalytic activity/Vol] 101 U/L Normal 40-135 [facility] ([place]) Comment on above: Performed By: #### A YAN WALLS, ANIA, GFR, CBC, LIP, CMP #### [address] [address] ALT [Catalytic activity/Vol] 29 U/L Normal 14-59 [facility] ([place]) Comment on above: Performed By: #### A YAN WALLS, ANIA, GFR, CBC, LIP, CMP #### [address] [address] AST [Catalytic activity/Vol] 15 U/L Normal 10-40 [facility] ([place]) Comment on above: Performed By: #### A YAN WALLS, ANIA, GFR, CBC, LIP, CMP #### [address] [address] Bili Total 0.6 mg/dL Normal 0.2-1.0 [facility] ([place]) Comment on above: Result Comment: Use of this assay is not recommended for patients undergoing treatment with eltrombopag due to the potential for falsely elevated results. Performed By: #### A YAN WALLS, ANIA, GFR, CBC, LIP, CMP #### [address] [address] BUN/Creatinine Ratio 12 ratio Normal 7-27 [facility] ([place]) Comment on above: Performed By: #### A YAN WALLS, ANIA, GFR, CBC, LIP, CMP #### [address] [address] Calcium [Mass/Vol] 10.0 mg/dL Normal 8.4-10.2 [facility] ([place]) Comment on above: Performed By: #### A YAN WALLS, SCOTTIFF, GFR, CBC, LIP, CMP #### [address] [address] Chloride [Moles/Vol] 98 mmol/L Normal 98-107 [facility] ([place]) Comment on above: Performed By: #### A YAN WALLS, ADIFF, GFR, CBC, LIP, CMP #### [address] [address] CO2 [Moles/Vol] 25 mmol/L Normal 22-29 [facility] ([place]) Comment on above: Performed By: #### A YAN WALLS, ANIA, GFR, CBC, LIP, CMP #### [address] [address] Creatinine [Mass/Vol] 0.59 mg/dL Normal 0.55-1.02 [facility] ([place]) Comment on above: Performed By: #### A YAN WALLS, SCOTTIFF, GFR, CBC, LIP, CMP #### [address] [address] Electrolyte Balance 11.0 mEq/L Normal 4.0-15.0 [facility] ([place]) Comment on above: Performed By: #### A YAN WALLS, ANIA, GFR, CBC, LIP, CMP #### [address] [address] Globulin 3.8 G/dL Normal [facility] ([place]) Comment on above: Performed By: #### A YAN WALLS, ANIA, GFR, CBC, LIP, CMP #### [address] [address] Glucose [Mass/Vol] 101 mg/dL Normal 70-105 [facility] ([place]) Comment on above: Performed By: #### A YAN WALLS, ANIA, GFR, CBC, LIP, CMP #### [address] [address] Potassium [Moles/Vol] 3.8 mmol/L Normal 3.5-5.1 [facility] ([place]) Comment on above: Performed By: #### A YAN WALLS, SCOTTIFF, GFR, CBC, LIP, CMP #### [address] [address] Sodium [Moles/Vol] 134 mmol/L Low 136-145 [facility] ([place]) Comment on above: Performed By: #### A YAN WALLS, SCOTTIFF, GFR, CBC, LIP, CMP #### [place] [address] Total Protein 8.3 G/dL High 6.4-8.2 [facility] ([place]) Comment on above: Performed By: #### A YAN WALLS, ADUZMA, GFR, CBC, LIP, CMP #### [address] [place] [address] [place], [place] [address] Urea nitrogen [Mass/Vol] 7 mg/dL Normal 7-18 [facility] ([place]) Comment on above: Performed By: #### A YAN WALLS, ADIFF, GFR, CBC, LIP, CMP #### [facility] [place] [address] [place], [place] [address] CT ABD/PELVIS W/ IV CONTRAST ONLYon 02-15-2023 CT ABD/PELVIS W/ IV CONTRAST ONLY ORIGINAL EXAMINATION: CT OF THE ABDOMEN AND PELVIS WITH MFJMURGG88/9/2023 1:[address] ABDOMEN/PELVIS WITH CONTRAST TECHNIQUE: [...] 02/15/2023 1:35:36 PM Ordering Provider: AUGIE HANNAH [facility] ([place]) LABORATORYOrdered By: SYSTEM SYSTEM on 02-15-2023 Albumin [...] Bilirubin [Mass/Vol] 0.6 mg/dL Normal 0.2 - 1 .0 mg/dL AO ADM SS Comment on above: Interpretive Data: U se of this assay is not recommended for patients undergoing treatment with eltrombopag due to the potential for falsely elevated results. Calcium [Mass/Vol] 10.0 mg/dL Normal 8.4 - 10. 2 mg/dL AO ADM SS Chloride [Moles/Vol] 98 mmol/L Normal 98 - 10 7 mmol/L AO ADM SS CO2 [Moles/Vol] 25 mmol/L Normal 22 - 29 mmol/L AO ADM SS Creatinine [Mass/Vol] 0.59 mg/dL Normal 0.55 [...] MCH (RBC) [Entitic mass] 28.9 pg Normal 27. 0 - 31.2 pg AO Workflow SS MCHC [...] [Mass/Vol] 7 mg/dL Normal 7 - 18 mg/d L AO ADM SS Urea nitrogen/Creatinine [Mass ratio] [...] 02-15-2023 Lipase Level 18 U/L Normal 16-77 [facility] ([place]) Comment on above: Performed By: #### A TITI, MDW, ADIFF, GFR, CBC, LIP, CMP #### [address] [address] PREGUon 02-15-2023 HCG ( test) Ql (U) Negative Normal [facility] ([place]) Comment on above: Performed By: #### P REGU, UA, UAMICAO #### [place] [address] test (u) int Not detected Invalid Interpretation Code [facility] ([place]) Comment on above: Performed By: #### P REGU, UA, UAMICAO #### [address] [address] UAon 02-15-2023 Color (U) Yellow Normal [facility] ([place]) Comment on above: Performed By: #### 9 [address] #### [place] [address] Glucose (U) [Mass/Vol] Negative Normal Negative [facility] ([place]) Comment on above: Performed By: #### 9 [address] #### [address] [address] Ketones Ql (U) Negative Normal Negative [facility] ([place]) Comment on above: Performed By: #### 9 [address] #### [address] [address] UA Appear Cloudy Abnormal Clear [facility] ([place]) Comment on above: Performed By: #### 9 [address]62 #### [address] [address] UA Blood Negative Normal Negative [facility] ([place]) Comment on above: Performed By: #### 9 30197 #### [address] [place] [address] UA Leuk Est Negative Normal Negative [facility] ([place]) Comment on above: Performed By: #### 9 35829 #### [address] [address] UA Nitrite Negative Normal Negative [facility] ([place]) Comment on above: Performed By: #### 9 42422 #### [address] [address] UA pH 6.0 Normal 5.0 - 8.0 [facility] ([place]) Comment on above: Performed By: #### 9 76199 #### [address] [address] UA Protein Negative Normal Negative [facility] ([place]) Comment on above: Performed By: #### 9 53226 #### [address] [address] UA Spec Grav 1.025 Normal 1.015-1.025 [facility] ([place]) Comment on above: Performed By: #### 9 45662 #### [address] [address] UA Specimen Type Clean Catch Normal [facility] ([place]) Comment on above: Performed By: #### 9 02845 #### [address] [address] UA Urobilinogen 0.2 E.U./dL Normal 0.2-1.0 [facility] ([place]) Comment on above: Performed By: #### 9 585[address] #### [address] [address] Urobilinogen (U) [Mass/Vol] Negative Normal Negative [facility] ([place]) Comment on above: Performed By: #### 9 [address] #### [address] [address] XR CHEST 2 VIEWSon 3 XR CHEST [...] Sign Date: 02/15/2023 1:26:39 PM Ordering Provider: MEHRDAD ZAMBRANO [facility] ([place]) DIGIT OF FOOT LEFT 5THon DIGIT OF [...] articular extension to the PIP joint. Normal [facility] LUMBAR WITH OBLIQUESon 05-30 LUMBAR WITH [...] acute osseous abnormality. 2. Normal alignment. Normal [facility] LUMBAR WITH OBLIQUESon 05-01 LUMBAR WITH [...] represent constipation in proper clinical context. Normal [facility] BACTERIAL VAGINOSIS AMPLIFIC ATIONon 02-06-2022 Bacterial Vaginosis Amplification High () [facility] Bact Vag Ampon 02-06-2022 Bact Vag Amp High () [facility] Comment on above: Result Comment: INFC E Result: Positive for bacterial vaginosis INFCE Result Reference Range: Negative for bacterial INFCE Result Reference Range: vaginosis INFCE Result Abnormal Flag: A Test Performed By: [facility] [employer] [address] [place] [address] Flying I Instructor: Sathish Gillespie III, M.D. C. trachomatis+N. gonorrhoea e DNA PETER+probe Ql (Unsp spec)on 02-06-2022 Chlamydia Amplification [facility] GC Amplification [facility] GC/Chlmydia Ampon 02-06-2022 Chlamydia Amp [facility] Comment on above: Result Comment: INFC E Result: Negative for Chlamydia trachomatis by INFCE Result: amplification INFCE Result Reference Range: Negative for Chlamydia INFCE Result Reference Range: trachomatis by amplificaton SOURCE: GENITAL Test Performed By: [facility] [address] [place] [address] Flying I Instructor: Sathish Gillespie III, M.D. GC Amplificatin [facility] Comment on above: Result Comment: INFC E Result: Negative for Neisseria gonorrhoeae by INFCE Result: amplification INFCE Result Reference Range: Negative for Neisseria INFCE Result Reference Range: gonorrhoeae by amplification T VAGINALIS AMPLIFICATIONon 02-06-2022 T. vaginalis Amplif [facility] URINE CULTUREon 02-06-2022 Bacteria identified Cx Nom (U) XXX [facility] Trich Vaginalison 02-05-2022 Trich Vaginalis Normal [facility] Comment on above: Result Comment: INFC E Result: Negative for Trichomonas vaginalis by INFCE Result: amplification INFCE Result Reference Range: Negative for Trichomonas INFCE Result Reference Range: vaginalis by amplification SOURCE: GENITAL Test Performed By: [facility] [employer] [address] [place] [address] Flying I Instructor: Sathish Gillespie III, M.D. HCG QUAL UR B/Oon 2022 status Negative neg - pos [facility] Quality Check Yes [facility] UA DIP B/Oon 2022 Bilirubin, Urine Negative Neg [facility] Color/Appearance YELLOW/CLEAR [facility] Glucose Ql (U) Negative Neg mg/dL [facility] Hemoglobin/Blood,Ur Negative Neg [facility] Ketones Ql (U) Negative Neg [facility] Leukocytes Negative Neg [facility] Nitrite Ql (U) Negative Neg [facility] pH (U) 5.5 [pH] 4.5 - 8.0 [facility] Protein.monoclonal (U) [Mass/Vol] Negative Neg mg/dL [facility] Specific Peggs, Ur 1.030 1.005 - 1.030 C [facility] Urobilinogen, Urine 0.2 EU Normal ( <1.1) EU [facility] Urine Cultureon 2022 Bacteria identified Cx Nom (U) CULTURE, URINE MIXED MICROBIOTA <10,000 CFU/ml Mixed microbiota Streptococcus agalactiae (Group B streptococcus) was identified in this specimen, which is clinically relevant if the individual is . Insignificant colony count. No further workup. Urine, Midstream clean catch SOURCE: URINE Test Performed By: [facility] [address] [place] [address] Flying I Instructor: Sathish Gillespie III, M.D. See Below Normal [facility] CBC W Auto Differential pane l (Bld)on 09-12-2021 Basophils (Bld) [#/Vol] 0.01 10*3/uL Normal <=0.70 [facility] Comment on above: Performed By: #### 5 7021-8 #### [address] [place] [address] Chef French - Mary GAUTAM [id number] Basophils/100 WBC (Bld) 0.2 % Normal <=2.0 [facility] Comment on above: Performed By: #### 5 7021-8 #### [facility] [address] [facility] [address] Isabel [place] [address] Chef French - Mary GAUTAM [id number] Eosinophils (Bld) [#/Vol] 0.06 10*3/uL Normal <=0.70 [facility] Comment on above: Performed By: #### 5 7021-8 #### [place] [address] Chef French - Mary PORTILLOIA [id number] Eosinophils/100 WBC (Bld) 0.9 % Normal <=10.0 [facility] Comment on above: Performed By: #### 5 7021-8 #### [facility] [address] [place], [place] [address] [place] [address] Chef French - Mary PORTILLOIA [id number] Erythrocyte distribution width (RBC) [Entitic vol] 38.1 fL Normal 36.4-46.3 [facility] Comment on above: Performed By: #### 5 7021-8 #### [address] [place] [address] Chef French - Mary PORTILLOIA [id number] Hematocrit (Bld) [Volume fraction] 41.2 % Normal 37.0-47.0 [facility] Comment on above: Performed By: #### 5 7021-8 #### [address] [place] [address] Chef French - Mary PORTILLOIA [id number] Hemoglobin (Bld) [Mass/Vol] 14.1 g/dL Normal 12.0-16.0 [facility] Comment on above: Performed By: #### 5 7021-8 #### [place] [address] [place] [address] Chef French - Mary PORTILLOIA [id number] Immature granulocytes (Bld) [#/Vol] 0.03 10*3/uL Normal <=0.10 [facility] Comment on above: Performed By: #### 5 7021-8 #### [address] [place] [address] Chef French - Mary PORTILLOIA [id number] Immature granulocytes/100 WBC (Bld) 0.50 % Normal <=1.50 [facility] Comment on above: Performed By: #### 5 7021-8 #### [address] [place] [address] Chef French - Mary Parra CLIA [id number] Lymphocytes (Bld) [#/Vol] 2.28 10*3/uL Normal 1.20-3.40 [facility] Comment on above: Performed By: #### 5 7021-8 #### [address] [place] [address] Chef French - Mary PORTILLOIA [id number] Lymphocytes/100 WBC (Bld) 35.4 % Normal 20.0-40.0 [facility] Comment on above: Performed By: #### 5 7021-8 #### [address] [place] [address] Chef French - Mary PORTILLOIA [id number] MCH (RBC) [Entitic mass] 29.3 pg Normal 27.0-31.0 [facility] Comment on above: Performed By: #### 5 7021-8 #### [address] [place] [address] Chef French - Mary PORTILLOIA [id number] MCHC (RBC) [Mass/Vol] 34.2 g/dL Normal 32.0-36.0 [facility] Comment on above: Performed By: #### 5 7021-8 #### [address] [place] [address] Chef French - Mary PORTILLOIA [id number] MCV (RBC) [Entitic vol] 85.7 fL Normal 80.0-100.0 [facility] Comment on above: Performed By: #### 5 7021-8 #### [address] [place] [address] Chef French - Mary PORTILLOIA [id number] Monocytes (Bld) [#/Vol] 0.36 10*3/uL Normal 0.10-0.60 [facility] Comment on above: Performed By: #### 5 7021-8 #### [address] [place] [address] Chef French - Mary Parra CLIA [id number] Monocytes/100 WBC (Bld) 5.6 % Normal <=8.0 [facility] Comment on above: Performed By: #### 5 7021-8 #### [facility] [address] [place] [address] Chef French - Mary PORTILLOIA [id number] Neutrophils (Bld) [#/Vol] 3.70 10*3/uL Normal 1.40-6.50 [facility] Comment on above: Performed By: #### 5 7021-8 #### [facility] [address] [place] [address] Chef French - Mary PORTILLOIA [id number] Neutrophils/100 WBC (Bld) 57.4 % Normal 50.0-70.0 [facility] Comment on above: Performed By: #### 5 7021-8 #### [address] [place] [address] Chef French - Mary PORTILLOIA [id number] Nucleated RBC (Bld) [#/Vol] 0.00 10*3/uL Normal <=0.10 [facility] Comment on above: Performed By: #### 5 7021-8 #### [address] [place]. [place] [address] Chef French - Mary PORTILLOIA [id number] Platelet mean volume (Bld) [Entitic vol] 11.9 fL Normal 9.0-13.0 [facility] Comment on above: Performed By: #### 5 7021-8 #### [address] [place] [address] Chef French - Mary PORTILLOIA [id number] Platelets (Bld) [#/Vol] 210 10*3/uL Normal 130-400 [facility] Comment on above: Performed By: #### 5 7021-8 #### [address] [facility] [place]. [place] [address] Chef French - Mary PORTILLOIA [id number] RBC (Bld) [#/Vol] 4.81 10*6/uL Normal 4.00-6.30 [facility] Comment on above: Performed By: #### 5 7021-8 #### [address] [place], [place] [address] Chef French - Mary GAUTAM [id number] WBC (Bld) [#/Vol] 6.44 10*3/uL Normal 4.80-10.80 [facility] Comment on above: Performed By: #### 5 7021-8 #### [facility] [address] [place] [address] Chef French - Mary GAUTAM [id number] CHEST AND LATERAL OR 2 VIEWS on [...] No acute cardiopulmonary process is identified. Normal [facility] Comprehensive metabolic 2000 panelon 09-12-2021 Albumin [Mass/Vol] 3.6 g/dL Normal 3.4-5.0 [facility] Comment on above: Performed By: #### 1 1579-0, 55276-7, 97313-1, 79459-7 ####[facility], [place] [address]Trckvqv Director - Mary Shaffer [id number] ALP [Catalytic activity/Vol] 82 U/L Normal 50-136 [facility] Comment on above: Performed By: #### 1 1579-0, 98018-9, 79718-1, 90445-7 ####[facility], [place] [address]Zptnwic Director - Mary Shaffer [id number] ALT [Catalytic activity/Vol] 19 U/L Normal 14-59 [facility] Comment on above: Performed By: #### 1 1579-0, 32991-6, 21021-3, 95376-0 ####[facility], [place] [address]Qnpbcwl Director - Mary Shaffer [id number] Anion gap [Moles/Vol] 3.0 mmol/L Normal <=15.0 [facility] Comment on above: Performed By: #### 1 9-0, , , ####[facility], [place] [address]Yxkpvwc Director - Mary ParraCLMILO [id number] AST [Catalytic activity/Vol] 13 U/L Low 15-37 [facility] Comment on above: Performed By: #### 1 1579-0, , , ####[facility], [place] [address]Igtlair Director - Mary ParraCLMILO [id number] Bilirubin [Mass/Vol] 0.4 mg/dL Normal 0.2-1.0 [facility] Comment on above: Performed By: #### 1 9-0, , , ####[facility], [place] [address]Jsqkmdc Director - Mary Shaffer [id number] Calcium [Mass/Vol] 8.7 mg/dL Normal 8.5-10.1 [facility] Comment on above: Performed By: #### 1 9-0, , , ####[facility], [place] [address]Kmvrjsj Director - Maryjazmine HernandezrellCLIA [id number] Chloride [Moles/Vol] 105 mmol/L Normal 98-107 [facility] Comment on above: Performed By: #### 1 9-0, , , ####[facility], [place] [address]Hsijqhx Director - Mary DavidrellCLIA [id number] CO2 [Moles/Vol] 26 mmol/L Normal 21-32 [facility] Comment on above: Performed By: #### 1 9-0, , , ####[facility], [place] [address] [place] [address] Mary Shaffer [id number] Creatinine [Mass/Vol] 0.40 mg/dL Low 0.51-0.95 [facility] Comment on above: Performed By: #### 1 9-0, , , ####[facility] [facility] [id number] GFR/1.73 sq M.predicted MDRD (S/P/Bld) [Vol rate/Area] mL/min/{1.73_m2} Normal >=59 [facility] Comment on above: Performed By: #### 1 9-0, , , ####[facility] [facility] [id number] Glucose [Mass/Vol] 99 mg/dL Normal 74-106 [facility] Comment on above: Performed By: #### 1 9-0, , , ####[place] [address], [place] [address] [place] [address] [facility] [id number] HGFR GLOMERULAR FILTRATION RATE INTERPRETATION~The eGFR is [...] months, with or without kidney damage.~ Normal [facility] Comment on above: Performed By: #### 1 1579-0, 01950-5, 88304-5, 21855-9 ####[facility] Director - Mary Shaffer [id number] Potassium [Moles/Vol] 3.7 mmol/L Normal 3.5-5.1 [facility] Comment on above: Performed By: #### 1 1579-0, 00482-8, , 63542-5 ####[facility] Director - Mary Shaffer [id number] Protein [Mass/Vol] 6.8 g/dL Normal 6.4-8.2 [facility] Comment on above: Performed By: #### 1 1579-0, , , 90591-2 ####[facility] Director - Mary Shaffer [id number] Sodium [Moles/Vol] 134 mmol/L Low 136-145 [facility] Comment on above: Performed By: #### 1 1579-0, , , 14245-2 ####[facility] Director - Mary Shaffer [id number] Urea nitrogen [Mass/Vol] 7 mg/dL Normal 7-17 [facility] Comment on above: Performed By: #### 1 1579-0, 71475-6, , 35885-1 ####[facility] Director - Mary Shaffer [id number] Drugs identified Screen Nom (U)on 09-12-2021 Amphetamines Ql (U) Not detected Normal CUTOFF = 500 [facility] Comment on above: Performed By: #### 1 2286-1 #### [facility] [address] [place] [address] Chef French - Mary GAUTAM [id number] Barbiturates Ql (U) Not detected Normal CUTOFF = 200 [facility] Comment on above: Performed By: #### 1 2286-1 #### [facility] [address] [place] [address] Chef French - Mary GAUTAM [id number] Benzodiazepines Ql (U) Not detected Normal CUTOFF = 15 0 [facility] Comment on above: Performed By: #### 1 2286-1 #### [facility] [address] [place] [address] Chef French - Mary GAUTAM [id number] Cocaine Ql (U) Not detected Normal CUTOFF = 150 [facility] Comment on above: Performed By: #### 1 2286-1 #### [facility] [address] [place] [address] Chef French - Mary GAUTAM [id number] HDRUG Drugs of abuse screening provides only a preliminary analytical test result. A more specific alternate chemical method must be used in order to obtain a confimed analytical result. Clinical consideration and professional judgment should be applied to any drug of abuse test result, particularly when preliminary positive results are obtained. Normal [facility] Comment on above: Performed By: #### 1 2286-1 #### [facility] [address] [place] [address] Chef French - Mary GAUTAM [id number] Methadone Ql (U) Not detected Normal CUTOFF = 200 [facility] Comment on above: Performed By: #### 1 2286-1 #### [facility] [address] [place] [address] Chef French - Mary GAUTAM [id number] Opiates Ql (U) Not detected Normal CUTOFF = 300 [facility] Comment on above: Performed By: #### 1 2286-1 #### [facility] [address] [place] [address] Chef French - Mary GAUTAM [id number] oxyCODONE Ql (U) Not detected Normal CUTOFF = 100 [facility] Comment on above: Performed By: #### 1 2286-1 #### [facility] [address] [place] [address] Chef French - Mary PORTILLOIA [id number] Phencyclidine Ql (U) Not detected Normal CUTOFF = 25 [facility] Comment on above: Performed By: #### 1 2286-1 #### [facility] [address] [place] [address] Chef French - Mary PORTILLOIA [id number] Tetrahydrocannabinol Ql (U) Not detected Normal CUTOFF = 50 [facility] Comment on above: Performed By: #### 1 2286-1 #### [facility] [address] [place] [address] Chef French - Mary PORTILLOIA [id number] HCG ( test) Ql (U)o n 09-12-2021 Beta HCG ( test) Ql (U) Negative Normal NEGATIVE [facility] Comment on above: Performed By: #### 2 106-3 #### [facility] [address] [place] [address] Chef French - Mary PORTILLOIA [id number] #### UAR #### [facility] [address] [place] [address] Chef French - Mary PORTILLOIA [id number] Performed for [facility] [address] [address] HCG BLOODon 09-12-2021 HCG.beta subunit Qn m[IU]/mL Normal 1-3 [facility] Comment on above: Performed By: #### 1 1579-0, 30165-8, 06569-0, 09639-6 ####[place] [address] [address]Medical Director - Mary Shaffer [id number] HCG.beta subunit [facility]non 2021 [facility] The expected values were calculated [...] 6-8 weeks 15,000-200,000 2-3 months 10,000-100,000 Normal [facility] Comment on above: Performed By: #### 1 1579-0, 12699-5, 13226-1, 14292-6 ####[facility], [place] [address]Tqpsdgw Director - Mary ParraWASHINGTON COUNTY [facility] [id number] MAGNESIUMon 09-12-2021 Magnesium [Mass/Vol] 2.1 mg/dL Normal 1.6-2.6 [facility] Comment on above: Performed By: #### 1 1579-0, 29082-0, 33333-5, 32572-4 ####[facility] [address]Medical Director - Mary [facility]Map[facility] [id number] TROPONIN HIGH SENSITIVITYon 09-12-2021 TNIH <3.00 Normal <=59.00 [facility] Comment on above: Result Comment: <59 pg/mL is considered a negative result. Performed By: #### T ROP2 #### [facility] [address] [place], [place] [address] Chef French - Mary Parra CLVT [id number] TSH DL <= 0.05 mIU/L Qnon TSH Qn 1.200 uIU/mL Normal 0.358-3.740 [facility] Comment on above: Performed By: #### 1 1579-0, 90629-1, 89005-5, 75133-8 ####[facility], [place] [address]Uibsefb Director - Mary Shaffer [id number] URINALYSIS with reflex to CU LTUREon 09-12-2021 BACTERIA Normal TRACE [facility] Comment on above: Performed By: #### 2 106-3 #### [facility] [address] [place] [address] Chef French - Mary PORTILLOIA [id number] #### UAR #### [facility] [address] [place] [address] Chef French - Mayr PORTILLOIA [id number] Performed for [facility] [address] [place] [address] Bilirubin Ql (U) Negative Normal NEGATIVE [facility] Comment on above: Performed By: #### 2 106-3 #### [facility] [address] [place] [address] Chef French - Mary GAUTAM [id number] #### UAR #### [facility] [address] [place] [address] Chef French - Mary PORTILLOIA [id number] Performed for [facility] [address] [place] [address] Clarity (U) CLEAR Normal CLEAR [facility] Comment on above: Performed By: #### 2 106-3 #### [facility] [address] [place] [address] Chef French - Mary PORTILLOIA [id number] #### UAR #### [facility] [address] [place] [address] Chef French - Mary PORTILLOIA [id number] Performed for [facility] [address] [place] [address] Color (U) YELLOW Normal YELLOW [facility] Comment on above: Performed By: #### 2 106-3 #### [facility] [address] [place] [address] Chef French - Mary PORTILLOIA [id number] #### UAR #### [facility] [address] [place] [address] Chef French - Mary PORTILLOIA [id number] Performed for [facility] [address] [place] [address] Glucose Ql (U) Negative Normal NEGATIVE [facility] Comment on above: Performed By: #### 2 106-3 #### [facility] [address] [place] [address] Chef French - Mary GAUTAM [id number] #### UAR #### [facility] [address] [place] [address] Chef French - Mary GAUTAM [id number] Performed for [facility] [address] [place] [address] Hemoglobin Ql (U) Negative Normal NEGATIVE [facility] Comment on above: Performed By: #### 2 106-3 #### [facility] [address] [place] [address] Chef French - Mary GAUTAM [id number] #### UAR #### [facility] [address] [place] [address] Chef French - Mary GAUTAM [id number] Performed for [facility] [address] [place] [address] HMICRO MICROSCOPIC Normal [facility] Comment on above: Performed By: #### 2 106-3 #### [facility] [address] [place] [address] Chef French - Mary GAUTAM [id number] #### UAR #### [facility] [address] [place] [address] Chef French - Mary GAUTAM [id number] Performed for [facility] [address] [place] [address] Hyaline casts (Urine sed) [#/Area] Normal 0-8 [facility] Comment on above: Performed By: #### 2 106-3 #### [facility] [address] [place] [address] Chef French - Mary GAUTAM [id number] #### UAR #### [facility] [address] [place] [address] Chef French - Mary GAUTAM [id number] Performed for [facility] [address] [place], [place] [address] KETONE Negative Normal NEGATIVE [facility] Comment on above: Performed By: #### 2 106-3 #### [facility] [address] [place] [address] Chef French - Mary GAUTAM [id number] #### UAR #### [facility] [address] [place] [address] Chef French - Mary GAUTAM [id number] Performed for [facility] [address] [place] [address] Leukocyte esterase Test strip Ql (U) Negative Normal TRACE [facility] Comment on above: Performed By: #### 2 106-3 #### [facility] [address] [place] [address] Chef French - Mary GAUTAM [id number] #### UAR #### [facility] [address] [place] [address] Chef French - Mary GAUTAM [id number] Performed for [facility] [address] [place] [address] Nitrite Ql (U) Negative Normal NEGATIVE [facility] Comment on above: Performed By: #### 2 106-3 #### [facility] [address] [place] [address] Chef French - Mary GAUTAM [id number] #### UAR #### [facility] [address] [place] [address] Chef French - Mary GAUTAM [id number] Performed for [facility] [address] [place] [address] pH (U) 6.5 [pH] Normal 5.5-7.5 [facility] Comment on above: Performed By: #### 2 106-3 #### [facility] [address] [place] [address] Chef French - Mary GAUTAM [id number] #### UAR #### [facility] [address] [place] [address] Chef French - Mary GAUTAM [id number] Performed for [facility] [address] [place], [place] [address] Protein Ql (U) Negative Normal NEGATIVE [facility] Comment on above: Performed By: #### 2 106-3 #### [facility] [address] [place] [address] Chef French - Mary GAUTAM [id number] #### UAR #### [facility] [address] [place] [address] Chef French - Mary GAUTAM [id number] Performed for [facility] [address] [place] [address] RBC LM.HPF (Urine sed) [#/Area] Normal 0-4 [facility] Comment on above: Performed By: #### 2 106-3 #### [facility] [address] [place] [address] Chef French - Mary GAUTAM [id number] #### UAR #### [facility] [address] [place] [address] Chef French - Mary GAUTAM [id number] Performed for [facility] [address] [place] [address] Specific gravity (U) [Rel density] 1.022 Normal 1.010-1.035 [facility] Comment on above: Performed By: #### 2 106-3 #### [facility] [address] [place] [address] Chef French - Mary GAUTAM [id number] #### UAR #### [facility] [address] [place] [address] Chef French - Mary GAUTAM [id number] Performed for [facility] [address] [place] [address] SQUAMOUS EPITHELIALS Normal 0-5 [facility] Comment on above: Performed By: #### 2 106-3 #### [facility] [address] [place] [address] Chef French - Mary GAUTAM [id number] #### UAR #### [facility] [address] [place] [address] Chef French - Mary GAUTAM [id number] Performed for [facility] [address] [place] [address] Urobilinogen Qn (U) 1.0 {Jasmyne'U}/dL Normal <=1.0 [facility] Comment on above: Performed By: #### 2 106-3 #### [place] [address] [place] [address] Chef French - Mary GAUTAM [id number] #### UAR #### [place] [address] [place] [address] Chef French - Mary GAUTAM [id number] Performed for [place] [address] WBC LM.HPF (Urine sed) [#/Area] Normal 0-5 [facility] Comment on above: Performed By: #### 2 106-3 #### [place] [address] [place] [address] Chef French - Mary GAUTAM [id number] #### UAR #### [place] [address] [place] [address] Chef French - Mary GAUTAM [id number] Performed for [place] [address] [address] [place] [address] HCG.beta [facility] 2021 hCG Quant 1355 mIU/mL Normal [facility] Comment on above: Result Comment: Preg dierks Reference Ranges Negative = < 5 mIU/ml [...] method. Performed By: #### 2 1198-7 #### [facility] [address] [place] [address] Hemogram and platelets WO di fferential panel (Bld)on 07-20-2021 Basophils (Bld) [#/Vol] 0.10 10*3/uL Normal 0.00-0.20 [facility] Comment on above: Performed By: #### 2 4317-0 #### [facility] [address] [place] [address] Basophils/100 WBC (Bld) 0.6 % Normal 0.0-2.0 [facility] on above: Performed By: #### 2 4317-0 #### [facility] [address] [place] [address] Eosinophils (Bld) [#/Vol] 0.10 10*3/uL Normal 0.00-0.70 [facility] Comment on above: Performed By: #### 2 4317-0 #### [facility] [address] [place] [address] Eosinophils/100 WBC (Bld) 0.8 % Normal 0.0-7.0 [facility] Comment on above: Performed By: #### 2 4317-0 #### [facility] [address] [place] [address] Erythrocyte distribution width (RBC) [Ratio] 12.8 % Normal 11.0-14.8 [facility] Comment on above: Performed By: #### 2 4317-0 #### [facility] [address] [place] [address] Hematocrit (Bld) [Volume fraction] 40.2 % Normal 35.0-45.0 [facility] Comment on above: Performed By: #### 2 4317-0 #### [facility] [address] [place] [address] Hemoglobin (Bld) [Mass/Vol] 14.0 g/dL Normal 12.0-16.0 [facility] Comment on above: Performed By: #### 2 4317-0 #### [facility] [address] [place] [address] Lymphocytes (Bld) [#/Vol] 3.10 10*3/uL Normal 1.00-4.80 [facility] Comment on above: Performed By: #### 2 4317-0 #### [facility] [address] [place] [address] Lymphocytes/100 WBC (Bld) 33.8 % Normal 22.0-44.0 [facility] Comment on above: Performed By: #### 2 4317-0 #### [facility] [address] [place] [address] MCH 29.3 pcg Normal 27.0-34.0 [facility] Comment on above: Performed By: #### 2 4317-0 #### [facility] [address] [place] [address] MCHC (RBC) [Mass/Vol] 34.9 g/dL Normal 32.0-36.0 [facility] Comment on above: Performed By: #### 2 4317-0 #### [facility] [address] [place] [address] MCV (RBC) [Entitic vol] 84.0 fL Normal 80.0-97.0 [facility] Comment on above: Performed By: #### 2 4317-0 #### [facility] [address] [place] [address] Monocytes (Bld) [#/Vol] 0.50 10*3/uL Normal 0.00-0.90 [facility] Comment on above: Performed By: #### 2 4317-0 #### [facility] [address] [place] [address] Monocytes/100 WBC (Bld) 5.0 % Normal 0.0-12.0 [facility] Comment on above: Performed By: #### 2 4317-0 #### [facility] [address] [place] [address] Neutrophils Absolute 5.40 K/mcL Normal 1.80-7.70 [facility] Comment on above: Performed By: #### 2 4317-0 #### [facility] [address] [place] [address] Neutrophils/100 WBC (Bld) 59.8 % Normal 40.0-70.0 [facility] Comment on above: Performed By: #### 2 4317-0 #### [facility] [address] [place] [address] Platelet mean volume (Bld) [Entitic vol] 9.2 fL Normal 6.2-12.1 [facility] Comment on above: Performed By: #### 2 4317-0 #### [facility] [address] [place] [address] Platelets (Bld) [#/Vol] 219 10*3/uL Normal 142-424 [facility] Comment on above: Performed By: #### 2 4317-0 #### [facility] [address] [place] [address] RBC (Bld) [#/Vol] 4.79 10*6/uL Normal 3.80-5.10 [facility] Comment on above: Performed By: #### 2 4317-0 #### [facility] [address] [place] [address] WBC (Bld) [#/Vol] 9.0 10*3/uL Normal 4.6-10.2 [facility] Comment on above: Performed By: #### 2 4317-0 #### [facility] [address] [place] [address] Rh immune globulin screen (B ld) [Interp]on 07-20-2021 ABO group Nom (Bld) O Normal [facility] Comment on above: Performed By: #### 1 314-4 #### [facility] [address] [place] [address] Rh Type Positive Normal [facility] Comment on above: Performed By: #### 1 314-4 #### [facility] [address] [place] [address] RhIG Candidate RhIG not indicated Normal Mo [facility] Comment on above: Performed By: #### 1 314-4 #### [facility] [address] [place] [address] ABO group Nom (Bld) O [facility] Blood group antibody screen Ql Negative [facility] Rh Nom (Bld) Positive [facility] RhIG Candidate RhIG not indicated Tr [facility] HCG ( test) Ql (U)o n 07-19-2021 Preg Test, Ur Positive Abnormal Negative [facility] Comment on above: Performed By: #### 2 106-3 #### [facility] [address] [place] [address] HCG ( test) Ql (U)O rdered By: Sumi Watkins on 07-19-2021 Interpretation and review of laboratory results Abnormal [employer] HCG qualitative, urineOrdere d By: Sumi Watkins on 07-19-2021 HCG ( test) Ql (U) Positive Abnormal Negative [facility] HCG.beta subunit Qnon 2021 HCG Qn 1355 m[IU]/mL mIU/mL [facility] Comment on above: Reference Ranges Negative = [...] values obtained with a different immunoassay method. [facility] HCGQon 07-19-2021 HCGQ 2860.2 MIU/ML Normal less than 3 [facility] Comment on above: Result Comment: REFE RUTCE COMMENTS Less than 5 mIU/ML NEGATIVE FOR 5-25 mIU/ML BORDERLINE; RETEST IN 48 HOURS, IF INDICATED Greater than 25 mIU/ML POSITIVE FOR WEEKS POST LMP RANGE IN mIU/ML* 3-4 9-130 4-5 75-2600 5-6 [phone] 6-7 [phone] 7-12 [phone] 12-16 92186-839110 16-29 1400-53416 29-41 [phone] *These ranges are from published literature and may not be appropriate for all cases. When HCG levels are above 4000 mIU/ML, distinction between normal and abnormal is poor. The rate of change (doubling time) may be helpful. (Reference: NCCLS ) Performed By: #### L 550.55427, L550.90308 #### [facility] [address] [place] [address]# [phone] Hemogram and platelets WO di fferential panel [...] MCV (RBC) [Entitic vol] 84.0 fL [facility] Monocytes (Bld) [#/Vol] 0.50 10*3/uL [facility] Monocytes/100 WBC (Bld) 5.0 % 0.0 - 12.0 % [facility] Neutrophils (Bld) [#/Vol] 5.40 10*3/uL [facility] Neutrophils/100 WBC (Bld) 59.8 % 40.0 - 70.0 % [facility] Platelet mean volume (Bld) [Entitic vol] 9.2 fL [facility] Platelets (Bld) [#/Vol] 219 10*3/uL [facility] RBC (Bld) [#/Vol] 4.79 10*6/uL [facility] WBC (Bld) [#/Vol] 9.0 10*3/uL [facility] No Panel Informationon 07-19 of unknown [...] By: Self Edit Transcribed Date: 07/19/2021 20:51 [facility] Study observation (narrative) [facility] No Panel InformationOrdered By: Srinivas Wilson on 07-19-2021 [facility] Work Phone: PROGESTERONEon 07-19-2021 PROGESTERONE 25.43 NG/ML Normal SEE CHART [facility] Comment on above: Result Comment: Fema [...] measure progesterone concentrations. Performed By: #### L 550.21912, L550.08692 #### [facility] [address] [place] [address]# [phone] US OB LESS 14 WKS SINGLE OR [...] Self Edit Transcribed Date: 07/19/2021 20:51 Normal [facility] US OB TRANSVAGINALon 022 US OB [...] Self Edit Transcribed Date: 07/19/2021 20:51 Normal [facility] Urinalysis dipstick W Reflex Culture panel (U)on 07-19-2021 Bacteria, Urine Few Abnormal None [facility] Comment on above: Performed By: #### 5 7019-2 #### [facility] [address] [place] [address] Bilirubin, Urine Negative Normal Negative [facility] Comment on above: Performed By: #### 5 7019-2 #### [facility] [address] [place] [address] Blood, Urine 3+ Abnormal Negative [facility] Comment on above: Performed By: #### 5 7019-2 #### [facility] [address] [place] [address] Clarity (U) Hazy Abnormal Clear [facility] Comment on above: Performed By: #### 5 7019-2 #### [facility] [address] [place] [address] Color (U) Yellow Normal Yellow [facility] Comment on above: Performed By: #### 5 7019-2 #### [facility] [address] [place] [address] Glucose Ql (U) Normal Normal Normal [facility] Comment on above: Performed By: #### 5 7019-2 #### [facility] [address] [place] [address] Ketones Ql (U) 80 mg/dL Abnormal Negative [facility] Comment on above: Performed By: #### 5 7019-2 #### [facility] [address] [place] [address] Leukocytes, Urine Negative Normal Negative [facility] Comment on above: Performed By: #### 5 70-2 #### [facility] [address] [place] [address] Mucus, UA Many Abnormal None [facility] Comment on above: Performed By: #### 70-2 #### [facility] [address] [place] [address] Nitrite, Urine Negative Normal Negative [facility] Comment on above: Performed By: #### 5 7019-2 #### [facility] [address] [place] [address] pH (U) 5.0 [pH] Normal 5.0-8.0 [facility] Comment on above: Performed By: #### 5 7019-2 #### [facility] [address] [place] [address] Protein (U) [Mass/Vol] 30 mg/dL Abnormal Negative [facility] Comment on above: Performed By: #### 5 7019-2 #### [facility] [address] [place] [address] RBC LM.HPF (Urine sed) [#/Area] 14 /[HPF] High 0-5 [facility] Comment on above: Performed By: #### 5 70-2 #### [facility] [address] [place] [address] Specific [place] Urine 1.025 Normal 1.002-1.030 [facility] Comment on above: Performed By: #### 5 7019-2 #### [facility] [address] [place] [address] Squamous Epithelial, Urine Many Abnormal None [facility] Comment on above: Performed By: #### 5 7019-2 #### [facility] [address] [place] [address] Urobilinogen, Urine Normal Normal Normal [facility] Comment on above: Performed By: #### 5 7019-2 #### [facility] [address] [place] [address] WBC LM.HPF (Urine sed) [#/Area] 9 /[HPF] High 0-5 [facility] Comment on above: Performed By: #### 5 7019-2 #### [facility] [address] [place] [address] Bacteria LM.HPF (Urine sed) [#/Area] Few Abnormal None /HPF [facility] Bilirubin Ql (U) Negative Negative mg/dL [facility] Clarity (U) Hazy Abnormal Clear [facility] Color (U) Yellow Yellow [facility] Epithelial cells.squamous LM.HPF (Urine sed) [#/Area] Many Abnormal None /LPF [facility] Glucose Ql (U) Normal Normal mg/dL [facility] Hemoglobin Ql (U) 3+ Abnormal Negative [facility] Interpretation and review of laboratory results Abnormal [facility] Ketones (U) [Mass/Vol] 80 mg/dL Abnormal Negat james mg/dL [facility] Leukocyte esterase Test strip Ql (U) Negative Negative WBCs/mcL [facility] Mucus Ql (Urine sed) Many Abnormal None /LPF [facility] Nitrite Ql (U) Negative Negative [facility] pH (U) 5.0 [pH] 5.0 - 8.0 [facility] Protein (U) [Mass/Vol] 30 mg/dL Abnormal Negat james mg/dL [facility] RBC LM.HPF (Urine sed) [#/Area] 14 /[HPF] High [facility] Specific gravity (U) [Rel density] 1.025 [facility] Urobilinogen (U) [Mass/Vol] Normal Normal mg/dL [facility] WBC LM.HPF (Urine sed) [#/Area] 9 /[HPF] High [facility] HCGQon 07-17-2021 HCGQ 1594.7 MIU/ML Normal less than 3 [facility] Comment on above: Result Comment: ONDINA ELLIOTT COMMENTS Less than 5 mIU/ML NEGATIVE FOR 5-25 mIU/ML BORDERLINE; RETEST IN 48 HOURS, IF INDICATED Greater than 25 mIU/ML POSITIVE FOR WEEKS POST LMP RANGE IN mIU/ML* 3-4 9-130 4-5 75-2600 5-6 850-24365 6-7 [phone] 7-12 40466-570226 12-16 47520-649158 16-29 1400-22292 29-41 [phone] *These ranges are from published literature and may not be appropriate for all cases. When HCG levels are above 4000 mIU/ML, distinction between normal and abnormal is poor. The rate of change (doubling time) may be helpful. (Reference: [facility] ) Performed By: #### L 550.59900 #### [facility] [address] [place] [address] PROGESTERONEon 07-17-2021 PROGESTERONE 3.64 NG/ML Normal SEE CHART [facility] Comment on above: Result Comment: Fema le [...] measure progesterone concentrations. Performed By: #### L 550.62894 #### [facility] [address] [place] [address] GENITAL CULTUREon 04-22-2021 GENITAL CULTURE GENITAL RESULT NO NEISSERIA GONORRHOEAE ISOLATED BETA STREP RESULT NO BETA STREPTOCOCCUS ISOLATED NORMAL JOB FEW NORMAL JOB ORGANISM 1: YEAST QUANTITATION FEW Normal [facility] Comment on above: Performed By: #### M 100.74676 #### [facility] [address] [place] [address] PCR GC AND CHLAMon PCR CHLAMYDIA Not detected Normal NOT DETECTD [facility] Comment on above: Performed By: #### L 770.95543 #### [facility] [address] [place] [address] PCR GONORRHOEAE Not detected Normal NOT DETECTD [facility] Comment on above: Performed By: #### L 770.49459 #### [facility] [address] [place] [address] HCGQon 04-13-2021 HCGQ LESS THAN 2.6 Normal less than 3 [facility] Comment on above: Result Comment: REFE EARL COMMENTS Less than 5 mIU/ML NEGATIVE FOR 5-25 mIU/ML BORDERLINE; RETEST IN 48 HOURS, IF INDICATED Greater than 25 mIU/ML POSITIVE FOR WEEKS POST LMP RANGE IN mIU/ML* 3-4 9-130 4-5 75-2600 5-6 [phone] 6-7 [phone] 7-12 72623-996129 12-16 01081-685908 16-29 1400-91646 29-41 [phone] *These ranges are from published literature and may not be appropriate for all cases. When HCG levels are above 4000 mIU/ML, distinction between normal and abnormal is poor. The rate of change (doubling time) may be helpful. (Reference: NCC ) Performed By: #### L 550.06669, L550.02900 #### [facility] [address] [place] [address] # [phone] PROGESTERONEon 04-13-2021 PROGESTERONE 0.72 NG/ML Normal SEE CHART [facility] Comment on above: Result Comment: Fema le [...] measure progesterone concentrations. Performed By: #### L 550.05549, L550.18219 #### [facility] [address] [place] [address] # [phone] ABDOMEN AND PELVIS WITHOU T CONTRASTon [...] spleen. Normal appearing appendix is visualized. Normal [facility] CBC W Auto Differential pane l (Bld)on 03-13-2021 Basophils (Bld) [#/Vol] 0.02 10*3/uL Normal <=0.70 [facility] Comment on above: Performed By: #### 5 7021-8 ####[facility] Director - Mary Shaffer [id number] Basophils/100 WBC (Bld) 0.2 % Normal <=2.0 [facility] Comment on above: Performed By: #### 5 7021-8 ####[facility] Director - Mary Shaffer [id number] Eosinophils (Bld) [#/Vol] 0.07 10*3/uL Normal <=0.70 [facility] Comment on above: Performed By: #### 5 7021-8 ####[place] [address] [facility] [id number] Eosinophils/100 WBC (Bld) 0.8 % Normal <=10.0 [facility] Comment on above: Performed By: #### 5 7021-8 ####[place] [address] Director - Mary Shaffer [id number] Erythrocyte distribution width (RBC) [Entitic vol] 35.8 fL Low 36.4-46.3 [facility] Comment on above: Performed By: #### 5 7021-8 ####[place] [address] Director - Mary Shaffer [id number] Hematocrit (Bld) [Volume fraction] 40.6 % Normal 37.0-47.0 [facility] Comment on above: Performed By: #### 5 7021-8 ####[place] [address] Director - Mary Shaffer [id number] Hemoglobin (Bld) [Mass/Vol] 14.0 g/dL Normal 12.0-16.0 [facility] Comment on above: Performed By: #### 5 7021-8 ####[place] [address] Director - Mary Shaffer [id number] Immature granulocytes (Bld) [#/Vol] 0.03 10*3/uL Normal <=0.10 [facility] Comment on above: Performed By: #### 5 7021-8 ####[address] Director - Mary Shaffer [id number] Immature granulocytes/100 WBC (Bld) 0.30 % Normal <=1.50 [facility] Comment on above: Performed By: #### 5 7021-8 ####[facility] Director - Mary Shaffer [id number] Lymphocytes (Bld) [#/Vol] 3.31 10*3/uL Normal 1.20-3.40 [facility] Comment on above: Performed By: #### 5 7021-8 ####[place] [address] Director - Mary Shaffer [id number] Lymphocytes/100 WBC (Bld) 35.8 % Normal 20.0-40.0 [facility] Comment on above: Performed By: #### 5 7021-8 ####[facility], [place] [address]Uuwfkfa Director - Mary Shaffer [id number] MCH (RBC) [Entitic mass] 29.1 pg Normal 27.0-31.0 [facility] Comment on above: Performed By: #### 5 7021-8 ####[facility] Director - Mary Shaffer [id number] MCHC (RBC) [Mass/Vol] 34.5 g/dL Normal 32.0-36.0 [facility] Comment on above: Performed By: #### 5 7021-8 ####[place] [address] Director - Mary Shaffer [id number] MCV (RBC) [Entitic vol] 84.4 fL Normal 80.0-100.0 [facility] Comment on above: Performed By: #### 5 7021-8 ####[place] [address] Director - Mary Shaffer [id number] Monocytes (Bld) [#/Vol] 0.45 10*3/uL Normal 0.10-0.60 [facility] Comment on above: Performed By: #### 5 7021-8 ####[facility], [place] [address]Xjwxulw Director - Mary AcevesIA [id number] Monocytes/100 WBC (Bld) 4.9 % Normal <=8.0 [facility] Comment on above: Performed By: #### 5 7021-8 ####[facility] Director - Mary ParraCLIA [id number] Neutrophils (Bld) [#/Vol] 5.36 10*3/uL Normal 1.40-6.50 [facility] Comment on above: Performed By: #### 5 7021-8 ####[place] [address] Director - Mary Shaffer [id number] Neutrophils/100 WBC (Bld) 58.0 % Normal 50.0-70.0 [facility] Comment on above: Performed By: #### 5 7021-8 ####[address] Director - Mary Shaffer [id number] Nucleated RBC (Bld) [#/Vol] 0.00 10*3/uL Normal <=0.10 [facility] Comment on above: Performed By: #### 5 7021-8 ####[place] [address] Director - Maryjazmine ParraCLMILO [id number] Platelet mean volume (Bld) [Entitic vol] 11.9 fL Normal 9.0-13.0 [facility] Comment on above: Performed By: #### 5 7021-8 ####[place] [address] Director - Maryjazmine Shaffer [id number] Platelets (Bld) [#/Vol] 255 10*3/uL Normal 130-400 [facility] Comment on above: Performed By: #### 5 7021-8 ####[address] Director - Mary ParraCLMILO [id number] RBC (Bld) [#/Vol] 4.81 10*6/uL Normal 4.00-6.30 [facility] Comment on above: Performed By: #### 5 7021-8 ####[place] [address] Director - Maryjazmine ParraCLIA [id number] WBC (Bld) [#/Vol] 9.24 10*3/uL Normal 4.80-10.80 [facility] Comment on above: Performed By: #### 5 7021-8 ####[facility], [place] [address]Nrmzncj Director - Mary Shaffer [id number] Comprehensive metabolic 2000 panelon 03-13-2021 Albumin [Mass/Vol] 3.9 g/dL Normal 3.4-5.0 [facility] Comment on above: Performed By: #### 3 040-3, 36759-6 ####[facility], [place] [address]Mzghduf Director - Mary Shaffer [id number] ALP [Catalytic activity/Vol] 88 U/L Normal 50-136 [facility] Comment on above: Performed By: #### 3 040-3, ####[facility], [place] [address]Kepfhdl Director - Mary Shaffer [id number] ALT [Catalytic activity/Vol] 28 U/L Normal 14-59 [facility] Comment on above: Performed By: #### 3 040-3, 94727-9 ####[facility], [place] [address]Gwdsqhi Director - Mary Shaffer [id number] Anion gap [Moles/Vol] 5.0 mmol/L Normal <=15.0 [facility] Comment on above: Performed By: #### 3 -3, 86402-3 ####[facility], [place] [address]Kzjpeqq Director - Mary Shaffer [id number] AST [Catalytic activity/Vol] 12 U/L Low 15-37 [facility] Comment on above: Performed By: #### 3 040-3, 70715-9 ####[facility], [place] [address]Qefglrz Director - Mary Shaffer [id number] Bilirubin [Mass/Vol] 0.4 mg/dL Normal 0.2-1.0 [facility] Comment on above: Performed By: #### 3 -3, ####[facility], [place] [address]Sncumpf Director - Mary Shaffer [id number] Calcium [Mass/Vol] 9.0 mg/dL Normal 8.5-10.1 [facility] Comment on above: Performed By: #### 3 040-3, ####[facility] Director - Mary Shaffer [id number] Chloride [Moles/Vol] 104 mmol/L Normal 98-107 [facility] Comment on above: Performed By: #### 3 -3, ####[facility] Director - Mary Shaffer [id number] CO2 [Moles/Vol] 28 mmol/L Normal 21-32 [facility] Comment on above: Performed By: #### 3 -3, ####[facility] Director - Mary Shaffer [id number] Creatinine [Mass/Vol] 0.43 mg/dL Low 0.51-0.95 [facility] Comment on above: Performed By: #### 3 -3, ####[facility] Director - Mary Shaffer [id number] GFR/1.73 sq M.predicted MDRD (S/P/Bld) [Vol rate/Area] mL/min/{1.73_m2} Normal >=59 [facility] Comment on above: Performed By: #### 3 040-3, ####[facility], [place] [address]Omnghgt Director - Mary Shaffer [id number] Glucose [Mass/Vol] 122 mg/dL High 74-106 [facility] Comment on above: Performed By: #### 3 , ####[facility] Director - Mary Shaffer [id number] HGFR GLOMERULAR FILTRATION RATE INTERPRETATION~The eGFR is [...] months, with or without kidney damage.~ Normal [facility] Comment on above: Performed By: #### 3 , ####[facility] Director - Mary Shaffer [id number] Potassium [Moles/Vol] 3.3 mmol/L Low 3.5-5.1 [facility] Comment on above: Performed By: #### 3 , ####[facility] Director - Mary Shaffer [id number] Protein [Mass/Vol] 7.7 g/dL Normal 6.4-8.2 [facility] Comment on above: Performed By: #### 3 -, ####[facility] - Mary Shaffer [id number] Sodium [Moles/Vol] 137 mmol/L Normal 136-145 [facility] Comment on above: Performed By: #### 3 -, ####[place] [address], [place] [address]Sbzamqf Director - Mary Shaffer [id number] Urea nitrogen [Mass/Vol] 10 mg/dL Normal 7-17 [facility] Comment on above: Performed By: #### 3 040-3, 97284-7 ####[facility], [place] [address]Sgblvfd Director - Mary Shaffer [id number] Heterophile Ab IA Qlon 03-13 MONO SCREEN Negative Normal [facility] Comment on above: Performed By: #### 6 425-3 ####[facility], [place] [address]Lncinrk Director - Mary Shaffer [id number] LIPASEon 03-13-2021 Lipase [Catalytic activity/Vol] 87 U/L Normal 73-393 [facility] Comment on above: Performed By: #### 3 040-3, 95277-9 ####[facility], [place] [address]Ycsgaem Director - Mary Shaffer [id number] RIBS LEFT UNILATERAL WITH CX Ildefonso 03-13-2021 [...] cardiopulmonary abnormality. No displaced rib fractures. Normal [facility] URINALYSIS with reflex to CU LTUREon 03-13-2021 BACTERIA Normal TRACE [facility] Comment on above: Performed By: #### U AR #### [facility] [address] [place], [place] [address] Chef French - Mary GAUTAM [id number] Performed for [facility] [address] [place], [place] [address] Bilirubin Ql (U) Negative Normal NEGATIVE [facility] Comment on above: Performed By: #### U AR #### [facility] [address] [place] [address] Chef French - Mary GAUTAM [id number] Performed for [facility] [address] [place], [place] [address] Clarity (U) CLEAR Normal CLEAR [facility] Comment on above: Performed By: #### U AR #### [facility] [address] [place] [address] Chef French - Mary PORTILLOIA [id number] Performed for [facility] [address] [place], [place] [address] Color (U) YELLOW Normal YELLOW [facility] Comment on above: Performed By: #### U AR #### [facility] [address] [place] [address] Chef French - Mary GAUTAM [id number] Performed for [facility] [address] [place], [place] [address] Glucose Ql (U) Negative Normal NEGATIVE [facility] Comment on above: Performed By: #### U AR #### [facility] [address] [place] [address] Chef French - Mary GAUTAM [id number] Performed for [facility] [address] [place], [place] [address] Hemoglobin Ql (U) Negative Normal NEGATIVE [facility] Comment on above: Performed By: #### U AR #### [facility] [address] [place] [address] Chef French - Mary GAUTAM [id number] Performed for [facility] [address] [place], [place] [address] HMICRO MICROSCOPIC Normal [facility] Comment on above: Performed By: #### U AR #### [facility] [address] [place] [address] Chef French - Mary GAUTAM [id number] Performed for [facility] [address] [place], [place] [address] Hyaline casts (Urine sed) [#/Area] Normal 0-8 [facility] Comment on above: Performed By: #### U AR #### [facility] [address] [place], [place] [address] Chef French - Mary GAUTAM [id number] Performed for [facility] [address] [place], [place] [address] KETONE Negative Normal NEGATIVE [facility] Comment on above: Performed By: #### U AR #### [facility] [address] [place], [place] [address] Chef French - Mary GAUTAM [id number] Performed for [facility] [address] [place], [place] [address] Leukocyte esterase Test strip Ql (U) Negative Normal TRACE [facility] Comment on above: Performed By: #### U AR #### [facility] [address] [place], [place] [address] Chef French - Mary GAUTAM [id number] Performed for [facility] [address] [place], [place] [address] Nitrite Ql (U) Negative Normal NEGATIVE [facility] Comment on above: Performed By: #### U AR #### [facility] [address] [place], [place] [address] Chef French - Mary GAUTAM [id number] Performed for [facility] [address] [place], [place] [address] pH (U) 5.5 [pH] Normal 5.5-7.5 [facility] Comment on above: Performed By: #### U AR #### [facility] [address] [place], [place] [address] Chef French - Mary GAUTAM [id number] Performed for [facility] [address] [place], [place] [address] Protein Ql (U) Negative Normal NEGATIVE [facility] Comment on above: Performed By: #### U AR #### [facility] [address] [place], [place] [address] Chef French - Mary GAUTAM [id number] Performed for [facility] [address] [place], [place] [address] RBC LM.HPF (Urine sed) [#/Area] Normal 0-4 [facility] Comment on above: Performed By: #### U AR #### [facility] [address] [place] [address] Chef French - Mary Parra DAIN [id number] Performed for [facility] [address] [place], [place] [address] Specific gravity (U) [Rel density] 1.024 Normal 1.010-1.035 [facility] Comment on above: Performed By: #### U AR #### [facility] [address] [place] [address] Chef French - [facility] DA[facility] [id number] Performed for [facility] [address] [place], [place] [address] SQUAMOUS EPITHELIALS Normal 0-5 [facility] Comment on above: Performed By: #### U AR #### [facility] [address] [place] [address] Chef French - MaryRehabilitation Hospital of South JerseyMILO [id number] Performed for [facility] [address] [place], [place] [address] Urobilinogen Qn (U) 1.0 {Jasmyne'U}/dL Normal <=1.0 [facility] Comment on above: Performed By: #### U AR #### [facility] [address] [place] [address] Chef French - [facility]The [facility] [id number] Performed for [facility] [address] [place], [place] [address] WBC LM.HPF (Urine sed) [#/Area] Normal 0-5 [facility] Comment on above: Performed By: #### U AR #### [facility] [address] [place] [address] Chef French - [facility] [id number] Performed for [facility] [address] [place], [place] [address] VIRAL RESPIRATORY PANELon Adenovirus Not detected Normal NOT DETECTED [facility] Comment on above: Performed By: #### R ESPIRA #### [facility] [address] [place] [address] Chef French - Mary PORTILLOIA [id number] Performed for [facility] [address] [place], [place] [address] B parapertussis Not detected Normal NOT DETECTED [facility] Comment on above: Performed By: #### R ESPIRA #### [facility] [address] [place] [address] Chef French - Mary PORTILLOIA [id number] Performed for [facility] [address] [place] [address] B pertussis Not detected Normal NOT DETECTED [facility] Comment on above: Performed By: #### R ESPIRA #### [facility] [address] [place] [address] Chef French - MaryRehabilitation Hospital of South JerseyIA [id number] Performed for [facility] [address] [place] [address] Chlamydia pneumoniae Not detected Normal NOT DETECTED [facility] Comment on above: Performed By: #### R ESPIRA #### [facility] [address] [place] [address] Chef French - MaryRehabilitation Hospital of South JerseyIA [id number] Performed for [facility] [address] [place] [address] CORONAVIRUS 229E Not detected Normal NOT DETECTED [facility] Comment on above: Performed By: #### R ESPIRA #### [facility] [address] [place] [address] Chef French - Mary Parra IA [id number] Performed for [facility] [address] [place] [address] CORONAVIRUS HKU1 Not detected Normal NOT DETECTED [facility] Comment on above: Performed By: #### R ESPIRA #### [facility] [address] [place] [address] Chef French - MaryRehabilitation Hospital of South JerseyIA [id number] Performed for [facility] [address] [place] [address] CORONAVIRUS NL63 Not detected Normal NOT DETECTED [facility] Comment on above: Performed By: #### R ESPIRA #### [facility] [address] [place] [address] Chef French - Mary GAUTAM [id number] Performed for [facility] [address] [place], [place] [address] CORONAVIRUS OC43 Not detected Normal NOT DETECTED [facility] Comment on above: Performed By: #### R ESPIRA #### [facility] [address] [place], [place] [address] Chef French - Mary GAUTAM [id number] Performed for [facility] [address] [place], [place] [address] HPCR TESTING PERFORMED BY PCR METHODOLOGY Normal [facility] Comment on above: Performed By: #### R ESPIRA #### [facility] [address] [place] [address] Chef French - Mary GAUTAM [id number] Performed for [facility] [address] [place] [address] HPCRB TEST PERFORMED USING BIOFIRE Normal [facility] Comment on above: Performed By: #### R ESPIRA #### [facility] [address] [place] [address] Chef French - Mary PORTILLOIA [id number] Performed for [facility] [address] [place], [place] [address] Human Metapneumoviru Not detected Normal NOT DETECTED [facility] Comment on above: Performed By: #### R ESPIRA #### [facility] [address] [place] [address] Chef French - Mary PORTILLOIA [id number] Performed for [facility] [address] [place], [place] [address] Influenza A Not detected Normal NOT DETECTED [facility] Comment on above: Performed By: #### R ESPIRA #### [facility] [address] [place] [address] Chef French - Mary PORTILLOIA [id number] Performed for [facility] [address] [place], [place] [address] Influenza A / H1 Normal NOT DETECTED [facility] Comment on above: Performed By: #### R ESPIRA #### [facility] [address] [place] [address] Chef French - Mary PORTILLOIA [id number] Performed for [facility] [address] [place], [place] [address] Influenza A / H3 Normal NOT DETECTED [facility] Comment on above: Performed By: #### R ESPIRA #### [facility] [address] [place] [address] Chef French - Mary PORTILLOIA [id number] Performed for [facility] [address] [place] [address] Influenza A H1-2009 Normal NOT DETECTED [facility] Comment on above: Performed By: #### R ESPIRA #### [facility] [address] [place] [address] Chef French - Mary PORTILLOIA [id number] Performed for [facility] [address] [place] [address] Influenza B Not detected Normal NOT DETECTED [facility] Comment on above: Performed By: #### R ESPIRA #### [facility] [address] [place] [address] Chef French - Mary PORTILLOIA [id number] Performed for [facility] [address] [place] [address] Mycoplasma pneumonia Not detected Normal NOT DETECTED [facility] Comment on above: Performed By: #### R ESPIRA #### [facility] [address] [place] [address] Chef French - Mary PORTILLOIA [id number] Performed for [facility] [address] [place] [address] Parainfluenza 1 Not detected Normal NOT DETECTED [facility] Comment on above: Performed By: #### R ESPIRA #### [facility] [address] [place] [address] Chef French - Mary GAUTAM [id number] Performed for [facility] [address] [place] [address] Parainfluenza 2 Not detected Normal NOT DETECTED [facility] Comment on above: Performed By: #### R ESPIRA #### [facility] [address] [place] [address] Chef French - Mary PORTILLOIA [id number] Performed for [facility] [address] [place] [address] Parainfluenza 3 Not detected Normal NOT DETECTED [facility] Comment on above: Performed By: #### R ESPIRA #### [facility] [address] [place] [address] Chef French - Mary Fidel PORTILLOIA [id number] Performed for [facility] [address] [place] [address] Parainfluenza 4 Not detected Normal NOT DETECTED [facility] Comment on above: Performed By: #### R ESPIRA #### [facility] [address] [place] [address] Chef French - Mary PORTILLOIA [id number] Performed for [facility] [address] [place] [address] Rhinovirus Not detected Normal NOT DETECTED [facility] Comment on above: Performed By: #### R ESPIRA #### [facility] [address] [place] [address] Chef French - Mary Parra CLIA [id number] Performed for [facility] [address] [place] [address] RSV Not detected Normal NOT DETECTED [facility] Comment on above: Performed By: #### R ESPIRA #### [facility] [address] [place] [address] Chef French - Mary GAUTAM [id number] Performed for [facility] [address] [place] [address] SARS-CoV-2 (COVID-19) RNA PETER+probe Ql (Unsp spec) Not detected Normal NOT DETECTED [facility] Comment on above: Performed By: #### R ESPIRA #### [facility] [address] [place] [address] Chef French - Mary GAUTAM [id number] Performed for [facility] [address] [place] [address] HCGQon 09-04-2020 HCGQ LESS THAN 2.6 Normal less than 3 [facility] Comment on above: Result Comment: REFE EARL COMMENTS Less than 5 mIU/ML NEGATIVE FOR 5-25 mIU/ML BORDERLINE; RETEST IN 48 HOURS, IF INDICATED Greater than 25 mIU/ML POSITIVE FOR WEEKS POST LMP RANGE IN mIU/ML* 3-4 9-130 4-5 75-2600 5-6 [phone] 6-7 [phone] 7-12 [id number] 12-16 [id number] 16-29 [phone] 29-41 [phone] *These ranges are from published literature and may not be appropriate for all cases. When HCG levels are above 4000 mIU/ML, distinction between normal and abnormal is poor. The rate of change (doubling time) may be helpful. (Reference: NCCLS ) Performed By: #### L 550.91403 #### [facility] [address] [phone] CHEST (TWO VIEWS) - CXRon CHEST (TWO VIEWS) - CXR [place] [address] Name: JEFF PORTILLO Phys: MARCO MOJICA M.D. : [birth year] Age: 25 Sex: F Acct: [id number] Loc: RAD Exam Date: 08/21/20 Status: REG CLI Radiology No.: [id number] Unit Number: [id number] Exam # Type/Exam [id number] RAD / CHEST (TWO VIEWS) - CXR [...] By: LEI MAYFIELD D.O. Tests performed at: [place] [address] Normal [facility] INSULINon 09-27-2019 INSULIN 23.2 uIU/mL Normal 2.6-24.9 [facility] Comment on above: Result Comment: Perf ormed at: - [facility] [address] [id number] [employer] Helper: Juan M Nielsen PhD, Phone: [phone] Performed By: #### L 800.0950, L800.1420 #### [place] [address] TESTOSFREEon 09-27-2019 TESTOSFREE 3.8 pg/mL Normal 0.0-4.2 [facility] Comment on above: Result Comment: Perf ormed at: - [facility] [address] [id number] [employer] Helper: Cait Reyes MD, Phone: [phone] Performed By: #### L 800.0950, L800.1420 #### [place] [address] CBC NO DIFon 09-21-2019 Erythrocyte distribution width (RBC) [Ratio] 12.5 % Normal 12.5-15.7 [facility] Comment on above: Performed By: #### L 200.0005 #### [facility] [address] [place] [address] Hematocrit (Bld) [Volume fraction] 40.4 % Normal 36.0-48.0 [facility] Comment on above: Performed By: #### L 200.0005 #### [facility] [address] [place] [address] Hemoglobin (Bld) [Mass/Vol] 13.9 g/dL Normal 12.0-16.0 [facility] Comment on above: Performed By: #### L 200.0005 #### [facility] [address] [place] [address] MCH (RBC) [Entitic mass] 29.7 pg Normal 28.5-32.9 [facility] Comment on above: Performed By: #### L 200.0005 #### [facility] [address] [place] [address] MCHC (RBC) [Mass/Vol] 34.3 g/dL Normal 33.0-36.0 [facility] Comment on above: Performed By: #### L 200.0005 #### [facility] [address] [place] [address] MCV (RBC) [Entitic vol] 86.7 fL Normal 80.0-99.0 [facility] Comment on above: Performed By: #### L 200.0005 #### [facility] [address] [place] [address] Platelet mean volume (Bld) [Entitic vol] 10.1 fL High 7.5-9.5 [facility] Comment on above: Performed By: #### L 200.0005 #### [facility] [address] [place] [address] PLT 219 X10(3) Normal 150-450 [facility] Comment on above: Performed By: #### L 200.0005 #### [facility] [address] [place] [address] RBC 4.66 x10(6) Normal 3.30-5.00 [facility] Comment on above: Performed By: #### L 200.0005 #### [facility] [address] [place] [address] WBCHS 6.3 x10(3) Normal 4.5-10.0 [facility] Comment on above: Performed By: #### L 200.0005 #### [facility] [address] [place] [address] FSHon 09-21-2019 FSH 7.16 mIU/mL Normal [facility] Comment on above: Result Comment: Fema le Ref. Ranges Follicular Phase: 3.5 - 12.5 mIU/mL Ovulation Phase: 4.7 - 12.5 mIU/mL Luteal Phase : 1.7 - 7.7 mIU/mL Post-Menopause : 25.8-134.8 mIU/mL Performed By: #### L 304.0170, L100.0060, L304.0140, L304.0480, L304.0180 #### ML - LABORATORY [address] [place] [id number] GLUCOSEon 09-21-2019 Glucose [Mass/Vol] 92 mg/dL Normal 74-106 [facility] Comment on above: Performed By: #### L 304.0170, L100.0060, L304.0140, L304.0480, L304.0180 #### ML - LABORATORY [address] [place] [id number] LHon 09-21-2019 LH 9.12 mIU/mL Normal [facility] Comment on above: Result Comment: Fema le Ref. Ranges Follicular Phase : 2.4 - 12.6 mIU/mL Ovulatory Peak : 14.0 - 95.6 mIU/mL Luteal Phase : 1.0 - 11.4 mIU/mL Post-Menopausal : 7.7 - 58.5 mIU/mL Performed By: #### L 304.0170, L100.0060, L304.0140, L304.0480, L304.0180 #### ML - LABORATORY [address] [place] [id number] TESTOSTERONE TOon 09-21-2019 TESTOSTERONE TO 44.67 ng/dL Normal 8.40-48.1 [facility] Comment on above: Performed By: #### L 304.0170, L100.0060, L304.0140, L304.0480, L304.0180 #### ML - LABORATORY [address] [place] [id number] TSHon 09-21-2019 TSH 1.40 uIU/mL Normal 0.27-4.20 [facility] Comment on above: Performed By: #### L 304.0170, L100.0060, L304.0140, L304.0480, L304.0180 #### [facility] - [facility] [address] [place] [address] Vital Signs Date Time Vital Sign Value Performing Clinician Facility 11-19-2024 09:10-0400 Body height 172.72 cm No Primary Care Physician [facility] 11-19-2024 09:07-0400 Body mass index (BMI) [Ratio] 36.1 kg/m2 No Primary Care Physician [facility] 11-19-2024 09:07-0400 Body weight 107.95 kg No Primary Care Physician [facility] 11-19-2024 09:07-0400 Diastolic blood pressure 87 mm[Hg] No Primary Care Physician [facility] 11-19-2024 09:07-0400 Systolic blood pressure 134 mm[Hg] No Primary Care Physician [facility] 10-12-2024 13:45-0400 Body height 172.72 cm No Primary Care Physician [facility] 10-12-2024 13:45-0400 Body mass index (BMI) [Ratio] 36.5 kg/m2 No Primary Care Physician [facility] 10-12-2024 13:45-0400 Body weight 108.86 kg No Primary Care Physician [facility] 10-12-2024 13:45-0400 Diastolic blood pressure 87 mm[Hg] No Primary Care Physician [facility] 10-12-2024 13:45-0400 Heart rate 110 /min No Primary Care Physician [facility] 10-12-2024 13:45-0400 Respiratory rate 16 /min No Primary Care Physician [facility] 10-12-2024 13:45-0400 Systolic blood pressure 134 mm[Hg] No Primary Care Physician [facility] 10-11-2024 13:05-0400 Body height 172.72 cm No Primary Care Physician [facility] 10-11-2024 09:13-0400 Body mass index (BMI) [Ratio] 36.8 kg/m2 No Primary Care Physician [facility] 10-11-2024 09:13-0400 Body weight 109.82 kg No Primary Care Physician [facility] 10-11-2024 09:13-0400 Diastolic blood pressure 86 mm[Hg] No Primary Care Physician [facility] 10-11-2024 09:13-0400 Systolic blood pressure 132 mm[Hg] No Primary Care Physician [facility] 10-01-2024 12:05-0400 Diastolic blood pressure 87 mm[Hg] No Primary Care Physician [facility] 10-01-2024 12:05-0400 Systolic blood pressure 124 mm[Hg] No Primary Care Physician [facility] 10-01-2024 11:43-0400 Body height 172.72 cm No Primary Care Physician [facility] 10-01-2024 11:43-0400 Body mass index (BMI) [Ratio] 36.2 kg/m2 No Primary Care Physician [facility] 10-01-2024 11:43-0400 Body weight 108.12 kg No Primary Care Physician [facility] 09-29-2024 23:54-0400 Body temperature 98 [degF] No Primary Care Physician [facility] 09-29-2024 23:54-0400 Diastolic blood pressure 85 mm[Hg] No Primary Care Physician [facility] 09-29-2024 23:54-0400 Heart rate 96 /min No Primary Care Physician [facility] 09-29-2024 23:54-0400 Respiratory rate 23 /min No Primary Care Physician [facility] 09-29-2024 23:54-0400 SaO2% (BldA) [Mass fraction] 99 % No Primary Care Physician [facility] 09-29-2024 23:54-0400 Systolic blood pressure 120 mm[Hg] No Primary Care Physician [facility] 09-29-2024 21:46-0400 Body height 172.72 cm No Primary Care Physician [facility] 09-29-2024 21:46-0400 Body mass index (BMI) [Ratio] 36.8 kg/m2 No Primary Care Physician [facility] 09-29-2024 21:46-0400 Body weight 109.76 kg No Primary Care Physician [facility] 09-01-2024 15:49-0400 Body height 172.72 cm No Primary Care Physician [facility] 09-01-2024 15:46-0400 Body mass index (BMI) [Ratio] 36.3 kg/m2 No Primary Care Physician [facility] 09-01-2024 15:46-0400 Body weight 108.46 kg No Primary Care Physician [facility] 09-01-2024 15:46-0400 Diastolic blood pressure 86 mm[Hg] No Primary Care Physician [facility] 09-01-2024 15:46-0400 Systolic blood pressure 131 mm[Hg] No Primary Care Physician [facility] 08-27-2024 13:02-0400 Body height 172.72 cm No Primary Care Physician [facility] 08-27-2024 13:02-0400 Body mass index (BMI) [Ratio] 35.9 kg/m2 No Primary Care Physician [facility] 08-27-2024 13:02-0400 Body weight 107.16 kg No Primary Care Physician [facility] 08-27-2024 13:02-0400 Diastolic blood pressure 87 mm[Hg] No Primary Care Physician [facility] 08-27-2024 13:02-0400 Systolic blood pressure 131 mm[Hg] No Primary Care Physician [facility] 08-16-2024 15:46-0400 Body height 172.72 cm No Primary Care Physician [facility] 08-16-2024 15:46-0400 Diastolic blood pressure 93 mm[Hg] No Primary Care Physician [facility] 08-16-2024 15:46-0400 Systolic blood pressure 130 mm[Hg] No Primary Care Physician [facility] 08-16-2024 15:43-0400 Body mass index (BMI) [Ratio] 36.2 kg/m2 No Primary Care Physician [facility] 08-16-2024 15:43-0400 Body weight 108.18 kg No Primary Care Physician [facility] 08-13-2024 15:56-0400 Body height 172.72 cm No Primary Care Physician [facility] 08-13-2024 15:55-0400 Body mass index (BMI) [Ratio] 35.6 kg/m2 No Primary Care Physician [facility] 08-13-2024 15:55-0400 Body weight 106.19 kg No Primary Care Physician [facility] 08-13-2024 15:55-0400 Diastolic blood pressure 82 mm[Hg] No Primary Care Physician [facility] 08-13-2024 15:55-0400 Systolic blood pressure 130 mm[Hg] No Primary Care Physician [facility] 08-09-2024 14:19-0400 Diastolic blood pressure 88 mm[Hg] No Primary Care Physician [facility] 08-09-2024 14:19-0400 Systolic blood pressure 135 mm[Hg] No Primary Care Physician [facility] 08-09-2024 14:00-0400 Body height 172.72 cm No Primary Care Physician [facility] 08-09-2024 14:00-0400 Body mass index (BMI) [Ratio] 36.2 kg/m2 No Primary Care Physician [facility] 08-09-2024 14:00-0400 Body weight 108.18 kg No Primary Care Physician [facility] 08-03-2024 14:54-0400 Body height 172.72 cm No Primary Care Physician [facility] 08-03-2024 14:54-0400 Body mass index (BMI) [Ratio] 36 kg/m2 No Primary Care Physician [facility] 08-03-2024 14:54-0400 Body weight 107.5 kg No Primary Care Physician [facility] 08-03-2024 14:54-0400 Diastolic blood pressure 91 mm[Hg] No Primary Care Physician [facility] 08-03-2024 14:54-0400 Systolic blood pressure 139 mm[Hg] No Primary Care Physician [facility] 07-27-2024 10:15-0400 Body mass index (BMI) [Ratio] 35.6 kg/m2 No Primary Care Physician [facility] 07-27-2024 10:15-0400 Body weight 106.19 kg No Primary Care Physician [facility] 07-27-2024 10:15-0400 Diastolic blood pressure 88 mm[Hg] No Primary Care Physician [facility] 07-27-2024 10:15-0400 Systolic blood pressure 138 mm[Hg] No Primary Care Physician [facility] 07-25-2024 13:26-0400 Body temperature 97.6 [degF] No Primary Care Physician [facility] 07-25-2024 13:26-0400 Diastolic blood pressure 78 mm[Hg] No Primary Care Physician [facility] 07-25-2024 13:26-0400 Heart rate 80 /min No Primary Care Physician [facility] 07-25-2024 13:26-0400 Respiratory rate 15 /min No Primary Care Physician [facility] 07-25-2024 13:26-0400 SaO2% (BldA) [Mass fraction] 98 % No Primary Care Physician [facility] 07-25-2024 13:26-0400 Systolic blood pressure 118 mm[Hg] No Primary Care Physician [facility] 07-25-2024 11:130400 Body height 172.72 cm No Primary Care Physician [facility] 07-25-2024 11:130400 Body mass index (BMI) [Ratio] 35 kg/m2 No Primary Care Physician [facility] 07-25-2024 11:130400 Body weight 104.55 kg No Primary Care Physician [facility] 07-16-2024 14:240400 Body height 172.72 cm No Primary Care Physician [facility] 07-16-2024 14:24-0400 Body mass index (BMI) [Ratio] 35.8 kg/m2 No Primary Care Physician [facility] 07-16-2024 14:240400 Body weight 106.82 kg No Primary Care Physician [facility] 07-16-2024 14:24-0400 Diastolic blood pressure 76 mm[Hg] No Primary Care Physician [facility] 07-16-2024 14:24-0400 Systolic blood pressure 116 mm[Hg] No Primary Care Physician [facility] 04-12-2024 08:51-0500 Heart rate 100 /min Domenico Long APRN-IOANA Work Phone: [facility] 04-12-2024 08:18-0500 Body temperature 98.4 [degF] Domenico Long APRN-BANK ADVISOR Work Phone: [facility] 04-12-2024 08:18-0500 Body weight 106.59 kg Domenico Long APRN-BANK ADVISOR Work Phone: [facility] 04-12-2024 08:18-0500 Diastolic blood pressure 82 mm[Hg] Domenico Long APRN-BANK ADVISOR Work Phone: [facility] 04-12-2024 08:18-0500 Respiratory rate 19 /min Domenico Long APRN-BANK ADVISOR Work Phone: [facility] 04-12-2024 08:18-0500 SaO2% (BldA) [Mass fraction] 97 % Domenico Long BOILER CONTROL ROOM OPERATOR-BANK ADVISOR Work Phone: [facility] 04-12-2024 08:18-0500 Systolic blood pressure 141 mm[Hg] Domenico Long BOILER CONTROL ROOM OPERATOR-BANK ADVISOR Work Phone: [facility] 07-02-2023 15:00-0400 Body height 172.72 cm AUTO GARAGE ATTENDANT-C Esperanza Dotson Work Phone: [facility] 07-02-2023 15:00-0400 Body mass index (BMI) [Ratio] 34.2 kg/m2 AUTO GARAGE ATTENDANT-C Esperanza Dotson Work Phone: [facility] 07-02-2023 15:00-0400 Body weight 102.17 kg AUTO GARAGE ATTENDANT-C Esperanza Dotson Work Phone: [facility] 07-02-2023 15:00-0400 Diastolic blood pressure 82 mm[Hg] AUTO GARAGE ATTENDANT-C Esperanza Dotson Work Phone: [facility] 07-02-2023 15:00-0400 Systolic blood pressure 130 mm[Hg] AUTO GARAGE ATTENDANT-C Esperanza Dotson Work Phone: [facility] 02-21-2023 13:10-0500 Diastolic Blood Pressure Non-Invasive 73 mm[Hg] LIZ BATERS BOILER CONTROL ROOM OPERATOR-BANK ADVISOR [facility] 02-21-2023 13:10-0500 Heart rate 93 /min LIZ BATERS BOILER CONTROL ROOM OPERATOR-BANK ADVISOR [facility] 02-21-2023 13:10-0500 Respiratory rate 16 /min LIZ BATERS BOILER CONTROL ROOM OPERATOR-BANK ADVISOR [facility] 02-21-2023 13:10-0500 Systolic Blood Pressure Non-Invasive 117 mm[Hg] LIZ BATERS BOILER CONTROL ROOM OPERATOR-BANK ADVISOR [facility] 02-21-2023 12:55-0500 Diastolic Blood Pressure Non-Invasive 65 mm[Hg] LIZ BATERS BOILER CONTROL ROOM OPERATOR-BANK ADVISOR [facility] 02-21-2023 12:55-0500 Heart rate 91 /min LIZ BATERS BOILER CONTROL ROOM OPERATOR-BANK ADVISOR [facility] 02-21-2023 12:55-0500 Respiratory rate 16 /min LIZ BATERS BOILER CONTROL ROOM OPERATOR-BANK ADVISOR [facility] 02-21-2023 12:55-0500 Systolic Blood Pressure Non-Invasive 111 mm[Hg] LIZ BATERS BOILER CONTROL ROOM OPERATOR-BANK ADVISOR [facility] 02-21-2023 12:40-0500 Diastolic Blood Pressure Non-Invasive 78 mm[Hg] LIZ BATERS BOILER CONTROL ROOM OPERATOR-BANK ADVISOR [facility] 02-21-2023 12:40-0500 Heart rate 91 /min LIZ BATERS BOILER CONTROL ROOM OPERATOR-BANK ADVISOR [facility] 02-21-2023 12:40-0500 Respiratory rate 16 /min LIZ BATERS BOILER CONTROL ROOM OPERATOR-BANK ADVISOR [facility] 02-21-2023 12:40-0500 Systolic Blood Pressure Non-Invasive 131 mm[Hg] LIZ BATERS BOILER CONTROL ROOM OPERATOR-BANK ADVISOR [facility] 02-21-2023 11:40-0500 Heart rate 71 /min LIZ BATERS BOILER CONTROL ROOM OPERATOR-BANK ADVISOR [facility] 02-21-2023 11:35-0500 Heart rate 76 /min LIZ BATERS BOILER CONTROL ROOM OPERATOR-BANK ADVISOR [facility] 02-21-2023 11:30-0500 Heart rate 75 /min LIZ BATERS BOILER CONTROL ROOM OPERATOR-BANK ADVISOR [facility] 02-21-2023 09:04-0500 Body height 172 cm LIZ BATERS BOILER CONTROL ROOM OPERATOR-BANK ADVISOR [facility] 02-21-2023 09:04-0500 Body temperature 98.6 [degF] LIZ BATERS BOILER CONTROL ROOM OPERATOR-BANK ADVISOR [facility] 02-21-2023 09:04-0500 Body weight 101 kg LIZ ALBERTO BOILER CONTROL ROOM OPERATOR-BANK ADVISOR [facility] 02-21-2023 09:04-0500 Body weight 34.14 kg/m2 LIZ ALBERTO BOILER CONTROL ROOM OPERATOR-BANK ADVISOR [facility] 02-15-2023 11:53-0500 Body temperature 98.6 [degF] AUGIE HANNAH MD [facility] 02-15-2023 11:53-0500 Body weight 101 kg AUGIE HANNAH MD [facility] 02-15-2023 11:53-0500 Diastolic Blood Pressure Non-Invasive 116 mm[Hg] AUGIE HANNAH MD [facility] 02-15-2023 11:53-0500 Heart rate 100 /min AUGIE HANNAH MD [facility] 02-15-2023 11:53-0500 Respiratory rate 16 /min AUGIE HANNAH MD [facility] 02-15-2023 11:53-0500 Systolic Blood Pressure Non-Invasive 169 mm[Hg] AUGIE HANNAH MD [facility] 2022 11:50-0500 Body temperature 97.9 [degF] Isi Martell BOILER CONTROL ROOM OPERATOR.BANK ADVISOR Work Phone: [facility] 2022 11:50-0500 Body weight 102.51 kg Isi Martell BOILER CONTROL ROOM OPERATOR.BANK ADVISOR Work Phone: [facility] 2022 11:50-0500 Diastolic blood pressure 89 mm[Hg] Isi Martell BOILER CONTROL ROOM OPERATOR.BANK ADVISOR Work Phone: [facility] 2022 11:50-0500 Heart rate 49 /min Isi Martell APRN.BANK ADVISOR Work Phone: [facility] 2022 11:50-0500 SaO2% (BldA) [Mass fraction] 96 % Isi Munozdawit STEWARTBANK ADVISOR Work Phone: [facility] 2022 11:50-0500 Systolic blood pressure 140 mm[Hg] Isi Martell APRN.BANK ADVISOR Work Phone: [facility] 09-11-2021 18:26-0400 Body height 172.7 cm No Physician [facility] 09-11-2021 18:26-0400 Body mass index (BMI) [Ratio] 34.21 kg/m2 No Physician [facility] 09-11-2021 18:26-0400 Body temperature 99.1 [degF] No Physician [facility] 09-11-2021 18:26-0400 Body weight 102.06 kg No Physician [facility] 09-11-2021 18:26-0400 Diastolic blood pressure 99 mm[Hg] No Physician [facility] 09-11-2021 18:26-0400 Heart rate 136 /min No Physician [facility] 09-11-2021 18:26-0400 SaO2% (BldA) [Mass fraction] 92 % No Physician [facility] 09-11-2021 18:26-0400 Systolic blood pressure 136 mm[Hg] No Physician [facility] 07-20-2021 01:01-0400 Diastolic blood pressure 78 mm[Hg] Gabriella Ohara MD Work Phone: [facility] 07-20-2021 01:01-0400 Heart rate 89 /min Gabriella Ohara MD Work Phone: [facility] 07-20-2021 01:01-0400 Respiratory rate 16 /min Gabriella Ohara MD Work Phone: [facility] 07-20-2021 01:01-0400 SaO2% (BldA) [Mass fraction] 100 % Gabriella Ohara MD Work Phone: [facility] 07-20-2021 01:01-0400 Systolic blood pressure 122 mm[Hg] Gabriella Ohara MD Work Phone: [facility] 07-19-2021 18:15-0400 Body height 172.7 cm Gabriella Ohara MD Work Phone: [facility] 07-19-2021 18:15-0400 Body mass index (BMI) [Ratio] 34.52 kg/m2 Gabriella Ohara MD Work Phone: [facility] 07-19-2021 18:15-0400 Body weight 102.97 kg Gabriella Ohara MD Work Phone: [facility] 07-19-2021 18:08-0400 Body temperature 99 [degF] Gabriella Ohara MD Work Phone: [facility] Encounters Encounter Date Encounter Type Care Provider Facility Start: 01-19-2025 End: 01-19-2025 ambulatory RIANA JANE Facility:[facility] Start: 01-14-2025 End: 01-14-2025 ambulatory Aaliyah Borrego Facility:[facility] Start: 11-19-2024 End: 11-19-2024 ambulatory No Primary Care Physician -Laboratory Specimen Start: 11-19-2024 End: 11-19-[address] Karen Vu MD -Laboratory Specimen Work Phone: Start: 11-19-2024 End: 11-19-[address] Karen Vu MD -[facility] Work Phone: Start: 11-19-2024 End: 11-19-2024 ambulatory No Primary Care Physician -[facility] Start: 11-19-2024 End: 11-19-2024 ambulatory Karen Vu Facility:[facility] Start: 11-17-2024 End: 11-17-2024 ambulatory Facility:[facility] Start: 11-05-2024 Non-patient / Non-visit [facility] Michoacano [facility] Start: 11-05-2024 End: 11-05-2024 ambulatory No Primary Care Physician -Cardiovascular Services Start: 11-05-2024 End: 11-05-[address] Pepe Cuellar MD -Cardiovascular Services Work Phone: Start: 11-05-2024 End: 11-05-2024 ambulatory No Primary Care Physician Facility:[facility] Start: 10-29-2024 ambulatory No Primary Car e Physician Facility:[facility] Start: 10-21-2024 End: 10-21-2024 ambulatory DIANA VORA [facility] Start: 10-21-2024 End: 10-21-2024 ambulatory DIANA MOHAN [facility] Start: 10-12-2024 End: 10-12-[address] Pepe Cuellar MD -[facility] Work Phone: Start: 10-12-2024 End: 10-12-2024 ambulatory No Primary Care Physician -[facility] Start: 10-11-2024 End: 10-11-[address] Diana Leigh DO -[facility] Work Phone: Start: 10-11-2024 End: 10-11-2024 ambulatory No Primary Care Physician -[facility] Start: 10-11-2024 End: 10-11-2024 ambulatory No Primary Care Physician Facility:[facility] Start: 10-01-2024 End: 10-01-2024 ambulatory No Primary Care Physician -Laboratory Start: 10-01-2024 End: 10-01-[address] Karen Vu MD -Laboratory Work Phone: Start: 10-01-2024 End: 10-01-[address] Karen Vu MD -[facility] Work Phone: Start: 10-01-2024 End: 10-01-2024 ambulatory No Primary Care Physician -[facility] Start: 10-01-2024 End: 10-01-2024 ambulatory Karen Vu Facility:[facility] Start: 09-29-2024 End: 09-29-2024 Emergency department patient visit No Primary Care Physician -Emergency Department Work Phone: Start: 09-01-2024 End: 09-01-[address] Diana Leigh DO -[facility] Work Phone: Start: 09-01-2024 End: 09-01-2024 ambulatory No Primary Care Physician [facility] Work Phone: Start: 09-01-2024 End: 09-01-2024 ambulatory Diana Leigh Facility:[facility] Start: 08-27-2024 End: 08-27-2024 ambulatory No Primary Care Physician [facility] Work Phone: Start: 08-27-2024 End: 08-27-[address] Diana Leigh DO -[facility] Work Phone: Start: 08-27-2024 End: 08-27-2024 ambulatory No Primary Care Physician Facility:[facility] Start: 08-16-2024 End: 08-16-2024 Patient encounter procedure Aaliyah SWEENEY -[facility] Work Phone: Start: 08-16-2024 End: 08-16-2024 ambulatory No Primary Care Physician [facility] Work Phone: Start: 08-13-2024 End: 08-13-2024 Patient encounter procedure Felicia Kaur [facility] Work Phone: Start: 08-13-2024 End: 08-13-2024 ambulatory No Primary Care Physician [facility] Work Phone: Start: 08-09-2024 End: 08-09-2024 Patient encounter procedure Aaliyah Borrego [facility] Work Phone: Start: 08-09-2024 End: 08-09-2024 ambulatory No Primary Care Physician [facility] Work Phone: Start: 08-03-2024 End: 08-03-2024 ambulatory No Primary Care Physician [facility] Work Phone: Start: 08-03-2024 End: 08-03-[address] Diana WEBERLaboratory Specimen Work Phone: Start: 08-03-2024 End: 08-03-2024 Patient encounter procedure Aaliyah Borrego CNM -[facility] Work Phone: Start: 08-03-2024 End: 08-03-2024 ambulatory No Primary Care Physician [facility] Work Phone: Start: 08-03-2024 End: 08-03-2024 ambulatory No Primary Care Physician Facility:[facility] Start: 07-27-2024 End: 07-27-2024 ambulatory No Primary Care Physician [facility] Work Phone: Start: 07-27-2024 End: 07-27-[address] Diana Leigh DO -Laboratory Specimen Work Phone: Start: 07-27-2024 End: 07-27-[address] Diana Leigh DO -[facility] Work Phone: Start: 07-27-2024 End: 07-27-2024 ambulatory No Primary Care Physician [facility] Work Phone: Start: 07-27-2024 End: 07-27-2024 ambulatory No Primary Care Physician Facility:[facility] Start: 07-25-2024 End: 07-25-2024 Emergency department patient visit No Primary Care Physician -Emergency Department Work Phone: Start: 07-21-2024 End: 07-21-2024 ambulatory No Primary Care Physician [facility] Work Phone: Start: 07-21-2024 End: 07-21-[address] Diana Leigh DO -Laboratory Work Phone: Start: 07-21-2024 End: 07-21-2024 ambulatory No Primary Care Physician Facility:[facility] Start: 07-19-2024 End: 07-19-2024 ambulatory No Primary Care Physician [facility] Work Phone: Start: 07-19-2024 End: 07-19-2024 Patient encounter procedure Aaliyah Borrego CNM -Ultrasound [facility] Work Phone: Start: 07-19-2024 End: 07-19-2024 ambulatory Aaliyah Borrego Facility:[facility] Start: 07-16-2024 End: 07-16-[address] Diana Leigh DO [facility] Work Phone: Start: 07-16-2024 End: 07-16-2024 ambulatory No Primary Care Physician Facility:[facility] Start: 07-15-2024 End: 07-15-2024 Emergency department patient visit MARCO MOJICA Facility:[facility] Start: 07-08-2024 End: 07-08-2024 Patient encounter procedure Aaliyah Borrego CNM -Laboratory Work Phone: Start: 07-08-2024 End: 07-08-2024 ambulatory Aaliyah Borrego Facility:[facility] Start: 07-06-2024 End: 07-06-2024 Patient encounter procedure Aaliyah Borrego CNM -Laboratory Work Phone: Start: 07-06-2024 End: 07-06-2024 ambulatory No Primary Care Physician Facility:[facility] Start: 04-12-2024 End: 04-12-2024 Office outpatient new 45 minutes Domenico Long APRN-BANK ADVISOR Work Phone: [facility] Comment on above: COVID-19 (Primary Dx ); Acute cough; SOB (shortness of breath); Fatigue, unspecified type; Bilateral impacted cerumen; At increased risk of exposure to COVID-19 virus; Possible ; PND (post-nasal drip); Non-recurrent acute suppurative otitis media of both ears without spontaneous rupture of tympanic membranes Start: 03-01-2024 End: 03-01-2024 ambulatory No Primary Care Physician Facility:[facility] Start: 02-01-2024 End: 02-01-2024 ambulatory No Primary Care Physician Facility:[facility] Start: 07-02-2023 End: 07-02-2023 ambulatory JACKI Dotson Work Phone: [facility] Work Phone: Start: 07-02-2023 End: 07-02-2023 Patient encounter procedure AUTO GARAGE ATTENDANT-Monserrat Dotson Work Phone: [facility]-Laboratory, Specimen Work Phone: Start: 07-02-2023 End: 07-02-2023 Patient encounter procedure AUTO GARAGE ATTENDANT-C Esperanza Dotson Work Phone: [facility] Work Phone: Start: 03-31-2023 ambulatory CARLEE CARRASCO BOILER CONTROL ROOM OPERATOR-BANK ADVISOR Facility:B Start: 02-21-2023 End: 02-21-2023 ambulatory LIZ ALBERTO BOILER CONTROL ROOM OPERATOR-BANK ADVISOR Facility:A Start: 02-21-2023 End: 02-21-2023 Patient encounter procedure LIZ ALBERTO BOILER CONTROL ROOM OPERATOR-BANK ADVISOR [facility] Start: 02-20-[address] MARCO MOJICA MD Facil ity:A Start: 02-19-2023 ambulatory LIZ BATERS BOILER CONTROL ROOM OPERATOR-BANK ADVISOR Fa cility:A Start: 02-19-2023 End: 02-20-2023 ambulatory LIZ ALBERTO BOILER CONTROL ROOM OPERATOR-BANK ADVISOR Facility:B Start: 02-19-2023 End: 02-19-2023 Patient encounter procedure LIZ ALBERTO BOILER CONTROL ROOM OPERATOR-BANK ADVISOR [facility] Start: 02-15-2023 End: 02-15-2023 Emergency department patient visit DR MARCO MOJICA MD Facility:B Start: 02-15-2023 End: 02-15-2023 Emergency department patient visit AUGIE HANNAH MD [facility] Start: 05-30-2022 End: 05-31-2022 ambulatory CATY BYRNE MD~[id number] Facility:[facility] Start: 03-07-2022 End: 03-07-[address] MARCO MOJICA MD [facility] Start: 02-06-2022 Telephone encounter Isi Martell APRN.BANK ADVISOR Work Phone: [facility] Comment on above: Results Start: 2022 ambulatory FC-ISI MARTELL Fa cility:[facility] Start: 2022 End: 2022 Subsequent hospital [facility] by physician [facility] Start: 2022 End: 2022 Patient encounter procedure Isi Martell APRN.BANK ADVISOR Work Phone: [facility] Comment on above: Dysuria (Primary Dx) ; Vaginal discharge Start: 09-12-2021 End: 09-12-2021 ambulatory NONE NONE Facility:[facility] Start: 09-11-2021 End: 09-11-2021 Emergency department patient visit NO PCP PHYSICIAN [facility] Start: 09-11-2021 End: 09-11-2021 Emergency department patient visit No Physician [facility] Start: 09-11-2021 End: 09-11-2021 Evaluation and management of inpatient No Physician [facility] Start: 07-19-2021 End: 07-20-2021 Emergency department patient visit GABRIELLA OHARA [facility] Start: 07-19-2021 End: 07-20-2021 Emergency department patient visit Gabriella Ohara MD Work Phone: [facility] Emergency Room Comment on above: Miscarriage (Primary Dx) Start: 07-19-2021 End: 07-20-2021 Evaluation and management of inpatient Gabriella Ohara MD Work Phone: [facility] Start: 07-19-2021 End: 07-19-2021 Subsequent hospital visit by physician Dat Morrow MD Work Phone: [facility] Comment on above: N92.5 Start: 07-17-2021 End: 07-17-2021 Subsequent hospital visit by physician Dat Morrow MD Work Phone: [facility] Comment on above: N92.5 Start: 03-13-2021 End: 03-14-2021 ambulatory NONE NONE Facility:[facility] Start: 03-08-2021 End: 03-08-2021 Patient encounter procedure GILLIAN VO [facility] Start: 04-02-2020 Patient encounter procedure Lencho Solis PA-C Work Phone: [facility] Start: 04-02-2020 Progress Note Lencho Zapata A-C Work Phone: [facility] Procedures Date Procedure Procedure Detail Performing Clinician Start: 11-19-2024 Gram stain microscopy N o Primary Care Physician Start: 11-19-2024 Source specific culture No Primary Care Physician Start: 11-19-2024 Urine culture No Primar y Care Physician Start: 09-01-2024 Urine culture No Primar y [...] HCV Quant by PCR testing - HCVPCR #[id number] Non Reactive: < 0.8 Equivocal: >/= 0.8 [...] - 214.0 Postmenopausal 0.0 - 0.1Performed at: [place] [id number] Director: Juan M Nielsen PhD, Phone: [phone] Start: 07-19-2024 Transvaginal obstetr ic ultrasonography No Primary Care Physician Start: 07-15-2024 Antibody screen MARCO ROMERO Comment on above: Order Comment: Speci men Type: BLOOD SPECIMEN Ordering Facility: [facility] Address: [address] [place] [address] Performed By: #### H CGED, [id number] #### [facility] CLIA [id number] [address] [place] [address] [place] Start: 04-12-2024 Urine test visual color cmprsn meths Domenico Long BOILER CONTROL ROOM OPERATOR-BANK ADVISOR Work Phone: Start: 04-12-2024 EAR CERUMEN REMOVAL Vern Long BOILER CONTROL ROOM OPERATOR-BANK ADVISOR Work Phone: Start: 04-12-2024 Iaadiadoo influenza Vern Long BOILER CONTROL ROOM OPERATOR-BANK ADVISOR Work Phone: Start: 04-12-2024 SARS-CoV-2 (COVID-19 ) Ag [Presence] in Respiratory specimen by Rapid immunoassay Domenico Long APRN-[facility] Work Phone: Start: 07-02-2023 Genital Culture AUTO GARAGE ATTENDANT-C Camila Dotson Work Phone: Start: 07-02-2023 Investigation of tra nsfusion reaction AUTO GARAGE ATTENDANT-C Esperanza Dotson Work Phone: Start: 2022 Bacteria identified in Urine by Culture Isi Mckeon Smooth BOILER CONTROL ROOM OPERATOR.[facility] Work Phone: Start: 2022 BACTERIAL VAGINOSIS NAAT Isi L Smooth BOILER CONTROL ROOM OPERATOR.[facility] Work Phone: Start: 2022 GONORRHEA/CHLAMYDIA NAAT Isi L Smooth BOILER CONTROL ROOM OPERATOR.[facility] Work Phone: Start: 2022 TRICHOMONAS VAGINALIS NAAT Isi L Smooth BOILER CONTROL ROOM OPERATOR.[facility] Work Phone: Start: 2022 Urine test visual color cmprsn meths Isi L Smooth BOILER CONTROL ROOM OPERATOR.[facility] Work Phone: Start: 07-20-2021 Antibody screen GABRIELLA MURRIETA Comment on above: Performed By: #### 1 [id number] #### [facility] [address] [place] [address] Start: 07-19-2021 Antibody screen rbc each serum [...] Work Phone: None (qualifier value) LIZ ALBERTO BOILER CONTROL ROOM OPERATOR-BANK ADVISOR Plan of Treatment Date Care Activity Detail Author Start: 2047 Zoster Vaccines (1 of 2) Zoste r Vaccines (1 of 2) [facility] Start: 10-12-2024 End: 10-12-2024 Evaluation of diagnostic study results [facility] Start: 10-11-2024 Complete blood count [facility] Start: 10-11-2024 Lactate dehydrogenas e measurement [facility] Start: 09-29-2024 [facility] Start: 09-01-2024 Bacteria identified in Urine by Culture Urine Culture [facility] Start: 09-01-2024 [facility] Start: 08-27-2024 CBC W Auto Different ial panel - Blood [facility] Start: 08-27-2024 Hemoglobin A1c/Hemoglobin.total in Blood [facility] Start: 08-27-2024 Hepatitis C antibody measurement [facility] Start: 08-27-2024 Rubella IgG measurement [facility] Start: 08-27-2024 Serologic test for syphilis [facility] Start: 08-27-2024 [facility] Start: 08-27-2024 Procedure [facility] Start: 07-25-2024 Bacteria identified in Urine by Culture Urine Culture [facility] Start: 07-25-2024 [facility] Start: 07-25-2024 [facility] Start: 11-09-2023 COVID-19 Vaccine ( season) COVID-19 Vaccine ( season) [facility] Start: 11-09-2023 Influenza vaccination Influenza Vacc ine (#1) [facility] Start: 11-08-2022 Influenza vaccination Influenza Vacc ine (#1) [facility] Start: 03-10-2022 Depression Assessment Depression Ass essment [facility] Start: 2022 End: 04-06-2022 Bacteria identified in Urine by Culture URINE CULTURE Microbiology Routine Dysuria Expected: 2022, Expires: 04/06/2022 [facility] Work Phone: Comment on above: Expected: 2022 , Expires: 04/06/2022 Start: 2022 End: 04-06-2022 Chlamydia trachomatis+Neisseria gonorrhoeae DNA [Presence] in Urine by PETER with probe detection GC/CHLAMYDIA AMPLIF, URINE Microbiology Routine Dysuria Vaginal discharge Expected: 2022, Expires: 04/06/2022 [facility] Work Phone: Comment on above: Expected: 2022 , Expires: 04/06/2022 Start: 11-08-2021 Influenza vaccination [facility] Start: 07-19-2021 Adolescent depressio n screening assessment Depression Screening [facility] Start: 07-19-2021 Hepatitis C screening Hepatitis C Sc reening [facility] Start: 07-19-2021 HIV screening HIV Screening [facility] Start: 07-19-2021 Screening for Chlamy edin trachomatis Gonorrhea/Chlamydia Screening [facility] Start: 07-19-2021 Social Influencers o f Health Screening Social Influencers of Health Screening [facility] Start: 03-10-2021 DEPRESSION ASSESSMENT DEPRESSION ASS ESSMENT [facility] Start: 11-10-2019 DTaP/Tdap/Td Vaccine s (2 - Td or Tdap) DTaP/Tdap/Td Vaccines (2 - Td or Tdap) [facility] Start: 2018 PAP TESTING PAP TESTING [facility] Start: 2018 Screening for malign ant neoplasm of cervix [facility] Start: 02-05-2016 DTaP,Tdap,and Td Vac cines (1 - Tdap) DTaP,Tdap,and Td Vaccines (1 - Tdap) [facility] Start: 02-05-2016 Hepatitis B Vaccines (1 of 3 - 19+ 3-dose series) Hepatitis B Vaccines (1 of 3 - 19+ 3-dose series) [facility] Start: 02-05-2016 Pneumococcal Vaccine : Pediatrics and At-Risk Adult Patients (1 of 2 - PCV) Pneumococcal Vaccine: Pediatrics and At-Risk Adult Patients (1 of 2 - PCV) [facility] Start: 02-05-2016 Urine microalbumin profile [facility] Start: 2015 HEPATITIS C SCREENING HEPATITIS C [facility] Start: 2015 Hepatitis C screening Hepatitis C [facility] Start: 2015 HIV SCREENING HIV SCREENING [facility] Start: 2011 PEDS TO ADULT TRANSI TION ANNUAL ASSESSMENT PEDS TO ADULT TRANSITION ANNUAL ASSESSMENT [facility] Start: 2010 Varicella vaccination Varicell a Vaccines (1 of 2 - 13+ 2-dose series) [facility] Start: 2009 Adult depression scr ning assessment DEPRESSION SCREENING [facility] Start: 2009 PEDS TO ADULT TRANSI TION INITIAL DISCUSSION PEDS TO ADULT TRANSITION INITIAL DISCUSSION [facility] Start: 02-05-2008 HPV VACCINE (1 - 2-d ose series) HPV VACCINE (1 - 2-dose series) [facility] Start: 02-05-2008 HPV Vaccines (1 - 2- dose series) HPV Vaccines (1 - 2-dose series) [facility] Start: 2007 MENINGOCOCCAL B: Con rn discharge based on risk (1 of 2 - Risk Bexsero 2-dose series) MENINGOCOCCAL B: Consider based on risk (1 of 2 - Risk Bexsero 2-dose series) [facility] Start: 2006 HPV Vaccine (1 - 2-d ose series) HPV Vaccine (1 - 2-dose series) [facility] Start: 2002 COVID-19 VACCINE (#1) COVID-19 VACCI NE (#1) [facility] Start: 2002 COVID-19 Vaccine (1) COVID-19 Vaccin e (1) [facility] Start: 1998 MMR Vaccines (1 of 1 - Standard series) MMR Vaccines (1 of 1 - Standard series) [facility] Start: 1997 COVID-19 Vaccine (#1) COVID-19 Vacci ne (#1) [facility] Start: 1997 HEPATITIS B (1 of 3 - 3-dose series) HEPATITIS B (1 of 3 - 3-dose series) [facility] Start: 1997 Hepatitis B Vaccine (1 of 3 - 3-dose series) Hepatitis B Vaccine (1 of 3 - 3-dose series) [facility] Start: 1997 HIV screening HIV Screening [facility] Start: 1997 Lipid panel Lipid Panel [facility] Start: 1997 Yearly Adult Physical Yearly Adult [place] Alanine aminotransfe rase [Enzymatic activity/volume] in Serum or Plasma [facility] Albumin [Mass/volume ] in Serum or Plasma [facility] Alkaline phosphatase [Enzymatic activity/volume] in Serum or Plasma [facility] Anion gap in Serum o r Plasma [facility] BACTERIAL VAGINOSIS AMPLIFICATION BACTERIAL VAGINOSIS AMPLIFICATION Lab Routine Vaginal discharge Ordered: 2022 [facility] Work Phone: Comment on above: Ordered: 2022 Bilirubin, total measurement [facility] BUN/Creatinine ratio [facility] Calcium [Mass/volume ] in Serum or Plasma [facility] HOMER / TRICHOMONA S AMPLIFICATION HOMER / TRICHOMONAS AMPLIFICATION Microbiology Routine Vaginal discharge Ordered: 2022 [facility] Work Phone: Comment on above: Ordered: 2022 Carbon dioxide, tota l [Moles/volume] in Central venous blood [facility] CBC W Auto Different ial panel - Blood [facility] CBC W Auto Different ial panel - Blood [facility] Chlamydia deoxyribon ucleic acid detection [facility] Chlamydia deoxyribon ucleic acid detection [facility] Comprehensive metabo lic 2000 panel - Serum or Plasma [facility] Creatinine [Mass/vol ume] in Serum or Plasma [facility] Drugs identified in Urine by Screen method [facility] Drugs identified in Urine by Screen method [facility] Drugs identified in Urine by Screen method [facility] Erythrocyte mean corpuscular volume determination [facility] Erythrocyte mean corpuscular volume determination [facility] Glucose [Mass/volume ] in Serum or Plasma [facility] Hematocrit [Volume Fraction] of Blood [facility] Hematocrit [Volume Fraction] of Blood [facility] Hemoglobin [Mass/vol ume] in Blood [facility] Hemoglobin [Mass/vol ume] in Blood [facility] Hemoglobin A1c/Hemoglobin.total in Blood [facility] Hepatitis B virus mackay rface Ag [Presence] in Serum [facility] Hepatitis C antibody measurement [facility] Leukocytes [#/volume ] in Blood [facility] Leukocytes [#/volume ] in Blood [facility] Liquid based cervica l cytology screening [facility] Mean corpuscular hemoglobin concentration determination [facility] Mean corpuscular hemoglobin concentration determination [facility] Mean corpuscular hemoglobin determination [facility] Mean corpuscular hemoglobin determination [facility] Measurement of renal function [facility] Neutrophil count [facility] Neutrophil percent differential count [facility] Patient Education ED, Migraine (Classical) [facility] Work Phone: Patient referral [facility] Work Phone: Platelets [#/volume] in Blood [facility] Platelets [#/volume] in Blood [facility] Potassium measurement [facility] Protein/Creatinine [ Ratio] in Urine [facility] Red blood cell count [facility] Red blood cell count [facility] Red cell distributio n width determination [facility] Red cell distributio n width determination [facility] Rubella IgG measurement [facility] Serologic test for syphilis [facility] Serum chloride measurement [facility] Sodium measurement [facility] Source specific culture [facility] Source specific culture [facility] Total protein measurement [facility] Urate [Mass/volume] in Serum or Plasma [facility] Urea nitrogen [Mass/volume] in Serum or Plasma [facility] Urine culture [facility] Urine culture [facility] Immunizations Immunization Date Immunization Notes Care Provider Caryl severino 05-15-2023 influenza virus vaccine, unspecified formulation Domenico GRANADOSBANK ADVISOR Work Phone: [facility] Work Phone: Payers Date Payer Category Payer Private Health Insurance [id number] 2024 Private Health Insurance [id number] 2024 Self-pay 2023 Managed Care (Private) [facility]MEL [facility]LEGAS [facility] PLAN [id number] 2022 Unknown [id number] 2019 Unknown [employer] PPO [id number] 2019-Present [phone] [address] [place] [address] PPO [id number] 2016 Private Health Insurance [facility] [id number] 2016-Present [address] [address] [place] [address] [id number]. [id number] 2016 Private Health Insurance [id number] .[id number]. [id number] 1997 Unknown [id number] 2.16.840.1.859962.3.579.2. 1143 1997 Unknown [id number] 2.16.840.1.840879.3.579.2. 1143 1997 Unknown [id number] 2.16.840.1.781886.3.579.2. 419 1997 Unknown [id number] 2.16.840.1.683261.3.579.2. 419 1997 Unknown [id number] 2.16.840.1.678407.3.579.2. 627 1997 Unknown [id number] 2.16.840.1.959960.3.579.2. 627 1997 Unknown [id number] 2.16.840.1.919238.3.579.2. 627 1997 Unknown [id number] 2.16.840.1.576296.3.579.2. 627 1997 Unknown [id number] 2.16.840.1.825117.3.579.2. 627 1997 Unknown [id number] 2.16.840.1.143465.3.579.2. 627 1997 Unknown [id number] 2.16840.1.779420.3.579.2. 479 1997 Unknown [id number] 2.840.1.149087.3.579.2. 479 1997 Unknown [id number] 2.16840.1.989972.3.579.2. 479 1997 Unknown [id number] 2.16.840.1.538869.3.579.2. 159 1959 Private Health Insurance [facility] [id number] Unknown [id number] 2.16840.1.504526.3.579.2. 283 Unknown [id number] 2.16840.1.516669.3.579.2. 462 Unknown [id number] 2.16840.1.658894.3.579.2. 462 Unknown [id number] 2.16.840.1.308589.3.579.2. 462 Unknown [id number] 2.16.840.1.316639.3.579.2. 462 Unknown [id number] 2.16.840.1.361686.3.579.2. 462 Unknown [id number] 2.16.840.1.062526.3.579.2. 462 Unknown [id number] 2.16.840.1.002546.3.579.2. 462 Unknown [id number] 2.16.840.1.756612.3.579.2. 462 Unknown [id number] 2.16.840.1.930630.3.579.2. 462 Unknown [id number] 2.16.840.1.774086.3.579.2. 462 Unknown [id number] 2.16.840.1.289197.3.579.2. 462 Unknown [id number] 2.16840.1.774604.3.579.2. 462 Unknown [id number] 2.840.1.070495.3.579.2. 462 Unknown [id number] 2.16840.1.680883.3.579.2. 462 Unknown [id number] 2.840.1.013165.3.579.2. 462 Unknown [id number] 2.840.1.813722.3.579.2. 462 Unknown [id number] 2.840.1.462217.3.579.2. 462 Unknown [id number] 2.16840.1.331137.3.579.2. 462 Unknown [id number] 2.16840.1.874467.3.579.2. 462 Unknown [id number] 2.16.840.1.822484.3.579.2. 462 Unknown [id number] 2.16840.1.255616.3.579.2. 462 Unknown [id number] 2.16840.1.465274.3.579.2. 462 Unknown [id number] 2.16840.1.032915.3.579.2. 462 Unknown [id number] 2.16.840.1.122314.3.579.2. 462 Unknown [id number] 2.16.840.1.463618.3.579.2. 462 Unknown [id number] 2.16.840.1.186474.3.579.2. 462 Unknown [id number] 2.16.840.1.147509.3.579.2. 462 Unknown [id number] 2.16.840.1.388296.3.579.2. 462 Unknown [id number] 2.16.840.1.043742.3.579.2. 462 Unknown [id number] 2.16.840.1.426662.3.579.2. 462 Unknown [id number] 2.16.840.1.493058.3.579.2. 462 Unknown [id number] 2.16.840.1.063941.3.579.2. 462 Social History Date Type Detail Facility Start: 04-20-2020 End: 02-15-2023 Never smoked tobacco (finding) [facility] Sex Assigned At [facility] Start: 06-22-2020 End: 10-11-2024 Tobacco smoking status NHIS Ex-smoker [facility] Start: 06-22-2020 End: 04-12-2024 Tobacco use and exposure Smokeless tobacco non-user [facility] Start: 1997 Sex Assigned At Not on file [facility] Start: 07-19-2021 Alcohol intake Lifetime non-d juan jose (finding) [facility] Start: 07-19-2021 History SDOH Alcohol Frequency 1 [facility] Start: 05-23-2020 End: 2022 Exposure to SARS-CoV-2 (event) Not sure [facility] History of tobacco use Current smoker [facility] Start: 2022 Alcohol intake Ex-drinker (finding) [facility] Start: 2022 End: 04-12-2024 History of Social function [facility] Start: 07-08-2017 End: 04-12-2024 Tobacco use panel [facility] National Score (1-100), lower number is lower risk Not on file [facility] Tobacco Nicotine Use: Va ping Product in Last 90 Days. Type: Electronic Cigarettes (Vaping). [facility] Start: 1997 Sex Assigned At Female [facility] Start: 04-12-2024 Tobacco smoking stat us NHIS Occasional tobacco smoker [facility] Work Phone: History of tobacco use Cigarette Smoker [facility] Work Phone: Functional Status Date Assessment Result Facility 02-21-[address] [facility] 02-21-[address] [facility] 02-15-[address] [facility] [facility] Functional Status Standard Safet y ID band on, Call device within reach, Wheels locked, Upper/Half-Length side-rails up, Bedside Cart Locked, Safety level maintained [facility] Mental Status Date Assessment Result Facility 09-29-2024 Cognitive function Level Of Cons ciousness Awake;Alert;Appropriate;Follow s Commands [facility] Work Phone: 02-21-2023 Mental Status Orientation Oriented x 4 [facility] 02-15-2023 Mental Status Orientation Oriented x 4 [facility] 02-15-2023 Mental Status [facility] Clinical Notes 04-02-2020 to 01-19-2025 Note Date & Type Note Facility 01-19-2025 Note HNO ID: [id number] Author: RIANA JANE MD Service: ? Author Type: Physician Type: Progress Notes Filed: 01/19/2025 12:48 Note Text: Family Medicine OUTPATIENT VISIT January 19, 2025 CC: Establish care HPI: 29 year old female patient with a history of PCOS Gestational hypertension History of splenic cyst Yeh parkinson white vs other arrhythmia workup up with cards. 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 Had gestational HTN but believes her home BP cuff was malfunctioning so does not currently have home BP monitoring. Review of Systems PAIN ASSESSMENT: Negative for pain, history of chronic pain, or current treatment for a chronic pain condition. GENERAL: No weight loss, or fevers HEENT: Negative for frequent or significant headaches RESPIRATORY: Negative for cough, wheezing, shortness of breath CARDIOVASCULAR: Negative for chest pain, palpitations, PND or orthopnea GI: No nausea, vomiting, or diarrhea or abdominal pain. No AZ bleeding or melana : No history of dysuria, frequency, urgency, or change in urine appearance NEURO: No history of headaches, numbness, weakness, or changes to vision or hearing Health maintenance: Hepatitis C Screening Never done HIV Screening Never done Hepatitis B Vaccine(1 of 3 - 19+ 3-dose series) Never done Cervical Cancer Screening Never done Allergies: ALLERGIES Allergen Reactions Contrast Dye [Gadol* Hives Medications: inositol/J-oawrf-rwqbmjow (OVASITOL PO) Take 2,000 mg by mouth two times a day. vit/iron fum/folic ac ( 03/10 ORAL) Take 1 tablet by mouth once daily. Blood Pressure Test Kit-Large Use as directed for blood pressure monitoring Past Medical History: PAST MEDICAL HISTORY Diagnosis Date Arrhythmia Follows with Dr[facility] PCOS (polycystic ovarian syndrome) Social History: SOCIAL HISTORY[1] Family History: Family History Problem Relation Age of Onset Diabetes Father Hyperlipidemia Father BP 144/92 Pulse 88 Temp 37.4 ?C (99.4 ?F) (Temporal) Resp 16 Ht 167.6 cm (5' 6) Wt 110.3 kg (243 lb 3.2 oz) LMP 12/28/2021 (Exact Date) SpO2 98% BMI 39.25 kg/m? 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 No abnormal posturing or positioning. Speech is normal. Strength grossly intact. RESP: Clear lungs bilateral with good air entry, No increased work of breathing CVS: RRR, No murmur. Pulses 2+. GI: Abdomen is soft, non distended, non tender. No masses or hepatomegaly appreciated. Skin/Other: No rashes or lesions. HEENT: pupils equal Extremities: No peripheral edema, swelling or erythema of lower extremities. Labs: Reviewed the following: Pertinent labs as outlined above Imaging: Reviewed the following: Reviewed recent pertinent imaging Assessment/Plan: ASSESSMENT/PLAN: 1. Encounter to establish care - ICD9: V65.8, ICD10: Z76.89 (primary diagnosis) Reviewed hx as above Nutritional labs due to malformation in most recent - LIPID PANEL, NONFASTING - HEMOGLOBIN A1C - HIV 1/2 COMBO WITH REFLEX TO DIFFERENTIATION - HEP REMOTE PANEL BL - VITAMIN D 25 HYDROXY - IRON AND TIBC - FERRITIN - VITAMIN B12 - TSH W/REFLEX FT4 2. Screening for depression - ICD9: V79.0, ICD10: Z13.31 - DEPRESSION SCREENING 3. Encounter for screening examination for other mental health and behavioral disorders - ICD9: V79.8, ICD10: Z13.39 - ANXIETY SCREENING 4. Splenic cyst - ICD9: 289.59, ICD10: D73.4 Hx of splenic cyst patient reports was due for monitoring - US ABD RIGHT UPPER QUADRANT 5. Elevated blood pressure reading without diagnosis of hypertension - ICD9: 796.2, ICD10: R03.0 - Encouraged dietary sodium restriction/DASH diet - Recommended regular aerobic exercise. - Recommend home blood pressure monitoring, to bring results in on next visit - Goal of BP <130/80 - BLOOD PRESSURE TEST KIT-LARGE CUFF Review at next visit 6. Class 2 obesity with body mass index (BMI) of 39.0 to 39.9 in adult, unspecified obesity type, unspecified whether serious comorbidity present - ICD9: 278.00, V85.39, ICD10: E66.812, Z68.39 Newly diagnosed - Behavioral intervention - CONSULT TO NUTRITION THERAPY Riana Jane Remainder of plan including medications to be continued as prior to this visit unless noted above. I will reach out if lab testing or imaging is abnormal and requires a change in the plan discussed above. Otherwise, we can review results at follow up. I discussed this with the patient and they are in agreement. Discussed with patient the importance of continuity of care. Follow up appointments as scheduled below. We discussed returning sooner if symptoms should (more content not included)... [facility] 10-11-2024 Progress note [facility] 09-01-2024 Progress note [facility] 09-01-2024 Progress note Note Date/Time September 01, 2024 4:30pm [facility]'s [address], [address] [place] [address] OFFICE VISIT Date of Service: 09/01/24 MR#: [id number] Acct: [id number] Name: JEFF RUSHING Rep #: [id number] : 1995 Provider: Dr. Caitlin Leigh DO Age/Sex: 29/F Location: [facility] Status: Signed Intake Vital Signs 07/27/24 11:04 08/27/24 13:02 09/01/24 15:46 09/01/24 15:49 Height 5 ft 8 in 5 ft 8 in 5 ft 8 in 5 ft 8 in Weight: 239 lb 2 oz BMI 36.3 BP 131/86 H Intake Visit Reasons: 12wk ob per JV Special Inspector Required: No Is patient in pain?: No Allergies Iodinated Contrast Media Allergy (Mild, Verified 09/01/24 15:46) Hives Medications ?Medication ?Instructions ?Recorded ?Confirmed ?Type progesterone micronized 200 mg 400 mg (2 x 200 mg) vag inal ONCE 07/06/24 09/01/24 Rx capsule (Prometrium) #60 caps multivit-min no.71-iron fum 28 cap PO 07/16/24 5 History mg-folate no.1 1 mg-dha 300 mg capsule (PNV-Easton) ondansetron 4 mg disintegrating 4 mg PO Q6H PRN nausea and 07/27/24 09/01/24 Rx tablet vomiting #30 tabs Last Menstrual Period: 05/29/24 Zika: Zika virus screening: Negative : No PFSH PFSH Medical History Recurrent loss Trichomonal vaginitis Seasonal allergies Shingles Cyst of spleen Surgical History [place] teeth removed Family History Grandmother Throat [...] physical activity do you participate in: none whitney/congregational: Jehovah'S Witness seatbelt use: always do you feel safe at home: Yes additional social history: Significant other - Franck History 3 Elective abortions Hx Para 0 Spontaneous abortions 2 Hx # Term Pregnancies Ectopic pregnancies Hx # Pregnancies Multiple births # of living children 0 Past Pregnancies Del. Date Name GA/Weeks Outcome Route Bth Weight Infant Gen Labor Lgth Anesthesia Del [facility] Provider FOB 06/10/20 chemical 4 [...] on 09/01/24 16: 03 Off Ur Spec Peggs 1.020 Last Edit by Aubree Carson on [...] smoking in distant past Z87.891 Anxiety F41.9 Jyocn-Lchnzakfh-Dicyc syndrome I45.6 at early stage Z34.90 Bicornuate [...] Quit 2021 (9) Anxiety: Status: Acute (10) Dfbuw-Fxefhgjyk-Mkhks syndrome: Status: Acute (11) at early stage: Status: Acute (12) Bicornuate uterus: Status: Acute (13) Hemorrhagic cyst of ovary: Status: Acute (14) Vaginal discharge: Status: Acute (15) PCOS (polycystic ovarian syndrome): Status: Acute Comment: per OAR 08/20/ Letrozole 2.5mg 12/07. conceived naturally Orders: Orders POC Urinalysis Dip (Clinic) Today O26.899 - Other specified related conditions, unspecified trimester, R30.0 - Dysuria Culture, Urine Today O26.899 - Other specified related conditions, unspecified trimester, R30.0 - Dysuria 09/01/24 1630 <Electronically signed by Diana Londono DO> Date _ Dianasonya Madsen Jourdan DO [facility] Signature: Date (if applicable) CC: ~ [facility] Work Phone: 1(803) 536-270806-09-2025 Progress [facility] [address] [place] [address], [address] [place] [address] OFFICE VISIT Date of Service: 08/16/24 MR#: [id number] Acct: [id number] Name: JEFF RUSHING Rep #: [id number] : 1995 Provider: SALLIE Borrego Age/Sex: 29/F Location: [facility] Status: Signed Intake Vital Signs 07/27/24 11:04 08/13/24 15:56 08/16/24 15:43 08/16/24 15:46 Height 5 ft 8 in 5 ft 8 in 5 ft 8 in 5 ft 8 in Weight: 238 lb 8 oz BMI 36.2 BP 145/87 H 130/93 H Intake Visit Reasons: 10wk ob per JV Special Inspector Required: No Is patient in pain?: No [...] mg-folate no.1 1 mg-dha 300 mg capsule (PNV-Easton) cephalexin 500 mg capsule 500 mg PO Q12H 5 days #10 ca ps 07/25/24 08/16/24 Rx ondansetron 4 mg disintegrating 4 mg PO Q6H PRN nausea and 07/27/24 08/16/24 Rx tablet vomiting #30 tabs Last Menstrual Period: 05/29/24 Zika: Zika virus screening: Negative : No PFSH PFSH Medical History Recurrent loss Trichomonal vaginitis Seasonal allergies Shingles Cyst of spleen Surgical History [place] teeth removed Family History Grandmother Throat [...] physical activity do you participate in: none whitney/congregational: Jehovah'S Witness seatbelt use: always do you feel safe at home: Yes additional social history: Significant other - Franck History 3 Elective abortions Hx Para 0 Spontaneous abortions 2 Hx # Term Pregnancies Ectopic pregnancies Hx # Pregnancies Multiple births # of living children 0 Past Pregnancies Del. Date Name GA/Weeks Outcome Route Bth Weight Gen Labor Lgth Anesthesia Del [facility] Provider FOB 06/10/20 chemical 4 spontaneous 07/16/212021 [...] smoking in distant past Z87.891 Anxiety F41.9 Valga-Odjpsacij-Dwghd syndrome I45.6 at early stage Z34.90 Bicornuate [...] Quit 2021 (9) Anxiety: Status: Acute (10) Thbwh-Ppuywafbr-Wcyhy syndrome: Status: Acute (11) at early stage: [...] GA appropriate handout given. 08/16/24 1608 s CNM> Date _ Aaliyah Elmo SALLIE Cosigner Signature: Date (if applicable) CC: ~ [facility]06-09-2025 Progress note Author Aaliyah Borrego [facility] Note Date/Time August 16, 2024 4:08p m [facility] [address], [address] [place] [address] OFFICE VISIT Date of Service: 08/16/24 MR#: [id number] Acct: [id number] Name: JEFF RUSHING Rep #: [id number] : 1995 Provider: SALLIE Borrego Age/Sex: 29/F Location: [facility] Status: Signed Intake Vital Signs 07/27/24 11:04 08/13/24 15:56 08/16/24 15:43 08/16/24 15:46 Height 5 ft 8 in 5 ft 8 in 5 ft 8 in 5 ft 8 in Weight: 238 lb 8 oz BMI 36.2 BP 145/87 H 130/93 H Intake Visit Reasons: 10wk ob per JV Special Inspector Required: No Is patient in pain?: No [...] mg-folate no.1 1 mg-dha 300 mg capsule (PNV-Easton) cephalexin 500 mg capsule 500 mg PO Q12H 5 days #10 ca ps 07/25/24 08/16/24 Rx ondansetron 4 mg disintegrating 4 mg PO Q6H PRN nausea and 07/27/24 08/16/24 Rx tablet vomiting #30 tabs Last Menstrual Period: 05/29/24 Zika: Zika virus screening: Negative : No PFSH PFSH Medical History Recurrent loss Trichomonal vaginitis Seasonal allergies Shingles Cyst of spleen Surgical History [place] teeth removed Family History Grandmother Throat [...] physical activity do you participate in: none whitney/congregational: Jehovah'S Witness seatbelt use: always do you feel safe at home: Yes additional social history: Significant other - Franck History 3 Elective abortions Hx Para 0 Spontaneous abortions 2 Hx # Term Pregnancies Ectopic pregnancies Hx # Pregnancies Multiple births # of living children 0 Past Pregnancies Del. Date Name GA/Weeks Outcome Route Bth Weight Infant Gen Labor Lgth Anesthesia Del [facility] Provider FOB 06/10/20 chemical 4 spontaneous 07/16/212021 [...] -?-?-?-?-?-?-?-?-?-?-?-?- Negative 176 -?-?-?-?-?-?-?-?-?-?-?-?- KW- no vb/luiza ng. is going to start doing home [...] smoking in distant past Z87.891 Anxiety F41.9 Jprkd-Qgchkwonr-Juvyr syndrome I45.6 at early stage Z34.90 Bicornuate [...] Quit 2021 (9) Anxiety: Status: Acute (10) Zdwbt-Gtogqyynl-Qlibx syndrome: Status: Acute (11) at early stage: [...] this visit. GA appropriate handout given. 08/16/24 3459 <Electronically signed by Aaliyah maciel CNM> Date _ Aaliyah Elmo RIZO Cosigner Signature: Date (if applicable) CC: ~ [facility] Work Phone: 1(178) 240-539206-06-2025 Evaluation note* Diagnosis Onset Date Resolution Status Admit Date Anxiety acute August 13, 2024 3:43pm Bicornuate uterus acute August 3:43pm History of recurrent miscarriages acute August 13, 2024 3 :43pm Zzgca-Vsjglopuk-Bvoyg syndrome acute August 13, 2024 3 :43pm Former smoker, stopped smoking in distant past resolved August 3:43pm Hemorrhagic cyst of ovary resolved August 13, 2024 3:43pm History of marijuana use resolved August 13, 2024 3:43pm History of nicotine vaping resolved August 13, 2024 3:43pm PCOS (polycystic ovarian syndrome) resolved August 13, 2024 3 :43pm at early stage resolved August 13, 2024 3:43pm Spotting in early resolved August 13, 2024 3:43pm Vaginal discharge resolved August 3:43pm Obesity affecting inactive August 13, 2024 3:43pm inactive August 13, 2024 3:43pm Supervision of high-risk inactive August 13, 2024 3 :43pm Anxiety acute August 16, 2024 3:41pm Bicornuate uterus acute August 3:41pm History of recurrent miscarriages acute August 16, 2024 3 :41pm Kkixx-Mxbmvstnn-Ndcjx syndrome acute August 16, 2024 3 :41pm Former smoker, stopped smoking in distant past resolved August 3:41pm Hemorrhagic cyst of ovary resolved August 16, 2024 3:41pm History of marijuana use resolved August 16, 2024 3:41pm History of nicotine vaping resolved August 16, 2024 3:41pm PCOS (polycystic ovarian syndrome) resolved August 16, 2024 3 :41pm at early stage resolved August 16, 2024 3:41pm Spotting in early resolved August 16, 2024 3:41pm Vaginal discharge resolved August 3:41pm Obesity affecting inactive August 16, 2024 3:41pm inactive August 16, 2024 3:41pm Supervision of high-risk inactive August 16, 2024 3 :41pm Anxiety acute August 27 1:59pm Bicornuate uterus acute August 272024 1:59pm History of recurrent miscarriages acute August 27, 2024 1:59pm Efdox-Gisjrqfwy-Aomem syndrome acute August 27, 2024 1:59pm Former smoker, stopped smoking in distant past resolved August 1:59pm Hemorrhagic cyst of ovary resolved August 27, 2024 1:59pm History of marijuana use resolved August 27, 2024 1:59pm History of nicotine vaping resolved August 27, 2024 1:59pm PCOS (polycystic ovarian syndrome) resolved August 27, 2024 1:59pm at early stage resolved August 27, 2024 1:59pm Spotting in early resolved August 27, 2024 1:59pm Vaginal discharge resolved August 272024 1:59pm Obesity affecting inactive August 27, 2024 1:59pm inactive August 27 1:59pm Supervision of high-risk inactive August 27, 2024 1:59pm Anxiety acute September 01 3:40pm Bicornuate uterus acute September 012024 3:40pm History of recurrent miscarriages acute September 01, 2024 3:40pm Qpvzc-Ytwymtufx-Ihrhr syndrome acute September 01, 2024 3:40pm Former smoker, stopped smoking in distant past resolved August 3:40pm Hemorrhagic cyst of ovary resolved September 01, 2024 3:40pm History of marijuana use resolved September 01, 2024 3:40pm History of nicotine vaping resolved September 01, 2024 3:40pm PCOS (polycystic ovarian syndrome) resolved September 01, 2024 3:40pm at early stage resolved September 01, 2024 3:40pm Spotting in early resolved September 01, 2024 3:40pm Vaginal discharge resolved September 012024 3:40pm Obesity affecting inactive September 01, 2024 3:40pm inactive September 01 3:40pm Supervision of high-risk inactive September 01, 2024 3:40pm Anxiety acute October 01 11:29am Bicornuate uterus acute October 012024 11:29am History of recurrent miscarriages acute October 01, 2024 11:29am Migraine headache acute October 012024 11:29am Ilaqt-Shfosjhqv-Wbpnw syndrome acute October 01, 2024 11:29am Former smoker, stopped smoking in distant past resolved September 11:29am Hemorrhagic cyst of ovary resolved October 01, 2024 11:29am History of marijuana use resolved October 01, 2024 11:29am History of nicotine vaping resolved October 01, 2024 11:29am PCOS (polycystic ovarian syndrome) resolved October 01, 2024 11:29am at early stage resolved October 01, 2024 11:29am Spotting in early resolved October 01, 2024 11:29am Vaginal discharge resolved October 012024 11:29am Obesity affecting inactive October 01, 2024 11:29am inactive October 01 11:29am Supervision of high-risk inactive October 01, 2024 11:29am Anxiety acute October 11 12:58pm Bicornuate uterus acute October 11, 2024 12:58pm History of recurrent miscarriages acute October 11, 2024 12:58pm Migraine headache acute October 11, 2024 12:58pm Lhxyf-Vahvbmhek-Jkjmi syndrome acute October 11, 2024 12:58pm Chronic hypertension affecting inactive October 11, 2024 12:58pm Obesity affecting inactive October 11, 2024 12:58pm inactive October 11 12:58pm Supervision of high-risk inactive October 11, 2024 12:58pm Concealed Oyyzi-Fnvmmpbxw-Fgjcl (WPW) pattern acute October 12, 2024 1:40pm Palpitations acute October 12, 2024 1:40pm Chronic hypertension affecting inactive October 12, 2024 1:40pm Vaginal odor acute November 192024 9:04am [facility] Work Phone: 1(291) 883-100805-20-2025 Evaluation note* Diagnosis Onset Date Resolution Status [...] 1 0:11am Vaginal discharge acute July 10:11am Nnpfr-Aafxqeqxn-Ukihm syndrome acute July 27, 2024 10:11am Asymptomatic bacteriuria dur ing inactive July 27, 2024 1 0:11am Vaginal bleeding affecting early inactive July 27, 2024 1 0:11am [facility] Work Phone: 1(277) 570-900205-20-2025 Evaluation note* Diagnosis Onset Date Resolution Status Admit Date Anxiety acute July 27, 2024 10:11am Bicornuate uterus acute July 10:11am History of recurrent miscarriages acute July 27, 2024 1 0:11am Femse-Rvavvigzg-Rvfwn syndrome acute July 27, 2024 10:11am Former smoker, stopped smoki ng in distant past resolved July 27, 2024 1 0:11am Hemorrhagic cyst of ovary resolved July 27, 2024 10:11am History of marijuana use resolved July 27, 2024 10:11am History of nicotine vaping resolved July 27, 2024 10:11am PCOS (polycystic ovarian syndrome) resolved July 27, 2024 1 0:11am at early stage resolved July 27, 2024 10:11am Spotting in early resolved July 27, 2024 10:11am Vaginal discharge resolved July 10:11am Asymptomatic bacteriuria during inactive July 27, 2024 10:11am Obesity affecting inactive July 27, 2024 10:11am inactive July 27, 2024 10:11am Supervision of high-risk inactive July 27, 2024 1 0:11am Vaginal bleeding affecting early inactive July 27, 2024 1 0:11am Anxiety acute August 03, 2024 2:51pm Bicornuate uterus acute July 2:51pm History of recurrent miscarriages acute August 03, 2024 2 :51pm Ixhqi-Dzgkgsucd-Kdote syndrome acute August 03, 2024 2:51pm Former smoker, stopped smoki ng in distant past resolved August 03, 2024 2 :51pm Hemorrhagic cyst of ovary resolved August 03, 2024 2:51pm History of marijuana use resolved August 03, 2024 2:51pm History of nicotine vaping resolved August 03, 2024 2:51pm PCOS (polycystic ovarian syndrome) resolved August 03, 2024 2 :51pm at early stage resolved August 03, 2024 2:51pm Spotting in early resolved August 03, 2024 2:51pm Vaginal discharge resolved July 2:51pm Obesity affecting inactive August 03, 2024 2:51pm inactive August 03, 2024 2:51pm Supervision of high-risk inactive August 03, 2024 2 :51pm Anxiety acute August 09, 2024 1:57pm Bicornuate uterus acute August 1:57pm History of recurrent miscarriages acute August 09, 2024 1 :57pm Fwkle-Vhhaljcdx-Guzaq syndrome acute August 09, 2024 1:57pm Former smoker, stopped smoki ng in distant past resolved August 09, 2024 1 :57pm Hemorrhagic cyst of ovary resolved August 09, 2024 1:57pm History of marijuana use resolved August 09, 2024 1:57pm History of nicotine vaping resolved August 09, 2024 1:57pm PCOS (polycystic ovarian syndrome) resolved August 09, 2024 1 :57pm at early stage resolved August 09, 2024 1:57pm Spotting in early resolved August 09, 2024 1:57pm Vaginal discharge resolved August 1:57pm Obesity affecting inactive August 09, 2024 1:57pm inactive August 09, 2024 1:57pm Supervision of high-risk inactive August 09, 2024 1 :57pm Anxiety acute August 13, 2024 3:43pm Bicornuate uterus acute August 3:43pm History of recurrent miscarriages acute August 13, 2024 3 :43pm Sackp-Gbgeiievq-Sylmo syndrome acute August 13, 2024 3:43pm Former smoker, stopped smoki ng in distant past resolved August 13, 2024 3 :43pm Hemorrhagic cyst of ovary resolved August 13, 2024 3:43pm History of marijuana use resolved August 13, 2024 3:43pm History of nicotine vaping resolved August 13, 2024 3:43pm PCOS (polycystic ovarian syndrome) resolved August 13, 2024 3 :43pm at early stage resolved August 13, 2024 3:43pm Spotting in early resolved August 13, 2024 3:43pm Vaginal discharge resolved August 3:43pm Obesity affecting inactive August 13, 2024 3:43pm inactive August 13, 2024 3:43pm Supervision of high-risk inactive August 13, 2024 3 :43pm Anxiety acute August 16, 2024 3:41pm Bicornuate uterus acute August 3:41pm History of recurrent miscarriages acute August 16, 2024 3 :41pm Glyio-Lysrpapaw-Ziaab syndrome acute August 16, 2024 3:41pm Former smoker, stopped smoki ng in distant past resolved August 16, 2024 3 :41pm Hemorrhagic cyst of ovary resolved August 16, 2024 3:41pm History of marijuana use resolved August 16, 2024 3:41pm History of nicotine vaping resolved August 16, 2024 3:41pm PCOS (polycystic ovarian syndrome) resolved August 16, 2024 3 :41pm at early stage resolved August 16, 2024 3:41pm Spotting in early resolved August 16, 2024 3:41pm Vaginal discharge resolved August 3:41pm Obesity affecting inactive August 16, 2024 3:41pm inactive August 16, 2024 3:41pm Supervision of high-risk inactive August 16, 2024 3 :41pm Anxiety acute August 27 1:59pm Bicornuate uterus acute August 272024 1:59pm History of recurrent miscarriages acute August 27, 2024 1:59pm Iildj-Zdlyhhksf-Npjdk syndrome acute August 27, 2024 1:59pm Former smoker, stopped smoki ng in distant past resolved August 27, 2024 1:59pm Hemorrhagic cyst of ovary resolved August 27, 2024 1:59pm History of marijuana use resolved August 27, 2024 1:59pm History of nicotine vaping resolved August 27, 2024 1:59pm PCOS (polycystic ovarian syndrome) resolved August 27, 2024 1:59pm at early stage resolved August 27, 2024 1:59pm Spotting in early resolved August 27, 2024 1:59pm Vaginal discharge resolved August 272024 1:59pm Obesity affecting inactive August 27, 2024 1:59pm inactive August 27 1:59pm Supervision of high-risk inactive August 27, 2024 1:59pm Anxiety acute September 01 3:40pm Bicornuate uterus acute September 012024 3:40pm History of recurrent miscarriages acute September 01, 2024 3:40pm Pvamz-Mbqvfclxg-Ldpwc syndrome acute September 01, 2024 3:40pm Former smoker, stopped smoki ng in distant past resolved September 01, 2024 3:40pm Hemorrhagic cyst of ovary resolved September 01, 2024 3:40pm History of marijuana use resolved September 01, 2024 3:40pm History of nicotine vaping resolved September 01, 2024 3:40pm PCOS (polycystic ovarian syndrome) resolved September 01, 2024 3:40pm at early stage resolved September 01, 2024 3:40pm Spotting in early resolved September 01, 2024 3:40pm Vaginal discharge resolved September 012024 3:40pm Obesity affecting inactive September 01, 2024 3:40pm inactive September 01 3:40pm Supervision of high-risk inactive September 01, 2024 3:40pm Anxiety acute October 01 11:29am Bicornuate uterus acute October 012024 11:29am History of recurrent miscarriages acute October 01, 2024 11:29am Migraine headache acute October 012024 11:29am Rlugf-Xbeucdwtj-Yddeu syndrome acute October 01, 2024 11:29am Former smoker, stopped smoki ng in distant past resolved October 01, 2024 11:29am Hemorrhagic cyst of ovary resolved October 01, 2024 11:29am History of marijuana use resolved October 01, 2024 11:29am History of nicotine vaping resolved October 01, 2024 11:29am PCOS (polycystic ovarian syndrome) resolved October 01, 2024 11:29am at early stage resolved October 01, 2024 11:29am Spotting in early resolved October 01, 2024 11:29am Vaginal discharge resolved October 012024 11:29am Obesity affecting inactive October 01, 2024 11:29am inactive October 01 11:29am Supervision of high-risk inactive October 01, 2024 11:29am Anxiety acute October 11 12:58pm Bicornuate uterus acute October 11, 2024 12:58pm History of recurrent miscarriages acute October 11, 2024 12:58pm Migraine headache acute October 11, 2024 12:58pm Xytya-Prbrmmmnq-Smtrp syndrome acute October 11, 2024 12:58pm Chronic hypertension affecti ng inactive October 11, 2024 12:58pm Obesity affecting inactive October 11, 2024 12:58pm inactive October 11 12:58pm Supervision of high-risk inactive October 11, 2024 12:58pm Concealed Znuxp-Rkhaopfdh-Xinxj (WPW) pattern acute October 12, 2024 1:40pm Palpitations acute October 12, 2024 1:40pm Chronic hypertension affecti ng inactive October 12, 2024 1:40pm [facility] Work Phone: 1(630) 673-610905-20-2025 Progress [facility] [address] [place] [address], [address] [place] [address] OFFICE VISIT Date of Service: 07/27/24 MR#: [id number] Acct: [id number] Name: JEFF RUSHING Rep #: [id number] : 1995 Provider: Dr. Caitlin Leigh DO Age/Sex: 29/F Location: [facility] Status: Signed Intake Vital Signs 10/17/23 10:44 07/16/24 14:24 07/25/24 11:13 07/27/24 10:15 07/27/24 10:15 Height 5 ft 8 in 5 ft 8 in 5 ft 8 in 5 ft 8 in 5 ft 8 in Weight: 234 lb 2 oz BMI 35.6 BP 138/88 H Intake Visit Reasons: NOB: LMP 05/29/24, JYOTHI 03/05/25 Special Inspector Required: No Is patient in pain?: No [...] mg-folate no.1 1 mg-dha 300 mg capsule (PNV-Easton) cephalexin 500 mg capsule 500 mg PO Q12H 5 days #10 ca ps 07/25/24 07/27/24 Rx ondansetron 4 mg disintegrating 4 mg PO Q6H PRN nausea and 07/27/24 07/27/24 Rx tablet vomiting #30 tabs Last Menstrual Period: 05/29/24 Zika: Zika virus screening: Negative : No PFSH PFSH Medical History Recurrent loss Trichomonal vaginitis Seasonal allergies Shingles Cyst of spleen Surgical History [place] teeth removed Family History Grandmother Throat [...] physical activity do you participate in: none whitney/congregational: Jehovah'S Witness seatbelt use: always do you feel safe [...] (Rh) Sensitized, Pulmonary (e.g.,TB,Asthma), Drug/latex allergies/reactions, Breast, Certified Industrial Hygienist surgery, Anesthetic complications, History of abnormal pap, [...] comfortable and no acute distress Orientation: alert [facility] Head: normal to inspection, normocephalic and [...] smoking in distant past Z87.891 Anxiety F41.9 Pmsxz-Xzakkkgcc-Ufjep syndrome I45.6 at early stage Z34.90 Bicornuate [...] Quit 2021 (11) Anxiety: Status: Acute (12) Oqvww-Uzumsbmzu-Bmhrc syndrome: Status: Acute (13) at early stage: [...] Monique Signature: Date (if applicable) CC: ~ [facility]05-19-2025 Hospital Discharge instructions Additional Instructions Follow-up with your SOFTWARE SALES in the outpatient setting call them on Friday for a follow-up appointment and see if they want you to be seen tomorrow versus at your scheduled appointment on Friday. You are placed on pelvic rest no sex and do not insert anything in your vagina. Follow-up on urine culture with your SOFTWARE SALES and take antibiotics as prescribed. [facility] with any other [facility] Work Phone: 1(305) 276-319805-18-2025 Discharge summary [facility] Medical Records Department [address] [place] [address] Emergency Department Summary 07/25/24 MR#: [id number] Acct: [id number] Name: JEFF RUSHING Rep #:[id number] : 1995 29 From: Margarito Huston DO [...] some heavier bleeding therefore she called her SOFTWARE SALES and they advised her to come here for further evaluation management. Patient states that she is not have any pain right now. [facility] Medical History Recurrent loss Trichomonal [...] mg-folate no.1 1 mg-dha 300 mg capsule (PNV-Easton) cephalexin 500 mg capsule 500 mg PO Q12H 5 days #10 ca ps 07/25/24 Unknown Rx Allergy/AdvReac Type Severity Reaction Status Date / Time Iodinated Contrast Media Allergy Mild Hives Verified 07/25/24 11:13 Family History Grandmother Throat cancer, Onset Age: 68 Maternal Grandfather Lung cancer Maternal, smoker-onset age unknown Father Diabetes Hypertension Myocardial infarction Surgical History [place] teeth removed Social History adopted: No [...] physical activity do you participate in: none whitney/congregational: Jehovah'S Witness seatbelt use: always do you feel safe [...] follow commands knew that she was at [facility] 2024 Skin: Warm, dry, intact no rashes [...] called and discussed the case with on-call SOFTWARE SALES Dr. Vu who states the patient to [...] % (Auto) 58.7 Lymph % (Auto) 35.0 Loup % (Auto) 5.1 Eos % (Auto) 0.6 [...] Albumin/Globulin Ratio 1.5 Lipase 17 HCG, Quant 16066 H Serum , Qual POSITIVE Urine Color Yellow Urine Clarity Sl. Cloudy Urine pH 6.5 Ur Specific Peggs 1.015 Urine Protein 30 H Urine Glucose [...] live intrauterine . Reading Location: [facility] Discharge Plan Triage Chief Complaint: Vag Bld, Preg ED Provider: Margarito Huston Dx/Rx/DC Orders Clinical Impression: Vaginal bleeding affecting early , Asymptomatic bacteriuria during Prescriptions: New cephalexin 500 mg capsule 500 mg PO Q12H 5 Days Qty: 10 0RF No Action PNV-Easton 28-1-300 mg capsule PO aspirin [Adult Low Dose Aspirin] 81 mg tablet,delayed release (DR/EC) 81 mg PO QDAY progesterone micronized [Prometrium] 200 mg capsule 400 mg vaginal ONCE Qty: 60 4RF Rx Instructions: Vaginal nightly until 16 weeks Primary Care Provider: Care Physician,No Primary Referrals: Care Physician,No Primary [Primary Care Provider] - Activity Restrictions/Additional Instructions: Follow-up with your SOFTWARE SALES in the outpatient setting call them on Friday for a follow-up appointment and see if they want you to be seen tomorrow versus at your scheduled appointment on Friday. You are placed on pelvic rest no sex anddo not insert anything in your vagina. Follow-up on urine culture with your SOFTWARE SALES and take antibiotics as prescribed. Return with any other concerns Print Language: Guyanese Disposition Disposition: Home, Self Care What to do if you have Problems For any increased pain, shortness of breath, bleeding, nausea or vomiting, chestpain, or any unexpected problems, contact your Primary Care Provider. Call [facility] ([phone]) or report tothe closest Emergency Room. Call 911 if necessary. 07/25/24 1321 Cosigner Signature (if applicable): CC: No Primary Care Physician ~ Signed [facility]05-18-2025 Radiology Diagnostic study note [facility] Imaging Services [address] [place] [address] Transvaginal w/Preg US MR#: [id number] Acct: [id number] Name: JEFF RUSHING Rep #: [id number] : 1995 F 29 From: Argenis Varghese MD PCP: Care Physician,No Primary Status: REG ER Study:Transvaginal w/Preg US Date of Exam: 07/25/24 Exam# [id number] Ordering Dr: Melchor Huston DO EXAM: US [...] live intrauterine . Reading Location: [facility] CC: Dr. Margarito Huston DO; No Primary Care Physician ~ Monotype Keyboard Operator: Signed [facility]05-12-2025 Radiology Diagnostic study note [facility] Imaging Services [address] [place], [place] [address] Transvaginal w/Preg US MR#: [id number] Acct: [id number] Name: JEFF RUSHING Rep #: [id number] : 1995 F 29 From: Randy Gibson MD PCP: Care Physician,No Primary Status: REG CLI Study:Transvaginal w/Preg US Date of Exam: 07/19/24 Exam# [id number] Ordering Dr: Aaliyah Borrego CNM PROCEDURE: TRANSVAGINAL [...] seen in the right ovary. Reading Location: [id number] CC: SALLIE Borrego; No Primary Care Physician ~ Monotype Keyboard Operator: Signed [facility]05-09-2025 Evaluation note* Diagnosis Onset Date Resolution Status [...] 1: 06pm Vaginal discharge acute July 1:06pm Rmeva-Jrnixlohp-Jajyu syndrome acute July 16, 2024 1:06pm Anxiety [...] 1 0:11am Vaginal discharge acute July 10:11am Zwpjg-Lbeagdoji-Auunn syndrome acute July 27, 2024 10:11am Asymptomatic [...] 2 :51pm Vaginal discharge acute July 2:51pm Nvudm-Qtvxgbstz-Uxmuy syndrome acute August 03, 2024 2:51pm [facility] Work Phone: [phone]) 478-216805-09-2025 Evaluation note* Diagnosis Onset Date Resolution Status [...] 1: 06pm Vaginal discharge acute July 1:06pm Tsxgb-Easqvuujc-Vfkqm syndrome acute July 16, 2024 1:06pm Anxiety [...] 1 0:11am Vaginal discharge acute July 10:11am Nyylh-Csolnglrs-Yrhaa syndrome acute July 27, 2024 10:11am Asymptomatic [...] 2 :51pm Vaginal discharge acute July 2:51pm Udymj-Lnxpbgxmw-Hsfdj syndrome acute August 03, 2024 2:51pm Anxiety [...] 1 :57pm Vaginal discharge acute August 1:57pm Uggov-Ofqzqsuyk-Dzrhe syndrome acute August 09, 2024 1:57pm [facility] Work Phone: [phone] 583-964905-09-2025 Evaluation note* Diagnosis Onset Date Resolution Status [...] 1: 06pm Vaginal discharge acute July 1:06pm Rrssz-Vrdpkgins-Cuckh syndrome acute July 16, 2024 1:06pm Anxiety [...] 1 0:11am Vaginal discharge acute July 10:11am Tnagl-Laxqdzhif-Benco syndrome acute July 27, 2024 10:11am Asymptomatic [...] 2 :51pm Vaginal discharge acute July 2:51pm Tnppp-Lfprqsfwz-Sgszs syndrome acute August 03, 2024 2:51pm Anxiety [...] 1 :57pm Vaginal discharge acute August 1:57pm Ctcxk-Dshubqwil-Azadq syndrome acute August 09, 2024 1:57pm Anxiety [...] 3 :43pm Vaginal discharge acute August 3:43pm Zssqs-Dpwqvrzcw-Gdvur syndrome acute August 13, 2024 3:43pm [facility] Work Phone: [phone] 330-807405-09-2025 Evaluation note* Diagnosis Onset Date Resolution Status [...] 1: 06pm Vaginal discharge acute July 1:06pm Itsyt-Yqrtfafqb-Rosxa syndrome acute July 16, 2024 1:06pm Anxiety [...] 1 0:11am Vaginal discharge acute July 10:11am Zxidu-Zrzhndbyc-Jpnyn syndrome acute July 27, 2024 10:11am Asymptomatic [...] 2 :51pm Vaginal discharge acute July 2:51pm Kdlax-Qnzgrpbyj-Ojkru syndrome acute August 03, 2024 2:51pm Anxiety [...] 1 :57pm Vaginal discharge acute August 1:57pm Xbxls-Xvxcobbxx-Sxitc syndrome acute August 09, 2024 1:57pm Anxiety [...] 3 :43pm Vaginal discharge acute August 3:43pm Ahlwq-Xllicwcfv-Bipfo syndrome acute August 13, 2024 3:43pm Anxiety [...] 3 :41pm Vaginal discharge acute August 3:41pm Ljfje-Kxijigqlo-Ngdlv syndrome acute August 16, 2024 3:41pm [facility] Work Phone: [phone]) 992-670505-09-2025 Evaluation note* Diagnosis Onset Date Resolution Status [...] 1: 06pm Vaginal discharge acute July 1:06pm Ponjx-Njxdfcihp-Mrcur syndrome acute July 16, 2024 1:06pm Anxiety [...] 1 0:11am Vaginal discharge acute July 10:11am Nuudn-Adukmufda-Lpbfw syndrome acute July 27, 2024 10:11am Asymptomatic [...] 2 :51pm Vaginal discharge acute July 2:51pm Jumkm-Rdrtcfqjy-Ghzah syndrome acute August 03, 2024 2:51pm Anxiety [...] 1 :57pm Vaginal discharge acute August 1:57pm Anrsp-Kalcpddyj-Ooljz syndrome acute August 09, 2024 1:57pm Anxiety [...] 3 :43pm Vaginal discharge acute August 3:43pm Eopee-Wfwkfhcxu-Iaqrw syndrome acute August 13, 2024 3:43pm Anxiety [...] 3 :41pm Vaginal discharge acute August 3:41pm Ftfwi-Upvvinkfv-Yanuo syndrome acute August 16, 2024 3:41pm Anxiety [...] 1:59pm Vaginal discharge acute August 272024 1:59pm Jpaag-Srysmvbcz-Dmdjh syndrome acute August 27, 2024 1:59pm [facility] Work Phone: 1([phone]) 780-569305-09-2025 Evaluation note* Diagnosis Onset Date Resolution Status [...] 1: 06pm Vaginal discharge acute July 1:06pm Tpzgi-Iftajkrht-Bbuon syndrome acute July 16, 2024 1:06pm Anxiety [...] 1 0:11am Vaginal discharge acute July 10:11am Sgyes-Adbfwabpj-Faybv syndrome acute July 27, 2024 10:11am Asymptomatic [...] 2 :51pm Vaginal discharge acute July 2:51pm Ewtlq-Qhhwmvtuo-Knuap syndrome acute August 03, 2024 2:51pm Anxiety acute August 09, 2024 1:57pm Bicornuate uterus acute August d2024 1:57pm Former smoker, stopped smoki ng in [...] 1 :57pm Vaginal discharge acute August 1:57pm Nzgln-Ixfxubyce-Zojaf syndrome acute August 09, 2024 1:57pm Anxiety [...] 3 :43pm Vaginal discharge acute August 3:43pm Tjcte-Jumwrpsnb-Xetry syndrome acute August 13, 2024 3:43pm Anxiety [...] 3 :41pm Vaginal discharge acute August 3:41pm Dczds-Vluzbqvla-Hqwqg syndrome acute August 16, 2024 3:41pm Anxiety [...] 1:59pm Vaginal discharge acute August 272024 1:59pm Ohyup-Lvobktuqx-Nlxxw syndrome acute August 27, 2024 1:59pm Anxiety [...] 3:40pm Vaginal discharge acute September 012024 3:40pm Egwqm-Nlqrdvtpy-Godic syndrome acute September 01, 2024 3:40pm [facility] Work Phone: 1([phone]) 242-551805-09-2025 Evaluation note* Diagnosis Onset Date Resolution Status Admit Date Anxiety acute July 16, 2024 1:06pm Bicornuate uterus acute July 1:06pm History of recurrent miscarriages acute July 16, 2024 1: 06pm Obesity affecting acute July 16, 2024 1:06pm acute July 16, 2024 1:06pm Supervision of high-risk acute July 16, 2024 1: 06pm Lrhsq-Odvxrnzoq-Ojons syndrome acute July 16, 2024 1:06pm Former smoker, stopped smoki ng in distant past resolved July 16, 2024 1: 06pm Hemorrhagic cyst of ovary resolved July 16, 2024 1:06pm History of marijuana use resolved July 16, 2024 1:06pm History of nicotine vaping resolved July 16, 2024 1:06pm PCOS (polycystic ovarian syndrome) resolved July 16, 2024 1: 06pm at early stage resolved July 16, 2024 1:06pm Spotting in early resolved July 16, 2024 1:06pm Vaginal discharge resolved July 1:06pm Anxiety acute July 27, 2024 10:11am Bicornuate uterus acute July 10:11am History of recurrent miscarriages acute July 27, 2024 1 0:11am Obesity affecting acute July 27, 2024 10:11am acute July 27, 2024 10:11am Supervision of high-risk acute July 27, 2024 1 0:11am Bzatm-Bhqyjhktp-Juwra syndrome acute July 27, 2024 10:11am Former smoker, stopped smoki ng in distant past resolved July 27, 2024 1 0:11am Hemorrhagic cyst of ovary resolved July 27, 2024 10:11am History of marijuana use resolved July 27, 2024 10:11am History of nicotine vaping resolved July 27, 2024 10:11am PCOS (polycystic ovarian syndrome) resolved July 27, 2024 1 0:11am at early stage resolved July 27, 2024 10:11am Spotting in early resolved July 27, 2024 10:11am Vaginal discharge resolved July 10:11am Asymptomatic bacteriuria dur ing inactive July 27, 2024 1 0:11am Vaginal bleeding affecting early inactive July 27, 2024 1 0:11am Anxiety acute August 03, 2024 2:51pm Bicornuate uterus acute July 2:51pm History of recurrent miscarriages acute August 03, 2024 2 :51pm Obesity affecting acute August 03, 2024 2:51pm acute August 03, 2024 2:51pm Supervision of high-risk acute August 03, 2024 2 :51pm Vpkxj-Pncaatola-Zsckh syndrome acute August 03, 2024 2:51pm Former smoker, stopped smoki ng in distant past resolved August 03, 2024 2 :51pm Hemorrhagic cyst of ovary resolved August 03, 2024 2:51pm History of marijuana use resolved August 03, 2024 2:51pm History of nicotine vaping resolved August 03, 2024 2:51pm PCOS (polycystic ovarian syndrome) resolved August 03, 2024 2 :51pm at early stage resolved August 03, 2024 2:51pm Spotting in early resolved August 03, 2024 2:51pm Vaginal discharge resolved July 2:51pm Anxiety acute August 09, 2024 1:57pm Bicornuate uterus acute August 1:57pm History of recurrent miscarriages acute August 09, 2024 1 :57pm Obesity affecting acute August 09, 2024 1:57pm acute August 09, 2024 1:57pm Supervision of high-risk acute August 09, 2024 1 :57pm Kqknl-Qzvgczkll-Sjmbs syndrome acute August 09, 2024 1:57pm Former smoker, stopped smoki ng in distant past resolved August 09, 2024 1 :57pm Hemorrhagic cyst of ovary resolved August 09, 2024 1:57pm History of marijuana use resolved August 09, 2024 1:57pm History of nicotine vaping resolved August 09, 2024 1:57pm PCOS (polycystic ovarian syndrome) resolved August 09, 2024 1 :57pm at early stage resolved August 09, 2024 1:57pm Spotting in early resolved August 09, 2024 1:57pm Vaginal discharge resolved August 1:57pm Anxiety acute August 13, 2024 3:43pm Bicornuate uterus acute August 3:43pm History of recurrent miscarriages acute August 13, 2024 3 :43pm Obesity affecting acute August 13, 2024 3:43pm acute August 13, 2024 3:43pm Supervision of high-risk acute August 13, 2024 3 :43pm Vaqls-Bakdkystj-Ldawm syndrome acute August 13, 2024 3:43pm Former smoker, stopped smoki ng in distant past resolved August 13, 2024 3 :43pm Hemorrhagic cyst of ovary resolved August 13, 2024 3:43pm History of marijuana use resolved August 13, 2024 3:43pm History of nicotine vaping resolved August 13, 2024 3:43pm PCOS (polycystic ovarian syndrome) resolved August 13, 2024 3 :43pm at early stage resolved August 13, 2024 3:43pm Spotting in early resolved August 13, 2024 3:43pm Vaginal discharge resolved August 3:43pm Anxiety acute August 16, 2024 3:41pm Bicornuate uterus acute August 3:41pm History of recurrent miscarriages acute August 16, 2024 3 :41pm Obesity affecting acute August 16, 2024 3:41pm acute August 16, 2024 3:41pm Supervision of high-risk acute August 16, 2024 3 :41pm Zgnhl-Cjbqgxtim-Bglkf syndrome acute August 16, 2024 3:41pm Former smoker, stopped smoki ng in distant past resolved August 16, 2024 3 :41pm Hemorrhagic cyst of ovary resolved August 16, 2024 3:41pm History of marijuana use resolved August 16, 2024 3:41pm History of nicotine vaping resolved August 16, 2024 3:41pm PCOS (polycystic ovarian syndrome) resolved August 16, 2024 3 :41pm at early stage resolved August 16, 2024 3:41pm Spotting in early resolved August 16, 2024 3:41pm Vaginal discharge resolved August 3:41pm Anxiety acute August 27 1:59pm Bicornuate uterus acute August 272024 1:59pm History of recurrent miscarriages acute August 27, 2024 1:59pm Obesity affecting acute August 27, 2024 1:59pm acute August 27 1:59pm Supervision of high-risk acute August 27, 2024 1:59pm Wjvbm-Dzboemywc-Eensx syndrome acute August 27, 2024 1:59pm Former smoker, stopped smoki ng in distant past resolved August 27, 2024 1:59pm Hemorrhagic cyst of ovary resolved August 27, 2024 1:59pm History of marijuana use resolved August 27, 2024 1:59pm History of nicotine vaping resolved August 27, 2024 1:59pm PCOS (polycystic ovarian syndrome) resolved August 27, 2024 1:59pm at early stage resolved August 27, 2024 1:59pm Spotting in early resolved August 27, 2024 1:59pm Vaginal discharge resolved August 272024 1:59pm Anxiety acute September 01 3:40pm Bicornuate uterus acute September 012024 3:40pm History of recurrent miscarriages acute September 01, 2024 3:40pm Obesity affecting acute September 01, 2024 3:40pm acute September 01 3:40pm Supervision of high-risk acute September 01, 2024 3:40pm Bcing-Udpclelgz-Rkwbl syndrome acute September 01, 2024 3:40pm Former smoker, stopped smoki ng in distant past resolved September 01, 2024 3:40pm Hemorrhagic cyst of ovary resolved September 01, 2024 3:40pm History of marijuana use resolved September 01, 2024 3:40pm History of nicotine vaping resolved September 01, 2024 3:40pm PCOS (polycystic ovarian syndrome) resolved September 01, 2024 3:40pm at early stage resolved September 01, 2024 3:40pm Spotting in early resolved September 01, 2024 3:40pm Vaginal discharge resolved September 012024 3:40pm Anxiety acute October 01 11:29am Bicornuate uterus acute October 012024 11:29am History of recurrent miscarriages acute October 01, 2024 11:29am Migraine headache acute October 012024 11:29am Obesity affecting acute October 01, 2024 11:29am acute October 01 11:29am Supervision of high-risk acute October 01, 2024 11:29am Hqnkq-Zjibtcnfe-Rgfie syndrome acute October 01, 2024 11:29am Former smoker, stopped smoki ng in distant past resolved October 01, 2024 11:29am Hemorrhagic cyst of ovary resolved October 01, 2024 11:29am History of marijuana use resolved October 01, 2024 11:29am History of nicotine vaping resolved October 01, 2024 11:29am PCOS (polycystic ovarian syndrome) resolved October 01, 2024 11:29am at early stage resolved October 01, 2024 11:29am Spotting in early resolved October 01, 2024 11:29am Vaginal discharge resolved October 012024 11:29am [facility] Work Phone: [phone]) 814-168405-09-2025 Evaluation note* Diagnosis Onset Date Resolution Status Admit Date Anxiety acute July 16, 2024 1:06pm Bicornuate uterus acute July 1:06pm History of recurrent miscarriages acute July 16, 2024 1: 06pm Obesity affecting acute July 16, 2024 1:06pm acute July 16, 2024 1:06pm Supervision of high-risk acute July 16, 2024 1: 06pm Xfwyz-Dczbgjzbr-Hrxsz syndrome acute July 16, 2024 1:06pm Former smoker, stopped smoki ng in distant past resolved July 16, 2024 1: 06pm Hemorrhagic cyst of ovary resolved July 16, 2024 1:06pm History of marijuana use resolved July 16, 2024 1:06pm History of nicotine vaping resolved July 16, 2024 1:06pm PCOS (polycystic ovarian syndrome) resolved July 16, 2024 1: 06pm at early stage resolved July 16, 2024 1:06pm Spotting in early resolved July 16, 2024 1:06pm Vaginal discharge resolved July 1:06pm Anxiety acute July 27, 2024 10:11am Bicornuate uterus acute July 10:11am History of recurrent miscarriages acute July 27, 2024 1 0:11am Obesity affecting acute July 27, 2024 10:11am acute July 27, 2024 10:11am Supervision of high-risk acute July 27, 2024 1 0:11am Ackcc-Yxpwiswoy-Vpduv syndrome acute July 27, 2024 10:11am Former smoker, stopped smoki ng in distant past resolved July 27, 2024 1 0:11am Hemorrhagic cyst of ovary resolved July 27, 2024 10:11am History of marijuana use resolved July 27, 2024 10:11am History of nicotine vaping resolved July 27, 2024 10:11am PCOS (polycystic ovarian syndrome) resolved July 27, 2024 1 0:11am at early stage resolved July 27, 2024 10:11am Spotting in early resolved July 27, 2024 10:11am Vaginal discharge resolved July 10:11am Asymptomatic bacteriuria during inactive July 27, 2024 10:11am Vaginal bleeding affecting early inactive July 27, 2024 1 0:11am Anxiety acute August 03, 2024 2:51pm Bicornuate uterus acute July 2:51pm History of recurrent miscarriages acute August 03, 2024 2 :51pm Obesity affecting acute August 03, 2024 2:51pm acute August 03, 2024 2:51pm Supervision of high-risk acute August 03, 2024 2 :51pm Frbfl-Prvbpndnh-Ufvvw syndrome acute August 03, 2024 2:51pm Former smoker, stopped smoki ng in distant past resolved August 03, 2024 2 :51pm Hemorrhagic cyst of ovary resolved August 03, 2024 2:51pm History of marijuana use resolved August 03, 2024 2:51pm History of nicotine vaping resolved August 03, 2024 2:51pm PCOS (polycystic ovarian syndrome) resolved August 03, 2024 2 :51pm at early stage resolved August 03, 2024 2:51pm Spotting in early resolved August 03, 2024 2:51pm Vaginal discharge resolved July 2:51pm Anxiety acute August 09, 2024 1:57pm Bicornuate uterus acute August 1:57pm History of recurrent miscarriages acute August 09, 2024 1 :57pm Obesity affecting acute August 09, 2024 1:57pm acute August 09, 2024 1:57pm Supervision of high-risk acute August 09, 2024 1 :57pm Nacyx-Wlffnfwkr-Sxcem syndrome acute August 09, 2024 1:57pm Former smoker, stopped smoki ng in distant past resolved August 09, 2024 1 :57pm Hemorrhagic cyst of ovary resolved August 09, 2024 1:57pm History of marijuana use resolved August 09, 2024 1:57pm History of nicotine vaping resolved August 09, 2024 1:57pm PCOS (polycystic ovarian syndrome) resolved August 09, 2024 1 :57pm at early stage resolved August 09, 2024 1:57pm Spotting in early resolved August 09, 2024 1:57pm Vaginal discharge resolved August 1:57pm Anxiety acute August 13, 2024 3:43pm Bicornuate uterus acute August 3:43pm History of recurrent miscarriages acute August 13, 2024 3 :43pm Obesity affecting acute August 13, 2024 3:43pm acute August 13, 2024 3:43pm Supervision of high-risk acute August 13, 2024 3 :43pm Uknfv-Cdlpxcemt-Zmhmq syndrome acute August 13, 2024 3:43pm Former smoker, stopped smoki ng in distant past resolved August 13, 2024 3 :43pm Hemorrhagic cyst of ovary resolved August 13, 2024 3:43pm History of marijuana use resolved August 13, 2024 3:43pm History of nicotine vaping resolved August 13, 2024 3:43pm PCOS (polycystic ovarian syndrome) resolved August 13, 2024 3 :43pm at early stage resolved August 13, 2024 3:43pm Spotting in early resolved August 13, 2024 3:43pm Vaginal discharge resolved August 3:43pm Anxiety acute August 16, 2024 3:41pm Bicornuate uterus acute August 3:41pm History of recurrent miscarriages acute August 16, 2024 3 :41pm Obesity affecting acute August 16, 2024 3:41pm acute August 16, 2024 3:41pm Supervision of high-risk acute August 16, 2024 3 :41pm Mankw-Doawkfvaj-Pwseh syndrome acute August 16, 2024 3:41pm Former smoker, stopped smoki ng in distant past resolved August 16, 2024 3 :41pm Hemorrhagic cyst of ovary resolved August 16, 2024 3:41pm History of marijuana use resolved August 16, 2024 3:41pm History of nicotine vaping resolved August 16, 2024 3:41pm PCOS (polycystic ovarian syndrome) resolved August 16, 2024 3 :41pm at early stage resolved August 16, 2024 3:41pm Spotting in early resolved August 16, 2024 3:41pm Vaginal discharge resolved August 3:41pm Anxiety acute August 27 1:59pm Bicornuate uterus acute August 272024 1:59pm History of recurrent miscarriages acute August 27, 2024 1:59pm Obesity affecting acute August 27, 2024 1:59pm acute August 27 1:59pm Supervision of high-risk acute August 27, 2024 1:59pm Fnozg-Iehdekouf-Xmsrj syndrome acute August 27, 2024 1:59pm Former smoker, stopped smoki ng in distant past resolved August 27, 2024 1:59pm Hemorrhagic cyst of ovary resolved August 27, 2024 1:59pm History of marijuana use resolved August 27, 2024 1:59pm History of nicotine vaping resolved August 27, 2024 1:59pm PCOS (polycystic ovarian syndrome) resolved August 27, 2024 1:59pm at early stage resolved August 27, 2024 1:59pm Spotting in early resolved August 27, 2024 1:59pm Vaginal discharge resolved August 272024 1:59pm Anxiety acute September 01 3:40pm Bicornuate uterus acute September 012024 3:40pm History of recurrent miscarriages acute September 01, 2024 3:40pm Obesity affecting acute September 01, 2024 3:40pm acute September 01 3:40pm Supervision of high-risk acute September 01, 2024 3:40pm Vdfxu-Nrvoimmjb-Glhiw syndrome acute September 01, 2024 3:40pm Former smoker, stopped smoki ng in distant past resolved September 01, 2024 3:40pm Hemorrhagic cyst of ovary resolved September 01, 2024 3:40pm History of marijuana use resolved September 01, 2024 3:40pm History of nicotine vaping resolved September 01, 2024 3:40pm PCOS (polycystic ovarian syndrome) resolved September 01, 2024 3:40pm at early stage resolved September 01, 2024 3:40pm Spotting in early resolved September 01, 2024 3:40pm Vaginal discharge resolved September 012024 3:40pm Anxiety acute October 01 11:29am Bicornuate uterus acute October 012024 11:29am History of recurrent miscarriages acute October 01, 2024 11:29am Migraine headache acute October 012024 11:29am Obesity affecting acute October 01, 2024 11:29am acute October 01 11:29am Supervision of high-risk acute October 01, 2024 11:29am Cnelq-Ivulvhurt-Holmv syndrome acute October 01, 2024 11:29am Former smoker, stopped smoki ng in distant past resolved October 01, 2024 11:29am Hemorrhagic cyst of ovary resolved October 01, 2024 11:29am History of marijuana use resolved October 01, 2024 11:29am History of nicotine vaping resolved October 01, 2024 11:29am PCOS (polycystic ovarian syndrome) resolved October 01, 2024 11:29am at early stage resolved October 01, 2024 11:29am Spotting in early resolved October 01, 2024 11:29am Vaginal discharge resolved October 012024 11:29am Anxiety acute October 11 12:58pm Bicornuate uterus acute October 11, 2024 12:58pm History of recurrent miscarriages acute October 11, 2024 12:58pm Migraine headache acute October 11, 2024 12:58pm Obesity affecting acute October 11, 2024 12:58pm acute October 11 12:58pm Supervision of high-risk acute October 11, 2024 12:58pm Ryrqp-Faldzkwka-Wffts syndrome acute October 11, 2024 12:58pm Chronic hypertension affecti ng chronic October 11, 2024 12:58pm [facility] Work Phone: 1(241) 685-547805-09-2025 Evaluation note* Diagnosis Onset Date Resolution Status Admit Date Anxiety acute July 16, 2024 1:06pm Bicornuate uterus acute July 1:06pm History of recurrent miscarriages acute July 16, 2024 1: 06pm Obesity affecting acute July 16, 2024 1:06pm acute July 16, 2024 1:06pm Supervision of high-risk acute July 16, 2024 1: 06pm Njcoa-Onzkmkgyd-Jidbf syndrome acute July 16, 2024 1:06pm Former smoker, stopped smoki ng in distant past resolved July 16, 2024 1: 06pm Hemorrhagic cyst of ovary resolved July 16, 2024 1:06pm History of marijuana use resolved July 16, 2024 1:06pm History of nicotine vaping resolved July 16, 2024 1:06pm PCOS (polycystic ovarian syndrome) resolved July 16, 2024 1: 06pm at early stage resolved July 16, 2024 1:06pm Spotting in early resolved July 16, 2024 1:06pm Vaginal discharge resolved July 1:06pm Anxiety acute July 27, 2024 10:11am Bicornuate uterus acute July 10:11am History of recurrent miscarriages acute July 27, 2024 1 0:11am Obesity affecting acute July 27, 2024 10:11am acute July 27, 2024 10:11am Supervision of high-risk acute July 27, 2024 1 0:11am Wsqta-Zuqhwyhjx-Whfcu syndrome acute July 27, 2024 10:11am Former smoker, stopped smoki ng in distant past resolved July 27, 2024 1 0:11am Hemorrhagic cyst of ovary resolved July 27, 2024 10:11am History of marijuana use resolved July 27, 2024 10:11am History of nicotine vaping resolved July 27, 2024 10:11am PCOS (polycystic ovarian syndrome) resolved July 27, 2024 1 0:11am at early stage resolved July 27, 2024 10:11am Spotting in early resolved July 27, 2024 10:11am Vaginal discharge resolved July 10:11am Asymptomatic bacteriuria during inactive July 27, 2024 10:11am Vaginal bleeding affecting early inactive July 27, 2024 1 0:11am Anxiety acute August 03, 2024 2:51pm Bicornuate uterus acute July 2:51pm History of recurrent miscarriages acute August 03, 2024 2 :51pm Obesity affecting acute August 03, 2024 2:51pm acute August 03, 2024 2:51pm Supervision of high-risk acute August 03, 2024 2 :51pm Qdesr-Qsxgmoaoy-Ohyhl syndrome acute August 03, 2024 2:51pm Former smoker, stopped smoki ng in distant past resolved August 03, 2024 2 :51pm Hemorrhagic cyst of ovary resolved August 03, 2024 2:51pm History of marijuana use resolved August 03, 2024 2:51pm History of nicotine vaping resolved August 03, 2024 2:51pm PCOS (polycystic ovarian syndrome) resolved August 03, 2024 2 :51pm at early stage resolved August 03, 2024 2:51pm Spotting in early resolved August 03, 2024 2:51pm Vaginal discharge resolved July 2:51pm Anxiety acute August 09, 2024 1:57pm Bicornuate uterus acute August 1:57pm History of recurrent miscarriages acute August 09, 2024 1 :57pm Obesity affecting acute August 09, 2024 1:57pm acute August 09, 2024 1:57pm Supervision of high-risk acute August 09, 2024 1 :57pm Ggcpt-Radxnnodo-Nkghr syndrome acute August 09, 2024 1:57pm Former smoker, stopped smoki ng in distant past resolved August 09, 2024 1 :57pm Hemorrhagic cyst of ovary resolved August 09, 2024 1:57pm History of marijuana use resolved August 09, 2024 1:57pm History of nicotine vaping resolved August 09, 2024 1:57pm PCOS (polycystic ovarian syndrome) resolved August 09, 2024 1 :57pm at early stage resolved August 09, 2024 1:57pm Spotting in early resolved August 09, 2024 1:57pm Vaginal discharge resolved August 1:57pm Anxiety acute August 13, 2024 3:43pm Bicornuate uterus acute August 3:43pm History of recurrent miscarriages acute August 13, 2024 3 :43pm Obesity affecting acute August 13, 2024 3:43pm acute August 13, 2024 3:43pm Supervision of high-risk acute August 13, 2024 3 :43pm Qyyzd-Ygnndlltq-Tvtvg syndrome acute August 13, 2024 3:43pm Former smoker, stopped smoki ng in distant past resolved August 13, 2024 3 :43pm Hemorrhagic cyst of ovary resolved August 13, 2024 3:43pm History of marijuana use resolved August 13, 2024 3:43pm History of nicotine vaping resolved August 13, 2024 3:43pm PCOS (polycystic ovarian syndrome) resolved August 13, 2024 3 :43pm at early stage resolved August 13, 2024 3:43pm Spotting in early resolved August 13, 2024 3:43pm Vaginal discharge resolved August 3:43pm Anxiety acute August 16, 2024 3:41pm Bicornuate uterus acute August 3:41pm History of recurrent miscarriages acute August 16, 2024 3 :41pm Obesity affecting acute August 16, 2024 3:41pm acute August 16, 2024 3:41pm Supervision of high-risk acute August 16, 2024 3 :41pm Sovdy-Yemztplmv-Xdsxn syndrome acute August 16, 2024 3:41pm Former smoker, stopped smoki ng in distant past resolved August 16, 2024 3 :41pm Hemorrhagic cyst of ovary resolved August 16, 2024 3:41pm History of marijuana use resolved August 16, 2024 3:41pm History of nicotine vaping resolved August 16, 2024 3:41pm PCOS (polycystic ovarian syndrome) resolved August 16, 2024 3 :41pm at early stage resolved August 16, 2024 3:41pm Spotting in early resolved August 16, 2024 3:41pm Vaginal discharge resolved August 3:41pm Anxiety acute August 27 1:59pm Bicornuate uterus acute August 272024 1:59pm History of recurrent miscarriages acute August 27, 2024 1:59pm Obesity affecting acute August 27, 2024 1:59pm acute August 27 1:59pm Supervision of high-risk acute August 27, 2024 1:59pm Phqic-Nvmswqjlg-Fzidj syndrome acute August 27, 2024 1:59pm Former smoker, stopped smoki ng in distant past resolved August 27, 2024 1:59pm Hemorrhagic cyst of ovary resolved August 27, 2024 1:59pm History of marijuana use resolved August 27, 2024 1:59pm History of nicotine vaping resolved August 27, 2024 1:59pm PCOS (polycystic ovarian syndrome) resolved August 27, 2024 1:59pm at early stage resolved August 27, 2024 1:59pm Spotting in early resolved August 27, 2024 1:59pm Vaginal discharge resolved August 272024 1:59pm Anxiety acute September 01 3:40pm Bicornuate uterus acute September 012024 3:40pm History of recurrent miscarriages acute September 01, 2024 3:40pm Obesity affecting acute September 01, 2024 3:40pm acute September 01 3:40pm Supervision of high-risk acute September 01, 2024 3:40pm Ywoiq-Erwzbhdic-Kpmza syndrome acute September 01, 2024 3:40pm Former smoker, stopped smoki ng in distant past resolved September 01, 2024 3:40pm Hemorrhagic cyst of ovary resolved September 01, 2024 3:40pm History of marijuana use resolved September 01, 2024 3:40pm History of nicotine vaping resolved September 01, 2024 3:40pm PCOS (polycystic ovarian syndrome) resolved September 01, 2024 3:40pm at early stage resolved September 01, 2024 3:40pm Spotting in early resolved September 01, 2024 3:40pm Vaginal discharge resolved September 012024 3:40pm Anxiety acute October 01 11:29am Bicornuate uterus acute October 012024 11:29am History of recurrent miscarriages acute October 01, 2024 11:29am Migraine headache acute October 012024 11:29am Obesity affecting acute October 01, 2024 11:29am acute October 01 11:29am Supervision of high-risk acute October 01, 2024 11:29am Lbkim-Bawfgctxi-Ghwsw syndrome acute October 01, 2024 11:29am Former smoker, stopped smoki ng in distant past resolved October 01, 2024 11:29am Hemorrhagic cyst of ovary resolved October 01, 2024 11:29am History of marijuana use resolved October 01, 2024 11:29am History of nicotine vaping resolved October 01, 2024 11:29am PCOS (polycystic ovarian syndrome) resolved October 01, 2024 11:29am at early stage resolved October 01, 2024 11:29am Spotting in early resolved October 01, 2024 11:29am Vaginal discharge resolved October 012024 11:29am Anxiety acute October 11 12:58pm Bicornuate uterus acute October 11, 2024 12:58pm History of recurrent miscarriages acute October 11, 2024 12:58pm Migraine headache acute October 11, 2024 12:58pm Obesity affecting acute October 11, 2024 12:58pm acute October 11 12:58pm Supervision of high-risk acute October 11, 2024 12:58pm Hsujq-Rokmkpdkt-Tdtiq syndrome acute October 11, 2024 12:58pm Chronic hypertension affecti ng chronic October 11, 2024 12:58pm Concealed Lntzi-Waaybjseb-Zmyic (WPW) pattern acute October 12, 2024 1:40pm Palpitations acute October 12, 2024 1:40pm Chronic hypertension affecti ng chronic October 12, 2024 1:40pm [facility] Work Phone: 1(149) 181-682002-03-2025 History of Present illness Narrative* Domenico Long, MIRZA-BANK ADVISOR - 04/12/2024 8:20 AM ESTAssociated Order(s): Ear [...] am INDICATION: Signs/Symptoms:cough. COMPARISON: None. ACCESSION NUMBER(S): [id number] ORDERING CLINICIAN: DOMENICO LONG FINDINGS: The lungs are clear without pleural effusion. Normal heart size, mediastinum, ya, and pulmonary vasculature. No active disease in the chest identified. MACRO: None Signed by: Altaf Grullon 04/12/2024 9:10 AM Dictation workstation: [id number] Diagnostic study results (if any) were reviewed by BIPIN Estrada. Assessment/Plan Allergies, medications, history, and pertinent labs/EKGs/Imaging reviewed by Camron Long, BOILER CONTROL ROOM OPERATOR-BANK ADVISOR. Medical Decision Making CXR neg. See results. [...] Patient disposition: Home documented in this [facility] Work Phone: 1(217) 945-235712-27-2023 NoteORIGINAL PROCEDURE: Ultrasound and fluoroscopic guided percutaneous [...] 2:56:21 PM Ordering Provider: [facility] ([place]02-21-2023 Hospital Discharge instructions Patient Education 02/21/2023 13:13:02 Radiology- CT Aspiration or Drainage 06/23/2019 (CUSTOM) [facility]ATER CT Aspiration or Drainage Discharge Instructions Interventional Radiology [facility] Services [address] [place] [address] Today, you had a drainage or aspiration [...] 1 to 2 days following the procedure. Eoao-ihv-kjoyozv pain medication should be used for pain [...] hours, please follow the instruction below: call [phone] After 24 hours, contact the physician who [...] until you are awake and alert. Take nkvs-rso-lycurwp and prescription medicines only as told by [...] 12/15/2013 Document Revised: 02/06/2018 Document Reviewed: 06/15/2016 [employer] Patient Education 2020 [employer]. Follow Up Care 02/20/2023 10:47:45 With:MARCO BLOOM MD, [facility] Address: [address] [place] [address] [place] [address] [phone] When: Unknown Comments:Follow-up as needed With:MARCO MOJICA MD Address: [address] [place] [phone] When: Unknown With:Go to emergency room if symptoms worsen Address:Unknown When: Unknown [facility] 12-15-2023 Evaluation + Plan noteExtracted from: Title:IR [...] paper, which has been scanned into the [facility] PACS/RIS system. _ Future Scheduled Tests Laboratory* [facility] Send out (Blood Specimens) 02/19/23 [facility] 12-15-2023 Note* NICHELLE Dewitt: SIGN, AUTHOR, PERFORM Event Display: IR Procedure Record Authored Date: [id number] IR Procedure Record Summary Primary Physician: MARCO BLOOM MD Finalized Date/Time: 02/21/23 11:42:44 Pt. Name: JEFF RUSHING D.O.B./Sex: 1995 Female Med Rec #: [id number] Physician: Financial #: [id number] Pt. Type: O Room/Bed: / Admit/Disch: 02/21/23 [...] mL Medication OMNIPAQUE 300 50ML 10/PK Y-530 [facility] 7797-6648-11 Radiology Flouroscopy Fluoroscopy Used? Yes Fluoro Dose [...] site marked, Present for Time Out [employer] Relevant images and Kenyetta Louise, results are properly Kendy Briseno, labeled and NICHELLE Dewitt appropriately displayed, Alcohol based prep dry, Double verification of sterility indicators complete Instrument Sterility Team Members MARCO BLOOM MD, Verifying Sterility [employer] Product FinisherFinn Garcia K Procedure IR Sclerotherapy SN Last Modified By: NICHELLE Dewitt 02/21/23 11:26:52 Skin Prep- IR Entry 1 Procedure IR Sclerotherapy SN Skin Prep Prep Area Abdomen Side Left By [employer] Prep Agents Chloraprep Radha Orona Hair Removal [...] Radiology - Action Plan Outcomes Met? Yes Laser Printing Operator NICHELLE Dewitt Completing Procedure Plan Last Modified By: NICHELLE Dewitt 02/21/23 11:30:03 Case Comments <None> Finalized By: NICHELLE Dewitt Document Signatures Signed By: NICHELLE Dewitt 02/21/23 11:42 [facility] 12-15-2023 Summary of episode note Discharge Instructions Thank you for allowing [facility] to assist you with your healthcare needs. The following is importantdischarge information regarding your hospital visit. Your Care Team MARCO MOJICA MD What to do next Follow Up Appointments Follow Up with MARCO BLOOM MD, [facility] When Why: Follow-up as needed Where: [address] [place] [address] [place] [address]- [phone] Follow Up with MARCO MOJICA MD When Where: [address] [place] [address]- [phone] Follow Up with Go to emergency room [...] medication providers or retail pharmacies. Education Materials [facility] CT Aspiration or Drainage Discharge Instructions Interventional Radiology [facility] Services [address] [facility] [address] Today, you had a drainage or aspiration [...] 1 to 2 days following the procedure. Venf-hil-stnpnfu pain medication should be used for pain [...] hours, please follow the instruction below: call [phone] After 24 hours, contact the physician who [...] until you are awake and alert. Take fewv-iri-ewmwnbs and prescription medicines only as told by [...] 12/15/2013 Document Revised: 02/06/2018 Document Reviewed: 06/15/2016 [employer] Patient Education 2020 [employer] Additional Information VACCINATE! IT SAVES LIVES! Members of the community who have not yet received the COVID-19 vaccine and would like to receive it can visit one of [facility] vaccine clinics. There are many vaccine clinic locations within the [facility]. For locations and available times, please visit [email or web address] It is important to note that some COVID mobile vaccine clinics are held outdoors and may be canceled in rainy or stormy conditions. To learn more about pediatric vaccinations (ages 5-11), we invite you to visit the [employer] [facility] webpage. [email or web address]/[email or web address] [email or web address].htmlTo learn more about the COVID-19 vaccine, we invite you to visit the CDC website for a list of frequently asked questions.https://www.cdc.gov/coronavirus/2019-ncov/vaccines/faq.html [employer] Patient Portal Access Instructions: Stay connected with your healthcare team and access your personal medical information anytime with the [employer] Patient Portal. Please follow the directions below to create your [employer] account: 1.Access the email account you provided upon registration to the hospital/physician office.2.Look for an invitation email from [facility].3.Open the email and access the invitation link: AcceptInvitation to [employer].4.Fill in the required feliz to create your account. To access your account, visit [employer]. Click the blue button labeled Access Patient [...] who you will allowto register on the [employer] Patient Portal for access to your information. You can also access the [employer] Patient Portal on the [employer] sylvia. Simply click on Patient Portal and then log into your account. If you would like to receive a full copy of your medical records, please contact the [facility] Medical Records Department by calling [phone], Friday through Friday between 8 a.m. and [...] Call your local pharmacy or go to [email or web address] to find one close to you.3.Make use of household items: Use cat litter or old coffee grounds to dispose medications if other options arenot available. Mix your drugs with these household products, seal them in an airtight container andthrow it into the garbage. Call [facility]: [phone] to be sure your drugs can be [...] aware that I should contact my doctor. Patient/Shoe Stock Associate Signature: Date/Time: Relationship to Patient: Witness Name/Signature: Date/Time: [facility] [id number] Note IR Procedure Record Summary Primary Physician: MARCO BLOOM MD Finalized Date/Time: 02/21/23 11:42:44 Pt. Name: YVANJEFF HAQ /Sex: 1995 Female Med Rec #: [id number] Physician: Financial #: [id number] Pt. Type: O Room/Bed: / Admit/Disch: 02/21/23 [...] mL Medication OMNIPAQUE 300 50ML 10/PK Y-530 [facility] 3245-7710-33 Radiology Flouroscopy Fluoroscopy Used? Yes Fluoro Dose [...] - IR Entry 1 Case Information Room AH IR 18 Case Level IR Level 2 [...] Reviewed Medical Record With Last Modified By: NCIHELLE Dewitt 02/21/23 11:24:22 Radiology Protocols/Time Out- IR [...] and site marked, Present for Time Out [employer] Relevant images and Haider Louisetojanell, results are properly Kendy R Apse, labeled and NICHELLE Dewitt appropriately displayed, Alcohol based prep dry, Double verification of sterility indicators complete Instrument Sterility Team Members MARCO BLOOM MD, Verifying Sterility [employer] Radha K Procedure IR Sclerotherapy SN Last Modified By: NICHELLE Dewitt 02/21/23 11:26:52 Skin Prep- IR Entry 1 Procedure IR Sclerotherapy SN Skin Prep Prep Area Abdomen Side Left By [employer] Prep Agents Chloraprep Radha K Hair Removal [...] Radiology - Action Plan Outcomes Met? Yes Laser Printing Operator NICHELLE Dewitt Completing Procedure Plan Last Modified By: NICHELLE Dewitt 02/21/23 11:30:03 Case Comments Finalized By: NICHELLE Dewitt Document Signatures Signed By: NICHELLE Dewitt 02/21/23 11:42 [facility] HospitalAudkssuy32[facility] History and physical note IR PREPROCEDURE H&P [...] paper, which has been scanned into the [facility] PACS/RIS system. _ Digitally Signed by UMANG RICH PA-C on 02/21/2023 09:40 AM Digitally Signed by MARCO BLOOM MD on 02/21/2023 09:51 AM [facility] [id number] Hospital Discharge instructions Patient Education 02/15/2023 14:05:58 [...] or water and you are getting dehydrated 5560-9671 [employer]. [address] [place] [address], [place] [address]. All rights reserved. This information is not intended as a substitute for professional medical care. Always follow yourhealthcare professional's instructions. Follow Up Care 02/15/2023 11:50:16 With:MARU REYES MD, Surgery Address: [address] [facility] [place] [address]- [phone] When:1-2 days [facility] 12-09-2023 Note Discharge Instructions Thank you for allowing [facility] to assist you with your healthcare needs. [...] Surgery When Within 1-2 days Where: [address] [place] [address] [phone] Allergies Contrast dye Medications Please ask your primary doctor or pharmacist before taking any other medication not listed, including over the counter drugs, herbal medications, vitamins and or supplements as they may interact withyour home medications. What How Much When Why Instructions Last Dose New acetaminophen-hydrocodone ([place] 325- 5 mg oral tablet) 1 tab(s) [...] or water and you are getting dehydrated 4215-0881 [employer]. [address] [place] [address], [place] [address]. All rights reserved. This information is not intended as a substitute for professional medical care. Always follow yourhealthcare professional's instructions. Additional Information VACCINATE! IT SAVES LIVES! Members of the community who have not yet received the COVID-19 vaccine and would like to receive it can visit one of [facility] vaccine clinics. There are many vaccine clinic locations within the [facility]. For locations and available times, please visit www.[email or web address].[place].gov/. It is important to note that some COVID mobile vaccine clinics are held outdoors and may be canceled in rainy or stormy conditions. To learn more about pediatric vaccinations (ages 5-11), we invite you to visit the [facility] webpage. [email or web address]/[email or web address]-[email or web address] stions.htmlTo learn more about the COVID-19 vaccine, we invite you to visit the CDC website for a list of frequently asked questions. https://www.cdc.gov/coronavirus/2019-ncov/vaccines/faq.html [facility] Patient Portal Access Instructions: Stay connected with your healthcare team and access your personal medical information anytime with the [facility] Patient Portal. If you would like a full copy of your medical records please contact the [facility] Medical Records Department Friday through Friday between 8a.m. and 4:30p.m. Please follow the directions below to access the portal: 1.Access the email account you provided upon [facility] to the [facility].2.Look for an invitation email from [facility].3.Open the email and access the invitation link: Accept Invitation to [employer]4.Fill in the required feliz to create your account. Sign into [email or web address] with your username and password that you [...] you will allow to register on the [facility] Patient Portal for access to your information. You can also access the [facility] Patient Portal on the [employer] sylvia. Simply click on Health Records under [employer] and then click on the Darian logo. HOW TO SAFELY DISPOSE OF PRESCRIPTION [...] Call your local pharmacy or go to [email or web address] to find one close to you.3.Make use of household items: Use cat litter or old coffee grounds to dispose medications if other options arenot available. Mix your drugs with these household products, seal them in an airtight container andthrow it into the garbage. Call [facility]: [phone] to be sure your drugs can be [...] aware that I should contact my doctor. Patient/Shoe Stock Associate Signature: Date/Time: Relationship to Patient: Witness Name/Signature: Date/Time: [facility]12-09-2023 Evaluation + Plan noteExtracted from: Title:[place] [facility] Note Author:MEHRDAD LEES DO Date:02/15/23 Abdominal Pain Splenic Cyst [...] this definitively. Given a short course of Genoa for pain control over the weekend and referred to Dr. Reyes as an outpatient. [facility] 12-09-2023 Note ORIGINAL EXAMINATION: TWO [...] Sign Date: 02/15/2023 1:26:39 PM [facility]ing [facility] Note ORIGINAL EXAMINATION: CT OF THE ABDOMEN AND PELVIS WITH JIPFYAWH79/9/2023 1:[address] ABDOMEN/PELVIS WITH CONTRAST TECHNIQUE: [...] Date: 02/15/2023 1:35:36 PM Ordering Provider: [facility]12-09-2023 History and physical note Date of [...] this definitively. Given a short course of Genoa for pain control over the weekend and [...] No qualifying data available. Digitally Signed by MEHRDAD ZAMBRANO DO on 02/15/2023 02:23 PM Digitally Signed by AUGIE HANNAH MD [facility]11-30-2022 Miscellaneous Notes* Telephone Encounter - Isi Martell APRN.CNP - 02/06/2022 3:53 PM EST Negative for Chlamydia and Gonorrhea. May stop Doxycyline. Make sure to bulk picker and take Flagyl as directed. Thanks documented in this encounterProtest[facility]11-30-2022 Miscellaneous Notes* Telephone Encounter - Kendy Whitt - 02/06/2022 2:43 PM EST Relayed message to patient. She voiced understanding. Kendy Whitt * Telephone Encounter - Kendy Whitt - 02/06/2022 11:41 AM EST Left message for patient to return phone call. Kendy Whitt * Telephone Encounter - Isi Mratell APRN.CNP - 02/06/2022 11:26 AM EST Please notify patient her vaginal culture revealed Bacterial Vaginosis. Sent Flagyl to pharmacy ([facility]). Make sure you do not drink alcohol with medication. Thanks Called Xenia in the Lab and questioned where the Gonorrhea and Chlamydia results are. Stated she just got off the phone with [facility] and they believe that the sample was either over or under the allotted amount. Xenia stated she is waiting for a return call. Informed if urine is not able to be processed to add order to the vaginal swabs collected then. Xenia verbalized understanding. Isi Martell APRN. CNP documented in this encounterProtestant [facility]acon[facility]11-28-2022 Instructions* Patient Instructions* Isi Martell APRN.CNP - 2022 12:16 PM EST -Will call with STD results -Based on clinical presentation will treat for Chlamydia -Drink plenty of fluids to stay hydrated -Vaginal rest until results are received of all STD testing -Educational pamphlet regarding Chlamydia given documented in this encounterProtestant Deacon[facility] Hospital11-28-2022 History of Present illness Narrative* Isi [...] Exam Vitals reviewed. Exam conducted with a picture frame maker present. Constitutional: General: She is not in acute distress. Appearance: Normal appearance. She is not ill-appearing, toxic-appearing or diaphoretic. HENT: Head: Normocephalic and atraumatic. Genitourinary: Exam position: Lithotomy position. Vagina: Vaginal discharge present. Cervix: Discharge present. 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, X-ray master automotive glass technician, was in room during physical examination [...] DOXYCYCLINE HYCLATE 100 MG CAPSULE Isi Martell APRN.BANK ADVISOR documented in this encounterProtestant Deacon[facility]05-12-2022 History of Present illness Narrative* Khushboo Hussein RN - 07/19/2021 6:22 PM EDT Pt arrives after speaking with her SOFTWARE SALES office. She had positive test on Friday [...] due to progesterone issue. documented in this encounterEncompass Health Rehabilitation Hospital Of [id number] Evaluation + Plan note Future Scheduled Tests Radiology* CT Thorax w/o Contrast 03/15/21 [facility] [place] 01-24-2021 History of Present illness Narrative* Lencho [...] Discharged with supportive care. Lencho Solis PA-C [id number] SSI File#: [id number] END OF DOCUMENT / CHANGE LOG FOLLOWS Last Edited By Elec. Signed By Lencho SolisDYKLE Lencho Solis on 04/29/2020 10:45 ET on 04/29/2020 10:45 ET Revision Number - 2 ^^^ Verified/Reviewed by 04/29/20 1045 LESLIELINSEY BESS [facility] PATIENT NAME: JEFF PORTILLO [address] [place] MEDICAL REC #: [id number] [place] [address] TUSAADIAARAWAJanell STATCARE REPORT STATCARE PHYSICIAN documented in this encounterProtestant Deaconess HospitalDisgood samaritan hospitalr summary Author Margarito Huston [facility] Note Date/Time July 25, 2024 1:21p [facility] Medical Records Department [address] [place] [address] Emergency Department Summary 07/25/24 MR#: [id number] Acct: [id number] Name: JEFF RUSHING Rep #:[id number] : 1995 29 From: Margarito Huston DO [...] some heavier bleeding therefore she called her SOFTWARE SALES and they advised her to come here for further evaluation management. Patient states that she is not have any pain right now. [facility] Medical History Recurrent loss Trichomonal [...] mg-folate no.1 1 mg-dha 300 mg capsule (PNV-Easton) cephalexin 500 mg capsule 500 mg PO Q12H 5 days #10 ca ps 07/25/24 Unknown Rx Allergy/AdvReac Type Severity Reaction Status Date / Time Iodinated Contrast Media Allergy Mild Hives Verified 07/25/24 11:13 Family History Grandmother Throat cancer, Onset Age: 68 Maternal Grandfather Lung cancer Maternal, smoker-onset age unknown Father Diabetes Hypertension Myocardial infarction Surgical History [place] teeth removed Social History adopted: No [...] physical activity do you participate in: none whitney/congregational: Jehovah'S Witness seatbelt use: always do you feel safe [...] follow commands knew that she was at [facility] 2024 Skin: Warm, dry, intact no rashes [...] called and discussed the case with on-call SOFTWARE SALES Dr. Vu who states the patient to [...] % (Auto) 58.7 Lymph % (Auto) 35.0 Loup % (Auto) 5.1 Eos % (Auto) 0.6 [...] Albumin/Globulin Ratio 1.5 Lipase 17 HCG, Quant 16552 H Serum , Qual POSITIVE Urine Color Yellow Urine Clarity Sl. Cloudy Urine pH 6.5 Ur Specific Peggs 1.015 Urine Protein 30 H Urine Glucose [...] Reading Location: [facility] Discharge Plan Triage Chief Complaint: Vag Bld, Preg ED Provider: Margarito Huston Dx/Rx/DC Orders Clinical Impression: Vaginal bleeding affecting early , Asymptomatic bacteriuria during Prescriptions: New cephalexin 500 mg capsule 500 mg PO Q12H 5 Days Qty: 10 0RF No Action PNV-Easton 28-1-300 mg capsule PO aspirin [Adult Low Dose Aspirin] 81 mg tablet,delayed release (DR/EC) 81 mg PO QDAY progesterone micronized [Prometrium] 200 mg capsule 400 mg vaginal ONCE Qty: 60 4RF Rx Instructions: Vaginal nightly until 16 weeks Primary Care Provider: Care Physician,No Primary Referrals: Care Physician,No Primary [Primary Care Provider] - Activity Restrictions/Additional Instructions: Follow-up with your SOFTWARE SALES in the outpatient setting call them on Friday for a follow-up appointment and see if they want you to be seen tomorrow versus at your scheduled appointment on Friday. You are placed on pelvic rest no sex anddo not insert anything in your vagina. Follow-up on urine culture with your SOFTWARE SALES and take antibiotics as prescribed. Return with any other concerns Print Language: Guyanese Disposition Disposition: Home, Self Care What to do if you have Problems For any increased pain, shortness of breath, bleeding, nausea or vomiting, chestpain, or any unexpected problems, contact your Primary Care Provider. Call [facility] ([phone]) or report to the closest Emergency Room. Call 911 if necessary. 07/25/24 1321 <Electronically signed by Margarito Huston DO> Cosigner Signature (if applicable): CC: No Primary Care Physician ~ Signed [facility] Work Phone: Evaluation + Plan note No data available for this section [facility] Evaluation + Plan note Future Appointments Appointment Date:02/20/2023 02:30:00 PM Scheduled Provider:MARU REYES MD Location:[facility] S[facility] Appointment Type:GS OV Pre Op Appointment Date:02/21/2023 10:00:00 AM Scheduled Provider: Location:IR Appointment Type:IR Sclerotherapy Diagnostic Tests Pending * Miscellaneous LC Test 02/19/23 Future Scheduled Tests Laboratory* [facility] Send out (Blood Specimens) 02/19/23 Radiology* IR Sclerotherapy 02/21/23 [facility] Evaluation note* Diagnosis Miscarriage- Primary Unspecified spontaneous without mention of complication documented in this encounter [facility]villeEvaluchristianacare note* Diagnosis Dysuria- Primary Vaginal discharge Leukorrhea, not specified as infective documented in this encounter [facility]* Diagnosis Bacterial vaginosis- Primary Vaginitis and vulvovaginitis, unspecified documented in this encounter [facility] note* Diagnosis Onset Date Resolution Status PCOS (polycystic ovarian syndrome) acute Vaginal discharge acute Encounter for annual routine gynecological examination noneactive [facility] Work Phone: Evaluation note* Diagnosis COVID-19- Primary Acute cough SOB (shortness of breath) Shortness of breath Fatigue, unspecified type Bilateral impacted cerumen Impacted cerumen At increased risk of exposure to COVID-19 virus Possible PND (post-nasal drip) Postnasal drip Non-recurrent acute suppurative otitis media of both ears without spontaneous rupture of tympanic membranes Acute cough documented in this encounter [facility] Work Phone: Evaluation noteNo assessment information available [facility] Work Phone: Evaluation note* Diagnosis Onset Date [...] 2024 10:11am History of recurrent miscarriages ac solomon July 27, 2024 10:11am Obesity affecting acute [...] 1 0:11am Vaginal discharge acute July 10:11am Jtzrh-Gmysezkgw-Drrry syndrome acute July 27, 2024 10:11am [facility] Work Phone: Hospital Discharge instructions No data available for this section [facility] Hospital Discharge instructions* Attachments The following attachments cannot be sent through Care Everywhere. * Miscarriage (Guyanese) documented in this encounterEncompass Health Rehabilitation Hospital [facility] HarmarvilleHospital Discharge instructions Additional Instructions Follow-up with your SOFTWARE SALES in the outpatient setting call them on Friday for a follow-up appointment and see if they want you to be seen tomorrow versus at your scheduled appointment on Friday. You are placed on pelvic rest no sex and do not insert anything in your vagina. Follow-up on urine culture with your SOFTWARE SALES and take antibiotics as prescribed. Return with any other concernsWSt. Mary's [facility] Work Phone: Hospital Discharge instructionsAdditional Instructions Thank you for trusting us with your care today! Your history and physical exam are reassuring. You are likely suffering from migraine/ocular migraine. Your exam was not consistent with any life-threatening headache condition. Please take Tylenol (2 pills, 650 mg), every 6 hours as needed for pain and fever control. Please take Reglan as needed for headache and nausea control. Please return to the emergency department if your symptoms change or worsen. Specifically develop loss of vision, slurred speech, facial drooping, loss of movement or sensation in your extremities. Please follow with your SOFTWARE SALES for further outpatient evaluation and management. I have also given you information regarding local neurologist to her headache experts. Please follow with the neurologist if your headaches continue to increase in severity/duration or if you would like additional treatment options in addition to prescribed Reglan.[facility] Work Phone: Hospital Discharge instructionsAmbulatory Orders* Cardiology Location: None Selected [facility] Work Phone: Progress note No data available for this section [facility] Progress note Author Diana Soliman [facility] Note Date/Time July 27, 2024 11:00 am [facility] [address] [place] [address], [address] [place] [address] OFFICE VISIT Date of Service: 07/27/24 MR#: [id number] Acct: [id number] Name: JEFF RUSHING Rep #: [id number] : 1995 Provider: Dr. Caitlin Leigh DO Age/Sex: 29/F Location: [facility] Status: Signed Intake Vital Signs 10/17/23 10:44 07/16/24 14:24 07/25/24 11:13 07/27/24 10:15 07/27/24 10:15 Height 5 ft 8 in 5 ft 8 in 5 ft 8 in 5 ft 8 in 5 ft 8 in Weight: 234 lb 2 oz BMI 35.6 BP 138/88 H Intake Visit Reasons: NOB: LMP 05/29/24, JYOTHI 03/05/25 Special Inspector Required: No Is patient in pain?: No [...] mg-folate no.1 1 mg-dha 300 mg capsule (PNV-Easton) cephalexin 500 mg capsule 500 mg PO Q12H 5 days #10 ca ps 07/25/24 07/27/24 Rx ondansetron 4 mg disintegrating 4 mg PO Q6H PRN nausea and 07/27/24 07/27/24 Rx tablet vomiting #30 tabs Last Menstrual Period: 05/29/24 Zika: Zika virus screening: Negative : No PFSH PFSH Medical History Recurrent loss Trichomonal vaginitis Seasonal allergies Shingles Cyst of spleen Surgical History [place] teeth removed Family History Grandmother Throat [...] physical activity do you participate in: none whitney/congregational: Jehovah'S Witness seatbelt use: always do you feel safe [...] (Rh) Sensitized, Pulmonary (e.g.,TB,Asthma), Drug/latex allergies/reactions, Breast, Certified Industrial Hygienist surgery, Anesthetic complications, History of abnormal pap, [...] comfortable and no acute distress Orientation: alert [facility] Head: normal to inspection, normocephalic and [...] smoking in distant past Z87.891 Anxiety F41.9 Swgmf-Vndvtsnxr-Pmwqa syndrome I45.6 at early stage Z34.90 Bicornuate [...] Quit 2021 (11) Anxiety: Status: Acute (12) Vrrcj-Lhkpzgeql-Gflqv syndrome: Status: Acute (13) at early stage: [...] Cosigner Signature: Date (if applicable) CC: ~ [facility] Work Phone: Progress note Author Diana Soliman [facility] Note Date/Time October 11, 2024 1:3 7pm [facility] [address] [place] [address], [address] [place] [address] OFFICE VISIT Date of Service: 10/11/24 MR#: [id number] Acct: [id number] Name: JEFF RUSHING Rep #: [id number] : 1995 Provider: Dr. Caitlin Leigh DO Age/Sex: 29/F Location: [facility] Status: Signed Intake Vital Signs 10/01/24 11:43 10/11/24 09:13 10/11/24 13:05 Height 5 ft 8 in 5 ft 8 in 5 ft 8 in Weight: 242 lb 2 oz BMI 36.8 BP 132/86 H Intake Visit Reasons: OB high BP - see note Special Inspector Required: No Is patient in pain?: No Allergies Iodinated Contrast Media Allergy (Mild, Verified 10/11/24 13:04) Hives Medications ?Medication ?Instructions ?Recorded ?Confirmed ?Type multivit-min no.71-iron fum 28 cap PO 07/16/24 5 History mg-folate no.1 1 mg-dha 300 mg capsule (PNV-Easton) metoclopramide HCl 5 mg tablet 5 mg PO Q8H PRN nausea and 09/29/24 10/11/24 Rx (Reglan) vomiting #21 tabs promethazine 12.5 mg tablet 12.5 mg PO Q6H PRN nausea and 10/01/24 10/11/24 Rx vomiting #90 tabs Last Menstrual Period: 05/29/24 Zika: Zika virus screening: Negative : No PFSH PFSH Medical History Recurrent loss Trichomonal vaginitis Seasonal allergies Shingles Cyst of spleen Surgical History [place] teeth removed Family History Grandmother Throat [...] physical activity do you participate in: none whitney/congregational: Jehovah'S Witness seatbelt use: always do you feel safe [...] chemical 4 spontaneous 07/16/212021 5 spontaneous HPI OB high BP - see note Details: JEFF RUSHING is a 29 year old who presents for routine OB visit. OB Visit JYOTHI Calculator Estimated Delivery Date Method Current WG Current Estimate 03/13/25 Ultrasound #1 18w 1d Other Estimates 03/05/25 LMP (Certain) 19w 2d 03/17/25 Ultrasound #2 17w 4d Expected Delivery Route/Plan Labor Preferences- CB/BF [...] next week for heart beat check. 09/01/24 -?-?-?--?-?-?-?-?-?-?-?-?- 12w 3d 239 lb 2 oz 131/86 Nega tive -?-?-?-?-?-?-?-?-?-?-?-?- Negative 172 -?-?-?-?-?-?-?-?-?-?-?-?- JV_ no complaint s other than some nausea and urinary frequency. no signs of UTI. pt reassured by scan today. NIPT low risk. She will do a gender reveal tonight. 10/01/24 -?-?-?-?-?-?-?-?-?-?-?-?- 16w 5d 238 lb 6 oz 138/91 124/87 1+ -?-?-?-?-?-?-?-?-?-?-?-?- 500 g/dL 150 -?-?-?-?-?-?-?-?-?-?-?-?- SM_ having heada ches reviewd supportive care prescribed phenergan. no vb crmaping 10/11/24 -?-?-?-?-?-?-?-?-?-?-?-?- 18w 1d 242 lb 2 oz 132/86 Nega tive -?-?-?-?-?-?-?-?-?-?-?-?- Negative 152 -?-?-?-?-?-?-?-?-?-?-?-?- JV- pt is seen u rgently today for flashing of light and high blood pressures at home. 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 will consult cardiology jean-claude and mfm. Labs repeated today. consulting mFM also. off work in meantime. ACOG First Trimester First Trimester: Desire for , Alcohol, Tobacco Cessation, Illicit/Recreational Drug/Substance Use, Intimate Partner Violence, Barriers to care, Unstable Housing, Communication Barriers, Environmental/Work Hazards, Anticipated Course of Care, Toxoplasmosis Precations, Use of Any medications, Sexual activity, Exercise, Dental Care, Sauna/Hot tub use, Seat Belt use, Childbirth classes/Hospital facilities, Travel, Indications for Ultrasound and Screening for Aneuploidy; Discussed Results POC Urinalysis 2 Dip (Clinic) Office Urine Glucose Negative Last Edit by Aubree Carson on 10/11/24 13: 21 Office Urine Protein Negative Last Edit by Aubree Carson on 10/11/24 13: 21 Coding Level of Care Code OB Routine Diagnoses Migraine headache G43.909 Obesity affecting O99.210 History of recurrent miscarriages N96 Supervision of high-risk O09.90 18 weeks gestation of Z3A.18 Weeks of gestation: 18 weeks Anxiety F41.9 Cfpee-Ispvmayhg-Hhuhi syndrome I45.6 Bicornuate uterus Q51.3 Chronic hypertension affecting O10.919 Assessment and Plan Assessment and Plan (1) Migraine headache: Status: Acute (2) Obesity affecting : Status: Acute Comment: HGBA1c (3) History of recurrent miscarriages: Status: Acute Comment: 2020 chemical, week miscarriage, APL neg in 2023 (4) Supervision of high-risk : Status: Acute Comment: PRR , JYOTHI 03/05/25, LOIS Juárez (5) : Status: Acute Qualifiers: Weeks of gestation: 18 weeks Qualified Code(s): Z3A.18 - 18 weeks gestation of Comment: NIPT low risk, gender -Pt does NOT want to know at this time Carrier neg. (6) Anxiety: Status: Acute (7) Rubjt-Skasqyofc-Imrkm syndrome: Status: Acute (8) Bicornuate uterus: Status: Acute (9) Chronic hypertension affecting : Status: Chronic Orders: Orders CBC-Complete Blood Cnt No Diff Today G43.909 - Migraine, unspecified, not intractable, without status migrainosus, O99.210 - Obesity complicating , unspecified trimester LDH Today G43.909 - Migraine, unspecified, not intractable, without status migrainosus, O99.210 - Obesity complicating , unspecified trimester POC Urinalysis 2 Dip (Clinic) Today Referrals Cardiology I45.6 - Pre-excitation syndrome, O10.919 - Unspecified pre-existing hypertension complicating , unspecified trimester Cardiology I45.6 - Pre-excitation syndrome, O10.919 - Unspecified pre-existing hypertension complicating , unspecified trimester 10/11/24 1337 <Electronically signed by Diana Londono DO> Date _ Diana Leigh DO Cosigner Signature: Date (if applicable) CC: ~ [facility] Work Phone: Reason for referral (narrative)No reason for referral information availableWSt. Mary's [facility] Work Phone: Summary Purpose Family History No [...] FoundDocuments on File Type Date Recorded Patient Shoe Stock Associate Expl anation Power of Shovel Logger Advance Directive Response Recorded Date/ Time Do you have a Healthcare Power of Shovel Logger? No July 25, 2024 11:54am Advance Directive Response Recorded Date/ Time Do you have a Healthcare Power of Shovel Logger? No July 25, 2024 11:54am Do you have a Healthcare Power of Shovel Logger? No September 29, 2024 10:01pm Advance Directive Response Recorded Date/ Time Do you have a Healthcare Power of Shovel Logger? 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) Reason for Visit PCOS (polycystic ova chris [...] 2024 11:12 am Chief Complaint Admit Date EORDER July 08, [...] 10:11 am Former smoker, stopped smoking in [place] past July 27, 2024 10:11am Hemorrhagic cyst [...] Vaginal discharge July 27, 2024 10:11 am Jfvsw-Mjqkmwgsh-Upgpg syndrome July 27, 2024 10:11am Reason for Visit Admit Date Anxiety July 27, 2024 10:11 am 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 27, 2024 10:11 am Former smoker, stopped smoking in [place] past July 27, 2024 10:11am Hemorrhagic cyst [...] Vaginal discharge July 27, 2024 10:11 am Qkxpv-Etarveswn-Xnill syndrome July 27, 2024 10:11am Asymptomatic bacteriuria [...] 1:06pm Vaginal discharge July 16, 2024 1:06pm Umfpb-Gdbyununi-Xmhkc syndrome July 16, 2024 1:06pm Anxiety July 27, 2024 10:11 am 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 27, 2024 10:11 am Former smoker, stopped smoking in jose daniel past July 27, 2024 10:11am Hemorrhagic cyst [...] Vaginal discharge July 27, 2024 10:11 am Qaedh-Azhbrkjdz-Vabqn syndrome July 27, 2024 10:11am Asymptomatic bacteriuria during pregnanc y July 27, 2024 10:11am Vaginal bleeding affecting early pregnan cy July 27, 2024 10:11am Anxiety August 03, 2024 2:51p m Bicornuate uterus August 03, 2024 2:51p m Former smoker, stopped smoking in [place] past August 03, 2024 2:51pm Hemorrhagic cyst [...] Vaginal discharge August 03, 2024 2:51p m Mplti-Xtszhdsqa-Zjzwu syndrome August 03, 2024 2:51pm Chief Complaint [...] 1:06pm Vaginal discharge July 16, 2024 1:06pm Gvmot-Herxawpza-Fsbid syndrome July 16, 2024 1:06pm Anxiety July [...] Vaginal discharge July 27, 2024 10:11 am Ybqms-Adjtatbhw-Iocbv syndrome July 27, 2024 10:11am Asymptomatic bacteriuria during pregnanc y July 27, 2024 10:11am Vaginal bleeding affecting early pregnan cy July 27, 2024 10:11am Anxiety August 03, 2024 2:51p m Bicornuate uterus August 03, 2024 2:51p m Former smoker, stopped smoking in an t past August 03, 2024 2:51pm Hemorrhagic [...] Vaginal discharge August 03, 2024 2:51p m Nirng-Ypnnolzpc-Bekpy syndrome August 03, 2024 2:51pm Anxiety August 09, 2024 1:57p m Bicornuate uterus August 09, 2024 1:57p m Former smoker, stopped smoking in past August 09, 2024 1:57pm Hemorrhagic cyst [...] Vaginal discharge August 09, 2024 1:57p m Zbwif-Yvehhhdah-Mcxbo syndrome August 09, 2024 1:57pm Chief Complaint [...] 1:06pm Vaginal discharge July 16, 2024 1:06pm Hjeaa-Knodscfmg-Lvlxk syndrome July 16, 2024 1:06pm Anxiety July 27, 2024 10:11 am 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 27, 2024 10:11 am Former smoker, stopped smoking in [place] past July 27, 2024 10:11am Hemorrhagic cyst of ovary July 27, 2024 10:11am History of marijuana use July 27, 2024 10:11am History of nicotine vaping July 27 10:11am History of recurrent miscarriages July 272024 10:11am Obesity affecting July 27 10:11am PCOS (polycystic ovarian syndrome) July 092024 10:11am May 20th, 2025 10:11 am at early stage July 27, 2024 10:11am Spotting in early July 27 10:11am Supervision of high-risk July 092024 10:11am Vaginal discharge July 27, 2024 10:11 am Qdsxv-Kricgttgi-Jzgjj syndrome July 27, 2024 10:11am Asymptomatic bacteriuria [...] Vaginal discharge August 03, 2024 2:51p m Meobt-Rhlrhjzhx-Qukjh syndrome August 03, 2024 2:51pm Anxiety August 09, 2024 1:57p m Bicornuate uterus August 09, 2024 1:57p m Former smoker, stopped smoking in an past August 09, 2024 1:57pm Hemorrhagic cyst [...] Vaginal discharge August 09, 2024 1:57p m Ynkut-Xruoxqrah-Xofeu syndrome August 09, 2024 1:57pm Anxiety August 13, 2024 3:43p m Bicornuate uterus August 13, 2024 3:43p m Former smoker, stopped smoking in [place] past August 13, 2024 3:43pm Hemorrhagic [...] Vaginal discharge August 13, 2024 3:43p m Mosxn-Eznptwtir-Bdpjb syndrome August 13, 2024 3:43pm Chief Complaint [...] 1:06pm Vaginal discharge July 16, 2024 1:06pm Dpqiw-Kxdjqxcgo-Sblbo syndrome July 16, 2024 1:06pm Anxiety July [...] Vaginal discharge July 27, 2024 10:11 am Umnwm-Xhckxluwa-Aehwk syndrome July 27, 2024 10:11am Asymptomatic bacteriuria [...] Vaginal discharge August 03, 2024 2:51p m Evnqp-Ueudzteqp-Onbri syndrome August 03, 2024 2:51pm Anxiety August [...] Vaginal discharge August 09, 2024 1:57p m Zdjdg-Ddyshjouv-Fnurv syndrome August 09, 2024 1:57pm Anxiety August 13, 2024 3:43p m Bicornuate uterus August 13, 2024 3:43p m Former smoker, stopped smoking in [place] [email or web address] past August 13, 2024 3:43pm Hemorrhagic cyst [...] Vaginal discharge August 13, 2024 3:43p m Nsrem-Qsymxizha-Hudgp syndrome August 13, 2024 3:43pm Anxiety August 16, 2024 3:41p m Bicornuate uterus August 16, 2024 3:41p m Former smoker, stopped smoking in [place] t past August 16, 2024 3:41pm Hemorrhagic [...] Vaginal discharge August 16, 2024 3:41p m Qtboj-Swsojtyyv-Bskkw syndrome August 16, 2024 3:41pm Chief Complaint [...] 2024 1:06pm Former smoker, stopped smoking in [place] past July 16, 2024 1:06pm Hemorrhagic [...] 1:06pm Vaginal discharge July 16, 2024 1:06pm Gfpcb-Fpewuggay-Mdgjr syndrome July 16, 2024 1:06pm Anxiety July [...] Vaginal discharge July 27, 2024 10:11 am Inumk-Uwtnonern-Wqafo syndrome July 27, 2024 10:11am Asymptomatic bacteriuria [...] Vaginal discharge August 03, 2024 2:51p m Alzgw-Ovuemxumv-Ziloz syndrome August 03, 2024 2:51pm Anxiety August 09, 2024 1:57p m Bicornuate uterus August 09, 2024 1:57p m Former smoker, stopped smoking in [place] past August 09, 2024 1:57pm Hemorrhagic [...] Vaginal discharge August 09, 2024 1:57p m Rlszr-Grrbtnksu-Rueor syndrome August 09, 2024 1:57pm Anxiety August 13, 2024 3:43p m Bicornuate uterus August 13, 2024 3:43p m Former smoker, stopped smoking in [place] t past August 13, 2024 3:43pm Hemorrhagic [...] Vaginal discharge August 13, 2024 3:43p m Qhcmm-Cktbwcbbm-Gftkn syndrome August 13, 2024 3:43pm Anxiety August 16, 2024 3:41p m Bicornuate uterus August 16, 2024 3:41p m Former smoker, stopped smoking in [place] past August 16, 2024 3:41pm Hemorrhagic [...] Vaginal discharge August 16, 2024 3:41p m Pbsuu-Ltozobbsi-Jloyp syndrome August 16, 2024 3:41pm Anxiety August 27, 2024 1:59 pm Bicornuate uterus August 27, 2024 1:59 pm Former smoker, stopped smoking in [place] past August 27, 2024 1:59pm Hemorrhagic cyst [...] Vaginal discharge August 27, 2024 1:59 pm Ohgaa-Immjrrpah-Nagfb syndrome August 1:59pm Chief Complaint Admit Date [...] 2024 1:06pm Former smoker, stopped smoking in [place] past July 16, 2024 1:06pm Hemorrhagic cyst [...] 1:06pm Vaginal discharge July 16, 2024 1:06pm Xcufa-Lsskdgene-Tsrqd syndrome July 16, 2024 1:06pm Anxiety July 27, 2024 10:11 am 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 27, 2024 10:11 am Former smoker, stopped smoking in [place] past July 27, 2024 10:11am Hemorrhagic [...] Vaginal discharge July 27, 2024 10:11 am Nkvot-Smoflbugo-Cjdia syndrome July 27, 2024 10:11am Asymptomatic bacteriuria during pregnanc y July 27, 2024 10:11am Vaginal bleeding affecting early pregnan cy July 27, 2024 10:11am Anxiety August 03, 2024 2:51p m Bicornuate uterus August 03, 2024 2:51p m Former smoker, stopped smoking in an t past August 03, 2024 2:51pm Hemorrhagic [...] Vaginal discharge August 03, 2024 2:51p m Rwscx-Iihxhxach-Jpngx syndrome August 03, 2024 2:51pm Anxiety August 09, 2024 1:57p m Bicornuate uterus August 09, 2024 1:57p m Former smoker, stopped smoking in [place] t past August 09, 2024 1:57pm Hemorrhagic [...] Vaginal discharge August 09, 2024 1:57p m Knbqw-Nhphnxeuf-Xhwvb syndrome August 09, 2024 1:57pm Anxiety August 13, 2024 3:43p m Bicornuate uterus August 13, 2024 3:43p m Former smoker, stopped smoking in [place] past August 13, 2024 3:43pm Hemorrhagic [...] Vaginal discharge August 13, 2024 3:43p m Fqurt-Fvhiddwlm-Hcvco syndrome August 13, 2024 3:43pm Anxiety August 16, 2024 3:41p m Bicornuate uterus August 16, 2024 3:41p m Former smoker, stopped smoking in [place] past August 16, 2024 3:41pm Hemorrhagic [...] Vaginal discharge August 16, 2024 3:41p m Jmqrw-Vjewglcew-Tgtru syndrome August 16, 2024 3:41pm Anxiety August 27, 2024 1:59 pm Bicornuate uterus August 27, 2024 1:59 pm Former smoker, stopped smoking in [place] past August 27, 2024 1:59pm Hemorrhagic cyst of ovary August 27 1:59pm History of marijuana use August 27, 2024 1:59pm History of nicotine vaping August 27 1:59pm 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 1:59pm Obesity affecting August 27, 2 025 1:59pm PCOS (polycystic ovarian syndrome) August 27, 2024 1:59pm August 27, 2024 1:59 pm at early stage August 27, 2024 1:59pm Spotting in early August 27 025 1:59pm Supervision of high-risk August 27, 2024 1:59pm Vaginal discharge August 27, 2024 1:59 pm Rqllm-Rqfqwquox-Yoqnx syndrome August 1:59pm Anxiety September 01, 2024 3:40 pm Bicornuate uterus September 01, 2024 3:40 pm Former smoker, stopped smoking in [place] past September 01, 2024 3:40pm Hemorrhagic cyst of ovary September 01 3:40pm History of marijuana use September 01, 2024 3:40pm History of nicotine vaping September 01 3:40pm 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 3:40pm Obesity affecting September 01, 2 025 3:40pm PCOS (polycystic ovarian syndrome) September 01, 2024 3:40pm September 01, 2024 3:40 pm at early stage September 01, 2024 3:40pm Spotting in early September 01, 025 3:40pm Supervision of high-risk September 01, 2024 3:40pm Vaginal discharge September 01, 2024 3:40 pm Xrolb-Tkupxwccm-Ezkog syndrome August 3:40pm Chief Complaint Admit Date EORDER July 08, [...] per JV September 01, 2024 3:40 pm migraine September 29, 2024 9:44 pm Chief Complaint Admit Date EOER July 08, [...] per JV September 01, 2024 3:40 pm migraine September 29, 2024 9:44 pm 16wk ob October 01, 2024 11:2 9am Reason for Visit Admit Date Anxiety July 16, 2024 1:06pm 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 16, 2024 1:06pm History of recurrent miscarriages July 1:06pm Obesity affecting July 16 1:06pm July 16, 2024 1:06pm Supervision of high-risk July 162024 1:06pm Kkagz-Uqnmrwgru-Qfenw syndrome July 16, 2024 1:06pm Former smoker, stopped smoking in [place] past July 16, 2024 1:06pm Hemorrhagic cyst of ovary July 16, 2024 1:06pm History of marijuana use July 16, 2024 1 :06pm History of nicotine vaping July 16, 2024 1:06pm PCOS (polycystic ovarian syndrome) July 162024 1:06pm at early stage July 16, 2024 1 :06pm Spotting in early July 16 1:06pm Vaginal discharge July 16, 2024 1:06pm Anxiety July 27, 2024 10:11 am 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 27, 2024 10:11 am History of recurrent miscarriages July 272024 10:11am Obesity affecting July 27 10:11am July 27, 2024 10:11 am Supervision of high-risk July 092024 10:11am Hxumb-Yhgsbipdp-Mkxnm syndrome July 27, 2024 10:11am Former smoker, stopped smoking in past July 27, 2024 10:11am Hemorrhagic cyst of ovary July 27, 2024 10:11am History of marijuana use July 27, 2024 10:11am History of nicotine vaping July 27 10:11am PCOS (polycystic ovarian syndrome) July 092024 10:11am at early stage July 27, 2024 10:11am Spotting in early July 27 10:11am Vaginal discharge July 27, 2024 10:11 am Asymptomatic bacteriuria during pregnanc y July 27, 2024 10:11am Vaginal bleeding affecting early pregnan cy July 27, 2024 10:11am Anxiety August 03, 2024 2:51p m Bicornuate uterus August 03, 2024 2:51p m History of recurrent miscarriages August 032024 2:51pm Obesity affecting August 03 2:51pm August 03, 2024 2:51p m Supervision of high-risk July 092024 2:51pm Jeiwe-Ibakoemaa-Fdogd syndrome August 03, 2024 2:51pm Former smoker, stopped smoking in past August 03, 2024 2:51pm Hemorrhagic cyst of ovary August 03, 2024 2:51pm History of marijuana use August 03, 2024 2:51pm History of nicotine vaping August 03 2:51pm PCOS (polycystic ovarian syndrome) July 092024 2:51pm at early stage August 03, 2024 2:51pm Spotting in early August 03 2:51pm Vaginal discharge August 03, 2024 2:51p m Anxiety August 09, 2024 1:57p m Bicornuate uterus August 09, 2024 1:57p m 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 1:57pm Obesity affecting August 09 1:57pm August 09, 2024 1:57p m Supervision of high-risk August 09, 2024 1:57pm Bdufq-Iueicjvfa-Mmpez syndrome August 09, 2024 1:57pm Former smoker, stopped smoking in [place] [email or web address] past August 09, 2024 1:57pm Hemorrhagic cyst of ovary August 09, 2024 1:57pm History of marijuana use August 09, 2024 1:57pm History of nicotine vaping August 09 1:57pm PCOS (polycystic ovarian syndrome) August 09, 2024 1:57pm at early stage August 09, 2024 1:57pm Spotting in early August 09 1:57pm Vaginal discharge August 09, 2024 1:57p m Anxiety August 13, 2024 3:43p m Bicornuate uterus August 13, 2024 3:43p m History of recurrent miscarriages August 132024 3:43pm Obesity affecting August 13 3:43pm August 13, 2024 3:43p m Supervision of high-risk August 13, 2024 3:43pm Yhlbo-Pkrgrpggh-Wsszw syndrome August 13, 2024 3:43pm Former smoker, stopped smoking in [place] [email or web address] past August 13, 2024 3:43pm Hemorrhagic cyst of ovary August 13, 2024 3:43pm History of marijuana use August 13, 2024 3:43pm History of nicotine vaping August 13 3:43pm PCOS (polycystic ovarian syndrome) August 13, 2024 3:43pm at early stage August 13, 2024 3:43pm Spotting in early August 13 3:43pm Vaginal discharge August 13, 2024 3:43p m Anxiety August 16, 2024 3:41p m Bicornuate uterus August 16, 2024 3:41p m History of recurrent miscarriages August 162024 3:41pm Obesity affecting August 16 3:41pm August 16, 2024 3:41p m Supervision of high-risk August 16, 2024 3:41pm Kxzcw-Rgytbspmp-Bqxlw syndrome August 16, 2024 3:41pm Former smoker, stopped smoking in [place] t past August 16, 2024 3:41pm Hemorrhagic cyst of ovary August 16, 2024 3:41pm History of marijuana use August 16, 2024 3:41pm History of nicotine vaping August 16 3:41pm PCOS (polycystic ovarian syndrome) August 16, 2024 3:41pm at early stage August 16, 2024 3:41pm Spotting in early August 16 3:41pm Vaginal discharge August 16, 2024 3:41p m Anxiety August 27, 2024 1:59 pm Bicornuate uterus August 27, 2024 1:59 pm 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 1:59pm Obesity affecting August 27 2 025 1:59pm August 27, 2024 1:59 pm Supervision of high-risk August 27, 2024 1:59pm Wkofd-Rswyerpyk-Zokrv syndrome August 1:59pm Former smoker, stopped smoking in [place] past August 27, 2024 1:59pm Hemorrhagic cyst of ovary August 27 1:59pm History of marijuana use August 27, 2024 1:59pm History of nicotine vaping August 27 1:59pm PCOS (polycystic ovarian syndrome) August 27, 2024 1:59pm at early stage August 27, 2024 1:59pm Spotting in early August 27 025 1:59pm Vaginal discharge August 27, 2024 1:59 pm Anxiety September 01, 2024 3:40 pm Bicornuate uterus September 01, 2024 3:40 pm 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 3:40pm Obesity affecting September 01, 2 025 3:40pm September 01, 2024 3:40 pm Supervision of high-risk September 01, 2024 3:40pm Pvpra-Bbdogfayb-Wawre syndrome August 3:40pm Former smoker, stopped smoking in [place] [email or web address] past September 01, 2024 3:40pm Hemorrhagic cyst of ovary September 01 3:40pm History of marijuana use September 01, 2024 3:40pm History of nicotine vaping September 01 3:40pm PCOS (polycystic ovarian syndrome) September 01, 2024 3:40pm at early stage September 01, 2024 3:40pm Spotting in early September 01 3:40pm Vaginal discharge September 01, 2024 3:40 pm Anxiety October 01, 2024 11:2 9am Bicornuate uterus October 01, 2024 11:2 9am History of recurrent miscarriages September 082024 11:29am Migraine headache October 01, 2024 11:2 9am Obesity affecting October 01 025 11:29am October 01, 2024 11:2 9am Supervision of high-risk October 01, 2024 11:29am Gpmiz-Rkwiwangx-Edajg syndrome September 11:29am Former smoker, stopped smoking [place] October 01, 2024 11:29am Hemorrhagic cyst of ovary October 01 11:29am History of marijuana use October 01, 2024 11:29am History of nicotine vaping October 01 11:29am PCOS (polycystic ovarian syndrome) October 01, 2024 11:29am at early stage October 01, 2024 11:29am Spotting in early October 01 11:29am Vaginal discharge October 01, 2024 11:2 9am Chief Complaint Admit Date EOER July 08, [...] per JV September 01, 2024 3:40 pm migraine September 29, 2024 9:44 pm 16wk ob October 01, 2024 11:2 9am E ORDERS October 01, 2024 12:3 6pm Chief Complaint Admit Date EOER July 08, [...] per JV September 01, 2024 3:40 pm migraine September 29, 2024 9:44 pm 16wk ob October 01, 2024 11:2 9am E ORDERS October 01, 2024 12:3 6pm OB high BP - see note October 11, 2024 1 2:58pm Reason for Visit Admit Date Anxiety July 16, 2024 1:06pm 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 16, 2024 1:06pm History of recurrent miscarriages July 1:06pm Obesity affecting July 16 1:06pm July 16, 2024 1:06pm Supervision of high-risk July 162024 1:06pm Wubsy-Xxtgbrdrd-Mkpmr syndrome July 16, 2024 1:06pm Former smoker, stopped smoking [place] past July 16, 2024 1:06pm Hemorrhagic cyst of ovary July 16, 2024 1:06pm History of marijuana use July 16, 2024 1 :06pm History of nicotine vaping July 16, 2024 1:06pm PCOS (polycystic ovarian syndrome) July 162024 1:06pm at early stage July 16, 2024 1 :06pm Spotting in early July 16 1:06pm Vaginal discharge July 16, 2024 1:06pm Anxiety July 27, 2024 10:11 am 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 27, 2024 10:11 am History of recurrent miscarriages July 272024 10:11am Obesity affecting July 27 10:11am July 27, 2024 10:11 am Supervision of high-risk July 092024 10:11am Yxutp-Zazkjigau-Eoqez syndrome July 27, 2024 10:11am Former smoker, stopped smoking in past July 27, 2024 10:11am Hemorrhagic cyst of ovary July 27, 2024 10:11am History of marijuana use July 27, 2024 10:11am History of nicotine vaping July 27 10:11am PCOS (polycystic ovarian syndrome) July 092024 10:11am at early stage July 27, 2024 10:11am Spotting in early July 27 10:11am Vaginal discharge July 27, 2024 10:11 am Asymptomatic bacteriuria during pregnanc y July 27, 2024 10:11am Vaginal bleeding affecting early pregnan cy July 27, 2024 10:11am Anxiety August 03, 2024 2:51p m Bicornuate uterus August 03, 2024 2:51p m History of recurrent miscarriages August 032024 2:51pm Obesity affecting August 03 2:51pm August 03, 2024 2:51p m Supervision of high-risk July 092024 2:51pm Bdkgv-Dyssjaezm-Urysa syndrome August 03, 2024 2:51pm Former smoker, stopped smoking in past August 03, 2024 2:51pm Hemorrhagic cyst of ovary August 03, 2024 2:51pm History of marijuana use August 03, 2024 2:51pm History of nicotine vaping August 03 2:51pm PCOS (polycystic ovarian syndrome) July 092024 2:51pm at early stage August 03, 2024 2:51pm Spotting in early August 03 2:51pm Vaginal discharge August 03, 2024 2:51p m Anxiety August 09, 2024 1:57p m Bicornuate uterus August 09, 2024 1:57p m 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 1:57pm Obesity affecting August 09 1:57pm August 09, 2024 1:57p m Supervision of high-risk August 09, 2024 1:57pm Hlmgx-Mfgedywkw-Chebf syndrome August 09, 2024 1:57pm Former smoker, stopped smoking in [place] t past August 09, 2024 1:57pm Hemorrhagic cyst of ovary August 09, 2024 1:57pm History of marijuana use August 09, 2024 1:57pm History of nicotine vaping August 09 1:57pm PCOS (polycystic ovarian syndrome) August 09, 2024 1:57pm at early stage August 09, 2024 1:57pm Spotting in early August 09 1:57pm Vaginal discharge August 09, 2024 1:57p m Anxiety August 13, 2024 3:43p m Bicornuate uterus August 13, 2024 3:43p m History of recurrent miscarriages August 132024 3:43pm Obesity affecting August 13 3:43pm August 13, 2024 3:43p m Supervision of high-risk August 13, 2024 3:43pm Jyaty-Wunqygecz-Lypwc syndrome August 13, 2024 3:43pm Former smoker, stopped smoking in [place] [email or web address] past August 13, 2024 3:43pm Hemorrhagic cyst of ovary August 13, 2024 3:43pm History of marijuana use August 13, 2024 3:43pm History of nicotine vaping August 13 3:43pm PCOS (polycystic ovarian syndrome) August 13, 2024 3:43pm at early stage August 13, 2024 3:43pm Spotting in early August 13 3:43pm Vaginal discharge August 13, 2024 3:43p m Anxiety August 16, 2024 3:41p m Bicornuate uterus August 16, 2024 3:41p m History of recurrent miscarriages August 162024 3:41pm Obesity affecting August 16 3:41pm August 16, 2024 3:41p m Supervision of high-risk August 16, 2024 3:41pm Xtyts-Cmbjhaclh-Ittch syndrome August 16, 2024 3:41pm Former smoker, stopped smoking [place] past August 16, 2024 3:41pm Hemorrhagic cyst of ovary August 16, 2024 3:41pm History of marijuana use August 16, 2024 3:41pm History of nicotine vaping August 16 3:41pm PCOS (polycystic ovarian syndrome) August 16, 2024 3:41pm at early stage August 16, 2024 3:41pm Spotting in early August 16 3:41pm Vaginal discharge August 16, 2024 3:41p m Anxiety August 27, 2024 1:59 pm Bicornuate uterus August 27, 2024 1:59 pm 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 1:59pm Obesity affecting August 27 2 025 1:59pm August 27, 2024 1:59 pm Supervision of high-risk August 27, 2024 1:59pm Kdass-Zqybonadb-Enqws syndrome August 1:59pm Former smoker, stopped smoking [place] past August 27, 2024 1:59pm Hemorrhagic cyst of ovary August 27 1:59pm History of marijuana use August 27, 2024 1:59pm History of nicotine vaping August 27 1:59pm PCOS (polycystic ovarian syndrome) August 27, 2024 1:59pm at early stage August 27, 2024 1:59pm Spotting in early August 27 2 025 1:59pm Vaginal discharge August 27, 2024 1:59 pm Anxiety September 01, 2024 3:40 pm Bicornuate uterus September 01, 2024 3:40 pm 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 3:40pm Obesity affecting September 01, 2 025 3:40pm September 01, 2024 3:40 pm Supervision of high-risk September 01, 2024 3:40pm Nkzag-Kpctittwk-Hiyua syndrome August 3:40pm Former smoker, stopped smoking in [place] past September 01, 2024 3:40pm Hemorrhagic cyst of ovary September 01 3:40pm History of marijuana use September 01, 2024 3:40pm History of nicotine vaping September 01 3:40pm PCOS (polycystic ovarian syndrome) September 01, 2024 3:40pm at early stage September 01, 2024 3:40pm Spotting in early September 01, 2 025 3:40pm Vaginal discharge September 01, 2024 3:40 pm Anxiety October 01, 2024 11:2 9am Bicornuate uterus October 01, 2024 11:2 9am History of recurrent miscarriages September 082024 11:29am Migraine headache October 01, 2024 11:2 9am Obesity affecting October 01 11:29am October 01, 2024 11:2 9am Supervision of high-risk October 01, 2024 11:29am Zfstt-Zqnyjtfju-Yzubl syndrome September 11:29am Former smoker, stopped smoking in [place] past October 01, 2024 11:29am Hemorrhagic cyst of ovary October 01 11:29am History of marijuana use October 01, 2024 11:29am History of nicotine vaping October 01 11:29am PCOS (polycystic ovarian syndrome) October 01, 2024 11:29am at early stage October 01, 2024 11:29am Spotting in early October 01 11:29am Vaginal discharge October 01, 2024 11:2 9am Anxiety October 11, 2024 12: 58pm Bicornuate uterus October 11, 2024 12: 58pm History of recurrent miscarriages October 11, 2024 12:58pm Migraine headache October 11, 2024 12: 58pm Obesity affecting October 11, 2024 12:58pm October 11, 2024 12: 58pm Supervision of high-risk Augus 2024 12:58pm Napsh-Naptekdct-Vzqpl syndrome October 12:58pm Chronic hypertension affecting October 11, 2024 12:58pm Chief Complaint Admit Date EORDER July 08, [...] per JV September 01, 2024 3:40 pm migraine September 29, 2024 9:44 pm 16wk ob October 01, 2024 11:2 9am E ORDERS October 01, 2024 12:3 6pm OB high BP - see note October 11, 2024 1 2:58pm HTN/MIBCL-VALNPOGTN-LXQIR SYNDROME (MLYENE ZULUAGA) October 12, 2024 1:40pm Reason for Visit Admit Date Anxiety July 16, 2024 1:06pm 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 16, 2024 1:06pm History of recurrent miscarriages July 1:06pm Obesity affecting July 16 1:06pm July 16, 2024 1:06pm Supervision of high-risk July 162024 1:06pm Wmhuf-Vznkazqbh-Xasdr syndrome July 16, 2024 1:06pm Former smoker, stopped smoking in [employer] past July 16, 2024 1:06pm Hemorrhagic cyst of ovary July 16, 2024 1:06pm History of marijuana use July 16, 2024 1 :06pm History of nicotine vaping July 16, 2024 1:06pm PCOS (polycystic ovarian syndrome) July 162024 1:06pm at early stage July 16, 2024 1 :06pm Spotting in early July 16 1:06pm Vaginal discharge July 16, 2024 1:06pm Anxiety July 27, 2024 10:11 am 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 27, 2024 10:11 am History of recurrent miscarriages July 272024 10:11am Obesity affecting July 27 10:11am July 27, 2024 10:11 am Supervision of high-risk July 092024 10:11am Zxhew-Hctjhqqrb-Zfarl syndrome July 27, 2024 10:11am Former smoker, stopped smoking in [employer] past July 27, 2024 10:11am Hemorrhagic cyst of ovary July 27, 2024 10:11am History of marijuana use July 27, 2024 10:11am History of nicotine vaping July 27 10:11am PCOS (polycystic ovarian syndrome) July 092024 10:11am at early stage July 27, 2024 10:11am Spotting in early July 27 10:11am Vaginal discharge July 27, 2024 10:11 am Asymptomatic bacteriuria during pregnanc y July 27, 2024 10:11am Vaginal bleeding affecting early pregnan cy July 27, 2024 10:11am Anxiety August 03, 2024 2:51p m Bicornuate uterus August 03, 2024 2:51p m History of recurrent miscarriages August 032024 2:51pm Obesity affecting August 03 2:51pm August 03, 2024 2:51p m Supervision of high-risk July 092024 2:51pm Gnhae-Xeftinkzf-Xgskk syndrome August 03, 2024 2:51pm Former smoker, stopped smoking in [place] [email or web address] past August 03, 2024 2:51pm Hemorrhagic cyst of ovary August 03, 2024 2:51pm History of marijuana use August 03, 2024 2:51pm History of nicotine vaping August 03 2:51pm PCOS (polycystic ovarian syndrome) July 092024 2:51pm at early stage August 03, 2024 2:51pm Spotting in early August 03 2:51pm Vaginal discharge August 03, 2024 2:51p m Anxiety August 09, 2024 1:57p m Bicornuate uterus August 09, 2024 1:57p m 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 1:57pm Obesity affecting August 09 1:57pm August 09, 2024 1:57p m Supervision of high-risk August 09, 2024 1:57pm Dkmiy-Vuvvxqant-Wznwa syndrome August 09, 2024 1:57pm Former smoker, stopped smoking [place] [facility] past August 09, 2024 1:57pm Hemorrhagic cyst of ovary August 09, 2024 1:57pm History of marijuana use August 09, 2024 1:57pm History of nicotine vaping August 09 1:57pm PCOS (polycystic ovarian syndrome) August 09, 2024 1:57pm at early stage August 09, 2024 1:57pm Spotting in early August 09 1:57pm Vaginal discharge August 09, 2024 1:57p m Anxiety August 13, 2024 3:43p m Bicornuate uterus August 13, 2024 3:43p m History of recurrent miscarriages August 132024 3:43pm Obesity affecting August 13 3:43pm August 13, 2024 3:43p m Supervision of high-risk August 13, 2024 3:43pm Zgiar-Fusyssjws-Jxjer syndrome August 13, 2024 3:43pm Former smoker, stopped smoking in [employer] past August 13, 2024 3:43pm Hemorrhagic cyst of ovary August 13, 2024 3:43pm History of marijuana use August 13, 2024 3:43pm History of nicotine vaping August 13 3:43pm PCOS (polycystic ovarian syndrome) August 13, 2024 3:43pm at early stage August 13, 2024 3:43pm Spotting in early August 13 3:43pm Vaginal discharge August 13, 2024 3:43p m Anxiety August 16, 2024 3:41p m Bicornuate uterus August 16, 2024 3:41p m History of recurrent miscarriages August 162024 3:41pm Obesity affecting August 16 3:41pm August 16, 2024 3:41p m Supervision of high-risk August 16, 2024 3:41pm Gkbix-Hhhaiumxg-Mkzqg syndrome August 16, 2024 3:41pm Former smoker, stopped smoking in [employer] past August 16, 2024 3:41pm Hemorrhagic cyst of ovary August 16, 2024 3:41pm History of marijuana use August 16, 2024 3:41pm History of nicotine vaping August 16 3:41pm PCOS (polycystic ovarian syndrome) August 16, 2024 3:41pm at early stage August 16, 2024 3:41pm Spotting in early August 16 3:41pm Vaginal discharge August 16, 2024 3:41p m Anxiety August 27, 2024 1:59 pm Bicornuate uterus August 27, 2024 1:59 pm 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 1:59pm Obesity affecting August 27, 2 025 1:59pm August 27, 2024 1:59 pm Supervision of high-risk August 27, 2024 1:59pm Gtfdg-Zrdtvwljh-Quwoh syndrome August 1:59pm Former smoker, stopped smoking in [place] [facility] past August 27, 2024 1:59pm Hemorrhagic cyst of ovary August 27 1:59pm History of marijuana use August 27, 2024 1:59pm History of nicotine vaping August 27 1:59pm PCOS (polycystic ovarian syndrome) August 27, 2024 1:59pm at early stage August 27, 2024 1:59pm Spotting in early August 27, 2 025 1:59pm Vaginal discharge August 27, 2024 1:59 pm Anxiety September 01, 2024 3:40 pm Bicornuate uterus September 01, 2024 3:40 pm 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 3:40pm Obesity affecting September 01, 2 025 3:40pm September 01, 2024 3:40 pm Supervision of high-risk September 01, 2024 3:40pm Pivsn-Xiyizsbbo-Fipfo syndrome August 3:40pm Former smoker, stopped smoking in [place] [email or web address] past September 01, 2024 3:40pm Hemorrhagic cyst of ovary September 01 3:40pm History of marijuana use September 01, 2024 3:40pm History of nicotine vaping September 01 3:40pm PCOS (polycystic ovarian syndrome) September 01, 2024 3:40pm at early stage September 01, 2024 3:40pm Spotting in early September 01 2 025 3:40pm Vaginal discharge September 01, 2024 3:40 pm Anxiety October 01, 2024 11:2 9am Bicornuate uterus October 01, 2024 11:2 9am History of recurrent miscarriages September 082024 11:29am Migraine headache October 01, 2024 11:2 9am Obesity affecting October 01, 2 025 11:29am October 01, 2024 11:2 9am Supervision of high-risk October 01, 2024 11:29am Xeaji-Pysybtxcl-Qcmvl syndrome September 11:29am Former smoker, stopped smoking in [place] [email or web address] past October 01, 2024 11:29am Hemorrhagic cyst of ovary October 01 11:29am History of marijuana use October 01, 2024 11:29am History of nicotine vaping October 01 11:29am PCOS (polycystic ovarian syndrome) October 01, 2024 11:29am at early stage October 01, 2024 11:29am Spotting in early October 01, 2 025 11:29am Vaginal discharge October 01, 2024 11:2 9am Anxiety October 11, 2024 12: 58pm Bicornuate uterus October 11, 2024 12: 58pm History of recurrent miscarriages October 11, 2024 12:58pm Migraine headache October 11, 2024 12: 58pm Obesity affecting October 11, 2024 12:58pm October 11, 2024 12: 58pm Supervision of high-risk Augus t 2024 12:58pm Ykoiq-Yjzprdiqf-Uewgt syndrome October 12:58pm Chronic hypertension affecting October 11, 2024 12:58pm Concealed Ldrri-Qchnkucxz-Twcul (WPW) pa ttern October 12, 2024 1:40pm Palpitations October 12, 2024 1:4 0pm Chronic hypertension affecting October 12, 2024 1:40pm Chief Complaint Admit Date PNOB/Confirmation of July 16, 2024 1:06pm SPOTTING [...] per JV September 01, 2024 3:40 pm migraine September 29, 2024 9:44 pm 16wk ob October 01, 2024 11:2 9am E ORDERS October 01, 2024 12:3 6pm OB high BP - see note October 11, 2024 1 2:58pm HTN/FNBUF-TKPLHQGIQ-EYNWO SYNDROME ([facility]) October 12, 2024 1:40pm ARRYHTHMIA November 05, 2024 8: 43am Chief Complaint Admit Date vag bleed preg July 25, 2024 11:12 [...] per JV September 01, 2024 3:40 pm migraine September 29, 2024 9:44 pm 16wk ob October 01, 2024 11:2 9am E ORDERS October 01, 2024 12:3 6pm OB high BP - see note October 11, 2024 1 2:58pm HTN/EOSWJ-IXLYWVMMO-RJTNO SYNDROME ([place]) October 12, 2024 1:40pm ARRYHTHMIA November 05, 2024 8: 43am Strong vaginal odor November 19, 2024 9:04am Reason for Visit Admit Date Anxiety July 27, 2024 10:11 am 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 27, 2024 10:11 am History of recurrent miscarriages July 272024 10:11am Ewxxa-Ljsiepokn-Mrpms syndrome July 27, 2024 10:11am Former smoker, [place] [facility] past July 27, 2024 10:11am Hemorrhagic cyst of ovary July 27, 2024 10:11am History of marijuana use July 27, 2024 10:11am History of nicotine vaping July 27 10:11am PCOS (polycystic ovarian syndrome) July 092024 10:11am at early stage July 27, 2024 10:11am Spotting in early July 27 10:11am Vaginal discharge July 27, 2024 10:11 am Asymptomatic bacteriuria during pregnanc y July 27, 2024 10:11am Obesity affecting July 27 10:11am July 27, 2024 10:11 am Supervision of high-risk July 092024 10:11am Vaginal bleeding affecting early pregnan cy July 27, 2024 10:11am Anxiety August 03, 2024 2:51p m Bicornuate uterus August 03, 2024 2:51p m History of recurrent miscarriages August 032024 2:51pm Govdl-Zubkykhmm-Ivmhq syndrome August 03, 2024 2:51pm Former smoker, stopped smoking [place] [facility] past August 03, 2024 2:51pm Hemorrhagic cyst of ovary August 03, 2024 2:51pm History of marijuana use August 03, 2024 2:51pm History of nicotine vaping August 03 2:51pm PCOS (polycystic ovarian syndrome) July 092024 2:51pm at early stage August 03, 2024 2:51pm Spotting in early August 03 2:51pm Vaginal discharge August 03, 2024 2:51p m Obesity affecting August 03 2:51pm August 03, 2024 2:51p m Supervision of high-risk July 092024 2:51pm Anxiety August 09, 2024 1:57p m Bicornuate uterus August 09, 2024 1:57p m 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 1:57pm Wnmuc-Ohxvsuvco-Rfpkv syndrome August 09, 2024 1:57pm Former smoker, stopped smoking in [place] past August 09, 2024 1:57pm Hemorrhagic cyst of ovary August 09, 2024 1:57pm History of marijuana use August 09, 2024 1:57pm History of nicotine vaping August 09 1:57pm PCOS (polycystic ovarian syndrome) August 09, 2024 1:57pm at early stage August 09, 2024 1:57pm Spotting in early August 09 1:57pm Vaginal discharge August 09, 2024 1:57p m Obesity affecting August 09 1:57pm August 09, 2024 1:57p m Supervision of high-risk August 09, 2024 1:57pm Anxiety August 13, 2024 3:43p m Bicornuate uterus August 13, 2024 3:43p m History of recurrent miscarriages August 132024 3:43pm Mgqse-Ictvgargv-Ugguq syndrome August 13, 2024 3:43pm Former smoker, stopped smoking in [place] [email or web address] past August 13, 2024 3:43pm Hemorrhagic cyst of ovary August 13, 2024 3:43pm History of marijuana use August 13, 2024 3:43pm History of nicotine vaping August 13 3:43pm PCOS (polycystic ovarian syndrome) August 13, 2024 3:43pm at early stage August 13, 2024 3:43pm Spotting in early August 13 3:43pm Vaginal discharge August 13, 2024 3:43p m Obesity affecting August 13 3:43pm August 13, 2024 3:43p m Supervision of high-risk August 13, 2024 3:43pm Anxiety August 16, 2024 3:41p m Bicornuate uterus August 16, 2024 3:41p m History of recurrent miscarriages August 162024 3:41pm Tmntc-Usgmxzdbn-Xtklk syndrome August 16, 2024 3:41pm Former smoker, stopped smoking in [place] [email or web address] past August 16, 2024 3:41pm Hemorrhagic cyst of ovary August 16, 2024 3:41pm History of marijuana use August 16, 2024 3:41pm History of nicotine vaping August 16 3:41pm PCOS (polycystic ovarian syndrome) August 16, 2024 3:41pm at early stage August 16, 2024 3:41pm Spotting in early August 16 3:41pm Vaginal discharge August 16, 2024 3:41p m Obesity affecting August 16 3:41pm August 16, 2024 3:41p m Supervision of high-risk August 16, 2024 3:41pm Anxiety August 27, 2024 1:59 pm Bicornuate uterus August 27, 2024 1:59 pm 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 1:59pm Sstzo-Bvtglpueo-Bvwtz syndrome August 1:59pm Former smoker, stopped smoking in [place] [email or web address] past August 27, 2024 1:59pm Hemorrhagic cyst of ovary August 27 1:59pm History of marijuana use August 27, 2024 1:59pm History of nicotine vaping August 27 1:59pm PCOS (polycystic ovarian syndrome) August 27, 2024 1:59pm at early stage August 27, 2024 1:59pm Spotting in early August 27, 2 025 1:59pm Vaginal discharge August 27, 2024 1:59 pm Obesity affecting August 27, 2 025 1:59pm August 27, 2024 1:59 pm Supervision of high-risk August 27, 2024 1:59pm Anxiety September 01, 2024 3:40 pm Bicornuate uterus September 01, 2024 3:40 pm 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 3:40pm Vqzcv-Vcsrsbeui-Cknga syndrome August 3:40pm Former smoker, stopped smoking [place] [facility] past September 01, 2024 3:40pm Hemorrhagic cyst of ovary September 01 3:40pm History of marijuana use September 01, 2024 3:40pm History of nicotine vaping September 01 3:40pm PCOS (polycystic ovarian syndrome) September 01, 2024 3:40pm at early stage September 01, 2024 3:40pm Spotting in early September 01, 2 025 3:40pm Vaginal discharge September 01, 2024 3:40 pm Obesity affecting September 01, 2 025 3:40pm September 01, 2024 3:40 pm Supervision of high-risk September 01, 2024 3:40pm Anxiety October 01, 2024 11:2 9am Bicornuate uterus October 01, 2024 11:2 9am History of recurrent miscarriages September 082024 11:29am Migraine headache October 01, 2024 11:2 9am Mexoa-Lkksgpoai-Xjtzm syndrome September 11:29am Former smoker, stopped smoking in [place] [facility] past October 01, 2024 11:29am Hemorrhagic cyst of ovary October 01 11:29am History of marijuana use October 01, 2024 11:29am History of nicotine vaping October 01 11:29am PCOS (polycystic ovarian syndrome) October 01, 2024 11:29am at early stage October 01, 2024 11:29am Spotting in early October 01, 2 025 11:29am Vaginal discharge October 01, 2024 11:2 9am Obesity affecting October 01 2 025 11:29am October 01, 2024 11:2 9am Supervision of high-risk October 01, 2024 11:29am Anxiety October 11, 2024 12: 58pm Bicornuate uterus October 11, 2024 12: 58pm History of recurrent miscarriages October 11, 2024 12:58pm Migraine headache October 11, 2024 12: 58pm Xrflf-Xmaeuirmz-Dptry syndrome October 12:58pm Chronic hypertension affecting October 11, 2024 12:58pm Obesity affecting October 11, 2024 12:58pm October 11, 2024 12: 58pm Supervision of high-risk Augus 2024 12:58pm Concealed Hlkzk-Iiexxytdu-Jkhlr (WPW) pa ttern October 12, 2024 1:40pm Palpitations October 12, 2024 1:4 0pm Chronic hypertension affecting October 12, 2024 1:40pm Chief Complaint Admit Date 9wk ob per JV August 13, 2024 3:43p m 10wk ob per JV August 16, 2024 3:41p m 11wk ob per JV August 27, 2024 1:59 pm 12wk ob per JV September 01, 2024 3:40 pm migraine September 29, 2024 9:44 pm 16wk ob October 01, 2024 11:2 9am E ORDERS October 01, 2024 12:3 6pm OB high BP - see note October 11, 2024 1 2:58pm HTN/BHQSW-IMNZPOEMV-LVQJN SYNDROME ([place]) October 12, 2024 1:40pm ARRYHTHMIA November 05, 2024 8: 43am Strong vaginal odor November 19, 2024 9:04am Reason for Visit Admit Date Anxiety August 13, 2024 3:43p m Bicornuate uterus August 13, 2024 3:43p m History of recurrent miscarriages August 132024 3:43pm Ymtga-Slsdsyzbd-Kymcg syndrome August 13, 2024 3:43pm Former smoker, [place] [facility] [place] August 13, 2024 3:43pm Hemorrhagic cyst of ovary August 13, 2024 3:43pm History of marijuana use August 13, 2024 3:43pm History of nicotine vaping August 13 3:43pm PCOS (polycystic ovarian syndrome) August 13, 2024 3:43pm at early stage August 13, 2024 3:43pm Spotting in early August 13 3:43pm Vaginal discharge August 13, 2024 3:43p m Obesity affecting August 13 3:43pm August 13, 2024 3:43p m Supervision of high-risk August 13, 2024 3:43pm Anxiety August 16, 2024 3:41p m Bicornuate uterus August 16, 2024 3:41p m History of recurrent miscarriages August 162024 3:41pm Zeyla-Wwayqnpnb-Tabga syndrome August 16, 2024 3:41pm Former smoker, stopped smoking [place] [facility] past August 16, 2024 3:41pm Hemorrhagic cyst of ovary August 16, 2024 3:41pm History of marijuana use August 16, 2024 3:41pm History of nicotine vaping August 16 3:41pm PCOS (polycystic ovarian syndrome) August 16, 2024 3:41pm at early stage August 16, 2024 3:41pm Spotting in early August 16 3:41pm Vaginal discharge August 16, 2024 3:41p m Obesity affecting August 16 3:41pm August 16, 2024 3:41p m Supervision of high-risk August 16, 2024 3:41pm Anxiety August 27, 2024 1:59 pm Bicornuate uterus August 27, 2024 1:59 pm 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 1:59pm Sfqsf-Lbjfljyrt-Wdmpu syndrome August 1:59pm Former smoker, stopped smoking [place] [facility] past August 27, 2024 1:59pm Hemorrhagic cyst of ovary August 27 1:59pm History of marijuana use August 27, 2024 1:59pm History of nicotine vaping August 27 1:59pm PCOS (polycystic ovarian syndrome) August 27, 2024 1:59pm at early stage August 27, 2024 1:59pm Spotting in early August 27, 025 1:59pm Vaginal discharge August 27, 2024 1:59 pm Obesity affecting August 27, 2 025 1:59pm August 27, 2024 1:59 pm Supervision of high-risk August 27, 2024 1:59pm Anxiety September 01, 2024 3:40 pm Bicornuate uterus September 01, 2024 3:40 pm 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 3:40pm Pllrw-Fybslawmm-Lkwmo syndrome August 3:40pm Former smoker, stopped smoking in [employer] past September 01, 2024 3:40pm Hemorrhagic cyst of ovary September 01 3:40pm History of marijuana use September 01, 2024 3:40pm History of nicotine vaping September 01 3:40pm PCOS (polycystic ovarian syndrome) September 01, 2024 3:40pm at early stage September 01, 2024 3:40pm Spotting in early September 01, 025 3:40pm Vaginal discharge September 01, 2024 3:40 pm Obesity affecting September 01 025 3:40pm September 01, 2024 3:40 pm Supervision of high-risk September 01, 2024 3:40pm Anxiety October 01, 2024 11:2 9am Bicornuate uterus October 01, 2024 11:2 9am History of recurrent miscarriages September 082024 11:29am Migraine headache October 01, 2024 11:2 9am Puans-Cfigeyvat-Sjdqd syndrome September 11:29am Former smoker, stopped smoking in [employer] past October 01, 2024 11:29am Hemorrhagic cyst of ovary October 01 11:29am History of marijuana use October 01, 2024 11:29am History of nicotine vaping October 01 11:29am PCOS (polycystic ovarian syndrome) October 01, 2024 11:29am at early stage October 01, 2024 11:29am Spotting in early October 01, 025 11:29am Vaginal discharge October 01, 2024 11:2 9am Obesity affecting October 01 025 11:29am October 01, 2024 11:2 9am Supervision of high-risk October 01, 2024 11:29am Anxiety October 11, 2024 12: 58pm Bicornuate uterus October 11, 2024 12: 58pm History of recurrent miscarriages October 11, 2024 12:58pm Migraine headache October 11, 2024 12: 58pm Ftwby-Ospojnprd-Udtqd syndrome October 12:58pm Chronic hypertension affecting October 11, 2024 12:58pm Obesity affecting October 11, 2024 12:58pm October 11, 2024 12: 58pm Supervision of high-risk Augus t 2024 12:58pm Concealed Thqmu-Hiwxnsqmw-Azapn (WPW) pa ttern October 12, 2024 1:40pm Palpitations October 12, 2024 1:4 0pm Chronic hypertension affecting October 12, 2024 1:40pm Vaginal odor November 19, 2024 9:04am Additional Source Comments INFORMATION SOURCE (unrecogn ized section and content) DATE CREATED AUTHOR 09/02/2020 [facility] DATE CREATED AUTHOR AUTHOR'S ORGANIZ ATION 07/26/2021 [facility] DATE CREATED AUTHOR AUTHOR'S ORGANIZ ATION 09/12/2021 [facility] DATE CREATED AUTHOR AUTHOR'S ORGANIZ ATION 09/17/2021 [facility] DATE CREATED AUTHOR AUTHOR'S ORGANIZ ATION 03/01/2022 [facility] DATE CREATED AUTHOR AUTHOR'S ORGANIZ ATION 08/19/2022 [facility] DATE CREATED AUTHOR AUTHOR'S ORGANIZ ATION 04/01/2023 [facility] DATE CREATED AUTHOR AUTHOR'S ORGANIZ ATION 07/17/2024 [facility] DATE CREATED AUTHOR AUTHOR'S ORGANIZ ATION 10/23/2024 [facility] DATE CREATED AUTHOR AUTHOR'S ORGANIZ ATION 11/20/2024 [facility] DATE CREATED AUTHOR AUTHOR'S ORGANIZ ATION 01/19/2025 [facility] DATE CREATED AUTHOR AUTHOR'S ORGANIZ ATION 01/20/2025 [facility] Source Comments (unrecognize d section and content) In the event this informatio n is protected by the Federal Confidentiality of Alcohol and Drug Abuse Patient Records regulations: The Federal rules restrict any use of the information to criminally investigate or prosecute any alcohol or drug abuse patient.[facility] the event this information is protected by the Federal Confidentiality of Alcohol and Drug Abuse Patient Records regulations: The Federal rules restrict any use of the information to criminally investigate or prosecute any alcohol or drug abuse patient.[facility] the event this information is protected by the Federal Confidentiality of Alcohol and Drug Abuse Patient Records regulations: The Federal rules restrict any use of the information to criminally investigate or prosecute any alcohol or drug abuse patient.[facility] the event this information is protected by the Federal Confidentiality of Alcohol and Drug Abuse Patient Records regulations: The Federal rules restrict any use of the information to criminally investigate or prosecute any alcohol or drug abuse patient.[facility] the event this information is protected by the Federal Confidentiality of Alcohol and Drug Abuse Patient Records regulations: The Federal rules restrict any use of the information to criminally investigate or prosecute any alcohol or drug abuse patient.[facility] the event this information is protected by the Federal Confidentiality of Alcohol and Drug Abuse Patient Records regulations: The Federal rules restrict any use of the information to criminally investigate or prosecute any alcohol or drug abuse patient.[facility] the event this information is protected by the Federal Confidentiality of Alcohol and Drug Abuse Patient Records regulations: The Federal rules restrict any use of the information to criminally investigate or prosecute any alcohol or drug abuse patient.[facility] Care Teams (unrecognized sec tion and content) [employer] Relationship Specialty Start Date End Date Marco Mojica MD [address] [place], [place] [phone] PCP - General Family Practice 06/22/20 [employer] Relationship Specialty Start Date End Date Physician, No Pcp PCP - General 07/19/21 [employer] Relationship Specialty Start Date End Date Marco Mojica MD [address] [place] [phone] PCP - General Family Practice 06/22/20 [employer] Relationship Specialty Start Date End Date Physician, No Pcp PCP - General 07/19/21 [employer] Relationship Specialty Start Date End Date Marco Mojica MD [address] [place], [place] [phone] PCP - General Family Medicine 06/22/20 [employer] Relationship Specialty Start Date End Date Marco Mojica MD [address] [place] [phone] PCP - General Family Medicine 06/22/20 [employer] Relationship Specialty Start Date End Date Marco Mojica MD [address] [place] [phone] PCP - General Family Medicine 06/22/20 [employer] Relationship Specialty Start Date End Date Marco Mojica MD [address] [place] [phone] PCP - General Family Medicine 06/22/20 Team [...] August 03, 2024 End: August 03, 2024 Aalyiah Borrego CNM Attending Provider Active S tart: August 03, 2024 End: August 03, 2024 Team Status: Inactive Member Role Status Dates No Primary Care Physician Primary Care Provider Active Start: August 03, 2024 End: August 03, 2024 Dr. Diana Leigh , Attending Provider Activ e Start: August 03, 2024 End: August 03, 2024 Dr. Diana Leigh , Referring Provider Activ e Start: August 03, [...] End: July 21, 2024 Dr. Diana Leigh DO Referring Provider Activ e Start: July 21, 2024 End: July 21, 2024 Team Status: Inactive Member Role/Relationship Status Dates No Primary Care Physician Primary Care Provider Active Start: July 25, 2024 End: July 25, 2024 Dr. Margarito Huston DO Attending Provider Active Start: July 25, [...] July 27, 2024 Dr. Diana Leigh DO Attending [...] August 03, 2024 Dr. Diana Leigh , Attending Provider Activ e Start: August 03, [...] Physician Primary Care Provider Active Start: September 29, 2024 End: September 29, 2024 Dr. Spenser Valero DO Emergency Provider Active Start: September 29, 2024 End: September 29, 2024 Team Status: Inactive Member Role/Relationship Status Dates No Primary Care Physician Primary Care Provider Active Start: October 01, 2024 End: October 01, 2024 No Primary Care Physician Referring Provider Active Start: October 01, 2024 End: October 01, 2024 Dr. Karen Vu MD Attending Provider Active Start: October 01, 2024 End: October 01, 2024 Team Status: Inactive Member Role/Relationship Status Dates No Primary Care Physician Primary Care Provider Active Start: September 29, 2024 End: September 29, 2024 Dr. Spenser Valero DO Attending Provider Active Start: September 29, 2024 End: September 29, 2024 Dr. Spenser Valero DO Emergency Provider Active Start: September 29, 2024 End: September 29, 2024 Team Status: Inactive Member Role/Relationship Status Dates No Primary Care Physician Primary Care Provider Active Start: October 01, 2024 End: October 01, 2024 Dr. Karen Vu MD Attending Provider Active Start: October 01, 2024 End: October 01, 2024 Dr. Karen Vu MD Referring Provider Active Start: October 01, 2024 End: October 01, 2024 Team Status: Inactive Member Role/Relationship Status Dates No Primary Care Physician Primary Care Provider Active Start: October 11, 2024 End: October 11, 2024 No Primary Care Physician Referring Provider Active Start: October 11, 2024 End: October 11, 2024 Dr. Diana Leigh DO Attending Provider Activ e Start: October 11, 2024 End: October 11, 2024 Team Status: Active Member Role/Relationship Status Dates No Primary Care Physician Primary Care Provider Active Start: October 11, 2024 Dr. Diana Leigh DO Attending Provider Activ e Start: October 11, 2024 Dr. Diana Leigh DO Referring Provider Activ e Start: October 11, 2024 Team Status: Inactive Member Role/Relationship Status Dates No Primary Care Physician Primary Care Provider Active Start: October 12, 2024 End: October 12, 2024 No Primary Care Physician Referring Provider Active Start: October 12, 2024 End: October 12, 2024 Dr. Pepe Cuellar MD Attending Provider Active S tart: October 12, 2024 End: October 12, 2024 Team Status: Inactive Member Role/Relationship Status Dates No Primary Care Physician Primary Care Provider Active Start: October 11, 2024 End: October 11, 2024 Dr. Diana Leigh DO Attending Provider Activ e Start: October 11, 2024 End: October 11, 2024 Dr. Diana Leigh DO Referring Provider Activ e Start: October 11, 2024 End: October 11, 2024 Team Status: Inactive Member Role/Relationship Status [...] Physician Primary Care Provider Active Start: September 29, 2024 End: September 29, 2024 Dr. Spenser Valero DO Attending Provider Active Start: September 29, 2024 End: September 29, 2024 Dr. Spenser Valero DO Emergency Provider Active Start: September 29, 2024 End: September 29, 2024 Team Status: Inactive Member Role/Relationship Status Dates No Primary Care Physician Primary Care Provider Active Start: October 01, 2024 End: October 01, 2024 No Primary Care Physician Referring Provider Active Start: October 01, 2024 End: October 01, 2024 Dr. Karen Vu MD Attending Provider Active Start: October 01, 2024 End: October 01, 2024 Team Status: Inactive Member Role/Relationship Status Dates No Primary Care Physician Primary Care Provider Active Start: October 01, 2024 End: October 01, 2024 Dr. Karen Vu MD Attending Provider Active Start: October 01, 2024 End: October 01, 2024 Dr. Karen Vu MD Referring Provider Active Start: October 01, 2024 End: October 01, 2024 Team Status: Inactive Member Role/Relationship Status Dates No Primary Care Physician Primary Care Provider Active Start: October 11, 2024 End: October 11, 2024 No Primary Care Physician Referring Provider Active Start: October 11, 2024 End: October 11, 2024 Dr. Diana Leigh DO Attending Provider Activ e Start: October 11, 2024 End: October 11, 2024 Team Status: Inactive Member Role/Relationship Status Dates No Primary Care Physician Primary Care Provider Active Start: October 11, 2024 End: October 11, 2024 Dr. Diana Leigh DO Attending Provider Activ e Start: October 11, 2024 End: October 11, 2024 Dr. Diana Leigh DO Referring Provider Activ e Start: October 11, 2024 End: October 11, 2024 Team Status: Inactive Member Role/Relationship Status Dates No Primary Care Physician Primary Care Provider Active Start: October 12, 2024 End: October 12, 2024 No Primary Care Physician Referring Provider Active Start: October 12, 2024 End: October 12, 2024 Dr. Pepe Cuellar MD Attending Provider Active S tart: October 12, 2024 End: October 12, 2024 Team Status: Inactive Member Role/Relationship Status Dates No Primary Care Physician Primary Care Provider Active Start: November 05, 2024 End: November 05, 2024 Dr. Pepe Cuellar MD Attending Provider Active S tart: November 05, 2024 End: November 05, 2024 Dr. Pepe Cuellar MD Referring Provider Active S tart: November 05, 2024 End: November 05, 2024 Team Status: Active Member Role/Relationship Status Dates No Primary Care Physician Primary Care Provider Active Start: November 05, 2024 Dr. Pepe Cuellar MD Attending Provider Active S tart: November 05, 2024 Team Status: Inactive Member Role/Relationship Status Dates No Primary Care Physician Primary Care Provider Active Start: July 25, 2024 End: July 25, 2024 Dr. Margarito Huston DO Attending Provider Active Start: July 25, 2024 End: July 25, 2024 Dr. Margarito Huston DO Referring Provider Active Start: July 25, 2024 End: July 25, 2024 Dr. Margarito Huston DO Emergency Provider Active Start: July 25, [...] Physician Primary Care Provider Active Start: September 29, 2024 End: September 29, 2024 Dr. Spenser Valero DO Attending Provider Active Start: September 29, 2024 End: September 29, 2024 Dr. Spenser Valero DO Emergency Provider Active Start: September 29, 2024 End: September 29, 2024 Team Status: Inactive Member Role/Relationship Status Dates No Primary Care Physician Primary Care Provider Active Start: October 01, 2024 End: October 01, 2024 No Primary Care Physician Referring Provider Active Start: October 01, 2024 End: October 01, 2024 Dr. Karen Vu MD Attending Provider Active Start: October 01, 2024 End: October 01, 2024 Team Status: Inactive Member Role/Relationship Status Dates No Primary Care Physician Primary Care Provider Active Start: October 01, 2024 End: October 01, 2024 Dr. Karen Vu MD Attending Provider Active Start: October 01, 2024 End: October 01, 2024 Dr. Karen Vu MD Referring Provider Active Start: October 01, 2024 End: October 01, 2024 Team Status: Inactive Member Role/Relationship Status Dates No Primary Care Physician Primary Care Provider Active Start: October 11, 2024 End: October 11, 2024 No Primary Care Physician Referring Provider Active Start: October 11, 2024 End: October 11, 2024 Dr. Diana Leigh DO Attending Provider Activ e Start: October 11, 2024 End: October 11, 2024 Team Status: Inactive Member Role/Relationship Status Dates No Primary Care Physician Primary Care Provider Active Start: October 11, 2024 End: October 11, 2024 Dr. Diana Leigh DO Attending Provider Activ e Start: October 11, 2024 End: October 11, 2024 Dr. Diana Leigh DO Referring Provider Activ e Start: October 11, 2024 End: October 11, 2024 Team Status: Inactive Member Role/Relationship Status Dates No Primary Care Physician Primary Care Provider Active Start: October 12, 2024 End: October 12, 2024 No Primary Care Physician Referring Provider Active Start: October 12, 2024 End: October 12, 2024 Dr. Pepe Cuellar MD Attending Provider Active S tart: October 12, 2024 End: October 12, 2024 Team Status: Inactive Member Role/Relationship Status Dates No Primary Care Physician Primary Care Provider Active Start: November 05, 2024 End: November 05, 2024 Dr. Pepe Cuellar MD Attending Provider Active S tart: November 05, 2024 End: November 05, 2024 Dr. Pepe Cuellar MD Referring Provider Active S tart: November 05, 2024 End: November 05, 2024 Team Status: Active Member Role/Relationship Status Dates No Primary Care Physician Primary Care Provider Active Start: November 05, 2024 Dr. Pepe Cuellar MD Attending Provider Active S tart: November 05, 2024 Team Status: Inactive Member Role/Relationship Status Dates No Primary Care Physician Referring Provider Active Start: November 19, 2024 End: November 19, 2024 Dr. Karen Vu MD Attending Provider Active Start: November 19, 2024 End: November 19, 2024 Team Status: Inactive Member Role/Relationship Status Dates No Primary Care Physician Primary care physician Activ e Start: August 13, 2024 End: August 13, 2024 No Primary Care Physician Referring Provider Active Start: August 13, 2024 End: August 13, 2024 Felicia Kaur CNM Attending physician Active Start: August 13, 2024 End: August 13, 2024 Team Status: Inactive Member Role/Relationship Status Dates No Primary Care Physician Primary care physician Activ e Start: August 16, 2024 End: August 16, 2024 No Primary Care Physician Referring Provider Active Start: August 16, 2024 End: August 16, 2024 Aaliyah Borrego CNM Attending physician Active Start: August 16, 2024 End: August 16, 2024 Team Status: Inactive Member Role/Relationship Status Dates No Primary Care Physician Primary care physician Activ e Start: August 27, 2024 End: August 27, 2024 Dr. Diana Leigh DO Attending physician Acti ve Start: August 27, 2024 End: August 27, 2024 Dr. Diana Leigh DO Referring Provider Activ e Start: August 27, 2024 End: August 27, 2024 Team Status: Inactive Member Role/Relationship Status Dates No Primary Care Physician Primary care physician Activ e Start: August 27, 2024 End: August 27, 2024 No Primary Care Physician Referring Provider Active Start: August 27, 2024 End: August 27, 2024 Dr. Diana Leigh DO Attending physician Acti ve Start: August 27, 2024 End: August 27, 2024 Team Status: Inactive Member Role/Relationship Status Dates No Primary Care Physician Primary care physician Activ e Start: September 01, 2024 End: September 01, 2024 No Primary Care Physician Referring Provider Active Start: September 01, 2024 End: September 01, 2024 Dr. Diana Leigh DO Attending physician Acti ve Start: September 01, 2024 End: September 01, 2024 Team Status: Inactive Member Role/Relationship Status Dates No Primary Care Physician Primary care physician Activ e Start: September 01, 2024 End: September 01, 2024 Dr. Diana Leigh DO Attending physician Acti ve Start: September 01, 2024 End: September 01, 2024 Team Status: Inactive Member Role/Relationship Status Dates No Primary Care Physician Primary care physician Activ e Start: September 29, 2024 End: September 29, 2024 Dr. Spenser Valero , Attending physician Active Start: September 29, 2024 End: September 29, 2024 Dr. Spenser Valero , DO Emergency Depart ent Physician Active Start: September 29, 2024 End: September 29, 2024 Team Status: Inactive Member Role/Relationship Status Dates No Primary Care Physician Primary care physician Activ e Start: October 01, 2024 End: October 01, 2024 No Primary Care Physician Referring Provider Active Start: October 01, 2024 End: October 01, 2024 Dr. Karen Vu MD Attending physician Active Start: October 01, 2024 End: October 01, 2024 Team Status: Inactive Member Role/Relationship Status Dates No Primary Care Physician Primary care physician Activ e Start: October 01, 2024 End: October 01, 2024 Dr. Karen Vu MD Attending physician Active Start: October 01, 2024 End: October 01, 2024 Dr. Karen Vu MD Referring Provider Active Start: October 01, 2024 End: October 01, 2024 Team Status: Inactive Member Role/Relationship Status Dates No Primary Care Physician Primary care physician Activ e Start: October 11, 2024 End: October 11, 2024 No Primary Care Physician Referring Provider Active Start: October 11, 2024 End: October 11, 2024 Dr. Diana Leigh DO Attending physician Acti ve Start: October 11, 2024 End: October 11, 2024 Team Status: Inactive Member Role/Relationship Status Dates No Primary Care Physician Primary care physician Activ e Start: October 11, 2024 End: October 11, 2024 Dr. Diana Leigh DO Attending physician Acti ve Start: October 11, 2024 End: October 11, 2024 Dr. Diana Leigh DO Referring Provider Activ e Start: October 11, 2024 End: October 11, 2024 Team Status: Inactive Member Role/Relationship Status Dates No Primary Care Physician Primary care physician Activ e Start: October 12, 2024 End: October 12, 2024 No Primary Care Physician Referring Provider Active Start: October 12, 2024 End: October 12, 2024 Dr. Pepe Cuellar MD Attending physician Active Start: October 12, 2024 End: October 12, 2024 Team Status: Inactive Member Role/Relationship Status Dates No Primary Care Physician Primary care physician Activ e Start: November 05, 2024 End: November 05, 2024 Dr. Pepe Cuellar MD Attending physician Active Start: November 05, 2024 End: November 05, 2024 Dr. Pepe Cuellar MD Referring Provider Active S tart: November 05, 2024 End: November 05, 2024 Team Status: Active Member Role/Relationship Status Dates No Primary Care Physician Primary care physician Activ e Start: November 05, 2024 Dr. Pepe Cuellar MD Attending physician Active Start: November 05, 2024 Team Status: Inactive Member Role/Relationship Status Dates No Primary Care Physician Referring Provider Active Start: November 19, 2024 End: November 19, 2024 Dr. Karen Vu MD Attending physician Active Start: November 19, 2024 End: November 19, 2024 Team Status: Inactive Member Role/Relationship Status Dates Dr. Karen Vu MD Attending physician Active Start: November 19, 2024 End: November 19, 2024 Dr. Karen Vu MD Referring Provider Active Start: November 19, 2024 End: November 19, 2024 Reason for Visit (unrecogniz ed section [...] Member Role: Primary Care Physician Address: Address: [address] [place] [address] Care Team Related Persons Name: NATALIE PORTILLO Name: NATALIE PORTILLO Name: NATALIE PORTILLO Goals (unrecognized section and content) Type Care Experience Labor Preferences-CB /BF classes: []labor support person: []labor intervention preferences: []pain management options preferred: []cut cord/dad catch: []: []PP control planned: []discussed possible routes of delivery and associated risks: []special requests: [] Goals may be documented in an alternate section FOR RECORDS PERTAINING TO PATIENTS [...] BE BASED ON THE PRIMARY CLINICAL RECORDS. [facility] [employer] [facility]. provides no warranty or guarantee of the accuracy or completeness of information in this document.
[2025-02-06 23:35] LABS: Internal QC Validated? YES +Cl - CLEAR BKGD; Pregnancy, Serum, hCG Quali. NEGATIVE Negative; Record Kit Lot#, Serum Preg. 980607
[2025-02-06] MEDS: DiphenhydrAMINE 50 MG/ML Syringe 25 MG IV (23:36)
[2025-02-06 23:38] LABS: Mucous, Urine 0 SEEN /hpf (<or=2+); Red Blood Cells-Urine 0 SEEN /hpf (0-5)
[2025-02-06 23:41] LABS: Color, Urine Yellow (Yellow); Glucose, Dipstick Normal (Normal); Ketone-Dipstick Negative (Negative); Leukocyte Esterase-Dipstick Negative /ul (Negative); Nitrite-Dipstick Negative (Negative); Occult Blood-Urine 25 /ul (Negative); Protein-Dipstick Negative (Negative); Specific Gravity, Urine 1.020 (1.002-1.030); Urine Bilirubin Dipstick Negative (Negative)
[2025-02-06 23:50] LABS: AST(SGOT) 17 U/L (<=31); Alanine Aminotransfer ALT/SGPT 18 U/L (<=34); Albumin, Serum 4.3 g/dL (3.5-5.0); Alkaline Phosphatase 89 U/L (35-104); Anion Gap 12 (5-15); BUN 9 mg/dL (4-19); BUN/Creat Ratio 21.0 RATIO (10-20); Calcium,Total 9.4 mg/dL (7.6-11.0); Carbon Dioxide 24.1 mmol/L (21.0-32.0); Chloride 103 mmol/L (98-108); Estimated Creatinine Clearance 243.47 ml/min (50-250); Globulin 2.7 g/dL (2.2-4.2); Glucose 118 mg/dL (70-99); Lipase 29 U/L (13-75); Potassium 3.3 mmol/L (3.3-5.1)
[2025-02-07 00:15] LABS: Hematocrit 41.6 % (37-47); Hemoglobin 14.1 g/dL (12.0-15.0); Immature Granulocytes Count 0.010 X10^3/uL (0.0-0.0); Mean Corp Hgb Conc 33.9 g/dL (32-36); Mean Corpuscular Volume 84.2 fL (81-99); Mean Platelet Vol. 12.1 fl (6.2-12.0); NRBC Flagged by Analyzer 0 % (0-5); Platelet Count 241 K/mm3 (150-450); RBC Distribution Width CV 12.1 % (11.6-14.6); RBC Distribution Width SD 36.5 fl (35.1-43.9); Red Blood Count 4.94 M/mm3 (4.2-5.4); White Blood Count 7.8 K/mm3 (4.4-11.0)
[2025-02-07 00:19] LABS: Squamous Epithelial Cells - UA 25-50 SEEN /hpf (5-10)
[2025-02-07 00:55] VITALS: BP 146/88; PULSE 107; RESP 16; TEMP 36.7; O2SAT 98
[2025-02-07 01:34] VITALS: BP 137/77; PULSE 80; RESP 16; TEMP 36.7; O2SAT 99
--- NOTE | 2025-02-07 23:02 | CT_ITS ---
PROCEDURE: ABDOMEN/PELVIS W IV CONT ONLY 02/06/2025 REASON FOR EXAM: RLQ ABD PAIN TECHNIQUE: Procedure Code: [id number] Modality: CT Procedure: ABDOMEN/PELVIS W IV CONT ONLY Coronal and Sagittal reconstruction series were provided. CONTRAST: 100 mL of Isovue 370 One or more dose reduction techniques were used (e.g., Automated exposure control, adjustment of the mA and/or kV according to patient size, use of iterative reconstruction technique. RADIATION DOSE SUMMARY: DLP: 1331 mGycm COMPARISON: none FINDINGS: Limited sections of the lung bases demonstrate no focal pulmonary mass or consolidations. The liver, spleen, pancreas, and both adrenal glands demonstrate no acute findings. Hepatomegaly to 20.7 cm. 1.2 cm splenic cyst. The gallbladder is contracted The stomach is unremarkable. The small bowel loops are not dilated. The appendix is normal. No colonic obstruction. There is no free air or significant free fluid. The kidneys are unremarkable. The urinary bladder is partially distended. The pelvic structures are intact. There is no solid pelvic mass. No significant lymphadenopathy. The aorta and IVC demonstrate no acute findings. Visualized osseous structures demonstrate no acute abnormality. CT/Abdomen/Pelvis W IV Cont ONLY IMPRESSION: No acute intra-abdominal process. Normal appendix. Reading Location: [id number]
== END 2025-02-07 01:38 | disposition home or self-care (01) ==
PROVIDERS: Emergency Provider Emergency Medicine; PCP Pediatrics; Visit Provider Emergency Medicine
DX: R10.31 Right lower quadrant pain (principal); R11.0 Nausea; K58.0 Irritable bowel syndrome with diarrhea; Z87.891 Personal history of nicotine dependence
CPT/HCPCS: 74177; 80053; 81001; 83690; 84703; 85025; 96374; 96375; 99284; Q9967; A4216; J2405

== ENCOUNTER → 2025-02-11 | Outpatient (CLI) | payer OTHER, SELFPAY ==
--- NOTE | 2025-02-11 08:43 | US_ITS ---
PROCEDURE: TRANSVAGINAL NON- 02/11/2025 REASON FOR EXAM: PELVIC PAIN History of polycystic ovaries. TECHNIQUE: Procedure Code: USTVAG Modality: US Procedure: TRANSVAGINAL NON- COMPARISON: Prior study dated July 25, 2024. FINDINGS: LMP: February 01, 2025. Measurements: Uterus: 8 cm x 5.8 cm x 3.7 cm with a volume of 90.8 mL Endometrial Thickness: 8 mm. It is hyperechoic. Right Ovary: 4.5 cm x 4.5 cm x 3.1 cm with a volume of 33.3 mL. Left Ovary: 4.7 cm x 5 cm x 2.9 cm with a volume of 35.3 mL. Uterus: Normal size, myometrial echotexture, and contour. Endometrium: Unremarkable. Right ovary: Normal size and echotexture.. Multiple follicles are seen. Left ovary: Normal size and echotexture.. Multiple follicles are seen. Other: No large pelvic mass identified. US/Transvaginal Non- IMPRESSION: NORMAL TRANSABDOMINAL PELVIC ULTRASOUND. Reading Location: [place] [id number]
== END | disposition home or self-care (01) ==
LOC: US 08:42
PROVIDERS: PCP Pediatrics; Referring Provider Advanced Practice Midwife; Visit Provider Advanced Practice Midwife
DX: R10.20 Pelvic and perineal pain unspecified side (principal)
CPT/HCPCS: 76830